=== PATIENT | male | born 1975 | race Caucasian/White ===

== ENCOUNTER 2018-01-18 14:51 | Emergency (ER) | payer MEDICAID ==
--- NOTE | 2018-01-18 15:31 | ER ---
Nurse's Notes [facility] Name: Juan Campos Age: 42 yrs Sex: Male : 1975 Arrival Date: 01/18/2018 Time: 14:54 Bed 14 Private MD: None, None Diagnosis: Unspecified hemorrhoids;Rectal pain;Anxiety disorder, unspecified Presentation: 01/18 15:05 Presenting complaint: Patient states: I was having a BM, and i think i strained to hard sg and now its sore down there. Well, when i wiped i also found blood on the tissue and in a little in the toilet. Theres a small bump that is red, i looked using a mirror, its right by the opening of my butt. Transition of care: patient was not received from another setting of care. Onset of symptoms was January 18, 2018. Risk Assessment: Do you want to hurt yourself or someone else? Patient reports no desire to harm self or others. Initial Sepsis Screen: Does the patient meet any 2 criteria? No. Patient's initial sepsis screen is negative. Does the patient have a suspected source of infection? No. Patient's initial sepsis screen is negative. Care prior to arrival: None. 15:05 Method Of Arrival: Ambulatory sg 15:05 Acuity: [place] 4 sg Triage Assessment: 15:15 General: Appears in no apparent distress. ph 16:06 General: Behavior is. ph Historical: - Allergies: 15:05 No Known Allergies; sg - Home Meds: 15:05 None [Active]; sg - PMHx: 15:05 Asthma; sg - PSHx: 15:05 Hernia repair; sg - Immunization history:: Adult Immunizations up to date. - Social history:: Smoking status: Patient/guardian denies using tobacco. - Ebola Screening: : Patient negative for fever greater than or equal to 101.5 degrees Fahrenheit, and additional compatible Ebola Virus Disease symptoms Patient denies exposure to infectious person Patient denies travel to an Ebola-affected area in the 21 days before illness onset No symptoms or risks identified at this time. Screenin:15 Abuse screen: Denies threats or abuse. Denies injuries from another. Nutritional ph screening: No deficits noted. Tuberculosis screening: No symptoms or risk factors identified. Fall Risk None identified. Assessment: 15:15 General: Appears in no apparent distress. uncomfortable, slender, Behavior is ph cooperative, anxious. Pain: Complains of pain in rectum. Neuro: Level of Consciousness is awake, alert, obeys commands, Oriented to person, place, time, situation. Cardiovascular: Capillary refill < 3 seconds in bilateral fingers Patient's skin is warm and dry. Respiratory: Airway is patent Respiratory effort is even, unlabored. GI: Reports rectal bleeding, hemorrhoids. Derm: Skin is intact, is healthy with good turgor. Vital Signs: 15:07 Pulse 83; Resp 16; Temp 98.0; Pulse Ox 100% on R/A; Pain 0/10; sg 15:07 blood pressure in progress at this time ED Course: 14:54 Patient arrived in ED. sb2 14:54 None, None is Private Physician. sb2 14:57 Cindy Portillo, RN is Primary Nurse. ph 14:59 Lis Lujan FNP-C [facility]. snw 14:59 To Wan MD is Attending Physician. snw 15:05 Arm band placed on. sg 15:07 Triage completed. sg 15:15 Patient has correct armband on for positive identification. Placed in gown. Bed in low ph position. Call light in reach. Pulse ox on. NIBP on. 15:51 No provider procedures requiring assistance completed. Patient did not have IV access ph during this emergency room visit. Administered Medications: No medications were administered Point of Care Testing: Blood Glucose: 15:12 Blood Glucose: 128 mg/dL; Ranges: Outcome: 15:30 Discharge ordered by MD. snw 15:51 Patient left the ED. ph 15:51 Discharged to home ambulatory. ph 15:51 Condition: good 15:51 Discharge instructions given to patient, Instructed on discharge instructions, follow up and referral plans. medication usage, Demonstrated understanding of instructions, follow-up care, medications, Prescriptions given X 1. Signatures: Miguel Loera RN RN Lis Lujan FNP-C FNP-Csnw Smirch, Shelby, RN RN Cindy Portillo RN RN Su Walsh sb2 Corrections: (The following items were deleted from the chart) 15:53 15:05 EKG completed in triage. Results shown to MD. ph 15:54 15:00 Abuse screen: Denies threats or abuse. Denies injuries from another. ph ph 15:54 15:00 Nutritional screening: No deficits noted. ph ph 15:54 15:00 Tuberculosis screening: No symptoms or risk factors identified. ph ph :54 15:00 Fall Risk None identified. ph ph
--- NOTE | 2018-01-18 15:31 | EDPHYS ---
Physician Documentation [facility] Name: Juan Campos Age: 42 yrs Sex: Male : 1975 Arrival Date: 01/18/2018 Time: 14:54 Bed 14 Private MD: None, None ED Physician To Wan HPI: 01/18 15:44 This 42 yrs old Male presents to ER via Ambulatory with complaints of Rectal snw Pain, Rectal Bleeding. 15:44 The patient presents to the emergency department with pain in the rectal area, that is snw mild, that is moderate. Onset: The symptoms/episode began/occurred suddenly, 1 week(s) ago, and became persistent. Context: the patient hard stool. Associate signs and symptoms: The patient has no apparent associated signs or symptoms. It is unknown whether or not the patient has had similar symptoms in the past. The patient has not recently seen a physician, the patient's primary care provider is Dr. Dr. Kendall. Historical: - Allergies: 15:05 No Known Allergies; sg - Home Meds: 15:05 None [Active]; sg - PMHx: 15:05 Asthma; sg - PSHx: 15:05 Hernia repair; sg - Immunization history:: Adult Immunizations up to date. - Social history:: Smoking status: Patient/guardian denies using tobacco. - Ebola Screening: : Patient negative for fever greater than or equal to 101.5 degrees Fahrenheit, and additional compatible Ebola Virus Disease symptoms Patient denies exposure to infectious person Patient denies travel to an Ebola-affected area in the 21 days before illness onset No symptoms or risks identified at this time. ROS: 15:42 Constitutional: Negative for fever, chills, and weight loss, Eyes: Negative for injury, snw pain, redness, and discharge, ENT: Negative for injury, pain, and discharge, Neck: Negative for injury, pain, and swelling, Cardiovascular: Negative for chest pain, palpitations, and edema, Respiratory: Negative for shortness of breath, cough, wheezing, and pleuritic chest pain, Back: Negative for injury and pain, : Negative for injury, bleeding, discharge, and swelling, MS/Extremity: Negative for injury and deformity, Skin: Negative for injury, rash, and discoloration, Neuro: Negative for headache, weakness, numbness, tingling, and seizure. 15:42 Abdomen/GI: Positive for rectal pain, s/p BM with significant need to strain. Exam: 15:40 Head/Face: Normocephalic, atraumatic. Eyes: Pupils equal round and reactive to light, snw extra-ocular motions intact. Lids and lashes normal. Conjunctiva and sclera are non-icteric and not injected. Cornea within normal limits. Periorbital areas with no swelling, redness, or edema. ENT: Nares patent. No nasal discharge, no septal abnormalities noted. Tympanic membranes are normal and external auditory canals are clear. Oropharynx with no redness, swelling, or masses, exudates, or evidence of obstruction, uvula midline. Mucous membranes moist. Neck: Trachea midline, no thyromegaly or masses palpated, and no cervical lymphadenopathy. Supple, full range of motion without nuchal rigidity, or vertebral point tenderness. No Meningismus. Chest/axilla: Normal chest wall appearance and motion. Nontender with no deformity. No lesions are appreciated. Cardiovascular: Regular rate and rhythm with a normal S1 and S2. No gallops, murmurs, or rubs. Normal PMI, no JVD. No pulse deficits. Respiratory: Lungs have equal breath sounds bilaterally, clear to auscultation and percussion. No rales, rhonchi or wheezes noted. No increased work of breathing, no retractions or nasal flaring. Abdomen/GI: Soft, non-tender, with normal bowel sounds. No distension or tympany. No guarding or rebound. No evidence of tenderness throughout. + right lateral hemorrhoid noted with mild tenderness, no bleeding 15:40 Back: No spinal tenderness. No costovertebral tenderness. Full range of motion. Skin: Warm, dry with normal turgor. Normal color with no rashes, no lesions, and no evidence of cellulitis. MS/ Extremity: Pulses equal, no cyanosis. Neurovascular intact. Full, normal range of motion. Neuro: Awake and alert, GCS 15, oriented to person, place, time, and situation. Cranial nerves II-XII grossly intact. Motor strength 5/5 in all extremities. Sensory grossly intact. Cerebellar exam normal. Normal gait. 15:40 Constitutional: The patient appears awake, anxious. 15:40 Psych: Behavior/mood is anxious, Affect is animated. Vital Signs: 15:07 Pulse 83; Resp 16; Temp 98.0; Pulse Ox 100% on R/A; Pain 0/10; sg 15:07 blood pressure in progress at this time sg MDM: 14:59 Patient medically screened. snw 15:43 Data reviewed: vital signs, nurses notes. Data interpreted: Pulse oximetry: on room air snw is 100 %. Interpretation: normal. Counseling: I had a detailed discussion with the patient and/or guardian regarding: the historical points, exam findings, and any diagnostic results supporting the discharge/admit diagnosis, the presence of at least one elevated blood pressure reading (>120/80) during this emergency department visit, the need for outpatient follow up, to return to the emergency department if symptoms worsen or persist or if there are any questions or concerns that arise at home. Special discussion: I have referred the patient to see his PCP for further evaluation of high blood pressure. Based on the history and exam findings, there is no indication for further emergent testing or inpatient evaluation. I discussed with the patient/guardian the need to see the primary care provider for further evaluation of the symptoms. I discussed with the patient/guardian the need to see the psychiatrist for further evaluation of the symptoms. Administered Medications: No medications were administered Point of Care Testing: Blood Glucose: 15:12 Blood Glucose: 128 mg/dL; ss Ranges: Critical Glucose Levels:Adult <50 mg/dl or >400 mg/dl <40 mg/dl or >180 mg/dl Disposition: 19:06 Co-signature as Attending Physician, To Wan MD I agree with the assessment and kdr plan of care. Disposition: 01/18/18 15:30 Discharged to Home. Impression: Unspecified hemorrhoids, Rectal pain, Anxiety disorder, unspecified. - Condition is Stable. - Discharge Instructions: Panic Attacks, Hemorrhoids, How to Take a Sitz Bath, Generalized Anxiety Disorder, Nonsurgical Procedures for Hemorrhoids. - Prescriptions for Proctofoam HC 1- 1 % Rectal foam - apply 1 application by TOPICAL route 3-4 times daily; 1 unit. - Medication Reconciliation Form, Thank You Letter, Antibiotic Education, Prescription Opioid Use form. - Follow up: Private Physician; When: 1 - 2 days; Reason: Recheck today's complaints, Continuance of care, Re-evaluation by your physician. Follow up: Emergency Department; When: As needed; Reason: Worsening of condition. Signatures: Miguel Loera RN RN sg To Wan MD MD [facility] Lis Lujan, [employer] MANAGER-C [employer] MANAGER-Csnw Cindy Portillo, RN RN ph Corrections: (The following items were deleted from the chart) 15:51 15:30 01/18/2018 15:30 Discharged to Home. Impression: Unspecified hemorrhoids; Rectal ph pain; Anxiety disorder, unspecified. Condition is Stable. Discharge Instructions: Hemorrhoids, How to Take a Sitz Bath, Nonsurgical Procedures for Hemorrhoids. Prescriptions for Proctofoam HC 1-1 % Rectal foam - apply 1 application by TOPICAL route 3-4 times daily; 1 unit. and Forms are Medication Reconciliation Form, Thank You Letter, Antibiotic Education, Prescription Opioid Use. Follow up: Private Physician; When: 1 - 2 days; Reason: Recheck today's complaints, Continuance of care, Re-evaluation by your physician. Follow up: Emergency Department; When: As needed; Reason: Worsening of condition. snw
== END 2018-01-18 15:51 | disposition home or self-care (01) ==
LOC: ER 14:51
DX: K64.9 Unspecified hemorrhoids (principal); F41.9 Anxiety disorder, unspecified
CPT/HCPCS: 82962; 99283

== ENCOUNTER 2018-01-20 06:34 | Emergency (ER) | payer MEDICAID ==
[2018-01-20 07:34] LABS: Absolute Lymphocytes (CBC) 3.1 K/uL (0.7-4.9); Absolute Monocytes 0.4 K/uL (0.1-1.3); Absolute Neutrophil 4.1 K/uL (1.8-8.0); Basophils % 0.3 % (0-1.3); Eosinophils % 3.1 % (0-4.4); Hematocrit 42.3 % (39.6-49.0); Lymphocytes % 39.8 % (15.3-44.8); MCH 29.7 pg (27.0-35.0); MCV 86.5 fL (80-100); MPV 9.7 fL (7.6-11.3); Monocytes % 5.1 % (3.3-12.3); RBC Red Blood Cell Count 4.89 M/uL (4.33-5.43)
[2018-01-20 07:46] LABS: Albumin 4.2 g/dL (3.4-5.0); Bilirubin Direct 0.2 mg/dL (0-0.2); Bilirubin Total 0.6 mg/dL (0.2-1.0); Potassium 3.3 mmol/L (3.5-5.1); Protein, Total 7.8 g/dL (6.4-8.2)
[2018-01-20] MEDS ORDERED: POTASSIUM CL SA 10 MEQ TAB PO ONE (08:24)
[2018-01-20] MEDS ORDERED: NA CHLORIDE 0.9% 1,000 ML ONE (08:24)
[2018-01-20] MEDS ORDERED: ONDANSETRON 4 MG/2 ML VIAL ONE (08:25)
--- NOTE | 2018-01-20 08:43 | EDPHYS ---
Physician Documentation [facility] Name: Juan Campos Age: 42 yrs Sex: Male : 1975 Arrival Date: 01/20/2018 Time: 06:37 Bed 8 Private MD: ED Physician Bhavesh Brown HPI: 01/20 07:23 This 42 yrs old Male presents to ER via Ambulatory with complaints of kb Vomiting, Weakness, SHAKING. 07:23 The patient presents to the emergency department with nausea, vomiting, abdominal pain, kb of the right lower quadrant and left lower quadrant. Onset: The symptoms/episode began/occurred 4 day(s) ago. Possible causes: sick contacts, mother has gangrene, also worried because someone that was near him last week had AIDS. . The symptoms are aggravated by nothing. The symptoms are alleviated by nothing. Associated signs and symptoms: Pertinent positives: abdominal pain, nausea, vomiting, rectal pain. Severity of symptoms: At their worst the symptoms were moderate in the emergency department the symptoms are unchanged. The patient has not experienced similar symptoms in the past. The patient has not recently seen a physician. Pt states he was visiting his mother out of state last week who has gangrene and is dying. States he went to the restroom and didn't have any toilet paper so he used a rag that was in the bathroom that was previously used by his mother. Pt is afraid he caught something from her and is infected now. States this happened 11 days ago (Tuesday, 01/10), he came home Tuesday (01/13) and his symptoms began on Tuesday (01/17). Was seen here for rectal pain after a hard stool and diagnosed with hemorrhoids. States he is still having rectal pain, hot and cold flashes, lower abd pain, nausea and vomiting. States "I have a lot going on with me. I don't know what is going on." Also concerned because he was near an aids patient so he thinks he could have caught something from him. . Historical: - Allergies: 06:58 No Known Allergies; bb - Home Meds: 06:58 None [Active]; bb - PMHx: 06:58 Bipolar disorder; anxiety; bb - PSHx: 06:58 Hernia repair; bb - Immunization history:: Adult Immunizations not up to date. - Social history:: Smoking status: Patient/guardian denies using tobacco, Patient/guardian denies using alcohol, street drugs. - Ebola Screening: : No symptoms or risks identified at this time. ROS: 07:23 ENT: Negative for injury, pain, and discharge, Neck: Negative for injury, pain, and kb swelling, Cardiovascular: Negative for chest pain, palpitations, and edema, Respiratory: Negative for shortness of breath, cough, wheezing, and pleuritic chest pain, Back: Negative for injury and pain, : Negative for injury, bleeding, discharge, and swelling, MS/Extremity: Negative for injury and deformity, Skin: Negative for injury, rash, and discoloration, Neuro: Negative for headache, weakness, numbness, tingling, and seizure. 07:23 Constitutional: Positive for body aches, chills, Negative for fatigue, fever, malaise, poor PO intake, weight loss. 07:23 Abdomen/GI: Positive for abdominal pain, nausea and vomiting, rectal pain. Exam: 07:23 Head/Face: Normocephalic, atraumatic. Chest/axilla: Normal chest wall appearance and kb motion. Nontender with no deformity. No lesions are appreciated. Cardiovascular: Regular rate and rhythm with a normal S1 and S2. No gallops, murmurs, or rubs. Normal PMI, no JVD. No pulse deficits. Respiratory: Lungs have equal breath sounds bilaterally, clear to auscultation and percussion. No rales, rhonchi or wheezes noted. No increased work of breathing, no retractions or nasal flaring. Abdomen/GI: Soft, non-tender, with normal bowel sounds. No distension or tympany. No guarding or rebound. No evidence of tenderness throughout. Back: No spinal tenderness. No costovertebral tenderness. Full range of motion. Skin: Warm, dry with normal turgor. Normal color with no rashes, no lesions, and no evidence of cellulitis. MS/ Extremity: Pulses equal, no cyanosis. Neurovascular intact. Full, normal range of motion. Neuro: Awake and alert, GCS 15, oriented to person, place, time, and situation. Cranial nerves II-XII grossly intact. Motor strength 5/5 in all extremities. Sensory grossly intact. Cerebellar exam normal. Normal gait. 07:23 Constitutional: The patient appears alert, awake, anxious. Vital Signs: 06:58 BP 127 / 97; Pulse 96; Resp 18 S; Temp 98.9(O); Pulse Ox 100% on R/A; Weight 81.65 kg bb (R); Height 6 ft. 0 in. (182.88 cm) (R); Pain 8/10; 07:32 BP 117 / 77; Pulse 77; Resp 17; Pulse Ox 97% on R/A; tw2 08:37 BP 122 / 83; Pulse 79; Resp 17; Pulse Ox 99% on R/A; tw2 09:11 BP 101 / 79; Pulse 73; Resp 17; Pulse Ox 99% on R/A; Pain 0/10; tw2 06:58 Body Mass Index 24.41 (81.65 kg, 182.88 cm) bb MDM: 06:41 Patient medically screened. kb 07:30 Data reviewed: vital signs, nurses notes. Data interpreted: Pulse oximetry: on room air kb is 100 %. Interpretation: normal. 08:41 Counseling: I had a detailed discussion with the patient and/or guardian regarding: the kb historical points, exam findings, and any diagnostic results supporting the discharge/admit diagnosis, lab results, the need for outpatient follow up, a family practitioner, to return to the emergency department if symptoms worsen or persist or if there are any questions or concerns that arise at home. ED course: Pt states he is feeling much better after treatment. . 01/20 06:50 Order name: Amylase, Serum; Complete Time: 07:54 kb 01/20 06:50 Order name: Basic Metabolic Panel; Complete Time: 07:54 kb 01/20 06:50 Order name: CBC with Diff; Complete Time: 07:41 kb 01/20 06:50 Order name: Hepatic Function; Complete Time: 07:54 kb 01/20 06:50 Order name: Lipase; Complete Time: 07:54 kb 01/20 08:49 Order name: Urine Dipstick--Ancillary (enter results) ag 01/20 06:50 Order name: IV Saline Lock; Complete Time: 06:58 kb 01/20 06:50 Order name: Labs collected and sent; Complete Time: 06:58 kb 01/20 06:50 Order name: Urine Dipstick-Ancillary (obtain specimen); Complete Time: 08:37 kb Administered Medications: 08:36 Drug: Potassium Chloride 20 mEq Route: PO; tw2 09:12 Follow up: Response: No adverse reaction tw2 08:36 Drug: NS 0.9% 1000 ml Route: IV; Rate: 1000 ml; Site: right antecubital; tw2 09:12 Follow up: Response: No adverse reaction; IV Status: Completed infusion; IV Intake: tw2 1000ml 08:36 Drug: Zofran 4 mg Route: IVP; Site: right antecubital; tw2 09:11 Follow up: Response: No adverse reaction tw2 Disposition: 14:45 Co-signature as Attending Physician, Bhavesh Brown MD I agree with the assessment and diane plan of care. Disposition: 01/20/18 08:42 Discharged to Home. Impression: Hemorrhoids and perianal venous thrombosis, Nausea and vomiting, Anxiety disorder, unspecified. - Condition is Stable. - Discharge Instructions: Nausea and Vomiting, Adult, [id number], Panic Attacks, [id number], Hemorrhoids, [id number]. - Prescriptions for Anusol- HC 2.5 % Rectal Cream - Apply to affected area 1 application by TOPICAL route every 8 hours As needed; 30 gram. Zofran 4 mg Oral Tablet - take 1 tablet by ORAL route every 6 hours As needed; 20 tablet. - Medication Reconciliation Form, Thank You Letter, Antibiotic Education, Prescription Opioid Use form. - Follow up: Emergency Department; When: As needed; Reason: Worsening of condition. Follow up: Private Physician; When: 2 - 3 days; Reason: Recheck today's complaints, Continuance of care, Re-evaluation by your physician. Signatures: Dispatcher [employer] [facility] Katherin Garcia, ROMY FAUSTIN-Bhavesh Hussein MD MD cha Ballard, Brenda, DRAKE RN Leia Brar RN RN tw2 Corrections: (The following items were deleted from the chart) 09:13 08:42 01/20/2018 08:42 Discharged to Home. Impression: Hemorrhoids and perianal venous tw2 thrombosis; Nausea and vomiting; Anxiety disorder, unspecified. Condition is Stable. Forms are Medication Reconciliation Form, Thank You Letter, Antibiotic Education, Prescription Opioid Use. Follow up: Emergency Department; When: As needed; Reason: Worsening of condition. Follow up: Private Physician; When: 2 - 3 days; Reason: Recheck today's complaints, Continuance of care, Re-evaluation by your physician. kb
--- NOTE | 2018-01-20 08:43 | ER ---
Nurse's Notes [facility] Name: Juan Campos Age: 42 yrs Sex: Male : 1975 Arrival Date: 01/20/2018 Time: 06:37 Bed 8 Private MD: Diagnosis: Hemorrhoids and perianal venous thrombosis;Nausea and vomiting;Anxiety disorder, unspecified Presentation: 01/20 06:52 Presenting complaint: Patient states: he is not feeling right was here 2 days ago and bb diagnosed with hemorrhoids but now is concerned because he was visiting his mother last week who is dying with gangrene and he is concerned he may have caught something she has, pt c/o hot and cold flashes, weakness, vomiting, rectal pain, shaking. Transition of care: patient was not received from another setting of care. Onset of symptoms was January 19, 2018. Risk Assessment: Do you want to hurt yourself or someone else? Patient reports no desire to harm self or others. Initial Sepsis Screen: Does the patient meet any 2 criteria? No. Patient's initial sepsis screen is negative. Does the patient have a suspected source of infection? No. Patient's initial sepsis screen is negative. Care prior to arrival: None. 06:52 Method Of Arrival: Ambulatory bb 06:52 Acuity: [place] 3 bb Historical: - Allergies: 06:58 No Known Allergies; bb - Home Meds: 06:58 None [Active]; bb - PMHx: 06:58 Bipolar disorder; anxiety; bb - PSHx: 06:58 Hernia repair; bb - Immunization history:: Adult Immunizations not up to date. - Social history:: Smoking status: Patient/guardian denies using tobacco, Patient/guardian denies using alcohol, street drugs. - Ebola Screening: : No symptoms or risks identified at this time. Screenin:49 Abuse screen: Denies threats or abuse. Nutritional screening: No deficits noted. tw2 Tuberculosis screening: No symptoms or risk factors identified. Fall Risk None identified. Assessment: 07:10 General: Appears in no apparent distress. Behavior is calm, appropriate for age. Pain: tw2 Denies pain. Neuro: Level of Consciousness is awake, alert, obeys commands, Oriented to person, place, time, situation. Cardiovascular: Denies chest pain, shortness of breath, Heart tones S1 S2 Patient's skin is warm and dry. Respiratory: Airway is patent Respiratory effort is even, unlabored, Respiratory pattern is regular, symmetrical, Breath sounds are clear bilaterally. GI: Abdomen is flat, non-distended, Bowel sounds present X 4 quads. Reports "maybe i am not eating enough or eating the right foods, i dont know what is wrong with me". : No signs and/or symptoms were reported regarding the genitourinary system. EENT: No signs and/or symptoms were reported regarding the EENT system. Derm: No signs and/or symptoms reported regarding the dermatologic system. Musculoskeletal: Range of motion: intact in all extremities. 07:33 Reassessment: Patient appears in no apparent distress at this time. No changes from tw2 previously documented assessment. Patient and/or family updated on plan of care and expected duration. Pain level reassessed. Patient is alert, oriented x 3, equal unlabored respirations, skin warm/dry/pink. 08:37 Reassessment: Patient appears in no apparent distress at this time. No changes from tw2 previously documented assessment. Patient and/or family updated on plan of care and expected duration. Pain level reassessed. Patient is alert, oriented x 3, equal unlabored respirations, skin warm/dry/pink. Patient states feeling better. 09:11 Reassessment: Patient appears in no apparent distress at this time. No changes from tw2 previously documented assessment. Patient and/or family updated on plan of care and expected duration. Pain level reassessed. Patient is alert, oriented x 3, equal unlabored respirations, skin warm/dry/pink. Patient states feeling better. Vital Signs: 06:58 BP 127 / 97; Pulse 96; Resp 18 S; Temp 98.9(O); Pulse Ox 100% on R/A; Weight 81.65 kg bb (R); Height 6 ft. 0 in. (182.88 cm) (R); Pain 8/10; 07:32 BP 117 / 77; Pulse 77; Resp 17; Pulse Ox 97% on R/A; tw2 08:37 BP 122 / 83; Pulse 79; Resp 17; Pulse Ox 99% on R/A; tw2 09:11 BP 101 / 79; Pulse 73; Resp 17; Pulse Ox 99% on R/A; Pain 0/10; tw2 06:58 Body Mass Index 24.41 (81.65 kg, 182.88 cm) bb ED Course: 06:37 Patient arrived in ED. al2 06:41 Katherin Garcia FNP-C is [facility]. kb 06:41 Bhavesh Brown MD is Attending Physician. kb 06:55 Triage completed. bb 06:58 Inserted saline lock: 20 gauge in right antecubital area, using aseptic technique. tl2 Blood collected. 06:58 Arm band placed on Patient placed in an exam room, on a stretcher, on pulse oximetry. bb 07:10 Bed in low position. Call light in reach. Pulse ox on. NIBP on. Warm blanket given. tw2 07:32 Leia Balderrama, RN is Primary Nurse. tw2 08:44 Awaiting: completion of IV fluids PRIOR to discharge. tw2 09:12 No provider procedures requiring assistance completed. IV discontinued, intact, tw2 bleeding controlled, No redness/swelling at site. Pressure dressing applied. Administered Medications: 08:36 Drug: Potassium Chloride 20 mEq Route: PO; tw2 09:12 Follow up: Response: No adverse reaction tw2 08:36 Drug: NS 0.9% 1000 ml Route: IV; Rate: 1000 ml; Site: right antecubital; tw2 09:12 Follow up: Response: No adverse reaction; IV Status: Completed infusion; IV Intake: tw2 1000ml 08:36 Drug: Zofran 4 mg Route: IVP; Site: right antecubital; tw2 09:11 Follow up: Response: No adverse reaction tw2 Intake: 09:12 IV: 1000ml; Total: 1000ml. tw2 Outcome: 08:42 Discharge ordered by . kb 09:12 Discharged to home ambulatory. tw2 09:12 Condition: stable 09:12 Discharge instructions given to patient, Instructed on discharge instructions, follow up and referral plans. medication usage, Demonstrated understanding of instructions, follow-up care, medications, Prescriptions given X 2. 09:13 Patient left the ED. tw2 Signatures: Katherin Garcia FNP-C FNP-Ckb Ballard, Brenda RN RN bb Leia Balderrama RN RN tw2 Myrna Hampton RN RN tl2 Peg Ocampo al2
[2018-01-20 11:40] LABS: Urine Blood NEGATIVE (NEG); Urine Glucose NEGATIVE (NEG); Urine Protein NEGATIVE (NEG); Urine Specific Gravity 1.015 (1.005-1.030)
== END 2018-01-20 09:13 | disposition home or self-care (01) ==
LOC: ER 06:34
DX: K64.5 Perianal venous thrombosis (principal); F41.9 Anxiety disorder, unspecified
CPT/HCPCS: 36415; 80048; 80076; 81003; 82150; 83690; 85025; 96361; 96374; 99284; J2405; J7030

== ENCOUNTER 2018-01-20 23:19 | Emergency (ER) | payer MEDICAID ==
--- NOTE | 2018-01-21 00:57 | ER ---
Nurse's Notes [facility] Name: Juan Campos Age: 42 yrs Sex: Male : 1975 Arrival Date: 01/20/2018 Time: 23:19 Bed 28 Private MD: Diagnosis: Contact with and (suspected) exposure to infections with a predominantly sexual mode of transmission Presentation: 01/20 23:45 Presenting complaint: Patient states: he is concerned he has an STD and he is unable to bb relax and is worried that he is sick. Transition of care: patient was not received from another setting of care. Onset of symptoms was January 21, 2018. Risk Assessment: Do you want to hurt yourself or someone else? Patient reports no desire to harm self or others. Initial Sepsis Screen: Does the patient meet any 2 criteria? No. Patient's initial sepsis screen is negative. Does the patient have a suspected source of infection? No. Patient's initial sepsis screen is negative. Care prior to arrival: None. 23:45 Method Of Arrival: Ambulatory bb 23:45 Acuity: [place] 4 bb Historical: - Allergies: 01/21 00:28 No Known Allergies; bb - Home Meds: 00:28 None [Active]; bb - PMHx: 00:28 Anxiety; Bipolar disorder; bb - PSHx: 00:28 Hernia repair; bb - Ebola Screening: : No symptoms or risks identified at this time. - Social history:: Smoking status: unknown. Screenin:42 Abuse screen: Denies threats or abuse. Denies injuries from another. Nutritional rv screening: No deficits noted. Tuberculosis screening: No symptoms or risk factors identified. Fall Risk None identified. Assessment: 00:42 General: Appears in no apparent distress. comfortable, Behavior is calm, cooperative. rv Pain: Complains of pain in abdomen. Neuro: Level of Consciousness is awake, alert, obeys commands, Oriented to person, place, time, situation. Cardiovascular: Capillary refill < 3 seconds. Respiratory: Airway is patent. GI: No signs and/or symptoms were reported involving the gastrointestinal system. : No signs and/or symptoms were reported regarding the genitourinary system. EENT: No signs and/or symptoms were reported regarding the EENT system. Derm: Skin is intact. Vital Signs: 00:28 BP 133 / 95; Pulse 84; Resp 16 S; Temp 99(O); Pulse Ox 100% on R/A; bb 00:43 BP 126 / 82; Pulse 91; Pulse Ox 100% ; rv 01:06 BP 145 / 89; rv ED Course: 01/20 23:19 Patient arrived in ED. ds1 23:53 Bhavesh Silva PA is PHCP. cp 23:53 Bhavesh Brown MD is Attending Physician. cp 01/21 00:27 Triage completed. bb 00:28 Arm band placed on Patient placed in an exam room, on a stretcher, on pulse oximetry. bb 00:43 Patient has correct armband on for positive identification. Bed in low position. Call rv light in reach. Side rails up X 1. Pulse ox on. NIBP on. 01:06 No provider procedures requiring assistance completed. Patient did not have IV access rv during this emergency room visit. Administered Medications: 01:04 Drug: Rocephin (cefTRIAXone) 250 mg Route: IM; Site: left deltoid; rv 01:05 Follow up: Response: Medication administered at discharge. rv 01:04 Drug: Zithromax 1 grams Route: PO; rv 01:05 Follow up: Response: Medication administered at discharge. rv Outcome: 00:56 Discharge ordered by . cp 01:06 Discharged to home ambulatory. rv 01:06 Condition: good 01:06 Discharge instructions given to patient, Instructed on discharge instructions, follow up and referral plans. safe sex practices. 01:07 Patient left the ED. rv Signatures: Gricel Connelly ds1 Desiree Herrera RN RN Bhavesh Gibson PA PA cp Jos éAntonio Yen RN RN rv
--- NOTE | 2018-01-21 00:57 | EDPHYS ---
Physician Documentation [facility] Name: Juan Campos Age: 42 yrs Sex: Male : 1975 Arrival Date: 01/20/2018 Time: 23:19 Bed 28 Private MD: ED Physician Bhavesh Brown HPI: 01/21 00:45 This 42 yrs old Male presents to ER via Ambulatory with complaints of Chills, cp Side Pain. 00:45 The patient presents with a possible STD exposure. Onset: The symptoms/episode cp began/occurred at an unknown time. Associated signs and symptoms: Pertinent positives: diarrhea, urinary frequency, Pertinent negatives: dysuria, fever, penile discharge. Reports he believes spouse has had extramarital affair. Historical: - Allergies: 00:28 No Known Allergies; bb - Home Meds: 00:28 None [Active]; bb - PMHx: 00:28 Anxiety; Bipolar disorder; bb - PSHx: 00:28 Hernia repair; bb - Ebola Screening: : No symptoms or risks identified at this time. - Social history:: Smoking status: unknown. ROS: 00:50 Eyes: Negative for injury, pain, redness, and discharge. cp 00:50 Constitutional: Negative for body aches, chills, fever, poor PO intake. 00:50 ENT: Negative for ear pain, sore throat, difficulty swallowing, difficulty handling secretions. 00:50 Cardiovascular: Negative for chest pain, edema, palpitations. 00:50 Respiratory: Negative for cough, shortness of breath, wheezing. 00:50 Abdomen/GI: Positive for diarrhea, Negative for abdominal pain, vomiting, constipation, black/tarry stool, rectal bleeding. 00:50 : Positive for urinary frequency, Negative for flank pain, penile discharge, testicular pain 00:50 Skin: Negative for cellulitis, rash. 00:50 All other systems are negative. Exam: 00:52 Head/Face: Normocephalic, atraumatic. cp 00:52 Constitutional: The patient appears in no acute distress, alert, awake, non-toxic, well developed, well nourished. 00:52 Eyes: Periorbital structures: appear normal, Conjunctiva: normal, no exudate, no injection, Lids and lashes: appear normal, bilaterally. 00:52 ENT: External ear(s): are unremarkable, Nose: is normal, Mouth: Lips: moist, Oral mucosa: moist, Posterior pharynx: is normal, airway is patent. 00:52 Chest/axilla: Inspection: normal. 00:52 Cardiovascular: Rate: normal. 00:52 Respiratory: the patient does not display signs of respiratory distress, Respirations: normal, no use of accessory muscles, no retractions, no splinting, no tachypnea. 00:52 Abdomen/GI: Inspection: abdomen appears normal, Palpation: abdomen is soft and non-tender, in all quadrants. 00:52 : Male external genitalia: normal, no discharge, no erythema, Sexual behavior: the patient is sexually active, and reports multiple partners. 00:52 Skin: cellulitis, is not appreciated, no rash present. Vital Signs: 00:28 BP 133 / 95; Pulse 84; Resp 16 S; Temp 99(O); Pulse Ox 100% on R/A; bb 00:43 BP 126 / 82; Pulse 91; Pulse Ox 100% ; rv 01:06 BP 145 / 89; rv MDM: 01/20 23:53 Patient medically screened. cp 01/21 00:55 Differential diagnosis: UTI, urinary retention, prostatitis, urethritis, STD. cp 00:55 Data reviewed: vital signs, nurses notes, and as a result, I will discharge patient. cp Counseling: I had a detailed discussion with the patient and/or guardian regarding: the historical points, exam findings, and any diagnostic results supporting the discharge/admit diagnosis, to return to the emergency department if symptoms worsen or persist or if there are any questions or concerns that arise at home. 01/21 00:57 Order name: GC (GONORR/CHLAMYDIA) Probe 01/21 01:01 Order name: Urine Dipstick--Ancillary (enter results) rg2 01/21 00:47 Order name: Urine Dipstick-Ancillary (obtain specimen); Complete Time: 00:53 01/21 01:01 Order name: Urine Dipstick-Ancillary EDMS Administered Medications: 01:04 Drug: Rocephin (cefTRIAXone) 250 mg Route: IM; Site: left deltoid; rv 01:05 Follow up: Response: Medication administered at discharge. rv 01:04 Drug: Zithromax 1 grams Route: PO; rv 01:05 Follow up: Response: Medication administered at discharge. rv Disposition: 01/21/18 00:56 Discharged to Home. Impression: Contact with and (suspected) exposure to infections with a predominantly sexual mode of transmission. - Condition is Stable. - Discharge Instructions: Sexually Transmitted Disease. - Medication Reconciliation Form, Thank You Letter, Antibiotic Education, Prescription Opioid Use form. - Follow up: Private Physician; When: 2 - 3 days; Reason: Recheck today's complaints. - Problem is new. - Symptoms have improved. Addendum: 01/23/2018 08:58 Co-signature as Attending Physician, Bhavesh Brown MD I agree with the assessment and c wallace plan of care. Signatures: Dispatcher [employer] EDBhavesh Miramontes MD MD cha Ballard, Brenda, RN RN bb Bhavesh Silva PA PA cp Vicente, Ronaldo, RN RN rv Corrections: (The following items were deleted from the chart) 01/21 00:49 00:47 This 42 yrs old Male presents to ER via Ambulatory with complaints of cp Chills, Side Pain. cp 01:07 00:56 01/21/2018 00:56 Discharged to Home. Impression: Contact with and (suspected) rv exposure to infections with a predominantly sexual mode of transmission. Condition is Stable. Forms are Medication Reconciliation Form, Thank You Letter, Antibiotic Education, Prescription Opioid Use. Follow up: Private Physician; When: 2 - 3 days; Reason: Recheck today's complaints. Problem is new. Symptoms have improved. cp
[2018-01-21] MEDS ORDERED: CEFTRIAXONE 250 MG/VIAL ONE (00:59)
[2018-01-21] MEDS ORDERED: AZITHROMYCIN 250 MG TAB ONE (00:59)
[2018-01-21 01:50] LABS: Urine Blood 2+ (NEG); Urine Glucose NEGATIVE (NEG); Urine Protein NEGATIVE (NEG); Urine pH 8.5 (5.0-7.0)
[2018-01-25 07:21] LABS: C.trachomatis RNA,TMA Not Detected (Not Detected)
== END 2018-01-21 01:07 | disposition home or self-care (01) ==
LOC: ER 23:19
DX: Z77.21 Contact with and (suspected) exposure to potentially hazardous body fluids (principal); Z20.2 Contact with and (suspected) exposure to infections with a predominantly sexual mode of transmission
CPT/HCPCS: 81003; 87490; 87590; 96372; 99283; J0696

== ENCOUNTER 2018-01-22 15:44 | Emergency (ER) | payer MEDICAID ==
--- NOTE | 2018-01-22 16:26 | ER ---
Nurse's Notes [facility] Name: Juan Campos Age: 42 yrs Sex: Male : 1975 Arrival Date: 01/22/2018 Time: 15:46 Bed 23 Private MD: Diagnosis: Anxiety disorder, unspecified;Hemorrhoid Presentation: 01/22 15:48 Presenting complaint: EMS states: pt reports pain from Hemoriod, seen here day before tl3 yesterday for same. Transition of care: patient was not received from another setting of care. Onset of symptoms was January 22, 2018 at 15:53. Risk Assessment: Do you want to hurt yourself or someone else? Patient reports no desire to harm self or others. Initial Sepsis Screen: Does the patient meet any 2 criteria? No. Patient's initial sepsis screen is negative. Does the patient have a suspected source of infection? No. Patient's initial sepsis screen is negative. Care prior to arrival: None. 15:48 Method Of Arrival: EMS tl3 15:48 Acuity: [place] 4 tl3 Triage Assessment: 15:54 General: Appears in no apparent distress. comfortable, slender, well groomed, well tl3 developed, well nourished, Behavior is calm, cooperative, appropriate for age. Pain: Complains of pain in rectal Pain. EENT: No signs and/or symptoms were reported regarding the EENT system. Neuro: Cardiovascular: Denies Patient's skin is warm and dry. Respiratory: Airway is patent Respiratory effort is even, unlabored, Respiratory pattern is regular, symmetrical. GI: GI: Abdomen is non-distended. : No signs and/or symptoms were reported regarding the genitourinary system. Derm: No signs and/or symptoms reported regarding the dermatologic system. Musculoskeletal: No signs and/or symptoms reported regarding the musculoskeletal system. Historical: - Allergies: 15:54 No Known Drug Allergies; tl3 - PMHx: 15:54 Anxiety; Bipolar disorder; tl3 - PSHx: 15:54 Hernia repair; tl3 - Immunization history:: Adult Immunizations up to date. - Social history:: Smoking status: unknown. - Ebola Screening: : No symptoms or risks identified at this time. Screenin:02 Abuse screen: Denies threats or abuse. Nutritional screening: No deficits noted. tl3 Tuberculosis screening: No symptoms or risk factors identified. Fall Risk None identified. Assessment: 16:02 Reassessment: No changes from previously documented assessment. Patient is alert, tl3 oriented x 3, equal unlabored respirations, skin warm/dry/pink. [place] at bedside for assessment. 16:32 Reassessment: Patient appears in no apparent distress at this time. No changes from tl3 previously documented assessment. Patient and/or family updated on plan of care and expected duration. Pain level reassessed. Patient is alert, oriented x 3, equal unlabored respirations, skin warm/dry/pink. Vital Signs: 15:54 BP 113 / 90; Pulse 82; Resp 18; Pulse Ox 100% on R/A; tl3 16:32 BP 128 / 86; Pulse 77; Resp 18; Pulse Ox 100% on R/A; tl3 ED Course: 15:46 Patient arrived in ED. iw 15:48 Israel Romero PA is PHCP. jr8 15:48 Bhavesh Brown MD is Attending Physician. jr8 15:48 Nessa Brown, DRAKE is Primary Nurse. tl3 15:53 Triage completed. tl3 15:54 Arm band placed on right wrist. tl3 16:02 Allergy band placed. Bed in low position. Pulse ox on. NIBP on. Warm blanket given. tl3 Pillow given. 16:02 No provider procedures requiring assistance completed. Patient did not have IV access tl3 during this emergency room visit. 16:25 Zbigniew Flores MD is Referral Physician. jr8 Administered Medications: No medications were administered Outcome: 16:26 Discharge ordered by . 8 16:32 Discharged to home ambulatory. tl3 16:32 Condition: good 16:32 Discharge instructions given to patient, Instructed on discharge instructions, follow up and referral plans. medication usage, Demonstrated understanding of instructions, follow-up care, medications, Prescriptions given X 1. 16:39 Patient left the ED. tl3 Signatures: Rosey Alcantara RN RN Israel Romero PA PA Nessa Kwon, DRAKE RN tl3
--- NOTE | 2018-01-22 16:26 | EDPHYS ---
Physician Documentation [facility] Name: Juan Campos Age: 42 yrs Sex: Male : 1975 Arrival Date: 01/22/2018 Time: 15:46 Bed 23 Private MD: ED Physician Bhavesh Brown HPI: 01/22 16:20 This 42 yrs old Male presents to ER via EMS with complaints of hemorrhoid jr8 pain/anxiety. 16:20 Patient stated that he has been seen here over the past few days. Stated that he has jr8 had hemorrhoid pain over the past couple of days. Has been prescribed medication to help in relief of this. Stated that he has been in contact with gangrene and other various infections and thinks he is infected. Very anxious and has not been able to sleep . Severity of symptoms: At their worst the symptoms were mild in the emergency department the symptoms are unchanged. The patient has not experienced similar symptoms in the past. The patient has been recently seen by a physician:. Historical: - Allergies: 15:54 No Known Drug Allergies; tl3 - PMHx: 15:54 Anxiety; Bipolar disorder; tl3 - PSHx: 15:54 Hernia repair; tl3 - Immunization history:: Adult Immunizations up to date. - Social history:: Smoking status: unknown. - Ebola Screening: : No symptoms or risks identified at this time. ROS: 16:20 Eyes: Negative for injury, pain, redness, and discharge, ENT: Negative for injury, jr8 pain, and discharge, Neck: Negative for injury, pain, and swelling, Cardiovascular: Negative for chest pain, palpitations, and edema, Respiratory: Negative for shortness of breath, cough, wheezing, and pleuritic chest pain, Abdomen/GI: Negative for abdominal pain, nausea, vomiting, diarrhea, and constipation. Positive for rectal pain Back: Negative for injury and pain, MS/Extremity: Negative for injury and deformity, Skin: Negative for injury, rash, and discoloration, Neuro: Negative for headache, weakness, numbness, tingling, and seizure. 16:20 Psych: Positive for anxiety, Negative for depression, drug dependence, visual jr8 hallucinations, homicidal ideation, insomnia, suicide gesture, suicidal ideation. Exam: 16:20 Eyes: Pupils equal round and reactive to light, extra-ocular motions intact. Lids and jr8 lashes normal. Conjunctiva and sclera are non-icteric and not injected. Cornea within normal limits. Periorbital areas with no swelling, redness, or edema. ENT: Nares patent. No nasal discharge, no septal abnormalities noted. Tympanic membranes are normal and external auditory canals are clear. Oropharynx with no redness, swelling, or masses, exudates, or evidence of obstruction, uvula midline. Mucous membranes moist. Neck: Trachea midline, no thyromegaly or masses palpated, and no cervical lymphadenopathy. Supple, full range of motion without nuchal rigidity, or vertebral point tenderness. No Meningismus. Cardiovascular: Regular rate and rhythm with a normal S1 and S2. No gallops, murmurs, or rubs. Normal PMI, no JVD. No pulse deficits. Respiratory: Lungs have equal breath sounds bilaterally, clear to auscultation and percussion. No rales, rhonchi or wheezes noted. No increased work of breathing, no retractions or nasal flaring. Back: No spinal tenderness. No costovertebral tenderness. Full range of motion. Skin: Warm, dry with normal turgor. Normal color with no rashes, no lesions, and no evidence of cellulitis. MS/ Extremity: Pulses equal, no cyanosis. Neurovascular intact. Full, normal range of motion. Neuro: Awake and alert, GCS 15, oriented to person, place, time, and situation. Cranial nerves II-XII grossly intact. Motor strength 5/5 in all extremities. Sensory grossly intact. Cerebellar exam normal. Normal gait. 16:20 Abdomen/GI: Inspection: abdomen appears normal, Bowel sounds: active, all quadrants, Palpation: abdomen is soft and non-tender, in all quadrants, Rectal exam: hemorrhoid(s), external, with inflammation, with pain, without bleeding, without thrombosis, Indicators: McBurney's point is not tender, Waldron's sign is negative, Rovsing's sign is negative, Liver: tenderness, is not appreciated. Vital Signs: 15:54 BP 113 / 90; Pulse 82; Resp 18; Pulse Ox 100% on R/A; tl3 16:32 BP 128 / 86; Pulse 77; Resp 18; Pulse Ox 100% on R/A; tl3 MDM: 15:[address] [facility] 16:20 Data reviewed: vital signs, nurses notes, old medical records. Data interpreted: Pulse jr8 oximetry: on room air is 100 %. Interpretation: normal. 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 ED course: Discussed with patient that he needs to follow up with GI for his hemorrhoid. That at this time it is not thrombosed. That we would help him with his anxiety. That all labs over the past few days have been without significant finding. To continue to use his hemorrhoid cream as prescribed. Patient is good with this and will follow up. Has appointment with PCP tomorrow . Administered Medications: No medications were administered Disposition: 01/23 09:19 Co-signature as Attending Physician, Bhavesh Brown MD I agree with the assessment and diane plan of care. Disposition: 01/22/18 16:26 Discharged to Home. Impression: Anxiety disorder, unspecified, Hemorrhoid . - Condition is Stable. - Discharge Instructions: Panic Attacks, Hemorrhoids. - Prescriptions for Hydroxyzine HCl 50 mg Oral Tablet - take 1 tablet by ORAL route every 8 hours As needed; 30 tablet. - Medication Reconciliation Form, Thank You Letter, Antibiotic Education, Prescription Opioid Use form. - Follow up: Zbigniew Flores MD; When: 2 - 3 days; Reason: Recheck today's complaints, Continuance of care, Re-evaluation by your physician. - Problem is new. - Symptoms have improved. Signatures: Bhavesh Brown MD MD cha Roszak, Josh, PA PA jr8 Nessa Brown, RN RN tl3 Corrections: (The following items were deleted from the chart) 01/22 16:39 16:26 01/22/2018 16:26 Discharged to Home. Impression: Anxiety disorder, unspecified; tl3 Hemorrhoid . Condition is Stable. Forms are Medication Reconciliation Form, Thank You Letter, Antibiotic Education, Prescription Opioid Use. Follow up: Zbigniew Flores; When: 2 - 3 days; Reason: Recheck today's complaints, Continuance of care, Re-evaluation by your physician. Problem is new. Symptoms have improved. jr8
== END 2018-01-22 16:39 | disposition home or self-care (01) ==
LOC: ER 15:44
DX: K64.9 Unspecified hemorrhoids (principal); F41.9 Anxiety disorder, unspecified
CPT/HCPCS: 99283

== ENCOUNTER 2018-01-24 03:39 | Emergency (ER) | payer MEDICAID ==
--- NOTE | 2018-01-24 04:18 | EDPHYS ---
Physician Documentation [facility] Name: Juan Campos Age: 42 yrs Sex: Male : 1975 Arrival Date: 01/24/2018 Time: 03:41 Bed Waiting Private MD: ED Physician Prakash Villasenor HPI: 01/24 03:56 This 42 yrs old Male presents to ER via Ambulatory with complaints of Not tw4 able to sleep. 03:56 pt states that he has insomnia that started today. pt has been to the ER recently for tw4 similar complaints. Denies other symptoms. Onset: The symptoms/episode began/occurred today. Severity of symptoms: At their worst the symptoms were moderate in the emergency department the symptoms are unchanged. The patient has not experienced similar symptoms in the past. Historical: - Allergies: 03:49 No Known Allergies; ak1 - Home Meds: 03:49 Unable to obtain [Active]; ak1 - PMHx: 03:49 Anxiety; Bipolar disorder; ak1 - PSHx: 03:49 Hernia repair; ak1 - Immunization history:: Adult Immunizations unknown. - Social history:: Smoking status: Patient/guardian denies using tobacco. - Ebola Screening: : No symptoms or risks identified at this time. ROS: 03:56 Constitutional: Negative for fever, chills, and weight loss, Cardiovascular: Negative tw4 for chest pain, palpitations, and edema, Respiratory: Negative for shortness of breath, cough, wheezing, and pleuritic chest pain, Abdomen/GI: Negative for abdominal pain, nausea, vomiting, diarrhea, and constipation, Back: Negative for injury and pain, MS/Extremity: Negative for injury and deformity, Skin: Negative for injury, rash, and discoloration. 03:56 Neuro: Positive for insomnia. Exam: 03:56 Constitutional: This is a well developed, well nourished patient who is awake, alert, tw4 and in no acute distress. Head/Face: Normocephalic, atraumatic. Chest/axilla: Normal chest wall appearance and motion. Nontender with no deformity. No lesions are appreciated. Cardiovascular: Regular rate and rhythm with a normal S1 and S2. No gallops, murmurs, or rubs. Normal PMI, no JVD. No pulse deficits. Respiratory: Lungs have equal breath sounds bilaterally, clear to auscultation and percussion. No rales, rhonchi or wheezes noted. No increased work of breathing, no retractions or nasal flaring. Abdomen/GI: Soft, non-tender, with normal bowel sounds. No distension or tympany. No guarding or rebound. No evidence of tenderness throughout. Skin: Warm, dry with normal turgor. Normal color with no rashes, no lesions, and no evidence of cellulitis. MS/ Extremity: Pulses equal, no cyanosis. Neurovascular intact. Full, normal range of motion. Neuro: Awake and alert, GCS 15, oriented to person, place, time, and situation. Cranial nerves II-XII grossly intact. Motor strength 5/5 in all extremities. Sensory grossly intact. Cerebellar exam normal. Normal gait. 03:56 Psych: Behavior/mood is anxious, Affect is flat, Oriented to person, place, time, Patient has no thoughts/intents to harm self or others. Vital Signs: 03:51 BP 125 / 97; Pulse 88; Resp 18; Temp 98.4; Pulse Ox 100% on R/A; Weight 81.65 kg (R); ak1 Height 6 ft. 0 in. (182.88 cm); Pain 06/15; 03:51 Body Mass Index 24.41 (81.65 kg, 182.88 cm) ak1 MDM: 04:02 Data reviewed: vital signs, nurses notes. Counseling: I had a detailed discussion with [facility] the patient and/or guardian regarding: the historical points, exam findings, and any diagnostic results supporting the discharge/admit diagnosis. Medical screen evaluation completed. EMTALA emergency medical condition absent. Special discussion: I discussed with the patient/guardian in detail that at this point there is no indication for admission to the hospital. It is understood, however, that if the symptoms persist or worsen the patient needs to return immediately for re-evaluation. Administered Medications: No medications were administered Disposition: 04:02 medical screening exam- nonurgent no medical emergency exists. [facility] Disposition: 01/24/18 04:17 Discharged to Home as Medical Screen. Impression: medical screening exam-emergency medical condition absent. - Condition is Stable. - Medication Reconciliation Form, Thank You Letter, Antibiotic Education, Prescription Opioid Use form. Signatures: Shireen Ahmadi RN RN aa1 Marina Sterling RN RN ak1 Prakash Villasenor MD MD tw4 Corrections: (The following items were deleted from the chart) 04:17 04:17 01/24/2018 04:17 Discharged to Home as Medical Screen. Impression: medical aa1 screening exam-emergency medical condition absent. Condition is Stable. Forms are Medication Reconciliation Form, Thank You Letter, Antibiotic Education, Prescription Opioid Use. aa1
--- NOTE | 2018-01-24 04:18 | ER ---
Nurse's Notes [facility] Name: Juan Campos Age: 42 yrs Sex: Male : 1975 Arrival Date: 01/24/2018 Time: 03:41 Bed Waiting Private MD: Diagnosis: medical screening exam-emergency medical condition absent Presentation: 01/24 03:51 Presenting complaint: Patient states: he has been to ER multiple times, and was seen by ak1 his PCP. pt stated he can not sleep. pt denies trying OTC medications. Transition of care: patient was not received from another setting of care. Onset of symptoms is unknown. Risk Assessment: Do you want to hurt yourself or someone else? Patient reports no desire to harm self or others. Initial Sepsis Screen: Does the patient meet any 2 criteria? No. Patient's initial sepsis screen is negative. Does the patient have a suspected source of infection? No. Patient's initial sepsis screen is negative. Care prior to arrival: None. 03:51 Method Of Arrival: Ambulatory ak1 03:51 Acuity: [place] 5 ak1 Triage Assessment: 03:49 General: Appears in no apparent distress. Behavior is cooperative, agitated, anxious. ak1 Pain: Denies pain. EENT: No signs and/or symptoms were reported regarding the EENT system. Neuro: Level of Consciousness is awake, alert, obeys commands, Oriented to person, place, time, situation, Color Receiver are equal bilaterally Moves all extremities. Gait is steady, Speech is normal, Facial symmetry appears normal. Cardiovascular: No deficits noted. Respiratory: No deficits noted. GI: No signs and/or symptoms were reported involving the gastrointestinal system. : No signs and/or symptoms were reported regarding the genitourinary system. Derm: No signs and/or symptoms reported regarding the dermatologic system. Musculoskeletal: No signs and/or symptoms reported regarding the musculoskeletal system. Historical: - Allergies: 03:49 No Known Allergies; ak1 - Home Meds: 03:49 Unable to obtain [Active]; ak1 - PMHx: 03:49 Anxiety; Bipolar disorder; ak1 - PSHx: 03:49 Hernia repair; ak1 - Immunization history:: Adult Immunizations unknown. - Social history:: Smoking status: Patient/guardian denies using tobacco. - Ebola Screening: : No symptoms or risks identified at this time. Screenin:53 Abuse screen: Denies threats or abuse. Denies injuries from another. Nutritional ak1 screening: No deficits noted. Tuberculosis screening: No symptoms or risk factors identified. Fall Risk None identified. Vital Signs: 03:51 BP 125 / 97; Pulse 88; Resp 18; Temp 98.4; Pulse Ox 100% on R/A; Weight 81.65 kg (R); ak1 Height 6 ft. 0 in. (182.88 cm); Pain 06/15; 03:51 Body Mass Index 24.41 (81.65 kg, 182.88 cm) ak1 ED Course: 03:41 Patient arrived in ED. es 03:51 Arm band placed on Patient placed in waiting room, Patient notified of wait time. ak1 03:52 Triage completed. ak1 04:17 Prakash Villasenor MD is Attending Physician. aa1 Administered Medications: No medications were administered Outcome: 03:59 Medical screen evaluation completed per provider. Patient declined treatment. ak1 03:59 Following a medical screening exam, the patient was provided information regarding aa1 alternative care sites and resources available per registration personnel. 04:17 Discharge ordered by . aa1 04:17 Patient left the ED. aa1 Signatures: Shireen Ahmadi, RN RN aa1 Isabella Denis Amber RN RN ak1
== END 2018-01-24 04:17 | disposition home or self-care (01) ==
LOC: ER 03:39
DX: Z13.9 Encounter for screening, unspecified (principal)
CPT/HCPCS: 99281

== ENCOUNTER 2018-01-25 08:26 | Emergency (ER) | payer MEDICAID ==
[2018-01-25 09:13] LABS: Urine Blood NEGATIVE (NEG); Urine Glucose NEGATIVE (NEG); Urine Protein NEGATIVE (NEG); Urine Specific Gravity >1.030 (1.005-1.030); Urine pH 5.5 (5.0-7.0)
[2018-01-25 09:16] LABS: Absolute Lymphocytes (CBC) 2.6 K/uL (0.7-4.9); Absolute Monocytes 0.5 K/uL (0.1-1.3); Absolute Neutrophil 4.7 K/uL (1.8-8.0); Basophils % 0.4 % (0-1.3); Eosinophils % 1.3 % (0-4.4); Hematocrit 43.4 % (39.6-49.0); Lymphocytes % 32.5 % (15.3-44.8); MCH 30.3 pg (27.0-35.0); MPV 9.5 fL (7.6-11.3); Monocytes % 6.6 % (3.3-12.3)
[2018-01-25 09:21] LABS: Urine Bacteria NONE SEEN /HPF (NONE SEEN); Urine Culture Reflex Order NOT NEEDED; Urine Mucus MOD /HPF (NONE SEEN); Urine RBC <5 /HPF (NONE SEEN)
--- NOTE | 2018-01-25 09:22 | RAD REPORT ---
EXAM DESCRIPTION: CT - Stone Protocol - 01/25/2018 9:06 am CLINICAL HISTORY: Left flank pain, dysuria COMPARISON: None. TECHNIQUE: Axial 5 mm thick images were obtained without oral or IV contrast. The [id number] span s the entirety of the system including uppermost abdomen and lung bases. All CT scans are performed using dose optimization technique as appropriate and may include automated exposure control or mA/KV adjustment according to patient size. FINDINGS: No hydronephrosis is present and no obstructing ureteral calculi. No suspicious renal mass es. Isodense masses and pyelonephritis are not excluded on a stone protocol CT scan. Urinary bladder is contracted. No bladder calculus. Prostate gland and seminal vesicles are normal range. Imaged portions of the liver, spleen and pancreas show no suspicious findings on non-contrast imaging . A 2.6 centimeter cyst is seen the lateral subcapsular right lobe. A 17 millimeter low-density area in the anterior superior spleen is probably a cyst. Long-term significance is doubtful. Gallbladder i s contracted. No gallbladder or biliary tree abnormality suspected. Stones and sludge can be occult. No significant adrenal finding. No suspicious bowel findings. No hernia, mass or bulky lymphadenopathy noted. No free air, free fluid or inflammatory stranding. No significant bony abnormality. IMPRESSION: Negative CT stone protocol study. Isodense masses and pyelonephritis are not excluded on stone protocol technique. Nonacute findings detailed in the body of the report.
[2018-01-25 09:34] LABS: Potassium 3.1 mmol/L (3.5-5.1)
--- NOTE | 2018-01-25 09:37 | ER ---
Nurse's Notes [facility] Name: Juan Campos Age: 42 yrs Sex: Male : 1975 Arrival Date: 01/25/2018 Time: 08:28 Bed 14 Private MD: Diagnosis: Dysuria;Unspecified abdominal pain Presentation: 01/25 08:40 Presenting complaint: Patient states: c/o left flank pain that started a day ago, iw intermittent sharp pain, also has burning with urination, mild chest tightness, mild difficulty breathing, appears anxious, was seen here yesterday and "they stuck something in me to check for STDs". Transition of care: patient was not received from another setting of care. Onset of symptoms was January 25, 2018. Risk Assessment: Do you want to hurt yourself or someone else? Patient reports no desire to harm self or others. Initial Sepsis Screen: Does the patient meet any 2 criteria? No. Patient's initial sepsis screen is negative. Does the patient have a suspected source of infection? No. Patient's initial sepsis screen is negative. Care prior to arrival: None. 08:40 Method Of Arrival: Wheelchair iw 08:40 Acuity: [place]ORD 3 iw Historical: - Allergies: 08:43 NKA; iw - PMHx: 08:43 Anxiety; Bipolar disorder; iw - PSHx: 08:43 Hernia repair; iw - Immunization history:: Adult Immunizations not up to date. - Social history:: Smoking status: Patient/guardian denies using tobacco. - Ebola Screening: : Patient negative for fever greater than or equal to 101.5 degrees Fahrenheit, and additional compatible Ebola Virus Disease symptoms Patient denies exposure to infectious person Patient denies travel to an Ebola-affected area in the 21 days before illness onset No symptoms or risks identified at this time. - Family history:: not pertinent. - Hospitalizations: : No recent hospitalization is reported. Screenin:08 Abuse screen: Denies threats or abuse. Nutritional screening: No deficits noted. em Tuberculosis screening: No symptoms or risk factors identified. Fall Risk None identified. Assessment: 09:00 General: Appears in no apparent distress. comfortable, Behavior is calm, cooperative, em anxious, Denies fever. Pain: Complains of pain in low back area Pain radiates to abdomen Pain currently is 9 out of 10 on a pain scale. Pain began 1 day ago. Neuro: Level of Consciousness is awake, alert, obeys commands, Oriented to person, place, time. Cardiovascular: Reports shortness of breath, Heart tones S1 S2 present Capillary refill < 3 seconds Patient's skin is warm and dry. Respiratory: Airway is patent Respiratory effort is even, unlabored, Respiratory pattern is regular, symmetrical. GI: Abdomen is flat, Bowel sounds present X 4 quads. Abd is soft and non tender X 4 quads. : Urine is clear, Reports burning with urination, since yesterday. EENT: No signs and/or symptoms were reported regarding the EENT system. Derm: Skin is intact, Skin is pink, warm \\T\\ dry. Musculoskeletal: Range of motion: intact in all extremities. 09:20 Reassessment: Patient appears in no apparent distress at this time. I agree with above iw assessment by Juvenal Luu LVN. 09:54 Reassessment: Patient appears in no apparent distress at this time. Patient and/or em family updated on plan of care and expected duration. Pain level reassessed. Patient is alert, oriented x 3, equal unlabored respirations, skin warm/dry/pink. Dr. Lund at bedside discussing POC. Vital Signs: 08:43 BP 132 / 90; Pulse 82; Resp 16; Temp 98.2; Pulse Ox 100% on R/A; Weight 81.65 kg; iw Height 6 ft. 1 in. (185.42 cm); Pain 9/10; 10:06 BP 128 / 85; Pulse 70; Resp 16; Pulse Ox 100% on R/A; em 08:43 Body Mass Index 23.75 (81.65 kg, 185.42 cm) iw ED Course: 08:28 Patient arrived in ED. rg4 08:41 Jeferson Lund MD is Attending Physician. rn 08:43 Triage completed. iw 08:43 Arm band placed on. iw 08:54 EKG done, by air conditioning technician. reviewed by Jeferson Lund MD. tc 09:03 Initial lab(s) drawn, by me, sent to lab. Inserted saline lock: 20 gauge in left dh3 antecubital area, using aseptic technique. Blood collected. 09:04 Juvenal Luu LVN is Primary Nurse. em 09:06 CT Stone Protocol In Process Unspecified. EDMS 09:06 CT completed. Patient tolerated procedure well. Patient moved to [place] via wheelchair. sj Patient moved back from [place]. 09:08 Patient has correct armband on for positive identification. Pulse ox on. NIBP on. em 09:08 No provider procedures requiring assistance completed. Urine collected: clean catch em specimen, clear. Patient maintains SpO2 saturation greater than 95% on room air. 10:05 IV discontinued, intact, bleeding controlled, No redness/swelling at site. Pressure em dressing applied. Administered Medications: No medications were administered Outcome: 09:37 Discharge ordered by . rn 10:05 Discharged to home ambulatory, with family. em 10:05 Condition: good 10:05 Discharge instructions given to patient, family, Instructed on discharge instructions, follow up and referral plans. Demonstrated understanding of instructions, follow-up care. 10:10 Patient left the ED. iw Signatures: Dispatcher [employer] Molly Gamino Edgar, TRACK FITTER TRACK FITTER em Rosey Alcantara RN RN iw Jeferson Lund MD MD rn Callis, Tiffany, envelope stamping machine operator EKG Lotus Degroot rg4 Corrine Johnson 3
--- NOTE | 2018-01-25 09:37 | EDPHYS ---
Physician Documentation [facility] Name: Juan Campos Age: 42 yrs Sex: Male : 1975 Arrival Date: 01/25/2018 Time: 08:28 Bed 14 Private MD: ED Physician Jeferson Lund HPI: 01/25 08:57 This 42 yrs old Male presents to ER via Wheelchair with complaints of flank rn pain, pain with urination. 08:57 The patient complains of pain in the low back area. The pain radiates to the abdomen. rn Onset: The symptoms/episode began/occurred 1 week(s) ago. Modifying factors: The symptoms are alleviated by nothing. the symptoms are aggravated by nothing. Severity of pain: At its worst the pain was moderate in the emergency department the pain is unchanged. The patient has not experienced similar symptoms in the past. Reports bilateral flank/lower back pain, radiates to lower abdomen, assoc with burning with urination and increased frequency, here multiple visits recently, states was ignored, feels like something is wrong and would like evaluation.. Historical: - Allergies: 08:43 NKA; iw - PMHx: 08:43 Anxiety; Bipolar disorder; iw - PSHx: 08:43 Hernia repair; iw - Immunization history:: Adult Immunizations not up to date. - Social history:: Smoking status: Patient/guardian denies using tobacco. - Ebola Screening: : Patient negative for fever greater than or equal to 101.5 degrees Fahrenheit, and additional compatible Ebola Virus Disease symptoms Patient denies exposure to infectious person Patient denies travel to an Ebola-affected area in the 21 days before illness onset No symptoms or risks identified at this time. - Family history:: not pertinent. - Hospitalizations: : No recent hospitalization is reported. ROS: 08:57 Constitutional: Negative for fever, chills, and weight loss, Eyes: Negative for injury, rn pain, redness, and discharge, Neck: Negative for injury, pain, and swelling, Cardiovascular: Negative for palpitations, and edema, Respiratory: Negative for cough, wheezing, and pleuritic chest pain, Abdomen/GI: Negative for diarrhea, and constipation, Back: Negative for pain, MS/Extremity: Negative for injury and deformity, Skin: Negative for injury, rash, and discoloration, Neuro: Negative for headache, weakness, numbness, tingling, and seizure. 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 Eyes: Pupils equal round and reactive to light, extra-ocular motions intact. Lids and lashes normal. Conjunctiva and sclera are non-icteric and not injected. Cornea within normal limits. Periorbital areas with no swelling, redness, or edema. Cardiovascular: Regular rate and rhythm with a normal S1 and S2. No gallops, murmurs, or rubs. Normal PMI, no JVD. No pulse deficits. Respiratory: Lungs have equal breath sounds bilaterally, clear to auscultation and percussion. No rales, rhonchi or wheezes noted. No increased work of breathing, no retractions or nasal flaring. Abdomen/GI: Soft, non-tender, with normal bowel sounds. No distension or tympany. No guarding or rebound. No evidence of tenderness throughout. Back: No spinal tenderness. No costovertebral tenderness. Full range of motion. MS/ Extremity: Pulses equal, no cyanosis. Neurovascular intact. Full, normal range of motion. Equal circumference. Neuro: Awake and alert, GCS 15, oriented to person, place, time, and situation. Cranial nerves II-XII grossly intact. Motor strength 5/5 in all extremities. Sensory grossly intact. Cerebellar exam normal. Normal gait. 09:21 ECG was reviewed by the Attending Physician. rn Vital Signs: 08:43 BP 132 / 90; Pulse 82; Resp 16; Temp 98.2; Pulse Ox 100% on R/A; Weight 81.65 kg; iw Height 6 ft. 1 in. (185.42 cm); Pain 9/10; 10:06 BP 128 / 85; Pulse 70; Resp 16; Pulse Ox 100% on R/A; em 08:43 Body Mass Index 23.75 (81.65 kg, 185.42 cm) iw MDM: 08:42 Patient medically screened. rn 09:36 Differential diagnosis: nephrolithiasis, UTI, diverticulitis. Data reviewed: vital rn signs, nurses notes, lab test result(s), radiologic studies, CT scan, and as a result, I will discharge patient. Counseling: I had a detailed discussion with the patient and/or guardian regarding: the historical points, exam findings, and any diagnostic results supporting the discharge/admit diagnosis, lab results, radiology results, the need for outpatient follow up, to return to the emergency department if symptoms worsen or persist or if there are any questions or concerns that arise at home. Special discussion: I discussed with the patient/guardian in detail that at this point there is no indication for admission to the hospital. It is understood, however, that if the symptoms persist or worsen the patient needs to return immediately for re-evaluation. 01/25 08:49 Order name: Basic Metabolic Panel; Complete Time: 09:36 rn 01/25 08:49 Order name: CBC with Diff; Complete Time: 09:32 rn 01/25 08:49 Order name: Urine Microscopic Only; Complete Time: :23 rn 01/25 08:49 Order name: CT Stone Protocol; Complete Time: 09:23 rn 01/25 08:49 Order name: EKG; Complete Time: 08:49 rn 01/25 08:55 Order name: Urine Dipstick--Ancillary (enter results); Complete Time: :23 bd 01/25 08:49 Order name: IV Saline Lock; Complete Time: 09:08 rn 01/25 08:49 Order name: Labs collected and sent; Complete Time: 09:08 rn 01/25 08:49 Order name: Urine Dipstick-Ancillary (obtain specimen); Complete Time: 09:08 rn 01/25 08:49 Order name: EKG - Nurse/Tech; Complete Time: 09:08 rn EC:21 Rate is 82 beats/min. Rhythm is regular. QRS [place] is Normal. FL interval is normal. QRS rn interval is normal. QT interval is normal. No Q waves. T waves are Normal. No ST changes noted. Clinical impression: Normal ECG. Interpreted by me. Administered Medications: No medications were administered Disposition: 01/25/18 09:37 Discharged to Home. Impression: Dysuria, Unspecified abdominal pain. - Condition is Stable. - Discharge Instructions: Abdominal Pain, Adult, Dysuria, Flank Pain, Adult, Pain Without a Known Cause. - Work release form, Medication Reconciliation Form, Thank You Letter, Antibiotic Education, Prescription Opioid Use form. - Follow up: Private Physician; When: As needed; Reason: Recheck today's complaints, Re-evaluation by your physician. - Problem is an ongoing problem. - Symptoms have improved. Signatures: Dispatcher [employer] Rosey Bal RN RN iw Nieto, Roman, MD MD furnace liner: (The following items were deleted from the chart) 10:10 09:37 01/25/2018 09:37 Discharged to Home. Impression: Dysuria; Unspecified abdominal iw pain. Condition is Stable. Forms are Medication Reconciliation Form, Thank You Letter, Antibiotic Education, Prescription Opioid Use. Follow up: Private Physician; When: As needed; Reason: Recheck today's complaints, Re-evaluation by your physician. Problem is an ongoing problem. Symptoms have improved. rn
--- NOTE | 2018-01-26 09:33 | EKG ---
Test Date: 2018-01-25 Test Time: 08:44:10 Cover Creaser: PRIYANKA MEASUREMENT RESULTS: Intervals: Rate: 82 WI: 136 QRSD: 104 QT: 368 QTc: 429 [place]: P: 67 WI: 136 QRS: 75 T: 62 INTERPRETIVE STATEMENTS: Normal sinus rhythm Normal ECG Compared to ECG 12/30/2014 08:22:35 No significant changes Electronically Signed On 01-26-18 09:32:28 CDT by Jim Delgadillo
== END 2018-01-25 10:10 | disposition home or self-care (01) ==
LOC: ER 08:26
DX: R10.9 Unspecified abdominal pain (principal)
CPT/HCPCS: 36415; 74176; 76377; 80048; 81003; 81015; 85025; 93005; 99285

== ENCOUNTER 2018-02-01 03:50 | Emergency (ER) | payer MEDICAID ==
--- NOTE | 2018-02-01 04:21 | ER ---
Nurse's Notes [facility] Name: Juan Campos Age: 42 yrs Sex: Male : 1975 Arrival Date: 02/01/2018 Time: 03:54 Bed 17 Private MD: Diagnosis: adverse reaction to medication Presentation: 02/01 03:57 Presenting complaint: Patient states: I took my medications and now I feel dizzy and I jb4 am having kidney pain. Transition of care: patient was not received from another setting of care. Onset of symptoms was February 01, 2018. Risk Assessment: Do you want to hurt yourself or someone else? Patient reports no desire to harm self or others. Initial Sepsis Screen: Does the patient meet any 2 criteria? No. Patient's initial sepsis screen is negative. Does the patient have a suspected source of infection? No. Patient's initial sepsis screen is negative. Care prior to arrival: None. 03:57 Method Of Arrival: EMS: [facility] 4 03:57 Acuity: [place] 4 jb4 Triage Assessment: 04:00 General: Appears in no apparent distress. uncomfortable, Behavior is calm, cooperative, jb4 appropriate for age. Pain: Complains of pain in low back area Pain does not radiate. Pain currently is 7 out of 10 on a pain scale. at worst was 7 out of 10 on a pain scale. Historical: - Allergies: 04:00 NKA; jb4 - Home Meds: 04:00 meloxicam 15 mg oral tab 1 tab once daily [Active]; levofloxacin 750 mg Oral tab 1 tab jb4 once daily [Active]; - PMHx: 04:00 Anxiety; Bipolar disorder; jb4 - PSHx: 04:00 Hernia repair; jb4 - Immunization history:: Adult Immunizations unknown. - Social history:: Smoking status: Patient/guardian denies using tobacco, never smoked. - Ebola Screening: : No symptoms or risks identified at this time. Screenin:10 Abuse screen: Denies threats or abuse. Denies injuries from another. Nutritional bp screening: No deficits noted. Tuberculosis screening: No symptoms or risk factors identified. Fall Risk None identified. Assessment: 04:09 General: Appears in no apparent distress. comfortable, Behavior is cooperative, bp appropriate for age, anxious. Pain: Complains of pain in low back area. Neuro: Level of Consciousness is awake, alert, obeys commands, Oriented to person, place, time, situation, Appropriate for age. Cardiovascular: No deficits noted. Respiratory: Airway is patent Respiratory effort is even, unlabored, Respiratory pattern is regular, symmetrical. GI: No signs and/or symptoms were reported involving the gastrointestinal system. : No signs and/or symptoms were reported regarding the genitourinary system. EENT: No deficits noted. Derm: No deficits noted. Musculoskeletal: Circulation, motion, and sensation intact. Range of motion: intact in all extremities. 04:31 Reassessment: PT D/C HOME AMBULATORY WITH FAMILY, DX WITH ADVERSE MEDICINE REACTION. bp Vital Signs: 04:00 BP 124 / 91; Pulse 77; Resp 18; Pulse Ox 100% on R/A; Pain 7/10; jb4 ED Course: 03:54 Patient arrived in ED. jb4 03:58 Triage completed. jb4 04:00 Arm band placed on left wrist. jb4 04:02 Ilan Worthington, RN is Primary Nurse. bp 04:06 Prakash Villasenor MD is Attending Physician. tw4 04:10 Patient has correct armband on for positive identification. Bed in low position. Call bp light in reach. Side rails up X2. 04:32 No provider procedures requiring assistance completed. Patient did not have IV access bp during this emergency room visit. Administered Medications: No medications were administered Outcome: 04:21 Discharge ordered by . tw4 04:32 Discharged to home ambulatory, with family. bp 04:32 Condition: stable 04:32 Discharge instructions given to patient, Instructed on discharge instructions, follow up and referral plans. medication usage, Demonstrated understanding of instructions, follow-up care, medications, Prescriptions given X 1. 04:33 Patient left the ED. bp Signatures: Alfredo Armas, RN DRAKE jb4 Ilan Worthington, RN RN Prakash Leavitt MD MD tw4
--- NOTE | 2018-02-02 04:33 | EDPHYS ---
Physician Documentation [facility] Name: Juan Campos Age: 42 yrs Sex: Male : 1975 Arrival Date: 02/01/2018 Time: 03:54 Bed 17 Private MD: ED Physician Prakash Villasenor HPI: 02/01 06:50 This 42 yrs old Male presents to ER via EMS with complaints of dizziness tw4 after taking meloxicam. 06:50 The patient presents with lightheadedness. Onset: The symptoms/episode began/occurred tw4 just prior to arrival, today. Context: occurred at home. Modifying factors: The symptoms are alleviated by nothing, the symptoms are aggravated by nothing. Associated signs and symptoms: The patient has no apparent associated signs or symptoms. Severity of symptoms: At their worst the symptoms were mild in the emergency department the symptoms have improved. Patient's baseline: Neuro: alert and fully oriented, Motor: no deficits, Ambulation: walks without assistance. The patient has not experienced similar symptoms in the past. Historical: - Allergies: 04:00 NKA; jb4 - Home Meds: 04:00 meloxicam 15 mg oral tab 1 tab once daily [Active]; levofloxacin 750 mg Oral tab 1 tab jb4 once daily [Active]; - PMHx: 04:00 Anxiety; Bipolar disorder; jb4 - PSHx: 04:00 Hernia repair; jb4 - Immunization history:: Adult Immunizations unknown. - Social history:: Smoking status: Patient/guardian denies using tobacco, never smoked. - Ebola Screening: : No symptoms or risks identified at this time. ROS: 06:50 Constitutional: Negative for fever, chills, and weight loss, Eyes: Negative for injury, tw4 pain, redness, and discharge, Cardiovascular: Negative for chest pain, palpitations, and edema, Respiratory: Negative for shortness of breath, cough, wheezing, and pleuritic chest pain, Abdomen/GI: Negative for abdominal pain, nausea, vomiting, diarrhea, and constipation, Back: Negative for injury and pain, MS/Extremity: Negative for injury and deformity. 06:50 Neuro: Positive for dizziness, Negative for altered mental status, gait disturbance, headache, hearing loss, loss of consciousness, numbness, seizure activity, tinnitus. Exam: 06:50 Constitutional: This is a well developed, well nourished patient who is awake, alert, tw4 and in no acute distress. Head/Face: Normocephalic, atraumatic. Chest/axilla: Normal chest wall appearance and motion. Nontender with no deformity. No lesions are appreciated. Cardiovascular: Regular rate and rhythm with a normal S1 and S2. No gallops, murmurs, or rubs. Normal PMI, no JVD. No pulse deficits. Respiratory: Lungs have equal breath sounds bilaterally, clear to auscultation and percussion. No rales, rhonchi or wheezes noted. No increased work of breathing, no retractions or nasal flaring. Abdomen/GI: Soft, non-tender, with normal bowel sounds. No distension or tympany. No guarding or rebound. No evidence of tenderness throughout. Back: No spinal tenderness. No costovertebral tenderness. Full range of motion. Skin: Warm, dry with normal turgor. Normal color with no rashes, no lesions, and no evidence of cellulitis. MS/ Extremity: Pulses equal, no cyanosis. Neurovascular intact. Full, normal range of motion. Neuro: Awake and alert, GCS 15, oriented to person, place, time, and situation. Cranial nerves II-XII grossly intact. Motor strength 5/5 in all extremities. Sensory grossly intact. Cerebellar exam normal. Normal gait. Vital Signs: 04:00 BP 124 / 91; Pulse 77; Resp 18; Pulse Ox 100% on R/A; Pain 7/10; jb4 MDM: 04:06 Patient medically screened. tw4 06:50 Differential diagnosis: idiopathic dizziness, vertigo. Data reviewed: vital signs, tw4 nurses notes. Counseling: I had a detailed discussion with the patient and/or guardian regarding: the historical points, exam findings, and any diagnostic results supporting the discharge/admit diagnosis. Special discussion: I discussed with the patient/guardian in detail that at this point there is no indication for admission to the hospital. It is understood, however, that if the symptoms persist or worsen the patient needs to return immediately for re-evaluation. Administered Medications: No medications were administered Disposition: 02/02 01:00 Chart complete. tw4 Disposition: 02/01/18 04:21 Discharged to Home. Impression: adverse reaction to medication. - Condition is Stable. - Discharge Instructions: Dizziness, [id number]. - Prescriptions for Tramadol 50 mg Oral Tablet - take 1 tablet by ORAL route every 8 hours as needed; 12 tablet. - Medication Reconciliation Form, Thank You Letter, Antibiotic Education, Prescription Opioid Use form. - Follow up: Private Physician; When: Upon discharge from the Emergency Department; Reason: Further diagnostic work-up, Recheck today's complaints, Continuance of care. - Problem is new. - Symptoms have improved. Signatures: Alfredo Armas RN RN jb4 Ilan Worthington RN RN bp Prakash Villasenor MD MD tw4 Corrections: (The following items were deleted from the chart) 02/01 04:33 04:21 02/01/2018 04:21 Discharged to Home. Impression: adverse reaction to medication. bp Condition is Stable. Forms are Medication Reconciliation Form, Thank You Letter, Antibiotic Education, Prescription Opioid Use. Follow up: Private Physician; When: Upon discharge from the Emergency Department; Reason: Further diagnostic work-up, Recheck today's complaints, Continuance of care. Problem is new. Symptoms have improved. tw4
== END 2018-02-01 04:33 | disposition home or self-care (01) ==
LOC: ER 03:50
DX: T39.395A Adverse effect of other nonsteroidal anti-inflammatory drugs [NSAID], initial encounter (principal); Y92.9 Unspecified place or not applicable
CPT/HCPCS: 99283

== ENCOUNTER 2018-02-16 10:24 | Emergency (ER) | payer MEDICAID ==
[2018-02-16 11:42] LABS: Absolute Lymphocytes (CBC) 2.2 K/uL (0.7-4.9); Absolute Monocytes 0.4 K/uL (0.1-1.3); Absolute Neutrophil 4.2 K/uL (1.8-8.0); Basophils % 0.3 % (0-1.3); Eosinophils % 3.4 % (0-4.4); Hematocrit 46.3 % (39.6-49.0); Lymphocytes % 31.4 % (15.3-44.8); MCH 30.7 pg (27.0-35.0); MCV 87.5 fL (80-100); MPV 9.7 fL (7.6-11.3); Monocytes % 5.7 % (3.3-12.3); RBC Red Blood Cell Count 5.29 M/uL (4.33-5.43)
[2018-02-16 12:00] LABS: Urine Blood NEGATIVE (NEG); Urine Glucose NEGATIVE (NEG); Urine Protein NEGATIVE (NEG); Urine Specific Gravity 1.015 (1.005-1.030); Urine pH 7.5 (5.0-7.0)
[2018-02-16 12:01] LABS: Albumin 4.6 g/dL (3.4-5.0); Bilirubin Direct 0.2 mg/dL (0-0.2); Bilirubin Total 0.6 mg/dL (0.2-1.0); Potassium 3.6 mmol/L (3.5-5.1); Protein, Total 8.5 g/dL (6.4-8.2)
--- NOTE | 2018-02-16 12:24 | RAD REPORT ---
EXAM DESCRIPTION: CT - Stone Protocol - 02/16/2018 12:10 pm CLINICAL HISTORY: Abdominal pain. Bilateral flank pain COMPARISON: January 2018 TECHNIQUE: Computed axial tomography of the abdomen pelvis was obtained without oral or IV contrast. Lack of IV and oral contrast limits evaluation of solid organs, bowel, and vessels. Coronal reformat malorie images were obtained and reviewed. All CT scans are performed using dose optimization technique as appropriate and may include automated exposure control or mA/KV adjustment according to patient size. FINDINGS: A renal calculus is not seen. An ureteral calculus is not noted. A bladder calculus is not present. A 22 millimeter cyst is suspected within the liver. Spleen, pancreas and adrenals appear grossly normal There is no evidence of diverticulitis. An appendicolith is present. The appendix is borderline thick ened. No stranding is seen within the adjacent fat IMPRESSION: Negative for a genitourinary calculus Appendicolith. The appendix is borderline thickened. This probably does not represent appendicitis as no stranding is seen within the adjacent fat. No fluid is visualized within the appendiceal lumen. I f the patient has clinical symptoms to suggest appendicitis then a CT scan with oral contrast in an a ttempt to opacify the appendix would be helpful.
--- NOTE | 2018-02-16 16:32 | RAD REPORT ---
EXAM DESCRIPTION: CT - Abdomen Pelvis W Contrast - 02/16/2018 4:09 pm CLINICAL HISTORY: Abdominal pain. COMPARISON: None. TECHNIQUE: Computed axial tomography of the abdomen and pelvis was obtained. 100 cc Isovue-300 is ad ministered intravenously. Oral contrast was given. All CT scans are performed using dose optimization technique as appropriate and may include automated exposure control or mA/KV adjustment according to patient size. FINDINGS: The hepatic cysts are present. A 22 millimeter splenic cyst is suspected The Pancreas, adrenals and kidneys appear unremarkable. The appendix is unchanged in appearance when compared to a CT earlier in the same day. An appendicoli th is noted. No stranding within the adjacent fat is seen. Contrast it does not enter the appendix. There is no evidence of diverticulitis IMPRESSION: Appendicolith. Borderline dilatation of the appendix. Most likely this is a normal findi ng for this patient Hepatic cysts
--- NOTE | 2018-02-16 17:07 | ER ---
Nurse's Notes [facility] Name: Juan Campos Age: 42 yrs Sex: Male : 1975 Arrival Date: 02/16/2018 Time: 10:25 Bed 25 Private MD: Diagnosis: Generalized abdominal pain Presentation: 02/16 10:48 Presenting complaint: Patient states: Marky flank pain x 2-3 days, worse today, denies ph urinary symptoms, denies N/V/D. Transition of care: patient was not received from another setting of care. Onset of symptoms was February 16, 2018. Risk Assessment: Do you want to hurt yourself or someone else? Patient reports no desire to harm self or others. Initial Sepsis Screen: Does the patient meet any 2 criteria? No. Patient's initial sepsis screen is negative. Does the patient have a suspected source of infection? No. Patient's initial sepsis screen is negative. Care prior to arrival: None. 10:48 Method Of Arrival: Ambulatory 10:48 Acuity: [place] 3 ph Historical: - Allergies: 10:49 NKA; ph - PMHx: 10:49 Anxiety; Bipolar disorder; ph - PSHx: 10:49 Hernia repair; ph - Immunization history:: Adult Immunizations unknown. - Social history:: Smoking status: Patient/guardian denies using tobacco. - Ebola Screening: : No symptoms or risks identified at this time. Screenin:24 Abuse screen: Denies threats or abuse. Denies injuries from another. Nutritional jl7 screening: No deficits noted. Tuberculosis screening: No symptoms or risk factors identified. Fall Risk IV access (20 points). Total Matson Fall Scale indicates No Risk (0-24 pts). Assessment: 11:10 General: Appears in no apparent distress. uncomfortable, Behavior is cooperative, jl7 anxious. Pain: Complains of pain in left low back and right low back Pain radiates to right lower quadrant and left lower quadrant Pain currently is 7 out of 10 on a pain scale. at worst was 8 out of 10 on a pain scale. Quality of pain is described as sharp, Pain began a month ago Is intermittent. Neuro: Level of Consciousness is awake, alert, obeys commands, Oriented to person, place, time, situation. Cardiovascular: Patient's skin is warm and dry. Respiratory: Airway is patent Respiratory effort is even, unlabored, Respiratory pattern is regular, symmetrical. GI: Abdomen is flat, non-distended, Bowel sounds present X 4 quads. : Reports urinary frequency. EENT: No signs and/or symptoms were reported regarding the EENT system. Derm: Skin is pink, warm \T\ dry. Musculoskeletal: No signs and/or symptoms reported regarding the musculoskeletal system. 13:00 Reassessment: Patient appears in no apparent distress at this time. Patient and/or kr2 family updated on plan of care and expected duration. Pain level reassessed. Patient is alert, oriented x 3, equal unlabored respirations, skin warm/dry/pink. 14:00 Reassessment: Patient appears in no apparent distress at this time. Patient and/or kr2 family updated on plan of care and expected duration. Pain level reassessed. Patient is alert, oriented x 3, equal unlabored respirations, skin warm/dry/pink. 15:00 Reassessment: Patient appears in no apparent distress at this time. Patient and/or kr2 family updated on plan of care and expected duration. Pain level reassessed. Patient is alert, oriented x 3, equal unlabored respirations, skin warm/dry/pink. Patient up to restroom. 15:51 Reassessment: Patient appears in no apparent distress at this time. Patient and/or kr2 family updated on plan of care and expected duration. Pain level reassessed. Patient is alert, oriented x 3, equal unlabored respirations, skin warm/dry/pink. 17:00 Reassessment: Patient appears in no apparent distress at this time. Patient and/or kr2 family updated on plan of care and expected duration. Pain level reassessed. Patient is alert, oriented x 3, equal unlabored respirations, skin warm/dry/pink. Patient states symptoms have improved. 17:48 Reassessment: Patient appears in no apparent distress at this time. Patient and/or kr2 family updated on plan of care and expected duration. Pain level reassessed. Patient is alert, oriented x 3, equal unlabored respirations, skin warm/dry/pink. Vital Signs: 10:49 BP 128 / 84; Pulse 77; Resp 18; Temp 97.8; Pulse Ox 100% on R/A; Weight 82.55 kg; ph Height 6 ft. 0 in. (182.88 cm); Pain 7/10; 11:24 BP 132 / 96; Pulse 70; Resp 16 S; Pulse Ox 100% on R/A; jl7 12:36 BP 118 / 86; Pulse 65; Resp 16 S; Pulse Ox 100% on R/A; jl7 13:00 BP 129 / 66 RA (auto/reg); Pulse 58; Pulse Ox 100% on R/A; jp3 14:24 BP 126 / 101 RA Supine (auto/reg); Pulse 66; Resp 19; Pulse Ox 100% on R/A; jp3 15:52 BP 124 / 82; Pulse 62; Resp 17; Pulse Ox 100% ; kr2 17:49 BP 126 / 70; Pulse 64; Resp 18; Pulse Ox 99% on R/A; kr2 10:49 Body Mass Index 24.68 (82.55 kg, 182.88 cm) ph ED Course: 10:25 Patient arrived in ED. sb2 10:49 Triage completed. ph 10:49 Arm band placed on. ph 11:08 Katherin Garcia FNP-C is PHCP. kb 11:08 Jeferson Lund MD is Attending Physician. kb 11:09 PHCP role handed off by Katherin Garcia FNP-C cp 11:09 Bhavesh Silva PA is PHCP. cp 11:12 Katherin Garcia FNP-C is PHCP. kb 11:12 Jeferson Lund MD is Attending Physician. kb 11:12 Ray Wayne, DRAKE is Primary Nurse. jl7 11:24 Patient has correct armband on for positive identification. Placed in gown. Bed in low jl7 position. Call light in reach. Side rails up X 1. Pulse ox on. NIBP on. Warm blanket given. 11:24 Initial lab(s) drawn, by ED staff, sent to lab. Inserted saline lock: 20 gauge in left jl7 antecubital area, using aseptic technique. Blood collected. 11:33 Urine collected: clean catch specimen, clear, maninder colored, Amount Voided: 100mL. jp3 11:34 Amylase, Serum Sent. jp3 11:34 Basic Metabolic Panel Sent. jp3 11:34 CBC with Diff Sent. jp3 11:34 Hepatic Function Sent. jp3 11:34 Lipase Sent. jp3 12:06 CT completed. Patient tolerated procedure well. Patient moved to CT via wheelchair. jg6 Patient moved back from CT. 12:10 CT Stone Protocol In Process Unspecified. EDMS 12:44 CT completed. Patient tolerated procedure well. Patient moved to CT via wheelchair. sj Patient moved back from CT. 12:48 CT Abd/Pelvis - W/Contrast In Process Unspecified. EDMS 13:30 Lights dimmed. Pillow given. jp3 17:50 No provider procedures requiring assistance completed. IV discontinued, intact, kr2 bleeding controlled, No redness/swelling at site. Pressure dressing applied. Administered Medications: No medications were administered Outcome: 17:07 Discharge ordered by MD. kb 17:51 Discharged to home ambulatory, with family. kr2 17:51 Condition: good 17:51 Discharge instructions given to patient, family, Instructed on discharge instructions, follow up and referral plans. Demonstrated understanding of instructions, follow-up care. 17:51 Patient left the ED. kr2 Signatures: Dispatcher [employer] EDNJ Katherin Garcia, [employer]-Molly Martinez Patricia, RN RN ph Shira, Bhavesh, PA PA Ray Call, RN RN jl7 Herminia Rivas RN RN kr2 Su Walsh2 Zak Meyer jp3 Elena De La Cruz jg6
--- NOTE | 2018-02-16 17:08 | EDPHYS ---
Physician Documentation [facility] Name: Juan Campos Age: 42 yrs Sex: Male : 1975 Arrival Date: 02/16/2018 Time: 10:25 Bed 25 Private MD: ED Physician Jeferson Lund HPI: 02/16 16:00 This 42 yrs old Male presents to ER via Ambulatory with complaints of Flank kb Pain, Nausea. 16:00 The patient complains of pain in the left flank and right flank. The pain does not kb radiate. Onset: The symptoms/episode began/occurred 1 month(s) ago, and became worse today. Modifying factors: The symptoms are alleviated by nothing. the symptoms are aggravated by palpation/percussion. Associated signs and symptoms: The patient has no apparent associated signs or symptoms. Severity of pain: At its worst the pain was moderate in the emergency department the pain is unchanged. The patient has not experienced similar symptoms in the past. The patient has been recently seen at the [facility] Emergency Department. bilateral flank pain for a month that got worse and radiates to abd today. Historical: - Allergies: 10:49 NKA; ph - PMHx: 10:49 Anxiety; Bipolar disorder; ph - PSHx: 10:49 Hernia repair; ph - Immunization history:: Adult Immunizations unknown. - Social history:: Smoking status: Patient/guardian denies using tobacco. - Ebola Screening: : No symptoms or risks identified at this time. ROS: 16:00 Constitutional: Negative for fever, chills, and weight loss, Neck: Negative for injury, kb pain, and swelling, Cardiovascular: Negative for chest pain, palpitations, and edema, Respiratory: Negative for shortness of breath, cough, wheezing, and pleuritic chest pain, : Negative for injury, bleeding, discharge, and swelling, MS/Extremity: Negative for injury and deformity, Skin: Negative for injury, rash, and discoloration, Neuro: Negative for headache, weakness, numbness, tingling, and seizure. 16:00 Abdomen/GI: Positive for abdominal pain, Negative for nausea, vomiting, and diarrhea, constipation, abdominal cramps, abdominal distension, anorexia. 16:00 Back: Positive for flank pain, bilaterally, Negative for injury or acute deformity, decreased range of motion, pain at rest, pain with movement. Exam: 16:00 Constitutional: This is a well developed, well nourished patient who is awake, alert, kb and in no acute distress. Head/Face: Normocephalic, atraumatic. Chest/axilla: Normal chest wall appearance and motion. Nontender with no deformity. No lesions are appreciated. Cardiovascular: Regular rate and rhythm with a normal S1 and S2. No gallops, murmurs, or rubs. Normal PMI, no JVD. No pulse deficits. Respiratory: Lungs have equal breath sounds bilaterally, clear to auscultation and percussion. No rales, rhonchi or wheezes noted. No increased work of breathing, no retractions or nasal flaring. Skin: Warm, dry with normal turgor. Normal color with no rashes, no lesions, and no evidence of cellulitis. MS/ Extremity: Pulses equal, no cyanosis. Neurovascular intact. Full, normal range of motion. Neuro: Awake and alert, GCS 15, oriented to person, place, time, and situation. Cranial nerves II-XII grossly intact. Motor strength 5/5 in all extremities. Sensory grossly intact. Cerebellar exam normal. Normal gait. 16:00 Abdomen/GI: Inspection: abdomen appears normal, Bowel sounds: normal, in all quadrants, Palpation: soft, in all quadrants, mild abdominal tenderness, in the right lower quadrant. 16:00 Back: CVA tenderness, that is mild, is noted bilaterally. Vital Signs: 10:49 BP 128 / 84; Pulse 77; Resp 18; Temp 97.8; Pulse Ox 100% on R/A; Weight 82.55 kg; ph Height 6 ft. 0 in. (182.88 cm); Pain 7/10; 11:24 BP 132 / 96; Pulse 70; Resp 16 S; Pulse Ox 100% on R/A; jl7 12:36 BP 118 / 86; Pulse 65; Resp 16 S; Pulse Ox 100% on R/A; jl7 13:00 BP 129 / 66 RA (auto/reg); Pulse 58; Pulse Ox 100% on R/A; jp3 14:24 BP 126 / 101 RA Supine (auto/reg); Pulse 66; Resp 19; Pulse Ox 100% on R/A; jp3 15:52 BP 124 / 82; Pulse 62; Resp 17; Pulse Ox 100% ; kr2 17:49 BP 126 / 70; Pulse 64; Resp 18; Pulse Ox 99% on R/A; kr2 10:49 Body Mass Index 24.68 (82.55 kg, 182.88 cm) ph MDM: 11:08 Patient medically screened. kb 16:01 Data reviewed: vital signs, nurses notes. Data interpreted: Pulse oximetry: on room air kb is 100 %. Interpretation: normal. 17:04 Counseling: I had a detailed discussion with the patient and/or guardian regarding: the kb historical points, exam findings, and any diagnostic results supporting the discharge/admit diagnosis, lab results, radiology results, the need for outpatient follow up, a family practitioner, to return to the emergency department if symptoms worsen or persist or if there are any questions or concerns that arise at home. ED course: Pt has had this pain for 30 days, no fever, no wbc elevation. Ct stone showed questionable appendix findings so ct abd with contrast was completed to further evaluate appendix. Findings do not show concern for acute appendicitis. Will discharge home with instructions to return for worsening symptoms, fever, or other concerns. 02/16 11:12 Order name: Amylase, Serum; Complete Time: 12:02 kb 02/16 11:12 Order name: Basic Metabolic Panel; Complete Time: 12:02 kb 02/16 11:12 Order name: CBC with Diff; Complete Time: 11:55 kb 02/16 11:12 Order name: Hepatic Function; Complete Time: 12:02 kb 02/16 11:12 Order name: Lipase; Complete Time: 12:02 kb 02/16 11:35 Order name: Urine Dipstick--Ancillary (enter results); Complete Time: 12:01 eb 02/16 11:12 Order name: IV Saline Lock; Complete Time: 11:21 kb 02/16 11:12 Order name: Labs collected and sent; Complete Time: 11:21 kb 02/16 11:12 Order name: Urine Dipstick-Ancillary (obtain specimen); Complete Time: 11:22 kb 02/16 11:57 Order name: CT Stone Protocol; Complete Time: 12:25 kb 02/16 12:28 Order name: CT Abd/Pelvis - W/Contrast; Complete Time: 16:33 kb Administered Medications: No medications were administered Disposition: 17:54 Co-signature as Attending Physician, Jeferson Lund MD. rn Disposition: 02/16/18 17:07 Discharged to Home. Impression: Generalized abdominal pain. - Condition is Stable. - Discharge Instructions: Abdominal Pain, Adult, [id number], Flank Pain, [id number]. - Medication Reconciliation Form, Thank You Letter, Antibiotic Education, Prescription Opioid Use, Family Work Release form. - Follow up: Private Physician; When: 2 - 3 days; Reason: Recheck today's complaints, Continuance of care, Re-evaluation by your physician. Follow up: Emergency Department; When: As needed; Reason: Worsening of condition. Signatures: Dispatcher [employer] EDMS Katherin Garcia, [employer]STRU[employer]UTIONS ARCHITECT-C [employer] ARCHITECT-Ckb Jeferson Lund MD MD rn Hall, Patricia, RN RN Herminia Kruse RN RN kr2 Corrections: (The following items were deleted from the chart) 17:51 17:07 02/16/2018 17:07 Discharged to Home. Impression: Generalized abdominal pain. kr2 Condition is Stable. Forms are Medication Reconciliation Form, Thank You Letter, Antibiotic Education, Prescription Opioid Use. Follow up: Private Physician; When: 2 - 3 days; Reason: Recheck today's complaints, Continuance of care, Re-evaluation by your physician. Follow up: Emergency Department; When: As needed; Reason: Worsening of condition. kb
[2018-02-16] MEDS ORDERED: LIDOCAINE 1% W/EPI 1:100,000 MDV 50 ML VIAL ONE (18:07)
== END 2018-02-16 17:51 | disposition home or self-care (01) ==
LOC: ER 10:24
DX: R10.84 Generalized abdominal pain (principal)
CPT/HCPCS: 36415; 74176; 74177; 76377; 80048; 80076; 81003; 82150; 83690; 85025; 99284; Q9967

== ENCOUNTER 2018-03-04 04:49 | Observation (INO) | payer MEDICAID ==
[2018-03-04] MEDS ORDERED: NA CHLORIDE 0.9% 1,000 ML ONE (05:24)
[2018-03-04 05:29] LABS: Absolute Lymphocytes (CBC) 2.7 K/uL (0.7-4.9); Absolute Monocytes 0.5 K/uL (0.1-1.3); Absolute Neutrophil 4.1 K/uL (1.8-8.0); Basophils % 0.6 % (0-1.3); Eosinophils % 4.9 % (0-4.4); Hematocrit 39.7 % (39.6-49.0); MCH 30.8 pg (27.0-35.0); MCV 86.9 fL (80-100); MPV 9.6 fL (7.6-11.3); Monocytes % 5.9 % (3.3-12.3); RBC Red Blood Cell Count 4.57 M/uL (4.33-5.43)
[2018-03-04] MEDS ORDERED: FENTANYL CITR 100 MCG/2 ML ONE (05:36)
[2018-03-04] MEDS ORDERED: ONDANSETRON 4 MG/2 ML VIAL ONE (05:36)
[2018-03-04] MEDS ORDERED: FAMOTIDINE 20 MG/2 ML VIAL IV ONE (05:37)
[2018-03-04 05:48] LABS: Bilirubin Direct 0.2 mg/dL (0-0.2); Bilirubin Total 0.5 mg/dL (0.2-1.0); Potassium 3.7 mmol/L (3.5-5.1); Protein, Total 7.5 g/dL (6.4-8.2)
[2018-03-04 06:01] LABS: Protime INR 1.02
[2018-03-04 06:03] LABS: Magnesium 2.1 mg/dL (1.8-2.4); NT PRO-BNP 15 pg/mL (<125); Troponin (Emerg Dept Use Only) < 0.02 ng/mL (0.0-0.045)
--- NOTE | 2018-03-04 07:55 | EDPHYS ---
Physician Documentation [facility] Name: Juan Campos Age: 42 yrs Sex: Male : 1975 Arrival Date: 03/04/2018 Time: 04:50 Bed 6 Private MD: Chasity Og ED Physician Bhavesh Brown HPI: 03/04 05:23 This 42 yrs old Male presents to ER via Ambulatory with complaints of diane Abdominal Pain. 05:23 The patient or guardian reports chest pain that is located primarily in the epigastric diane area, anterior chest wall. Onset: just prior to arrival. The patient presents with abdominal pain in the upper abdomen, in the lower abdomen. Onset: The symptoms/episode began/occurred just prior to arrival, this morning. The pain does not radiate. The symptoms do not radiate. Associated signs and symptoms: Pertinent positives:. Modifying factors: The symptoms are alleviated by nothing, the symptoms are aggravated by nothing. Historical: - Allergies: 05:01 NKA; tl2 - PMHx: 05:01 Anxiety; Bipolar disorder; tl2 - PSHx: 05:01 None; tl2 - Immunization history:: Adult Immunizations up to date. - Social history:: Smoking status: Patient/guardian denies using tobacco. - Ebola Screening: : No symptoms or risks identified at this time. - Family history:: not pertinent. ROS: 05:23 Constitutional: Negative for fever, chills, and weight loss, Eyes: Negative for injury, diane pain, redness, and discharge, ENT: Negative for injury, pain, and discharge, Neck: Negative for injury, pain, and swelling, Respiratory: Negative for shortness of breath, cough, wheezing, and pleuritic chest pain, : Negative for injury, bleeding, discharge, and swelling, MS/Extremity: Negative for injury and deformity, Skin: Negative for injury, rash, and discoloration, Neuro: Negative for headache, weakness, numbness, tingling, and seizure, Psych: Negative for depression, anxiety, suicide ideation, homicidal ideation, and hallucinations, Allergy/Immunology: Negative for hives, rash, and allergies, Endocrine: Negative for neck swelling, polydipsia, polyuria, polyphagia, and marked weight changes, Hematologic/Lymphatic: Negative for swollen nodes, abnormal bleeding, and unusual bruising. 05:23 Cardiovascular: Positive for chest pain, of the chest. 05:23 Abdomen/GI: Positive for abdominal pain, of the right upper quadrant, left upper quadrant, right lower quadrant and left lower quadrant. Exam: 05:23 Constitutional: This is a well developed, well nourished patient who is awake, alert, diane and in no acute distress. Head/Face: Normocephalic, atraumatic. Eyes: Pupils equal round and reactive to light, extra-ocular motions intact. Lids and lashes normal. Conjunctiva and sclera are non-icteric and not injected. Cornea within normal limits. Periorbital areas with no swelling, redness, or edema. ENT: Nares patent. No nasal discharge, no septal abnormalities noted. Tympanic membranes are normal and external auditory canals are clear. Oropharynx with no redness, swelling, or masses, exudates, or evidence of obstruction, uvula midline. Mucous membranes moist. Neck: Trachea midline, no thyromegaly or masses palpated, and no cervical lymphadenopathy. Supple, full range of motion without nuchal rigidity, or vertebral point tenderness. No Meningismus. Chest/axilla: Normal chest wall appearance and motion. Nontender with no deformity. No lesions are appreciated. Cardiovascular: Regular rate and rhythm with a normal S1 and S2. No gallops, murmurs, or rubs. Normal PMI, no JVD. No pulse deficits. Respiratory: Lungs have equal breath sounds bilaterally, clear to auscultation and percussion. No rales, rhonchi or wheezes noted. No increased work of breathing, no retractions or nasal flaring. Abdomen/GI: Soft, non-tender, with normal bowel sounds. No distension or tympany. No guarding or rebound. No evidence of tenderness throughout. Back: No spinal tenderness. No costovertebral tenderness. Full range of motion. Skin: Warm, dry with normal turgor. Normal color with no rashes, no lesions, and no evidence of cellulitis. MS/ Extremity: Pulses equal, no cyanosis. Neurovascular intact. Full, normal range of motion. Neuro: Awake and alert, GCS 15, oriented to person, place, time, and situation. Cranial nerves II-XII grossly intact. Motor strength 5/5 in all extremities. Sensory grossly intact. Cerebellar exam normal. Normal gait. Psych: Awake, alert, with orientation to person, place and time. Behavior, mood, and affect are within normal limits. Vital Signs: 05:01 BP 122 / 92; Pulse 64; Resp 22; Temp 98.3(O); Pulse Ox 100% on R/A; Weight 83.46 kg; tl2 Height 6 ft. 0 in. (182.88 cm); Pain 8/10; 06:00 BP 122 / 92; Pulse 68; Resp 18; Pulse Ox 100% on R/A; tl2 08:27 BP 107 / 71; Pulse 84; Resp 16; Pulse Ox 100% on R/A; la1 05:01 Body Mass Index 24.95 (83.46 kg, 182.88 cm) tl2 MDM: 04:53 Patient medically screened. [facility] 05:26 Data reviewed: vital signs, nurses notes, lab test result(s), EKG, radiologic studies, [facility] CT scan, plain films. 03/04 05:12 Order name: Basic Metabolic Panel; Complete Time: 05:56 tl2 03/04 05:12 Order name: CBC with Diff; Complete Time: 05:56 2 03/04 05:12 Order name: Creatinine for Radiology; Complete Time: 05:56 2 03/04 05:12 Order name: Hepatic Function; Complete Time: 05:56 2 03/04 05:12 Order name: Lipase; Complete Time: 05:56 2 03/04 05:23 Order name: Magnesium; Complete Time: 06:17 [facility] 03/04 05:23 Order name: NT PRO-BNP; Complete Time: 06:17 [facility] 03/04 05:23 Order name: PT-INR; Complete Time: 06:17 [facility] 03/04 05:23 Order name: Troponin (emerg Dept Use Only); Complete Time: 06:17 [facility] 03/04 05:23 Order name: D-Dimer; Complete Time: 06:17 [facility] 03/04 07:59 Order name: Basic Metabolic Panel EDMS 03/04 07:59 Order name: Basic Metabolic Panel EDMS 03/04 07:59 Order name: CBC with Automated Diff EDMS 03/04 07:59 Order name: CBC with Automated Diff EDMS 03/04 05:12 Order name: IV Saline Lock; Complete Time: 05:17 tl2 03/04 05:23 Order name: XRAY Chest (1 view); Complete Time: 08:47 [facility] 03/04 05:23 Order name: EKG; Complete Time: 05:23 [facility] 03/04 05:23 Order name: CT Abd/Pelvis - W/Contrast; Complete Time: 08:47 [facility] 03/04 07:59 Order name: NPO [facility] 03/04 07:59 Order name: Lipase [facility] 03/04 08:00 Order name: Lipase [facility] 03/04 08:00 Order name: Liver (Hepatic) Function [facility] 03/04 08:00 Order name: Liver (Hepatic) Function [facility] 03/04 08:03 Order name: Urine Dipstick--Ancillary (enter results) 03/04 08:11 Order name: Urine Dipstick-Ancillary; Complete Time: 08:47 [facility] 03/04 05:12 Order name: Labs collected and sent; Complete Time: 05:17 [facility] 03/04 05:17 Order name: Urine Dipstick-Ancillary (obtain specimen); Complete Time: 05:17 [facility] 03/04 05:23 Order name: Cardiac monitoring; Complete Time: 05:27 [facility] 03/04 05:23 Order name: EKG - Nurse/Tech; Complete Time: 05:35 [facility] 03/04 05:23 Order name: O2 Per Protocol; Complete Time: 05:27 [facility] 03/04 05:23 Order name: O2 Sat Monitoring; Complete Time: 05:27 [facility] Administered Medications: 05:21 Drug: NS 0.9% 1000 ml Route: IV; Rate: 1 bolus; Site: right antecubital; tl2 08:28 Follow up: IV Status: Completed infusion la1 05:34 Drug: Zofran 4 mg Route: IVP; Site: right antecubital; tl2 06:26 Follow up: Response: No adverse reaction tl2 05:34 Drug: fentaNYL (PF) 25 mcg Route: IVP; Site: right antecubital; tl2 06:26 Follow up: Response: No adverse reaction; Pain is unchanged, physician notified tl2 05:34 Drug: Pepcid 20 mg Route: IVP; Site: right antecubital; tl2 06:26 Follow up: Response: No adverse reaction tl2 06:55 Drug: fentaNYL (PF) 25 mcg Route: IVP; Site: right antecubital; tl2 08:28 Follow up: Response: No adverse reaction; Pain is decreased la1 Disposition: 03/04/18 07:54 Hospitalization ordered by Savage Gee for Observation. Preliminary diagnosis is Abdominal tenderness. - Bed requested for Telemetry/MedSurg (observation). - Status is Observation. la1 - Condition is Stable. - Problem is new. - Symptoms have improved. UTI on Admission? No Signatures: Dispatcher [employer] EDMS Katherin Garcia, OLIVE GRADER-C OLIVE GRADER-Ckb Claudia Bynum, RN RN Bhavesh Rashid MD MD cha Attema, Lee RN RN la1 Myrna Hampton, RN RN tl2 Madeleine Villatoro Corrections: (The following items were deleted from the chart) 08:01 07:54 Hospitalization Ordered by Savage Gee MD for Observation. Preliminary diagnosis eb is Abdominal tenderness. Bed requested for Telemetry/MedSurg (observation). Status is Observation. Condition is Stable. Problem is new. Symptoms have improved. UTI on Admission? No. diane 08:24 08:01 03/04/2018 07:54 Hospitalization Ordered by Savage Gee MD for Observation. dw Preliminary diagnosis is Abdominal tenderness. Bed requested for Telemetry/MedSurg (observation). Status is Observation. Condition is Stable. Problem is new. Symptoms have improved. UTI on Admission? No. eb 08:50 08:24 03/04/2018 07:54 Hospitalization Ordered by Savage Gee MD for Observation. la1 Preliminary diagnosis is Abdominal tenderness. Bed requested for Telemetry/MedSurg (observation). Status is Observation. Condition is Stable. Problem is new. Symptoms have improved. UTI on Admission? No. dw
--- NOTE | 2018-03-04 07:55 | ER ---
Nurse's Notes [facility] Name: Juan Campos Age: 42 yrs Sex: Male : 1975 Arrival Date: 03/04/2018 Time: 04:50 Bed 6 Private MD: Chasity Og Diagnosis: Abdominal tenderness Presentation: 03/04 05:00 Presenting complaint: Patient states: Lower abdominal pain for 12 hours, nausea, denies tl2 vomiting or diarrhea. Pt very anxious in triage. Transition of care: patient was not received from another setting of care. Onset of symptoms was March 03, 2018 at 15:00. Risk Assessment: Do you want to hurt yourself or someone else? Patient reports no desire to harm self or others. Initial Sepsis Screen: Does the patient meet any 2 criteria? No. Patient's initial sepsis screen is negative. Does the patient have a suspected source of infection? No. Patient's initial sepsis screen is negative. Care prior to arrival: None. 05:00 Method Of Arrival: Ambulatory tl2 05:00 Acuity: [place] 4 tl2 Triage Assessment: 05:01 General: Appears in no apparent distress. uncomfortable, Behavior is cooperative, tl2 anxious. Pain: Complains of pain in right lower quadrant and left lower quadrant Pain does not radiate. Pain currently is 8 out of 10 on a pain scale. Quality of pain is described as pressure. Neuro: Level of Consciousness is awake, alert, obeys commands, Oriented to person, place, time, situation. Cardiovascular: Denies chest pain. Respiratory: Airway is patent Respiratory effort is even, unlabored, Respiratory pattern is regular, symmetrical. GI: Abdomen is non-distended, Bowel sounds hyperactive in right lower quadrant and left lower quadrant Abd is soft Abdomen is tender to palpation in right lower quadrant and left lower quadrant Reports lower abdominal pain, nausea, Patient currently denies diarrhea, vomiting. : No signs and/or symptoms were reported regarding the genitourinary system. Derm: Skin is pink, warm \T\ dry. Historical: - Allergies: 05:01 NKA; tl2 - PMHx: 05:01 Anxiety; Bipolar disorder; tl2 - PSHx: 05:01 None; tl2 - Immunization history:: Adult Immunizations up to date. - Social history:: Smoking status: Patient/guardian denies using tobacco. - Ebola Screening: : No symptoms or risks identified at this time. - Family history:: not pertinent. Screenin:03 Abuse screen: Denies threats or abuse. Nutritional screening: No deficits noted. tl2 Tuberculosis screening: No symptoms or risk factors identified. Fall Risk None identified. Assessment: 05:03 General: see triage assessment. tl2 06:00 Reassessment: Patient appears in no apparent distress at this time. Patient and/or tl2 family updated on plan of care and expected duration. Pain level reassessed. Patient is alert, oriented x 3, equal unlabored respirations, skin warm/dry/pink. 06:56 Reassessment: Patient appears in no apparent distress at this time. Pt returned from tl2 CT, awaiting results. 07:51 General: Appears in no apparent distress. Behavior is calm, cooperative. Neuro: Level la1 of Consciousness is awake, alert, obeys commands, Oriented to person, place, time, situation. Cardiovascular: Capillary refill < 3 seconds Patient's skin is warm and dry. Respiratory: Airway is patent Respiratory effort is even, unlabored, Respiratory pattern is regular, symmetrical. GI: No signs and/or symptoms were reported involving the gastrointestinal system. : No signs and/or symptoms were reported regarding the genitourinary system. Vital Signs: 05:01 BP 122 / 92; Pulse 64; Resp 22; Temp 98.3(O); Pulse Ox 100% on R/A; Weight 83.46 kg; tl2 Height 6 ft. 0 in. (182.88 cm); Pain 8/10; 06:00 BP 122 / 92; Pulse 68; Resp 18; Pulse Ox 100% on R/A; tl2 08:27 BP 107 / 71; Pulse 84; Resp 16; Pulse Ox 100% on R/A; la1 05:01 Body Mass Index 24.95 (83.46 kg, 182.88 cm) tl2 ED Course: 04:50 Patient arrived in ED. ds1 04:51 Chasity Og is Private Physician. ds1 04:53 Bhavesh Brown MD is Attending Physician. [facility] 05:00 Myrna Hampton RN is Primary Nurse. tl2 05:01 Triage completed. tl2 05:01 Arm band placed on right wrist. tl2 05:03 Patient has correct armband on for positive identification. Placed in gown. Bed in low tl2 position. Call light in reach. Side rails up X 1. Adult w/ patient. 05:20 Inserted saline lock: 22 gauge in right antecubital area, using aseptic technique. tl2 Blood collected. 06:04 X-ray completed. Portable x-ray completed in exam room. Patient tolerated procedure kw well. 06:05 XRAY Chest (1 view) In Process Unspecified. EDMS 06:48 CT Abd/Pelvis - W/Contrast In Process Unspecified. EDMS 07:53 Savage Gee MD is Hospitalizing Provider. [facility] 08:27 No provider procedures requiring assistance completed. Patient admitted, IV remains in la1 place. Administered Medications: 05:21 Drug: NS 0.9% 1000 ml Route: IV; Rate: 1 bolus; Site: right antecubital; tl2 08:28 Follow up: IV Status: Completed infusion la1 05:34 Drug: Zofran 4 mg Route: IVP; Site: right antecubital; tl2 06:26 Follow up: Response: No adverse reaction tl2 05:34 Drug: fentaNYL (PF) 25 mcg Route: IVP; Site: right antecubital; tl2 06:26 Follow up: Response: No adverse reaction; Pain is unchanged, physician notified tl2 05:34 Drug: Pepcid 20 mg Route: IVP; Site: right antecubital; tl2 06:26 Follow up: Response: No adverse reaction tl2 06:55 Drug: fentaNYL (PF) 25 mcg Route: IVP; Site: right antecubital; tl2 08:28 Follow up: Response: No adverse reaction; Pain is decreased la1 Outcome: 07:54 Decision to Hospitalize by Provider. diane 08:27 Admitted to Med/surg accompanied by tech, via wheelchair, with chart. la1 08:27 Condition: stable 08:27 Instructed on the need for admit. 08:50 Patient left the ED. la1 Signatures: Dispatcher [employer] EDBhavesh Miramontes MD MD cha San[place], Gricel ds1 Lisa Bullock Lee, RN RN la1 Myrna Hampton RN RN tl2 Corrections: (The following items were deleted from the chart) 05:35 05:01 GI: Abdomen is non-distended, Reports lower abdominal pain, nausea, Patient tl2 currently denies diarrhea, vomiting, tl2
[2018-03-04] MEDS ORDERED: MORPHINE 4 MG/ML SYR IV PRN (07:58)
[2018-03-04] MEDS ORDERED: ONDANSETRON 4 MG/2 ML VIAL IV PRN (07:58)
[2018-03-04 08:11] LABS: Urine Blood NEGATIVE (NEG); Urine Glucose NEGATIVE (NEG); Urine Protein NEGATIVE (NEG); Urine Specific Gravity 1.015 (1.005-1.030); Urine pH 7.5 (5.0-7.0)
--- NOTE | 2018-03-04 08:12 | RAD REPORT ---
EXAM DESCRIPTION: CT - Abdomen Pelvis W Contrast - 03/04/2018 6:47 am CLINICAL HISTORY: Lower abdominal pain, nausea, vomiting and diarrhea A preliminary report was provided at the time of the study and reviewed prior to final report. COMPARISON: CT study February 16 TECHNIQUE: Biphasic, helical CT imaging of the abdomen and pelvis was performed following 100 ml non -ionic IV contrast. Oral contrast was given. All CT scans are performed using dose optimization technique as appropriate and may include automated exposure control or mA/KV adjustment according to patient size. FINDINGS: No suspicious findings in the lung bases. The liver, spleen, and pancreas show no suspicious findings. Gallbladder and biliary tree are also wi thout suspicious finding. Patient has is stable subcapsular right lobe liver cyst. No hydronephrosis or obstructing calculus. No perinephric stranding is seen. Diminished attenuation i n the right kidney has improved between February 16 in the current examination. There is a cyst in t he medial left kidney. In the posterior mid left kidney a 16 mm area of diminished attenuation is not ed in the posterior cortex. This is similar to slightly smaller than on the prior study. Additional a reas of diminished attenuation in the left renal parenchyma have improved. No abscess. No urinary marium dder wall thickening or mass seen. Prostate gland and seminal vesicles within normal limits. No gastric dilatation or gastric wall thickening. No small bowel abnormality. No colon dilatation or colon abnormality. Appendix size is upper normal at 8 mm. No change in diameter of the appendix since February 16. The punctate hyperdensity presumed to be appendicolith on February 16 is no longer present. This is prob ably contrast or medication within the lumen of the appendix. Air is still seen within the lumen of [facility] appendix and there is no periappendiceal stranding. No evidence for a progressive process over e. A few small mesenteric lymph nodes are present. Minimal periaortic sub centimeter lymph nodes seen . No free air, free fluid or inflammatory stranding. No hernia, mass or bulky lymphadenopathy. No adre nal abnormality. No suspicious bony findings. IMPRESSION: The appendix is upper normal in size but has not changed since February 16. No periappe ndiceal inflammatory stranding. The presumed punctate phlebolith seen February 16 is no longer prese nt and was therefore contrast or medication mimicking an appendicolith. No progressive appendix or right lower quadrant process. Acute appendicitis is not suspected. Patient does have some remnant heterogeneity of the renal parenchyma on the left. A mild or remnant p yelonephritis is not excluded. Correlation is needed with any pyelonephritis clinical or laboratory f indings.
--- NOTE | 2018-03-04 08:32 | RAD REPORT ---
EXAM DESCRIPTION: RAD - Chest Single View - 03/04/2018 6:07 am CLINICAL HISTORY: Cough, dyspnea COMPARISON: December 30 TECHNIQUE: AP portable chest image was obtained 0554 hours . FINDINGS: Lungs are clear. Heart and vasculature are normal. No measurable pleural effusion and no p neumothorax. No gross bony abnormality seen. No acute aortic findings suspected. IMPRESSION: No acute cardiopulmonary process. No suspicious interval change.
--- NOTE | 2018-03-04 09:22 | EKG ---
Test Date: 2018-03-04 Test Time: 05:39:27 Lead Software Tester: SARA MEASUREMENT RESULTS: Intervals: Rate: 68 NJ: 150 QRSD: 102 QT: 396 QTc: 421 [place]: P: 48 NJ: 150 QRS: 16 T: 37 INTERPRETIVE STATEMENTS: Normal sinus rhythm Normal ECG Compared to ECG 01/25/2018 08:44:10 No significant changes Electronically Signed On 03-04-18 09:21:55 CDT by Julio Davison
[2018-03-04] MEDS: D5 0.45 NS 1,000 ML IV SCH ×4 (11:05→22:07)
[2018-03-04] MEDS ORDERED: INFLUENZA VACCINE (for 3y+) 0.5 ML DOSE IMVAC ONE (12:00)
[2018-03-04] MEDS: CIPROFLOXACIN 400mg IV 400 MG/200 ML BAG IV SCH ×2 (13:20→21:59)
[2018-03-04] MEDS: METRONIDAZOLE 500mg IVPB 500 MG/100 ML BAG IV SCH ×2 (13:20→16:54)
--- NOTE | 2018-03-04 16:50 | HP ---
Date of Admission: 03/04/2018 Chief Complaint: Abdominal pain. History Of Present Illness: The patient is a 42-year-old gentleman, who comes in with increasing low er abdominal pain below the umbilicus on both sides for about a week, progressively getting worse. A ssociated with nausea but no vomiting. No diarrhea or constipation, no blood in his stool, no hematu shelia, but he does have mild dysuria. No sore throat, runny nose, cough, headaches, or dizziness. Raul e chills, but no fevers and no chest pain. The patient had a similar episode about 2 weeks ago. He had a workup done consisting of a CAT scan, which showed some mild dilatation of the appendix, but wi th questionable appendicolith, but no stranding and air in the appendix. He was discharged. He did well up until the last week and then the symptoms return. He had some questionable inflammation of h is kidneys on the scan that was done today. The appendix, there is no change at all. There is no ap pendicolith. There is no inflammatory stranding. There is air within the lumen. The dilatation is upper limits of normal at 8 mm. However, the inflammation seen on the kidneys has improved on the ri ght side, but still present a little bit on the left side. Review of Systems: Otherwise unremarkable. Medical History: Bipolar disorder and anxiety. Past Surgical History: Negative. Allergies: NONE. Social History: He denies smoking, drinking, or doing recreational drugs. Family History: Noncontributory. Physical Examination: Vital Signs: Stable. He is currently afebrile. General: He is awake, alert, and oriented x3. Head and Neck: Cranial nerves 2 through 12 are grossly within normal limits. No neck masses. No JV D. Throat clear. Neck supple. Chest: Clear. Heart: S1, S2. Abdomen: Soft, nondistended. Positive bowel sounds. Mild left lower quadrant, right lower quadrant , and suprapubic tenderness. No rebound, rigidity, or guarding. Extremities: Adequately perfused. Nontender. Neuro: Nonfocal. There is no CVA tenderness. Laboratory Data: UA is negative. His chemistry is within normal limits. INR is normal. Laboratory Data: His white count is normal. There is no left shift. Assessment: A 42-year-old gentleman with lower abdominal pain. Etiology unclear. Possible subclini faina pyelonephritis. Based on the symptoms and the CT findings, I doubt that the patient has acute ap pendicitis. Recommendation: We will do serial abdominal exams. We will start him on Cipro and Flagyl prophylact ically for possible early pyelonephritis. The patient clinically does not have appendicitis at this time. We will evaluate the patient, and should he localizes tenderness on the right lower quadrant o r not improve with the antibiotics, he may benefit from a diagnostic laparoscopy. Plan of care discu ssed in detail with the patient. JIMI/PATRICK Voice ID: [id number]
[2018-03-04] MEDS: ACETAMINOPHEN 500 MG TAB PO PRN (21:59)
[2018-03-04] MEDS: QUETIAPINE 25 MG TAB PO SCH (22:00)
[2018-03-05] MEDS: METRONIDAZOLE 500mg IVPB 500 MG/100 ML BAG IV SCH ×3 (00:12→17:05)
[2018-03-05 05:57] LABS: Absolute Lymphocytes (CBC) 1.9 K/uL (0.7-4.9); Absolute Monocytes 0.4 K/uL (0.1-1.3); Absolute Neutrophil 3.5 K/uL (1.8-8.0); Basophils % 0.4 % (0-1.3); Eosinophils % 6.8 % (0-4.4); Hematocrit 38.5 % (39.6-49.0); Lymphocytes % 29.7 % (15.3-44.8); MCH 31.2 pg (27.0-35.0); MCV 87.2 fL (80-100); MPV 9.8 fL (7.6-11.3); Monocytes % 7.1 % (3.3-12.3); RBC Red Blood Cell Count 4.41 M/uL (4.33-5.43)
[2018-03-05 06:09] LABS: Albumin 3.4 g/dL (3.4-5.0); Bilirubin Direct 0.2 mg/dL (0-0.2); Bilirubin Total 0.8 mg/dL (0.2-1.0); Potassium 3.8 mmol/L (3.5-5.1); Protein, Total 6.3 g/dL (6.4-8.2)
[2018-03-05] MEDS: D5 0.45 NS 1,000 ML IV SCH ×3 (08:52→21:22)
[2018-03-05] MEDS: CIPROFLOXACIN 400mg IV 400 MG/200 ML BAG IV SCH ×2 (08:53→21:21)
--- NOTE | 2018-03-05 13:18 | PN ---
Date of Progress Note: 03/05/2018 Subjective: The patient is awake, alert. States that he feels better. No nausea, vomiting, tolerat ing clear liquids. Pain is still there a little bit in the lower abdomen, nonspecific. Vital signs stable, afebrile. White count is normal. Abdominal exam reveals minimal tenderness in the lower abd omen, both sides and no rebound, rigidity, or guarding. No peritonitis. Assessment: Abdominal pain. Etiology unclear. Recommendations: This patient is improving on IV antibiotics. We will keep him 1 more day on IV ant ibiotics and started him on regular diet and if he tolerates that and no complains overnight and will send him home on oral antibiotics tomorrow. I believe that he may have some subclinical pyelonephri tis or gastroenteritis. However, since he is improving, there is no need for surgical intervention a t this time. JIMI/PATRICK Voice ID: [id number] Report ID: [id number]
[2018-03-05] MEDS: ACETAMINOPHEN 500 MG TAB PO PRN (15:03)
[2018-03-05] MEDS: QUETIAPINE 25 MG TAB PO SCH (21:21)
[2018-03-06] MEDS: METRONIDAZOLE 500mg IVPB 500 MG/100 ML BAG IV SCH ×2 (00:02→08:55)
[2018-03-06 06:21] LABS: Absolute Monocytes 0.4 K/uL (0.1-1.3)
[2018-03-06] MEDS: ACETAMINOPHEN 500 MG TAB PO PRN (06:23)
[2018-03-06 06:31] LABS: Absolute Lymphocytes (CBC) 1.5 K/uL (0.7-4.9); Absolute Neutrophil 3.3 K/uL (1.8-8.0); Basophils % 0.4 % (0-1.3); Eosinophils % 6.3 % (0-4.4); Hematocrit 39.8 % (39.6-49.0); Lymphocytes % 26.4 % (15.3-44.8); MCH 30.3 pg (27.0-35.0); MCV 88.1 fL (80-100); MPV 9.8 fL (7.6-11.3); Monocytes % 7.7 % (3.3-12.3); RBC Red Blood Cell Count 4.52 M/uL (4.33-5.43)
[2018-03-06] MEDS: D5 0.45 NS 1,000 ML IV SCH ×2 (08:55)
[2018-03-06] MEDS: CIPROFLOXACIN 400mg IV 400 MG/200 ML BAG IV SCH (08:56)
--- NOTE | 2018-03-07 04:13 | DS ---
Date of Discharge: 03/06/2018 Admitting Diagnosis: Abdominal pain, likely mild pyelonephritis. The patient was ruled out for appe ndicitis. Discharge Diagnosis: Abdominal pain, likely mild pyelonephritis. The patient was ruled out for appe ndicitis. Procedure: None. Hospital Course: The patient is a 42-year-old gentleman who presented with lower abdominal pain. Wo rkup revealed on the CAT scan possible inflammation of the left kidney. On the prior scan done a cou ple weeks ago, both kidneys were involved and that has slightly improved. His appendix was unchanged and was dilated, but there was no evidence of any inflammation around it. There was air within the lumen of the appendix. The patient was admitted. His white count was normal. He has had 2 abdomina l exams. He never had peritonitis. He had some mild tenderness in the lower abdomen, which is compl etely improved. Today, he is tolerating his diet, and he has no pain. He is afebrile. He is ambula ting. Therefore, the patient will be discharged to home. Disposition: Home. Condition: Stable. Discharge Instructions: Resume home medications and diet. Activity as tolerated. Follow up with wi s PCP. Cipro 500 mg p.o. q.12, Flagyl 500 mg p.o. q.6. JIMI/PATRICK Voice ID: [id number] Report ID: [id number]
== END 2018-03-06 17:35 | disposition home or self-care (01) ==
LOC: ER 04:49 → ERHOLD 07:56 → 2ND 08:35
PROVIDERS: ADMIT Surgery; ATTEND Surgery
DX: R10.9 Unspecified abdominal pain (principal); F31.9 Bipolar disorder, unspecified; F41.9 Anxiety disorder, unspecified; Z23 Encounter for immunization
CPT/HCPCS: 36415; 71045; 74177; 80048; 80076; 81003; 83690; 83735; 83880; 84484; 85025; 85379; 85610; 93005; 96361; 96374; 96375; 99285; G0008; G0378; J0744; J2405; J3010; J7030; Q2035; Q9967

== ENCOUNTER 2018-03-07 00:43 | Emergency (ER) | payer MEDICAID ==
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
--- NOTE | 2018-03-07 01:46 | ER ---
Nurse's Notes [facility] Name: Juan Campos Age: 42 yrs Sex: Male : 1975 Arrival Date: 03/07/2018 Time: 00:46 Bed 14 Private MD: Diagnosis: Low back pain Presentation: 03/07 00:56 Presenting complaint: Patient states: bilateral flank pain. pt was seen in ER 2 days ak1 [employer] dx kidney infection and has not gotten antibiotics filled at pharmacy. Transition of care: patient was not received from another setting of care. Onset of symptoms is unknown. Risk Assessment: Do you want to hurt yourself or someone else? Patient reports no desire to harm self or others. Initial Sepsis Screen: Does the patient meet any 2 criteria? No. Patient's initial sepsis screen is negative. Does the patient have a suspected source of infection? No. Patient's initial sepsis screen is negative. Care prior to arrival: None. 00:56 Acuity: [place] 4 ak1 00:56 Method Of Arrival: Ambulatory ak1 Triage Assessment: 00:58 General: Appears in no apparent distress. Behavior is calm, cooperative. Pain: ak1 Complains of pain in left and right flank. EENT: No signs and/or symptoms were reported regarding the EENT system. Neuro: No deficits noted. Cardiovascular: No deficits noted. Respiratory: No deficits noted. GI: No signs and/or symptoms were reported involving the gastrointestinal system. : No signs and/or symptoms were reported regarding the genitourinary system. Derm: No signs and/or symptoms reported regarding the dermatologic system. Musculoskeletal: Range of motion: intact in all extremities. Historical: - Allergies: 00:58 NKA; ak1 - Home Meds: 00:58 None [Active]; ak1 - PMHx: 00:58 Anxiety; Bipolar disorder; ak1 - PSHx: 00:58 None; ak1 - Immunization history:: Adult Immunizations unknown. - Social history:: Smoking status: Patient/guardian denies using tobacco. - Ebola Screening: : No symptoms or risks identified at this time. Screenin:59 Abuse screen: Denies threats or abuse. Denies injuries from another. Nutritional ak1 screening: No deficits noted. Tuberculosis screening: No symptoms or risk factors identified. Fall Risk None identified. Assessment: 01:15 General: Appears in no apparent distress. comfortable, Behavior is calm, cooperative, aa1 appropriate for age. Pain: Complains of pain in low back area. Neuro: Level of Consciousness is awake, alert, obeys commands, Oriented to person, place, time, situation, Moves all extremities. Full function Gait is steady. Respiratory: Airway is patent Respiratory effort is even, unlabored, Respiratory pattern is regular, symmetrical. GI: No signs and/or symptoms were reported involving the gastrointestinal system. : Denies burning with urination, inability to void, pain with urination. : Reports pain in bilateral in lower back. EENT: No signs and/or symptoms were reported regarding the EENT system. Derm: Skin is intact, is healthy with good turgor, Skin is pink, warm \T\ dry. Musculoskeletal: Circulation, motion, and sensation intact. Capillary refill < 3 seconds, Range of motion: intact in all extremities. 02:00 Reassessment: Patient appears in no apparent distress at this time. Patient and/or aa1 family updated on plan of care and expected duration. Pain level reassessed. Patient is alert, oriented x 3, equal unlabored respirations, skin warm/dry/pink. Discussed d/c \T\ f/u instructions with pt \T\ significant other; denies questions \T\ concerns at this time. Vital Signs: 00:59 BP 137 / 93; Pulse 77; Resp 18; Temp 98.0(O); Pulse Ox 100% on R/A; Weight 83.46 kg ak1 (R); Height 6 ft. 0 in. (182.88 cm); Pain 8/10; 00:59 Body Mass Index 24.95 (83.46 kg, 182.88 cm) ak1 ED Course: 00:46 Patient arrived in ED. ag3 00:57 Triage completed. ak1 00:59 Arm band placed on Patient placed in an exam room, on a stretcher, Patient notified of ak1 wait time. 01:00 Patient has correct armband on for positive identification. Bed in low position. Call ak1 light in reach. Side rails up X 1. Adult w/ patient. Pulse ox on. NIBP on. 01:03 Musa Merino NP is PHCP. pm1 01:03 Lei Nur MD is Attending Physician. pm1 02:11 [place], Shireen, RN is Primary Nurse. aa1 02:12 No provider procedures requiring assistance completed. Patient did not have IV access aa1 during this emergency room visit. Administered Medications: 02:11 Drug: Flagyl 500 mg Route: PO; aa1 02:13 Follow up: Response: Medication administered at discharge. aa1 02:11 Drug: Cipro 500 mg Route: PO; aa1 02:12 Follow up: Response: Medication administered at discharge. aa1 Outcome: 01:45 Discharge ordered by MD. pm1 02:12 Patient left the ED. aa1 02:12 Discharged to home ambulatory, with significant other. aa1 02:12 Condition: good 02:12 Discharge instructions given to patient, significant other, Instructed on discharge instructions, follow up and referral plans. Demonstrated understanding of instructions, follow-up care. Signatures: Shireen Ahmadi, RN RN aa1 Marina Sterling RN RN ak1 Musa Merino, BRICKMASON BRICKMASON pm1 Vonnie Brito ag3
[2018-03-07] MEDS ORDERED: CIPROFLOXACIN HCL 500 MG TAB ONE (02:09)
[2018-03-07] MEDS ORDERED: metroNIDAZOLE 500 MG TABLET ONE (02:09)
== END 2018-03-07 02:12 | disposition home or self-care (01) ==
LOC: ER 00:43
DX: M54.5 Low back pain (principal)
CPT/HCPCS: 99283

== ENCOUNTER 2018-03-07 08:49 | Emergency (ER) | payer MEDICAID ==
[2018-03-07 10:06] LABS: Absolute Lymphocytes (CBC) 1.6 K/uL (0.7-4.9); Absolute Monocytes 0.5 K/uL (0.1-1.3); Absolute Neutrophil 5.5 K/uL (1.8-8.0); Basophils % 0.4 % (0-1.3); Eosinophils % 2.5 % (0-4.4); Hematocrit 43.1 % (39.6-49.0); MCH 30.1 pg (27.0-35.0); MCV 87.1 fL (80-100); MPV 9.5 fL (7.6-11.3); Monocytes % 6.5 % (3.3-12.3); RBC Red Blood Cell Count 4.95 M/uL (4.33-5.43)
[2018-03-07 10:22] LABS: Albumin 4.3 g/dL (3.4-5.0); Bilirubin Direct 0.2 mg/dL (0-0.2); Bilirubin Total 0.8 mg/dL (0.2-1.0); Potassium 3.7 mmol/L (3.5-5.1)
[2018-03-07] MEDS ORDERED: FAMOTIDINE 20 MG/2 ML VIAL IV ONE (10:24)
[2018-03-07] MEDS ORDERED: ONDANSETRON 4 MG/2 ML VIAL ONE (10:24)
[2018-03-07] MEDS ORDERED: NA CHLORIDE 0.9% 1,000 ML ONE (10:24)
--- NOTE | 2018-03-07 11:29 | ER ---
Nurse's Notes [facility] Name: Juan Campos Age: 42 yrs Sex: Male : 1975 Arrival Date: 03/07/2018 Time: 08:50 Bed 25 Private MD: Diagnosis: Abdominal tenderness Presentation: 03/07 08:50 Acuity: [place] 3 ss 08:50 Presenting complaint: EMS states: Pt reports abdominal pain, nausea, and vomiting. ed1 Transition of care: patient was not received from another setting of care. Onset of symptoms was March 07, 2018. Risk Assessment: Do you want to hurt yourself or someone else? Patient reports no desire to harm self or others. Initial Sepsis Screen: Does the patient meet any 2 criteria? No. Patient's initial sepsis screen is negative. Does the patient have a suspected source of infection? No. Patient's initial sepsis screen is negative. Care prior to arrival: None. 08:50 Method Of Arrival: EMS: [facility] ed1 Historical: - Allergies: 09:55 NKA; ed1 - PMHx: 09:55 Anxiety; Bipolar disorder; ed1 - PSHx: 09:55 None; ed1 - Immunization history:: Adult Immunizations up to date. - Social history:: Smoking status: Patient/guardian denies using tobacco. - Ebola Screening: : Patient negative for fever greater than or equal to 101.5 degrees Fahrenheit, and additional compatible Ebola Virus Disease symptoms Patient denies exposure to infectious person Patient denies travel to an Ebola-affected area in the 21 days before illness onset No symptoms or risks identified at this time. - Family history:: not pertinent. Screenin:00 Abuse screen: Denies threats or abuse. Denies injuries from another. Nutritional ed1 screening: No deficits noted. Tuberculosis screening: No symptoms or risk factors identified. Fall Risk None identified. Assessment: 08:54 Reassessment: Pt ran to bathroom stating "I didn't want to diarrhea on the bed." Pt ed1 then ambulated back to room with steady gait, closed door and began screaming loudly. I entered the patients room and asked him to lie on the stretcher so I could assess him. Pt stated "It all just hurts to bad. I can't.". 09:15 General: Appears uncomfortable, Behavior is calm, cooperative. Pain: Complains of pain ed1 in suprapubic area Pain does not radiate. Pain currently is 6 out of 10 on a pain scale. Quality of pain is described as sharp, Pain began 1 day ago. Is continuous. Neuro: Level of Consciousness is awake, alert, obeys commands, Oriented to person, place, time, situation. Cardiovascular: Denies chest pain, Heart tones S1 S2 present. Respiratory: Airway is patent Respiratory effort is even, unlabored, Respiratory pattern is regular, symmetrical, Breath sounds are clear bilaterally. GI: Abdomen is non-distended, Bowel sounds present X 4 quads. Abd is soft and non tender X 4 quads. Reports diarrhea, nausea, vomiting. : Reports inability to void. EENT: No signs and/or symptoms were reported regarding the EENT system. Derm: Skin is intact, is healthy with good turgor, Skin is dry, Skin is normal, Skin temperature is warm. Musculoskeletal: Circulation, motion, and sensation intact. 09:18 General: The previous assessment is accurate, call light remains within reach. . ss 11:11 Reassessment: Patient appears in no apparent distress at this time. Patient and/or ed1 family updated on plan of care and expected duration. Pain level reassessed. Patient is alert, oriented x 3, equal unlabored respirations, skin warm/dry/pink. Patient states feeling better. Patient states symptoms have improved. Vital Signs: 08:50 BP 141 / 93; Pulse 85; Resp 20; Pulse Ox 99% on R/A; Weight 83.46 kg; Height 6 ft. 0 ss in. (182.88 cm); Pain 0/10; 09:15 BP 122 / 74; Pulse 88; Resp 20; Temp 98.2(O); Pulse Ox 100% on R/A; Pain 6/10; ed1 09:56 BP 130 / 95; Pulse 70; Resp 20; Pulse Ox 98% on R/A; Pain 6/10; ed1 11:11 BP 121 / 84; Pulse 81; Resp 18; Temp 97.8(O); Pulse Ox 98% on R/A; Pain 0/10; ed1 08:50 Body Mass Index 24.95 (83.46 kg, 182.88 cm) ED Course: 08:50 Patient arrived in ED. ss 08:50 Arm band placed on right wrist. 08:53 Ivonne Sorto LVN is Primary Nurse. ed1 08:58 Bhavesh Brown MD is Attending Physician. [facility] 09:00 Patient has correct armband on for positive identification. Placed in gown. Bed in low ed1 position. Call light in reach. Side rails up X 1. Pulse ox on. NIBP on. 09:56 Initial lab(s) drawn, by wv, sent to lab. Inserted saline lock: 20 gauge in right ed1 antecubital area, using aseptic technique. Blood collected. 10:35 Triage completed. 11:28 Benitez Herring MD is Referral Physician. [facility] 11:43 No provider procedures requiring assistance completed. IV discontinued, intact, ed1 bleeding controlled, No redness/swelling at site. Pressure dressing applied. Administered Medications: 10:35 Drug: NS 0.9% 1000 ml Route: IV; Rate: 1 bolus; Site: left antecubital; 11:33 Follow up: IV Status: Completed infusion; IV Intake: 1000ml ed1 10:35 Drug: Zofran 4 mg Route: IVP; Site: left antecubital; 11:33 Follow up: Response: No adverse reaction ed1 10:35 Drug: Pepcid 20 mg Route: IVP; Site: left antecubital; 11:33 Follow up: Response: No adverse reaction ed1 Intake: 11:33 IV: 1000ml; Total: 1000ml. ed1 Output: 09:30 Urine: 500ml (Voided); Total: 500ml. ed1 Outcome: 11:28 Discharge ordered by . [facility] 11:43 Discharged to home ambulatory. ed1 11:43 Condition: good 11:43 Discharge instructions given to patient, Instructed on discharge instructions, follow up and referral plans. medication usage, Demonstrated understanding of instructions, follow-up care, medications, Prescriptions given X 3. 11:45 Patient left the ED. ed1 Signatures: Bhavesh Brown MD MD cha Smirch, Shelby, DRAKE RN Ivonne Sorto LVN LVN ed1
--- NOTE | 2018-03-07 11:29 | EDPHYS ---
Physician Documentation [facility] Name: Juan Campos Age: 42 yrs Sex: Male : 1975 Arrival Date: 03/07/2018 Time: 08:50 Bed 25 Private MD: ED Physician Bhavesh Brown HPI: 03/07 11:26 This 42 yrs old Male presents to ER via Unassigned with complaints of diane abdominal pain, diarrhea. 11:26 The patient presents with abdominal pain. Onset: The symptoms/episode began/occurred 2 diane day(s) ago. The symptoms do not radiate. Associated signs and symptoms: Pertinent positives: diarrhea. Modifying factors: The symptoms are alleviated by nothing, the symptoms are aggravated by nothing. Severity of pain: At its worst the pain was mild moderate in the emergency department the pain is unchanged. The patient has experienced similar episodes in the past, several times. Historical: - Allergies: 09:55 NKA; ed1 - PMHx: 09:55 Anxiety; Bipolar disorder; ed1 - PSHx: 09:55 None; ed1 - Immunization history:: Adult Immunizations up to date. - Social history:: Smoking status: Patient/guardian denies using tobacco. - Ebola Screening: : Patient negative for fever greater than or equal to 101.5 degrees Fahrenheit, and additional compatible Ebola Virus Disease symptoms Patient denies exposure to infectious person Patient denies travel to an Ebola-affected area in the 21 days before illness onset No symptoms or risks identified at this time. - Family history:: not pertinent. ROS: 11:26 Constitutional: Negative for fever, chills, and weight loss, Eyes: Negative for injury, diane pain, redness, and discharge, ENT: Negative for injury, pain, and discharge, Neck: Negative for injury, pain, and swelling, Cardiovascular: Negative for chest pain, palpitations, and edema, Respiratory: Negative for shortness of breath, cough, wheezing, and pleuritic chest pain, Back: Negative for injury and pain, : Negative for injury, bleeding, discharge, and swelling, MS/Extremity: Negative for injury and deformity, Skin: Negative for injury, rash, and discoloration, Neuro: Negative for headache, weakness, numbness, tingling, and seizure, Psych: Negative for depression, anxiety, suicide ideation, homicidal ideation, and hallucinations, Allergy/Immunology: Negative for hives, rash, and allergies, Endocrine: Negative for neck swelling, polydipsia, polyuria, polyphagia, and marked weight changes, Hematologic/Lymphatic: Negative for swollen nodes, abnormal bleeding, and unusual bruising. 11:26 Abdomen/GI: Positive for abdominal pain, nausea, diarrhea, of the umbilical area, suprapubic area, right upper quadrant, left upper quadrant, right lower quadrant and left lower quadrant. Exam: 11:26 Constitutional: This is a well developed, well nourished patient who is awake, alert, diane and in no acute distress. Head/Face: Normocephalic, atraumatic. Eyes: Pupils equal round and reactive to light, extra-ocular motions intact. Lids and lashes normal. Conjunctiva and sclera are non-icteric and not injected. Cornea within normal limits. Periorbital areas with no swelling, redness, or edema. ENT: Nares patent. No nasal discharge, no septal abnormalities noted. Tympanic membranes are normal and external auditory canals are clear. Oropharynx with no redness, swelling, or masses, exudates, or evidence of obstruction, uvula midline. Mucous membranes moist. Neck: Trachea midline, no thyromegaly or masses palpated, and no cervical lymphadenopathy. Supple, full range of motion without nuchal rigidity, or vertebral point tenderness. No Meningismus. Chest/axilla: Normal chest wall appearance and motion. Nontender with no deformity. No lesions are appreciated. Cardiovascular: Regular rate and rhythm with a normal S1 and S2. No gallops, murmurs, or rubs. Normal PMI, no JVD. No pulse deficits. Respiratory: Lungs have equal breath sounds bilaterally, clear to auscultation and percussion. No rales, rhonchi or wheezes noted. No increased work of breathing, no retractions or nasal flaring. Abdomen/GI: Soft, non-tender, with normal bowel sounds. No distension or tympany. No guarding or rebound. No evidence of tenderness throughout. Back: No spinal tenderness. No costovertebral tenderness. Full range of motion. Male : Normal genitalia with no discharge or lesions. Skin: Warm, dry with normal turgor. Normal color with no rashes, no lesions, and no evidence of cellulitis. MS/ Extremity: Pulses equal, no cyanosis. Neurovascular intact. Full, normal range of motion. Neuro: Awake and alert, GCS 15, oriented to person, place, time, and situation. Cranial nerves II-XII grossly intact. Motor strength 5/5 in all extremities. Sensory grossly intact. Cerebellar exam normal. Normal gait. Psych: Awake, alert, with orientation to person, place and time. Behavior, mood, and affect are within normal limits. Vital Signs: 08:50 BP 141 / 93; Pulse 85; Resp 20; Pulse Ox 99% on R/A; Weight 83.46 kg; Height 6 ft. 0 ss in. (182.88 cm); Pain 0/10; 09:15 BP 122 / 74; Pulse 88; Resp 20; Temp 98.2(O); Pulse Ox 100% on R/A; Pain 6/10; ed1 09:56 BP 130 / 95; Pulse 70; Resp 20; Pulse Ox 98% on R/A; Pain 6/10; ed1 11:11 BP 121 / 84; Pulse 81; Resp 18; Temp 97.8(O); Pulse Ox 98% on R/A; Pain 0/10; ed1 08:50 Body Mass Index 24.95 (83.46 kg, 182.88 cm) MDM: 08:58 Patient medically screened. [facility] 03/07 08:59 Order name: Basic Metabolic Panel; Complete Time: 11:18 [facility] 03/07 08:59 Order name: CBC with Diff; Complete Time: 11:18 [facility] 03/07 08:59 Order name: Creatinine for Radiology; Complete Time: 11:18 [facility] 03/07 08:59 Order name: Hepatic Function; Complete Time: 11:18 [facility] 03/07 08:59 Order name: Lipase; Complete Time: 11:18 [facility] 03/07 08:59 Order name: IV Saline Lock; Complete Time: 09:54 [facility] 03/07 08:59 Order name: Labs collected and sent; Complete Time: 09:54 [facility] Administered Medications: 10:35 Drug: NS 0.9% 1000 ml Route: IV; Rate: 1 bolus; Site: left antecubital; ss 11:33 Follow up: IV Status: Completed infusion; IV Intake: 1000ml ed1 10:35 Drug: Zofran 4 mg Route: IVP; Site: left antecubital; ss 11:33 Follow up: Response: No adverse reaction ed1 10:35 Drug: Pepcid 20 mg Route: IVP; Site: left antecubital; ss 11:33 Follow up: Response: No adverse reaction ed1 Disposition: 03/07/18 11:28 Discharged to Home. Impression: Abdominal tenderness. - Condition is Stable. - Discharge Instructions: Abdominal Pain, Adult, Food Choices to Help Relieve Diarrhea, Adult, Diarrhea, Adult, Nausea and Vomiting, Adult, Abdominal Pain, Adult, [id number], Diarrhea, Adult, [id number]. - Prescriptions for Bentyl 20 mg Oral Tablet - take 1 tablet by ORAL route every 6 hours As needed; 20 tablet. Pepcid 20 mg Oral Tablet - take 1 tablet by ORAL route every 12 hours for 10 days; 20 tablet. Zofran 4 mg Oral Tablet - take 1 tablet by ORAL route every 12 hours As needed; 20 tablet. - Medication Reconciliation Form, Thank You Letter, Antibiotic Education, Prescription Opioid Use form. - Follow up: Emergency Department; When: 2 - 3 days; Reason: Recheck today's complaints, Continuance of care, Re-evaluation by your physician. Follow up: Benitez Herring MD; When: 2 - 3 days; Reason: Recheck today's complaints, Re-evaluation by your physician. - Problem is new. - Symptoms have improved. Signatures: Dispatcher [employer] EDMS Bhavesh Brown MD MD cha Smirch, Shelby RN RN Ivonne Bay LVN [employer] TRAINER ed1 Corrections: (The following items were deleted from the chart) 11:45 11:28 03/07/2018 11:28 Discharged to Home. Impression: Abdominal tenderness. Condition ed1 is Stable. Forms are Medication Reconciliation Form, Thank You Letter, Antibiotic Education, Prescription Opioid Use. Follow up: Emergency Department; When: 2 - 3 days; Reason: Recheck today's complaints, Continuance of care, Re-evaluation by your physician. Follow up: Benitez Herring; When: 2 - 3 days; Reason: Recheck today's complaints, Re-evaluation by your physician. Problem is new. Symptoms have improved. diane
== END 2018-03-07 11:45 | disposition home or self-care (01) ==
LOC: ER 08:49
DX: R10.819 Abdominal tenderness, unspecified site (principal); R19.7 Diarrhea, unspecified
CPT/HCPCS: 36415; 80048; 80076; 83690; 85025; 96361; 96374; 96375; 99284; J2405; J7030

== ENCOUNTER 2018-03-08 01:36 | Emergency (ER) | payer MEDICAID ==
--- NOTE | 2018-03-08 02:20 | ER ---
Nurse's Notes [facility] Name: Juan Campos Age: 42 yrs Sex: Male : 1975 Arrival Date: 03/08/2018 Time: 01:37 Bed 6 Private MD: Diagnosis: Insomnia Presentation: 03/08 01:37 Presenting complaint: EMS states: they were toned out for report of pt having pain all bb over and nausea and vomiting pt seen last night for similar symptoms currently taking Flagyl and Cipro. Transition of care: patient was not received from another setting of care. Onset of symptoms was March 08, 2018. Risk Assessment: Do you want to hurt yourself or someone else? Patient reports no desire to harm self or others. Initial Sepsis Screen: Does the patient meet any 2 criteria? No. Patient's initial sepsis screen is negative. Does the patient have a suspected source of infection? No. Patient's initial sepsis screen is negative. Care prior to arrival: None. 01:37 Method Of Arrival: EMS: [facility] 01:37 Acuity: [place] 5 bb Historical: - Allergies: 01:39 NKA; bb - Home Meds: 01:39 Flagyl Oral [Active]; Cipro Oral [Active]; bb - PMHx: 01:39 Anxiety; Bipolar disorder; bb - PSHx: 01:39 None; bb - Immunization history:: Adult Immunizations up to date. - Ebola Screening: : No symptoms or risks identified at this time. Screenin:50 Abuse screen: Denies threats or abuse. Denies injuries from another. Nutritional lp1 screening: No deficits noted. Tuberculosis screening: No symptoms or risk factors identified. Fall Risk None identified. Assessment: 01:48 General: Appears in no apparent distress. Behavior is anxious. Pain: Complains of pain lp1 in generalized Pain currently is 8 out of 10 on a pain scale. Neuro: Level of Consciousness is awake, alert, obeys commands, Oriented to person, place, time, situation. Cardiovascular: Patient's skin is warm and dry. Respiratory: Respiratory effort is even, unlabored. GI: Abdomen is non-distended, Reports nausea. : Reports currently being treated for UTI. EENT: No deficits noted. Derm: Skin is pink, warm \T\ dry. Musculoskeletal: Circulation, motion, and sensation intact. 02:44 Reassessment: Patient appears in no apparent distress at this time. Patient is alert, aa1 oriented x 3, equal unlabored respirations, skin warm/dry/pink. Discussed d/c \T\ f/u instructions with pt \T\ spouse; denies questions or concerns at this time. Vital Signs: 01:39 BP 148 / 96; Pulse 79; Resp 16 S; Temp 98.2(O); Pulse Ox 100% on R/A; Weight 83.46 kg bb (R); Height 6 ft. 0 in. (182.88 cm) (R); 02:44 BP 133 / 89; Pulse 71; Resp 16; Pulse Ox 100% on R/A; aa1 01:39 Body Mass Index 24.95 (83.46 kg, 182.88 cm) bb ED Course: 01:37 Patient arrived in ED. ds1 01:38 Triage completed. bb 01:39 Arm band placed on Patient placed in an exam room, on a stretcher, on pulse oximetry. bb 01:50 Patient has correct armband on for positive identification. lp1 01:52 Musa Merino NP is PHCP. pm1 01:52 Benitez Duarte MD is Attending Physician. pm1 02:40 Shireen Ahmadi, DRAKE is Primary Nurse. aa1 02:44 No provider procedures requiring assistance completed. Patient did not have IV access aa1 during this emergency room visit. Administered Medications: 02:35 Drug: hydrOXYzine 25 mg Route: PO; aa1 02:44 Follow up: Response: Medication administered at discharge. aa1 02:35 Drug: Zofran 4 mg Route: PO; aa1 02:42 Follow up: Response: No adverse reaction; Medication administered at discharge. aa1 Outcome: 02:19 Discharge ordered by . pm1 02:44 Discharged to home ambulatory, with significant other. aa1 02:44 Condition: good 02:44 Discharge instructions given to patient, significant other, Instructed on discharge instructions, follow up and referral plans. medication usage, Demonstrated understanding of instructions, follow-up care, medications, Prescriptions given X 1. 02:47 Patient left the ED. aa1 Signatures: Shireen Ahmadi RN RN aa1 Gricel Connelly ds1 Desiree Herrera RN RN bb Fannie Yates RN RN lp1 Musa Merino, QUANTITATIVE CONSULTANT QUANTITATIVE CONSULTANT pm1
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
[2018-03-08] MEDS ORDERED: hydrOXYzine HCl 25 MG TAB ONE (02:35)
[2018-03-08] MEDS ORDERED: ONDANSETRON 4 MG (ODT) TAB ONE (02:35)
== END 2018-03-08 02:47 | disposition home or self-care (01) ==
LOC: ER 01:36
DX: G47.00 Insomnia, unspecified (principal)
CPT/HCPCS: 99284

== ENCOUNTER 2018-07-01 04:39 | Emergency (ER) | payer MEDICAID ==
--- OUTSIDE RECORDS SUMMARY | 2018-07-01 04:41 | XMS REPORT | Continuity of Care Document ---
:1975 Author Organization Interface Problems Problem Status Onset Date Classification Date Comments Source Reported Medications Medication Details Route Status Patient Ordering Order Source Instructions Provider Date Allergies, Adverse Reactions, Alerts Substance Category Reaction Severity Reaction Status Date Comments Source type Reported Immunizations Immunization Date Given Site Status Last Updated Comments Source Results Order Results Value Reference Date Interpretation Comments Source Name Range Vital Signs Vital Sign Value Date Comments Source Encounters Location Location Encounter Encounter Reason Attending ADM DC Status Source Details Type Number For Provider Date Date Visit Outpatient [id number] [place] 03/16 [facility] [address] [place] [address] Outpatient [id number] [place] 04/[address] Procedures Procedure Code Date Perfomer Comments Source
--- OUTSIDE RECORDS SUMMARY | 2018-07-01 04:41 | XMS REPORT ---
:1975 [facility] Address [address] [place] [address] Dr. Andres[address] [place] [id number] Care Team Providers Name Role Phone Unavailable Unavailable Unavailable Problems This patient has no known problems. Allergies, Adverse Reactions, Alerts This patient has no known allergies or adverse reactions. Medications This patient has no known medications.
[2018-07-01 06:03] LABS: Absolute Lymphocytes (CBC) 2.3 K/uL (0.7-4.9); Absolute Monocytes 0.4 K/uL (0.1-1.3); Absolute Neutrophil 2.9 K/uL (1.8-8.0); Basophils % 0.7 % (0-1.3); Eosinophils % 8.5 % (0-4.4); Hematocrit 41.8 % (39.6-49.0); Lymphocytes % 37.4 % (15.3-44.8); MPV 9.2 fL (7.6-11.3); Monocytes % 7.1 % (3.3-12.3); RBC Red Blood Cell Count 4.73 M/uL (4.33-5.43)
[2018-07-01 06:16] LABS: Potassium 4.3 mmol/L (3.5-5.1); Troponin (Emerg Dept Use Only) 0.02 ng/mL (0.0-0.045)
--- NOTE | 2018-07-01 06:22 | EDPHYS ---
Physician Documentation [facility] Name: Juan Campos Age: 42 yrs Sex: Male : 1975 Arrival Date: 07/01/2018 Time: 04:40 Bed 17 Private MD: ED Physician Molina Quiros HPI: 07/01 05:39 This 42 yrs old Male presents to ER via EMS with complaints of dizzy. gs 05:39 The patient presents with lightheadedness. Onset: The symptoms/episode began/occurred gs acutely, upon waking. Context: occurred at home. Modifying factors: The symptoms are alleviated by nothing, the symptoms are aggravated by nothing. Associated signs and symptoms: Pertinent positives: diaphoresis, Pertinent negatives: chest pain. Severity of symptoms: At their worst the symptoms were moderate in the emergency department the symptoms have resolved. The patient has experienced similar episodes in the past, a few times. The patient has been recently seen by a physician: put on nystatin. Historical: - Allergies: 04:45 NKA; bb - Home Meds: 04:45 None [Active]; bb - PMHx: 04:45 Anxiety; Bipolar disorder; bb - PSHx: 04:45 Hernia repair; Vasectomy; bb - Immunization history:: Adult Immunizations up to date, Flu vaccine is not up to date. - Social history:: Smoking status: Patient/guardian denies using tobacco, Patient/guardian denies using alcohol, street drugs. - Ebola Screening: : No symptoms or risks identified at this time. ROS: 05:39 All other systems are negative. gs Exam: 05:39 Head/Face: Normocephalic, atraumatic. Eyes: Pupils equal round and reactive to light, gs extra-ocular motions intact. Lids and lashes normal. Conjunctiva and sclera are non-icteric and not injected. Cornea within normal limits. Periorbital areas with no swelling, redness, or edema. ENT: Nares patent. No nasal discharge, no septal abnormalities noted. Tympanic membranes are normal and external auditory canals are clear. Oropharynx with no redness, swelling, or masses, exudates, or evidence of obstruction, uvula midline. Mucous membranes moist. Neck: Trachea midline, no thyromegaly or masses palpated, and no cervical lymphadenopathy. Supple, full range of motion without nuchal rigidity, or vertebral point tenderness. No Meningismus. Chest/axilla: Normal chest wall appearance and motion. Nontender with no deformity. No lesions are appreciated. Cardiovascular: Regular rate and rhythm with a normal S1 and S2. No gallops, murmurs, or rubs. Normal PMI, no JVD. No pulse deficits. Respiratory: Lungs have equal breath sounds bilaterally, clear to auscultation and percussion. No rales, rhonchi or wheezes noted. No increased work of breathing, no retractions or nasal flaring. Abdomen/GI: Soft, non-tender, with normal bowel sounds. No distension or tympany. No guarding or rebound. No evidence of tenderness throughout. Back: No spinal tenderness. No costovertebral tenderness. Full range of motion. Skin: Warm, dry with normal turgor. Normal color with no rashes, no lesions, and no evidence of cellulitis. MS/ Extremity: Pulses equal, no cyanosis. Neurovascular intact. Full, normal range of motion. Neuro: Awake and alert, GCS 15, oriented to person, place, time, and situation. Cranial nerves II-XII grossly intact. Motor strength 5/5 in all extremities. Sensory grossly intact. Cerebellar exam normal. Normal gait. 05:39 Constitutional: The patient appears in no acute distress, alert, awake. 05:39 ECG was reviewed by the Attending Physician. Vital Signs: 04:45 BP 130 / 94; Pulse 88; Resp 16 S; Temp 98.1(O); Pulse Ox 100% on R/A; Weight 89.81 kg bb (R); Height 5 ft. 9 in. (175.26 cm) (R); Pain 7/10; 06:00 BP 112 / 79; Pulse 77; Resp 16; Pulse Ox 97% on R/A; jb4 04:45 Body Mass Index 29.24 (89.81 kg, 175.26 cm) bb MDM: 05:23 Patient medically screened. gs 05:39 Differential diagnosis: cardiac arrhythmia, idiopathic dizziness, near-syncope, gs medication reaction(has had before similar episode to meloxicam). Data reviewed: vital signs, nurses notes, lab test result(s), EKG. Counseling: I had a detailed discussion with the patient and/or guardian regarding: the historical points, exam findings, and any diagnostic results supporting the discharge/admit diagnosis, the presence of at least one elevated blood pressure reading (>120/80) during this emergency department visit. Special discussion: I have referred the patient to see his PCP for further evaluation of high blood pressure. 07/01 05:16 Order name: CBC with Diff; Complete Time: 06:18 07/01 05:16 Order name: Basic Metabolic Panel; Complete Time: 06:18 07/01 05:16 Order name: EKG - Nurse/Tech; Complete Time: 05:43 07/01 05:16 Order name: Troponin (emerg Dept Use Only); Complete Time: 06:18 EC:39 Rate is 71 beats/min. Rhythm is regular. NC interval is normal. QRS interval is normal. gs QT interval is normal. T waves are Normal. No ST changes noted. Clinical impression: Normal ECG. No change from previous ECG on March 04, 2018. Interpreted by me. Administered Medications: No medications were administered Disposition: 07/01/18 06:22 Discharged to Home. Impression: Dizziness and giddiness. - Condition is Stable. - Discharge Instructions: Allergies, Adult, Dizziness. - Medication Reconciliation Form, Thank You Letter, Antibiotic Education, Prescription Opioid Use form. - Follow up: Private Physician; When: 2 - 3 days; Reason: Re-evaluation by your physician. Signatures: Dispatcher [employer] EDDesiree Trotter RN RN Alfredo Barajas RN RN jb4 Molina Quiros MD MD Corrections: (The following items were deleted from the chart) 06:31 06:22 07/01/2018 06:22 Discharged to Home. Impression: Dizziness and giddiness. jb4 Condition is Stable. Forms are Medication Reconciliation Form, Thank You Letter, Antibiotic Education, Prescription Opioid Use. Follow up: Private Physician; When: 2 - 3 days; Reason: Re-evaluation by your physician. gs
--- NOTE | 2018-07-01 06:22 | ER ---
Nurse's Notes [facility] Name: Juan Campos Age: 42 yrs Sex: Male : 1975 Arrival Date: 07/01/2018 Time: 04:40 Bed 17 Private MD: Diagnosis: Dizziness and giddiness Presentation: 07/01 04:41 Presenting complaint: EMS states: they were toned out for report of pt having an bb allergic reaction to nystatin which he swallowed after gargling, pt is feeling, dizzy and intoxicated, he states he was seen earlier today and got a "scan" which showed he was constipated he is having left sided pain the same as earlier. Transition of care: patient was not received from another setting of care. Onset of symptoms was July 01, 2018. Risk Assessment: Do you want to hurt yourself or someone else? Patient reports no desire to harm self or others. Initial Sepsis Screen: Does the patient meet any 2 criteria? No. Patient's initial sepsis screen is negative. Does the patient have a suspected source of infection? No. Patient's initial sepsis screen is negative. Care prior to arrival: None. 04:41 Method Of Arrival: EMS: [facility] bb 04:41 Acuity: [place] 4 bb Historical: - Allergies: 04:45 NKA; bb - Home Meds: 04:45 None [Active]; bb - PMHx: 04:45 Anxiety; Bipolar disorder; bb - PSHx: 04:45 Hernia repair; Vasectomy; bb - Immunization history:: Adult Immunizations up to date, Flu vaccine is not up to date. - Social history:: Smoking status: Patient/guardian denies using tobacco, Patient/guardian denies using alcohol, street drugs. - Ebola Screening: : No symptoms or risks identified at this time. Screenin:40 Abuse screen: Denies threats or abuse. Nutritional screening: No deficits noted. jb4 Tuberculosis screening: No symptoms or risk factors identified. Fall Risk None identified. Assessment: 04:40 General: Appears in no apparent distress. uncomfortable, Behavior is cooperative, jb4 anxious. Pain: Complains of pain in back and abdomen Pain does not radiate. Pain currently is 7 out of 10 on a pain scale. Neuro: Level of Consciousness is awake, alert, obeys commands, Oriented to person, place, time, situation. Cardiovascular: Heart tones S1 S2 present Patient's skin is warm and dry. Respiratory: Airway is patent Respiratory effort is even, unlabored, Respiratory pattern is regular, symmetrical, Breath sounds are clear bilaterally. GI: Pt reports being seen earlier today for abdominal pain and received a diagnosis of constipation. : No signs and/or symptoms were reported regarding the genitourinary system. EENT: Throat is clear is reddened. Derm: Skin is intact, Skin is pink, warm \\T\\ dry. Musculoskeletal: Circulation, motion, and sensation intact. Range of motion: intact in all extremities. 06:00 Reassessment: Patient appears in no apparent distress at this time. Patient and/or jb4 family updated on plan of care and expected duration. Pain level reassessed. Patient is alert, oriented x 3, equal unlabored respirations, skin warm/dry/pink. Vital Signs: 04:45 BP 130 / 94; Pulse 88; Resp 16 S; Temp 98.1(O); Pulse Ox 100% on R/A; Weight 89.81 kg bb (R); Height 5 ft. 9 in. (175.26 cm) (R); Pain 7/10; 06:00 BP 112 / 79; Pulse 77; Resp 16; Pulse Ox 97% on R/A; jb4 04:45 Body Mass Index 29.24 (89.81 kg, 175.26 cm) ED Course: 04:40 Patient arrived in ED. al2 04:40 Patient has correct armband on for positive identification. Bed in low position. Call jb4 light in reach. Side rails up X 1. Pulse ox on. NIBP on. 04:44 Triage completed. bb 04:45 Arm band placed on Patient placed in an exam room, on a stretcher, on pulse oximetry. Family accompanied patient. 04:59 Alfredo Armas, DRAKE is Primary Nurse. jb4 05:13 Molina Quiros MD is Attending Physician. 05:40 No provider procedures requiring assistance completed. Initial lab(s) drawn, by tn, jb4 sent to lab. Inserted saline lock: 20 gauge in left antecubital area, using aseptic technique. Blood collected. 06:30 IV discontinued, intact, bleeding controlled. jb4 Administered Medications: No medications were administered Outcome: 06:22 Discharge ordered by . gs 06:30 Discharged to home ambulatory, with significant other. jb4 06:30 Condition: stable 06:30 Discharge instructions given to patient, significant other, Instructed on discharge instructions, follow up and referral plans. Demonstrated understanding of instructions, follow-up care. 06:31 Patient left the ED. jb4 Signatures: Desiree Herrera RN RN Alfredo Barajas RN RN jb4 Molina Quiros MD MD gs Love, Peg escudero Corrections: (The following items were deleted from the chart) 06:18 06:00 BP 99 / 61; Pulse 77bpm; Resp 16bpm; Pulse Ox 97% RA; jb4 jb4
--- NOTE | 2018-07-03 20:54 | EKG ---
Test Date: 2018-07-01 Test Time: 05:31:32 Automation Specialist: ANEL MEASUREMENT RESULTS: Intervals: Rate: 71 [place]: 148 QRSD: 96 QT: 366 QTc: 397 [place]: P: 59 WA: 148 QRS: 65 T: 50 INTERPRETIVE STATEMENTS: Normal sinus rhythm Normal ECG Compared to ECG 03/04/2018 05:39:27 No significant changes Electronically Signed On 07-03-18 20:48:36 VALET SERVICE ATTENDANT by Jim Delgadillo
== END 2018-07-01 06:31 | disposition home or self-care (01) ==
LOC: ER 04:39
DX: R42 Dizziness and giddiness (principal)
CPT/HCPCS: 36415; 80048; 84484; 85025; 93005; 99284

== ENCOUNTER 2018-07-10 05:24 | Emergency (ER) | payer MEDICAID ==
--- OUTSIDE RECORDS SUMMARY | 2018-07-10 05:27 | XMS REPORT | Continuity of Care Document ---
[...] Number For Provider Date Date Visit Outpatient [id number] [place] 03/16 [facility] [address] [place] [address] Outpatient [id number] [place] 04/[address] Procedures Procedure Code Date Perfomer Comments Source
--- OUTSIDE RECORDS SUMMARY | 2018-07-10 05:27 | XMS REPORT ---
:1975 [facility] Address [address] [place] [address] Dr. Lee [address] [place] [id number] Care Team Providers Name Role Phone Unavailable Unavailable Unavailable Problems This patient has no known problems. Allergies, Adverse Reactions, Alerts This patient has no known allergies or adverse reactions. Medications This patient has no known medications.
--- NOTE | 2018-07-10 06:05 | EDPHYS ---
Physician Documentation [facility] Name: Juan Campos Age: 42 yrs Sex: Male : 1975 Arrival Date: 07/10/2018 Time: 05:25 Bed 15 Private MD: ED Physician Molina Quiros HPI: 07/10 06:02 This 42 yrs old Male presents to ER via Ambulatory with complaints of gs Abdominal Pain, Constipation. 06:02 Onset: The symptoms/episode began/occurred 6 month(s) ago. Associated signs and gs symptoms: Pertinent negatives: fever, vomiting. Severity of pain: At its worst the pain was mild in the emergency department the pain is unchanged. The patient has experienced similar episodes in the past, chronically. went to [facility] for same on 06/30/18 then saw me the next day with no mention of same problem. has not been put on a bowel regimen.. Historical: - Allergies: 05:43 NKA; rr5 - PMHx: 05:43 Anxiety; Bipolar disorder; rr5 - PSHx: 05:43 Hernia repair; Vasectomy; rr5 - Immunization history:: Adult Immunizations up to date, Flu vaccine is not up to date. - Social history:: Smoking status: Patient/guardian denies using tobacco, Patient/guardian denies using alcohol, street drugs. - Ebola Screening: : No symptoms or risks identified at this time. ROS: 06:02 All other systems are negative. gs Exam: 06:02 Head/Face: Normocephalic, atraumatic. Eyes: Pupils equal round and reactive to light, gs extra-ocular motions intact. Lids and lashes normal. Conjunctiva and sclera are non-icteric and not injected. Cornea within normal limits. Periorbital areas with no swelling, redness, or edema. ENT: Nares patent. No nasal discharge, no septal abnormalities noted. Tympanic membranes are normal and external auditory canals are clear. Oropharynx with no redness, swelling, or masses, exudates, or evidence of obstruction, uvula midline. Mucous membranes moist. Neck: Trachea midline, no thyromegaly or masses palpated, and no cervical lymphadenopathy. Supple, full range of motion without nuchal rigidity, or vertebral point tenderness. No Meningismus. Chest/axilla: Normal chest wall appearance and motion. Nontender with no deformity. No lesions are appreciated. Cardiovascular: Regular rate and rhythm with a normal S1 and S2. No gallops, murmurs, or rubs. Normal PMI, no JVD. No pulse deficits. Respiratory: Lungs have equal breath sounds bilaterally, clear to auscultation and percussion. No rales, rhonchi or wheezes noted. No increased work of breathing, no retractions or nasal flaring. Abdomen/GI: Soft, non-tender, with normal bowel sounds. No distension or tympany. No guarding or rebound. No evidence of tenderness throughout. Back: No spinal tenderness. No costovertebral tenderness. Full range of motion. Skin: Warm, dry with normal turgor. Normal color with no rashes, no lesions, and no evidence of cellulitis. MS/ Extremity: Pulses equal, no cyanosis. Neurovascular intact. Full, normal range of motion. Neuro: Awake and alert, GCS 15, oriented to person, place, time, and situation. Cranial nerves II-XII grossly intact. Motor strength 5/5 in all extremities. Sensory grossly intact. Cerebellar exam normal. Normal gait. 06:02 Constitutional: The patient appears alert, awake. Vital Signs: 05:43 BP 118 / 93; Pulse 72; Resp 16 S; Temp 98(O); Pulse Ox 100% on R/A; Weight 86.18 kg rr5 (R); Height 5 ft. 9 in. (175.26 cm) (R); Pain 8/10; 06:15 BP 124 / 93; Pulse 71; Resp 18; Temp 98; Pulse Ox 97% on R/A; ak1 05:43 Body Mass Index 28.06 (86.18 kg, 175.26 cm) rr5 MDM: 06:00 Patient medically screened. 06:02 Differential diagnosis: non-specific abd pain, constipation. Data reviewed: vital gs signs, nurses notes. Response to treatment: There is no appreciated change of the patient's symptoms at this time, and as a result, I will discharge patient. Administered Medications: No medications were administered Disposition: 07/10/18 06:04 Discharged to Home. Impression: Constipation. - Condition is Stable. - Discharge Instructions: Constipation, Adult, [id number]. - Prescriptions for Dulcolax 10 mg Rectal Suppository - insert 1 suppository by RECTAL route every 12 hours As needed; 10 suppository. Miralax 17 gram/dose Oral - take 1 packet by ORAL route once daily dilute powder in 8 ounces of water or juice; 1 bottle. - Medication Reconciliation Form, Thank You Letter, Antibiotic Education, Prescription Opioid Use form. - Follow up: Private Physician; When: 2 - 3 days; Reason: Re-evaluation by your physician. Signatures: Marina Sterling RN RN ak1 Molina Quiros MD MD Greg Yin RN RN rr5 Corrections: (The following items were deleted from the chart) 06:17 06:04 07/10/2018 06:04 Discharged to Home. Impression: Constipation. Condition is ak1 Stable. Forms are Medication Reconciliation Form, Thank You Letter, Antibiotic Education, Prescription Opioid Use. Follow up: Private Physician; When: 2 - 3 days; Reason: Re-evaluation by your physician. gs
--- NOTE | 2018-07-10 06:05 | ER ---
Nurse's Notes [facility] Name: Juan Campos Age: 42 yrs Sex: Male : 1975 Arrival Date: 07/10/2018 Time: 05:25 Bed 15 Private MD: Diagnosis: Constipation Presentation: 07/10 05:41 Presenting complaint: Patient states: he has seen multiple doctors for his constipation rr5 but they just keep trying different things which don't work now he is having abdominal pain and nausea. Transition of care: patient was not received from another setting of care. Onset of symptoms is unknown. Risk Assessment: Do you want to hurt yourself or someone else? Patient reports no desire to harm self or others. Initial Sepsis Screen: Does the patient meet any 2 criteria? No. Patient's initial sepsis screen is negative. Does the patient have a suspected source of infection? No. Patient's initial sepsis screen is negative. Care prior to arrival: None. 05:41 Method Of Arrival: Ambulatory rr5 05:41 Acuity: [place] 3 rr5 Historical: - Allergies: 05:43 NKA; rr5 - PMHx: 05:43 Anxiety; Bipolar disorder; rr5 - PSHx: 05:43 Hernia repair; Vasectomy; rr5 - Immunization history:: Adult Immunizations up to date, Flu vaccine is not up to date. - Social history:: Smoking status: Patient/guardian denies using tobacco, Patient/guardian denies using alcohol, street drugs. - Ebola Screening: : No symptoms or risks identified at this time. Screenin:15 Abuse screen: Denies threats or abuse. Denies injuries from another. Nutritional ak1 screening: No deficits noted. Tuberculosis screening: No symptoms or risk factors identified. Fall Risk None identified. Assessment: 06:15 General: Appears in no apparent distress. Behavior is cooperative. Pain: Complains of ak1 pain in abdomen. Neuro: No deficits noted. Cardiovascular: No deficits noted. Respiratory: No deficits noted. GI: Bowel sounds present X 4 quads. Abd is non tender Reports constipation. : No signs and/or symptoms were reported regarding the genitourinary system. EENT: No signs and/or symptoms were reported regarding the EENT system. Derm: No signs and/or symptoms reported regarding the dermatologic system. Musculoskeletal: No signs and/or symptoms reported regarding the musculoskeletal system. Vital Signs: 05:43 BP 118 / 93; Pulse 72; Resp 16 S; Temp 98(O); Pulse Ox 100% on R/A; Weight 86.18 kg rr5 (R); Height 5 ft. 9 in. (175.26 cm) (R); Pain 8/10; 06:15 BP 124 / 93; Pulse 71; Resp 18; Temp 98; Pulse Ox 97% on R/A; ak1 05:43 Body Mass Index 28.06 (86.18 kg, 175.26 cm) rr5 ED Course: 05:25 Patient arrived in ED. am2 05:42 Triage completed. rr5 05:43 Arm band placed on Patient placed in an exam room, on a stretcher, on pulse oximetry. rr5 Family accompanied patient. 05:55 Molina Quiros MD is Attending Physician. 06:15 Marina Sterling RN is Primary Nurse. ak1 06:15 Patient has correct armband on for positive identification. Call light in reach. Side ak1 rails up X 1. Adult w/ patient. Pulse ox on. NIBP on. 06:15 No provider procedures requiring assistance completed. Patient did not have IV access ak1 during this emergency room visit. Administered Medications: No medications were administered Outcome: 06:04 Discharge ordered by . 06:15 Discharged to home ambulatory, with family. ak1 06:15 Condition: stable 06:15 Discharge instructions given to patient, Instructed on discharge instructions, follow up and referral plans. medication usage, Demonstrated understanding of instructions, follow-up care, medications, Prescriptions given X 2. 06:17 Patient left the ED. ak1 Signatures: Marina Sterling, RN RN ak1 Mell Williamson am2 Molina Quiros MD MD Greg Yin RN RN rr5
== END 2018-07-10 06:17 | disposition home or self-care (01) ==
LOC: ER 05:24
DX: K59.00 Constipation, unspecified (principal)
CPT/HCPCS: 99283

== ENCOUNTER 2021-02-01 13:45 | Emergency (ER) | payer OTHER ==
--- OUTSIDE RECORDS SUMMARY | 2021-02-01 13:47 | XMS REPORT | Continuity of Care Document ---
:1975 Author Organization [facility] t Address [address] [place] [address] Care Team Providers Name Role Phone Benitez Woody Attending Clinician Problems Condition Condition Condition Status Onset Resolution Last Treating Co mments Source Name Details Category Date Date Treatment Clinician Date Paresthesi Problem Active 2018-12-15 M emoria a 11:44:54 l (finding) Dorsey Paresthesi a (finding) Active Problem 12/15/2018 [facility] Stomach Problem Active 2018-12-15 Ming shelia ache 11:44:54 l (finding) Stomach Herm binu ache (finding) Active Problem 12/15/2018 [facility] Allergies, Adverse Reactions, Alerts This patient has no known allergies or adverse reactions. Social History Smoking Status Start Date Stop Date Source Social History [facility] Medications Ordered Filled Start Stop Current Ordering Indication Dosage Frequency Signature Comments Components Source Medication Medication Date Date Medication? Clinician (SIG) Name Name Metronidazo 2017-06 No 500 mg = 1 Memoria le 0-11 tab, PO, l 15:33: Q6H, 0 Dorsey 00 Refill(s) Omeprazole 2017-06 No 40 mg, PO, M emoria 0-11 Daily, 0 l 15:33: Refill(s) Dorsey 00 Dicyclomine 2017-06 No 20 mg, PO, Memoria 0-11 Q6H, 0 l 15:33: Refill(s) Dorsey 00 ondansetron 2017-06 No 4 mg = 1 Me moria 4 mg oral 0-11 tab, PO, l tablet 15:33: Q12H, 0 Dorsey 00 Refill(s) Famotidine 2017-06 No 20 mg = 1 Me moria 0-11 tab, PO, l 15:33: Q12H, 0 Dorsey 00 Refill(s) Ciprofloxac 2017-06 No 500 mg, Mem oria in 0-11 PO, Q12H, l 15:33: 0 Dorsey 00 Refill(s) hydrOXYzine 2017-06 No 25 mg, PO, Memoria hydrochlori 0-11 Q6H, 0 l de 15:33: Refill(s) Dorsey 00 Vital Signs Vital Name Observation Time Observation Value Comments Source Heart Rate 2018-03-16 15:31:00 [facility] Weight 2018-03-16 15:31:00 [facility] Height 2018-03-16 15:31:00 180.34 cm [facility] BMI Calculated 2018-03-16 15:31:00 Memori al Cal Systolic (mm Hg) 2018-03-16 15:31:00 Ming rial Dorsey Diastolic (mm Hg) 2018-03-16 15:31:00 Mem orial Dorsey Procedures This patient has no known procedures. Encounters Start End Encounter Admission Attending Care Care Encounter Source Date/Time Date/Time Type Type Clinicians Facility Department ID 2018-05-26 2018-05-28 Outside nullFlavo MNA [id number] Memoria 16:20:00 05:59:59 Medical r Neurology 02 l Records [place] 2018-05-26 2018-05-27 Outpatient MHMISCHER MHMISCHER [id number] 10:20:00 23:59:59 02 2018-04-21 2018-04-21 Ambulatory nullFlavo MNA [id number] Memoria 17:15:00 17:15:00 Pre-Reg r Neurology 01 l Payal Mccall 2018-04-21 2018-04-21 Outpatient MHIE GALO [id number] Memoria 11:15:00 11:15:00 01 miguel angel Mccall 2018-04-21 2018-04-21 Outpatient Bong MHMISCHER MHMISCHER [id number] 11:15:00 11:15:00 Bebeto Marquis 2018-03-22 2018-03-24 Outside nullFlavo MNA [id number] Memoria 22:51:00 04:59:59 Medical r Neurology 01 l Mandi Ranburnepaula Cortésann 2018-03-22 2018-03-24 Phone nullFlavo MNA [id number] Memoria 21:22:00 04:59:59 Message r Neurology 00 l Payal Mccall 2018-03-22 2018-03-23 Outpatient MHMISCHER MHMISCHER [id number] 17:51:00 23:59:59 01 2018-03-22 2018-03-23 Outpatient MHMISCHER MHMISCHER [id number] 16:22:00 23:59:59 00 2018-03-16 2018-03-17 Outpatient nullFlavo MNA [id number] Memoria 16:00:00 04:59:59 r Neurology 00 l Payal Mccall 2018-03-16 2018-03-16 Outpatient Bong, MHMISCHER MHMISCHER [id number] 11:00:00 23:59:59 Bebeto 00 Benitez 2018-03-16 2018-03-16 Outpatient MHIE MHIE [id number] Memoria 11:00:00 11:00:00 00 miguel angel Mccall Results This patient has no known results.
--- NOTE | 2021-02-01 15:03 | ER ---
Nurse's Notes [facility] Name: Juan Campos Age: 45 yrs Sex: Male : 1975 Arrival Date: 02/01/2021 Time: 13:46 Bed Waiting Private MD: Diagnosis: Other otitis externa, left ear;Otitis media, unspecified, left ear Presentation: 02/01 14:00 Chief complaint: Patient states: L ear pain x 3 days. Coronavirus screen: Client denies ss travel out of the [place] in the last 14 days. Ebola Screen: Patient denies exposure to infectious person. Patient denies travel to an Ebola-affected area in the 21 days before illness onset. Initial Sepsis Screen: Does the patient meet any 2 criteria? No. Patient's initial sepsis screen is negative. Does the patient have a suspected source of infection? No. Patient's initial sepsis screen is negative. Risk Assessment: Do you want to hurt yourself or someone else? Patient reports no desire to harm self or others. Onset of symptoms was January 29, 2021. 14:00 Method Of Arrival: Ambulatory ss 14:00 Acuity: [place] 5 ss Historical: - Allergies: 14:01 NKA; ss - PMHx: 14:01 Anxiety; Bipolar disorder; ss - Immunization history:: Client reports receiving the 2nd dose of the Covid vaccine. - Social history:: Smoking status: Patient denies any tobacco usage or history of. Screenin:00 Abuse screen: Denies threats or abuse. Denies injuries from another. Nutritional ss screening: No deficits noted. Tuberculosis screening: Never had TB. Fall Risk None identified. Assessment: 15:00 General: Appears in no apparent distress. comfortable, Behavior is calm, cooperative, ss Denies fever, feeling ill, fatigue, chills. Neuro: Level of Consciousness is awake, alert, obeys commands, Oriented to person, place, time, situation. Cardiovascular: Capillary refill < 3 seconds is brisk in bilateral fingers. Respiratory: Airway is patent Respiratory effort is even, unlabored, Respiratory pattern is regular, symmetrical, Denies cough, pain with respiration, pain with cough, pain with movement. EENT: Ear canal swelling noted. Reports pain in left ear. Derm: Skin is intact, is healthy with good turgor, Skin is pink, warm \T\ dry. normal. Vital Signs: 14:00 Weight 90.26 kg; Height 5 ft. 9 in. (175.26 cm); Pain 9/10; ss 14:01 BP 101 / 80; Pulse 95; Resp 16; Temp 98.5(TE); Pulse Ox 99% ; ss 14:00 Body Mass Index 29.39 (90.26 kg, 175.26 cm) ED Course: 13:46 Patient arrived in ED. ds1 14:01 Triage completed. ss 14:01 Arm band placed on right wrist. ss 14:22 [facility] kb 14:22 Rafael Carter MD is Attending Physician. kb 14:59 Shivani Carvalho, DRAKE is Primary Nurse. ss 15:00 Patient has correct armband on for positive identification. Bed in low position. Call ss light in reach. 15:00 No provider procedures requiring assistance completed. Patient did not have IV access ss during this emergency room visit. Administered Medications: No medications were administered Outcome: 15:02 Discharge ordered by MD. kb 15:14 Discharged to home ambulatory. ss 15:14 Condition: good 15:14 Discharge instructions given to patient, Instructed on discharge instructions, follow up and referral plans. medication usage, Demonstrated understanding of instructions, follow-up care, medications, Prescriptions given X 2. 15:14 Patient left the ED. ss Signatures: Katherin Garcia FNP-C [employer]-Bandar ConnellyGricel austin ds1 Shivani aCrvalho RN RN
--- NOTE | 2021-02-01 15:03 | EDPHYS ---
Physician Documentation [facility] Name: Juan Campos Age: 45 yrs Sex: Male : 1975 Arrival Date: 02/01/2021 Time: 13:46 Bed Waiting Private MD: ED Physician Rafael Carter HPI: 02/01 15:05 This 45 yrs old Male presents to ER via Ambulatory with complaints of Ear kb Pain. 15:05 The patient presents with pain. The complaints affect the left ear. Onset: The kb symptoms/episode began/occurred 3 day(s) ago. Modifying factors: The symptoms are alleviated by nothing, the symptoms are aggravated by nothing. Associated signs and symptoms: The patient has no apparent associated signs or symptoms. Severity of symptoms: At their worst the symptoms were moderate in the emergency department the symptoms are unchanged. The patient has not experienced similar symptoms in the past. The patient has not recently seen a physician. Historical: - Allergies: 14:01 NKA; ss - PMHx: 14:01 Anxiety; Bipolar disorder; ss - Immunization history:: Client reports receiving the 2nd dose of the Covid vaccine. - Social history:: Smoking status: Patient denies any tobacco usage or history of. ROS: 15:05 Constitutional: Negative for fever, chills, and weight loss. kb 15:05 ENT: Positive for ear pain. 15:05 All other systems are negative. Exam: 15:04 Constitutional: This is a well developed, well nourished patient who is awake, alert, kb and in no acute distress. Head/Face: Normocephalic, atraumatic. Respiratory: Respirations even and unlabored. No increased work of breathing, no retractions or nasal flaring. Skin: Warm, dry with normal turgor. Normal color. MS/ Extremity: Pulses equal, no cyanosis. Neurovascular intact. Full, normal range of motion. Neuro: Awake and alert, GCS 15, oriented to person, place, time, and situation. Moves all extremities. Normal gait. Psych: Awake, alert, with orientation to person, place and time. Behavior, mood, and affect are within normal limits. 15:04 ENT: Ear canal(s): swelling, of the left canal, TM's: erythema, that is moderate, on the left. Vital Signs: 14:00 Weight 90.26 kg; Height 5 ft. 9 in. (175.26 cm); Pain 9/10; ss 14:01 BP 101 / 80; Pulse 95; Resp 16; Temp 98.5(TE); Pulse Ox 99% ; ss 14:00 Body Mass Index 29.39 (90.26 kg, 175.26 cm) MDM: 15:02 Patient medically screened. kb 15:04 Data reviewed: vital signs, nurses notes. Data interpreted: Pulse oximetry: on room air kb is 99 %. Interpretation: normal. Counseling: I had a detailed discussion with the patient and/or guardian regarding: the historical points, exam findings, and any diagnostic results supporting the discharge/admit diagnosis, the need for outpatient follow up, a family practitioner, to return to the emergency department if symptoms worsen or persist or if there are any questions or concerns that arise at home. Administered Medications: No medications were administered Disposition Summary: 02/01/21 15:02 Discharge Ordered Location: Home kb Condition: Stable kb Diagnosis - Other otitis externa, left ear kb - Otitis media, unspecified, left ear kb Followup: kb - With: Emergency Department - When: As needed - Reason: Worsening of condition Followup: kb - With: Private Physician - When: 2 - 3 days - Reason: Recheck today's complaints, Continuance of care, Re-evaluation by your physician Discharge Instructions: - Discharge Summary Sheet kb - Otitis Externa, [id number] kb - Otitis Media, Adult, [id number] kb - Ear Drops, Adult, [id number] kb Forms: - Medication Reconciliation Form kb - Thank You Letter kb - Antibiotic Education kb - Prescription Opioid Use kb Prescriptions: - Amoxicillin 875 mg Oral Tablet - take 1 tablet by ORAL route every 12 hours for 10 days; 20 tablet; Refills: 0, kb Product Selection Permitted - Cortisporin-TC 3.3-3-10-0.5 mg/mL Otic Suspension - instill 4 drops by OTIC route every 6 hours; 1 bottle; Refills: 0, Product kb Selection Permitted Addendum: 02/03/2021 19:10 Co-signature as Attending Physician, Rafael castorena Signatures: Katherin Garcia, ROXIE-C ROXIE-Shivani Helton RN RN Daksha Mccartyd, MD ma2
[2021-02-01 15:20] VITALS: BP 101/80; TEMP 98.5; O2SAT 99
== END 2021-02-01 15:14 | disposition home or self-care (01) ==
LOC: ER 13:45
DX: H66.92 Otitis media, unspecified, left ear (principal); H60.8X2 Other otitis externa, left ear
CPT/HCPCS: 99282

== ENCOUNTER 2021-03-10 20:41 | Emergency (ER) | payer OTHER ==
[2021-03-10] MEDS ORDERED: KETOROLAC 30 MG/ML INJ ONE (22:11)
[2021-03-10] MEDS ORDERED: CYCLOBENZAPRINE 10 MG TAB ONE (22:11)
[2021-03-10] MEDS ORDERED: LIDOCAINE 4% PATCH ONE (22:11)
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
[2021-03-10 23:12] VITALS: BP 129/87; TEMP 98.3; O2SAT 100
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
== END 2021-03-10 22:55 | disposition home or self-care (01) ==
LOC: ER 20:41
DX: S63.591A Other specified sprain of right wrist, initial encounter (principal); S29.012A Strain of muscle and tendon of back wall of thorax, initial encounter; X50.9XXA Other and unspecified overexertion or strenuous movements or postures, initial encounter
CPT/HCPCS: 71046; 96372; 99283

== ENCOUNTER 2021-04-15 15:47 | Emergency (ER) | payer OTHER ==
[2021-04-15] MEDS ORDERED: ONDANSETRON 4 MG/2 ML VIAL ONE (16:53)
[2021-04-15] MEDS ORDERED: KETOROLAC 30 MG/ML INJ ONE (16:53)
[2021-04-15] MEDS ORDERED: NA CHLORIDE 0.9% 1,000 ML ONE (16:53)
[2021-04-15 17:00] LABS: Absolute Lymphocytes (CBC) 2.9 K/uL (0.7-4.9); Basophils % 0.6 % (0-1.3); Hematocrit 41.2 % (39.6-49.0); Lymphocytes % 40.5 % (15.3-44.8); MPV 8.2 fL (7.6-11.3)
[2021-04-15 17:05] LABS: Urine Blood Negative (Negative); Urine Glucose Negative (Negative); Urine Protein Negative (Negative); Urine Specific Gravity 1.025 (1.005-1.030); Urine pH 5.5 (5.0-7.0)
[2021-04-15 17:16] LABS: Albumin 3.7 g/dL (3.4-5.0); Bilirubin Direct 0.1 mg/dL (0-0.2); Bilirubin Total 0.5 mg/dL (0.2-1.0); Protein, Total 7.6 g/dL (6.4-8.2)
[2021-04-15 17:25] LABS: Urine Bacteria <20 /HPF (NONE SEEN); Urine RBC <5 /HPF (NONE SEEN)
--- NOTE | 2021-04-15 18:17 | RAD REPORT ---
EXAM DESCRIPTION: CT - Stone Protocol - 04/15/2021 6:00 pm CLINICAL HISTORY: Flank pain. FLANK PAIN COMPARISON: Abdomen Pelvis W Contrast dated 03/04/2018 TECHNIQUE: Axial images were obtained without oral or IV contrast. Lack of contrast limits solid org an and vascular assessment. The [id number] spans the entirety of the system partially obscuring uppermost abdomen and lung bases. Coronal reformatted images were obtained and reviewed. All CT scans are performed using dose optimization technique as appropriate and may include automated exposure control or mA/KV adjustment according to patient size. FINDINGS: The lower lung hood are clear. Imaged portions of the liver and spleen show no suspicious findings on non-contrast imaging.Benign li era cysts are noted. The pancreas and adrenal glands are normal. No pathologic lymphadenopathy in the abdomen or pelvis. No urinary tract stones or obstructive uropathy. No bowel obstruction, free air, free fluid or abscess. Normal appendix noted. Mild L5-S1 spondylosis. IMPRESSION: No urinary tract stones or obstructive uropathy.
--- NOTE | 2021-04-15 19:22 | ER ---
Nurse's Notes [facility] Name: Juan Campos Age: 45 yrs Sex: Male : 1975 Arrival Date: 04/15/2021 Time: 15:53 Bed 3 Private MD: Diagnosis: Abdominal pain, unspecified;Dysuria Presentation: 04/15 16:28 Chief complaint: Patient states: araceli flank pain that began 2-3 days ago, pt also states aa5 "It hurts to pee as well". Pt denies nausea/vomiting/diarrhea. 16:28 Coronavirus screen: At this time, the client does not indicate any symptoms associated aa5 with coronavirus-19. Ebola Screen: No symptoms or risks identified at this time. Initial Sepsis Screen: Does the patient meet any 2 criteria? No. Patient's initial sepsis screen is negative. Does the patient have a suspected source of infection? No. Patient's initial sepsis screen is negative. Risk Assessment: Do you want to hurt yourself or someone else? Patient reports no desire to harm self or others. Onset of symptoms was April 2021. 16:28 Acuity: [place] 3 aa5 16:28 Method Of Arrival: Ambulatory aa5 Historical: - Allergies: 16:38 NKA; aa5 - PMHx: 16:38 Anxiety; Bipolar disorder; aa5 - PSHx: 16:38 right inguinal hernia; aa5 - Immunization history:: Client reports receiving the 2nd dose of the Covid vaccine. - Social history:: Smoking status: Patient denies any tobacco usage or history of. Screenin:46 Abuse screen: Denies threats or abuse. Nutritional screening: No deficits noted. aa5 Tuberculosis screening: No symptoms or risk factors identified. Fall Risk None identified. Assessment: 16:40 General: Appears uncomfortable, Behavior is calm, cooperative. Pain: Complains of pain aa5 in araceli flank Pain currently is 8 out of 10 on a pain scale. Neuro: Level of Consciousness is awake, alert, obeys commands, Oriented to person, place, time, situation. Cardiovascular: Patient's skin is warm and dry. Respiratory: Airway is patent Respiratory effort is even, unlabored, Respiratory pattern is regular, symmetrical. GI: Abdomen is flat, non-distended, Bowel sounds present X 4 quads. Abd is soft and non tender X 4 quads. Patient currently denies diarrhea, nausea, vomiting. : Reports pain with urination. EENT: No signs and/or symptoms were reported regarding the EENT system. Derm: Skin is pink, warm \\T\\ dry. Musculoskeletal: Range of motion: intact in all extremities. 17:25 Reassessment: Pt resting in bed with eyes closed, pt appears comfortable, pt easy to aa5 arouse to verbal stimuli, pt states pain is improved. . 18:40 Reassessment: Pt resting in bed with eyes closed, respirations even and unlabored, skin aa5 is pink/warm/dry. . Vital Signs: 16:28 BP 114 / 88; Pulse 71; Resp 18 S; Temp 97.6(O); Pulse Ox 100% on R/A; Weight 83.91 kg aa5 (R); Height 6 ft. 0 in. (182.88 cm) (R); Pain 8/10; 17:28 BP 108 / 82; Pulse 74; Resp 16 S; Pulse Ox 98% on R/A; aa5 19:45 BP 144 / 99; Pulse 80; Resp 18; Temp 98.0; Pulse Ox 100% on R/A; Pain 8/10; dc2 16:28 Body Mass Index 25.09 (83.91 kg, 182.88 cm) aa5 ED Course: 15:53 Patient arrived in ED. mr 16:28 Arm band placed on Patient placed in an exam room, on a stretcher. aa5 16:28 Patient has correct armband on for positive identification. Bed in low position. Call aa5 light in reach. Side rails up X2. Pulse ox on. NIBP on. 16:30 Sue Diaz RN is Primary Nurse. aa5 16:35 Bhavesh Silva PA is PHCP. cp 16:35 Rafael Carter MD is Attending Physician. cp 16:38 Triage completed. aa5 16:45 Initial lab(s) drawn, by me, sent to lab. Inserted saline lock: 20 gauge in right aa5 antecubital area, using aseptic technique. Blood collected. 18:00 CT Stone Protocol In Process Unspecified. EDMS 19:10 Report given to DRAKE Ceron. aa5 19:53 No provider procedures requiring assistance completed. dc2 19:53 IV discontinued, intact, bleeding controlled, No redness/swelling at site. Pressure dc2 dressing applied. Administered Medications: 16:56 Drug: Zofran (Ondansetron) 4 mg Route: IVP; Site: right antecubital; aa5 17:15 Follow up: Response: No adverse reaction aa5 16:58 Drug: NS 0.9% 1000 ml Route: IV; Rate: 1 bolus; Site: right antecubital; aa5 19:00 Follow up: IV Status: Completed infusion; IV Intake: 1000ml dc2 16:58 Drug: Ketorolac 15 mg Route: IVP; Site: right antecubital; aa5 17:15 Follow up: Response: No adverse reaction aa5 19:44 Drug: Rocephin (cefTRIAXone) 250 mg Route: IM; Site: left ventrogluteal; dc2 19:53 Follow up: Response: No adverse reaction dc2 19:44 Drug: Zithromax (azithromycin) 1 grams Route: PO; dc2 19:53 Follow up: Response: No adverse reaction dc2 Intake: 19:00 IV: 1000ml; Total: 1000ml. dc2 Outcome: 19:21 Discharge ordered by . cp 19:53 Discharged to home ambulatory. dc2 19:53 Condition: stable 19:53 Discharge instructions given to patient, Instructed on discharge instructions, follow up and referral plans. Demonstrated understanding of instructions, follow-up care. 19:54 Patient left the ED. dc2 Signatures: Dispatcher [employer] DARVIN Tom Radha DiazSue RN RN aa5 Bhavesh Silva PA PA cp Charters, Denise, RN RN dc2
--- NOTE | 2021-04-15 19:22 | EDPHYS ---
Physician Documentation [facility] Name: Juan Campos Age: 45 yrs Sex: Male : 1975 Arrival Date: 04/15/2021 Time: 15:53 Bed 3 Private MD: ED Physician Rafael Carter HPI: 04/15 16:50 This 45 yrs old Male presents to ER via Ambulatory with complaints of Flank cp Pain. 16:50 The patient complains of pain in the left flank and right flank. The pain radiates to cp the abdomen. Onset: The symptoms/episode began/occurred 2 day(s) ago. Associated signs and symptoms: Pertinent positives: dysuria. 16:50 Severity of pain: in the emergency department the pain is unchanged despite home cp interventions. Historical: - Allergies: 16:38 NKA; aa5 - PMHx: 16:38 Anxiety; Bipolar disorder; aa5 - PSHx: 16:38 right inguinal hernia; aa5 - Immunization history:: Client reports receiving the 2nd dose of the Covid vaccine. - Social history:: Smoking status: Patient denies any tobacco usage or history of. ROS: 17:00 Back: Positive for flank pain, bilaterally. cp 17:00 Constitutional: Negative for body aches, chills, fever, poor PO intake. cp 17:00 : Positive for burning with urination, Negative for hematuria, difficulty urinating, penile discharge, penile pain, testicular pain 17:00 Eyes: Negative for injury, pain, redness, and discharge. cp 17:00 ENT: Negative for ear pain, sore throat, difficulty swallowing, difficulty handling secretions. 17:00 Cardiovascular: Negative for chest pain. 17:00 Respiratory: Negative for cough, shortness of breath, wheezing. 17:00 Abdomen/GI: Positive for abdominal pain, Negative for vomiting, diarrhea, constipation, anorexia. 17:00 Neuro: Negative for altered mental status, headache, weakness. 17:00 All other systems are negative. cp Exam: 17:05 Constitutional: The patient appears in no acute distress, alert, awake, non-toxic, well cp developed, well nourished. 17:05 Head/Face: Normocephalic, atraumatic. cp 17:05 Eyes: Periorbital structures: appear normal, Conjunctiva: normal, no exudate, no injection, Sclera: no appreciated abnormality, Lids and lashes: appear normal, bilaterally. 17:05 ENT: External ear(s): are unremarkable, Nose: is normal, Mouth: Lips: moist, Oral mucosa: moist, Posterior pharynx: Airway: no evidence of obstruction, patent. 17:05 Chest/axilla: Inspection: normal, Palpation: is normal, no crepitus, no tenderness. 17:05 Cardiovascular: Rate: normal, Rhythm: regular. 17:05 Respiratory: the patient does not display signs of respiratory distress, Respirations: normal, no use of accessory muscles, no retractions, labored breathing, is not present, Breath sounds: are clear throughout, no decreased breath sounds, no stridor, no wheezing. 17:05 Abdomen/GI: Inspection: abdomen appears normal, Bowel sounds: active, all quadrants, Palpation: soft, in all quadrants, mild abdominal tenderness, in the anterior aspect of left lateral abdomen and anterior aspect of right lateral abdomen, rebound tenderness, is not appreciated, involuntary guarding, is not appreciated. 17:05 Back: CVA tenderness, is absent. 17:05 Skin: cellulitis, is not appreciated, no rash present. 17:05 Neuro: Orientation: to person, place \T\ time. Mentation: is normal. Vital Signs: 16:28 BP 114 / 88; Pulse 71; Resp 18 S; Temp 97.6(O); Pulse Ox 100% on R/A; Weight 83.91 kg aa5 (R); Height 6 ft. 0 in. (182.88 cm) (R); Pain 8/10; 17:28 BP 108 / 82; Pulse 74; Resp 16 S; Pulse Ox 98% on R/A; aa5 19:45 BP 144 / 99; Pulse 80; Resp 18; Temp 98.0; Pulse Ox 100% on R/A; Pain 8/10; dc2 16:28 Body Mass Index 25.09 (83.91 kg, 182.88 cm) aa5 MDM: 16:48 Patient medically screened. cp 17:00 Differential diagnosis: nephrolithiasis, pyelonephritis, UTI, testicular torsion, cp diverticulitis, pancreatitis. 19:18 ED course: Vital signs stable. Pain improved. Discussed results of labs urine and cp radiology studies. Patient reports he has noticed some discharge from his penis, reported some dysuria initially during the interview, and does have concern for possible STDs. Patient reports he is , but we will go ahead and treat prophylactically for gonorrhea and chlamydia and discharged to home for continued monitoring. 19:20 Data reviewed: vital signs, nurses notes, lab test result(s), radiologic studies, CT cp scan. 19:20 Counseling: I had a detailed discussion with the patient and/or guardian regarding: the cp historical points, exam findings, and any diagnostic results supporting the discharge/admit diagnosis, lab results, radiology results, to return to the emergency department if symptoms worsen or persist or if there are any questions or concerns that arise at home. Special discussion: Based on the patient's Hx, exam, and Dx evaluation, there is no indication for emergent surgery or inpatient Tx. It is understood by the patient/guardian that if the Sx's persist or worsen they need to return immediately for re-evaluation. 04/15 16:44 Order name: Basic Metabolic Panel; Complete Time: 17:31 cp 04/15 18:47 Interpretation: Normal except: CL 109; GFR 80. cp 04/15 16:44 Order name: CBC with Diff; Complete Time: 17:31 cp 04/15 18:47 Interpretation: Normal except: PLT 135; EOSINOPHIL % 6.3. cp 04/15 16:44 Order name: Hepatic Function; Complete Time: 17:31 cp 04/15 16:44 Order name: Lipase; Complete Time: 17:31 cp 04/15 16:44 Order name: Urine Microscopic Only; Complete Time: 17:31 cp 04/15 16:49 Order name: CK; Complete Time: 17:31 cp 04/15 16:49 Order name: Magnesium; Complete Time: 17:31 cp 04/15 17:05 Order name: Urine Dipstick-Ancillary; Complete Time: 17:31 EDMS 04/15 17:35 Order name: CT Stone Protocol; Complete Time: 18:46 cp 04/15 16:44 Order name: IV Saline Lock; Complete Time: 16:45 cp 04/15 16:44 Order name: Labs collected and sent; Complete Time: 16:45 cp 04/15 16:44 Order name: Urine Dipstick-Ancillary (obtain specimen); Complete Time: 17:05 cp Administered Medications: 16:56 Drug: Zofran (Ondansetron) 4 mg Route: IVP; Site: right antecubital; aa5 17:15 Follow up: Response: No adverse reaction aa5 16:58 Drug: NS 0.9% 1000 ml Route: IV; Rate: 1 bolus; Site: right antecubital; aa5 19:00 Follow up: IV Status: Completed infusion; IV Intake: 1000ml dc2 16:58 Drug: Ketorolac 15 mg Route: IVP; Site: right antecubital; aa5 17:15 Follow up: Response: No adverse reaction aa5 19:44 Drug: Rocephin (cefTRIAXone) 250 mg Route: IM; Site: left ventrogluteal; dc2 19:53 Follow up: Response: No adverse reaction dc2 19:44 Drug: Zithromax (azithromycin) 1 grams Route: PO; dc2 19:53 Follow up: Response: No adverse reaction dc2 Disposition Summary: 04/15/21 19:21 Discharge Ordered Location: Home cp Problem: new cp Symptoms: have improved cp Condition: Stable cp Diagnosis - Abdominal pain, unspecified cp - Dysuria cp Followup: cp - With: Private Physician - When: 2 - 3 days - Reason: Recheck today's complaints Discharge Instructions: - Discharge Summary Sheet cp - Abdominal Pain, Adult cp - Chlamydia, Male cp - Gonorrhea cp Forms: - Medication Reconciliation Form cp - Thank You Letter cp - Antibiotic Education cp - Prescription Opioid Use cp Prescriptions: - Zofran 4 mg Oral Tablet - take 1 tablet by ORAL route every 12 hours As needed; 20 tablet; Refills: 0, cp Product Selection Permitted Addendum: 04/20/2021 06:38 Co-signature as Attending Physician, Rafael Carter MD PA/ORTHODONTIC BAND MAKER's history reviewed, m a2 patient interviewed, and examined. I agree with assessment and care plan and confirm the diagnosis (es) above. Signatures: Dispatcher [employer] EDMS Sue Diaz RN RN aa5 Bhavesh Silva PA PA cp Alzahri, Mohammad, MD MD ma2 Crescencio, DRAKE Peters RN dc2 Corrections: (The following items were deleted from the chart) 04/15 19:22 19:21 Unspecified sexually transmitted disease cp cp 04/16 15:53 04/15 16:50 Onset: The symptoms/episode began/occurred yesterday, cp cp
[2021-04-15] MEDS ORDERED: AZITHROMYCIN 250 MG TAB ONE (19:39)
[2021-04-15] MEDS ORDERED: CEFTRIAXONE 1000 MG/VIAL ONE (19:39)
[2021-04-15 20:10] VITALS: BP 144/99; TEMP 98; O2SAT 100
--- OUTSIDE RECORDS SUMMARY | 2021-04-18 19:56 | XMS REPORT | Continuity of Care Document ---
:1975 Author Organization [facility] t Address [address] [place] [address] Care Team Providers Name Role Phone Unavailable Unavailable Unavailable Problems Condition Condition Condition Status Onset Resolution Last Treating Co mments Source Name Details Category Date Date Treatment Clinician Date Paresthesi Problem Active 2018-12-15 M emoria a 11:44:54 l (finding) [place] Paresthesi a (finding) Active Problem 12/15/2018 [facility] Stomach Problem Active 2018-12-15 Ming shelia ache 11:44:54 l (finding) Stomach Herm binu ache (finding) Active Problem 12/15/2018 [facility] Allergies, Adverse Reactions, Alerts This patient has no known allergies or adverse reactions. Social History Smoking Status Start Date Stop Date Source Social History [facility] Medications Ordered Filled Start Stop Current Ordering Indication Dosage Frequency Signature Comments Components Source Medication Medication Date Date Medication? Clinician (SIG) Name Name Omeprazole 2017-06 No 40 mg, PO, M emoria 0-11 Daily, 0 l 15:33: Refill(s) [place] 00 Dicyclomine 2017-06 No 20 mg, PO, Memoria 0-11 Q6H, 0 l 15:33: Refill(s) [place] 00 ondansetron 2017-06 No 4 mg = 1 Me moria 4 mg oral 0-11 tab, PO, l tablet 15:33: Q12H, 0 [place] 00 Refill(s) Famotidine 2017-06 No 20 mg = 1 Me moria 0-11 tab, PO, l 15:33: Q12H, 0 [place] 00 Refill(s) Ciprofloxac 2017-06 No 500 mg, Mem oria in 0-11 PO, Q12H, l 15:33: 0 [place] 00 Refill(s) hydrOXYzine 2017-06 No 25 mg, PO, Memoria hydrochlori 0-11 Q6H, 0 l de 15:33: Refill(s) [place] 00 Metronidazo 2017-06 No 500 mg = 1 Memoria le 0-11 tab, PO, l 15:33: Q6H, 0 [place] 00 Refill(s) Vital Signs Vital Name Observation Time Observation Value Comments Source [facility] 2018-03-16 15:31:00 [facility] Weight 2018-03-16 15:31:00 [facility] Height 2018-03-16 15:31:00 180.34 cm [facility] BMI Calculated 2018-03-16 15:31:00 Memori al [place] Systolic (mm Hg) 2018-03-16 15:31:00 Ming rial [place] Diastolic (mm Hg) 2018-03-16 15:31:00 Mem orial Cal Procedures This patient has no known procedures. Encounters Start End Encounter Admission Attending Care Care Encounter Source Date/Time Date/Time Type Type Clinicians Facility Department ID 2018-05-26 2018-05-28 Outside nullFlavo MNA [id number] Memoria 16:20:00 05:59:59 Medical r Neurology 02 l Records Payal Mccall 2018-04-21 2018-04-21 Ambulatory nullFlavo MNA [id number] Memoria 17:15:00 17:15:00 Pre-Reg r Neurology 01 l Payal Mccall 2018-03-22 2018-03-24 Outside nullFlavo MNA [id number] Memoria 22:51:00 04:59:59 Medical r Neurology 01 l Records Payal Mccall 2018-03-22 2018-03-24 Phone nullFlavo MNA [id number] Memoria 21:22:00 04:59:59 Message r Neurology 00 l Payal Mccall 2018-03-16 2018-03-17 Outpatient nullFlavo MNA [id number] Memoria 16:00:00 04:59:59 r Neurology 00 l Payal Mccall Results This patient has no known results.
== END 2021-04-15 19:54 | disposition home or self-care (01) ==
LOC: ER 15:47
DX: R10.9 Unspecified abdominal pain (principal); R30.0 Dysuria; F41.9 Anxiety disorder, unspecified; F31.9 Bipolar disorder, unspecified
CPT/HCPCS: 96361; 85025; 80048; 36415; 83735; 82550; 80076; 83690; 76377; 74176; 96375; 96372; 96374; 99284; J7030; J2405; 81003; 81015

== ENCOUNTER 2021-04-24 23:39 | Emergency (ER) | payer OTHER ==
--- OUTSIDE RECORDS SUMMARY | 2021-04-24 23:42 | XMS REPORT | Continuity of Care Document ---
:1975 Author Organization [facility] t Address [address] [place] [address] Care Team Providers Name Role Phone Unavailable Unavailable Unavailable Problems Condition Condition Condition Status Onset Resolution Last Treating Co mments Source Name Details Category Date Date Treatment Clinician Date Paresthesi Problem Active 2018-12-15 M emoria a 11:44:54 l (finding) [place] Paresthesi a (finding) Active Problem 12/15/2018 [facility] Stomach Problem Active 2018-12-15 Ming shelia ache 11:44:54 l (finding) Stomach Herm binu ache (finding) Active Problem 12/15/2018 [facility] Allergies, Adverse Reactions, Alerts This patient has no known allergies or adverse reactions. Social History Smoking Status Start Date Stop Date Source Social History [facility] Medications Ordered Filled Start Stop Current Ordering [...] 0-11 tab, PO, l 15:33: Q12H, 0 [place] 00 Refill(s) Ciprofloxac 2017-06 No 500 mg, Mem oria in 0-11 PO, Q12H, l 15:33: 0 [place] 00 Refill(s) hydrOXYzine 2017-06 No 25 mg, PO, Memoria hydrochlori 0-11 Q6H, 0 l de 15:33: Refill(s) [place] 00 Metronidazo 2017-06 No 500 mg = 1 Memoria le 0-11 tab, PO, l 15:33: Q6H, 0 [place] 00 Refill(s) Vital Signs Vital Name Observation Time Observation Value Comments Source Heart Rate 2018-03-16 15:31:00 [facility] Weight 2018-03-16 15:31:00 [facility] Height 2018-03-16 15:31:00 180.34 cm [facility] BMI Calculated 2018-03-16 15:31:00 Memori al [place] Systolic (mm Hg) 2018-03-16 15:31:00 Ming rial [place] Diastolic (mm Hg) 2018-03-16 15:31:00 Mem orial Cal Procedures This patient has no known procedures. Encounters Start End Encounter Admission Attending Care Care Encounter Source Date/Time Date/Time Type Type Clinicians Facility Department ID 2018-05-26 2018-05-28 Outside nullFlavo MNA [id number] Memoria 16:20:00 05:59:59 Medical r Neurology 02 l Records Payal Mccall 2018-04-21 2018-04-21 Ambulatory nullFlavo MNA [id number] Memoria 17:15:00 17:15:00 Pre-Reg r Neurology 01 l Payal Mccall 2018-03-22 2018-03-24 Outside nullFlavo MNA [id number] Memoria 22:51:00 04:59:59 Medical r Neurology 01 l Records Payal Mccall 2018-03-22 2018-03-24 Phone nullFlavo MNA [id number] Memoria 21:22:00 04:59:59 Message r Neurology 00 l Payal Mccall 2018-03-16 2018-03-17 Outpatient nullFlavo MNA [id number] Memoria 16:00:00 04:59:59 r Neurology 00 l Payal Mccall Results This patient has no known results.
[2021-04-25 00:50] LABS: Urine Blood Negative (Negative); Urine Glucose Negative (Negative); Urine Protein Negative (Negative); Urine Specific Gravity 1.025 (1.005-1.030)
[2021-04-25 01:00] LABS: Absolute Lymphocytes (CBC) 3.1 K/uL (0.7-4.9); Basophils % 0.8 % (0-1.3); Hematocrit 40.9 % (39.6-49.0); Lymphocytes % 44.8 % (15.3-44.8); MPV 8.5 fL (7.6-11.3); RBC Red Blood Cell Count 4.67 M/uL (4.33-5.43)
[2021-04-25 01:16] LABS: Albumin 3.5 g/dL (3.4-5.0); Bilirubin Direct 0.1 mg/dL (0-0.2); Bilirubin Total 0.5 mg/dL (0.2-1.0); Potassium 3.8 mmol/L (3.5-5.1); Protein, Total 7.1 g/dL (6.4-8.2)
[2021-04-25] MEDS ORDERED: DICYCLOMINE HCL 10 MG CAP ONE (01:31)
[2021-04-25] MEDS ORDERED: NA CHLORIDE 0.9% 1,000 ML ONE (01:31)
[2021-04-25] MEDS ORDERED: ONDANSETRON 4 MG/2 ML VIAL ONE (01:31)
--- NOTE | 2021-04-25 02:53 | ER ---
Nurse's Notes [facility] Name: Juan Campos Age: 45 yrs Sex: Male : 1975 Arrival Date: 04/24/2021 Time: 23:44 Bed 15 Private MD: Diagnosis: Nausea with vomiting, unspecified;Diarrhea, unspecified Presentation: 04/24 23:48 Chief complaint: Patient states: I was diagnosed with chlamydia and gonorrhea last ld1 week, I was told to come back if I was not feeling right. Pt reports nausea and "just not feeling right.". Coronavirus screen: At this time, the client does not indicate any symptoms associated with coronavirus-19. Ebola Screen: No symptoms or risks identified at this time. Initial Sepsis Screen: Does the patient meet any 2 criteria? No. Patient's initial sepsis screen is negative. Does the patient have a suspected source of infection? No. Patient's initial sepsis screen is negative. Risk Assessment: Do you want to hurt yourself or someone else? Patient reports no desire to harm self or others. Onset of symptoms was April 24, 2021. 23:48 Method Of Arrival: Ambulatory ld1 23:48 Acuity: [place] 4 ld1 Triage Assessment: 23:50 General: Appears in no apparent distress. comfortable, Behavior is cooperative, ld1 anxious. Pain: Denies pain. EENT: No signs and/or symptoms were reported regarding the EENT system. Neuro: Level of Consciousness is awake, alert, obeys commands, Oriented to person, place, time, situation, Appropriate for age. Cardiovascular: Capillary refill < 3 seconds Patient's skin is warm and dry. Respiratory: Airway is patent Respiratory effort is even, unlabored, Respiratory pattern is regular, symmetrical. GI: Abdomen is flat, non-distended, Reports nausea. : No signs and/or symptoms were reported regarding the genitourinary system. Derm: No signs and/or symptoms reported regarding the dermatologic system. Musculoskeletal: No signs and/or symptoms reported regarding the musculoskeletal system. Historical: - Allergies: 23:50 NKA; ld1 - Home Meds: 23:50 None [Active]; ld1 - PMHx: 23:50 Anxiety; Bipolar disorder; ld1 - PSHx: 23:50 right inguinal hernia; ld1 - Immunization history:: Adult Immunizations up to date, Client reports receiving the 2nd dose of the Covid vaccine. - Social history:: Smoking status: Patient denies any tobacco usage or history of. Patient/guardian denies using alcohol, street drugs. Screenin/20 01:45 Abuse screen: Denies threats or abuse. Denies injuries from another. Nutritional mr2 screening: No deficits noted. Tuberculosis screening: No symptoms or risk factors identified. Fall Risk None identified. Vital Signs: 04/24 23:48 BP 132 / 91; Pulse 70; Resp 22; Temp 98.2(O); Pulse Ox 100% on R/A; Weight 86.18 kg; ld1 Height 5 ft. 9 in. (175.26 cm); Pain 0/10; 04/25 02:18 BP 122 / 86; Pulse 66; Resp 17; Temp 98.4; Pulse Ox 99% on R/A; Weight 74.84 kg; Height mr2 5 ft. 10 in. (177.80 cm); Pain 3/10; 02:18 Body Mass Index 23.67 (74.84 kg, 177.80 cm) mr2 ED Course: 04/24 23:44 Patient arrived in ED. wm 23:50 Triage completed. ld1 23:50 Arm band placed on left wrist. ld1 23:53 Bhavesh Silva PA is PHCP. cp 23:53 Arnold Monteiro MD is Attending Physician. cp 04/25 00:35 Inserted saline lock: 18 gauge in right antecubital area, using aseptic technique. ds4 Blood collected. 01:29 Ayush Joseph, DRAKE is Primary Nurse. mr2 01:33 CT Abd/Pelvis - IV Contrast Only In Process Unspecified. EDMS 01:45 Patient has correct armband on for positive identification. Bed in low position. Call mr2 light in reach. Side rails up X2. 01:45 No provider procedures requiring assistance completed. mr2 02:52 Zbigniew Flores MD is Referral Physician. cp 03:22 IV discontinued, intact, bleeding controlled. mr2 Administered Medications: 01:35 Drug: Zofran (Ondansetron) 4 mg Route: IVP; Site: right antecubital; mr2 01:35 Drug: Bentyl (dicyclomine) 20 mg Route: PO; mr2 01:36 Drug: NS 0.9% 1000 ml Route: IV; Rate: 1 bolus; Site: right antecubital; mr2 Outcome: 02:52 Discharge ordered by MD. mercer 03:10 Discharged to home ambulatory. mr2 03:10 Condition: stable 03:10 Discharge instructions given to patient. 03:23 Patient left the ED. mr2 Signatures: Dispatcher [employer] EDMS Jatinder Metz ds4 Bhavesh Silva PA PA cp Dibbern, Lauren, RN RN ld1 Daina Plascencia Mike, RN RN mr2
--- NOTE | 2021-04-25 02:53 | EDPHYS ---
Physician Documentation [facility] Name: Juan Campos Age: 45 yrs Sex: Male : 1975 Arrival Date: 04/24/2021 Time: 23:44 Bed 15 Private MD: ED Physician Arnold Monteiro HPI: 04/25 00:15 This 45 yrs old Male presents to ER via Ambulatory with complaints of cp Nausea/Vomiting/Diarrhea. 00:15 The patient presents to the emergency department with nausea, that is moderate, cp vomiting, that is intermittent, diarrhea, that is intermittent, abdominal pain, of the abdomen diffusely, described as crampy, and does not radiate. Historical: - Allergies: 04/24 23:50 NKA; ld1 - Home Meds: 23:50 None [Active]; ld1 - PMHx: 23:50 Anxiety; Bipolar disorder; ld1 - PSHx: 23:50 right inguinal hernia; ld1 - Immunization history:: Adult Immunizations up to date, Client reports receiving the 2nd dose of the Covid vaccine. - Social history:: Smoking status: Patient denies any tobacco usage or history of. Patient/guardian denies using alcohol, street drugs. ROS: 04/25 00:20 Constitutional: Negative for body aches, chills, fever, poor PO intake. cp 00:20 Eyes: Negative for injury, pain, redness, and discharge. cp 00:20 ENT: Negative for ear pain, sore throat, difficulty swallowing, difficulty handling secretions. 00:20 Cardiovascular: Negative for chest pain. 00:20 Respiratory: Negative for cough, shortness of breath, wheezing. 00:20 Abdomen/GI: Positive for abdominal pain, nausea, vomiting, and diarrhea, Negative for hematemesis, black/tarry stool, rectal bleeding. 00:20 : Negative for urinary symptoms, testicular pain 00:20 Neuro: Negative for altered mental status, headache, weakness. 00:20 All other systems are negative. Exam: 00:25 Constitutional: The patient appears in no acute distress, alert, awake, non-toxic, well cp developed, well nourished. 00:25 Head/Face: Normocephalic, atraumatic. cp 00:25 Eyes: Periorbital structures: appear normal, Conjunctiva: normal, no exudate, no injection, Sclera: no appreciated abnormality, Lids and lashes: appear normal, bilaterally. 00:25 ENT: External ear(s): are unremarkable, Nose: is normal, Mouth: Lips: moist, Oral mucosa: moist, Posterior pharynx: Airway: no evidence of obstruction, patent. 00:25 Chest/axilla: Inspection: normal, Palpation: crepitus, is not appreciated, tenderness, is not appreciated. 00:25 Cardiovascular: Rate: normal, Rhythm: regular. 00:25 Respiratory: the patient does not display signs of respiratory distress, Respirations: normal, no use of accessory muscles, no retractions, labored breathing, is not present, Breath sounds: are clear throughout, no decreased breath sounds, no stridor, no wheezing. 00:25 Abdomen/GI: Inspection: abdomen appears normal, Bowel sounds: active, all quadrants, Palpation: soft, in all quadrants, mild abdominal tenderness, in all quadrants, rebound tenderness, is not appreciated, involuntary guarding, is not appreciated. 00:25 Back: pain, is absent, ROM is normal. Vital Signs: 04/24 23:48 BP 132 / 91; Pulse 70; Resp 22; Temp 98.2(O); Pulse Ox 100% on R/A; Weight 86.18 kg; ld1 Height 5 ft. 9 in. (175.26 cm); Pain 0/10; 04/25 02:18 BP 122 / 86; Pulse 66; Resp 17; Temp 98.4; Pulse Ox 99% on R/A; Weight 74.84 kg; Height mr2 5 ft. 10 in. (177.80 cm); Pain 3/10; 02:18 Body Mass Index 23.67 (74.84 kg, 177.80 cm) mr2 MDM: 00:05 Patient medically screened. cp 01:00 Differential diagnosis: gastritis, cholecystitis, pancreatitis, appendicitis, viral cp gastroenteritis, gastroenteritis. 02:50 Data reviewed: vital signs, nurses notes, lab test result(s), radiologic studies, CT cp scan. 02:50 Counseling: I had a detailed discussion with the patient and/or guardian regarding: the cp historical points, exam findings, and any diagnostic results supporting the discharge/admit diagnosis, lab results, radiology results, to return to the emergency department if symptoms worsen or persist or if there are any questions or concerns that arise at home. Response to treatment: the patient's symptoms have markedly improved after treatment, patient is well hydrated. VSS. Pain and nausea markedly improved. Patient tolerating po fluids. Will discharge to home for continued monitoring. 04/25 00:31 Order name: Basic Metabolic Panel; Complete Time: 02:14 cp 04/25 02:14 Interpretation: Normal except: CL 109; GFR 80. cp 04/25 00:31 Order name: CBC with Diff; Complete Time: 01:08 cp 04/25 01:08 Interpretation: Normal except: PLT 133; JENNIFER% 40.2; EOSINOPHIL % 8.2; EOSA 0.6. cp 04/25 00:31 Order name: Hepatic Function; Complete Time: 02:14 cp 04/25 02:14 Interpretation: Normal except: GLOB 3.6; A/G 1.0. cp 04/25 00:31 Order name: Lipase; Complete Time: 02:14 cp 04/25 02:15 Interpretation: Reviewed. 04/25 00:50 Order name: Urine Dipstick-Ancillary; Complete Time: 01:08 EDMS 04/25 01:08 Order name: CT Abd/Pelvis - IV Contrast Only cp 04/25 00:31 Order name: IV Saline Lock; Complete Time: 01:02 04/25 00:31 Order name: Labs collected and sent; Complete Time: 01:02 04/25 02:34 Order name: PO challenge cp Administered Medications: 01:35 Drug: Zofran (Ondansetron) 4 mg Route: IVP; Site: right antecubital; mr2 01:35 Drug: Bentyl (dicyclomine) 20 mg Route: PO; mr2 01:36 Drug: NS 0.9% 1000 ml Route: IV; Rate: 1 bolus; Site: right antecubital; mr2 Disposition Summary: 04/25/21 02:52 Discharge Ordered Location: Home cp Problem: new cp Symptoms: have improved cp Condition: Stable cp Diagnosis - Nausea with vomiting, unspecified cp - Diarrhea, unspecified cp Followup: cp - With: Zbigniew Flores MD - When: 2 - 3 days - Reason: Recheck today's complaints Discharge Instructions: - Discharge Summary Sheet cp - Food Choices to Help Relieve Diarrhea, Adult cp - Diarrhea, Adult cp - Nausea and Vomiting, Adult cp Forms: - Medication Reconciliation Form cp - Thank You Letter cp - Antibiotic Education cp - Prescription Opioid Use cp Prescriptions: - promethazine 25 mg Oral Tablet - take 1 tablet by ORAL route every 6 hours As needed; 20 tablet; Refills: 0, cp Product Selection Permitted - dicyclomine 20 mg Oral Tablet - take 1 tablet by ORAL route 4 times per day; 30 tablet; Refills: 0, Product cp Selection Permitted Addendum: 04/26/2021 06:52 Co-signature as Attending Physician, Arnold Monteiro MD. m Signatures: Dispatcher [employer] EDWY Bhavesh Silva PA PA cp Holmes, Maurice, MD MD [id number] Adelaida Sanders RN RN ld1 Ayush Joseph RN RN mr2
[2021-04-25 03:32] VITALS: BP 122/86; TEMP 98.4; O2SAT 99
--- NOTE | 2021-04-26 14:27 | RAD REPORT ---
EXAM DESCRIPTION: CT Abdomen and Pelvis With Intravenous Contrast CLINICAL HISTORY: The patient is 45 years old and is Male; ABD PAIN TECHNIQUE: Axial computed tomography images of the abdomen and pelvis with intravenous contrast. S agittal and coronal reformatted images were created and reviewed. This CT exam was performed using one or more of the following dose reduction techniques: automated exposure control, adjustment of t he mA and/or kV according to patient size, and/or use of iterative reconstruction technique. COMPARISON: CT abdomen and pelvis without contrast April 15, 2021. FINDINGS: Lung bases: Unremarkable. No mass. No consolidation. ABDOMEN: Liver: Stable cysts in the right liver. Gallbladder and bile ducts: Unremarkable. No calcified stones. No ductal dilation. Pancreas: Unremarkable. No mass. No ductal dilation. Spleen: Stable cyst in the anterolateral spleen. Adrenals: Unremarkable. No mass. Kidneys and ureters: Unremarkable. No solid mass. No hydronephrosis. Stomach and bowel: Unremarkable. No obstruction. No mucosal thickening. PELVIS: Appendix: No findings to suggest acute appendicitis. Bladder: Unremarkable. No mass. Reproductive: Unremarkable as visualized. ABDOMEN and PELVIS: Intraperitoneal space: Unremarkable. No free air. No significant fluid collection. Bones/joints: No acute fracture. No dislocation. Soft tissues: Unremarkable. Vasculature: Unremarkable. No abdominal aortic aneurysm. Lymph nodes: Unremarkable. No enlarged lymph nodes. IMPRESSION: No acute findings in the abdomen or pelvis. Electronically signed by: Javi Montalvo MD 04/25/2021 2:24 AM ADDICTION PSYCHIATRIST Due to temporary technical issues with the PACS/Fluency reporting system, reports are being signed by the in house radiologists without review as a courtesy to insure prompt reporting. The interpreting radiologist is fully responsible for the content of the report.
== END 2021-04-25 03:23 | disposition home or self-care (01) ==
LOC: ER 23:39
DX: R19.7 Diarrhea, unspecified (principal)
CPT/HCPCS: 85025; 80048; 36415; 80076; 81003; 83690; 74177; 96374; 99284; Q9967; J7030; J2405

== ENCOUNTER 2021-04-29 05:47 | Emergency (ER) | payer OTHER ==
--- OUTSIDE RECORDS SUMMARY | 2021-04-29 05:51 | XMS REPORT | Continuity of Care Document ---
:1975 Author Organization [facility] t Address [address] [place] [address] Care Team Providers Name Role Phone Pcp, Does Not Have A Primary Care Physician RED Attending Clinician Unavailable Red DO Attending Clinician Payers Payer Name Policy Type Policy Number Effective Date Expiration Date [facility] [id number] 2014 MEDICAID 00:00:00 Problems Condition Condition Condition Status Onset Resolution Last Treating Co mments Source Name Details Category Date Date Treatment Clinician Date Paresthesi Problem Active 2018-12-15 M emoria a 11:44:54 l (finding) Cal Paresthesi a (finding) Active Problem 12/15/2018 [facility] Stomach Problem Active 2018-12-15 Ming shelia ache 11:44:54 l (finding) Stomach Herm binu ache (finding) Active Problem 12/15/2018 [facility] Bipolar Bipolar Disease Active Overview: Univ ers disorder disorder Formattin ity of g of this [place] note Medical might be Branch different from the original. 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 SARS-CoV-2 [place] [facility] (event) Branch Alcohol intake 2018-05-26 2018-05-26 Current University of 00:00:00 00:00:00 non-drinker of [place] [facility] alcohol Branch (finding) Sex Ass[birth year] At [birth year] Universit y of 00:00:00 00:00:00 [facility] Smoking Status Start Date Stop Date Source Never smoker [facility] Social History [facility] Medications Ordered Filled Start Stop Current Ordering Indication Dosage Frequency Signature Comments Components Source Medication Medication Date Date Medication? Clinician (SIG) Name Name iopamidol 2020-06- No [id number] 120mL 120 mL, Univers (ISOVUE 06-27 Intravenou ity o f 370-500 mL) 17:15: 16:04 s, ONCE, 1 [place] injection 00 :00 dose, On Medica l [address] [facility] 04/27/21 at 1115, Routine ondansetron 2020-06- No 4mg 4 mg, Slow Univers (ZOFRAN 06-27 IV Push, ity of (PF)) 16:45: 15:45 ONCE, 1 [place] injection 4 00 :00 dose, On Medi faina mg [facility] 04/27/21 at 1045, Routine sucralfate 2020-06 Yes [id number] 1g Take 1 U nivers 1 gram -22 tablet by ity of tablet 00:00: mouth [place] 00 before Medical meals and Branch at bedtime. dicyclomine 2020-06 Yes [id number] 10mg Take 1 Univers (BENTYL) 10 - capsule by it y of mg capsule 00:00: mouth [place] 00 every 8 Medical (eight) Branch hours as needed for Abdominal pain. ondansetron 2020-06 Yes [id number] 4mg Take 1 Univers 4 mg -22 tablet by ity of disintegrat 00:00: mouth [place] ing tablet 00 every 8 Medica l (eight) Branch hours as needed for Nausea and Vomiting (N/V). omeprazole 2020-06- Yes [id number] 20mg Take 1 Univers 20 mg 06-27- capsule by ity of capsule 00:00: 05:59 mouth [place] 00 :00 daily for Medical 30 days. Branch nystatin Yes [id number] 206086Q Take 5 mL Univers 100,000 1-25 by mouth 4 ity of unit/mL 00:00: (four) [place] suspension 00 times Medical daily. Branch ondansetron Yes [id number] 4mg Take 1 Univers 4 mg tablet 1-25 tablet by ity of 00:00: mouth 00 every 8 Medical (eight) Branch hours as needed for Nausea and Vomiting (N/V). Famotidine 2017-06 No 20 mg = 1 Me moria 0-11 tab, PO, l 15:33: Q12H, 0 Cal 00 Refill(s) Ciprofloxac 2017-06 No 500 mg, Mem oria in 0-11 PO, Q12H, l 15:33: 0 [place] 00 Refill(s) hydrOXYzine 2017-06 No 25 mg, PO, Memoria hydrochlori 0-11 Q6H, 0 l de 15:33: Refill(s) Metronidazo 2017-06 No 500 mg = 1 Memoria le 0-11 tab, PO, l 15:33: Q6H, 0 [place] 00 Refill(s) Omeprazole 2017-06 No 40 mg, PO, M emoria 0-11 Daily, 0 l 15:33: Refill(s) Dicyclomine 2017-06 No 20 mg, PO, Memoria 0-11 Q6H, 0 l 15:33: Refill(s) ondansetron 2017-06 No 4 mg = 1 Me moria 4 mg oral 0-11 tab, PO, l tablet 15:33: Q12H, 0 Refill(s) omeprazole 2017-06- No Univer s 40 mg 0-05 11-22 ity of capsule 00:00: 00:00 [place] 00 :00 Medical Branch hydrocortis Yes 25mg Insert 1 Un nelida one 8-24 Suppositor ity of (ANUSOL-HC) 00:00: y [place] 25 mg 00 rectum 2 Medical suppository (two) Branch times daily. CALCIUM Yes Take by Univer s CARBONATE 3-02 mouth. ity of (CALCIUM 14:20: [place] 500 ORAL) 36 Medical Branch Vital Signs Vital Name Observation Time Observation Value Comments Source Systolic blood 2021-04-27 17:30:43 120 mm[Hg] Univer sity of pressure [facility] Diastolic blood 2021-04-27 17:30:43 75 mm[Hg] Unive rsity of pressure [facility] Heart rate 2021-04-27 17:30:43 70 /min [facility] Body temperature 2021-04-27 17:30:43 36.78 Carol [facility] Respiratory rate 2021-04-27 17:30:43 18 /min [facility] Oxygen saturation in 2021-04-27 17:30:43 100 /min [facility] Arterial blood by [facility] Pulse oximetry Branch Heart Rate 2018-03-16 15:31:00 [facility] Weight 2018-03-16 15:31:00 [facility] Height 2018-03-16 15:31:00 180.34 cm [facility] BMI Calculated 2018-03-16 15:31:00 Quang Malagon Systolic (mm Hg) 2018-03-16 15:31:00 Ming Mccall Diastolic (mm Hg) 2018-03-16 15:31:00 Mem dequan Mccall Procedures Procedure Date / Time Performed Performing Clinician [facility] gadiel CT ABDOMEN PELVIS W 2021-04-27 16:08:21 Bran Red [facility] CONTRAST [facility] Branch LIPASE 2021-04-27 15:45:00 Singer [facility] COMP. METABOLIC PANEL 2021-04-27 15:45:00 [facility] ([id number]) [facility] CBC WITH DIFF 2021-04-27 15:45:00 Red, [place] [facility] URINALYSIS 2021-04-27 15:45:00 [place] [facility] NOTICE OF PRIVACY 2021-04-27 14:21:16 Doctor Unassigned, No [facility] Name Medical Branch CONSENT/REFUSAL FOR 2021-04-27 14:20:59 Doctor Unassigned, [facility] DIAGNOSIS AND Name Medical Branch TREATMENT Encounters Start End Encounter Admission Attending Care Care Encounter Source Date/Time Date/Time Type Type Clinicians Facility Department ID 2021-04-27 2021-04-27 Emergency X RED, [facility] ERT [id number] Univers 08:27:00 11:54:00 BRAN ayala of [facility] 2021-04-27 2021-04-27 Emergency Red, [facility] [id number] Univers 08:27:00 11:54:00 Bran CARMONA [id number] i ty [facility] [id number] [facility] [id number] [facility] 084 Branch 2018-05-26 2018-05-28 Outside nullFlavo MNA [id number] Memoria 16:20:00 05:59:59 Medical r Neurology 02 l Records Payal Mccall 2018-04-21 2018-04-21 Ambulatory nullFlavo MNA [id number] Memoria 17:15:00 17:15:00 Pre-Reg r Neurology 01 l Payal Mccall 2018-03-22 2018-03-24 Outside nullFlavo MNA [id number] Memoria 22:51:00 04:59:59 Medical r Neurology 01 l Records Payal Mccall 2018-03-22 2018-03-24 Phone nullFlavo MNA [id number] Memoria 21:22:00 04:59:59 Message r Neurology 00 l Payal Mccall 2018-03-16 2018-03-17 Outpatient nullFlavo MNA [id number] Memoria 16:00:00 04:59:59 r Neurology 00 l Payal Mccall Results Test Description Test Time Test Comments Results Result Comments Source CBC WITH DIFF 2021-04-27 16:21:34 Test Item Value Reference Range Interpretation Comme nts WBC (test code = 6690-2) See_Comment [A utomated message] The system which ge nerated this result transmit malorie reference range: 4.20 - 1 0.70 10*3/?L. The reference r elizabeth was not used to interpr et this result as normal/abnor mal. RBC (test code = 789-8) See_Comment [Au tomated message] The system which ge nerated this result transmit malorie reference range: 4.26 - 5 .52 10*6/?L. The reference r elizabeth was not used to interpr et this result as normal/abnor mal. HGB (test code = 718-7) 14.8 g/dL 12.2-16.4 HCT (test code = 4544-3) 42.9 % 38.4-49.3 MCV (test code = 787-2) 87.2 fL 81.7-95.6 MCH (test code = 785-6) 30.1 pg 26.1-32.7 MCHC (test code = 786-4) 34.5 g/dL 31.2-35.0 RDW-SD (test code = 25779-3) 39.9 fL 38.5-51.6 RDW-CV (test code = 788-0) 12.4 % 12.1-15.4 PLT (test code = 777-3) See_Comment L [Au tomated message] The system which Antidot nerated this result transmit malorie reference range: 150 - 32 8 10*3/?L. The reference range was not used to interpret th is result as normal/abnormal . MPV (test code = 56322-8) 10.6 fL 9.8-13.0 IPF % (test code = 3.9 % 1.2-10.7 Platelet count measured by [id number]) fluorescence me thod. NRBC/100 WBC (test code = See_Comment [ Automated message] The 2323675067) system which Antidot nerated this result transmit malorie reference range: 0.0 - 10 .0 /100 WBCs. The reference r elizabeth was not used to interpr et this result as normal/abnor mal. NRBC x10^3 (test code = <0.01 See_Comment [Au tomated message] The 8712598576) system which Antidot nerated this result transmit malorie reference range: 10*3/?L. The reference range was not u sed to interpret this result as normal/abnormal . GRAN MAT (NEUT) % (test code 45.9 % = 770-8) IMM GRAN % (test code = 0.20 % 4398698167) LYMPH % (test code = 736-9) 41.6 % MONO % (test code = 5905-5) 5.3 % EOS % (test code = 713-8) 6.5 % BASO % (test code = 706-2) 0.5 % GRAN MAT x10^3(ANC) (test 2.59 10*3/uL 1.99-6.95 code = 3688928711) IMM GRAN x10^3 (test code = <0.03 0.00-0.06 4818737241) LYMPH x10^3 (test code = 2.35 10*3/uL 1.09-3.23 731-0) MONO x10^3 (test code = 0.30 10*3/uL 0.36-1.02 L 742-7) EOS x10^3 (test code = 0.37 10*3/uL 0.06-0.53 711-2) BASO x10^3 (test code = 0.03 10*3/uL 0.01-0.09 704-7) Lab Interpretation (test Abnormal code = 01239-5) [facility] (43592)2021-04-27 16:20:53 Test Item Value Reference Range Interpretation Comments NA (test code = 138 mmol/L 135-145 6737436377) K (test code = 4.3 mmol/L 3.5-5.0 5659512280) CL (test code = 104 mmol/L 98-108 7680036439) CO2 TOTAL (test code 28 mmol/L 23-31 = 3341211527) AGAP (test code = 2-16 3565443608) BUN (test code = 10 mg/dL 7-23 1614796727) GLUCOSE (test code = 95 mg/dL 70-110 6541671780) CREATININE (test code 0.93 mg/dL 0.60-1.25 = 7052755985) TOTAL BILI (test code 1.1 mg/dL 0.1-1.1 = 1583200965) CALCIUM (test code = 9.2 mg/dL 8.6-10.6 2003967529) T PROTEIN (test code 7.3 g/dL 6.3-8.2 = 9810850684) ALBUMIN (test code = 4.2 g/dL 3.5-5.0 9600259359) ALK PHOS (test code = 55 U/L 34-122 1113646540) ALTv (test code = 21 U/L 5-50 1742-6) AST(SGOT) (test code 28 U/L 13-40 = 4805695201) eGFR (test code = mL/min/1.73m2 5633168689) ABA (test code = ABA) Association of Glomerular Filtration Rate (GFR) and Staging of Kidney Disease* + + +- +| GFR (mL/min/1.73 m2) ?| With Kidney Damage ?| ?Without Kidney Damage+ ------+ ----+ ------+| ?>90 ?| ?Stage one ?| ? Normal ?+ -+ + -+| ?60-89 ?| ?Stage two ?| ? Decreased GFR ? + + +- +| ?30-59 ?| ?Stage three ?| ? Stage three ? + + +- +| ?15-29 ?| ?Stage four ? | ? Stage four ?+ -+ + -+| ?<15 (or dialysis) ? ?| ?Stage five ? | ? Stage five ?+ -+ + -+ *Each stage assumes the associated GFR level has been in effect for at least three months. ?Stages 1 to 5, with or without kidney disease, indicate chronic kidney disease. Notes: Determination of stages one and two (with eGFR >59mL/min/1.73 m2) requires estimation of kidney damage for at least three months as defined by structural or functional abnormalities of the kidney, manifested by either:Pathological abnormalities or Markers of kidney damage (including abnormalities in the composition of the blood or urine or abnormalities in imaging tests). [facility] [place] [facility] 16:20:33 Test Item Value Reference Range Interpretation Comments LIPASE (test code = 2587170073) 58 U/L 0-220 Lab Interpretation (test code = Normal 88265-8) [facility] [place] [facility]"
[2021-04-29] MEDS ORDERED: NA CHLORIDE 0.9% 50 ML ONE (06:23)
[2021-04-29] MEDS ORDERED: NA CHLORIDE 0.9% 1,000 ML ONE (06:23)
[2021-04-29] MEDS ORDERED: CEFTRIAXONE 1000 MG/VIAL ONE (06:23)
[2021-04-29 06:28] LABS: Urine Blood Negative (Negative); Urine Glucose Negative (Negative); Urine Protein Negative (Negative); Urine Specific Gravity 1.025 (1.005-1.030); Urine pH 6.5 (5.0-7.0)
[2021-04-29 06:29] LABS: Absolute Lymphocytes (CBC) 2.9 K/uL (0.7-4.9); Basophils % 0.6 % (0-1.3); Lymphocytes % 46.8 % (15.3-44.8); MPV 8.3 fL (7.6-11.3); RBC Red Blood Cell Count 4.87 M/uL (4.33-5.43)
[2021-04-29 06:45] LABS: Albumin 3.7 g/dL (3.4-5.0); Bilirubin Direct 0.2 mg/dL (0-0.2); Bilirubin Total 0.8 mg/dL (0.2-1.0); Potassium 3.4 mmol/L (3.5-5.1); Protein, Total 7.6 g/dL (6.4-8.2)
--- NOTE | 2021-04-29 06:49 | ER ---
Nurse's Notes [facility] Name: Juan Campos Age: 45 yrs Sex: Male : 1975 Arrival Date: 04/29/2021 Time: 05:51 Bed 6 Private MD: Diagnosis: Dysuria;Abdominal pain, Generalized;Hypokalemia Presentation: 04/29 05:59 Chief complaint: Patient states: N/V and bilateral flank pain that began 1 month ago. ss Pt reports that he has been seen in the ER frequently for this same thing, but has not been able to fill his prescriptions. DX with gonorrhea and chlamydia recently and is unsure whether or not that has cleared up. Coronavirus screen: Client denies travel out of the [place] in the last 14 days. Ebola Screen: Patient denies exposure to infectious person. Patient denies travel to an Ebola-affected area in the 21 days before illness onset. Initial Sepsis Screen: Does the patient meet any 2 criteria? No. Patient's initial sepsis screen is negative. Does the patient have a suspected source of infection? No. Patient's initial sepsis screen is negative. Risk Assessment: Do you want to hurt yourself or someone else? Patient reports no desire to harm self or others. Onset of symptoms is unknown. 05:59 Method Of Arrival: Ambulatory 05:59 Acuity: [place] 3 ss Historical: - Allergies: 06:01 NKA; ss - PMHx: 06:01 Anxiety; Bipolar disorder; ss - PSHx: 06:01 right inguinal hernia; ss - Immunization history:: Client reports receiving the 2nd dose of the Covid vaccine. - Social history:: Smoking status: Patient denies any tobacco usage or history of. - Family history:: not pertinent. Screenin:04 Abuse screen: Denies threats or abuse. Denies injuries from another. Nutritional lp1 screening: No deficits noted. Tuberculosis screening: No symptoms or risk factors identified. Fall Risk None identified. Assessment: 06:04 General: Appears ill, Behavior is anxious. Pain: Complains of pain in right lower lp1 quadrant and left lower quadrant. Neuro: Level of Consciousness is awake, alert, obeys commands, Oriented to person, place, time, situation. Cardiovascular: Patient's skin is warm and dry. Respiratory: Respiratory effort is even, unlabored. GI: Abdomen is non-distended, Abdomen is tender to palpation in posterior aspect of left lateral abdomen and posterior aspect of right lateral abdomen. : Reports discharge, from penis that is. EENT: No signs and/or symptoms were reported regarding the EENT system. Derm: Skin is intact, Skin is diaphoretic, Skin is normal. Musculoskeletal: No deficits noted. 07:13 Reassessment: Patient appears in no apparent distress at this time. No changes from tw2 previously documented assessment. Patient and/or family updated on plan of care and expected duration. Pain level reassessed. Patient is alert, oriented x 3, equal unlabored respirations, skin warm/dry/pink. 07:44 Reassessment: Patient appears in no apparent distress at this time. No changes from tw2 previously documented assessment. Patient and/or family updated on plan of care and expected duration. Pain level reassessed. Patient is alert, oriented x 3, equal unlabored respirations, skin warm/dry/pink. Vital Signs: 05:59 Pulse 75; Resp 22; Pulse Ox 100% on R/A; Weight 81.65 kg; Pain 7/10; ss 06:04 BP 143 / 90; Pulse 77; Resp 18; Temp 99.1(O); Pulse Ox 100% on R/A; Pain 7/10; lp1 07:13 BP 119 / 86; Pulse 76; Resp 17; Pulse Ox 100% on R/A; tw2 ED Course: 05:51 Patient arrived in ED. wm 05:58 Bhavesh Brown MD is Attending Physician. diane 06:01 Triage completed. ss 06:01 Arm band placed on right wrist. ss 06:04 Fannie Yates, RN is Primary Nurse. lp1 06:04 Patient has correct armband on for positive identification. Placed in gown. Pulse ox lp1 on. NIBP on. 06:15 Inserted saline lock: 20 gauge in left antecubital area, using aseptic technique. Blood lp1 collected. 06:15 Initial lab(s) drawn, by me, sent to lab. lp1 07:37 Primary Nurse role handed off by Fannie Yates, RN tw2 07:37 Leia Balderrama RN is Primary Nurse. tw2 07:37 Awaiting: completion of IV fluids prior to discharge. tw2 07:44 No provider procedures requiring assistance completed. IV discontinued, intact, tw2 bleeding controlled, No redness/swelling at site. Pressure dressing applied. Administered Medications: 06:25 Drug: NS 0.9% 1000 ml Route: IV; Rate: 1 bolus; Site: left antecubital; lp1 07:44 Follow up: Response: No adverse reaction; IV Status: Completed infusion; IV Intake: tw2 1000ml 06:25 Drug: Rocephin (cefTRIAXone) 1 grams Route: IV; Rate: per protocol; Site: left lp1 antecubital; Intake: 07:44 IV: 1000ml; Total: 1000ml. tw2 Outcome: 06:48 Discharge ordered by . diane 07:44 Discharged to home ambulatory. tw2 07:44 Condition: stable 07:44 Discharge instructions given to patient, Instructed on discharge instructions, follow up and referral plans. medication usage, Demonstrated understanding of instructions, follow-up care, medications, Prescriptions given X 2. 07:44 Patient left the ED. tw2 Signatures: Bhavesh Brown MD MD cha Smirch, Shelby RN RN Fannie Yates RN RN 1 Leia Balderrama RN RN tw2 Daina Plascencia
--- NOTE | 2021-04-29 06:49 | EDPHYS ---
Physician Documentation [facility] Name: Jaun Campos Age: 45 yrs Sex: Male : 1975 Arrival Date: 04/29/2021 Time: 05:51 Bed 6 Private MD: ERIK Physician Bhavesh Brown HPI: 04/29 06:12 This 45 yrs old Male presents to ER via Ambulatory with complaints of Nausea, diane Flank Pain. 06:12 The patient presents to the emergency department with nausea, vomiting, abdominal pain, diane of the posterior aspect of left lateral abdomen, posterior aspect of right lateral abdomen, right lower quadrant and left lower quadrant. Onset: The symptoms/episode began/occurred 2 day(s) ago. Possible causes: unknown. The symptoms are aggravated by nothing. The symptoms are alleviated by nothing. Associated signs and symptoms: The patient has no apparent associated signs or symptoms. Severity of symptoms: At their worst the symptoms were mild in the emergency department the symptoms are unchanged. The patient has not experienced similar symptoms in the past. Historical: - Allergies: 06:01 NKA; ss - PMHx: 06:01 Anxiety; Bipolar disorder; ss - PSHx: 06:01 right inguinal hernia; ss - Immunization history:: Client reports receiving the 2nd dose of the Covid vaccine. - Social history:: Smoking status: Patient denies any tobacco usage or history of. - Family history:: not pertinent. ROS: 06:12 Constitutional: Negative for fever, chills, and weight loss, Eyes: Negative for injury, diane pain, redness, and discharge, ENT: Negative for injury, pain, and discharge, Neck: Negative for injury, pain, and swelling, Cardiovascular: Negative for chest pain, palpitations, and edema, Respiratory: Negative for shortness of breath, cough, wheezing, and pleuritic chest pain, Back: Negative for injury and pain, : Negative for injury, bleeding, discharge, and swelling, MS/Extremity: Negative for injury and deformity, Skin: Negative for injury, rash, and discoloration, Neuro: Negative for headache, weakness, numbness, tingling, and seizure, Psych: Negative for depression, anxiety, suicide ideation, homicidal ideation, and hallucinations, Allergy/Immunology: Negative for hives, rash, and allergies, Endocrine: Negative for neck swelling, polydipsia, polyuria, polyphagia, and marked weight changes, Hematologic/Lymphatic: Negative for swollen nodes, abnormal bleeding, and unusual bruising. 06:12 Abdomen/GI: Positive for abdominal pain, nausea and vomiting, of the posterior aspect of left lateral abdomen and posterior aspect of right lateral abdomen. Exam: 06:12 Constitutional: This is a well developed, well nourished patient who is awake, alert, diane and in no acute distress. Head/Face: Normocephalic, atraumatic. Eyes: Pupils equal round and reactive to light, extra-ocular motions intact. Lids and lashes normal. Conjunctiva and sclera are non-icteric and not injected. Cornea within normal limits. Periorbital areas with no swelling, redness, or edema. ENT: Nares patent. No nasal discharge, no septal abnormalities noted. Tympanic membranes are normal and external auditory canals are clear. Oropharynx with no redness, swelling, or masses, exudates, or evidence of obstruction, uvula midline. Mucous membranes moist. Neck: Trachea midline, no thyromegaly or masses palpated, and no cervical lymphadenopathy. Supple, full range of motion without nuchal rigidity, or vertebral point tenderness. No Meningismus. Chest/axilla: Normal chest wall appearance and motion. Nontender with no deformity. No lesions are appreciated. Cardiovascular: Regular rate and rhythm with a normal S1 and S2. No gallops, murmurs, or rubs. Normal PMI, no JVD. No pulse deficits. Respiratory: Lungs have equal breath sounds bilaterally, clear to auscultation and percussion. No rales, rhonchi or wheezes noted. No increased work of breathing, no retractions or nasal flaring. Abdomen/GI: Soft, non-tender, with normal bowel sounds. No distension or tympany. No guarding or rebound. No evidence of tenderness throughout. Back: No spinal tenderness. No costovertebral tenderness. Full range of motion. Male : Normal genitalia with no discharge or lesions. Skin: Warm, dry with normal turgor. Normal color with no rashes, no lesions, and no evidence of cellulitis. MS/ Extremity: Pulses equal, no cyanosis. Neurovascular intact. Full, normal range of motion. Neuro: Awake and alert, GCS 15, oriented to person, place, time, and situation. Cranial nerves II-XII grossly intact. Motor strength 5/5 in all extremities. Sensory grossly intact. Cerebellar exam normal. Normal gait. Psych: Awake, alert, with orientation to person, place and time. Behavior, mood, and affect are within normal limits. Vital Signs: 05:59 Pulse 75; Resp 22; Pulse Ox 100% on R/A; Weight 81.65 kg; Pain 7/10; ss 06:04 BP 143 / 90; Pulse 77; Resp 18; Temp 99.1(O); Pulse Ox 100% on R/A; Pain 7/10; lp1 07:13 BP 119 / 86; Pulse 76; Resp 17; Pulse Ox 100% on R/A; tw2 MDM: 05:58 Patient medically screened. [facility] 06:14 Differential diagnosis: Nonspecific abd pain, gastritis. Data reviewed: vital signs, [facility] nurses notes, lab test result(s), CBC, electrolytes, hepatic panel, urinalysis. Data interpreted: vehicle monitor technician: not applicable for this patient encounter. rate is 77 beats/min, Pulse oximetry: on room air is 100 %. Counseling: I had a detailed discussion with the patient and/or guardian regarding: the historical points, exam findings, and any diagnostic results supporting the discharge/admit diagnosis, lab results, the need for outpatient follow up, for definitive care, 04/29 06:12 Order name: Basic Metabolic Panel; Complete Time: 06:47 [facility] 04/29 06:12 Order name: CBC with Diff; Complete Time: 06:47 [facility] 04/29 06:12 Order name: Hepatic Function; Complete Time: 06:47 [facility] 04/29 06:12 Order name: Lipase; Complete Time: 06:47 [facility] 04/29 06:12 Order name: Urine Culture [facility] 04/29 06:27 Order name: Urine Dipstick-Ancillary; Complete Time: 06:47 EDAK 04/29 06:12 Order name: IV Saline Lock; Complete Time: 06:19 [facility] 04/29 06:12 Order name: Labs collected and sent; Complete Time: 06:22 [facility] 04/29 06:12 Order name: Urine Dipstick-Ancillary (obtain specimen); Complete Time: 06:28 [facility] 04/29 06:48 Order name: PO challenge: po juice; Complete Time: 07:05 [facility] Administered Medications: 06:25 Drug: NS 0.9% 1000 ml Route: IV; Rate: 1 bolus; Site: left antecubital; lp1 07:44 Follow up: Response: No adverse reaction; IV Status: Completed infusion; IV Intake: tw2 1000ml 06:25 Drug: Rocephin (cefTRIAXone) 1 grams Route: IV; Rate: per protocol; Site: left lp1 antecubital; Disposition Summary: 04/29/21 06:48 Discharge Ordered Location: Home idane Problem: new diane Symptoms: have improved diane Condition: Stable diane Diagnosis - Dysuria diane - Abdominal pain, Generalized diane - Hypokalemia diane Followup: diane - With: Private Physician - When: 2 - 3 days - Reason: Recheck today's complaints, Continuance of care, Re-evaluation by your physician Discharge Instructions: - Discharge Summary Sheet diane - Abdominal Pain, Adult diane - Dysuria diane - Flank Pain, Adult diane - Potassium Content of Foods diane - Hypokalemia diane Forms: - Medication Reconciliation Form diane - Thank You Letter diane - Antibiotic Education diane - Prescription Opioid Use diane - Work release form tw2 Prescriptions: - Pepcid 20 mg Oral Tablet - take 1 tablet by ORAL route every 12 hours for 15 days; 30 tablet; Refills: 0, diane Product Selection Permitted - Doxycycline Hyclate 100 mg Oral Tablet - take 1 tablet by ORAL route every 12 hours; 14 tablet; Refills: 0, Product [facility] Selection Permitted Signatures: Dispatcher [employer] Bhavesh Weeks MD MD cha Smirch, Shelby RN RN Fannie Yates RN RN lp1 Leia Balderrama RN tw2
[2021-04-29 07:51] VITALS: O2SAT 100
[2021-04-29 07:52] VITALS: TEMP 99.1
[2021-04-29 07:53] VITALS: BP 119/86
== END 2021-04-29 07:44 | disposition home or self-care (01) ==
LOC: ER 05:47
DX: R30.0 Dysuria (principal)
CPT/HCPCS: 96361; 87088; 85025; 87086; 80048; 36415; 80076; 81003; 83690; 96374; 99284; J7030

== ENCOUNTER 2021-04-30 10:28 | Emergency (ER) | payer OTHER ==
--- OUTSIDE RECORDS SUMMARY | 2021-04-30 10:30 | XMS REPORT | Continuity of Care Document ---
:1975 Author Organization [facility] t Address [address] [place] [address] Care Team Providers Name Role Phone Pcp, Does Not Have A Primary Care Physician RED Attending Clinician Unavailable Red DO Attending Clinician Payers Payer Name Policy Type Policy Number Effective Date Expiration Date [facility] [id number] 2014 MEDICAID 00:00:00 Problems Condition Condition Condition [...] different from the original. ICD10 Diagnosis Term Wet [employer] Utility Allergies, Adverse Reactions, Alerts Allergy Allergy [...] Quantity Comments Source Exposure to Not sure [facility] SARS-CoV-2 [place] [facility] (event) Branch Alcohol intake 2018-05-26 2018-05-26 Current University of 00:00:00 00:00:00 non-drinker of [facility] alcohol Branch (finding) Sex Assigned At [birth year] Universit y of 00:00:00 00:00:00 [facility] Smoking Status Start Date Stop Date Source Never smoker [facility] Social History [facility] Medications Ordered Filled Start Stop Current Ordering Indication Dosage Frequency Signature Comments Components Source Medication Medication Date Date Medication? Clinician (SIG) Name Name iopamidol 2020-06- No [id number] 120mL 120 mL, Univers (ISOVUE 06-27 Intravenou ity o f 370-500 mL) 17:15: 16:04 s, ONCE, 1 [place] injection 00 :00 dose, On Medica l 120 mL [facility] 04/27/21 at 1115, Routine ondansetron 2020-06- No 4mg 4 mg, Slow Univers (ZOFRAN 06-27 IV Push, ity of (PF)) 16:45: 15:45 ONCE, 1 [place] injection 4 00 :00 dose, On Medi faina mg [facility] 04/27/21 at 1045, Routine sucralfate 2020-06 Yes [id number] 1g Take 1 U nivers 1 gram -22 tablet by ity of tablet 00:00: mouth [place] 00 before Medical meals and Branch at bedtime. dicyclomine 2020-06 Yes [id number] 10mg Take 1 Univers (BENTYL) 10 - capsule by it y of mg capsule 00:00: mouth [place] 00 every 8 Medical (eight) Branch hours as needed for Abdominal pain. ondansetron 2020-06 Yes [id number] 4mg Take 1 Univers 4 mg -22 tablet by ity of disintegrat 00:00: mouth [place] ing tablet 00 every 8 Medica l (eight) Branch hours as needed for Nausea and Vomiting (N/V). omeprazole 2020-06- Yes [id number] 20mg Take 1 Univers 20 mg 06-27- capsule by ity of capsule 00:00: 05:59 mouth [place] 00 :00 daily for Medical 30 days. Branch nystatin Yes [id number] Take 5 mL Univers 100,000 1-25 by mouth 4 ity of unit/mL 00:00: (four) [place] suspension 00 times Medical daily. Branch ondansetron Yes [id number] 4mg Take 1 Univers 4 mg tablet 1-25 tablet by ity of 00:00: mouth 00 every 8 Medical (eight) Branch hours as needed for Nausea and Vomiting (N/V). Famotidine 2017-06 No 20 mg = 1 Me moria 0-11 tab, PO, l 15:33: Q12H, 0 [place] 00 Refill(s) Ciprofloxac 2017-06 No 500 mg, Mem oria in 0-11 PO, Q12H, l 15:33: 0 [place] 00 Refill(s) hydrOXYzine 2017-06 No 25 mg, PO, Memoria hydrochlori 0-11 Q6H, 0 l de 15:33: Refill(s) Metronidazo 2017-06 No 500 mg = 1 Memoria le 0-11 tab, PO, l 15:33: Q6H, 0 [place] 00 Refill(s) Omeprazole 2017-06 No 40 mg, [...] 17:30:43 120 mm[Hg] Univer sity of pressure [facility] Diastolic blood 2021-04-27 17:30:43 75 mm[Hg] Unive rsity of pressure [facility] Heart rate 2021-04-27 17:30:43 70 /min [facility] Body temperature 2021-04-27 17:30:43 36.78 Carol [facility] Respiratory rate 2021-04-27 17:30:43 18 /min [facility] Oxygen saturation in 2021-04-27 17:30:43 100 /min [facility] Arterial blood by [facility] Pulse oximetry Branch Heart Rate 2018-03-16 15:31:00 [facility] Weight 2018-03-16 15:31:00 [facility] Height 2018-03-16 15:31:00 180.34 cm [facility] BMI Calculated 2018-03-16 15:31:00 Quang Malagon Systolic (mm Hg) 2018-03-16 15:31:00 Ming Mccall Diastolic (mm Hg) 2018-03-16 15:31:00 Mem dequan Mccall Procedures Procedure Date / Time Performed Performing Clinician [facility] gadiel CT ABDOMEN PELVIS W 2021-04-27 16:08:21 Bran Red [facility] CONTRAST [facility] Branch LIPASE 2021-04-27 15:45:00 [facility] COMP. METABOLIC PANEL 2021-04-27 15:45:00 Bran Red [facility] ([id number]) [facility] CBC WITH DIFF 2021-04-27 15:45:00 Red, [facility] URINALYSIS 2021-04-27 15:45:00 [place] [facility] NOTICE OF PRIVACY 2021-04-27 14:21:16 [facility], [facility] Name [facility] Branch CONSENT/REFUSAL FOR 2021-04-27 14:20:59 [facility], [facility] AND Name Medical Branch TREATMENT Encounters Start End Encounter Admission Attending Care Care Encounter Source Date/Time Date/Time Type Type Clinicians Facility Department ID 2021-04-27 2021-04-27 Emergency X RED, [facility] ERT [id number] Univers 08:27:00 11:54:00 BRNA ayala of [facility] 2021-04-27 2021-04-27 Emergency Red, [facility] [id number] Univers 08:27:00 11:54:00 Bran CARMONA [id number] i ty [facility] [id number] [facility] [id number] [facility] 084 Branch 2018-05-26 2018-05-28 Outside nullFlavo MNA [id number] Memoria 16:20:00 05:59:59 Medical r Neurology 02 l Records Payal Mccall 2018-04-21 2018-04-21 Ambulatory nullFlavo MNA [id number] Memoria 17:15:00 17:15:00 Pre-Reg r Neurology 01 l Payal Mccall 2018-03-22 2018-03-24 Outside nullFlavo MNA [id number] Memoria 22:51:00 04:59:59 Medical r Neurology 01 l Records Payal Mccall 2018-03-22 2018-03-24 Phone nullFlavo MNA [id number] Memoria 21:22:00 04:59:59 Message r Neurology 00 l Payal Mccall 2018-03-16 2018-03-17 Outpatient nullFlavo MNA [id number] Memoria 16:00:00 04:59:59 r Neurology 00 l [...] 34.5 g/dL 31.2-35.0 RDW-SD (test code = 49273-9) 39.9 fL 38.5-51.6 RDW-CV (test code = 788-0) 12.4 % 12.1-15.4 PLT (test code = 777-3) See_Comment L [Au tomated message] The system which [facility] nerated this result transmit malorie reference range: 150 - 32 8 10*3/?L. The reference range was not used to interpret th is result as normal/abnormal . MPV (test code = 87813-0) 10.6 fL 9.8-13.0 IPF % (test code = 3.9 % 1.2-10.7 Platelet count measured by [id number]) fluorescence me thod. NRBC/100 WBC (test code = See_Comment [ Automated message] The [id number]) system which [facility] nerated this result transmit malorie reference range: 0.0 - 10 .0 /100 WBCs. The reference r elizabeth was not used to interpr et this result as normal/abnor mal. NRBC x10^3 (test code = <0.01 See_Comment [Au tomated message] The 4953461312) system which [facility] nerated this result transmit malorie reference range: 10*3/?L. The reference range was not u sed to interpret this result as normal/abnormal . GRAN MAT (NEUT) % (test code 45.9 % = 770-8) IMM GRAN % (test code = 0.20 % 6073785308) LYMPH % (test code = 736-9) 41.6 % MONO % (test code = 5905-5) 5.3 % EOS % (test code = 713-8) 6.5 % BASO % (test code = 706-2) 0.5 % GRAN MAT x10^3(ANC) (test 2.59 10*3/uL 1.99-6.95 code = 0011998176) IMM GRAN x10^3 (test code = <0.03 0.00-0.06 7936693753) LYMPH x10^3 (test code = 2.35 10*3/uL 1.09-3.23 731-0) MONO x10^3 (test code = 0.30 10*3/uL 0.36-1.02 L 742-7) EOS x10^3 (test code = 0.37 10*3/uL 0.06-0.53 711-2) BASO x10^3 (test code = 0.03 10*3/uL 0.01-0.09 704-7) Lab Interpretation (test Abnormal code = 26818-9) [facility][id number][facility]2021-04-27 16:20:53 Test Item Value Reference Range Interpretation Comments NA (test code = 138 mmol/L 135-145 3489262159) K (test code = 4.3 mmol/L 3.5-5.0 6033427394) CL (test code = 104 mmol/L 98-108 8936890283) CO2 TOTAL (test code 28 mmol/L 23-31 = 9499919004) AGAP (test code = 2-16 1960995206) BUN (test code = 10 mg/dL 7-23 6319112527) GLUCOSE (test code = 95 mg/dL 70-110 1960474725) CREATININE (test code 0.93 mg/dL 0.60-1.25 = 8915210137) TOTAL BILI (test code 1.1 mg/dL 0.1-1.1 = 8277788588) CALCIUM (test code = 9.2 mg/dL 8.6-10.6 0244651522) T PROTEIN (test code 7.3 g/dL 6.3-8.2 = 3966758041) ALBUMIN (test code = 4.2 g/dL 3.5-5.0 6690655956) ALK PHOS (test code = 55 U/L 34-122 4327616035) ALTv (test code = 21 U/L 5-50 1742-6) AST(SGOT) (test code 28 U/L 13-40 = 3482969306) eGFR (test code = mL/min/1.73m2 3503203482) ABA (test code = ABA) Association of [...] or urine or abnormalities in imaging tests). [facility] 16:20:33 Test Item Value Reference Range Interpretation Comments LIPASE (test code = 6694056552) 58 U/L 0-220 Lab Interpretation (test code = Normal 02480-1) [facility]"
[2021-04-30] MEDS ORDERED: FAMOTIDINE 20 MG/2 ML VIAL IV ONE (10:37)
[2021-04-30] MEDS ORDERED: NA CHLORIDE 0.9% 1,000 ML ONE (10:37)
[2021-04-30] MEDS ORDERED: ONDANSETRON 4 MG/2 ML VIAL ONE (10:37)
[2021-04-30 10:51] LABS: Absolute Lymphocytes (CBC) 2.6 K/uL (0.7-4.9); Basophils % 0.8 % (0-1.3); Hematocrit 41.1 % (39.6-49.0); Lymphocytes % 38.6 % (15.3-44.8); MPV 8.5 fL (7.6-11.3); RBC Red Blood Cell Count 4.76 M/uL (4.33-5.43)
[2021-04-30 10:57] LABS: Urine Blood Trace-intact (Negative); Urine Glucose Negative (Negative); Urine Protein Trace (Negative); Urine pH 8.5 (5.0-7.0)
[2021-04-30 11:06] LABS: Albumin 3.7 g/dL (3.4-5.0); Bilirubin Direct 0.1 mg/dL (0-0.2); Bilirubin Total 0.6 mg/dL (0.2-1.0); Potassium 3.9 mmol/L (3.5-5.1); Protein, Total 7.4 g/dL (6.4-8.2)
[2021-04-30 11:15] LABS: Barbiturates NEGATIVE (NEGATIVE); Benzodiazepines NEGATIVE (NEGATIVE); Cocaine NEGATIVE (NEGATIVE); METHAMPHETAM NEGATIVE (NEGATIVE); Methadone NEGATIVE (NEGATIVE); Opiates NEGATIVE (NEGATIVE); Phencyclidine NEGATIVE (NEGATIVE); THC Cannibis NEGATIVE (NEGATIVE)
--- NOTE | 2021-04-30 13:01 | ER ---
Nurse's Notes [facility] Name: Juan Campos Age: 45 yrs Sex: Male : 1975 Arrival Date: 04/30/2021 Time: 10:28 Bed 4 Private MD: Diagnosis: Nausea with vomiting, unspecified Presentation: 04/30 10:31 Chief complaint: EMS states: Toned out for N/V/D since 0900, abdominal pain x 1 week, jl7 seen here yesterday and prescribed doxycycline and pepcid. Coronavirus screen: At this time, the client does not indicate any symptoms associated with coronavirus-19. Ebola Screen: No symptoms or risks identified at this time. Initial Sepsis Screen: Does the patient meet any 2 criteria? No. Patient's initial sepsis screen is negative. Does the patient have a suspected source of infection? No. Patient's initial sepsis screen is negative. Risk Assessment: Do you want to hurt yourself or someone else? Patient reports no desire to harm self or others. Onset of symptoms was April 23, 2021. Care prior to arrival: Medication(s) given: zofran 2 mg IV initiated. 20 GA, in the left antecubital area, Glucose check: 80. 10:31 Method Of Arrival: EMS: [facility] 10:31 Acuity: [place] 3 jl7 Triage Assessment: 10:34 General: Appears in no apparent distress. uncomfortable, Behavior is cooperative, jl7 anxious. Pain: Complains of pain in abdomen Pain currently is 7 out of 10 on a pain scale. GI: Reports diarrhea, nausea, vomiting. Historical: - Allergies: 10:34 NKA; jl7 - PMHx: 10:34 Anxiety; Bipolar disorder; jl7 - PSHx: 10:34 right inguinal hernia; jl7 - Immunization history:: Client reports receiving the 2nd dose of the Covid vaccine, Moderna. - Social history:: Smoking status: Patient denies any tobacco usage or history of. Screenin:42 Abuse screen: Denies threats or abuse. Denies injuries from another. Nutritional kd3 screening: No deficits noted. Tuberculosis screening: No symptoms or risk factors identified. Fall Risk IV access (20 points). Assessment: 11:41 Reassessment: No changes from previously documented assessment. kd3 11:44 GI: Reports. kd3 13:14 Reassessment: PO CHALLENGE SUCCESSFUL. kd3 13:37 GI: Abdomen is non-distended. kd3 Vital Signs: 10:31 BP 129 / 86; Pulse 75; Resp 15; Temp 97.9; Pulse Ox 100% on R/A; Weight 81.65 kg; jl7 Height 5 ft. 9 in. (175.26 cm); Pain 7/10; 11:42 BP 122 / 88; Pulse 72; Resp 16; Pulse Ox 100% on R/A; kd3 13:16 BP 121 / 90; Pulse 82; Resp 16; Pulse Ox 100% on R/A; kd3 10:31 Body Mass Index 26.58 (81.65 kg, 175.26 cm) jl7 ED Course: 10:28 Patient arrived in ED. ds1 10:29 Bhavesh Silva PA is PHCP. cp 10:29 Rafael Carter MD is Attending Physician. cp 10:31 Ilan Worthington, DRAKE is Primary Nurse. bp 10:32 Maintain EMS IV. Dressing intact. Good blood return noted. Site clean \T\ dry. Gauge \T\ bp site: 20 GAUGE LEFT AC. 10:34 Triage completed. jl7 10:34 Arm band placed on right wrist. jl7 11:42 Patient has correct armband on for positive identification. Bed in low position. Call kd3 light in reach. Side rails up X2. 13:01 Benitez Herring MD is Referral Physician. cp 13:36 No provider procedures requiring assistance completed. IV discontinued. kd3 Administered Medications: 10:44 Drug: NS 0.9% 1000 ml Route: IV; Rate: 1 bolus; Site: left antecubital; bp 13:15 Follow up: Response: No adverse reaction kd3 13:37 Follow up: IV Status: Completed infusion; IV Intake: 500ml kd3 10:44 Drug: Zofran (Ondansetron) 4 mg Route: IVP; Site: left antecubital; bp 13:15 Follow up: Response: No adverse reaction kd3 10:44 Drug: Pepcid (famotidine) 20 mg Route: IVP; Site: left antecubital; bp 13:15 Follow up: Response: No adverse reaction kd3 Intake: 13:37 IV: 500ml; Total: 500ml. kd3 Outcome: 13:01 Discharge ordered by . cp 13:36 Discharged to home ambulatory. kd3 13:36 Condition: stable 13:36 Discharge instructions given to patient, Instructed on discharge instructions, follow up and referral plans. medication usage, Demonstrated understanding of instructions, follow-up care, medications, Prescriptions given X 1. 13:37 Patient left the ED. kd3 Signatures: Gricel Connelly ds1 Bhavesh Silva PA PA cp Leal, Jahala RN RN jl7 Ilan Worthington RN RN bp Doucette, Kyli, RN RN kd3
--- NOTE | 2021-04-30 13:01 | EDPHYS ---
Physician Documentation [facility] Name: Juan Campos Age: 45 yrs Sex: Male : 1975 Arrival Date: 04/30/2021 Time: 10:28 Bed 4 Private MD: ED Physician Rafael Carter HPI: 04/30 10:35 This 45 yrs old Male presents to ER via EMS with complaints of Nausea/Vomiting. cp 10:35 The patient presents to the emergency department with nausea, that is moderate, cp vomiting, that is intermittent, diarrhea, 2 times today. Onset: The symptoms/episode began/occurred yesterday. Possible causes: antibiotics, has been taking doxycycline that was prescribed yesterday by DR Brown. Associated signs and symptoms: Pertinent negatives: constipation, fever, GI bleeding, active vomiting. Severity of symptoms: in the emergency department the symptoms are unchanged despite home interventions. Historical: - Allergies: 10:34 NKA; jl7 - PMHx: 10:34 Anxiety; Bipolar disorder; jl7 - PSHx: 10:34 right inguinal hernia; jl7 - Immunization history:: Client reports receiving the 2nd dose of the Covid vaccine, Moderna. - Social history:: Smoking status: Patient denies any tobacco usage or history of. ROS: 10:40 Constitutional: Negative for body aches, chills, fever. cp 10:40 Abdomen/GI: Positive for abdominal pain, nausea, vomiting, and diarrhea, Negative for cp hematemesis, black/tarry stool, rectal bleeding. 10:40 Eyes: Negative for injury, pain, redness, and discharge. cp 10:40 Cardiovascular: Negative for chest pain, palpitations. cp 10:40 Respiratory: Negative for cough, shortness of breath, wheezing. 10:40 : Negative for urinary symptoms, flank pain, testicular pain 10:40 Neuro: Negative for altered mental status, headache, weakness. 10:40 All other systems are negative. Exam: 10:45 Constitutional: The patient appears in no acute distress, alert, awake, comfortable, cp non-toxic, well developed, well nourished. 10:45 Head/Face: Normocephalic, atraumatic. cp 10:45 Eyes: Periorbital structures: appear normal, Conjunctiva: normal, no exudate, no injection, Sclera: no appreciated abnormality, Lids and lashes: appear normal, bilaterally. 10:45 Chest/axilla: Inspection: normal, Palpation: is normal, no crepitus, no tenderness. 10:45 Cardiovascular: Rate: normal, Rhythm: regular. 10:45 Respiratory: the patient does not display signs of respiratory distress, Respirations: normal, no use of accessory muscles, no retractions, labored breathing, is not present, Breath sounds: are clear throughout, no decreased breath sounds, no stridor, no wheezing. 10:45 Abdomen/GI: Inspection: abdomen appears normal, Bowel sounds: active, all quadrants, Palpation: soft, in all quadrants, mild abdominal tenderness, in the right upper quadrant and left lower quadrant, rebound tenderness, is not appreciated, voluntary guarding, is not appreciated, involuntary guarding, is not appreciated. 10:45 Back: pain, is absent, ROM is normal. 10:45 Neuro: Orientation: to person, place \T\ time. Mentation: is normal, Motor: moves all fours, strength is normal, Sensation: is normal. Vital Signs: 10:31 BP 129 / 86; Pulse 75; Resp 15; Temp 97.9; Pulse Ox 100% on R/A; Weight 81.65 kg; jl7 Height 5 ft. 9 in. (175.26 cm); Pain 7/10; 11:42 BP 122 / 88; Pulse 72; Resp 16; Pulse Ox 100% on R/A; kd3 13:16 BP 121 / 90; Pulse 82; Resp 16; Pulse Ox 100% on R/A; kd3 10:31 Body Mass Index 26.58 (81.65 kg, 175.26 cm) jl7 MDM: 10:31 Patient medically screened. cp 11:00 Differential diagnosis: gastritis, cholecystitis, pancreatitis, appendicitis, viral cp gastroenteritis, gastroenteritis. 13:00 Data reviewed: vital signs, nurses notes, lab test result(s), and as a result, I will cp discharge patient. 13:00 Special discussion: Based on the patient's Hx, exam, and Dx evaluation, there is no cp indication for emergent surgery or inpatient Tx. It is understood by the patient/guardian that if the Sx's persist or worsen they need to return immediately for re-evaluation. 13:00 Counseling: I had a detailed discussion with the patient and/or guardian regarding: the cp historical points, exam findings, and any diagnostic results supporting the discharge/admit diagnosis, lab results, to return to the emergency department if symptoms worsen or persist or if there are any questions or concerns that arise at home. 13:00 Response to treatment: the patient's symptoms have markedly improved after treatment, cp VSS. Nausea markedly improved and vomiting resolved. Patient seen in this ED multiple times recently with similar complaints. CT abdomen performed recently that was negative for significant findings. Will discharge to home for continued monitoring. 04/30 10:29 Order name: Basic Metabolic Panel; Complete Time: 11:19 cp 04/30 11:19 Interpretation: Normal except: CL 111; GLUC 113; GFR 75. cp 04/30 10:29 Order name: CBC with Diff; Complete Time: 11:19 cp 04/30 11:19 Interpretation: Normal except: EOSINOPHIL % 5.9. cp 04/30 10:29 Order name: Hepatic Function; Complete Time: 11:19 cp 04/30 11:20 Interpretation: Normal except: GLOB 3.7; A/G 1.0. cp 04/30 10:29 Order name: Lipase; Complete Time: 11:19 cp 04/30 10:29 Order name: UDS; Complete Time: 11:19 cp 04/30 10:57 Order name: Urine Dipstick-Ancillary; Complete Time: 11:19 EDMS 04/30 10:29 Order name: IV Saline Lock; Complete Time: 10:35 cp 04/30 10:29 Order name: Labs collected and sent; Complete Time: 10:44 cp 04/30 10:29 Order name: Urine Dipstick-Ancillary (obtain specimen); Complete Time: 11:47 cp 04/30 10:57 Order name: Urine Dipstick-Ancillary; Complete Time: 11:19 EDMS 04/30 11:19 Interpretation: Normal except: UBLD Trace-intact; UPH 8.5; UPROT Trace. cp 04/30 12:22 Order name: PO challenge; Complete Time: 13:14 cp Administered Medications: 10:44 Drug: NS 0.9% 1000 ml Route: IV; Rate: 1 bolus; Site: left antecubital; bp 13:15 Follow up: Response: No adverse reaction kd3 13:37 Follow up: IV Status: Completed infusion; IV Intake: 500ml kd3 10:44 Drug: Zofran (Ondansetron) 4 mg Route: IVP; Site: left antecubital; bp 13:15 Follow up: Response: No adverse reaction kd3 10:44 Drug: Pepcid (famotidine) 20 mg Route: IVP; Site: left antecubital; bp 13:15 Follow up: Response: No adverse reaction kd3 Disposition Summary: 04/30/21 13:01 Discharge Ordered Location: Home cp Problem: an ongoing problem cp Symptoms: have improved cp Condition: Stable cp Diagnosis - Nausea with vomiting, unspecified cp Followup: cp - With: Benitez Herring MD - When: 2 - 3 days - Reason: Recheck today's complaints Discharge Instructions: - Discharge Summary Sheet cp - Nausea and Vomiting, Adult cp Forms: - Medication Reconciliation Form cp - Thank You Letter cp - Antibiotic Education cp - Prescription Opioid Use cp Prescriptions: - promethazine 25 mg Oral Tablet - take 1 tablet by ORAL route every 6 hours As needed; 20 tablet; Refills: 0, cp Product Selection Permitted Signatures: Dispatcher [employer] EDMS Bhavesh Silva PA PA cp Leal, Jahala RN RN jl7 Ilan Worthington RN RN Emely Yuen RN kd3 Corrections: (The following items were deleted from the chart) 11:19 11:19 Normal except. cp cp
[2021-04-30 13:42] VITALS: TEMP 97.9; O2SAT 100
[2021-04-30 13:45] VITALS: BP 121/90
== END 2021-04-30 13:37 | disposition home or self-care (01) ==
LOC: ER 10:28
DX: R11.2 Nausea with vomiting, unspecified (principal)
CPT/HCPCS: 96361; 85025; 80048; 36415; 80076; 81003; 83690; 80307; 96375; 96374; 99283; J7030; J2405

== ENCOUNTER 2021-05-08 22:05 | Emergency (ER) | payer OTHER, SELFPAY ==
--- OUTSIDE RECORDS SUMMARY | 2021-05-08 22:09 | XMS REPORT | Continuity of Care Document ---
:1975 Author Organization [facility] t Address [address] [place] [address] Care Team Providers Name Role Phone PCP, DOES NOT HAVE A Primary Care Physician Unavailable RED Attending Clinician Unavailable Red DO Attending Clinician RED Admitting Clinician Unavailable Payers Payer Name Policy Type Policy Number Effective Date Expiration Date [facility] [id number] 2014 MEDICAID 00:00:00 Problems Condition Condition Condition [...] different from the original. ICD10 Diagnosis Term [employer] Utility Allergies, Adverse Reactions, Alerts Allergy Allergy [...] Quantity Comments Source Exposure to Not sure [facility] SARS-CoV-2 [place] [facility] (event) Branch Alcohol intake 2018-05-26 2018-05-26 Current University of 00:00:00 00:00:00 non-drinker of [facility] alcohol Branch (finding) Sex Assigned At [birth year] Universit y of 00:00:00 00:00:00 [facility] Smoking Status Start Date Stop Date Source Never smoker [facility] Social History [facility] Medications Ordered Filled Start Stop Current Ordering Indication Dosage Frequency Signature Comments Components Source Medication Medication Date Date Medication? Clinician (SIG) Name Name iopamidol 2020-06- No [id number] 120mL 120 mL, Univers (ISOVUE 06-27 Intravenou ity o f 370-500 mL) 17:15: 16:04 s, ONCE, 1 [place] injection 00 :00 dose, On Medica l 120 mL [facility] 04/27/21 at 1115, Routine ondansetron 2020-06- No 4mg 4 mg, Slow Univers (ZOFRAN 06-27 IV Push, ity of (PF)) 16:45: 15:45 ONCE, 1 [place] injection 4 00 :00 dose, On Medi faina mg [facility] 04/27/21 at 1045, Routine sucralfate 2020-06 Yes [id number] 1g Take 1 U nivers 1 gram -22 tablet by ity of tablet 00:00: mouth [place] 00 before Medical meals and Branch at bedtime. dicyclomine 2020-06 Yes [id number] 10mg Take 1 Univers (BENTYL) 10 - capsule by it y of mg capsule 00:00: mouth [place] 00 every 8 Medical (eight) Branch hours as needed for Abdominal pain. ondansetron 2020-06 Yes [id number] 4mg Take 1 Univers 4 mg -22 tablet by ity of disintegrat 00:00: mouth [place] ing tablet 00 every 8 Medica l (eight) Branch hours as needed for Nausea and Vomiting (N/V). omeprazole 2020-06- Yes [id number] 20mg Take 1 Univers 20 mg 06-27- capsule by ity of capsule 00:00: 05:59 mouth [place] 00 :00 daily for Medical 30 days. Branch nystatin Yes [id number] 130585O Take 5 mL Univers 100,000 1-25 by mouth 4 ity of unit/mL 00:00: (four) [place] suspension 00 times Medical daily. Branch ondansetron Yes [id number] 4mg Take 1 Univers 4 mg tablet 1-25 tablet by ity of 00:00: mouth 00 every 8 Medical (eight) Branch hours as needed for Nausea and Vomiting (N/V). Famotidine 2017-06 No 20 mg = 1 Me moria 0-11 tab, PO, l 15:33: Q12H, 0 [place] 00 Refill(s) Ciprofloxac 2017-06 No 500 mg, Mem oria in 0-11 PO, Q12H, l 15:33: 0 [place] 00 Refill(s) hydrOXYzine 2017-06 No 25 mg, PO, Memoria hydrochlori 0-11 Q6H, 0 l de 15:33: Refill(s) Metronidazo 2017-06 No 500 mg = 1 Memoria le 0-11 tab, PO, l 15:33: Q6H, 0 [place] 00 Refill(s) Omeprazole 2017-06 No 40 mg, [...] 17:30:43 120 mm[Hg] Univer sity of pressure [facility] Diastolic blood 2021-04-27 17:30:43 75 mm[Hg] Unive rsity of pressure [facility] Heart rate 2021-04-27 17:30:43 70 /min [facility] Body temperature 2021-04-27 17:30:43 36.78 [facility] 2021-04-27 17:30:43 18 /min [facility] Oxygen saturation in 2021-04-27 17:30:43 100 /min [facility] Arterial blood by [facility] Pulse oximetry Branch Heart Rate 2018-03-16 15:31:00 [facility] Cal Weight 2018-03-16 15:31:00 [facility] Height 2018-03-16 15:31:00 180.34 cm [facility] BMI Calculated 2018-03-16 15:31:00 Quang Malagon Systolic (mm Hg) 2018-03-16 15:31:00 Ming Mccall Diastolic (mm Hg) 2018-03-16 15:31:00 Mem dequan Mccall Procedures Procedure Date / Time Performed Performing Clinician [facility] gadiel CT ABDOMEN PELVIS W 2021-04-27 16:08:21 Bran [facility] CONTRAST [facility] Branch LIPASE 2021-04-27 15:45:00 [facility] COMP. METABOLIC PANEL 2021-04-27 15:45:00 [facility] ([id number]) [facility] CBC WITH DIFF 2021-04-27 15:45:00 [facility] URINALYSIS 2021-04-27 15:45:00 [facility] NOTICE OF PRIVACY 2021-04-27 14:21:16 Doctor Unassigned, No [facility] Name Medical Branch CONSENT/REFUSAL FOR 2021-04-27 14:20:59 Doctor Unassigned, [facility] AND Name Medical Branch TREATMENT Encounters Start End Encounter Admission Attending Care Care Encounter Source Date/Time Date/Time Type Type Clinicians Facility Department ID 2021-04-272021-04-27 Emergency X RED, [facility] ERT [id number] Univers 08:27:00 11:54:00 BRAN ayala of [facility] 2021-04-27 2021-04-27 Emergency Red, [facility] [id number] Univers 08:27:00 11:54:00 Bran CARMONA [id number] i ty [facility] [id number] [facility] [id number] [place] [id number] Branch 2018-05-26 2018-05-28 Outside nullFlavo MNA [id number] Memoria 16:20:00 05:59:59 Medical r Neurology 02 l Records Payal Mccall 2018-04-21 2018-04-21 Ambulatory nullFlavo MNA [id number] Memoria 17:15:00 17:15:00 Pre-Reg r Neurology 01 l Payal Mccall 2018-03-22 2018-03-24 Outside nullFlavo MNA [id number] Memoria 22:51:00 04:59:59 Medical r Neurology 01 l Records Payal Mccall 2018-03-22 2018-03-24 Phone nullFlavo MNA [id number] Memoria 21:22:00 04:59:59 Message r Neurology 00 l Payal Mccall 2018-03-16 2018-03-17 Outpatient nullFlavo MNA [id number] Memoria 16:00:00 04:59:59 r Neurology 00 l [...] 34.5 g/dL 31.2-35.0 RDW-SD (test code = 64461-8) 39.9 fL 38.5-51.6 RDW-CV (test code = 788-0) 12.4 % 12.1-15.4 PLT (test code = 777-3) See_Comment L [Au tomated message] The system which [employer] nerated this result transmit malorie reference range: 150 - 32 8 10*3/?L. The reference range was not used to interpret th is result as normal/abnormal . MPV (test code = 59690-0) 10.6 fL 9.8-13.0 IPF % (test code = 3.9 % 1.2-10.7 Platelet count measured by 1515172379) fluorescence me thod. NRBC/100 WBC (test code = See_Comment [ Automated message] The [id number]) system which [employer] nerated this result transmit malorie reference range: 0.0 - 10 .0 /100 WBCs. The reference r elizabeth was not used to interpr et this result as normal/abnor mal. NRBC x10^3 (test code = <0.01 See_Comment [Au tomated message] The [id number]) system which [employer] nerated this result transmit malorie reference range: 10*3/?L. The reference range was not u sed to interpret this result as normal/abnormal . GRAN MAT (NEUT) % (test code 45.9 % = 770-8) IMM GRAN % (test code = 0.20 % 4227036338) LYMPH % (test code = 736-9) 41.6 % MONO % (test code = 5905-5) 5.3 % EOS % (test code = 713-8) 6.5 % BASO % (test code = 706-2) 0.5 % GRAN MAT x10^3(ANC) (test 2.59 10*3/uL 1.99-6.95 code = 2061058829) IMM GRAN x10^3 (test code = <0.03 0.00-0.06 3221338656) LYMPH x10^3 (test code = 2.35 10*3/uL 1.09-3.23 731-0) MONO x10^3 (test code = 0.30 10*3/uL 0.36-1.02 L 742-7) EOS x10^3 (test code = 0.37 10*3/uL 0.06-0.53 711-2) BASO x10^3 (test code = 0.03 10*3/uL 0.01-0.09 704-7) Lab Interpretation (test Abnormal code = 29989-6) [facility] (38256)2021-04-27 16:20:53 Test Item Value Reference Range Interpretation Comments NA (test code = 138 mmol/L 135-145 1833130289) K (test code = 4.3 mmol/L 3.5-5.0 7169019583) CL (test code = 104 mmol/L 98-108 7852715306) CO2 TOTAL (test code 28 mmol/L 23-31 = 0497681409) AGAP (test code = 2-16 8677262572) BUN (test code = 10 mg/dL 7-23 5108015941) GLUCOSE (test code = 95 mg/dL 70-110 9382106558) CREATININE (test code 0.93 mg/dL 0.60-1.25 = 0825243976) TOTAL BILI (test code 1.1 mg/dL 0.1-1.1 = 1515326525) CALCIUM (test code = 9.2 mg/dL 8.6-10.6 6439846140) T PROTEIN (test code 7.3 g/dL 6.3-8.2 = 9613129252) ALBUMIN (test code = 4.2 g/dL 3.5-5.0 2356096326) ALK PHOS (test code = 55 U/L 34-122 2170898784) ALTv (test code = 21 U/L 5-50 1742-6) AST(SGOT) (test code 28 U/L 13-40 = 2500194876) eGFR (test code = mL/min/1.73m2 3357202878) ABA (test code = ABA) Association of [...] or urine or abnormalities in imaging tests). [facility]2021-[facility] 16:20:33 Test Item Value Reference Range Interpretation Comments LIPASE (test code = 3217883123) 58 U/L 0-220 Lab Interpretation (test code = Normal 92647-2) [facility]"
--- NOTE | 2021-05-08 22:58 | ER ---
Nurse's Notes [facility] Name: Juan Campos Age: 45 yrs Sex: Male : 1975 Arrival Date: 05/08/2021 Time: 22:07 Bed 9 Private MD: Diagnosis: Adjustment disorder with anxiety;Bipolar disorder, current episode manic without psychotic features, moderate Presentation: 05/08 22:47 Chief complaint: Patient states: he is still feeling numb all over which seems to be bb worsening since last visit. Coronavirus screen: At this time, the client does not indicate any symptoms associated with coronavirus-19. Ebola Screen: No symptoms or risks identified at this time. Initial Sepsis Screen: Does the patient meet any 2 criteria? No. Patient's initial sepsis screen is negative. Does the patient have a suspected source of infection? No. Patient's initial sepsis screen is negative. Risk Assessment: Do you want to hurt yourself or someone else? Patient reports no desire to harm self or others. Onset of symptoms was May 08, 2021. 22:47 Method Of Arrival: Ambulatory bb 22:47 Acuity: [place] 5 bb Triage Assessment: 23:09 General: Appears in no apparent distress. Behavior is cooperative, anxious. ld1 Historical: - Allergies: 22:49 NKA; bb - PMHx: 22:49 Anxiety; Bipolar disorder; bb - PSHx: 22:49 right inguinal hernia; bb - Immunization history:: Adult Immunizations up to date, Client reports receiving the 2nd dose of the Covid vaccine, Moderna. - Social history:: Smoking status: Patient denies any tobacco usage or history of. - Family history:: not pertinent. Screenin:01 Abuse screen: Denies threats or abuse. Denies injuries from another. Nutritional ld1 screening: No deficits noted. Tuberculosis screening: No symptoms or risk factors identified. Fall Risk None identified. Assessment: 23:01 Reassessment: See triage assessment. Pain: Complains of pain in all over body Pain does ld1 not radiate. Pain currently is 6 out of 10 on a pain scale. Quality of pain is described as tingling, Pain began gradually, Is continuous. Neuro:. Vital Signs: 22:47 BP 124 / 87; Pulse 71; Resp 16 S; Temp 98(O); Pulse Ox 100% on R/A; Weight 86.18 kg bb (R); Height 6 ft. 0 in. (182.88 cm) (R); Pain 0/10; 22:47 Body Mass Index 25.77 (86.18 kg, 182.88 cm) ED Course: 22:07 Patient arrived in ED. es 22:44 Bhavesh Brown MD is Attending Physician. [facility] 22:48 Triage completed. bb 22:49 Arm band placed on Patient placed in an exam room, on a stretcher, on pulse oximetry. bb Family accompanied patient. 22:56 Adelaida Sanders, RN is Primary Nurse. ld1 22:56 Noah Rossi MD is Referral Physician. [facility] 23:01 Patient has correct armband on for positive identification. Placed in gown. Bed in low ld1 position. Call light in reach. Side rails up X2. Pulse ox on. NIBP on. Door closed. Noise minimized. 23:01 No provider procedures requiring assistance completed. Patient did not have IV access ld1 during this emergency room visit. Administered Medications: 23:08 Drug: Ativan (LORazepam) 2 mg Route: PO; ld1 23:09 Follow up: Response: No adverse reaction ld1 Outcome: 22:57 Discharge ordered by . [facility] 23:10 Discharged to home ambulatory. ld1 23:10 Condition: stable 23:10 Discharge instructions given to patient, family, Instructed on discharge instructions, follow up and referral plans. medication usage, Demonstrated understanding of instructions, follow-up care, medications, Prescriptions given X 1. 23:10 Patient left the ED. ld1 Signatures: Bhavesh Brown MD MD cha Salyer, Edna es Ballard, Brenda RN RN Adelaida Sanders, DRAKE RN ld1
--- NOTE | 2021-05-08 22:59 | EDPHYS ---
Physician Documentation [facility] Name: Juan Campos Age: 45 yrs Sex: Male : 1975 Arrival Date: 05/08/2021 Time: 22:07 Bed 9 Private MD: ERIK Physician Bhavesh Brown HPI: 05/08 22:49 This 45 yrs old Male presents to ER via Ambulatory with complaints of diane Numbness. 22:49 The patient's problem is reported as weakness, that is generalized. Onset: The diane symptoms/episode began/occurred this morning, today. Duration: The episode is continuous. Context: the episode(s) was witnessed, by family, . The symptoms are alleviated by rest, The symptoms are aggravated by nothing. Associated signs and symptoms: Pertinent positives: anxiety. Severity of symptoms: At their worst the symptoms were mild in the emergency department the symptoms are unchanged. Patient's baseline: Neuro: alert and fully oriented. The patient has not experienced similar symptoms in the past. Historical: - Allergies: 22:49 NKA; bb - PMHx: 22:49 Anxiety; Bipolar disorder; bb - PSHx: 22:49 right inguinal hernia; bb - Immunization history:: Adult Immunizations up to date, Client reports receiving the 2nd dose of the Covid vaccine, Moderna. - Social history:: Smoking status: Patient denies any tobacco usage or history of. - Family history:: not pertinent. ROS: 22:49 Constitutional: Negative for fever, chills, and weight loss, Eyes: Negative for injury, diane pain, redness, and discharge, ENT: Negative for injury, pain, and discharge, Neck: Negative for injury, pain, and swelling, Cardiovascular: Negative for chest pain, palpitations, and edema, Respiratory: Negative for shortness of breath, cough, wheezing, and pleuritic chest pain, Abdomen/GI: Negative for abdominal pain, nausea, vomiting, diarrhea, and constipation, Back: Negative for injury and pain, : Negative for injury, bleeding, discharge, and swelling, MS/Extremity: Negative for injury and deformity, Skin: Negative for injury, rash, and discoloration, Neuro: Negative for headache, weakness, numbness, tingling, and seizure, Psych: Negative for depression, anxiety, suicide ideation, homicidal ideation, and hallucinations, Allergy/Immunology: Negative for hives, rash, and allergies, Endocrine: Negative for neck swelling, polydipsia, polyuria, polyphagia, and marked weight changes, Hematologic/Lymphatic: Negative for swollen nodes, abnormal bleeding, and unusual bruising. Exam: 22:49 Constitutional: This is a well developed, well nourished patient who is awake, alert, diane and in no acute distress. Head/Face: Normocephalic, atraumatic. Eyes: Pupils equal round and reactive to light, extra-ocular motions intact. Lids and lashes normal. Conjunctiva and sclera are non-icteric and not injected. Cornea within normal limits. Periorbital areas with no swelling, redness, or edema. ENT: Nares patent. No nasal discharge, no septal abnormalities noted. Tympanic membranes are normal and external auditory canals are clear. Oropharynx with no redness, swelling, or masses, exudates, or evidence of obstruction, uvula midline. Mucous membranes moist. Neck: Trachea midline, no thyromegaly or masses palpated, and no cervical lymphadenopathy. Supple, full range of motion without nuchal rigidity, or vertebral point tenderness. No Meningismus. Chest/axilla: Normal chest wall appearance and motion. Nontender with no deformity. No lesions are appreciated. Cardiovascular: Regular rate and rhythm with a normal S1 and S2. No gallops, murmurs, or rubs. Normal PMI, no JVD. No pulse deficits. Respiratory: Lungs have equal breath sounds bilaterally, clear to auscultation and percussion. No rales, rhonchi or wheezes noted. No increased work of breathing, no retractions or nasal flaring. Abdomen/GI: Soft, non-tender, with normal bowel sounds. No distension or tympany. No guarding or rebound. No evidence of tenderness throughout. Back: No spinal tenderness. No costovertebral tenderness. Full range of motion. Male : Normal genitalia with no discharge or lesions. Skin: Warm, dry with normal turgor. Normal color with no rashes, no lesions, and no evidence of cellulitis. MS/ Extremity: Pulses equal, no cyanosis. Neurovascular intact. Full, normal range of motion. Neuro: Awake and alert, GCS 15, oriented to person, place, time, and situation. Cranial nerves II-XII grossly intact. Motor strength 5/5 in all extremities. Sensory grossly intact. Cerebellar exam normal. Normal gait. Psych: Awake, alert, with orientation to person, place and time. Behavior, mood, and affect are within normal limits. Vital Signs: 22:47 BP 124 / 87; Pulse 71; Resp 16 S; Temp 98(O); Pulse Ox 100% on R/A; Weight 86.18 kg bb (R); Height 6 ft. 0 in. (182.88 cm) (R); Pain 0/10; 22:47 Body Mass Index 25.77 (86.18 kg, 182.88 cm) bb MDM: 22:44 Patient medically screened. diane 22:54 Differential diagnosis: metabolic disorder. Data reviewed: vital signs, nurses notes. 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 Counseling: I had a detailed discussion with the patient and/or guardian regarding: the historical points, exam findings, and any diagnostic results supporting the discharge/admit diagnosis, the need for outpatient follow up, for definitive care, Administered Medications: 23:08 Drug: Ativan (LORazepam) 2 mg Route: PO; ld1 23:09 Follow up: Response: No adverse reaction ld1 Disposition Summary: 05/08/21 22:57 Discharge Ordered Location: Home diane Problem: new diane Symptoms: have improved diane Condition: Stable diane Diagnosis - Adjustment disorder with anxiety diane - Bipolar disorder, current episode manic without psychotic features, moderate diane Followup: diane - With: Private Physician - When: 2 - 3 days - Reason: Recheck today's complaints, Continuance of care, Re-evaluation by your physician Followup: diane - With: Noah Rossi MD - When: 2 - 3 days - Reason: Recheck today's complaints, Continuance of care, Re-evaluation by your physician Discharge Instructions: - Discharge Summary Sheet diane - Adjustment Disorder, Adult diane - Panic Attack diane - Libra diane Forms: - Medication Reconciliation Form diane - Thank You Letter diane - Antibiotic Education diane - Prescription Opioid Use diane Prescriptions: - Benadryl 25 mg Oral Capsule - take 1 capsule by ORAL route every 6 hours As needed; 30 tablet; Refills: 0, diane Product Selection Permitted Signatures: Bhavesh Brown MD MD cha Ballard, Brenda, RN RN Eyad Emersonen, RN RN ld1
[2021-05-08] MEDS ORDERED: LORAZEPAM 1 MG TABLET ONE (23:05)
[2021-05-08 23:15] VITALS: BP 124/87; TEMP 98; O2SAT 100
== END 2021-05-08 23:10 | disposition home or self-care (01) ==
LOC: ER 22:05
DX: F43.22 Adjustment disorder with anxiety (principal); F31.9 Bipolar disorder, unspecified
CPT/HCPCS: 99283

== ENCOUNTER 2021-05-12 02:49 | Emergency (ER) | payer SELFPAY ==
--- OUTSIDE RECORDS SUMMARY | 2021-05-12 02:53 | XMS REPORT | Continuity of Care Document ---
:1975 Author Organization [facility] t Address [address] [place] [address] Care Team Providers Name Role Phone PCP, DOES NOT HAVE A Primary Care Physician Unavailable RED Attending Clinician Unavailable Red DO Attending Clinician RED Admitting Clinician Unavailable Payers Payer Name Policy Type Policy Number Effective Date Expiration Date [facility] [id number] 2014 MEDICAID 00:00:00 Problems Condition Condition Condition [...] different from the original. 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 Allergies, Adverse Reactions, Alerts Allergy Allergy [...] Quantity Comments Source Exposure to Not sure [facility] SARS-CoV-2 [place] [facility] (event) Branch Alcohol intake 2018-05-26 2018-05-26 Current University of 00:00:00 00:00:00 non-drinker of [facility] alcohol Branch (finding) Sex Assigned At [birth year] Universit y of 00:00:00 00:00:00 [facility] Smoking Status Start Date Stop Date Source Never smoker [facility] Social History [facility] Medications Ordered Filled Start Stop Current Ordering Indication Dosage Frequency Signature Comments Components Source Medication Medication Date Date Medication? Clinician (SIG) Name Name iopamidol 2020-06- No [id number] 120mL 120 mL, Univers (ISOVUE 06-27 Intravenou ity o f 370-500 mL) 17:15: 16:04 s, ONCE, 1 [place] injection 00 :00 dose, On Medica l 120 mL [facility] 04/27/21 at 1115, Routine ondansetron 2020-06- No 4mg 4 mg, Slow Univers (ZOFRAN 06-27 IV Push, ity of (PF)) 16:45: 15:45 ONCE, 1 [place] injection 4 00 :00 dose, On Medi faina mg [facility] 04/27/21 at 1045, Routine sucralfate 2020-06 Yes [id number] 1g Take 1 U nivers 1 gram -22 tablet by ity of tablet 00:00: mouth [place] 00 before Medical meals and Branch at bedtime. dicyclomine 2020-06 Yes [id number] 10mg Take 1 Univers (BENTYL) 10 - capsule by it y of mg capsule 00:00: mouth [place] 00 every 8 Medical (eight) Branch hours as needed for Abdominal pain. ondansetron 2020-06 Yes [id number] 4mg Take 1 Univers 4 mg -22 tablet by ity of disintegrat 00:00: mouth [place] ing tablet 00 every 8 Medica l (eight) Branch hours as needed for Nausea and Vomiting (N/V). omeprazole 2020-06- Yes [id number] 20mg Take 1 Univers 20 mg 06-27- capsule by ity of capsule 00:00: 05:59 mouth [place] 00 :00 daily for Medical 30 days. Branch nystatin Yes [id number] Take 5 mL Univers 100,000 1-25 by mouth 4 ity of unit/mL 00:00: (four) [place] suspension 00 times Medical daily. Branch ondansetron Yes [id number] 4mg Take 1 Univers 4 mg tablet 1-25 tablet by ity of 00:00: mouth 00 every 8 Medical (eight) Branch hours as needed for Nausea and Vomiting (N/V). Famotidine 2017-06 No 20 mg = 1 Me moria 0-11 tab, PO, l 15:33: Q12H, 0 Cal 00 Refill(s) Ciprofloxac 2017-06 No 500 mg, Mem oria in 0-11 PO, Q12H, l 15:33: 0 [place] 00 Refill(s) hydrOXYzine 2017-06 No 25 mg, [...] 17:30:43 120 mm[Hg] Univer sity of pressure [facility] Diastolic blood 2021-04-27 17:30:43 75 mm[Hg] Unive rsity of pressure [facility] Heart rate 2021-04-27 17:30:43 70 /min [facility] Body temperature 2021-04-27 17:30:43 36.78 [facility] Respiratory rate 2021-04-27 17:30:43 18 /min [facility] Oxygen saturation in 2021-04-27 17:30:43 100 /min [facility] Arterial blood by [facility] Pulse oximetry Branch Heart Rate 2018-03-16 15:31:00 [facility] Weight 2018-03-16 15:31:00 [facility] Height 2018-03-16 15:31:00 180.34 cm [facility] BMI Calculated 2018-03-16 15:31:00 Quang Malagon Systolic (mm Hg) 2018-03-16 15:31:00 Ming Mccall Diastolic (mm Hg) 2018-03-16 15:31:00 Mem dequan Mccall Procedures Procedure Date / Time Performed Performing Clinician [facility] gadiel CT ABDOMEN PELVIS W 2021-04-27 16:08:21 Bran Red [facility] CONTRAST [facility] Branch LIPASE 2021-04-27 15:45:00 Singer [facility] COMP. METABOLIC PANEL 2021-04-27 15:45:00 [facility] ([id number]) [facility] CBC WITH DIFF 2021-04-27 15:45:00 Holcomb [facility] URINALYSIS 2021-04-27 15:45:00 Holcomb [facility] NOTICE OF PRIVACY 2021-04-27 14:21:16 Doctor Unassigned, No [facility] [place] [place] [facility] Name Medical Branch CONSENT/REFUSAL FOR 2021-04-27 14:20:59 Doctor Unassigned, [facility] [place] [place] DI[facility]NOSIS AND Name Medical Branch TREATMENT Encounters Start End Encounter Admission Attending Care Care Encounter Source Date/Time Date/Time Type Type Clinicians Facility Department ID 2021-04-272021-04-27 Emergency X RED, [facility] ERT [id number] Univers 08:27:00 11:54:00 BRAN ayala of [facility] 2021-04-27 2021-04-27 Emergency Red, [facility] [id number] Univers 08:27:00 11:54:00 Bran CARMONA [id number] i ty [facility] [id number] [facility] [id number] [place] [id number] Branch 2018-05-26 2018-05-28 Outside nullFlavo MNA [id number] Memoria 16:20:00 05:59:59 Medical r Neurology 02 l Records Payal Mccall 2018-04-21 2018-04-21 Ambulatory nullFlavo MNA [id number] Memoria 17:15:00 17:15:00 Pre-Reg r Neurology 01 l Payal Mccall 2018-03-22 2018-03-24 Outside nullFlavo MNA [id number] Memoria 22:51:00 04:59:59 Medical r Neurology 01 l Records Payal Mccall 2018-03-22 2018-03-24 Phone nullFlavo MNA [id number] Memoria 21:22:00 04:59:59 Message r Neurology 00 l Payal Mccall 2018-03-16 2018-03-17 Outpatient nullFlavo MNA [id number] Memoria 16:00:00 04:59:59 r Neurology 00 l [...] 34.5 g/dL 31.2-35.0 RDW-SD (test code = 32373-6) 39.9 fL 38.5-51.6 RDW-CV (test code = 788-0) 12.4 % 12.1-15.4 PLT (test code = 777-3) See_Comment L [Au tomated message] The system which [employer] nerated this result transmit malorie reference range: 150 - 32 8 10*3/?L. The reference range was not used to interpret th is result as normal/abnormal . MPV (test code = 74373-7) 10.6 fL 9.8-13.0 IPF % (test code = 3.9 % 1.2-10.7 Platelet count measured by [id number]) fluorescence me thod. NRBC/100 WBC (test code = See_Comment [ Automated message] The [id number]) system which [employer] nerated this result transmit malorie reference range: 0.0 - 10 .0 /100 WBCs. The reference r elizabeth was not used to interpr et this result as normal/abnor mal. NRBC x10^3 (test code = <0.01 See_Comment [Au tomated message] The 4826237323) system which [employer] nerated this result transmit malorie reference range: 10*3/?L. The reference range was not u sed to interpret this result as normal/abnormal . GRAN MAT (NEUT) % (test code 45.9 % = 770-8) IMM GRAN % (test code = 0.20 % 9729146185) LYMPH % (test code = 736-9) 41.6 % MONO % (test code = 5905-5) 5.3 % EOS % (test code = 713-8) 6.5 % BASO % (test code = 706-2) 0.5 % GRAN MAT x10^3(ANC) (test 2.59 10*3/uL 1.99-6.95 code = 8043471631) IMM GRAN x10^3 (test code = <0.03 0.00-0.06 0491257079) LYMPH x10^3 (test code = 2.35 10*3/uL 1.09-3.23 731-0) MONO x10^3 (test code = 0.30 10*3/uL 0.36-1.02 L 742-7) EOS x10^3 (test code = 0.37 10*3/uL 0.06-0.53 711-2) BASO x10^3 (test code = 0.03 10*3/uL 0.01-0.09 704-7) Lab Interpretation (test Abnormal code = 07089-1) [facility] ([id number])2021-04-27 16:20:53 Test Item Value Reference Range Interpretation Comments NA (test code = 138 mmol/L 135-145 0163564434) K (test code = 4.3 mmol/L 3.5-5.0 7999721574) CL (test code = 104 mmol/L 98-108 3035897881) CO2 TOTAL (test code 28 mmol/L 23-31 = 3269070649) AGAP (test code = 2-16 6082152527) BUN (test code = 10 mg/dL 7-23 3244205172) GLUCOSE (test code = 95 mg/dL 70-110 1983939100) CREATININE (test code 0.93 mg/dL 0.60-1.25 = 9227848204) TOTAL BILI (test code 1.1 mg/dL 0.1-1.1 = 5644803518) CALCIUM (test code = 9.2 mg/dL 8.6-10.6 9207843274) T PROTEIN (test code 7.3 g/dL 6.3-8.2 = 7363315603) ALBUMIN (test code = 4.2 g/dL 3.5-5.0 2041337102) ALK PHOS (test code = 55 U/L 34-122 7318750882) ALTv (test code = 21 U/L 5-50 1742-6) AST(SGOT) (test code 28 U/L 13-40 = 0815329765) eGFR (test code = mL/min/1.73m2 7665571011) ABA (test code = ABA) Association of [...] in imaging tests). [facility]21[facility] 16:20:33 Test Item Value Reference Range Interpretation Comments LIPASE (test code = 4350496407) 58 U/L 0-220 Lab Interpretation (test code = Normal 19024-2) [facility]"
[2021-05-12 05:52] LABS: Absolute Lymphocytes (CBC) 2.5 K/uL (0.7-4.9); Basophils % 0.7 % (0-1.3); Hematocrit 38.4 % (39.6-49.0); Lymphocytes % 41.9 % (15.3-44.8); MPV 9.1 fL (7.6-11.3); RBC Red Blood Cell Count 4.43 M/uL (4.33-5.43)
[2021-05-12 05:59] LABS: ALT/SGPT 24 U/L (12-78); Albumin 3.4 g/dL (3.4-5.0); Alkaline Phosphatase 59 U/L (45-117); BUN Blood Urea Nitrogen 15 mg/dL (7-18); Bicarbonate 27 mmol/L (21-32); Bilirubin Direct < 0.1 mg/dL (0-0.2); Bilirubin Total 0.4 mg/dL (0.2-1.0); Glucose Level 104 mg/dL (74-106); Lipase 78 U/L (73-393); Protein, Total 6.9 g/dL (6.4-8.2); Sodium Level 143 mmol/L (136-145)
[2021-05-12 06:01] LABS: AST/SGOT 28 U/L (15-37); Potassium 3.9 mmol/L (3.5-5.1)
--- NOTE | 2021-05-12 06:07 | ER ---
Nurse's Notes [facility] Name: Juan Campos Age: 45 yrs Sex: Male : 1975 Arrival Date: 05/12/2021 Time: 02:52 Bed 20 Private MD: Diagnosis: Abdominal pain Presentation: 05/12 02:59 Chief complaint: Patient states: Nerve pain through out body and abd Pain. Coronavirus da3 screen: Vaccine status: Patient reports receiving the 2nd dose of the covid vaccine. Ebola Screen: No symptoms or risks identified at this time. Risk Assessment: Do you want to hurt yourself or someone else? Patient reports no desire to harm self or others. 02:59 Method Of Arrival: Ambulatory da3 02:59 Acuity: [place] 3 da3 03:08 Initial Sepsis Screen: Does the patient have a suspected source of infection? No. da3 Patient's initial sepsis screen is negative. 03:17 Onset of symptoms is unknown. bb Triage Assessment: 03:04 General: Appears in no apparent distress. Behavior is anxious. da3 03:09 General: Appears slender, well groomed. da3 Historical: - PMHx: 03:08 Sexually transmitted infectious disease; da3 - Immunization history:: Client reports receiving the 2nd dose of the Covid vaccine, Moderna. Screenin:16 Abuse screen: Denies threats or abuse. Nutritional screening: No deficits noted. bb Tuberculosis screening: No symptoms or risk factors identified. Fall Risk None identified. Assessment: 03:16 General: Appears in no apparent distress. slender, Behavior is calm, cooperative. Pain: bb Complains of pain in abdomen Quality of pain is described as burning. Neuro: Level of Consciousness is awake, alert, obeys commands, Oriented to person, place, time, situation. Cardiovascular: Capillary refill < 3 seconds Patient's skin is warm and dry. Respiratory: Respiratory effort is even, unlabored, Respiratory pattern is symmetrical. GI: Abdomen is non-distended. Derm: Skin is pink, warm \T\ dry. Musculoskeletal: Circulation, motion, and sensation intact. 03:55 General: Behavior is anxious. as6 06:14 Reassessment: Patient is alert, oriented x 3, equal unlabored respirations, skin bb warm/dry/pink. at bedside with Dr Nur for discussion of findings and recommendations pt to be discharged and follow-up with [facility] today. Pt verbalized understanding of and agrees to plan of care discharge instructions given pt ambulated with steady gait to exit. Vital Signs: 02:59 BP 131 / 98; Pulse 78; Resp 18; Temp 98.7; Pulse Ox 100% on R/A; Weight 86.18 kg; da3 Height 6 ft. 0 in. (182.88 cm); 03:55 BP 120 / 83; Pulse 87; Resp 20 S; Pulse Ox 100% on R/A; as6 05:00 BP 117 / 79; Pulse 73; Resp 18 S; Pulse Ox 97% on R/A; as6 05:50 BP 121 / 84; Pulse 71; Resp 20 S; Pulse Ox 100% on R/A; as6 06:15 BP 114 / 82; Pulse 85; Resp 16 S; Pulse Ox 99% on R/A; bb 02:59 Body Mass Index 25.77 (86.18 kg, 182.88 cm) da3 ED Course: 02:52 Patient arrived in ED. bp1 03:04 Triage completed. da3 03:09 Jim Mata, RN is Primary Nurse. as6 03:13 Arm band placed on. as6 03:14 Lei Nur MD is Attending Physician. pkl 03:16 Patient has correct armband on for positive identification. Placed in gown. Bed in low bb position. Call light in reach. 03:55 Inserted saline lock: 20 gauge in right antecubital area, using aseptic technique. as6 Blood collected. 06:16 No provider procedures requiring assistance completed. IV discontinued, intact, bb bleeding controlled, No redness/swelling at site. Pressure dressing applied. Administered Medications: No medications were administered Outcome: 06:07 Discharge ordered by . pkmiguel angel 06:16 Discharged to home ambulatory. bb 06:16 Condition: stable 06:16 Instructed on discharge instructions, follow up and referral plans. Demonstrated bb understanding of instructions, follow-up care. 06:16 Patient left the ED. bb Signatures: Lei Nur MD MD pkl Ballard, Brenda, RN RN bb Adrienne Manuel bp1 Isidoro Ibarra RN RN da3 Jim Mata, DRAKE RN as6 Corrections: (The following items were deleted from the chart) 03:04 03:04 PMHx: Bipolar disorder; da3 da3 03:04 03:04 PMHx: Anxiety; da3 da3 03:04 03:04 PSHx: right inguinal hernia; da3 da3
--- NOTE | 2021-05-12 06:07 | EDPHYS ---
Physician Documentation [facility] Name: Juan Campos Age: 45 yrs Sex: Male : 1975 Arrival Date: 05/12/2021 Time: 02:52 Bed 20 Private MD: ED Physician Lei Nur HPI: 05/12 03:32 This 45 yrs old Male presents to ER via Ambulatory with complaints of Nerve Pain, pkl Numbness. 03:32 The patient presents with abdominal pain that is diffuse. Onset: The symptoms/episode pkl began/occurred 3 month(s) ago. Associated signs and symptoms: Pertinent positives: tingling sensations all over body. The patient has experienced similar episodes in the past, several times. Patient said he was diagnose with chlamydia few weeks ago and think chlamydia is causing all his problem. Historical: - PMHx: 03:08 Sexually transmitted infectious disease; da3 - Immunization history:: Client reports receiving the 2nd dose of the Covid vaccine, Moderna. ROS: 03:32 Eyes: Negative for injury, pain, redness, and discharge, ENT: Negative for injury, pkl pain, and discharge, Neck: Negative for injury, pain, and swelling, Cardiovascular: Negative for chest pain, palpitations, and edema, Respiratory: Negative for shortness of breath, cough, wheezing, and pleuritic chest pain. 03:32 Abdomen/GI: Positive for abdominal pain, of the right upper quadrant, left upper quadrant, right lower quadrant and left lower quadrant. 03:32 Back: Negative for acute changes. 03:32 : Negative for urinary symptoms. 03:32 MS/extremity: Negative for acute changes. 03:32 Skin: Negative for rash. 03:32 Neuro: Positive for tingling sensation all over body.. Exam: 03:32 Head/Face: Normocephalic, atraumatic. Eyes: Pupils equal round and reactive to light, pkl extra-ocular motions intact. Lids and lashes normal. Conjunctiva and sclera are non-icteric and not injected. Cornea within normal limits. Periorbital areas with no swelling, redness, or edema. ENT: Nares patent. No nasal discharge, no septal abnormalities noted. Tympanic membranes are normal and external auditory canals are clear. Oropharynx with no redness, swelling, or masses, exudates, or evidence of obstruction, uvula midline. Mucous membranes moist. Neck: Trachea midline, no thyromegaly or masses palpated, and no cervical lymphadenopathy. Supple, full range of motion without nuchal rigidity, or vertebral point tenderness. No Meningismus. Chest/axilla: Normal chest wall appearance and motion. Nontender with no deformity. No lesions are appreciated. Cardiovascular: Regular rate and rhythm with a normal S1 and S2. No gallops, murmurs, or rubs. Normal PMI, no JVD. No pulse deficits. Respiratory: Lungs have equal breath sounds bilaterally, clear to auscultation and percussion. No rales, rhonchi or wheezes noted. No increased work of breathing, no retractions or nasal flaring. 03:32 Abdomen/GI: Bowel sounds: normal, Palpation: soft, mild abdominal tenderness, in all quadrants. 03:32 Back: Exam negative for acute changes. 03:32 : Exam negative for acute changes. 03:32 Musculoskeletal/extremity: Exam is negative for acute changes. 03:32 Skin: Exam negative for rash. 03:32 Neuro: Exam negative for acute changes, Mentation: is normal, Cranial nerves: grossly normal, Motor: is normal. Vital Signs: 02:59 BP 131 / 98; Pulse 78; Resp 18; Temp 98.7; Pulse Ox 100% on R/A; Weight 86.18 kg; da3 Height 6 ft. 0 in. (182.88 cm); 03:55 BP 120 / 83; Pulse 87; Resp 20 S; Pulse Ox 100% on R/A; as6 05:00 BP 117 / 79; Pulse 73; Resp 18 S; Pulse Ox 97% on R/A; as6 05:50 BP 121 / 84; Pulse 71; Resp 20 S; Pulse Ox 100% on R/A; as6 06:15 BP 114 / 82; Pulse 85; Resp 16 S; Pulse Ox 99% on R/A; bb 02:59 Body Mass Index 25.77 (86.18 kg, 182.88 cm) da3 MDM: 03:15 Patient medically screened. pkl 06:03 Data reviewed: vital signs, nurses notes, lab test result(s). ED course: Discussed lab pkl results with patient. Urine Chlamydia pending. Advised to follow up with [facility] in 2 to 3 days. Patient understood instructions. 05/12 03:31 Order name: Basic Metabolic Panel pkl 05/12 03:31 Order name: CBC with Diff; Complete Time: 05:58 pkl 05/12 03:31 Order name: Hepatic Function; Complete Time: 06:03 pkl 05/12 03:31 Order name: Lipase; Complete Time: 06:03 pkl 05/12 03:31 Order name: Basic Metabolic Panel; Complete Time: 06:03 EDMS 05/12 03:36 Order name: GC (Raymundo/Chl) Probe URINE EDMS 05/12 03:31 Order name: IV Saline Lock; Complete Time: 03:43 pkl 05/12 03:31 Order name: Labs collected and sent; Complete Time: 03:43 pkl Administered Medications: No medications were administered Disposition Summary: 05/12/21 06:07 Discharge Ordered Location: Home pkl Problem: new pkl Symptoms: have improved pkl Condition: Stable pkl Diagnosis - Abdominal pain pkl Followup: pkl - With: Private Physician - When: 2 - 3 days - Reason: Re-evaluation by your physician Forms: - Medication Reconciliation Form pkl - Thank You Letter pkl - Antibiotic Education pkl - Prescription Opioid Use pkl Signatures: Dispatcher [employer] EDLei Lyons MD MD pkl Desiree Herrera, RN RN Isidoro Truong RN RN da3 Corrections: (The following items were deleted from the chart) 03:04 03:04 PMHx: Bipolar disorder; da3 da3 03:04 03:04 PMHx: Anxiety; da3 da3 03:04 03:04 PSHx: right inguinal hernia; da3 da3
[2021-05-12 06:23] VITALS: TEMP 98.7
[2021-05-12 06:29] VITALS: BP 114/82; O2SAT 99
[2021-05-15 04:14] LABS: C.trachomatis RNA,TMA Not Detected (Not Detected)
== END 2021-05-12 06:16 | disposition home or self-care (01) ==
LOC: ER 02:49
DX: R10.10 Upper abdominal pain, unspecified (principal)
CPT/HCPCS: 36415; 80048; 80076; 83690; 85025; 87490; 87590; 99283

== ENCOUNTER 2022-01-14 11:47 | Emergency (ER) | payer SELFPAY ==
--- OUTSIDE RECORDS SUMMARY | 2022-01-14 11:49 | XMS REPORT | Continuity of Care Document ---
:1975 Author Organization [facility] t Address [address] [place] [address] Care Team Providers Name Role Phone PCP, PATIENT DOES NOT HAVE A Primary Care Physician Unavaila BRAN Cartagena Attending Clinician Unavailable Bran Red DO Attending Clinician BRAN RED Admitting Clinician Unavailable Payers Payer Name Policy Type Policy Number Effective Date Expiration Date [facility] [id number] 2014 MEDICAID 00:00:00 Problems Condition Condition Condition Status Onset Resolution Last Treating Co mments Source Name Details Category Date Date Treatment Clinician Date Paresthesi Paresthes Problem Active 2018-12-15 Memoria a ia 11:44:54 l (finding) (finding) Herm binu Active Problem 12/15/2018 [facility] Stomach Stomach Problem Active 2018-12-15 Me moria ache ache 11:44:54 l (finding) (finding) Herm binu Active Problem 12/15/2018 [facility] Bipolar Bipolar Disease Active Overview: Univ ers disorder disorder Formattin ity of g of this [place] note Medical might be Branch different from the original. 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 Allergies, Adverse Reactions, Alerts Allergy Allergy [...] Quantity Comments Source Exposure to Not sure [facility] SARS-CoV-2 [place] [facility] (event) Branch Alcohol intake 2018-05-26 2018-05-26 Current [facility] 00:00:00 00:00:00 non-drinker of [facility] alcohol [place] (finding) Sex Assigned At [birth year] [facility] 00:00:00 00:00:00 [facility] Smoking Status Start Date Stop Date Source Never smoker [facility] Social History [facility] Medications Ordered Filled Start Stop Current Ordering Indication Dosage Frequency Signature Comments Components Source Medication Medication Date Date Medication? Clinician (SIG) Name Name iopamidol 2020-06- No [id number] 120mL 120 mL, Univers (ISOVUE 06-27 Intravenou ity o f 370-500 mL) 17:15: 16:04 s, ONCE, 1 [place] injection 00 :00 dose, On Medica l 120 mL [facility] 04/27/21 at 1115, Routine ondansetron 2020-06- No 4mg 4 mg, Slow Univers (ZOFRAN 06-27 IV Push, ity of (PF)) 16:45: 15:45 ONCE, 1 [place] injection 4 00 :00 dose, On Medi faina mg [facility] 04/27/21 at 1045, Routine sucralfate 2020-06 Yes [id number] 1g Take 1 U nivers 1 gram -22 tablet by ity of tablet 00:00: mouth [place] 00 before Medical meals and Branch at bedtime. dicyclomine 2020-06 Yes [id number] 10mg Take 1 Univers (BENTYL) 10 - capsule by it y of mg capsule 00:00: mouth [place] 00 every 8 Medical (eight) Branch hours as needed for Abdominal pain. ondansetron 2020-06 Yes [id number] 4mg Take 1 Univers 4 mg -22 tablet by ity of disintegrat 00:00: mouth [place] ing tablet 00 every 8 Medica l (eight) Branch hours as needed for Nausea and Vomiting (N/V). omeprazole 2020-06- No [id number] 20mg Take 1 Univers 20 mg 06-27 capsule by ity of capsule 00:00: 05:59 mouth [place] 00 :00 daily for Medical 30 days. Branch nystatin Yes [id number] 926848O Take 5 mL Univers 100,000 1-25 by mouth 4 ity of unit/mL 00:00: (four) [place] suspension 00 times Medical daily. Branch ondansetron Yes [id number] 4mg Take 1 Univers 4 mg tablet 1-25 tablet by ity of 00:00: mouth [place] 00 every 8 Medical (eight) Branch hours as needed for Nausea and Vomiting (N/V). Famotidine 2017-06 No 20 mg = 1 Me moria 0-11 tab, PO, l 15:33: Q12H, 0 Refill(s) Ciprofloxac 2017-06 No 500 mg, Mem oria in 0-11 PO, Q12H, l 15:33: 0 [place] 00 Refill(s) hydrOXYzine 2017-06 No 25 mg, [...] Branch times daily. CALCIUM Yes Take by Univers CARBONATE 3-02 mouth. ity of (CALCIUM 14:20: [place] 500 ORAL) Medical [place] Vital Signs Vital Name Observation Time Observation Value Comments Source Systolic blood 2021-04-27 17:30:43 120 mm[Hg] Univer sity of pressure [facility] Diastolic blood 2021-04-27 17:30:43 75 mm[Hg] Unive rsity of pressure [facility] Heart rate 2021-04-27 17:30:43 70 /min [facility] Body temperature 2021-04-27 17:30:43 36.78 Carol [facility] Respiratory rate 2021-04-27 17:30:43 18 /min [facility] Oxygen saturation in 2021-04-27 17:30:43 100 /min [facility] Arterial blood by [facility] Pulse oximetry Branch Heart Rate 2018-03-16 15:31:00 [facility] Cal Weight 2018-03-16 15:31:00 [facility] Height 2018-03-16 15:31:00 180.34 cm [facility] BMI Calculated 2018-03-16 15:31:00 Quang Malagon Systolic (mm Hg) 2018-03-16 15:31:00 Ming Mccall Diastolic (mm Hg) 2018-03-16 15:31:00 Mem dequan Mccall Procedures Procedure Date / Time Performed Performing Clinician Danyell gadiel CT ABDOMEN PELVIS W 2021-04-27 16:08:21 Bran Red [facility] CONTRAST [facility] LIPASE 2021-04-27 15:45:00 Singer [facility] COMP. METABOLIC PANEL 2021-04-27 15:45:00 Bran Red [facility] ([id number]) [facility] CBC WITH DIFF 2021-04-27 15:45:00 Singer [facility] URINALYSIS 2021-04-27 15:45:00 Singer [facility] NOTICE OF PRIVACY 2021-04-27 14:21:16 Doctor Unassigned, No Univ [facility] PRACTICES Name Medical Branch CONSENT/REFUSAL FOR 2021-04-27 14:20:59 Doctor [facility]assigned, No [facility] AND Name Medical Branch TREATMENT Encounters Start End Encounter Admission Attending Care Care Encounter Source Date/Time Date/Time Type Type Clinicians Facility Department ID 2021-04-27 2021-04-27 Emergency X , [facility] ERT [id number] Univers 08:27:00 11:54:00 BRAN ayala [facility] 2021-04-27 2021-04-27 Emergency , [facility] [id number] Univers 08:27:00 11:54:00 Bran CARMONA [id number] i ty [facility] [id number] [facility] [id number] [place] [address] Branch 2018-05-26 2018-05-28 Outside nullFlavo MNA [id number] Memoria 16:20:00 05:59:59 Medical r Neurology 02 l Records Payal Mccall 2018-04-21 2018-04-21 Ambulatory nullFlavo MNA [id number] Memoria 17:15:00 17:15:00 Pre-Reg r Neurology 01 l Payal Mccall 2018-03-22 2018-03-24 Outside nullFlavo MNA [id number] Memoria 22:51:00 04:59:59 Medical r Neurology 01 l Records Payal Mccall 2018-03-22 2018-03-24 Phone nullFlavo MNA [id number] Memoria 21:22:00 04:59:59 Message r Neurology 00 l Payal Mccall 2018-03-16 2018-03-17 Outpatient nullFlavo MNA [id number] Memoria 16:00:00 04:59:59 r Neurology 00 l [...] 34.5 g/dL 31.2-35.0 RDW-SD (test code = 50633-0) 39.9 fL 38.5-51.6 RDW-CV (test code = 788-0) 12.4 % 12.1-15.4 PLT (test code = 777-3) See_Comment L [Au tomated message] The system which Clinicient nerated this result transmit malorie reference range: 150 - 32 8 10*3/?L. The reference range was not used to interpret th is result as normal/abnormal . MPV (test code = 00154-4) 10.6 fL 9.8-13.0 IPF % (test code = 3.9 % 1.2-10.7 Platelet count measured by [id number]) fluorescence me thod. NRBC/100 WBC (test code = See_Comment [ Automated message] The [id number]) system which Clinicient nerated this result transmit malorie reference range: 0.0 - 10 .0 /100 WBCs. The reference r elizabeth was not used to interpr et this result as normal/abnor mal. NRBC x10^3 (test code = <0.01 See_Comment [Au tomated message] The 3109212543) system which Clinicient nerated this result transmit malorie reference range: 10*3/?L. The reference range was not u sed to interpret this result as normal/abnormal . GRAN MAT (NEUT) % (test code 45.9 % = 770-8) IMM GRAN % (test code = 0.20 % 5810255402) LYMPH % (test code = 736-9) 41.6 % MONO % (test code = 5905-5) 5.3 % EOS % (test code = 713-8) 6.5 % BASO % (test code = 706-2) 0.5 % GRAN MAT x10^3(ANC) (test 2.59 10*3/uL 1.99-6.95 code = 2127633560) IMM GRAN x10^3 (test code = <0.03 0.00-0.06 6713119280) LYMPH x10^3 (test code = 2.35 10*3/uL 1.09-3.23 731-0) MONO x10^3 (test code = 0.30 10*3/uL 0.36-1.02 L 742-7) EOS x10^3 (test code = 0.37 10*3/uL 0.06-0.53 711-2) BASO x10^3 (test code = 0.03 10*3/uL 0.01-0.09 704-7) Lab Interpretation (test Abnormal code = 75338-3) [facility]. METABOLIC PANEL (02357)2021-04-27 16:20:53 Test Item Value Reference Range Interpretation Comments NA (test code = 138 mmol/L 135-145 4309642315) K (test code = 4.3 mmol/L 3.5-5.0 3976282922) CL (test code = 104 mmol/L 98-108 1699662392) CO2 TOTAL (test code 28 mmol/L 23-31 = 2590087345) AGAP (test code = 2-16 1445010475) BUN (test code = 10 mg/dL 7-23 1015673735) GLUCOSE (test code = 95 mg/dL 70-110 5835650085) CREATININE (test code 0.93 mg/dL 0.60-1.25 = 7887210165) TOTAL BILI (test code 1.1 mg/dL 0.1-1.1 = 7522523453) CALCIUM (test code = 9.2 mg/dL 8.6-10.6 0745903091) T PROTEIN (test code 7.3 g/dL 6.3-8.2 = 9386309665) ALBUMIN (test code = 4.2 g/dL 3.5-5.0 2460319634) ALK PHOS (test code = 55 U/L 34-122 7250640164) ALTv (test code = 21 U/L 5-50 1742-6) AST(SGOT) (test code 28 U/L 13-40 = 9266975530) eGFR (test code = mL/min/1.73m2 5215311132) ABA (test code = ABA) Association of [...] or urine or abnormalities in imaging tests). [facility] Test Item Value Reference Range Interpretation Comments LIPASE (test code = 0825456950) 58 U/L 0-220 Lab Interpretation (test code = Normal 45999-2) [facility]"
[2022-01-14] MEDS ORDERED: ONDANSETRON 4 MG/2 ML VIAL ONE (12:39)
[2022-01-14] MEDS ORDERED: NA CHLORIDE 0.9% 1,000 ML ONE (12:39)
[2022-01-14 12:56] LABS: Absolute Lymphocytes (CBC) 2.2 K/uL (0.7-4.9); Hematocrit 41.3 % (39.6-49.0); Lymphocytes % 26.7 % (15.3-44.8); MCV 84.6 fL (80-100); MPV 8.6 fL (7.6-11.3); RBC Red Blood Cell Count 4.88 M/uL (4.33-5.43)
[2022-01-14 13:10] LABS: Albumin 3.6 g/dL (3.4-5.0); Bilirubin Total 0.7 mg/dL (0.2-1.0); Potassium 3.8 mmol/L (3.5-5.1); Protein, Total 7.2 g/dL (6.4-8.2); Troponin High Sensitivity 8.5 pg/mL (<58.9)
--- NOTE | 2022-01-14 13:32 | RAD REPORT ---
EXAM DESCRIPTION: RAD - Chest Pa And Lat (2 Views) - 01/14/2022 12:49 pm CLINICAL HISTORY: COUGH Chest pain. COMPARISON: Chest Pa And Lat (2 Views) dated 03/10/2021; Chest Single View dated 03/04/2018; CHEST SIN GLE VIEW dated 12/30/2014; ABDOMEN 1 VIEW KUB dated 01/02/2008 FINDINGS: The lungs are clear. The heart is normal in size. No displaced fractures. IMPRESSION: No acute or concerning finding suspected.
--- NOTE | 2022-01-14 13:59 | RAD REPORT ---
EXAM DESCRIPTION: CTAbdomen Pelvis W Contrast - 01/14/2022 1:48 pm CLINICAL HISTORY: Abdominal pain. Right sided abdominal pain COMPARISON: Abdomen Pelvis W Contrast dated 04/25/2021; Abdomen Pelvis W Contrast dated 8; Abdomen Pelvis W Contrast dated 02/16/2018 TECHNIQUE: Biphasic CT imaging of the abdomen and pelvis was performed with 100 ml non-ionic IV cont rast. All CT scans are performed using dose optimization technique as appropriate and may include automated exposure control or mA/KV adjustment according to patient size. FINDINGS: The lung bases are clear. The liver contains several benign cysts. The spleen, pancreas, adrenal glands and kidneys are within normal limits. No bowel obstruction, free air, free fluid or abscess. Moderate stool is present throughout the colon . The appendix is normal. No evidence of significant lymphadenopathy. No suspicious bony findings. IMPRESSION: No acute intra-abdominal or pelvic finding.
--- NOTE | 2022-01-14 14:40 | EDPHYS ---
Physician Documentation [facility] Name: Juan Campos Age: 46 yrs Sex: Male : 1975 Arrival Date: 01/14/2022 Time: 11:48 Bed 24 Private MD: ED Physician Caden Alcala HPI: 01/14 12:24 This 46 yrs old Male presents to ER via Ambulatory with complaints of Abdominal Pain, pm1 Dizziness. 12:24 The patient presents with abdominal pain that is diffuse. Onset: The symptoms/episode pm1 began/occurred yesterday. The symptoms do not radiate. Associated signs and symptoms: Pertinent positives: chest pain, shortness of breath, Pertinent negatives: nausea, vomiting, and diarrhea. The symptoms are described as achy. Modifying factors: The symptoms are alleviated by nothing, the symptoms are aggravated by Exposure to family member with similar symptoms. Daughter diagnosed with COVID recently. Severity of pain: in the emergency department the pain is actually worse. The patient has not experienced similar symptoms in the past. The patient has not recently seen a physician. Patient presenting to ER with complaints of abdominal pain, dizziness, chest pain, shortness of breath. Patient with productive cough. Patient feels that he has COVID. 12:24 Additionally patient concerned that he may have possible STD. Last time he was pm1 diagnosed here in the ER his was not treated and he is reporting dribbling of urine. Historical: - Allergies: 11:55 No Known Allergies; bm7 - Home Meds: 11:55 None [Active]; bm7 - PMHx: 11:55 Sexually transmitted infectious disease; bm7 - PSHx: 11:55 Vasectomy; bm7 - Immunization history:: Adult Immunizations up to date. - Social history:: Smoking status: Patient/guardian denies using tobacco products. ROS: 12:24 Constitutional: Negative for fever, chills, and weight loss. pm1 12:24 Back: Negative for injury and pain, MS/Extremity: Negative for injury and deformity, Skin: Negative for injury, rash, and discoloration, Neuro: Negative for headache, weakness, numbness, tingling, and seizure. 12:24 Cardiovascular: Positive for chest pain, Negative for edema, palpitations. 12:24 Respiratory: Positive for cough, "sounds productive", shortness of breath. 12:24 Abdomen/GI: Positive for abdominal pain, of the abdomen diffusely, Negative for nausea, vomiting, and diarrhea. 12:24 All other systems are negative. Exam: 12:24 Constitutional: This is a well developed, well nourished patient who is awake, alert, pm1 and in no acute distress. Head/Face: Normocephalic, atraumatic. 12:24 Back: No spinal tenderness. No costovertebral tenderness. Full range of motion. Skin: Warm, dry with normal turgor. Normal color with no rashes, no lesions, and no evidence of cellulitis. MS/ Extremity: Pulses equal, no cyanosis. Neurovascular intact. Full, normal range of motion. 12:24 Cardiovascular: Exam negative for acute changes, Rate: normal, Rhythm: regular, Pulses: no pulse deficits are appreciated, Heart sounds: normal, normal S1and S2, Edema: is not appreciated. 12:24 Respiratory: Exam negative for acute changes, respiratory distress, shortness of breath, Breath sounds: are clear throughout. 12:24 Abdomen/GI: Exam negative for acute changes, Inspection: abdomen appears normal, Palpation: soft, in all quadrants, mild abdominal tenderness, in the abdomen diffusely. 12:24 Neuro: Exam negative for acute changes, Orientation: is normal, Mentation: is normal, Motor: is normal, moves all fours. Vital Signs: 11:54 BP 117 / 71; Pulse 83; Resp 16; Temp 97.5(TE); Pulse Ox 100% on R/A; Weight 81.65 kg bm7 (M); Height 5 ft. 9 in. (175.26 cm); Pain 0/10; 12:00 BP 111 / 79; Pulse 78; Resp 16; Pulse Ox 100% on R/A; tp1 13:00 BP 136 / 75; Pulse 76; Resp 16; Pulse Ox 100% on R/A; tp1 14:00 BP 115 / 79; Pulse 79; Resp 16; Pulse Ox 100% on R/A; tp1 14:50 BP 123 / 87; Pulse 79; Resp 16; Pulse Ox 100% on R/A; tp1 11:54 Body Mass Index 26.58 (81.65 kg, 175.26 cm) bm7 MDM: 11:52 Patient medically screened. pm1 14:38 Data reviewed: vital signs. Data interpreted: Pulse oximetry: on room air is 100 %. pm1 Interpretation: normal. 14:38 Counseling: I had a detailed discussion with the patient and/or guardian regarding: the pm1 historical points, exam findings, and any diagnostic results supporting the discharge/admit diagnosis, lab results, radiology results, the need for outpatient follow up, a family practitioner, to return to the emergency department if symptoms worsen or persist or if there are any questions or concerns that arise at home. 01/14 12:24 Order name: COVID-19 SARS RT PCR (Document "Date of Onset" if Symptomatic); Complete pm1 Time: 14:40 01/14 12:24 Order name: Flu; Complete Time: 13:45 pm1 01/14 12:24 Order name: CBC with Diff; Complete Time: 13:06 pm1 01/14 12:24 Order name: CMP; Complete Time: 13:12 pm1 01/14 12:24 Order name: Lipase; Complete Time: 13:12 pm1 01/14 12:24 Order name: Troponin High Sensitivity; Complete Time: 13:12 pm1 01/14 12:24 Order name: Chest Pa And Lat (2 Views) XRAY; Complete Time: 13:33 pm1 01/14 12:39 Order name: Urine Microscopic Only; Complete Time: 14:49 pm1 01/14 13:19 Order name: GC (Raymundo/Chl) Probe URINE EDMS 01/14 13:25 Order name: CT Abd/Pelvis - IV Contrast Only; Complete Time: 14:01 pm1 01/14 12:24 Order name: IV Saline Lock; Complete Time: 12:27 pm1 01/14 12:24 Order name: Labs collected and sent; Complete Time: 12:27 pm1 01/14 12:24 Order name: EKG; Complete Time: 12:26 pm1 01/14 12:24 Order name: EKG - Nurse/Tech; Complete Time: 12:50 pm1 EC:13 Rate is 76 beats/min. Rhythm is regular, Normal Sinus Rhythm with No ectopy. QRS [place] pm1 is Normal. [place] interval is normal. QRS interval is normal. QT interval is normal. No Q waves. T waves are Normal. No ST changes noted. Clinical impression: Normal ECG. Administered Medications: 12:34 Drug: NS 0.9% 1000 ml Route: IV; Rate: 1 bolus; Site: left antecubital; tp1 15:01 Follow up: IV Status: Completed infusion; IV Intake: 1000ml tp1 12:37 Drug: Zofran (Ondansetron) 4 mg Route: IVP; Site: left antecubital; tp1 12:50 Follow up: Response: Nausea is decreased tp1 14:55 Drug: Zithromax (azithromycin) 1 grams Route: PO; tp1 15:03 Follow up: Response: Medication administered at discharge. tp1 14:58 Drug: Rocephin (cefTRIAXone) 1 grams Route: IM; Site: right ventrogluteal; tp1 15:03 Follow up: Response: Medication administered at discharge. tp1 Disposition: 21:03 Co-signature as Attending Physician, Caden Alcala DO I was immediately available on-site ms3 in the Emergency Department for consultation in the care of the patient. . Disposition Summary: 01/14/22 14:39 Discharge Ordered Location: Home pm1 Problem: new pm1 Symptoms: have improved pm1 Condition: Stable pm1 Diagnosis - Coronavirus infection, unspecified pm1 - Abdominal pain, unspecified pm1 Followup: pm1 - With: Emergency Department - When: As needed - Reason: Worsening of condition Followup: pm1 - With: Private Physician - When: 2 - 3 days - Reason: Recheck today's complaints, Continuance of care, Re-evaluation by your physician Discharge Instructions: - Discharge Summary Sheet pm1 - Abdominal Pain, Adult pm1 - COVID-19 pm1 - COVID-19 Frequently Asked Questions pm1 - 10 Things You Can Do to Manage Your COVID-19 Symptoms at Home - [facility] pm1 - COVID-19: Quarantine vs. Isolation - [facility] pm1 Forms: - Medication Reconciliation Form pm1 - Thank You Letter pm1 - Antibiotic Education pm1 - Prescription Opioid Use pm1 Signatures: Dispatcher [employer] EDMusa Hendrickson, [employer] pm1 Caden Alcala DO DO ms3 Adrienne Holguin, RN RN bm7 Joya Perdomo RN RN tp1
--- NOTE | 2022-01-14 14:40 | ER ---
Nurse's Notes [facility] [place] Name: Juan Campos Age: 46 yrs Sex: Male : 1975 Arrival Date: 01/14/2022 Time: 11:48 Bed 24 Private MD: Diagnosis: Coronavirus infection, unspecified;Abdominal pain, unspecified Presentation: 01/14 11:54 Chief complaint: Patient states: A few days ago I started having body chills, sweats, bm7 headaches, nausea, and vomiting and I think I might have COVID. Coronavirus screen: At this time, the client does not indicate any symptoms associated with coronavirus-19. Ebola Screen: No symptoms or risks identified at this time. Initial Sepsis Screen: Does the patient meet any 2 criteria? No. Patient's initial sepsis screen is negative. Does the patient have a suspected source of infection? No. Patient's initial sepsis screen is negative. Risk Assessment: Do you want to hurt yourself or someone else? Patient reports no desire to harm self or others. Onset of symptoms was January 14, 2022. 11:54 Method Of Arrival: Ambulatory [facility] 11:54 Acuity: [place] 4 bm7 Triage Assessment: 11:55 General: Appears in no apparent distress. comfortable. General: Appears Behavior is bm7 calm, cooperative, appropriate for age. Pain: Denies pain. Pain: Complains of pain in forehead Pain does not radiate. EENT: No deficits noted. No signs and/or symptoms were reported regarding the EENT system. Neuro: No deficits noted. Cardiovascular: No deficits noted. Respiratory: No deficits noted. GI: Reports gaseousness, nausea, vomiting. : No deficits noted. No signs and/or symptoms were reported regarding the genitourinary system. Derm: No deficits noted. No signs and/or symptoms reported regarding the dermatologic system. Musculoskeletal: No deficits noted. No signs and/or symptoms reported regarding the musculoskeletal system. Historical: - Allergies: : No Known Allergies; bm7 - Home Meds: : None [Active]; bm7 - PMHx: 11:55 Sexually transmitted infectious disease; bm7 - PSHx: 11:55 Vasectomy; bm7 - Immunization history:: Adult Immunizations up to date. - Social history:: Smoking status: Patient/guardian denies using tobacco products. Screenin:53 Abuse screen: Denies threats or abuse. Nutritional screening: No deficits noted. tp1 Tuberculosis screening: No symptoms or risk factors identified. Fall Risk No fall in past 12 months (0 pts). IV access (20 points). Ambulatory Aid- None/Bed Rest/Nurse Assist (0 pts). Gait- Normal/Bed Rest/Wheelchair (0 pts) Mental Status- Oriented to own ability (0 pts). Total Matson Fall Scale indicates No Risk (0-24 pts). Assessment: 12:00 General: Appears in no apparent distress. comfortable, Behavior is cooperative, tp1 anxious. Pain: Complains of pain in chest and abdomen and forehead and groin Pain does not radiate. Pain currently is 8 out of 10 on a pain scale. Quality of pain is described as aching, Pain began 2-3 days ago. Is continuous. Neuro: Level of Consciousness is awake, alert, obeys commands, Oriented to person, place, time, situation. Neuro: Reports dizziness, headache numbness in hand and bilateral arms. Cardiovascular: Reports chest pain, Patient's skin is warm and dry. nail beds appear blue bilaterally. Respiratory: Reports shortness of breath cough that is productive, pain with cough Airway is patent Respiratory effort is even, unlabored. GI: Abdomen is round distended. GI: Bowel sounds present X 4 quads. Abd is soft Abd is non tender in left lower quadrant Reports constipation, diarrhea, nausea, vomiting. : Reports urinary frequency. EENT: No signs and/or symptoms were reported regarding the EENT system. Derm: Skin is pink, warm \\T\\ dry. Musculoskeletal: Circulation, motion, and sensation intact. 13:03 Reassessment: Patient appears in no apparent distress at this time. No changes from tp1 previously documented assessment. Patient and/or family updated on plan of care and expected duration. Pain level reassessed. Patient is alert, oriented x 3, equal unlabored respirations, skin warm/dry/pink. states nausea is unchanged. 14:03 Reassessment: Patient appears in no apparent distress at this time. No changes from tp1 previously documented assessment. Patient and/or family updated on plan of care and expected duration. Pain level reassessed. Patient is alert, oriented x 3, equal unlabored respirations, skin warm/dry/pink. Continues to CO 7/10 pain. resting in bed on phone. Vital Signs: 11:54 BP 117 / 71; Pulse 83; Resp 16; Temp 97.5(TE); Pulse Ox 100% on R/A; Weight 81.65 kg bm7 (M); Height 5 ft. 9 in. (175.26 cm); Pain 0/10; 12:00 BP 111 / 79; Pulse 78; Resp 16; Pulse Ox 100% on R/A; tp1 13:00 BP 136 / 75; Pulse 76; Resp 16; Pulse Ox 100% on R/A; tp1 14:00 BP 115 / 79; Pulse 79; Resp 16; Pulse Ox 100% on R/A; tp1 14:50 BP 123 / 87; Pulse 79; Resp 16; Pulse Ox 100% on R/A; tp1 11:54 Body Mass Index 26.58 (81.65 kg, 175.26 cm) bm7 ED Course: 11:48 Patient arrived in ED. mr 11:51 Musa Merino NP is PHCP. pm1 11:51 Caden Alcala DO is Attending Physician. pm1 11:55 Triage completed. bm7 11:55 Arm band placed on right wrist. bm7 11:57 Joya Perdomo, DRAKE is Primary Nurse. tp1 12:00 Bed in low position. Call light in reach. Adult w/ patient. tp1 12:00 Door closed. Noise minimized. tp1 12:13 Inserted saline lock: 20 gauge in left antecubital area, using aseptic technique. Blood tp1 collected. 12:13 EKG done, by ED staff. tp1 12:50 Flu Sent. tp1 12:50 COVID-19 SARS RT PCR (Document "Date of Onset" if Symptomatic) Sent. tp1 12:51 Chest Pa And Lat (2 Views) XRAY In Process Unspecified. EDMS 12:51 Patient moved back from CT. tp1 12:51 Missed attempt(s): 20 gauge in right antecubital area. Bleeding controlled, band aid tp1 applied, catheter tip intact. 12:52 Pulse ox on. NIBP on. tp1 13:50 CT Abd/Pelvis - IV Contrast Only In Process Unspecified. EDMS 15:00 IV discontinued, intact, bleeding controlled, No redness/swelling at site. Pressure tp1 dressing applied. 15:02 No provider procedures requiring assistance completed. tp1 Administered Medications: 12:34 Drug: NS 0.9% 1000 ml Route: IV; Rate: 1 bolus; Site: left antecubital; tp1 15:01 Follow up: IV Status: Completed infusion; IV Intake: 1000ml tp1 12:37 Drug: Zofran (Ondansetron) 4 mg Route: IVP; Site: left antecubital; tp1 12:50 Follow up: Response: Nausea is decreased tp1 14:55 Drug: Zithromax (azithromycin) 1 grams Route: PO; tp1 15:03 Follow up: Response: Medication administered at discharge. tp1 14:58 Drug: Rocephin (cefTRIAXone) 1 grams Route: IM; Site: right ventrogluteal; tp1 15:03 Follow up: Response: Medication administered at discharge. tp1 Medication: 12:00 VIS not applicable for this client. tp1 Intake: 15:01 IV: 1000ml; Total: 1000ml. tp1 Outcome: 14:39 Discharge ordered by MD. pm1 15:03 Discharged to home ambulatory. tp1 15:03 Condition: good 15:03 Discharge instructions given to patient, Instructed on discharge instructions, follow up and referral plans. Demonstrated understanding of instructions, follow-up care. 15:03 Patient left the ED. tp1 Signatures: Dispatcher [employer] ERIKMS Santos Radha MerinoMusa, BOBBIN PRESSER BOBBIN PRESSER pm1 Adrienne Holguin, DRAKE RN bm7 Joya Perdomo RN RN tp1 Corrections: (The following items were deleted from the chart) 12:51 12:50 Inserted saline lock: 20 gauge in left antecubital area, using aseptic technique. tp1 Blood collected. tp1 13:03 12:00 GI: Abd is soft Abd is non tender in left lower quadrant Reports constipation, tp1 diarrhea, nausea, vomiting, tp1 13:20 12:00 BP 111 / 79; Pulse 78bpm; Pulse Ox 100% RA; tp1 tp1 14:38 14:03 Reassessment: Patient appears in no apparent distress at this time. No changes tp1 from previously documented assessment. Patient and/or family updated on plan of care and expected duration. Pain level reassessed. Patient is alert, oriented x 3, equal unlabored respirations, skin warm/dry/pink. Continues to CO 7/10 pain tp1
[2022-01-14 14:42] LABS: Urine RBC <5 /HPF (None Seen)
[2022-01-14 14:43] LABS: Urine Bacteria <20 /HPF (<20)
[2022-01-14] MEDS ORDERED: AZITHROMYCIN 250 MG TAB ONE (14:58)
[2022-01-14] MEDS ORDERED: LIDOCAINE 1% MPF 2 ML AMPULE ONE (14:59)
[2022-01-14] MEDS ORDERED: CEFTRIAXONE 1000 MG/VIAL ONE (14:59)
[2022-01-14 16:35] VITALS: TEMP 97.5; O2SAT 100
[2022-01-14 16:58] VITALS: BP 123/87
--- NOTE | 2022-01-15 13:33 | EKG ---
Test Date: 2022-01-14 Test Time: 12:44:36 Cook Morning: TP MEASUREMENT RESULTS: Intervals: Rate: 76 MS: 140 QRSD: 96 QT: 364 QTc: 409 [place]: P: 61 MS: 140 QRS: 58 T: 56 INTERPRETIVE STATEMENTS: Normal sinus rhythm Normal ECG Compared to ECG 07/01/2018 05:31:32 No significant changes Electronically Signed On 01-15-22 13:32:28 CDT by Mickey Doan
== END 2022-01-14 15:03 | disposition home or self-care (01) ==
LOC: ER 11:47
DX: U07.1 COVID-19 (principal); R10.9 Unspecified abdominal pain
CPT/HCPCS: 36415; 71046; 74177; 80053; 81015; 83690; 84484; 85025; 87490; 87590; 87804; 93005; 96361; 96372; 96374; 99284; J2405; J7030; Q9967; U0003

== ENCOUNTER 2022-04-26 10:47 | Emergency (ER) | payer OTHER ==
--- OUTSIDE RECORDS SUMMARY | 2022-04-26 12:01 | XMS REPORT | Continuity of Care Document ---
:1975 Author Organization [facility] t Address [address] [place] [address] Care Team Providers Name Role Phone PCP, PATIENT DOES NOT HAVE A Primary Care Physician Unavaila BRAN Cartagena Attending Clinician Unavailable Bran Red DO Attending Clinician Bebeto Woody Attending Clinician BRAN RED Admitting Clinician Unavailable Payers Payer Name Policy Type Policy Number Effective Date Expiration Date [facility] [id number] 2014 MEDICAID 00:00:00 Problems Condition Condition Condition Status Onset Resolution Last Treating Co mments Source Name Details Category Date Date Treatment Clinician Date Paresthesi Paresthes Problem Active 2018-12-15 Memoria a ia 11:44:54 l (finding) (finding) Milana binu Active Problem 12/15/2018 [facility] Stomach Stomach Problem Active 2018-12-15 Me moria ache ache 11:44:54 l (finding) (finding) Herm binu Active Problem 12/15/2018 [facility] Bipolar Bipolar Disease Active Overview: Univ ers disorder disorder Formattin ity of g of this [place] note Medical might be Branch different from the original. 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 Social History [facility] Medications Ordered Filled Start Stop Current Ordering Indication Dosage Frequency Signature Comments Components Source Medication Medication Date Date Medication? Clinician (SIG) Name Name iopamidol 2020-06- No [id number] 120mL 120 mL, Univers (ISOVUE 06-27 Intravenou ity o f 370-500 mL) 17:15: 16:04 s, ONCE, 1 [place] injection 00 :00 dose, On Medica l 120 mL [facility] Branch 04/27/21 at 1115, Routine ondansetron 2020-06- No 4mg 4 mg, Slow Univers (ZOFRAN 06-27 IV Push, ity of (PF)) 16:45: 15:45 ONCE, 1 [place] injection 4 00 :00 dose, On Medi faina mg [facility] 04/27/21 at 1045, Routine sucralfate 2020-06 Yes [id number] 1g Take 1 U nivers 1 gram -22 tablet by ity of tablet 00:00: mouth [place] 00 before Medical meals and Branch at bedtime. dicyclomine 2020-06 Yes [id number] 10mg Take 1 Univers (BENTYL) 10 -22 capsule by it y of mg capsule 00:00: mouth [place] 00 every 8 Medical (eight) Branch hours as needed for Abdominal pain. ondansetron 2020-06 Yes [id number] 4mg Take 1 Univers 4 mg -22 tablet by ity of disintegrat 00:00: mouth [place] ing tablet 00 every 8 Medica l (eight) Branch hours as needed for Nausea and Vomiting (N/V). omeprazole 2020-06- No [id number] 20mg Take 1 Univers 20 mg 06-27-23 capsule by ity of capsule 00:00: 05:59 mouth [place] 00 :00 daily for Medical 30 days. Branch nystatin Yes [id number] Take 5 mL Univers 100,000 1-25 by mouth 4 ity of unit/mL 00:00: (four) [place] suspension 00 times Medical daily. Branch ondansetron Yes [id number] 4mg Take 1 Univers 4 mg tablet 1-25 tablet by ity of 00:00: mouth [place] 00 every 8 Medical (eight) Branch hours as needed for Nausea and Vomiting (N/V). Omeprazole 2017-06 No 40 mg, PO, M emoria 0-11 Daily, 0 l 15:33: Refill(s) Metronidazo 2017-06 No 500 mg [...] 0-11 tab, PO, l 15:33: Q12H, 0 [facility] 00 Refill(s) Ciprofloxac 2017-06 No 500 mg, Mem oria in 0-11 PO, Q12H, l 15:33: 0 Cal 00 Refill(s) hydrOXYzine 2017-06 No 25 mg, PO, Memoria hydrochlori 0-11 Q6H, 0 l de 15:33: Refill(s) Dicyclomine 2017-06 No 20 mg, PO, Memoria 0-11 Q6H, 0 l 15:33: Refill(s) ondansetron 2017-06 No 4 mg = 1 Me moria 4 mg oral 0-11 tab, PO, l tablet 15:33: Q12H, 0 Cal 00 Refill(s) Famotidine 2017-06 No 20 mg = 1 Me moria 0-11 tab, PO, l 15:33: Q12H, 0 [facility] 00 Refill(s) Ciprofloxac 2017-06 No 500 mg, Mem oria in 0-11 PO, Q12H, l 15:33: 0 [facility] 00 Refill(s) hydrOXYzine 2017-06 No 25 mg, PO, Memoria hydrochlori 0-11 Q6H, 0 l de 15:33: Refill(s) [facility] 00 Metronidazo 2017-06 No 500 mg = 1 Memoria le 0-11 tab, PO, l 15:33: Q6H, 0 Cal 00 Refill(s) omeprazole 2017-06 Univer s 40 mg 005 04-27 ity of capsule 00:00: 00:00 [place] 00 :00 [facility] hydrocortis Yes 25mg Insert 1 Un nelida one 8-24 Suppositor ity of (ANUSOL-HC) 00:00: y into [place] 25 mg 00 rectum 2 Medical suppository (two) Branch times daily. CALCIUM Yes Take by [facility] CARBONATE 02 mouth. ity of (CALCIUM 14:20: [place] 500 ORAL) [address] [place] [address] Vital Signs Vital Name Observation Time Observation Value Comments Source Systolic blood 2021-04-27 17:30:43 120 mm[Hg] [facility] Diastolic blood 2021-04-27 17:30:43 75 mm[Hg] [facility] Heart rate 2021-04-27 17:30:43 70 /min [facility] Body temperature 2021-04-27 17:30:43 36.78 Carol [facility] Respiratory rate 2021-04-27 17:30:43 18 /min [facility] Oxygen saturation in 2021-04-27 17:30:43 100 /min [facility] Arterial blood by [place] [facility] Pulse oximetry Branch Heart Rate 2018-03-16 15:31:00 [facility] Weight 2018-03-16 15:31:00 [facility] Height 2018-03-16 15:31:00 180.34 cm [facility] Cal BMI Calculated 2018-03-16 15:31:00 Quang stevens Cal Systolic (mm Hg) 2018-03-16 15:31:00 Ming mancia Cal Diastolic (mm Hg) 2018-03-16 15:31:00 Mem dequan Mccall Procedures Procedure Date / Time Performed Performing Clinician Zulema e CT ABDOMEN PELVIS W 2021-04-27 16:08:21 Bran Redi ty of [place] CONTRAST [facility] LIPASE 2021-04-27 15:45:00 [facility] COMP. METABOLIC PANEL 2021-04-27 15:45:00 Singer [facility] ([id number]) [facility] CBC WITH DIFF 2021-04-27 15:45:00 Red, [facility] URINALYSIS 2021-04-27 15:45:00 [facility] NOTICE OF PRIVACY 2021-04-27 14:21:16 Doctor Unassigned, No [facility] PRACTICES Name [facility] CONSENT/REFUSAL FOR 2021-04-27 14:20:59 Doctor Unassigned, No [facility] DIAGNOSIS AND [facility] TREATMENT Encounters Start End Encounter Admission Attending Care Care Encounter Source Date/Time Date/Time Type Type Clinicians Facility Department ID 2021-04-27 2021-04-27 Emergency X [facility] ERT [id number] Univers 08:27:00 11:54:00 BRAN ayala [facility] 2021-04-27 2021-04-27 Emergency [facility] [id number] Univers 08:27:00 11:54:00 Bran CARMONA [id number] i ty [facility] [id number] [facility] [id number] [facility] 084 Branch 2018-05-26 2018-05-28 Outside nullFlavo MNA [id number] Memoria 16:20:00 05:59:59 Medical r Neurology 02 l Records Payal Mccall 2018-05-26 2018-05-28 Outside nullFlavo MNA [id number] Memoria 16:20:00 05:59:59 Medical r Neurology 02 l Records Payal Mccall 2018-05-26 2018-05-27 Outpatient MHMISCHER MISCHER [id number] 10:20:00 23:59:59 02 2018-04-21 2018-04-21 Ambulatory nullFlavo MNA [id number] Memoria 17:15:00 17:15:00 Pre-Reg r Neurology 01 l Payal Mccall 2018-04-21 2018-04-21 Ambulatory nullFlavo MNA [id number] Memoria 17:15:00 17:15:00 Pre-Reg r Neurology 01 l Payal Mccall 2018-04-21 2018-04-21 Outpatient MHIE MHIE [id number] Memoria 11:15:00 11:15:00 01 miguel angel Mccall 2018-04-21 2018-04-21 Outpatient Bong [facility] [id number] 11:15:00 11:15:00 Bebeto Maury Marquis 2018-03-22 2018-03-24 Outside nullFlavo MNA [id number] Memoria 22:51:00 04:59:59 Medical r Neurology 01 l Records Payal Mccall 2018-03-22 2018-03-24 Outside nullFlavo MNA [id number] Memoria 22:51:00 04:59:59 Medical r Neurology 01 l Records Payal Mccall 2018-03-22 2018-03-24 Phone nullFlavo MNA [id number] Memoria 21:22:00 04:59:59 Message r Neurology 00 l Payal Mccall 2018-03-22 2018-03-24 Phone nullFlavo MNA [id number] Memoria 21:22:00 04:59:59 Message r Neurology 00 l Payal Mccall 2018-03-22 2018-03-23 Outpatient MHMISCHER MHMISCHER [id number] 17:51:00 23:59:59 2018-03-22 2018-03-23 Outpatient MHMISCHER MHMISCHER [id number] 16:22:00 23:59:59 00 2018-03-16 2018-03-17 Outpatient nullFlavo MNA [id number] Memoria 16:00:00 04:59:59 r Neurology 00 l Payal Mccall 2018-03-16 2018-03-17 Outpatient nullFlavo MNA [id number] Memoria 16:00:00 04:59:59 r Neurology 00 l Payal Mccall 2018-03-16 2018-03-16 Outpatient CHRISTINE oWody [facility] [id number] 11:00:00 23:59:59 Bebeto Venu Marquis 2018-03-16 2018-03-16 Outpatient GALO ROSENTHAL [id number] [facility] 11:00:00 11:00:00 00 l Cal Results Test Description Test Time Test Comments [...] 34.5 g/dL 31.2-35.0 RDW-SD (test code = 07934-7) 39.9 fL 38.5-51.6 RDW-CV (test code = 788-0) 12.4 % 12.1-15.4 PLT (test code = 777-3) See_Comment L [Au tomated message] The system which ge nerated this result transmit malorie reference range: 150 - 32 8 10*3/?L. The reference range was not used to interpret th is result as normal/abnormal . MPV (test code = 18395-7) 10.6 fL 9.8-13.0 IPF % (test code = 3.9 % 1.2-10.7 Platelet count measured by [id number]) fluorescence me thod. NRBC/100 WBC (test code = See_Comment [ Automated message] The [id number]) system which Liebo nerated this result transmit malorie reference range: 0.0 - 10 .0 /100 WBCs. The reference r elizabeth was not used to interpr et this result as normal/abnor mal. NRBC x10^3 (test code = <0.01 See_Comment [Au tomated message] The 1011784269) system which Liebo nerated this result transmit malorie reference range: 10*3/?L. The reference range was not u sed to interpret this result as normal/abnormal . GRAN MAT (NEUT) % (test code 45.9 % = 770-8) IMM GRAN % (test code = 0.20 % 6453517140) LYMPH % (test code = 736-9) 41.6 % MONO % (test code = 5905-5) 5.3 % EOS % (test code = 713-8) 6.5 % BASO % (test code = 706-2) 0.5 % GRAN MAT x10^3(ANC) (test 2.59 10*3/uL 1.99-6.95 code = 3587315850) IMM GRAN x10^3 (test code = <0.03 0.00-0.06 4349212951) LYMPH x10^3 (test code = 2.35 10*3/uL 1.09-3.23 731-0) MONO x10^3 (test code = 0.30 10*3/uL 0.36-1.02 L 742-7) EOS x10^3 (test code = 0.37 10*3/uL 0.06-0.53 711-2) BASO x10^3 (test code = 0.03 10*3/uL 0.01-0.09 704-7) Lab Interpretation (test Abnormal code = 24646-9) [facility][id number][facility]2021-[facility]-27 16:20:53 Test Item Value Reference Range Interpretation Comments NA (test code = 138 mmol/L 135-145 0480456331) K (test code = 4.3 mmol/L 3.5-5.0 5633304717) CL (test code = 104 mmol/L 98-108 6371126387) CO2 TOTAL (test code 28 mmol/L 23-31 = 6606632930) AGAP (test code = 2-16 4046586356) BUN (test code = 10 mg/dL 7-23 6894918142) GLUCOSE (test code = 95 mg/dL 70-110 4844101319) CREATININE (test code 0.93 mg/dL 0.60-1.25 = 3362737194) TOTAL BILI (test code 1.1 mg/dL 0.1-1.1 = 2759442579) CALCIUM (test code = 9.2 mg/dL 8.6-10.6 5982795093) T PROTEIN (test code 7.3 g/dL 6.3-8.2 = 0658380676) ALBUMIN (test code = 4.2 g/dL 3.5-5.0 2052066266) ALK PHOS (test code = 55 U/L 34-122 9492552767) ALTv (test code = 21 U/L 5-50 1742-6) AST(SGOT) (test code 28 U/L 13-40 = 9606427110) eGFR (test code = mL/min/1.73m2 2907452331) ABA (test code = ABA) Association of [...] urine or abnormalities in imaging tests). [facility] Test Item Value Reference Range Interpretation Comments LIPASE (test code = 8123761430) 58 U/L 0-220 Lab Interpretation (test code = Normal 24537-2) [facility]"
[2022-04-26] MEDS ORDERED: ONDANSETRON 4 MG/2 ML VIAL ONE (12:58)
[2022-04-26] MEDS ORDERED: NA CHLORIDE 0.9% 1,000 ML ONE (12:58)
[2022-04-26 13:22] LABS: Urine Blood Negative (Negative); Urine Glucose Negative (Negative); Urine Protein Negative (Negative)
[2022-04-26 13:24] LABS: Absolute Lymphocytes (CBC) 2.2 K/uL (0.7-4.9); Hematocrit 44.9 % (39.6-49.0); Lymphocytes % 37.3 % (15.3-44.8); MCV 85.7 fL (80-100); MPV 8.5 fL (7.6-11.3); RBC Red Blood Cell Count 5.24 M/uL (4.33-5.43)
[2022-04-26 13:41] LABS: Albumin 4.2 g/dL (3.4-5.0); Bilirubin Total 0.7 mg/dL (0.2-1.0); Potassium 3.8 mmol/L (3.5-5.1); Protein, Total 7.8 g/dL (6.4-8.2)
--- NOTE | 2022-04-26 14:21 | RAD REPORT ---
EXAM DESCRIPTION: CTAbdomen Pelvis W Contrast - 04/26/2022 2:07 pm CLINICAL HISTORY: Abdominal pain. lower abdominal pain, diarrhea COMPARISON: Abdomen Pelvis W Contrast dated 01/14/2022; Abdomen Pelvis W Contrast dated 1; Abdomen Pelvis W Contrast dated 03/04/2018; Abdomen Pelvis W Contrast dated 02/16/2018 TECHNIQUE: Biphasic CT imaging of the abdomen and pelvis was performed with 100 ml non-ionic IV cont rast. All CT scans are performed using dose optimization technique as appropriate and may include automated exposure control or mA/KV adjustment according to patient size. FINDINGS: The lung bases are clear. The liver contains several benign cysts. Spleen, pancreas, adrenal glands and kidneys are within norm al limits. Small benign left renal cyst. No bowel obstruction, free air, free fluid or abscess. Moderate stool is present throughout the colon . The appendix is normal. No evidence of significant lymphadenopathy. No suspicious bony findings. IMPRESSION: No acute intra-abdominal or pelvic finding.
--- NOTE | 2022-04-26 14:37 | ER ---
Nurse's Notes [facility] Name: Juan Campos Age: 46 yrs Sex: Male : 1975 Arrival Date: 04/26/2022 Time: 10:50 Bed 20 Private MD: Diagnosis: Abdominal pain, unspecified;Dysuria Presentation: 04/26 11:34 Chief complaint: Patient states: since yesterday I have dark tarry stool that's jh5 diarrhea on and off, no bright blood and real bad lower belly pains that feels like burning. and I have this bad nausea where i want to throw up but I haven't. No appetite. This happens after I have anal sex, I am bi and my doesn't know. Coronavirus screen: Vaccine status: Patient reports receiving the 2nd dose of the covid vaccine. Client denies travel out of the [place] in the last 14 days. Ebola Screen: Patient negative for fever greater than or equal to 101.5 degrees Fahrenheit, and additional compatible Ebola Virus Disease symptoms Patient denies exposure to infectious person. Patient denies travel to an Ebola-affected area in the 21 days before illness onset. Initial Sepsis Screen: Does the patient meet any 2 criteria? No. Patient's initial sepsis screen is negative. Does the patient have a suspected source of infection? No. Patient's initial sepsis screen is negative. Risk Assessment: Do you want to hurt yourself or someone else? Patient reports no desire to harm self or others. 11:34 Method Of Arrival: Ambulatory [facility] 11:34 Acuity: [place] 3 jh5 Triage Assessment: 11:38 General: Appears in no apparent distress. uncomfortable, well groomed, well developed, jh5 well nourished, Behavior is calm, cooperative, appropriate for age, anxious. Pain: Complains of pain in abdomen. GI: Reports lower abdominal pain, cramping, diarrhea. Historical: - PMHx: 11:38 Sexually transmitted infectious disease; jh5 - PSHx: 11:38 Vasectomy; 5 - Immunization history:: Adult Immunizations up to date. - Social history:: Smoking status: Patient denies any tobacco usage or history of. Screenin:55 Abuse screen: Denies threats or abuse. Nutritional screening: No deficits noted. vg1 Tuberculosis screening: No symptoms or risk factors identified. Fall Risk No fall in past 12 months (0 pts). No secondary diagnosis (0 pts). IV access (20 points). Ambulatory Aid- None/Bed Rest/Nurse Assist (0 pts). Gait- Normal/Bed Rest/Wheelchair (0 pts) Mental Status- Oriented to own ability (0 pts). Total Matson Fall Scale indicates No Risk (0-24 pts). Assessment: 12:55 General: Appears in no apparent distress. comfortable, Behavior is calm, cooperative. vg1 Pain: Complains of pain in right lower quadrant and left lower quadrant Pain currently is 8 out of 10 on a pain scale. Pain began 2-3 days ago. Neuro: Level of Consciousness is awake, alert, obeys commands, Oriented to person, place, time, situation. Cardiovascular: Patient's skin is warm and dry. Respiratory: Airway is patent Respiratory effort is even, unlabored. GI: Abdomen is flat, non-distended, Abdomen is tender to palpation in umbilical area, right lower quadrant and left lower quadrant Reports bloody stool, nausea. : No signs and/or symptoms were reported regarding the genitourinary system. EENT: No signs and/or symptoms were reported regarding the EENT system. Derm: Skin is pink, warm \T\ dry. Musculoskeletal: Circulation, motion, and sensation intact. 14:30 Reassessment: Patient appears in no apparent distress at this time. No changes from vg1 previously documented assessment. Patient and/or family updated on plan of care and expected duration. Pain level reassessed. Patient is alert, oriented x 3, equal unlabored respirations, skin warm/dry/pink. Vital Signs: 11:34 BP 139 / 98; Pulse 71; Resp 18; Temp 98.6; Pulse Ox 100% ; Weight 81.65 kg; Height 5 [facility] ft. 9 in. (175.26 cm); Pain 8/10; 13:00 BP 135 / 94; Pulse 90; Resp 17; Pulse Ox 100% on R/A; vg1 14:45 BP 125 / 90; Pulse 65; Resp 15; Pulse Ox 100% on R/A; vg1 11:34 Body Mass Index 26.58 (81.65 kg, 175.26 cm) [facility] ED Course: 10:50 Patient arrived in ED. rg4 11:38 Triage completed. 5 11:38 Arm band placed on right wrist. jh5 11:45 Jamaal Lawson PA is PHCP. tyesha 11:45 Caleb Shay MD is Attending Physician. [facility] 12:53 Augusta De La Cruz, RN is Primary Nurse. vg1 12:55 Patient has correct armband on for positive identification. Bed in low position. Call vg1 light in reach. Side rails up X 1. 13:05 Inserted saline lock: 20 gauge in left antecubital area, using aseptic technique. Blood vg1 collected. 14:09 CT Abd/Pelvis - IV Contrast Only In Process Unspecified. EDMS 15:04 No provider procedures requiring assistance completed. IV discontinued, intact, vg1 bleeding controlled, No redness/swelling at site. Pressure dressing applied. Administered Medications: 13:08 Drug: NS 0.9% 1000 ml Route: IV; Rate: 1 bolus; Site: left antecubital; vg1 14:36 Follow up: IV Status: Completed infusion; IV Intake: 1000ml vg1 13:09 Drug: Zofran (Ondansetron) 4 mg Route: IVP; Site: left antecubital; vg1 14:36 Follow up: Response: No adverse reaction; Marked relief of symptoms vg1 14:50 Drug: AZITHromycin 1 grams Route: PO; vg1 15:07 Follow up: Response: No adverse reaction vg1 14:53 Drug: Rocephin (cefTRIAXone) 1 grams Route: IV; Rate: calculated rate; Site: left vg1 antecubital; 15:07 Follow up: IV Status: Completed infusion; IV Intake: 50ml vg1 Medication: 13:00 VIS not applicable for this client. vg1 Intake: 14:36 IV: 1000ml; Total: 1000ml. vg1 15:07 IV: 50ml; Total: 1050ml. vg1 Outcome: 14:37 Discharge ordered by . [facility] 15:03 Discharged to home ambulatory. vg1 15:03 Condition: good 15:03 Discharge instructions given to patient, Instructed on discharge instructions, follow up and referral plans. Demonstrated understanding of instructions, follow-up care. 15:06 Patient left the ED. vg1 Signatures: Dispatcher [employer] EDIL Jamaal Lawson PA PA jmm Garcia, Rubi rg4 Augusta De La Cruz, RN RN vg1 Elena Oconnor RN RN jh5 Corrections: (The following items were deleted from the chart) 11:54 11:34 Chief complaint: Patient states: since yesterday I have dark tarry stool that's jh5 diarrhea on and off, no bright blood and real bad lower belly pains that feels like burning. and I have this bad nausea where i want to throw up but I haven't. No appetite jh5
--- NOTE | 2022-04-26 14:38 | EDPHYS ---
Physician Documentation [facility] Name: Juan Campos Age: 46 yrs Sex: Male : 1975 Arrival Date: 04/26/2022 Time: 10:50 Bed 20 Private MD: ED Physician Caleb Shay HPI: 04/26 12:19 This 46 yrs old Male presents to ER via Ambulatory with complaints of Black/Tarry jmm Stools, Nausea. 12:19 The patient presents with abdominal pain. Onset: The symptoms/episode began/occurred jmm gradually, 2 day(s) ago. The symptoms do not radiate. Associated signs and symptoms: Pertinent positives: diarrhea, dysuria. The symptoms are described as achy. This is a 46 year old male that presents to the ED with complaints of lower abdominal pain, nausea. Denies vomiting. Patient does have concerns he may have an STI with complaints of dysuria and recent unprotected intercourse. . Historical: - PMHx: 11:38 Sexually transmitted infectious disease; jh5 - PSHx: 11:38 Vasectomy; [facility] - Immunization history:: Adult Immunizations up to date. - Social history:: Smoking status: Patient denies any tobacco usage or history of. ROS: 12:19 Constitutional: Negative for fever, chills, and weight loss, Cardiovascular: Negative jmm for chest pain, palpitations, and edema, Respiratory: Negative for shortness of breath, cough, wheezing, and pleuritic chest pain. 12:19 Abdomen/GI: Positive for abdominal pain. 12:19 : Positive for urinary symptoms. 12:19 All other systems are negative. Exam: 12:19 Constitutional: This is a well developed, well nourished patient who is awake, alert, jmm and in no acute distress. Head/Face: atraumatic. Eyes: EOMI, no conjunctival erythema appreciated ENT: Moist Mucus Membranes Neck: Trachea midline, Supple Chest/axilla: Normal chest wall appearance and motion. Cardiovascular: Regular rate and rhythm. No edema appreciated Respiratory: Normal respirations, no respiratory distress appreciated 12:19 Skin: General appearance color normal MS/ Extremity: Moves all extremities, no obvious deformities appreciated, no edema noted to the lower extremities Neuro: Awake and alert Psych: Behavior is normal, Mood is normal, Patient is cooperative and pleasant 12:19 Abdomen/GI: Inspection: abdomen appears normal, Bowel sounds: normal, Palpation: soft, mild abdominal tenderness, in the right lower quadrant and left lower quadrant. Vital Signs: 11:34 BP 139 / 98; Pulse 71; Resp 18; Temp 98.6; Pulse Ox 100% ; Weight 81.65 kg; Height 5 [facility] ft. 9 in. (175.26 cm); Pain 8/10; 13:00 BP 135 / 94; Pulse 90; Resp 17; Pulse Ox 100% on R/A; vg1 14:45 BP 125 / 90; Pulse 65; Resp 15; Pulse Ox 100% on R/A; vg1 11:34 Body Mass Index 26.58 (81.65 kg, 175.26 cm) [facility] MDM: 12:19 Patient medically screened. [facility] 14:35 Data reviewed: vital signs, nurses notes. Counseling: I had a detailed discussion with francisco the patient and/or guardian regarding: the historical points, exam findings, and any diagnostic results supporting the discharge/admit diagnosis, lab results, radiology results, the need for outpatient follow up, to return to the emergency department if symptoms worsen or persist or if there are any questions or concerns that arise at home. ED course: Ct negative Patient given abx due to concerns for sti. Advised to follow up with pcp and otherwise given strict return precautions. patient understood and agrees with the plan of care. . 04/26 12:20 Order name: CBC with Diff; Complete Time: 13:32 [facility] 04/26 12:20 Order name: CMP; Complete Time: 13:47 [facility] 04/26 12:20 Order name: Lipase; Complete Time: 13:47 [facility] 04/26 12:20 Order name: CT Abd/Pelvis - IV Contrast Only; Complete Time: 14:22 [facility] 04/26 13:22 Order name: Urine Dipstick-Ancillary; Complete Time: 13:25 [facility] 04/26 12:20 Order name: IV Saline Lock; Complete Time: 13:13 [facility] 04/26 12:20 Order name: Labs collected and sent; Complete Time: 13:13 [facility] 04/26 12:20 Order name: Urine Dipstick-Ancillary (obtain specimen); Complete Time: 13:22 [facility] Administered Medications: 13:08 Drug: NS 0.9% 1000 ml Route: IV; Rate: 1 bolus; Site: left antecubital; vg1 14:36 Follow up: IV Status: Completed infusion; IV Intake: 1000ml vg1 13:09 Drug: Zofran (Ondansetron) 4 mg Route: IVP; Site: left antecubital; vg1 14:36 Follow up: Response: No adverse reaction; Marked relief of symptoms vg1 14:50 Drug: AZITHromycin 1 grams Route: PO; vg1 15:07 Follow up: Response: No adverse reaction vg1 14:53 Drug: Rocephin (cefTRIAXone) 1 grams Route: IV; Rate: calculated rate; Site: left vg1 antecubital; 15:07 Follow up: IV Status: Completed infusion; IV Intake: 50ml vg1 Disposition: 04/27 07:28 Co-signature as Attending Physician, Caleb Shay MD I agree with the assessment and rt plan of care. Disposition Summary: 04/26/22 14:37 Discharge Ordered Location: Home jmm Condition: Stable jmm Diagnosis - Abdominal pain, unspecified jmm - Dysuria jmm Followup: jmm - With: Private Physician - When: 2 - 3 days - Reason: Recheck today's complaints, Continuance of care, Re-evaluation by your physician Discharge Instructions: - Discharge Summary Sheet jmm - Abdominal Pain, Adult jmm - Dysuria jmm Forms: - Medication Reconciliation Form jmm - Thank You Letter jmm - Antibiotic Education jmm - Prescription Opioid Use jmm Signatures: Dispatcher [employer] EDJamaal Washington PA PA jmm Garcia, Victoria RN RN vg1 Elena Oconnor, RN RN jh5 Caleb Shay MD MD rt
[2022-04-26] MEDS ORDERED: CEFTRIAXONE 1000 MG/VIAL ONE (14:45)
[2022-04-26] MEDS ORDERED: AZITHROMYCIN 250 MG TAB ONE (14:46)
[2022-04-26] MEDS ORDERED: NA CHLORIDE 0.9% 50 ML IV ONE (14:46)
[2022-04-26 15:30] VITALS: TEMP 98.6; O2SAT 100
[2022-04-26 15:32] VITALS: BP 125/90
== END 2022-04-26 15:06 | disposition home or self-care (01) ==
LOC: ER 10:47
DX: R10.30 Lower abdominal pain, unspecified (principal); R30.0 Dysuria
CPT/HCPCS: 85025; 36415; 81003; 83690; 80053; 74177; Q9967; J7030; J2405; 96361; 96374; 96375; 99284; Q0144

== ENCOUNTER 2022-04-28 02:57 | Emergency (ER) | payer OTHER ==
--- OUTSIDE RECORDS SUMMARY | 2022-04-28 03:00 | XMS REPORT | Continuity of Care Document ---
:1975 Author Organization [facility] t Address [address] [place] [address] Care Team Providers Name Role Phone PCP, PATIENT DOES NOT HAVE A Primary Care Physician Unavaila BRAN Cartagena Attending Clinician Unavailable Bran Red DO Attending Clinician Bebeto Woody Attending Clinician BRAN RED Admitting Clinician Unavailable Payers Payer Name Policy Type Policy Number Effective Date Expiration Date [facility] [id number] 2014 MEDICAID 00:00:00 Problems Condition Condition Condition [...] different from the original. 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 Allergies, Adverse Reactions, Alerts Allergy Allergy Status Severity Reaction(s) Onset Inactive Treating Comm ents Source Name Type Date Date Clinician Cat Hair Propensi Active Itching Unive rs Std ty to 6-16 ity of Allergen adverse 00:00: [place] ic Ext reaction 00 Medical s Branch CAT HAIR DRUG Active ITCHING 2010-0 Univers STD 6-16 ity of ALLERGEN 00:00: [place] IC EXT 00 Medical Branch Social History Social Habit Start Date Stop Date Quantity Comments Source Exposure to Not sure [facility]-CoV-2 [facility] (event) Branch Alcohol intake 2018-05-26 2018-05-26 Current University 00:00:00 00:00:00 non-drinker of [facility] alcohol [place] (finding) Sex Assigned At [birth year] Universit y of 00:00:00 00:00:00 [facility] Smoking Status Start Date Stop Date Source Never smoker [facility] Social History [facility] Medications Ordered Filled Start Stop Current Ordering Indication Dosage Frequency Signature Comments Components Source Medication Medication Date Date Medication? Clinician (SIG) Name Name iopamidol 2020-06- No [id number] 120mL 120 mL, Univers (ISOVUE 06-27 Intravenou ity o f 370-500 mL) 17:15: 16:04 s, ONCE, 1 [place] injection 00 :00 dose, On Medica l 120 mL [facility] 04/27/21 at 1115, Routine ondansetron 2020-06- No 4mg 4 mg, Slow Univers (ZOFRAN 06-27 IV Push, ity of (PF)) 16:45: 15:45 ONCE, 1 [place] injection 4 00 :00 dose, On Medi faina mg [facility] 04/27/21 at 1045, Routine sucralfate 2020-06 Yes [id number] 1g Take 1 U nivers 1 gram -22 tablet by ity of tablet 00:00: mouth [place] 00 before Medical meals and Branch at bedtime. dicyclomine 2020-06 Yes [id number] 10mg Take 1 Univers (BENTYL) 10 -22 capsule by it y of mg capsule 00:00: mouth [place] 00 every 8 Medical (eight) Branch hours as needed for Abdominal pain. ondansetron 2020-06 Yes [id number] 4mg Take 1 Univers 4 mg -22 tablet by ity of disintegrat 00:00: mouth [place] ing tablet 00 every 8 Medica l (eight) Branch hours as needed for Nausea and Vomiting (N/V). omeprazole 2020-06- No [id number] 20mg Take 1 Univers 20 mg 1-22 12-23 capsule by ity of capsule 00:00: 05:59 mouth [place] 00 :00 daily for Medical 30 days. Branch nystatin Yes [id number] Take 5 mL Univers 100,000 1-25 by mouth 4 ity of unit/mL 00:00: (four) [place] suspension 00 times Medical daily. Branch ondansetron Yes [id number] 4mg Take 1 Univers 4 mg tablet [...] Q12H, l 15:33: 0 [place] 00 Refill(s) Metronidazo 2017-06 No 500 mg = 1 Memoria le 0-11 tab, PO, l 15:33: Q6H, 0 [place] 00 Refill(s) Omeprazole 2017-06 No 40 mg, [...] 0-11 Q6H, 0 l de 15:33: Refill(s) Cal hydrOXYzine 2017-06 No 25 mg, PO, Memoria hydrochlori 0-11 Q6H, 0 l de 15:33: Refill(s) Metronidazo 2017-06 No 500 mg = 1 Memoria le 0-11 tab, PO, l 15:33: Q6H, 0 Refill(s) Omeprazole 2017-06 No 40 mg, PO, M emoria 0-11 Daily, 0 l 15:33: Refill(s) Dicyclomine 2017-06 No 20 mg, PO, Memoria 0-11 Q6H, 0 l 15:33: Refill(s) ondansetron 2017-06 No 4 mg = 1 Me moria 4 mg oral 0-11 tab, PO, l tablet 15:33: Q12H, 0 Refill(s) Famotidine 2017-06 No 20 mg = 1 Me moria 0-11 tab, PO, l 15:33: Q12H, 0 Refill(s) Ciprofloxac 2017-06 No 500 mg, Mem oria in 0-11 PO, Q12H, l 15:33: 0 Refill(s) hydrOXYzine 2017-06 No 25 mg, PO, Memoria hydrochlori 0-11 Q6H, 0 l de 15:33: Refill(s) Metronidazo 2017-06 No 500 mg = 1 Memoria le 0-11 tab, PO, l 15:33: Q6H, 0 Refill(s) Omeprazole 2017-06 No 40 mg, PO, M emoria 0-11 Daily, 0 l 15:33: Refill(s) Dicyclomine 2017-06 No 20 mg, PO, Memoria 0-11 Q6H, 0 l 15:33: Refill(s) ondansetron 2017-06 No 4 mg = 1 Me moria 4 mg oral 0-11 tab, PO, l tablet 15:33: Q12H, 0 Refill(s) omeprazole 2017-06 No Univer s 40 mg 0-05 -22 ity of capsule 00:00: 00:00 [place] 00 :00 Medical Branch hydrocortis Yes 25mg Insert 1 Un nelida one 8-24 Suppositor ity of (ANUSOL-HC) 00:00: y into [place] 25 mg 00 rectum 2 Medical suppository (two) Branch times daily. CALCIUM 2015-0 Yes Take by [facility] CARBONATE 08-05 mouth. ity of (CALCIUM 14:20: [place] 500 ORAL) 36 Medical [place] Vital Signs Vital Name Observation Time Observation Value Comments Source Systolic blood 2021-04-27 17:30:43 120 [facility]Hg[facility] Diastolic blood 2021-04-27 17:30:43 75 mm[Hg] [facility] Heart rate 2021-04-27 17:30:43 70 /min [facility] Body temperature 2021-04-27 17:30:43 36.78 [facility] Respiratory rate 2021-04-27 17:30:43 18 /min [facility] Oxygen saturation in 2021-04-27 17:30:43 100 /min [facility] Arterial blood by [facility] Pulse oximetry Branch Heart Rate 2018-03-16 15:31:00 [facility] Weight 2018-03-16 15:31:00 [facility] Height 2018-03-16 15:31:00 180.34 cm [facility] BMI Calculated 2018-03-16 15:31:00 Quang Irelandann Systolic (mm Hg) 2018-03-16 15:31:00 Ming mancia Cal Diastolic (mm Hg) 2018-03-16 15:31:00 Zeeshan Mccall Procedures Procedure Date / Time Performed Performing Clinician [facility] e CT ABDOMEN PELVIS W 2021-04-27 16:08:21 Bran Red [facility] CONTRAST [facility] Branch LIPASE 2021-04-27 15:45:00 Singer [facility] COMP. METABOLIC PANEL 2021-04-27 15:45:00 [facility] ([id number]) [facility] CBC WITH DIFF 2021-04-27 15:45:00 Red, [facility] URINALYSIS 2021-04-27 15:45:00 Red [facility] NOTICE OF PRIVACY 2021-04-27 14:21:16 Doctor Unassigned, No [facility] PRACTICES Name Medical Branch CONSENT/REFUSAL FOR 2021-04-27 14:20:59 Doctor Unassigned, No [facility] AND Name Medical Branch TREATMENT Encounters Start End Encounter Admission Attending Care Care Encounter Source Date/Time Date/Time Type Type Clinicians Facility Department ID 2021-04-27 2021-04-27 Emergency X SINGER [facility] ERT [id number] Univers 08:27:00 11:54:00 BRAN ayala [facility] 2021-04-27 2021-04-27 Emergency [facility] [id number] Univers 08:27:00 11:54:00 Bran CARMONA [id number] i [facility] [id number] [facility] [id number] [place] [id number] Branch 2018-05-26 2018-05-28 Outside nullFlavo MNA [id number] Memoria 16:20:00 05:59:59 Medical r Neurology 02 l Records [place] 2018-05-26 2018-05-28 Outside nullFlavo MNA [id number] Memoria 16:20:00 05:59:59 Medical r Neurology 02 l Records [place] 2018-05-26 2018-05-27 Outpatient MHMISCHER MHMISCHER [id number] 10:20:00 23:59:59 02 2018-04-21 2018-04-21 Ambulatory nullFlavo MNA [id number] Memoria 17:15:00 17:15:00 Pre-Reg r Neurology 01 l [place] 2018-04-21 2018-04-21 Ambulatory nullFlavo MNA [id number] Memoria 17:15:00 17:15:00 Pre-Reg r Neurology 01 l Payal Mccall 2018-04-21 2018-04-21 Outpatient MHIE MHIE [id number] Memoria 11:15:00 11:15:00 01 miguel angel Mccall 2018-04-21 2018-04-21 Outpatient MAGDALENA WoodySCHSHANICE MHMISCHER [id number] 11:15:00 11:15:00 Bebeto Marquis 2018-03-22 2018-03-24 Outside nullFlavo MNA [id number] Memoria 22:51:00 04:59:59 Medical r Neurology 01 l Records Payal Mccall 2018-03-22 2018-03-24 Outside nullFlavo MNA [id number] Memoria 22:51:00 04:59:59 Medical r Neurology 01 l Records Payal Mccall 2018-03-22 2018-03-24 Phone nullFlavo MNA [id number] Memoria 21:22:00 04:59:59 Message r Neurology 00 l Payal Mccall 2018-03-22 2018-03-24 Phone nullFlavo MNA [id number] Memoria 21:22:00 04:59:59 Message r Neurology 00 l Payal Mccall 2018-03-22 2018-03-23 Outpatient MHMISCHER MHMISCHER [id number] 17:51:00 23:59:59 01 2018-03-22 2018-03-23 Outpatient MHMISCHER MHMISCHER [id number] 16:22:00 23:59:59 00 2018-03-16 2018-03-17 Outpatient nullFlavo MNA [id number] Memoria 16:00:00 04:59:59 r Neurology 00 l Payal Mccall 2018-03-16 2018-03-17 Outpatient nullFlavo MNA [id number] Memoria 16:00:00 04:59:59 r Neurology 00 l Payal Mccall 2018-03-16 2018-03-16 Outpatient Bong MHMISCHER MHMISCHER [id number] 11:00:00 23:59:59 Bebeto 00 Benitez 2018-03-16 2018-03-16 Outpatient MHIE MHIE [id number] Memoria 11:00:00 11:00:00 00 miguel angel Mccall Results Test Description Test Time Test [...] 34.5 g/dL 31.2-35.0 RDW-SD (test code = 33042-7) 39.9 fL 38.5-51.6 RDW-CV (test code = 788-0) 12.4 % 12.1-15.4 PLT (test code = 777-3) See_Comment L [Au tomated message] The system which Adility nerated this result transmit malorie reference range: 150 - 32 8 10*3/?L. The reference range was not used to interpret th is result as normal/abnormal . MPV (test code = 68493-0) 10.6 fL 9.8-13.0 IPF % (test code = 3.9 % 1.2-10.7 Platelet count measured by [id number]) fluorescence me thod. NRBC/100 WBC (test code = See_Comment [ Automated message] The [id number]) system which Adility nerated this result transmit malorie reference range: 0.0 - 10 .0 /100 WBCs. The reference r elizabeth was not used to interpr et this result as normal/abnor mal. NRBC x10^3 (test code = <0.01 See_Comment [Au tomated message] The 8378174622) system which Adility nerated this result transmit malorie reference range: 10*3/?L. The reference range was not u sed to interpret this result as normal/abnormal . GRAN MAT (NEUT) % (test code 45.9 % = 770-8) IMM GRAN % (test code = 0.20 % [id number]) LYMPH % (test code = 736-9) 41.6 % MONO % (test code = 5905-5) 5.3 % EOS % (test code = 713-8) 6.5 % BASO % (test code = 706-2) 0.5 % GRAN MAT x10^3(ANC) (test 2.59 10*3/uL 1.99-6.95 code = 0606668074) IMM GRAN x10^3 (test code = <0.03 0.00-0.06 3160987936) LYMPH x10^3 (test code = 2.35 10*3/uL 1.09-3.23 731-0) MONO x10^3 (test code = 0.30 10*3/uL 0.36-1.02 L 742-7) EOS x10^3 (test code = 0.37 10*3/uL 0.06-0.53 711-2) BASO x10^3 (test code = 0.03 10*3/uL 0.01-0.09 704-7) Lab Interpretation (test Abnormal code = 76466-9) [facility]. METABOLIC PANEL ([id number])2021-04-27 16:20:53 Test Item Value Reference Range Interpretation Comments NA (test code = 138 mmol/L 135-145 2399262646) K (test code = 4.3 mmol/L 3.5-5.0 4899469431) CL (test code = 104 mmol/L 98-108 6021164492) CO2 TOTAL (test code 28 mmol/L 23-31 = 4108688163) AGAP (test code = 2-16 7276102246) BUN (test code = 10 mg/dL 7-23 4648938036) GLUCOSE (test code = 95 mg/dL 70-110 6399013722) CREATININE (test code 0.93 mg/dL 0.60-1.25 = 3187498452) TOTAL BILI (test code 1.1 mg/dL 0.1-1.1 = 3655604503) CALCIUM (test code = 9.2 mg/dL 8.6-10.6 8114053520) T PROTEIN (test code 7.3 g/dL 6.3-8.2 = 2818635479) ALBUMIN (test code = 4.2 g/dL 3.5-5.0 7122786411) ALK PHOS (test code = 55 U/L 34-122 2697997496) ALTv (test code = 21 U/L 50 1742-6) AST(SGOT) (test code 28 U/L 13-40 = 4704667595) eGFR (test code = mL/min/1.73m2 6317083053) ABA (test code = ABA) Association of [...] or urine or abnormalities in imaging tests). [facility] Test Item Value Reference Range Interpretation Comments LIPASE (test code = 4423865270) 58 U/L 0-220 Lab Interpretation (test code = Normal 24166-0) [facility]"
[2022-04-28] MEDS ORDERED: IBUPROFEN 400 MG TAB ONE (03:58)
[2022-04-28] MEDS ORDERED: LIDOCAINE VISCOUS 2% SOLN 15 ML UDC ONE (04:12)
[2022-04-28] MEDS ORDERED: MAGNES/ALUMIN/SIMET 30ML UCUP ONE (04:12)
[2022-04-28] MEDS ORDERED: NA CHLORIDE 0.9% 1,000 ML ONE (04:12)
[2022-04-28] MEDS ORDERED: FAMOTIDINE 20 MG/2 ML VIAL IV ONE (04:12)
[2022-04-28 04:50] LABS: Absolute Lymphocytes (CBC) 2.4 K/uL (0.7-4.9); Hematocrit 39.3 % (39.6-49.0); Lymphocytes % 40.4 % (15.3-44.8); MCV 86.6 fL (80-100); MPV 8.6 fL (7.6-11.3); RBC Red Blood Cell Count 4.54 M/uL (4.33-5.43)
[2022-04-28 04:55] LABS: SARS-COV-2 RT PCR NEGATIVE (NEGATIVE)
[2022-04-28 05:43] LABS: Albumin 3.6 g/dL (3.4-5.0); Bilirubin Total 0.6 mg/dL (0.2-1.0); Potassium 3.8 mmol/L (3.5-5.1); Protein, Total 6.9 g/dL (6.4-8.2); Troponin High Sensitivity 10.8 pg/mL (<58.9)
--- NOTE | 2022-04-28 06:01 | ER ---
Nurse's Notes [facility] Name: Juan Campos Age: 46 yrs Sex: Male : 1975 Arrival Date: 04/28/2022 Time: 02:58 Bed 15 Private MD: Diagnosis: Acute upper respiratory infection, unspecified;Functional dyspepsia Presentation: 04/28 04:30 Chief complaint: Patient states: My upper ABD feels like its burning, I have a sore aa9 throat and it hurts to pee, I have to pee very frequently. Ebola Screen: No symptoms or risks identified at this time. Initial Sepsis Screen: Does the patient meet any 2 criteria? No. Patient's initial sepsis screen is negative. Does the patient have a suspected source of infection? No. Patient's initial sepsis screen is negative. Risk Assessment: Do you want to hurt yourself or someone else? Patient reports no desire to harm self or others. Onset of symptoms was April 28, 2022. 04:30 Method Of Arrival: Ambulatory aa9 04:30 Acuity: [place] 3 aa9 04:49 Coronavirus screen: Vaccine status: Patient reports receiving the 2nd dose of the covid aa9 vaccine. moderna. Historical: - Allergies: 04:48 No Known Allergies; aa9 - Home Meds: 04:48 None [Active]; aa9 - PMHx: 04:48 Sexually transmitted infectious disease; aa9 - PSHx: 04:48 Vasectomy; hernia; aa9 - Immunization history:: Client reports receiving the 2nd dose of the Covid vaccine, moderna. - Social history:: Smoking status: Patient denies any tobacco usage or history of. Screenin:32 Abuse screen: Denies threats or abuse. Denies injuries from another. Nutritional aa9 screening: No deficits noted. Tuberculosis screening: No symptoms or risk factors identified. Fall Risk None identified. Assessment: 04:32 General: Appears uncomfortable, Behavior is calm, cooperative, appropriate for age. aa9 Pain: Complains of pain in right upper quadrant and left upper quadrant Quality of pain is described as burning, Also complains of. Neuro: Level of Consciousness is awake, alert, obeys commands, Oriented to person, place, time, situation. Cardiovascular: Patient's skin is warm and dry. Respiratory: Airway is patent Respiratory effort is even, unlabored, Respiratory pattern is regular, GI: Reports lower abdominal pain. : Reports burning with urination, urinary frequency. EENT: Throat is reddened. Derm: Skin is intact, is healthy with good turgor. Musculoskeletal: No signs and/or symptoms reported regarding the musculoskeletal system. 05:12 Reassessment: Patient appears in no apparent distress at this time. Patient is alert, aa9 oriented x 3, equal unlabored respirations, skin warm/dry/pink. 06:17 Reassessment: Patient appears in no apparent distress at this time. Patient is alert, aa9 oriented x 3, equal unlabored respirations, skin warm/dry/pink. pt understands discharge instructions. Vital Signs: 04:30 BP 130 / 98; Pulse 57; Resp 20 S; Temp 97.9(O); Pulse Ox 99% on R/A; Weight 81.65 kg aa9 (R); Height 5 ft. 6 in. (167.64 cm) (R); 04:49 BP 126 / 84; Pulse 60; Resp 20 S; Pulse Ox 100% on R/A; aa9 05:11 BP 111 / 74; Pulse 59; Resp 19 S; Pulse Ox 99% on R/A; aa9 05:58 BP 112 / 74; Pulse 58; Resp 19 S; Pulse Ox 97% on R/A; aa9 06:17 BP 107 / 76; Pulse 62; Resp 17 S; Pulse Ox 99% on R/A; aa9 04:30 Body Mass Index 29.05 (81.65 kg, 167.64 cm) aa9 ED Course: 02:58 Patient arrived in ED. ja2 03:04 Bhavesh Brown MD is Attending Physician. diane 03:50 Chest Pa And Lat (2 Views) XRAY In Process Unspecified. EDMS 03:52 Sarah Juarez, DRAKE is Primary Nurse. aa9 04:10 Strep Sent. aa9 04:10 COVID-19/FLU A+B Sent. aa9 04:26 Inserted saline lock: 20 gauge in left antecubital area, using aseptic technique. Blood aa9 collected. 04:28 Lipase Sent. aa9 04:28 CBC with Diff Sent. aa9 04:28 Comprehensive Metabolic Panel Sent. aa9 04:28 Troponin High Sensitivity Sent. aa9 04:28 Strep Sent. aa9 04:29 COVID-19/FLU A+B Sent. aa9 04:32 Triage completed. aa9 04:33 Patient has correct armband on for positive identification. Bed in low position. Call aa9 light in reach. Door closed. Lights dimmed. Warm blanket given. 04:49 No provider procedures requiring assistance completed. aa9 04:49 Arm band placed on. aa9 06:17 IV discontinued, intact, bleeding controlled, No redness/swelling at site. Pressure aa9 dressing applied. Administered Medications: 04:10 Drug: Motrin (ibuprofen) 800 mg Route: PO; aa9 04:47 Follow up: Response: No adverse reaction aa9 04:28 Drug: GI Cocktail without - (Maalox Suspension 30 ml, Lidocaine Liquid 2 % 15 aa9 ml) Route: PO; 04:47 Follow up: Response: No adverse reaction aa9 04:28 Drug: NS 0.9% 1000 ml Route: IV; Rate: 1 bolus; Site: left antecubital; aa9 04:28 Drug: Pepcid (famotidine) 20 mg Route: IVP; Site: left antecubital; aa9 04:48 Follow up: Response: No adverse reaction aa9 Medication: 04:33 VIS not applicable for this client. aa9 Outcome: 06:01 Discharge ordered by . diane 06:16 Discharged to home ambulatory. aa9 06:16 Condition: stable 06:16 Discharge instructions given to patient, Instructed on discharge instructions, follow up and referral plans. medication usage, Demonstrated understanding of instructions, follow-up care, medications, Prescriptions given X 2. 06:17 Patient left the ED. aa9 Signatures: Dispatcher [employer] EDBhavesh Miramontes MD MD cha Alexander, Jessica ja2 Avalos, Aylin, RN RN aa9
--- NOTE | 2022-04-28 06:02 | EDPHYS ---
Physician Documentation [facility] Name: Juan Campos Age: 46 yrs Sex: Male : 1975 Arrival Date: 04/28/2022 Time: 02:58 Bed 15 Private MD: ED Physician Bhavesh Brown HPI: 04/28 05:17 This 46 yrs old Male presents to ER via Ambulatory with complaints of Fever, diane Sore Throat, Breathing Difficulty. 05:17 The patient reports fever, that was measured at 99 degrees Fahrenheit. Onset: The diane symptoms/episode began/occurred 2 day(s) ago. Modifying factors: there are no obvious modifying factors. 05:18 The patient presents with sore throat. The patient describes throat pain as burning. diane Severity of symptoms: At their worst the symptoms were mild, in the emergency department the symptoms are unchanged. The patient or guardian reports cough, that is intermittent. Modifying factors: The symptoms are alleviated by nothing, the symptoms are aggravated by nothing. Associated signs and symptoms: Pertinent positives: cough, nausea. Historical: - Allergies: 04:48 No Known Allergies; aa9 - Home Meds: 04:48 None [Active]; aa9 - PMHx: 04:48 Sexually transmitted infectious disease; aa9 - PSHx: 04:48 Vasectomy; hernia; aa9 - Immunization history:: Client reports receiving the 2nd dose of the Covid vaccine, moderna. - Social history:: Smoking status: Patient denies any tobacco usage or history of. ROS: 05:19 Constitutional: Negative for fever, chills, and weight loss, Eyes: Negative for injury, diane pain, redness, and discharge, Neck: Negative for injury, pain, and swelling, Cardiovascular: Negative for chest pain, palpitations, and edema, Abdomen/GI: Negative for abdominal pain, nausea, vomiting, diarrhea, and constipation, Back: Negative for injury and pain, : Negative for injury, bleeding, discharge, and swelling, MS/Extremity: Negative for injury and deformity, Skin: Negative for injury, rash, and discoloration, Neuro: Negative for headache, weakness, numbness, tingling, and seizure, Psych: Negative for depression, anxiety, suicide ideation, homicidal ideation, and hallucinations, Allergy/Immunology: Negative for hives, rash, and allergies, Endocrine: Negative for neck swelling, polydipsia, polyuria, polyphagia, and marked weight changes, Hematologic/Lymphatic: Negative for swollen nodes, abnormal bleeding, and unusual bruising. 05:19 ENT: Positive for rhinorrhea, sore throat. Exam: 05:19 Constitutional: This is a well developed, well nourished patient who is awake, alert, diane and in no acute distress. Head/Face: Normocephalic, atraumatic. Eyes: Pupils equal round and reactive to light, extra-ocular motions intact. Lids and lashes normal. Conjunctiva and sclera are non-icteric and not injected. Cornea within normal limits. Periorbital areas with no swelling, redness, or edema. Neck: Trachea midline, no thyromegaly or masses palpated, and no cervical lymphadenopathy. Supple, full range of motion without nuchal rigidity, or vertebral point tenderness. No Meningismus. Chest/axilla: Normal chest wall appearance and motion. Nontender with no deformity. No lesions are appreciated. Cardiovascular: Regular rate and rhythm with a normal S1 and S2. No gallops, murmurs, or rubs. Normal PMI, no JVD. No pulse deficits. Abdomen/GI: Soft, non-tender, with normal bowel sounds. No distension or tympany. No guarding or rebound. No evidence of tenderness throughout. Back: No spinal tenderness. No costovertebral tenderness. Full range of motion. Male : Normal genitalia with no discharge or lesions. Skin: Warm, dry with normal turgor. Normal color with no rashes, no lesions, and no evidence of cellulitis. MS/ Extremity: Pulses equal, no cyanosis. Neurovascular intact. Full, normal range of motion. Neuro: Awake and alert, GCS 15, oriented to person, place, time, and situation. Cranial nerves II-XII grossly intact. Motor strength 5/5 in all extremities. Sensory grossly intact. Cerebellar exam normal. Normal gait. Psych: Awake, alert, with orientation to person, place and time. Behavior, mood, and affect are within normal limits. 05:19 ENT: Posterior pharynx: Tonsils: bilaterally enlarged, with erythema, Uvula: normal, midline, non-edematous, no erythema, swelling, is not appreciated, erythema, is not appreciated, exudate, is not appreciated. 05:19 ECG was reviewed by the Attending Physician. 05:22 Respiratory: the patient does not display signs of respiratory distress, Respirations: diane normal, Breath sounds: rhonchi, that are mild, are scattered, Respiratory rate: 19 05:22 Musculoskeletal/extremity: DVT Exam: No signs of deep vein thrombosis. no pain, no swelling, no tenderness, negative Homans' sign noted on exam, no appreciated bluish discoloration, no erythema, no increased warmth. Vital Signs: 04:30 BP 130 / 98; Pulse 57; Resp 20 S; Temp 97.9(O); Pulse Ox 99% on R/A; Weight 81.65 kg aa9 (R); Height 5 ft. 6 in. (167.64 cm) (R); 04:49 BP 126 / 84; Pulse 60; Resp 20 S; Pulse Ox 100% on R/A; aa9 05:11 BP 111 / 74; Pulse 59; Resp 19 S; Pulse Ox 99% on R/A; aa9 05:58 BP 112 / 74; Pulse 58; Resp 19 S; Pulse Ox 97% on R/A; aa9 06:17 BP 107 / 76; Pulse 62; Resp 17 S; Pulse Ox 99% on R/A; aa9 04:30 Body Mass Index 29.05 (81.65 kg, 167.64 cm) aa9 MDM: 03:06 Patient medically screened. [facility] 05:22 Differential diagnosis: bronchitis, viral Infection, bacterial infection, URI, diane bronchitis, pneumonia UTI, gastroenteritis. Differential Diagnosis: Bronchitis Influenza Upper Respiratory Infection Sinusitis Otitis Media Allergic Rhinitis Viral Syndrome Pneumonia. Data reviewed: vital signs, nurses notes, lab test result(s), EKG, radiologic studies. 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 Test interpretation: by ED physician or midlevel provider: ECG, plain radiologic studies. Counseling: I had a detailed discussion with the patient and/or guardian regarding: the historical points, exam findings, and any diagnostic results supporting the discharge/admit diagnosis, lab results, radiology results, the need for outpatient follow up, for definitive care, a family practitioner. 04/28 03:05 Order name: COVID-19/FLU A+B; Complete Time: 05:17 [facility] 04/28 04:02 Order name: Troponin High Sensitivity; Complete Time: 06:01 [facility] 04/28 04:02 Order name: CBC with Diff; Complete Time: 05:17 [facility] 04/28 04:02 Order name: Comprehensive Metabolic Panel; Complete Time: 06:01 [facility] 04/28 04:02 Order name: Lipase; Complete Time: 06:01 [facility] 04/28 04:02 Order name: Strep [facility] 04/28 03:05 Order name: Chest Pa And Lat (2 Views) XRAY [facility] 04/28 04:02 Order name: EKG; Complete Time: 04:02 [facility] 04/28 04:02 Order name: EKG - Nurse/Tech; Complete Time: 04:48 [facility] 04/28 06:08 Order name: Throat Culture EDMS EC:19 Rate is 64 beats/min. Rhythm is regular. QRS [place] is Normal. MO interval is normal. QRS diane interval is normal. QT interval is normal. No Q waves. T waves are Normal. No ST changes noted. Clinical impression: Normal ECG and No evidence of ischemia. Interpreted by me. Reviewed by me. Administered Medications: 04:10 Drug: Motrin (ibuprofen) 800 mg Route: PO; aa9 04:47 Follow up: Response: No adverse reaction aa9 04:28 Drug: GI Cocktail without - (Maalox Suspension 30 ml, Lidocaine Liquid 2 % 15 aa9 ml) Route: PO; 04:47 Follow up: Response: No adverse reaction aa9 04:28 Drug: NS 0.9% 1000 ml Route: IV; Rate: 1 bolus; Site: left antecubital; aa9 04:28 Drug: Pepcid (famotidine) 20 mg Route: IVP; Site: left antecubital; aa9 04:48 Follow up: Response: No adverse reaction aa9 Disposition Summary: 04/28/22 06:01 Discharge Ordered Location: Home diane Problem: new diane Symptoms: have improved diane Condition: Stable diane Diagnosis - Acute upper respiratory infection, unspecified diane - Functional dyspepsia diane Followup: idane - With: Private Physician - When: 2 - 3 days - Reason: Recheck today's complaints, Continuance of care, Re-evaluation by your physician Discharge Instructions: - Discharge Summary Sheet diane - Upper Respiratory Infection, Adult diane - Cool Mist Vaporizer diane - Upper Respiratory Infection, Adult, [id number] diane - Cough, Adult, [id number] diane - Cough, Adult diane Forms: - Medication Reconciliation Form diane - Thank You Letter diane - Antibiotic Education idane - Prescription Opioid Use [facility] Prescriptions: - Pepcid 20 mg Oral Tablet - take 1 tablet by ORAL route every 12 hours for 21 days; 42 tablet; Refills: 0, diane Product Selection Permitted - Zithromax Z-Eusebio 250 mg Oral Tablet - take 1 tablet by ORAL route as directed for 5 days Day 1 - take two (2) tablets [facility] one time. Day 2, 3, 4 , 5 take one (1) tablet once daily.; 6 tablet; Refills: 0, Product Selection Permitted Signatures: Dispatcher [employer] Bhavesh Weeks MD MD cha Avalos, Aylin, RN RN aa9
[2022-04-28 06:21] VITALS: TEMP 97.9
[2022-04-28 06:26] VITALS: BP 107/76; O2SAT 99
--- NOTE | 2022-04-28 14:23 | RAD REPORT ---
EXAM DESCRIPTION: Chest Pa And Lat (2 Views) 04/28/2022 4:00 AM [facility] CLINICAL HISTORY: 46 years, Male, Cough COMPARISON: None. FINDINGS: 2 x-ray views of the chest (PA and lateral) were obtained, no prior films are available th is time for comparison. The cardiomediastinal silhouette demonstrate to be within normal limits. Th e heart is not enlarged. The thoracic aorta is mildly tortuous. The pulmonary vascular structures nor mal distribution. Costophrenic angles are sharp. No areas of consolidations or masses are identifie d. The rest of the soft tissue and bony structures are unremarkable. IMPRESSION: No acute cardiopulmonary disease. Electronically signed by: Kelvin Shrestha MD 04/28/2022 4:01 AM [facility] Due to temporary technical issues with the PACS/Fluency reporting system, reports are being signed by the in house radiologists without review as a courtesy to insure prompt reporting. The interpreting radiologist is fully responsible for the content of the report.
--- NOTE | 2022-04-30 16:36 | EKG ---
Test Date: 2022-04-28 Test Time: 04:41:15 Computer Science Intern: SARA MEASUREMENT RESULTS: Intervals: Rate: 64 UT: 146 QRSD: 102 QT: 400 QTc: 412 [place]: P: 41 UT: 146 QRS: 37 T: 24 INTERPRETIVE STATEMENTS: Normal sinus rhythm Normal ECG Compared to ECG 01/14/2022 12:44:36 No significant changes Electronically Signed On 04-30-22 16:34:20 AUTOMOTIVE PARTS COUNTER ASSOCIATE by Mickey Doan
== END 2022-04-28 06:17 | disposition home or self-care (01) ==
LOC: ER 02:57
DX: J06.9 Acute upper respiratory infection, unspecified (principal); K30 Functional dyspepsia; Z20.822 Contact with and (suspected) exposure to COVID-19
CPT/HCPCS: 93005; 87070; 85025; 36415; 87081; 84484; 83690; 80053; 0240U; 71046; 96374; 99284; J7030

== ENCOUNTER 2022-05-01 16:50 | Emergency (ER) | payer OTHER ==
--- OUTSIDE RECORDS SUMMARY | 2022-05-01 16:58 | XMS REPORT | Continuity of Care Document ---
:1975 Author Organization [facility] t Address [address] [place] [address] Care Team Providers Name Role Phone PCP, PATIENT DOES NOT HAVE A Primary Care Physician Unavaila BRAN Cartagena Attending Clinician Unavailable Bran Red DO Attending Clinician Bebeto Woody Attending Clinician BRAN RED Admitting Clinician Unavailable Payers Payer Name Policy Type Policy Number Effective Date Expiration Date [facility] [id number] 2014 MEDICAID 00:00:00 Problems Condition Condition Condition [...] from the original. 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 Allergies, Adverse Reactions, Alerts Allergy Allergy [...] Quantity Comments Source Exposure to Not sure [facility]-CoV-2 [facility] (event) Branch Alcohol intake 2018-05-26 2018-05-26 Current University 00:00:00 00:00:00 non-drinker of [facility] alcohol Craig (finding) Sex Assigned At [birth year] Universit y of 00:00:00 00:00:00 [facility] Smoking Status Start Date Stop Date Source Never smoker [facility] Social History [facility] Medications Ordered Filled Start Stop Current Ordering Indication Dosage Frequency Signature Comments Components Source Medication Medication Date Date Medication? Clinician (SIG) Name Name iopamidol 2020-06- No [id number] 120mL 120 mL, Univers (ISOVUE 06-27 Intravenou ity o f 370-500 mL) 17:15: 16:04 s, ONCE, 1 [place] injection 00 :00 dose, On Medica l 120 mL [facility] 04/27/21 at 1115, Routine ondansetron 2020-06- No 4mg 4 mg, Slow Univers (ZOFRAN 06-27 IV Push, ity of (PF)) 16:45: 15:45 ONCE, 1 [place] injection 4 00 :00 dose, On Medi faina mg [facility] 04/27/21 at 1045, Routine sucralfate 2020-06 Yes [id number] 1g Take 1 U nivers 1 gram -22 tablet by ity of tablet 00:00: mouth [place] 00 before Medical meals and Branch at bedtime. dicyclomine 2020-06 Yes [id number] 10mg Take 1 Univers (BENTYL) 10 -22 capsule by it y of mg capsule 00:00: mouth [place] 00 every 8 Medical (eight) Branch hours as needed for Abdominal pain. ondansetron 2020-06 Yes [id number] 4mg Take 1 Univers 4 mg -22 tablet by ity of disintegrat 00:00: mouth [place] ing tablet 00 every 8 Medica l (eight) Branch hours as needed for Nausea and Vomiting (N/V). omeprazole 2020-06- No [id number] 20mg Take 1 Univers 20 mg 1-22 12-23 capsule by ity of capsule 00:00: 05:59 mouth [place] 00 :00 daily for Medical 30 days. Branch nystatin Yes [id number] 357912S Take 5 mL Univers 100,000 1-25 by mouth 4 ity of unit/mL 00:00: (four) [place] suspension 00 times Medical daily. Branch ondansetron Yes [id number] 4mg Take 1 Univers 4 mg tablet [...] 0-11 tab, PO, l 15:33: Q6H, 0 [place] 00 Refill(s) Omeprazole 2017-06 No 40 mg, [...] in 0-11 PO, Q12H, l 15:33: 0 [place] 00 Refill(s) hydrOXYzine 2017-06 No 25 mg, [...] tab, PO, l tablet 15:33: Q12H, 0 [place] 00 Refill(s) Famotidine 2017-06 No 20 mg = 1 Me moria 0-11 tab, PO, l 15:33: Q12H, 0 [place] 00 Refill(s) Ciprofloxac 2017-06 No 500 mg, Mem oria in 0-11 PO, Q12H, l 15:33: 0 [place] 00 Refill(s) hydrOXYzine 2017-06 No 25 mg, PO, Memoria hydrochlori 0-11 Q6H, 0 l de 15:33: Refill(s) Metronidazo 2017-06 No 500 mg = 1 Memoria le 0-11 tab, PO, l 15:33: Q6H, 0 [place] 00 Refill(s) Omeprazole 2017-06 No 40 mg, [...] 0-11 tab, PO, l 15:33: Q12H, 0 [place] 00 Refill(s) Ciprofloxac 2017-06 No 500 mg, [...] omeprazole 2017-06- No Univer s 40 mg 004-27 ity of capsule 00:00: 00:00 [place] 00 :00 [facility] hydrocortis Yes 25mg Insert 1 Un nelida one 8-24 Suppositor ity of (ANUSOL-HC) 00:00: y into [place] 25 mg 00 rectum 2 Medical suppository (two) Branch times daily. CALCIUM Yes Take by Univers CARBONATE 02 mouth. ity of (CALCIUM 14:20: [place] 500 ORAL) 36 [facility] Vital Signs Vital Name Observation Time Observation Value Comments Source Systolic blood 2021-04-27 17:30:43 120 mm[Hg] Univer sity of pressure [facility] Diastolic blood 2021-04-27 17:30:43 75 mm[Hg] Unive rsity of [facility] Heart rate 2021-04-27 17:30:43 70 /min [facility] Body temperature 2021-04-27 17:30:43 36.78 [facility] Respiratory rate 2021-04-27 17:30:43 18 /min [facility] Oxygen saturation in 2021-04-27 17:30:43 100 /min [facility] Arterial blood by [facility] Pulse oximetry Branch Heart Rate 2018-03-16 15:31:00 Jefferson [facility] Weight 2018-03-16 15:31:00 [facility] M[facility]all Height 2018-03-16 15:31:00 180.34 cm Jefferson Mccall BMI Calculated 2018-03-16 15:31:00 Quang stevens Cal Systolic (mm Hg) 2018-03-16 15:31:00 Ming mancia Cal Diastolic (mm Hg) 2018-03-16 15:31:00 Mem dequan Mccall Procedures Procedure Date / Time Performed Performing Clinician [facility] e CT ABDOMEN PELVIS W 2021-04-27 16:08:21 [facility] Branch LIPASE 2021-04-27 15:45:00 Singer [facility] COMP. METABOLIC PANEL 2021-04-27 15:45:00 Bran Red [facility] ([id number]) [facility] CBC WITH DIFF 2021-04-27 15:45:00 [facility] URINALYSIS 2021-04-27 15:45:00 [facility] NOTICE OF PRIVACY 2021-04-27 14:21:16 Doctor Unassigned, No Univ [facility] PRACTICES Name [facility] CONSENT/REFUSAL FOR 2021-04-27 14:20:59 Doctor Unassigned, No [facility] AND Name [facility] TREATMENT Encounters Start End Encounter Admission Attending Care Care Encounter Source Date/Time Date/Time Type Type Clinicians Facility Department ID 2021-04-27 2021-04-27 Emergency X SINGER NYANDREA ERT [id number] Univers 08:27:00 11:54:00 BRAN ayala [facility] 2021-04-27 2021-04-27 Emergency Singer [email or web address] [id number] Univers 08:27:00 11:54:00 Bran CARMONA [id number] i ty [facility] [id number] [facility] [id number] [facility] faina 084 Branch 2018-05-26 2018-05-28 Outside nullFlavo MNA [id number] Memoria 16:20:00 05:59:59 Medical r Neurology 02 l Records Payal Mccall 2018-05-26 2018-05-28 Outside nullFlavo MNA [id number] Memoria 16:20:00 05:59:59 Medical r Neurology 02 l Records Payal Mccall 2018-05-26 2018-05-27 Outpatient MHMISCHER MHMISCHER [id number] 10:20:00 23:59:59 02 2018-04-21 2018-04-21 Ambulatory nullFlavo MNA [id number] Memoria 17:15:00 17:15:00 Pre-Reg r Neurology 01 l Payal Mccall 2018-04-21 2018-04-21 Ambulatory nullFlavo MNA [id number] Memoria 17:15:00 17:15:00 Pre-Reg r Neurology 01 l Pyaal Mccall 2018-04-21 2018-04-21 Outpatient MHIE MHIE [id number] Memoria 11:15:00 11:15:00 01 miguel angel Mccall 2018-04-21 2018-04-21 [id number] 11:15:00 11:15:00 Bebeto Maury Marquis 2018-03-22 2018-03-24 Outside nullFlavo MNA [id number] Memoria 22:51:00 04:59:59 Medical r Neurology 01 l Records Payal Mccall 2018-03-22 2018-03-24 Outside nullFlavo MNA [id number] Memoria 22:51:00 04:59:59 Medical r Neurology 01 l Mandi Mccall 2018-03-22 2018-03-24 Phone nullFlavo MNA [id number] Memoria 21:22:00 04:59:59 Message r Neurology 00 l Payal Mccall 2018-03-22 2018-03-24 Phone nullFlavo MNA [id number] Memoria 21:22:00 04:59:59 Message r Neurology 00 l Payal Mccall 2018-03-22 2018-03-23 Outpatient MHMISCHER MHMISCHER [id number] 17:51:00 23:59:59 01 2018-03-22 2018-03-23 Outpatient MHMISCHER MHMISCHER [id number] 16:22:00 23:59:59 00 2018-03-16 2018-03-17 Outpatient nullFlavo MNA [id number] Memoria 16:00:00 04:59:59 r Neurology 00 l Payal Mccall 2018-03-16 2018-03-17 Outpatient nullFlavo MNA [id number] Memoria 16:00:00 04:59:59 r Neurology 00 l Payal Mccall 2018-03-16 2018-03-16 Outpatient CHRISTINE Woody [id number] 11:00:00 23:59:59 Bebeto Venu Marquis 2018-03-16 2018-03-16 Outpatient GALO BLUE [id number] Memoria 11:00:00 11:00:00 00 miguel angel [...] 34.5 g/dL 31.2-35.0 RDW-SD (test code = 92966-6) 39.9 fL 38.5-51.6 RDW-CV (test code = 788-0) 12.4 % 12.1-15.4 PLT (test code = 777-3) See_Comment L [Au tomated message] The system which ge nerated this result transmit malorie reference range: 150 - 32 8 10*3/?L. The reference range was not used to interpret th is result as normal/abnormal . MPV (test code = 02800-6) 10.6 fL 9.8-13.0 IPF % (test code = 3.9 % 1.2-10.7 Platelet count measured by [id number]) fluorescence me thod. NRBC/100 WBC (test code = See_Comment [ Automated message] The [id number]) system which [employer] nerated this result transmit malorie reference range: 0.0 - 10 .0 /100 WBCs. The reference r elizabeth was not used to interpr et this result as normal/abnor mal. NRBC x10^3 (test code = <0.01 See_Comment [Au tomated message] The [id number]) system which [employer] nerated this result transmit malorie reference range: 10*3/?L. The reference range was not u sed to interpret this result as normal/abnormal . GRAN MAT (NEUT) % (test code 45.9 % = 770-8) IMM GRAN % (test code = 0.20 % 4405998787) LYMPH % (test code = 736-9) 41.6 % MONO % (test code = 5905-5) 5.3 % EOS % (test code = 713-8) 6.5 % BASO % (test code = 706-2) 0.5 % GRAN MAT x10^3(ANC) (test 2.59 10*3/uL 1.99-6.95 code = 9027640310) IMM GRAN x10^3 (test code = <0.03 0.00-0.06 3144394321) LYMPH x10^3 (test code = 2.35 10*3/uL 1.09-3.23 731-0) MONO x10^3 (test code = 0.30 10*3/uL 0.36-1.02 L 742-7) EOS x10^3 (test code = 0.37 10*3/uL 0.06-0.53 711-2) BASO x10^3 (test code = 0.03 10*3/uL 0.01-0.09 704-7) Lab Interpretation (test Abnormal code = 59440-3) [facility] [place] [facility] ([id number])2021-04-27 16:20:53 Test Item Value Reference Range Interpretation Comments NA (test code = 138 mmol/L 135-145 1571919698) K (test code = 4.3 mmol/L 3.5-5.0 6297602911) CL (test code = 104 mmol/L 98-108 2531565589) CO2 TOTAL (test code 28 mmol/L 23-31 = 4072312468) AGAP (test code = 2-16 4408200118) BUN (test code = 10 mg/dL 7-23 4795365293) GLUCOSE (test code = 95 mg/dL 70-110 0932833489) CREATININE (test code 0.93 mg/dL 0.60-1.25 = 0252656546) TOTAL BILI (test code 1.1 mg/dL 0.1-1.1 = 4891717210) CALCIUM (test code = 9.2 mg/dL 8.6-10.6 3500280042) T PROTEIN (test code 7.3 g/dL 6.3-8.2 = 3787717640) ALBUMIN (test code = 4.2 g/dL 3.5-5.0 2055740626) ALK PHOS (test code = 55 U/L 34-122 0291910343) ALTv (test code = 21 U/L 5-50 1742-6) AST(SGOT) (test code 28 U/L 13-40 = 7688414501) eGFR (test code = mL/min/1.73m2 9248885469) ABA (test code = ABA) Association of [...] or urine or abnormalities in imaging tests). [facility] [place] [facility] 16:20:33 Test Item Value Reference Range Interpretation Comments LIPASE (test code = 6427664660) 58 U/L 0-220 Lab Interpretation (test code = Normal 18887-6) [facility]"
[2022-05-01] MEDS ORDERED: ONDANSETRON 4 MG/2 ML VIAL ONE (18:02)
[2022-05-01] MEDS ORDERED: NA CHLORIDE 0.9% 1,000 ML ONE (18:02)
[2022-05-01 18:16] LABS: Urine Blood Negative (Negative); Urine Glucose Negative (Negative); Urine Protein Negative (Negative); Urine pH 7.5 (5.0-7.0)
[2022-05-01 18:26] LABS: Absolute Lymphocytes (CBC) 2.1 K/uL (0.7-4.9); Hematocrit 42.3 % (39.6-49.0); Lymphocytes % 33.7 % (15.3-44.8); MCV 86.4 fL (80-100); MPV 8.6 fL (7.6-11.3); RBC Red Blood Cell Count 4.89 M/uL (4.33-5.43)
[2022-05-01 18:43] LABS: Bilirubin Total 0.7 mg/dL (0.2-1.0); Potassium 3.9 mmol/L (3.5-5.1); Protein, Total 7.4 g/dL (6.4-8.2)
--- NOTE | 2022-05-01 19:02 | ER ---
Nurse's Notes [facility] Name: Juan Campos Age: 46 yrs Sex: Male : 1975 Arrival Date: 05/01/2022 Time: 17:05 Bed 14 Private MD: Diagnosis: Nausea with vomiting, unspecified;Diarrhea, unspecified Presentation: 05/01 17:10 Chief complaint: Patient states: Pt with multiple complaints. Reports nausea, diarrhea, kb3 and abdominal pain x1 day that he believes to be related to an STI exposure 1 month ago for which he was treated in this ED. Also reports cough, congestion, and dizziness for an unknown amount of time. Coronavirus screen: Vaccine status: Patient reports receiving the 2nd dose of the covid vaccine. Client denies travel out of the [place] in the last 14 days. Ebola Screen: Patient negative for fever greater than or equal to 101.5 degrees Fahrenheit, and additional compatible Ebola Virus Disease symptoms Patient denies exposure to infectious person. Patient denies travel to an Ebola-affected area in the 21 days before illness onset. Initial Sepsis Screen: Does the patient meet any 2 criteria? No. Patient's initial sepsis screen is negative. Does the patient have a suspected source of infection? No. Patient's initial sepsis screen is negative. Risk Assessment: Do you want to hurt yourself or someone else? Patient reports no desire to harm self or others. Onset of symptoms was April 29, 2022. 17:10 Method Of Arrival: Ambulatory kb3 17:10 Acuity: [place] 3 kb3 Triage Assessment: 17:13 General: Appears in no apparent distress. Behavior is calm, cooperative, anxious. Pain: kb3 Complains of pain in abdomen Pain does not radiate. Pain currently is 7 out of 10 on a pain scale. Quality of pain is described as aching, pressure. Historical: - Allergies: 17:13 No Known Allergies; kb3 - Home Meds: 17:13 None [Active]; kb3 - PMHx: 17:13 Sexually transmitted infectious disease; kb3 - PSHx: 17:13 hernia; Vasectomy; kb3 - Immunization history:: Adult Immunizations up to date, Client reports receiving the 2nd dose of the Covid vaccine, Last tetanus immunization: up to date. - Social history:: Smoking status: Patient denies any tobacco usage or history of. Screenin:00 Abuse screen: Denies threats or abuse. Denies injuries from another. Nutritional bp screening: No deficits noted. Tuberculosis screening: No symptoms or risk factors identified. Fall Risk None identified. Assessment: 17:30 General: SEE TRIAGE NOTE. bp 18:30 Reassessment: No changes from previously documented assessment. Patient and/or family bp updated on plan of care and expected duration. Pain level reassessed. 19:17 Reassessment: Patient appears in no apparent distress at this time. Patient and/or jb4 family updated on plan of care and expected duration. Pain level reassessed. Patient is alert, oriented x 3, equal unlabored respirations, skin warm/dry/pink. Patient states feeling better. Vital Signs: 17:10 BP 144 / 96; Pulse 84; Resp 20; Temp 99.1; Pulse Ox 100% ; Weight 81.65 kg; Height 5 kb3 ft. 9 in. (175.26 cm); Pain 7/10; 17:10 Body Mass Index 26.58 (81.65 kg, 175.26 cm) kb3 ED Course: 17:05 Patient arrived in ED. jj6 17:07 Katherin Garcia FNP-C is [facility]. kb 17:07 Caden Alcala DO is Attending Physician. kb 17:13 Triage completed. kb3 17:13 Arm band placed on right wrist. kb3 17:45 Inserted saline lock: 20 gauge in left antecubital area, using aseptic technique. Blood bp collected. 17:55 Ilan Worthington, RN is Primary Nurse. bp 18:00 Patient has correct armband on for positive identification. Bed in low position. Call bp light in reach. Side rails up X2. 18:59 Urine Dipstick-Ancillary Sent. bp 19:17 No provider procedures requiring assistance completed. IV discontinued, intact, jb4 bleeding controlled, No redness/swelling at site. Pressure dressing applied. Administered Medications: 17:45 Drug: NS 0.9% 1000 ml Route: IV; Rate: 1 bolus; Site: left antecubital; bp 19:18 Follow up: Response: No adverse reaction; IV Status: Completed infusion; IV Intake: jb4 1000ml 17:45 Drug: Zofran (Ondansetron) 4 mg Route: IVP; Site: left antecubital; bp 18:59 Follow up: Response: No adverse reaction bp Medication: 19:17 VIS not applicable for this client. jb4 Intake: 19:18 IV: 1000ml; Total: 1000ml. jb4 Outcome: 19:02 Discharge ordered by . martinez 19:17 Discharged to home ambulatory. jb4 19:17 Condition: stable 19:17 Discharge instructions given to patient, Instructed on discharge instructions, follow up and referral plans. Demonstrated understanding of instructions, follow-up care. 19:18 Patient left the ED. jb4 Signatures: Katherin Garcia, ENGLISH PROFESSOR-C ENGLISH PROFESSOR-Ckb Alfredo Armas, RN RN jb4 Ilan Worthington, RN RN bp Angelica Singhj6 Mine Wallace, RN RN kb3 Corrections: (The following items were deleted from the chart) 17:56 17:10 Chief complaint: Patient states: Nausea, diarrhea, and abdominal pain x1 day. Pt kb3 has been seen in this ED twice recently for multiple complaints kb3
--- NOTE | 2022-05-01 19:02 | EDPHYS ---
Physician Documentation [facility] Name: Juan Campos Age: 46 yrs Sex: Male : 1975 Arrival Date: 05/01/2022 Time: 17:05 Bed 14 Private MD: ED Physician Caden Alcala HPI: 05/01 18:38 This 46 yrs old Male presents to ER via Ambulatory with complaints of STD Exposure. kb 18:38 The patient presents to the emergency department with nausea, vomiting. Onset: The kb symptoms/episode began/occurred last week. Possible causes: unknown. The symptoms are aggravated by nothing. The symptoms are alleviated by nothing. Associated signs and symptoms: Pertinent positives: abdominal pain, diarrhea, nausea, vomiting. Severity of symptoms: At their worst the symptoms were moderate in the emergency department the symptoms are unchanged. The patient has not experienced similar symptoms in the past. The patient has been recently seen at the [facility] Emergency Department. Pt reports n/v/d for a week. Has been seen here twice for this. CT, labs, CXR all wnl on previous 2 visits. . Historical: - Allergies: 17:13 No Known Allergies; kb3 - Home Meds: 17:13 None [Active]; kb3 - PMHx: 17:13 Sexually transmitted infectious disease; kb3 - PSHx: 17:13 hernia; Vasectomy; kb3 - Immunization history:: Adult Immunizations up to date, Client reports receiving the 2nd dose of the Covid vaccine, Last tetanus immunization: up to date. - Social history:: Smoking status: Patient denies any tobacco usage or history of. ROS: 18:37 Constitutional: Negative for fever, chills, and weight loss. kb 18:37 Abdomen/GI: Positive for nausea, vomiting, and diarrhea, Negative for abdominal pain. 18:37 All other systems are negative. Exam: 18:37 Constitutional: This is a well developed, well nourished patient who is awake, alert, kb and in no acute distress. Head/Face: Normocephalic, atraumatic. ENT: Moist Mucous membranes Cardiovascular: Regular rate and rhythm with a normal S1 and S2. No gallops, murmurs, or rubs. No pulse deficits. Respiratory: Respirations even and unlabored. No increased work of breathing. Talking in full sentences Abdomen/GI: Soft, non-tender. No distention Skin: Warm, dry with normal turgor. Normal color. MS/ Extremity: Pulses equal, no cyanosis. Neurovascular intact. Full, normal range of motion. Neuro: Awake and alert, GCS 15, oriented to person, place, time, and situation. Moves all extremities. Normal gait. Vital Signs: 17:10 BP 144 / 96; Pulse 84; Resp 20; Temp 99.1; Pulse Ox 100% ; Weight 81.65 kg; Height 5 kb3 ft. 9 in. (175.26 cm); Pain 7/10; 17:10 Body Mass Index 26.58 (81.65 kg, 175.26 cm) kb3 MDM: 17:15 Patient medically screened. kb 18:36 Data reviewed: vital signs, nurses notes. Data interpreted: Pulse oximetry: on room air kb is 100 %. Interpretation: normal. 18:52 Counseling: I had a detailed discussion with the patient and/or guardian regarding: the kb historical points, exam findings, and any diagnostic results supporting the discharge/admit diagnosis, lab results, the need for outpatient follow up, a family practitioner, to return to the emergency department if symptoms worsen or persist or if there are any questions or concerns that arise at home. 05/01 18:17 Order name: Urine Dipstick-Ancillary; Complete Time: 18:19 EDMS 05/01 18:18 Order name: Comprehensive Metabolic Panel; Complete Time: 18:51 EDMS 05/01 18:18 Order name: Lipase; Complete Time: 18:51 EDMS 05/01 17:28 Order name: IV Saline Lock; Complete Time: 18:46 kb 05/01 17:28 Order name: Labs collected and sent; Complete Time: 18:46 kb 05/01 17:28 Order name: Urine Dipstick-Ancillary (obtain specimen); Complete Time: 18:46 kb 05/01 18:18 Order name: CBC with Automated Diff; Complete Time: 18:31 EDMS 05/01 18:18 Order name: Urine Dipstick-Ancillary EDMS Administered Medications: 17:45 Drug: NS 0.9% 1000 ml Route: IV; Rate: 1 bolus; Site: left antecubital; bp 19:18 Follow up: Response: No adverse reaction; IV Status: Completed infusion; IV Intake: jb4 1000ml 17:45 Drug: Zofran (Ondansetron) 4 mg Route: IVP; Site: left antecubital; bp 18:59 Follow up: Response: No adverse reaction bp Disposition: 18:50 Co-signature as Attending Physician, Caden Alcala DO I was immediately available on-site ms3 in the Emergency Department for consultation in the care of the patient. Disposition Summary: 05/01/22 19:02 Discharge Ordered Location: Home kb Condition: Stable kb Diagnosis - Nausea with vomiting, unspecified kb - Diarrhea, unspecified kb Followup: kb - With: Emergency Department - When: As needed - Reason: Worsening of condition Followup: kb - With: Private Physician - When: 2 - 3 days - Reason: Recheck today's complaints, Continuance of care, Re-evaluation by your physician Discharge Instructions: - Discharge Summary Sheet kb - Food Choices to Help Relieve Diarrhea, Adult kb - Viral Gastroenteritis, Adult, [id number] kb Forms: - Medication Reconciliation Form kb - Thank You Letter kb - Antibiotic Education kb - Prescription Opioid Use kb Signatures: Dispatcher [employer] EDMS Katherin Garcia, SUPERINTENDENT CAR CONSTRUCTION-C SUPERINTENDENT CAR CONSTRUCTION-Ckb Ilan Worthington, RN RN Caden Davis DO DO ms3 Mine Wallace, RN RN kb3 Alfredo Armas RN jb4 Corrections: (The following items were deleted from the chart) 18:36 18:27 COMPREHENSIVE METABOLIC PANEL+C.LAB.BRZ ordered. EDMS EDMS 18:36 18:27 LIPASE+C.LAB.BRZ ordered. EDMS EDMS 18:37 18:27 CBC+H.LAB.BRZ ordered. EDMS EDMS
[2022-05-01 19:23] VITALS: BP 144/96; TEMP 99.1; O2SAT 100
== END 2022-05-01 19:18 | disposition home or self-care (01) ==
LOC: ER 16:50
DX: R11.2 Nausea with vomiting, unspecified (principal); R19.7 Diarrhea, unspecified
CPT/HCPCS: 96361; 85025; 36415; 81003; 83690; 80053; 96374; 99283; J7030; J2405

== ENCOUNTER 2022-10-01 03:58 | Emergency (ER) | payer OTHER ==
--- OUTSIDE RECORDS SUMMARY | 2022-10-01 04:08 | XMS REPORT | Continuity of Care Document ---
:1975 Author Organization [facility] t Address [address] [facility] [address] [place] [address] Care Team Providers Name Role Phone Jluis Ferrell Primary Care Physician PIOTR CHANG Attending Clinician Unavailable Piotr Chang MD Attending Clinician Gabrielle Forman RN Attending Clinician Unavailable Doctor Unassigned, Bessie Attending Clinician Unavailable Jluis Ferrell Attending Clinician JLUIS WHELAN Attending Clinician Unavailable Lab, Ang - Db Attending Clinician Unavailable BRAN RED Attending Clinician Unavailable Bran Red DO Attending Clinician Bebeto Woody Attending Clinician PIOTR CHANG Admitting Clinician Unavailable BRAN RED Admitting Clinician Unavailable Payers Payer Name Policy Type Policy Number Effective Date Expiration Date S lawrence PHCS GENERIC [id number] 00:00:00 [place]ICAID OF [place] [id number] 2021 00:00:00 [facility] [id number] 2014 MEDICAID 00:00:00 Problems Condition Condition Condition Status Onset Resolution Last Treating Co mments Source Name Details Category Date Date Treatment Clinician Date Esophageal Esophageal Disease Active Overview : Univers dysphagia dysphagia 3-08 Formattin i ty of 00:00: g of this [place] 00 note Medical might be Branch different from the original. Added automatic ally from request for surgery [id number] Abdominal Abdominal Disease Active Overview: Univers pain, pain, 3-08 Formattin ity of unspecifie unspecifie 00:00: g of this [place] d d 00 note Medical abdominal abdominal might be Br anch location location different from the original. Added automatic ally from request for surgery [id number] Wellness Wellness Disease Active Unive rs examinatio examinatio 2-13 it y of n n 00:00: [place] 00 Medical Branch Need for Need for Disease Active Unive rs hepatitis hepatitis 2-13 ity of C C 00:00: [place] screening screening 00 Medi faina test test Branch Need for Need for Disease Active Unive rs vaccinatio vaccinatio 2-13 it y of n n 00:00: [place] 00 Medical Branch Bipolar Bipolar Disease Active Overview: Univ ers disorder disorder Formattin ity of g of this [place] note Medical might be Branch different from the original. 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 Paresthesi Paresthes Problem Active 2018-12-15 Memoria a ia 11:44:54 l (finding) (finding) Herm binu Active Problem 12/15/2018 [facility] Stomach Stomach Problem Active 2018-12-15 Me moria ache ache 11:44:54 l (finding) (finding) Herm binu Active Problem 12/15/2018 [facility] Allergies, Adverse Reactions, Alerts Allergy Allergy Status Severity Reaction(s) Onset Inactive Treating Comm ents Source Name Type Date Date Clinician Cat Hair Propensi Active Itching Unive rs Std ty to 6-16 ity of Allergen adverse 00:00: [place] ic Ext reaction 00 Medical s Branch CAT HAIR DRUG Active ITCHING Univers STD 6-16 ity of ALLERGEN 00:00: [place] IC EXT 00 Medical Branch No Known No Known Active Memori a Medicati Medicati l on on Cal Guzmán s s Social History Social Habit Start Date Stop Date Quantity Comments Source Exposure to 2022-09-05 2022-09-15 Not sure University SARS-CoV-2 00:00:00 11:05:00 [place] Medical (event) Branch Alcohol intake 2022-08-09 2022-08-09 Current University of 00:00:00 00:00:00 non-drinker of [place] Medi faina alcohol (finding) Branch Tobacco use and 2022-07-19 2022-07-19 Smokeless tobacco Un iversity of exposure 00:00:00 00:00:00 non-user [facility] Tobacco Comment 2022-07-19 2022-07-19 Second hand smoke Un iversity of 00:00:00 00:00:00 [facility] Sex Ass[birth year] At [birth year] Universit y of 00:00:00 00:00:00 [facility] Smoking Status Start Date Stop Date Source Never smoked tobacco [facility] Social History [facility] Medications Ordered Filled Start Stop Current Ordering Indication Dosage Frequency Signature Comments Components Source Medication Medication Date Date Medication? Clinician (SIG) Name Name CALCIUM Yes Take by Univers CARBONATE 4-12 mouth. ity of (CALCIUM 11:03: [place] 500 ORAL) 23 [facility] CALCIUM Yes Take by Univers CARBONATE 4-12 mouth. ity of (CALCIUM 11:03: [place] 500 ORAL) 23 [facility] CALCIUM Yes Take by Univers CARBONATE 4-12 mouth. ity of (CALCIUM 11:03: [place] 500 ORAL) 23 [facility] CALCIUM Yes Take by Univers CARBONATE 4-12 mouth. ity of (CALCIUM 11:03: [place] 500 ORAL) 23 [facility] CALCIUM Yes Take by Univers CARBONATE 4-12 mouth. ity of (CALCIUM 11:03: [place] 500 ORAL) 23 [facility] CALCIUM Yes Take by Univers CARBONATE 4-12 mouth. ity of (CALCIUM 11:03: [place] 500 ORAL) 23 [facility] CALCIUM Yes Take by Univers CARBONATE 4-12 mouth. ity of (CALCIUM 11:03: [place] 500 ORAL) 23 [facility] sodium,pota 2022- Yes 117mL Take 117 Univers ssium,mag 3-07 03-08 mL by ity of sulfates 00:00: 05:59 [place] 17.5-3.13-1 00 :00 now for 1 Med ical .6 gram dose. Branch CALCIUM Yes Take by Univers CARBONATE 2-13 mouth. ity of (CALCIUM 14:04: [place] 500 ORAL) 49 [facility] CALCIUM Yes Take by Univers CARBONATE 2-13 mouth. ity of (CALCIUM 14:04: [place] 500 ORAL) 49 [facility] CALCIUM Yes Take by Univers CARBONATE 2-13 mouth. ity of (CALCIUM 14:04: [place] 500 ORAL) 49 Medical Branch CALCIUM Yes Take by Univers CARBONATE 2-13 mouth. ity of (CALCIUM 14:04: [place] 500 ORAL) 49 [facility] Branch CALCIUM Yes Take by Univers CARBONATE 2-13 mouth. ity of (CALCIUM 14:04: [place] 500 ORAL) 49 Medical Branch CALCIUM Yes Take by Univers CARBONATE 2-13 mouth. ity of (CALCIUM 14:04: [place] 500 ORAL) 49 [facility] Branch CALCIUM Yes Take by Univers CARBONATE 2-13 mouth. ity of (CALCIUM 14:04: [place] 500 ORAL) 49 [facility] Branch CALCIUM Yes Take by Univers CARBONATE 2-13 mouth. ity of (CALCIUM 14:04: [place] 500 ORAL) 49 [facility] Branch CALCIUM Yes Take by Univers CARBONATE 2-13 mouth. ity of (CALCIUM 14:04: [place] 500 ORAL) 49 [facility] Branch CALCIUM Yes Take by Univers CARBONATE 2-13 mouth. ity of (CALCIUM 14:04: [place] 500 ORAL) 49 [facility] Branch iopamidol 2020-06- No [id number] 120mL 120 mL, Univers (ISOVUE 06-27 Intravenou ity o f 370-500 mL) 17:15: 16:04 s, ONCE, 1 [place] injection 00 :00 dose, On Medica l 120 mL [facility] 04/27/21 at 1115, Routine ondansetron 2020-06- No 4mg 4 mg, Slow Univers (ZOFRAN 06-27 IV Push, ity of (PF)) 16:45: 15:45 ONCE, 1 [place] injection 4 00 :00 dose, On Medi faina mg [facility] 04/27/21 at 1045, Routine sucralfate 2020-06 Yes [id number] 1g Take 1 U nivers 1 gram - tablet by ity of tablet 00:00: mouth [place] 00 before Medical meals and Branch at bedtime. dicyclomine 2020-06 Yes [id number] 10mg Take 1 Univers (BENTYL) 10 - capsule by it y of mg capsule 00:00: mouth [place] 00 every 8 Medical (eight) Branch hours as needed for Abdominal pain. ondansetron 2020-06 Yes [id number] 4mg Take 1 Univers 4 mg 1-22 tablet by ity of disintegrat 00:00: mouth [place] ing tablet 00 every 8 Medica l (eight) Branch hours as needed for Nausea and Vomiting (N/V). sucralfate 2020-06 Yes [id number] 1g Take 1 U nivers 1 gram 1-22 tablet by ity of tablet 00:00: mouth [place] 00 before Medical meals and Branch at bedtime. dicyclomine 2020-06 Yes [id number] 10mg Take 1 Univers (BENTYL) 10 1-22 capsule by it y of mg capsule 00:00: mouth [place] 00 every 8 Medical (eight) Branch hours as needed for Abdominal pain. ondansetron 2020-06 Yes [id number] 4mg Take 1 Univers 4 mg 1-22 tablet by ity of disintegrat 00:00: mouth [place] ing tablet 00 every 8 Medica l (eight) Branch hours as needed for Nausea and Vomiting (N/V). sucralfate 2020-06 Yes [id number] 1g Take 1 U nivers 1 gram 1-22 tablet by ity of tablet 00:00: mouth [place] 00 before Medical meals and Branch at bedtime. dicyclomine 2020-06 Yes [id number] 10mg Take 1 Univers (BENTYL) 10 1-22 capsule by it y of mg capsule 00:00: mouth [place] 00 every 8 Medical (eight) Branch hours as needed for Abdominal pain. ondansetron 2020-06 Yes [id number] 4mg Take 1 Univers 4 mg 1-22 tablet by ity of disintegrat 00:00: mouth [place] ing tablet 00 every 8 Medica l (eight) Branch hours as needed for Nausea and Vomiting (N/V). sucralfate 2020-06 Yes [id number] 1g Take 1 U nivers 1 gram 1-22 tablet by ity of tablet 00:00: mouth [place] 00 before Medical meals and Branch at bedtime. dicyclomine 2020-06 Yes [id number] 10mg Take 1 Univers (BENTYL) 10 1-22 capsule by it y of mg capsule 00:00: mouth [place] 00 every 8 Medical (eight) Branch hours as needed for Abdominal pain. ondansetron 2020-06 Yes [id number] 4mg Take 1 Univers 4 mg 1-22 tablet by ity of disintegrat 00:00: mouth [place] ing tablet 00 every 8 Medica l (eight) Branch hours as needed for Nausea and Vomiting (N/V). sucralfate 2020-06 Yes [id number] 1g Take 1 U nivers 1 gram 1-22 tablet by ity of tablet 00:00: mouth [place] 00 before Medical meals and Branch at bedtime. dicyclomine 2020-06 Yes [id number] 10mg Take 1 Univers (BENTYL) 10 1-22 capsule by it y of mg capsule 00:00: mouth [place] 00 every 8 Medical (eight) Branch hours as needed for Abdominal pain. ondansetron 2020-06 Yes [id number] 4mg Take 1 Univers 4 mg 1-22 tablet by ity of disintegrat 00:00: mouth [place] ing tablet 00 every 8 Medica l (eight) Branch hours as needed for Nausea and Vomiting (N/V). sucralfate 2020-06 Yes [id number] 1g Take 1 U nivers 1 gram 1-22 tablet by ity of tablet 00:00: mouth [place] 00 before Medical meals and Branch at bedtime. dicyclomine 2020-06 Yes [id number] 10mg Take 1 Univers (BENTYL) 10 1-22 capsule by it y of mg capsule 00:00: mouth [place] 00 every 8 Medical (eight) Branch hours as needed for Abdominal pain. ondansetron 2020-06 Yes [id number] 4mg Take 1 Univers 4 mg 1-22 tablet by ity of disintegrat 00:00: mouth [place] ing tablet 00 every 8 Medica l (eight) Branch hours as needed for Nausea and Vomiting (N/V). sucralfate 2020-06 Yes [id number] 1g Take 1 U nivers 1 gram 1-22 tablet by ity of tablet 00:00: mouth [place] 00 before Medical meals and Branch at bedtime. dicyclomine 2020-06 Yes [id number] 10mg Take 1 Univers (BENTYL) 10 1-22 capsule by it y of mg capsule 00:00: mouth [place] 00 every 8 Medical (eight) Branch hours as needed for Abdominal pain. ondansetron 2020-06 Yes [id number] 4mg Take 1 Univers 4 mg 1-22 tablet by ity of disintegrat 00:00: mouth [place] ing tablet 00 every 8 Medica l (eight) Branch hours as needed for Nausea and Vomiting (N/V). sucralfate 2020-06 Yes [id number] 1g Take 1 U nivers 1 gram 1-22 tablet by ity of tablet 00:00: mouth [place] 00 before Medical meals and Branch at bedtime. dicyclomine 2020-06 Yes [id number] 10mg Take 1 Univers (BENTYL) 10 1-22 capsule by it y of mg capsule 00:00: mouth [place] 00 every 8 Medical (eight) Branch hours as needed for Abdominal pain. ondansetron 2020-06 Yes [id number] 4mg Take 1 Univers 4 mg 1-22 tablet by ity of disintegrat 00:00: mouth [place] ing tablet 00 every 8 Medica l (eight) Branch hours as needed for Nausea and Vomiting (N/V). sucralfate 2020-06 Yes [id number] 1g Take 1 U nivers 1 gram 1-22 tablet by ity of tablet 00:00: mouth [place] 00 before Medical meals and Branch at bedtime. dicyclomine 2020-06 Yes [id number] 10mg Take 1 Univers (BENTYL) 10 1-22 capsule by it y of mg capsule 00:00: mouth [place] 00 every 8 Medical (eight) Branch hours as needed for Abdominal pain. ondansetron 2020-06 Yes [id number] 4mg Take 1 Univers 4 mg 1-22 tablet by ity of disintegrat 00:00: mouth [place] ing tablet 00 every 8 Medica l (eight) Branch hours as needed for Nausea and Vomiting (N/V). sucralfate 2020-06 Yes [id number] 1g Take 1 U nivers 1 gram 1-22 tablet by ity of tablet 00:00: mouth [place] 00 before Medical meals and Branch at bedtime. sucralfate 2020-06 Yes [id number] 1g Take 1 U nivers 1 gram 1-22 tablet by ity of tablet 00:00: mouth [place] 00 before Medical meals and Branch at bedtime. dicyclomine 2020-06 Yes [id number] 10mg Take 1 Univers (BENTYL) 10 1-22 capsule by it y of mg capsule 00:00: mouth [place] 00 every 8 Medical (eight) Branch hours as needed for Abdominal pain. ondansetron 2020-06 Yes [id number] 4mg Take 1 Univers 4 mg 1-22 tablet by ity of disintegrat 00:00: mouth [place] ing tablet 00 every 8 Medica l (eight) Branch hours as needed for Nausea and Vomiting (N/V). dicyclomine 2020-06 Yes [id number] 10mg Take 1 Univers (BENTYL) 10 1-22 capsule by it y of mg capsule 00:00: mouth [place] 00 every 8 Medical (eight) Branch hours as needed for Abdominal pain. sucralfate 2020-06 Yes [id number] 1g Take 1 U nivers 1 gram 1-22 tablet by ity of tablet 00:00: mouth [place] 00 before Medical meals and Branch at bedtime. dicyclomine 2020-06 Yes [id number] 10mg Take 1 Univers (BENTYL) 10 1-22 capsule by it y of mg capsule 00:00: mouth [place] 00 every 8 Medical (eight) Branch hours as needed for Abdominal pain. ondansetron 2020-06 Yes [id number] 4mg Take 1 Univers 4 mg 1-22 tablet by ity of disintegrat 00:00: mouth [place] ing tablet 00 every 8 Medica l (eight) Branch hours as needed for Nausea and Vomiting (N/V). ondansetron 2020-06 Yes [id number] 4mg Take 1 Univers 4 mg 1-22 tablet by ity of disintegrat 00:00: mouth [place] ing tablet 00 every 8 Medica l (eight) Branch hours as needed for Nausea and Vomiting (N/V). sucralfate 2020-06 Yes [id number] 1g Take 1 U nivers 1 gram 1-22 tablet by ity of tablet 00:00: mouth [place] 00 before Medical meals and Branch at bedtime. dicyclomine 2020-06 Yes [id number] 10mg Take 1 Univers (BENTYL) 10 1-22 capsule by it y of mg capsule 00:00: mouth [place] 00 every 8 Medical (eight) Branch hours as needed for Abdominal pain. ondansetron 2020-06 Yes [id number] 4mg Take 1 Univers 4 mg 1-22 tablet by ity of disintegrat 00:00: mouth [place] ing tablet 00 every 8 Medica l (eight) Branch hours as needed for Nausea and Vomiting (N/V). sucralfate 2020-06 Yes [id number] 1g Take 1 U nivers 1 gram 1-22 tablet by ity of tablet 00:00: mouth [place] 00 before Medical meals and Branch at bedtime. dicyclomine 2020-06 Yes [id number] 10mg Take 1 Univers (BENTYL) 10 1-22 capsule by it y of mg capsule 00:00: mouth [place] 00 every 8 Medical (eight) Branch hours as needed for Abdominal pain. ondansetron 2020-06 Yes [id number] 4mg Take 1 Univers 4 mg 1-22 tablet by ity of disintegrat 00:00: mouth [place] ing tablet 00 every 8 Medica l (eight) Branch hours as needed for Nausea and Vomiting (N/V). sucralfate 2020-06 Yes [id number] 1g Take 1 U nivers 1 gram 1-22 tablet by ity of tablet 00:00: mouth [place] 00 before Medical meals and Branch at bedtime. dicyclomine 2020-06 Yes [id number] 10mg Take 1 Univers (BENTYL) 10 1-22 capsule by it y of mg capsule 00:00: mouth [place] 00 every 8 Medical (eight) Branch hours as needed for Abdominal pain. ondansetron 2020-06 Yes [id number] 4mg Take 1 Univers 4 mg 1-22 tablet by ity of disintegrat 00:00: mouth [place] ing tablet 00 every 8 Medica l (eight) Branch hours as needed for Nausea and Vomiting (N/V). sucralfate 2020-06 Yes [id number] 1g Take 1 U nivers 1 gram 1-22 tablet by ity of tablet 00:00: mouth [place] 00 before Medical meals and Branch at bedtime. dicyclomine 2020-06 Yes [id number] 10mg Take 1 Univers (BENTYL) 10 1-22 capsule by it y of mg capsule 00:00: mouth [place] 00 every 8 Medical (eight) Branch hours as needed for Abdominal pain. ondansetron 2020-06 Yes [id number] 4mg Take 1 Univers 4 mg 1-22 tablet by ity of disintegrat 00:00: mouth [place] ing tablet 00 every 8 Medica l (eight) Branch hours as needed for Nausea and Vomiting (N/V). sucralfate 2020-06 Yes [id number] 1g Take 1 U nivers 1 gram 1-22 tablet by ity of tablet 00:00: mouth [place] 00 before Medical meals and Branch at bedtime. dicyclomine 2020-06 Yes [id number] 10mg Take 1 Univers (BENTYL) 10 1-22 capsule by it y of mg capsule 00:00: mouth [place] 00 every 8 Medical (eight) Branch hours as needed for Abdominal pain. ondansetron 2020-06 Yes [id number] 4mg Take 1 Univers 4 mg 1-22 tablet by ity of disintegrat 00:00: mouth [place] ing tablet 00 every 8 Medica l (eight) Branch hours as needed for Nausea and Vomiting (N/V). sucralfate 2020-06 Yes [id number] 1g Take 1 U nivers 1 gram 1-22 tablet by ity of tablet 00:00: mouth [place] 00 before Medical meals and Branch at bedtime. dicyclomine 2020-06 Yes [id number] 10mg Take 1 Univers (BENTYL) 10 1-22 capsule by it y of mg capsule 00:00: mouth [place] 00 every 8 Medical (eight) Branch hours as needed for Abdominal pain. ondansetron 2020-06 Yes [id number] 4mg Take 1 Univers 4 mg 1-22 tablet by ity of disintegrat 00:00: mouth [place] ing tablet 00 every 8 Medica l (eight) Branch hours as needed for Nausea and Vomiting (N/V). sucralfate 2020-06 Yes [id number] 1g Take 1 U nivers 1 gram 1-22 tablet by ity of tablet 00:00: mouth [place] 00 before Medical meals and Branch at bedtime. dicyclomine 2020-06 Yes [id number] 10mg Take 1 Univers (BENTYL) 10 1-22 capsule by it y of mg capsule 00:00: mouth [place] 00 every 8 Medical (eight) Branch hours as needed for Abdominal pain. ondansetron 2020-06 Yes [id number] 4mg Take 1 Univers 4 mg 1-22 tablet by ity of disintegrat 00:00: mouth [place] ing tablet 00 every 8 Medica l (eight) Branch hours as needed for Nausea and Vomiting (N/V). omeprazole 2020-06 No [id number] 20mg Take 1 Univers 20 mg 1-22 12-23 capsule by ity of capsule 00:00: 05:59 mouth [place] 00 :00 daily for Medical 30 days. Branch nystatin 2019-0 Yes [id number] Take 5 mL Univers 100,000 1-25 by mouth 4 ity of unit/mL 00:00: (four) [place] suspension 00 times Medical daily. Branch ondansetron 2019-0 Yes [id number] 4mg Take 1 Univers 4 mg tablet 1-25 tablet by ity of 00:00: mouth [place] 00 every 8 Medical (eight) Branch hours as needed for Nausea and Vomiting (N/V). nystatin 2019-0 Yes [id number] Take 5 mL Univers 100,000 1-25 by mouth 4 ity of unit/mL 00:00: (four) [place] suspension 00 times Medical daily. Branch ondansetron 2019-0 Yes [id number] 4mg Take 1 Univers 4 mg tablet 1-25 tablet by ity of 00:00: mouth [place] 00 every 8 Medical (eight) Branch hours as needed for Nausea and Vomiting (N/V). nystatin 2019-0 Yes [id number] Take 5 mL Univers 100,000 1-25 by mouth 4 ity of unit/mL 00:00: (four) [place] suspension 00 times Medical daily. Branch ondansetron 2019-0 Yes [id number] 4mg Take 1 Univers 4 mg tablet 1-25 tablet by ity of 00:00: mouth [place] 00 every 8 Medical (eight) Branch hours as needed for Nausea and Vomiting (N/V). nystatin 2019-0 Yes [id number] Take 5 mL Univers 100,000 1-25 by mouth 4 ity of unit/mL 00:00: (four) [place] suspension 00 times Medical daily. Branch ondansetron 2019-0 Yes [id number] 4mg Take 1 Univers 4 mg tablet 1-25 tablet by ity of 00:00: mouth [place] 00 every 8 Medical (eight) Branch hours as needed for Nausea and Vomiting (N/V). nystatin 2019-0 Yes [id number] Take 5 mL Univers 100,000 1-25 by mouth 4 ity of unit/mL 00:00: (four) [place] suspension 00 times Medical daily. Branch ondansetron 2019-0 Yes [id number] 4mg Take 1 Univers 4 mg tablet 1-25 tablet by ity of 00:00: mouth [place] 00 every 8 Medical (eight) Branch hours as needed for Nausea and Vomiting (N/V). nystatin 2019-0 Yes [id number] Take 5 mL Univers 100,000 1-25 by mouth 4 ity of unit/mL 00:00: (four) [place] suspension 00 times Medical daily. Branch ondansetron 2019-0 Yes [id number] 4mg Take 1 Univers 4 mg tablet 1-25 tablet by ity of 00:00: mouth [place] 00 every 8 Medical (eight) Branch hours as needed for Nausea and Vomiting (N/V). nystatin 2019-0 Yes [id number] Take 5 mL Univers 100,000 1-25 by mouth 4 ity of unit/mL 00:00: (four) [place] suspension 00 times Medical daily. Branch ondansetron 2019-0 Yes [id number] 4mg Take 1 Univers 4 mg tablet 1-25 tablet by ity of 00:00: mouth [place] 00 every 8 Medical (eight) Branch hours as needed for Nausea and Vomiting (N/V). nystatin 2019-0 Yes [id number] Take 5 mL Univers 100,000 1-25 by mouth 4 ity of unit/mL 00:00: (four) [place] suspension 00 times Medical daily. Branch ondansetron 2019-0 Yes [id number] 4mg Take 1 Univers 4 mg tablet 1-25 tablet by ity of 00:00: mouth [place] 00 every 8 Medical (eight) Branch hours as needed for Nausea and Vomiting (N/V). nystatin 2019-0 Yes [id number] Take 5 mL Univers 100,000 1-25 by mouth 4 ity of unit/mL 00:00: (four) [place] suspension 00 times Medical daily. Branch nystatin 2019-0 Yes [id number] Take 5 mL Univers 100,000 1-25 by mouth 4 ity of unit/mL 00:00: (four) [place] suspension 00 times Medical daily. Branch ondansetron 2019-0 Yes [id number] 4mg Take 1 Univers 4 mg tablet 1-25 tablet by ity of 00:00: mouth [place] 00 every 8 Medical (eight) Branch hours as needed for Nausea and Vomiting (N/V). ondansetron 2019-0 Yes [id number] 4mg Take 1 Univers 4 mg tablet 1-25 tablet by ity of 00:00: mouth [place] 00 every 8 Medical (eight) Branch hours as needed for Nausea and Vomiting (N/V). nystatin 2019-0 Yes [id number] Take 5 mL Univers 100,000 1-25 by mouth 4 ity of unit/mL 00:00: (four) [place] suspension 00 times Medical daily. Branch ondansetron 2019-0 Yes [id number] 4mg Take 1 Univers 4 mg tablet 1-25 tablet by ity of 00:00: mouth [place] 00 every 8 Medical (eight) Branch hours as needed for Nausea and Vomiting (N/V). nystatin 2019-0 Yes [id number] Take 5 mL Univers 100,000 1-25 by mouth 4 ity of unit/mL 00:00: (four) [place] suspension 00 times Medical daily. Branch ondansetron 2019-0 Yes [id number] 4mg Take 1 Univers 4 mg tablet 1-25 tablet by ity of 00:00: mouth [place] 00 every 8 Medical (eight) Branch hours as needed for Nausea and Vomiting (N/V). nystatin 2019-0 Yes [id number] Take 5 mL Univers 100,000 1-25 by mouth 4 ity of unit/mL 00:00: (four) [place] suspension 00 times Medical daily. Branch ondansetron 2019-0 Yes [id number] 4mg Take 1 Univers 4 mg tablet 1-25 tablet by ity of 00:00: mouth [place] 00 every 8 Medical (eight) Branch hours as needed for Nausea and Vomiting (N/V). nystatin 2019-0 Yes [id number] Take 5 mL Univers 100,000 1-25 by mouth 4 ity of unit/mL 00:00: (four) [place] suspension 00 times Medical daily. Branch ondansetron 2019-0 Yes [id number] 4mg Take 1 Univers 4 mg tablet 1-25 tablet by ity of 00:00: mouth [place] 00 every 8 Medical (eight) Branch hours as needed for Nausea and Vomiting (N/V). nystatin 2019-0 Yes [id number] Take 5 mL Univers 100,000 1-25 by mouth 4 ity of unit/mL 00:00: (four) [place] suspension 00 times Medical daily. Branch ondansetron 2019-0 Yes [id number] 4mg Take 1 Univers 4 mg tablet 1-25 tablet by ity of 00:00: mouth [place] 00 every 8 Medical (eight) Branch hours as needed for Nausea and Vomiting (N/V). nystatin 2019-0 Yes [id number] Take 5 mL [facility] 100,000 1-25 by mouth 4 ity of unit/mL 00:00: (four) [place] suspension 00 times Medical daily. Branch ondansetron 2019-0 Yes [id number] 4mg Take 1 Univers 4 mg tablet 1-25 tablet by ity of 00:00: mouth [place] 00 every 8 Medical (eight) Branch hours as needed for Nausea and Vomiting (N/V). nystatin 2019-0 Yes [id number] Take 5 mL [facility] 100,000 1-25 by mouth 4 ity of unit/mL 00:00: (four) [place] suspension 00 times Medical daily. Branch ondansetron 2019-0 Yes [id number] 4mg Take 1 Univers 4 mg tablet 1-25 tablet by ity of 00:00: mouth [place] 00 every 8 Medical (eight) Branch hours as needed for Nausea and Vomiting (N/V). nystatin 2019-0 Yes [id number] Take 5 mL [facility] 100,000 1-25 by mouth 4 ity of unit/mL 00:00: (four) [place] suspension 00 times Medical daily. Branch ondansetron 2019-0 Yes [id number] 4mg Take 1 [facility] 4 mg tablet 1-25 tablet by ity of 00:00: mouth [place] 00 every 8 Medical (eight) Branch hours as needed for Nausea and Vomiting (N/V). nystatin 2019-0 Yes [id number] Take 5 mL [facility] 100,000 1-25 by mouth 4 ity of unit/mL 00:00: (four) [place] suspension 00 times Medical daily. Branch ondansetron 2018-0 Yes [id number] 4mg Take 1 [facility] 4 mg tablet 1-25 tablet by ity of 00:00: mouth [place] 00 every 8 Medical (eight) Branch hours as needed for Nausea and Vomiting (N/V). Omeprazole 2017-06 No 40 mg, PO, M emoria 0-11 Daily, 0 l 15:33: Refill(s) Dicyclomine 2017-06 No 20 mg, PO, Memoria 0-11 Q6H, 0 l 15:33: Refill(s) [place] 00 ondansetron 2017-06 No 4 mg = 1 Me moria 4 mg oral 0-11 tab, PO, l tablet 15:33: Q12H, 0 Cal 00 Refill(s) Famotidine 2017-06 No 20 mg = 1 Me moria 0-11 tab, PO, l 15:33: Q12H, 0 [place] 00 Refill(s) Ciprofloxac 2017-06 No 500 mg, Mem oria in 0-11 PO, Q12H, l 15:33: 0 [place] 00 Refill(s) hydrOXYzine 2017-06 No 25 mg, [...] 0-11 tab, PO, l 15:33: Q12H, 0 [place] 00 Refill(s) Ciprofloxac 2017-06 No 500 mg, Mem oria in 0-11 PO, Q12H, l 15:33: 0 Cal 00 Refill(s) hydrOXYzine 2017-06 No 25 mg, PO, Memoria hydrochlori 0-11 Q6H, 0 l de 15:33: Refill(s) Metronidazo 2017-06 No 500 mg = 1 Memoria le 0-11 tab, PO, l 15:33: Q6H, 0 [place] 00 Refill(s) Omeprazole 2017-06 No 40 mg, PO, M emoria 0-11 Daily, 0 l 15:33: Refill(s) Dicyclomine 2017-06 No 20 mg, PO, Memoria 0-11 Q6H, 0 l 15:33: Refill(s) ondansetron 2017-06 No 4 mg = 1 Me moria 4 mg oral 0-11 tab, PO, l tablet 15:33: Q12H, 0 Cal Refill(s) Famotidine 2017-06 No 20 mg = [...] 0-11 tab, PO, l 15:33: Q6H, 0 [place] 00 Refill(s) Omeprazole 2017-06 No 40 mg, PO, M emoria 0-11 Daily, 0 l 15:33: Refill(s) Dicyclomine 2017-06 No 20 mg, PO, Memoria 0-11 Q6H, 0 l 15:33: Refill(s) ondansetron 2017-06 No 4 mg = 1 Me moria 4 mg oral 0-11 tab, PO, l tablet 15:33: Q12H, 0 [place] 00 Refill(s) Famotidine 2017-06 No 20 mg = 1 Me moria 0-11 tab, PO, l 15:33: Q12H, 0 [place] 00 Refill(s) Ciprofloxac 2017-06 No 500 mg, Mem oria in 0-11 PO, Q12H, l 15:33: 0 [place] 00 Refill(s) Metronidazo 2017-06 No 500 mg = 1 Memoria le 0-11 tab, PO, l 15:33: Q6H, 0 [place] 00 Refill(s) Omeprazole 2017-06 No 40 mg, PO, M emoria 0-11 Daily, 0 l 15:33: Refill(s) Dicyclomine 2017-06 No 20 mg, PO, Memoria 0-11 Q6H, 0 l 15:33: Refill(s) ondansetron 2017-06 No 4 mg = 1 Me moria 4 mg oral 0-11 tab, PO, l tablet 15:33: Q12H, 0 [place] Refill(s) Famotidine 2017-06 No 20 mg = 1 Me moria 0-11 tab, PO, l 15:33: Q12H, 0 [place] 00 Refill(s) Ciprofloxac 2017-06 No 500 mg, Mem oria in 0-11 PO, Q12H, l 15:33: 0 [place] 00 Refill(s) hydrOXYzine 2017-06 No 25 mg, PO, Memoria hydrochlori 0-11 Q6H, 0 l de 15:33: Refill(s) hydrOXYzine 2017-06 No 25 mg, PO, [...] tab, PO, l tablet 15:33: Q12H, 0 [place] 00 Refill(s) Famotidine 2017-06 No 20 mg [...] 0-11 tab, PO, l 15:33: Q6H, 0 [place] 00 Refill(s) Omeprazole 2017-06 No 40 mg, [...] 0-11 tab, PO, l 15:33: Q12H, 0 [place] 00 Refill(s) Ciprofloxac 2017-06 No 500 mg, [...] tab, PO, l tablet 15:33: Q12H, 0 [place] 00 Refill(s) Famotidine 2017-06 No 20 mg = 1 Me moria 0-11 tab, PO, l 15:33: Q12H, 0 [place] 00 Refill(s) Ciprofloxac 2017-06 No 500 mg, Mem oria in 0-11 PO, Q12H, l 15:33: 0 [place] 00 Refill(s) hydrOXYzine 2018-1 No 25 mg, PO, Memoria hydrochlori 0-11 Q6H, 0 l de 15:33: Refill(s) [place] 00 Metronidazo 2017-06 No 500 mg = 1 Memoria le 0-11 tab, PO, l 15:33: Q6H, 0 [place] 00 Refill(s) omeprazole 2017-06- No Univer s 40 mg 0-05 11-22 ity of capsule 00:00: 00:00 [place] 00 :00 Medical Branch hydrocortis 2018-0 Yes 25mg Insert 1 Un nelida one 8-24 Suppositor ity of (ANUSOL-HC) 00:[place] 25 mg 00 rectum 2 Medical suppository (two) Branch times daily. hydrocortis 2018-0 Yes 25mg Insert 1 Un [place] one 8-24 Suppositor ity of (ANUSOL-HC) 00:[place] 25 mg 00 rectum 2 Medical suppository (two) Branch times daily. hydrocortis 2018-0 Yes 25mg Insert 1 Un [place] one 8-24 Suppositor ity of (ANUSOL-HC) 00:[place] 25 mg 00 rectum 2 Medical suppository (two) Branch times daily. hydrocortis 2018-0 Yes 25mg Insert 1 Un [place] one 8-24 Suppositor ity of (ANUSOL-HC) 00:[place] 25 mg 00 rectum 2 Medical suppository (two) Branch times daily. hydrocortis 2018-0 Yes 25mg Insert 1 Un [place] one 8-24 Suppositor ity of (ANUSOL-HC) 00:[place] 25 mg 00 rectum 2 Medical suppository (two) Branch times daily. hydrocortis 2018-0 Yes 25mg Insert 1 Un [place] one 8-24 Suppositor ity of (ANUSOL-HC) 00:00[place] 25 mg 00 rectum 2 Medical suppository (two) Branch times daily. hydrocortis 2018-0 Yes 25mg Insert 1 Un [place] one 8-24 Suppositor ity of (ANUSOL-HC) 00:00: [place] 25 mg 00 rectum 2 Medical suppository (two) Branch times daily. hydrocortis 2018-0 Yes 25mg Insert 1 Un [place] one 8-24 Suppositor ity of (ANUSOL-HC) 00:00: [place] 25 mg 00 rectum 2 Medical suppository (two) Branch times daily. hydrocortis 2018-0 Yes 25mg Insert 1 Un [place] one 8-24 Suppositor ity of (ANUSOL-HC) 00:00: [place] 25 mg 00 rectum 2 Medical suppository (two) Branch times daily. hydrocortis 2018-0 Yes 25mg Insert 1 Un [place] one 8-24 Suppositor ity of (ANUSOL-HC) 00:00: [place] 25 mg 00 rectum 2 Medical suppository (two) Branch times daily. hydrocortis 2018-0 Yes 25mg Insert 1 Un [place] one 8-24 Suppositor ity of (ANUSOL-HC) 00:00: [place] 25 mg 00 rectum 2 Medical suppository (two) Branch times daily. hydrocortis 2018-0 Yes 25mg Insert 1 Un [place] one 8-24 Suppositor ity of (ANUSOL-HC) 00:00: [place] 25 mg 00 rectum 2 Medical suppository (two) Branch times daily. hydrocortis 2018-0 Yes 25mg Insert 1 Un [place] one 8-24 Suppositor ity of (ANUSOL-HC) 00:00: [place] 25 mg 00 rectum 2 Medical suppository (two) Branch times daily. hydrocortis 2018-0 Yes 25mg Insert 1 Un [place] one 8-24 Suppositor ity of (ANUSOL-HC) 00:00: y [place] 25 mg 00 rectum 2 Medical suppository (two) Branch times daily. hydrocortis 2018-0 Yes 25mg Insert 1 Un [place] one 8-24 Suppositor ity of (ANUSOL-HC) 00:00: y [place] 25 mg 00 rectum 2 Medical suppository (two) Branch times daily. hydrocortis 2018-0 Yes 25mg Insert 1 Un [place] one 8-24 Suppositor ity of (ANUSOL-HC) 00:00: [place] 25 mg 00 rectum 2 Medical suppository (two) Branch times daily. hydrocortis 2018-0 Yes 25mg Insert 1 Un [place] one 8-24 Suppositor ity of (ANUSOL-HC) 00:00: y [place] 25 mg 00 rectum 2 Medical suppository (two) Branch times daily. hydrocortis Yes 25mg Insert 1 Un [place] one 8-24 Suppositor ity of (ANUSOL-HC) 00:00: y [place] 25 mg 00 rectum 2 Medical suppository (two) Branch times daily. hydrocortis Yes 25mg Insert 1 Un [place] one 8-24 Suppositor ity of (ANUSOL-HC) 00:00: [place] 25 mg 00 rectum 2 Medical suppository (two) Branch times daily. CALCIUM Yes Take by Univers CARBONATE 3-02 mouth. ity of (CALCIUM 14:20: [place] 500 ORAL) 36 [facility] Branch CALCIUM Yes Take by Univers CARBONATE 3-02 mouth. ity of (CALCIUM 14:20: [place] 500 ORAL) 36 [facility] Immunizations Ordered Filled Immunization Date Status Comments [facility] e Immunization Name Name TD 2022-07-19 Completed University of 00:00:00 [facility] Influenza Virus 2022-07-19 Completed Universit y of Vaccine Quad IM, 00:00:00 [facility] dical Preserv and ABX Branch Free 6 MO-64 YRS TDAP 2022-07-19 Completed University of 00:00:00 [facility] Influenza Virus 2022-07-19 Completed Universit y of Vaccine Quad IM, 00:00:00 [facility] dical Preserv and ABX Branch Free 6 MO-64 YRS TDAP 2022-07-19 Completed University of 00:00:00 [facility] Influenza Virus 2022-07-19 Completed Universit y of Vaccine Quad IM, 00:00:00 [facility] dical Preserv and ABX Branch Free 6 MO-64 YRS TDAP 2022-07-19 Completed University of 00:00:00 [facility] Influenza Virus 2022-07-19 Completed Universit y of Vaccine Quad IM, 00:00:00 [facility] dical Preserv and ABX Branch Free 6 MO-64 YRS TDAP 2022-07-19 Completed University of 00:00:00 [facility] Influenza Virus 2022-07-19 Completed Universit y of Vaccine Quad IM, 00:00:00 [place] Me dical Preserv and ABX Branch Free 6 MO-64 YRS TDAP 2022-07-19 Completed University of 00:00:00 [facility] Influenza Virus 2022-07-19 Completed Universit y of Vaccine Quad IM, 00:00:00 [place] Me dical Preserv and ABX Branch Free 6 MO-64 YRS TDAP 2022-07-19 Completed University of 00:00:00 [facility] Influenza Virus 2022-07-19 Completed Universit y of Vaccine Quad IM, 00:00:00 [place] Me dical Preserv and ABX Branch Free 6 MO-64 YRS TDAP 2022-07-19 Completed University of 00:00:00 [facility] Influenza Virus 2022-07-19 Completed Universit y of Vaccine Quad IM, 00:00:00 [facility] dical Preserv and ABX Branch Free 6 MO-64 YRS TDAP 2022-07-19 Completed University of 00:00:00 [facility] Influenza Virus 2022-07-19 Completed Universit y of Vaccine Quad IM, 00:00:00 [place] Me dical Preserv and ABX Branch Free 6 MO-64 YRS TDAP 2022-07-19 Completed University of 00:00:00 [facility] Influenza Virus 2022-07-19 Completed Universit y of Vaccine Quad IM, 00:00:00 [facility] dical Preserv and ABX Branch Free 6 MO-64 YRS TDAP 2022-07-19 Completed University of 00:00:00 [facility] Influenza Virus 2022-07-19 Completed Universit y of Vaccine Quad IM, 00:00:00 [place] Me dical Preserv and ABX Branch Free 6 MO-64 YRS TDAP 2022-07-19 Completed University of 00:00:00 [facility] Influenza Virus 2022-07-19 Completed Universit y of Vaccine Quad IM, 00:00:00 [place] Me dical Preserv and ABX Branch Free 6 MO-64 YRS TDAP 2022-07-19 Completed University of 00:00:00 [facility] Influenza Virus 2022-07-19 Completed Universit y of Vaccine Quad IM, 00:00:00 [place] Me dical Preserv and ABX Branch Free 6 MO-64 YRS TDAP 2022-07-19 Completed University of 00:00:00 [facility] Influenza Virus 2022-07-19 Completed Universit y of Vaccine Quad IM, 00:00:00 [place] Me dical Preserv and ABX Branch Free 6 MO-64 YRS TDAP 2022-07-19 Completed University of 00:00:00 [facility] Influenza Virus 2022-07-19 Completed Universit y of Vaccine Quad IM, 00:00:00 [place] Me dical Preserv and ABX Branch Free 6 MO-64 YRS TDAP 2022-07-19 Completed University of 00:00:00 [facility] Influenza Virus 2022-07-19 Completed Universit y of Vaccine Quad IM, 00:00:00 [place] Me dical Preserv and ABX Branch Free 6 MO-64 YRS Vital Signs Vital Name Observation Time Observation Value Comments Source Systolic blood 2022-08-09 13:52:00 116 mm[Hg] Univer sity of [facility] Diastolic blood 2022-08-09 13:52:00 76 mm[Hg] Unive rsity of [facility] Heart rate 2022-08-09 13:52:00 62 /min Universi ty [facility] Body temperature 2022-08-09 13:52:00 36.44 [facility] Body height 2022-08-09 13:52:00 180.3 cm [facility] Body weight 2022-08-09 13:52:00 89.812 kg [facility] BMI 2022-08-09 13:52:00 27.62 kg/m2 [facility] Oxygen saturation in 2022-08-09 13:52:00 98 /min [facility] Arterial blood by [facility] Pulse oximetry Branch Systolic blood 2022-07-19 20:02:00 107 mm[Hg] Univer sity of pressure [facility] Diastolic blood 2022-07-19 20:02:00 67 mm[Hg] Unive rsity of pressure [facility] Heart rate 2022-07-19 20:02:00 75 /min Universi ty [facility] Body temperature 2022-07-19 20:02:00 36.89 Carol [facility] Body height 2022-07-19 20:02:00 180.3 cm [facility] Body weight 2022-07-19 20:02:00 90.81 kg [facility] BMI 2022-07-19 20:02:00 27.92 kg/m2 [facility] Oxygen saturation in 2022-07-19 20:02:00 100 /min University of Arterial blood by [facility] Pulse oximetry Branch Systolic blood 2021-04-27 17:30:43 120 mm[Hg] Univer sity of pressure [facility] Diastolic blood 2021-04-27 17:30:43 75 mm[Hg] Unive rsity of pressure [facility] Heart rate 2021-04-27 17:30:43 70 /min [facility] Body temperature 2021-04-27 17:30:43 36.78 [facility] Respiratory rate 2021-04-27 17:30:43 18 /min [facility] Oxygen saturation in 2021-04-27 17:30:43 100 /min [place] of Arterial blood by [facility] Pulse oximetry Branch Heart Rate 2018-03-16 15:31:00 [facility] Weight 2018-03-16 15:31:00 [facility] Height 2018-03-16 15:31:00 180.34 cm [facility] BMI Calculated 2018-03-16 15:31:00 Quang stevens Cal Systolic (mm Hg) 2018-03-16 15:31:00 Ming mancia [place] Diastolic (mm Hg) 2018-03-16 15:31:00 [facility] orial [place] Procedures Procedure Date / Time Performed Performing Clinician [facility] e DISCLOSURE AND 2022-08-10 06:01:00 Doctor Unassigned, No [facility] CONSENT, MEDICAL AND Name Medical [facility] SURGICAL PROCEDURES TDAP VACCINE, >11 YRS, 2022-07-19 20:16:53 Jluis Whelan [facility] Medical Branch FLU VACC ([phone]), 2022-07-19 20:16:53 Jluis Whelan [facility] 6 MO-64 YRS, .5ML, IM, Medical [place] QUAD (FLUCELVAX) ASSIGNMENT OF BENEFITS 2022-07-19 19:23:15 Doctor Unassigned, No [facility] Name Medical Branch CT ABDOMEN PELVIS W 2021-04-27 16:08:21 Bran Redi ty of [place] CONTRAST [facility] Branch LIPASE 2021-04-27 15:45:[address] [facility] COMP. METABOLIC PANEL 2021-04-27 15:45:00 [facility] ([id number]) [facility] CBC WITH DIFF 2021-04-27 15:45:[address], [facility] URINALYSIS 2021-04-27 15:45:[address] Red, [facility] NOTICE OF PRIVACY 2021-04-27 14:21:16 Doctor Unassigned, No Univ [facility] PRACTICES Name Medical Branch CONSENT/REFUSAL FOR 2021-04-27 14:20:59 [facility] AND Name [facility] TREATMENT Encounters Start End Encounter Admission Attending Care Care Encounter Source Date/Time Date/Time Type Type Clinicians Facility Department ID 2022-09-13 Outpatient R [facility] [id number] Univers 15:45:30 PIOTR ayala [facility] 2022-09-28 2022-09-28 Outpatient SFA SFA [id number] Andrew 13:29:12 13:29:12 0425 F [place] 2022-09-27 2022-09-27 Telephone [facility] [id number] Univers 00:00:00 00:00:00 Piotr CARMONA [id number] i ty of [facility] [place] [id number] [address] 2022-09-17 2022-09-17 Telephone [facility] [id number] Univers 00:00:00 00:00:00 Piotr CARMONA [id number] i ty of [place] [id number] [address] 2022-09-15 2022-09-15 Telephone Gabrielle Forman [facility] [id number] Univers 00:00:00 00:00:00 Miguel Angel CARMONA [id number] i ty of [place].2.[place].2.[place] SURGICAL [id number] [facility] [address] [place] 2022-09-13 2022-09-13 Telephone [facility] [id number] Univers 00:00:00 00:00:00 Piotr KRISTINE 350.1.13.10 i ty of [place] [id number] La dichilda NAL 188 [facility] 2022-08-10 2022-08-10 Orders Doctor PIERRE [id number] Univers 00:00:00 00:00:00 Only Unassigned, PADMINI 350.1.13.10 ity of Bessie [facility] 4.2.7.2.686 Edwar as [id number] [address] 2022-08-09 2022-08-09 Outpatient R BERNARDO [facility] [id number] Univers 08:00:00 10:23:38 PIOTR ayala [facility] 2022-08-09 2022-08-09 [facility] [id number] Univers 08:00:00 10:23:38 Visit Piotr CARMONA 350.1.13.10 i ty of [place]2.[place].2.[place] [id number] [address] 2022-07-20 2022-07-20 Telephone Tip [facility] [id number] Univers 00:00:00 00:00:00 [facility] 350.1.13.10 it y of [place] 4.2.7.2.686 Edwar as KELIN?BLEA [id number] La tej YESENIA [address] [place] MEDICAL OFFICE [facility] 2022-07-19 2022-07-19 Outpatient R TIP [facility] [id number] Univers 14:00:00 17:27:03 JLUIS ayala [facility] 2022-07-19 2022-07-19 Professional Nursing Tutor Lab, Horacio - Marc [facility] [id number] Univers 15:00:00 15:15:00 Visit Jluis Whelan 350.1.13.10 ity of [place] 4.2.7.2.686 Edwar as KELIN?BLEA [id number] La tej PATTERSON [address] [place] MEDICAL OFFICE BUILDING 2022-07-19 2022-07-19 Office Tip [facility] [id number] Univers 14:00:00 14:30:00 Visit Jluis MULLEN 350.1.13.10 it y of [place] 4.2.7.2.686 Edwar as KELIN?BLEA [id number] La tej [facility] [address] [place] MEDICAL OFFICE BUILDING 2022-07-19 2022-07-19 Orders Doctor PIERRE 1.2.840.114 [id number] Univers 00:00:00 00:00:00 Only Unassigned, PADMINI 350.1.13.10 ity of Bessie [facility] 4.2.7.2.686 Edwar as [id number] [facility] [address] [place] 2022-07-12 2022-07-12 Out[facility] [id number] Univers 13:00:00 13:00:00 JLUIS ayala [facility] 2021-04-27 2021-04-27 Emergency [facility] [id number] Univers 08:27:00 11:54:00 BRAN ayala [facility] 2021-04-27 2021-04-27 Emergency [facility] [id number] Univers 08:27:00 11:54:00 Bran CAMRONA 350.1.13.10 i ty of [place].2.7.2.[place] [id number] [facility] [address] [place] 2018-05-26 2018-05-28 Outside nullFlavo MNA [id number] Memoria 16:20:00 05:59:59 Medical r Neurology 02 l Records Charlotte [place] 2018-05-26 2018-05-28 Outside nullFlavo MNA [id number] Memoria 16:20:00 05:59:59 Medical r Neurology 02 l Records Payal Cortésann 2018-05-26 2018-05-27 Outpatient MHMISCHER MISCHER [id number] 10:20:00 23:59:59 02 2018-04-21 2018-04-21 Ambulatory nullFlavo MNA [id number] Memoria 17:15:00 17:15:00 Pre-Reg r Neurology 01 l Payal Mccall 2018-04-21 2018-04-21 Ambulatory nullFlavo MNA [id number] Memoria 17:15:00 17:15:00 Pre-Reg r Neurology 01 l Payal Mccall 2018-04-21 2018-04-21 Outpatient BAUDILIO GALO [id number] Memoria 11:15:00 11:15:00 01 miguel angel Mccall 2018-04-21 2018-04-21 [id number] 11:15:00 11:15:00 Bebeto Maury Marquis 2018-03-22 2018-03-24 Outside nullFlavo MNA [id number] Memoria 22:51:00 04:59:59 Medical r Neurology 01 l Records Payal Mccall 2018-03-22 2018-03-24 Outside nullFlavo MNA [id number] Memoria 22:51:00 04:59:59 Medical r Neurology 01 l Records Payal Mccall 2018-03-22 2018-03-24 Phone nullFlavo MNA [id number] Memoria 21:22:00 04:59:59 Message r Neurology 00 l Payal Mccall 2018-03-22 2018-03-24 Phone nullFlavo MNA [id number] Memoria 21:22:00 04:59:59 Message r Neurology 00 l Payal Mccall 2018-03-22 2018-03-23 Outpatient MHMISCHER MHMISCHER [id number] 17:51:00 23:59:59 2018-03-22 2018-03-23 Outpatient MHMISCHER MHMISCHER [id number] 16:22:00 23:59:59 00 2018-03-16 2018-03-17 Outpatient nullFlavo MNA [id number] Memoria 16:00:00 04:59:59 r Neurology 00 l Payal Mccall 2018-03-16 2018-03-17 Outpatient nullFlavo MNA [id number] Memoria 16:00:00 04:59:59 r Neurology 00 l Payal Mccall 2018-03-16 2018-03-16 Outpatient Krell, [facility] [id number] 11:00:00 23:59:59 Bebeto Marquis 2018-03-16 2018-03-16 Outpatient [facility] [id number] [facility] 11:00:00 11:00:00 00 miguel angel [place] Results Test Description Test Time Test Comments Results Result Comments Source CHLAMYDIA, NAAT, URINE 2022-09-24 18:32:30 Test Item Value Reference Range Interpretation Comme nts CHLAMYDIA, NAAT, URINE (test NEGATIVE NEGATIVE Testing is performed with Serge code = 17657) VALERIO 6800/880 0 systems usingreal-time polymerase chain reaction (PCR) method. A negative result does not exclude low level infection, spec imensampling error, or collection e rror. GONORRHEA, NAAT, [id number] 18:32:30 Test Item Value Reference Range Interpretation Comments GONORRHEA, NAAT, NEGATIVE NEGATIVE Testing is performed with URINE (test code Serge VALERIO 6800/8800 = 31295) systems usingre al-time polymerase koko n reaction (PCR) method. A negative result does not exclude low level infection , specimensamplin g error, or collection erro r. HERPES SIMPLEX AB, [id number] 13:53:23 Test Item Value Reference Range Interpretation Comments HERPES SIMPLEX AB, 0.54 INDEX SEE BELOW INTERPRE TATION UNITS IgM (test code = RANGE ----- --------- 39572) ----- ----- NEG ATIVE INDEX <=0.89 EQ UIVOCAL INDEX 0.90-1.09 POSITIVE INDEX >=1.10 HERPES SIMPLEX 1/2 AB, IgG [id number] 07:01:13 Test Item Value Reference Range Interpretation Comments HERPES SIMPLEX 1 7.520 INDEX SEE BELOW H INTERPRETA TION UNITS AB, IgG (test code RANGE --- = 28707) ----- ----- NON -REACTIVE INDEX <1.000 RE ACTIVE INDEX >=1.00 0 HERPES SIMPLEX 2 0.076 INDEX SEE BELOW INTERPRETA TION UNITS AB, IgG (test code RANGE --- = 31764) ----- ----- NON -REACTIVE INDEX <1.000 RE ACTIVE INDEX >=1.000 [facility] has important p athology staff changes e ffective 08/04/2022. New pathology staff will provide uninter rupted, excellent patie nt care and clinical consultation. S ee URL: [email or web address] UNLESS OTHERWISE INDICATED, ALL [facility] [employer], [facility]. [address] [place] [address] 4 LABORATORY DIRE CTOR: SHIELA RICE M.D. [place] NUMBER [id number] [place] [id number] HIV 1/2 4TH GEN, RFLX [id number] 07:01:13 Test Item Value Reference Range Interpretation Comments HIV 1/2 4TH GEN, RFLX CONF (test NON-REACTIVE NON-REACTIVE code = 3514) HEPATITIS PANEL, [id number] 07:01:13 Test Item Value Reference Range Interpretation Comments HEPATITIS A IgM (test NON-REACTIVE NON-REACTIVE code = 87996) HEPATITIS B CORE IgM NON-REACTIVE NON-REACTIVE (test code = 4644) HEPATITIS B SURF AG NON-REACTIVE NON-REACTIVE (test code = 2739) HEPATITIS C ANTIBODY NON-REACTIVE NON-REACTIVE (test code = 4675) INTERPRETATION (NOTE) Hepatitis A HEPATITIS A: (test code sero logy shows no = 2552) evidence of acu te hepatitis A. INTERPRETATION (NOTE) Hepatitis B HEPATITIS B: (test code sero logy shows no = 80986) evidence of acu te hepatitis B and no indication of exposure to hepatitis B vir us in the previous alex eight months. INTERPRETATION (NOTE) Hepatitis C HEPATITIS C: (test code sero logy shows no = 46838) evidence of exposure to hepatitisC viru s at this time. I t can take up to 12 months after exposure tothe hepatitis C vir us for antibodies to become detectab le in the blood in certain patient s. RPR REFLEX TO T. PALLIDUM - [id number] 04:35:14 Test Item Value Reference Range Interpretation Comments RPR (test code = 72717) NON-REACTIVE NON-REACTIVE RPR TITER (test code = 3500) NOT INDIC. TITER NOT INDIC. CBC WITH [id number] 16:21:34 Test Item Value Reference Range Interpretation Comments WBC (test code = See_Comment [Automated 6690-2) message] The sy stem which generated this result transmitted reference range : 4.20 - 10.70 10*3/?L. The reference range was not used to interpret this result as normal/abnormal . RBC (test code = See_Comment [Automated 789-8) message] The sy stem which generated this result transmitted reference range : 4.26 - 5.52 10*6/?L. The reference range was not used to interpret this result as normal/abnormal . HGB (test code = 14.8 g/dL 12.2-16.4 718-7) HCT (test code = 42.9 % 38.4-49.3 4544-3) MCV (test code = 87.2 fL 81.7-95.6 787-2) MCH (test code = 30.1 pg 26.1-32.7 785-6) MCHC (test code = 34.5 g/dL 31.2-35.0 786-4) RDW-SD (test code = 39.9 fL 38.5-51.6 78965-6) RDW-CV (test code = 12.4 % 12.1-15.4 788-0) PLT (test code = See_Comment L [Automated 777-3) message] The sy stem which generated this result transmitted reference range : 150 - 328 10*3/ ?L. The reference r elizabeth was not used to interpret this result as normal/abnormal . MPV (test code = 10.6 fL 9.8-13.0 35422-7) IPF % (test code = 3.9 % 1.2-10.7 Platelet count 0151417809) measured by fluorescence method. NRBC/100 WBC (test See_Comment [Automat ed code = 2090369176) message] The system which generated this result transmitted reference range : 0.0 - 10.0 /100 WBCs. The refer ence range was not u sed to interpret th is result as normal/abnormal . NRBC x10^3 (test code <0.01 See_Comment [Auto mated = 9022978089) message] The s ystem which generated this result transmitted reference range : 10*3/?L. The reference range was not used to interpret this result as normal/abnormal . GRAN MAT (NEUT) % 45.9 % (test code = 770-8) IMM GRAN % (test code 0.20 % = 3895165368) LYMPH % (test code = 41.6 % 736-9) MONO % (test code = 5.3 % 5905-5) EOS % (test code = 6.5 % 713-8) BASO % (test code = 0.5 % 706-2) GRAN MAT x10^3(ANC) 2.59 10*3/uL 1.99-6.95 (test code = 6802664242) IMM GRAN x10^3 (test <0.03 0.00-0.06 code = 8383315377) LYMPH x10^3 (test code 2.35 10*3/uL 1.09-3.23 = 731-0) MONO x10^3 (test code 0.30 10*3/uL 0.36-1.02 L = 742-7) EOS x10^3 (test code = 0.37 10*3/uL 0.06-0.53 711-2) BASO x10^3 (test code 0.03 10*3/uL 0.01-0.09 = 704-7) Lab Interpretation Abnormal (test code = 98418-5) [facility]. METABOLIC PANEL (58059)2021-04-27 16:20:53 Test Item Value Reference Range Interpretation Comments NA (test code = 138 mmol/L 135-145 8677511147) K (test code = 4.3 mmol/L 3.5-5.0 0192974204) CL (test code = 104 mmol/L 98-108 3326550464) CO2 TOTAL (test code 28 mmol/L 23-31 = 3117621222) AGAP (test code = 2-16 5860239971) BUN (test code = 10 mg/dL 7-23 9464317884) GLUCOSE (test code = 95 mg/dL 70-110 5913594685) CREATININE (test code 0.93 mg/dL 0.60-1.25 = 2178804510) TOTAL BILI (test code 1.1 mg/dL 0.1-1.1 = 7607699629) CALCIUM (test code = 9.2 mg/dL 8.6-10.6 3364335734) T PROTEIN (test code 7.3 g/dL 6.3-8.2 = 0853840548) ALBUMIN (test code = 4.2 g/dL 3.5-5.0 7064164760) ALK PHOS (test code = 55 U/L 34-122 6181805411) ALTv (test code = 21 U/L 5-50 1742-6) AST(SGOT) (test code 28 U/L 13-40 = 4069072340) eGFR (test code = mL/min/1.73m2 9298034274) ABA (test code = ABA) Association of [...] or urine or abnormalities in imaging tests). [facility] Test Item Value Reference Range Interpretation Comments LIPASE (test code = 2380922389) 58 U/L 0-220 Lab Interpretation (test code = Normal 04601-2) [facility]"
[2022-10-01] MEDS ORDERED: ONDANSETRON 4 MG/2 ML VIAL ONE (04:26)
[2022-10-01] MEDS ORDERED: NA CHLORIDE 0.9% 1,000 ML ONE (04:26)
[2022-10-01] MEDS ORDERED: NA CHLORIDE 0.9% 50 ML ONE (04:26)
[2022-10-01] MEDS ORDERED: HALOPERIDOL LACT 5 MG/ML INJ ONE (04:26)
[2022-10-01] MEDS ORDERED: LORazepam 2 MG/ML VIAL ONE (04:26)
[2022-10-01 04:50] LABS: Hematocrit 44.2 % (39.6-49.0); Lymphocytes % 41.1 % (15.3-44.8); MCV 86.2 fL (80-100); MPV 8.7 fL (7.6-11.3); RBC Red Blood Cell Count 5.13 M/uL (4.33-5.43)
[2022-10-01 04:53] LABS: Protime INR 0.96
[2022-10-01 05:17] LABS: ALT/SGPT 21 U/L (16-61); AST/SGOT 13 U/L (15-37); Albumin 4.2 g/dL (3.4-5.0); Alkaline Phosphatase 75 U/L (45-117); BUN Blood Urea Nitrogen 18 mg/dL (7-18); Bicarbonate 31 mEq/L (21-32); Bilirubin Direct 0.1 mg/dL (0-0.2); Bilirubin Total 0.5 mg/dL (0.2-1.0); Glomerular Filtration Rate 88 ml/min (=/>90); Glucose Level 100 mg/dL (74-106); Potassium 3.6 mEq/L (3.5-5.1); Sodium Level 137 mEq/L (136-145)
--- NOTE | 2022-10-01 05:23 | EDPHYS ---
Physician Documentation [facility] Name: Juan Campos Age: 46 yrs Sex: Male : 1975 Arrival Date: 10/01/2022 Time: 03:58 Bed 16 Private MD: ED Physician Bhavesh Brown HPI: 10/01 04:09 This 46 yrs old Male presents to ER via Unassigned with complaints of Psych diane Problem, Vomiting. 04:09 The patient presents to the emergency department with anxiety, over unknown diane circumstances. Onset: The symptoms/episode began/occurred just prior to arrival, this morning. Past psychiatric history: Prior diagnosis: bipolar disorder, Psychiatric medications include: none. Associated signs and symptoms: Pertinent positives; anxiety. Severity of symptoms: At their worst the symptoms were moderate in the emergency department the symptoms are unchanged. The patient has not experienced similar symptoms in the past. Historical: - Allergies: 04:14 No Known Allergies; kl - PMHx: 04:13 Bipolar disorder; ADHD; Anxiety; kl - PSHx: 04:14 hernia; Vasectomy; kl - Immunization history:: Adult Immunizations unknown, . - Family history:: not pertinent. - Social history:: Smoking status: unknown. ROS: 04:10 Constitutional: Negative for fever, chills, and weight loss, Eyes: Negative for injury, diane pain, redness, and discharge, ENT: Negative for injury, pain, and discharge, Neck: Negative for injury, pain, and swelling, Cardiovascular: Negative for chest pain, palpitations, and edema, Respiratory: Negative for shortness of breath, cough, wheezing, and pleuritic chest pain, Abdomen/GI: Negative for abdominal pain, nausea, vomiting, diarrhea, and constipation, Back: Negative for injury and pain, : Negative for injury, bleeding, discharge, and swelling, MS/Extremity: Negative for injury and deformity, Skin: Negative for injury, rash, and discoloration, Psych: Negative for depression, anxiety, suicide ideation, homicidal ideation, and hallucinations, Allergy/Immunology: Negative for hives, rash, and allergies, Endocrine: Negative for neck swelling, polydipsia, polyuria, polyphagia, and marked weight changes, Hematologic/Lymphatic: Negative for swollen nodes, abnormal bleeding, and unusual bruising. 04:10 Neuro: Positive for weakness. Exam: 04:10 Constitutional: This is a well developed, well nourished patient who is awake, alert, diane and in no acute distress. Head/Face: Normocephalic, atraumatic. Eyes: Pupils equal round and reactive to light, extra-ocular motions intact. Lids and lashes normal. Conjunctiva and sclera are non-icteric and not injected. Cornea within normal limits. Periorbital areas with no swelling, redness, or edema. ENT: Nares patent. No nasal discharge, no septal abnormalities noted. Tympanic membranes are normal and external auditory canals are clear. Oropharynx with no redness, swelling, or masses, exudates, or evidence of obstruction, uvula midline. Mucous membranes moist. Neck: Trachea midline, no thyromegaly or masses palpated, and no cervical lymphadenopathy. Supple, full range of motion without nuchal rigidity, or vertebral point tenderness. No Meningismus. Chest/axilla: Normal chest wall appearance and motion. Nontender with no deformity. No lesions are appreciated. Cardiovascular: Regular rate and rhythm with a normal S1 and S2. No gallops, murmurs, or rubs. Normal PMI, no JVD. No pulse deficits. Respiratory: Lungs have equal breath sounds bilaterally, clear to auscultation and percussion. No rales, rhonchi or wheezes noted. No increased work of breathing, no retractions or nasal flaring. Abdomen/GI: Soft, non-tender, with normal bowel sounds. No distension or tympany. No guarding or rebound. No evidence of tenderness throughout. Back: No spinal tenderness. No costovertebral tenderness. Full range of motion. Male : Normal genitalia with no discharge or lesions. Skin: Warm, dry with normal turgor. Normal color with no rashes, no lesions, and no evidence of cellulitis. MS/ Extremity: Pulses equal, no cyanosis. Neurovascular intact. Full, normal range of motion. Neuro: Awake and alert, GCS 15, oriented to person, place, time, and situation. Cranial nerves II-XII grossly intact. Motor strength 5/5 in all extremities. Sensory grossly intact. Cerebellar exam normal. Normal gait. Psych: Awake, alert, with orientation to person, place and time. Behavior, mood, and affect are within normal limits. 04:10 Neck: ROM/movement: is normal, no acute changes, Meningeal signs: are not present, Kernig's sign is negative, Brudzinski's sign is negative. 05:22 ECG was reviewed by the Attending Physician. [facility] Vital Signs: 04:09 BP 138 / 96; Pulse 74; Resp 18; Temp 98.8; Pulse Ox 100% on R/A; kl 04:42 BP 131 / 90; Pulse 67; Resp 17; Pulse Ox 96% on R/A; aa9 05:06 BP 123 / 80; Pulse 63; Resp 15; Pulse Ox 97% on R/A; aa9 05:35 BP 130 / 85; Pulse 98; Resp 17 S; Temp 98.6(O); Pulse Ox 99% ; aa9 MDM: 04:06 Patient medically screened. [facility] 04:11 Differential diagnosis: drug withdrawal. acute psychotic break, depression, psychosis diane secondary to non-compliance. Data reviewed: vital signs, nurses notes, lab test result(s), EKG, radiologic studies, plain films. Consideration of Admission/Observation Escalation of care including admission/observation considered. I considered the following discharge prescriptions or medication management in the emergency department Medications were administered in the Emergency Department. See MAR. Test considered but Not performed: Ultrasound . MRI: no mri brain. Care significantly affected by the following chronic conditions: bipolar. 10/01 04:08 Order name: Acetaminophen; Complete Time: 05:22 10/01 04:08 Order name: Basic Metabolic Panel; Complete Time: 05:22 10/01 04:08 Order name: CBC with Diff; Complete Time: 05:22 10/01 04:08 Order name: ETOH Level; Complete Time: 05:22 10/01 04:08 Order name: Hepatic Function; Complete Time: 05:22 10/01 04:08 Order name: PT-INR; Complete Time: 05:22 10/01 04:08 Order name: Ptt, Activated; Complete Time: 05:22 10/01 04:08 Order name: Salicylate; Complete Time: 05:22 [facility] 10/01 04:08 Order name: CT Head Brain wo Cont 10/01 04:08 Order name: EKG; Complete Time: 04:08 10/01 04:08 Order name: EKG - Nurse/Tech; Complete Time: 05:06 [facility] 10/01 04:08 Order name: IV Saline Lock; Complete Time: 04:26 [facility] 10/01 04:08 Order name: Labs collected and sent; Complete Time: : [facility] 10/01 04:08 Order name: Suicide Screening ([place]); Complete Time: : [facility] EC:22 Rate is 68 beats/min. Rhythm is regular. QRS [place] is Normal. AL interval is normal. QRS diane interval is normal. QT interval is normal. No Q waves. T waves are Normal. No ST changes noted. Clinical impression: NSR w/ Non-specific ST/T Changes and No evidence of ischemia. Interpreted by me. Reviewed by me. Administered Medications: 04:35 Drug: Ativan IVP 1 mg Route: IVP; Site: left antecubital; aa9 05:09 Follow up: Response: No adverse reaction; RASS: Drowsy (-1) aa9 04:41 Drug: Ondansetron IVP 4 mg Route: IVP; Site: left antecubital; aa9 05:09 Follow up: Response: No adverse reaction aa9 04:42 Drug: NS 0.9% IV 1000 ml Route: IV; Rate: 1 bolus; Site: left antecubital; aa9 05:43 Follow up: Response: No adverse reaction; IV Status: Completed infusion; IV Intake: aa9 1000ml 04:42 Drug: Haloperidol IVP 2.5 mg/50 mL 2.5 mg Route: IVP; Site: left antecubital; aa9 05:09 Follow up: Response: No adverse reaction aa9 Disposition Summary: 10/01/22 05:23 Discharge Ordered Location: Home diane Problem: new diane Symptoms: have improved diane Condition: Stable diane Diagnosis - Anxiety disorder, unspecified diane - Bipolar disorder, unspecified diane Followup: diane - With: Private Physician - When: 2 - 3 days - Reason: Recheck today's complaints, Continuance of care, Re-evaluation by your physician Followup: diane - With: - When: 2 - 3 days - Reason: Recheck today's complaints, Re-evaluation by your physician Discharge Instructions: - Discharge Summary Sheet diane - Generalized Anxiety Disorder, Adult diane - Managing Bipolar Disorder diane - Mixed Bipolar Disorder diane - Managing Anxiety, Adult diane Forms: - Medication Reconciliation Form diane - Thank You Letter diane - Antibiotic Education diane - Prescription Opioid Use diane Prescriptions: - Hydroxyzine HCl 25 mg Oral Tablet - take 1 tablet by ORAL route every 6 hours As needed; 30 tablet; Refills: 0, diane Product Selection Permitted Signatures: Dispatcher [employer] Valery Rebolledo RN RN kl Anderson, Corey, MD MD cha Avalos, Aylin, RN RN aa9 Corrections: (The following items were deleted from the chart) 04:14 04:14 PMHx: Sexually transmitted infectious disease; noreen sorto
--- NOTE | 2022-10-01 05:23 | ER ---
Nurse's Notes [facility] Name: Juan Campos Age: 46 yrs Sex: Male : 1975 Arrival Date: 10/01/2022 Time: 03:58 Bed 16 Private MD: Diagnosis: Anxiety disorder, unspecified;Bipolar disorder, unspecified Presentation: 10/01 04:09 Chief complaint: Patient states: woke up and became panicked and anxious denies kl headache or thoughts of harm. Coronavirus screen: Vaccine status: Patient reports receiving the 2nd dose of the covid vaccine. Ebola Screen: Patient negative for fever greater than or equal to 101.5 degrees Fahrenheit, and additional compatible Ebola Virus Disease symptoms. Initial Sepsis Screen: Does the patient meet any 2 criteria? No. Patient's initial sepsis screen is negative. Does the patient have a suspected source of infection? No. Patient's initial sepsis screen is negative. Risk Assessment: Do you want to hurt yourself or someone else? Patient reports no desire to harm self or others. Onset of symptoms was October 01, 2022 at 04:10. 04:09 Method Of Arrival: Ambulatory kl 04:09 Acuity: [place] 3 kl Triage Assessment: 04:10 General: Appears distressed, well groomed, well developed, Behavior is anxious, crying. kl Pain: Denies pain. Historical: - Allergies: 04:14 No Known Allergies; kl - PMHx: 04:13 Bipolar disorder; ADHD; Anxiety; kl - PSHx: 04:14 hernia; Vasectomy; kl - Immunization history:: Adult Immunizations unknown, . - Family history:: not pertinent. - Social history:: Smoking status: unknown. Screenin:41 [facility] ED Fall Risk Assessment (Adult) History of falling in the last 3 months, aa9 including since admission No falls in past 3 months (0 pts) Confusion or Disorientation No (0 pts) Intoxicated or Sedated No (0 pts) Impaired Gait No (0 pts) Mobility Assist Device Used No (0 pt) Altered Elimination No (0 pt) Score/Fall Risk Level 0 - 2 = Low Risk Oriented to surroundings, Maintained a safe environment. Abuse screen: Denies threats or abuse. Denies injuries from another. Nutritional screening: No deficits noted. Nutritional screening: No deficits noted. Tuberculosis screening: No symptoms or risk factors identified. Assessment: 04:32 Reassessment: Patient appears in no apparent distress at this time. pt denies thoughts aa9 of self harm or harming others. pt states,"I just feel like something is wrong. like everywhere." Patient denies pain at this time. Psych: 04:31 [place] Suicide Severity Screening: In the past month, have you wished you were aa9 or wished you could go to sleep and not wake up? Patient responds "No." "In the past month, have you actually had any thoughts of killing yourself?" Patient responds "no." "In your lifetime, have you ever done anything, started to do anything, or prepared to do anything to end your life?" Patient responds "no.". Subjective: Patient's mood is sad, Delusions are denied, Hallucinations are denied Having thoughts of paranoia. Objective: Patient is cooperative, using poor eye contact, Speech is normal, Affect is flat. Interventions: Patient reassessed during use of restraints. Patient is physically safe. 05:42 Pt denies substance abuse. aa9 05:42 Safety Checks: aa9 Vital Signs: 04:09 BP 138 / 96; Pulse 74; Resp 18; Temp 98.8; Pulse Ox 100% on R/A; kl 04:42 BP 131 / 90; Pulse 67; Resp 17; Pulse Ox 96% on R/A; aa9 05:06 BP 123 / 80; Pulse 63; Resp 15; Pulse Ox 97% on R/A; aa9 05:35 BP 130 / 85; Pulse 98; Resp 17 S; Temp 98.6(O); Pulse Ox 99% ; aa9 ED Course: 03:59 Patient arrived in ED. ja2 04:05 Bhavesh Brown MD is Attending Physician. diane 04:09 Sarah Juarez, DRAKE is Primary Nurse. aa9 04:10 Triage completed. kl 04:26 Acetaminophen Sent. ah1 04:26 Basic Metabolic Panel Sent. ah1 04:26 CBC with Diff Sent. ah1 04:26 ETOH Level Sent. ah1 04:26 Hepatic Function Sent. ah1 04:26 PT-INR Sent. ah1 04:26 Ptt, Activated Sent. ah1 04:26 Salicylate Sent. ah1 04:26 Inserted saline lock: 20 gauge in left antecubital area, using aseptic technique. Blood ah1 collected. 04:34 Patient has correct armband on for positive identification. Bed in low position. Side aa9 rails up X2. Client placed on continuous cardiac and pulse oximetry monitoring. NIBP monitoring applied. 04:41 CT Head Brain wo Cont In Process Unspecified. EDMS 05:23 Noah Rossi MD is Referral Physician. [facility] 05:41 No provider procedures requiring assistance completed. IV discontinued, intact, aa9 bleeding controlled, No redness/swelling at site. Pressure dressing applied. 05:42 Arm band placed on. aa9 Administered Medications: 04:35 Drug: Ativan IVP 1 mg Route: IVP; Site: left antecubital; aa9 05:09 Follow up: Response: No adverse reaction; RASS: Drowsy (-1) aa9 04:41 Drug: Ondansetron IVP 4 mg Route: IVP; Site: left antecubital; aa9 05:09 Follow up: Response: No adverse reaction aa9 04:42 Drug: NS 0.9% IV 1000 ml Route: IV; Rate: 1 bolus; Site: left antecubital; aa9 05:43 Follow up: Response: No adverse reaction; IV Status: Completed infusion; IV Intake: aa9 1000ml 04:42 Drug: Haloperidol IVP 2.5 mg/50 mL 2.5 mg Route: IVP; Site: left antecubital; aa9 05:09 Follow up: Response: No adverse reaction aa9 Medication: 05:41 VIS not applicable for this client. aa9 Intake: 05:43 IV: 1000ml; Total: 1000ml. aa9 Outcome: 05:23 Dis[address] ordered by . [facility] 05:42 Discharged to home ambulatory. aa9 05:42 Condition: stable 05:42 Discharge instructions given to patient, Instructed on discharge instructions, follow up and referral plans. Demonstrated understanding of instructions, follow-up care. 05:42 Prescriptions given X 1. aa9 05:42 Patient left the ED. aa9 Signatures: Dispatcher [employer] EDValery Da Silva, Bhavesh Sanchez RN, MD MD cha Alexander, Jessica ja2 Avalos, Aylin, RN RN aa9 Mira Garcia 1 Corrections: (The following items were deleted from the chart) 04:14 04:14 PMHx: Sexually transmitted infectious disease; kl kl
[2022-10-01 05:52] VITALS: BP 130/85; TEMP 98.6; O2SAT 99
--- NOTE | 2022-10-02 15:21 | EKG ---
Test Date: 2022-10-01 Test Time: 04:40:12 [employer] Water: JOHN MEASUREMENT RESULTS: Intervals: Rate: 68 [place]: 152 QRSD: 106 QT: 390 QTc: 414 [place]: P: 60 [place]: 152 QRS: 58 T: 45 INTERPRETIVE STATEMENTS: Normal sinus rhythm Normal ECG Compared to ECG 04/28/2022 04:41:15 No significant changes Electronically Signed On 10-02-22 15:21:15 CDT by Mickey Doan
--- NOTE | 2022-10-02 15:45 | RAD REPORT ---
EXAM DESCRIPTION: CT - Head Brain Wo Cont - 10/01/2022 6:32 am CLINICAL HISTORY: Male, 46 years old, HEADACHE COMPARISON: None. TECHNIQUE: CT acquisition of the head without contrast. Coronal and sagittal reformatted images prov ided. This exam was performed according to departmental dose-optimization program which includes auto mated exposure control, adjustment of the mA and/or kV according to patient size, and/or use of itera tive reconstruction technique. FINDINGS: No intracranial hemorrhage or extraaxial fluid collection. No mass effect or midline shift. Ventricles, cisterns, and sulci are normal in size and configuration. Brain parenchymal attenuation and nava-white matter differentiation are within normal limits. The calvarium and imaged facial bones are intact. Overlying soft tissues are normal. Nonobstructive mucosal thickening of the maxillary sinuses. Orbits are unremarkable. IMPRESSION: No acute intracranial findings. Electronically signed by: Miguel Cook MD 10/01/2022 4:51 AM CDT Due to temporary technical issues with the PACS/Fluency reporting system, reports are being signed by the in house radiologists without review as a courtesy to insure prompt reporting. The interpreting radiologist is fully responsible for the content of the report.
== END 2022-10-01 05:42 | disposition home or self-care (01) ==
LOC: ER 03:58
DX: F31.9 Bipolar disorder, unspecified (principal)
CPT/HCPCS: 93005; 85025; 80048; 36415; 85610; 80076; 85730; 70450; J1630; J2405; J7030; G0480 ×3

== ENCOUNTER 2022-10-04 00:18 | Emergency (ER) | payer OTHER ==
--- OUTSIDE RECORDS SUMMARY | 2022-10-04 00:24 | XMS REPORT | Continuity of Care Document ---
:1975 Author Organization [facility] t [address] [place] [address] Care Team Providers Name Role Phone Jluis Ferrell Primary Care Physician PIOTR CHANG Attending Clinician Unavailable Piotr Chang MD Attending Clinician aGbrielle Forman RN Attending Clinician Unavailable Doctor Unassigned, [place] Attending Clinician Unavailable Jluis Ferrell Attending Clinician JLUIS WHELAN Attending Clinician Unavailable Lab, Ang - Db Attending Clinician Unavailable BRNA RED Attending Clinician Unavailable Bran Red DO Attending Clinician Bebeto Woody Attending Clinician PIOTR CHANG Admitting Clinician Unavailable BRAN RED Admitting Clinician Unavailable Payers Payer Name Policy Type Policy Number Effective Date Expiration Date S lawrence PHCS GENERIC [id number] 00:00:00 [place]ICAID OF [place] [id number] 2021 00:00:00 [facility] [id number] 2014 MEDICAID 00:00:00 Problems Condition Condition Condition Status Onset Resolution Last Treating Co mments Source Name Details Category Date Date Treatment Clinician Date Esophageal Esophageal Disease Active Overview : Univers dysphagia dysphagia 3-08 Formattin i ty of 00:00: g of this [place] 00 note Medical might be Branch different from the original. Added automatic ally from request for surgery [id number] Abdominal Abdominal Disease Active Overview: Univers pain, pain, 3-08 Formattin ity of unspecifie unspecifie 00:00: g of this [place] d d 00 note Medical abdominal abdominal might be Br anch location location different from the original. Added automatic ally from request for surgery [id number] Wellness Wellness Disease Active Unive rs examinatio examinatio 2-13 it y of n n 00:00: [place] 00 Medical Branch Need for Need for Disease Active Unive rs hepatitis hepatitis 2-13 ity of C C 00:00: [place] screening screening 00 Medi faina test test Branch Need for Need for Disease Active Unive rs vaccinatio vaccinatio 2-13 it y of n n 00:00: [place] 00 Medical Branch Bipolar Bipolar Disease Active Overview: Univ ers disorder disorder Formattin ity of g of this [place] note Medical might be Branch different from the original. ICD10 Diagnosis Term Psychiatry Physician Utility Paresthesi Paresthes Problem Active 2018-12-15 Memoria [...] 2022-09-15 Not sure University SARS-CoV-2 00:00:00 11:05:00 [place] Medical (event) Branch Alcohol intake 2022-08-09 2022-08-09 Current University of 00:00:00 00:00:00 non-drinker of [place] Medi faina alcohol (finding) Branch Tobacco use and 2022-07-19 2022-07-19 Smokeless tobacco Un iversity of exposure 00:00:00 00:00:00 non-user [facility] Tobacco Comment 2022-07-19 2022-07-19 Second hand smoke Un iversity of 00:00:00 00:00:00 [facility] Sex [birth year] Universit y of 00:00:00 00:00:00 [facility] Smoking Status Start Date Stop Date Source Never smoked tobacco [facility] Social History [facility] Medications Ordered Filled Start Stop Current Ordering Indication Dosage Frequency Signature Comments Components Source Medication Medication Date Date Medication? Clinician (SIG) Name Name CALCIUM Yes Take by Univers CARBONATE 4-12 mouth. ity of (CALCIUM 11:03: [place] 500 ORAL) 23 [facility] CALCIUM Yes Take by Univers CARBONATE 4-12 mouth. ity of (CALCIUM 11:03: [place] 500 ORAL) 23 [facility] CALCIUM Yes Take by Univers CARBONATE 4-12 mouth. ity of (CALCIUM 11:03: [place] 500 ORAL) 23 [facility] CALCIUM Yes Take by Univers CARBONATE 4-12 mouth. ity of (CALCIUM 11:03: [place] 500 ORAL) 23 [facility] CALCIUM Yes Take by Univers CARBONATE 4-12 mouth. ity of (CALCIUM 11:03: [place] 500 ORAL) 23 [facility] CALCIUM Yes Take by Univers CARBONATE 4-12 mouth. ity of (CALCIUM 11:03: [place] 500 ORAL) 23 [facility] CALCIUM Yes Take by Univers CARBONATE 4-12 mouth. ity of (CALCIUM 11:03: [place] 500 ORAL) 23 [facility] sodium,pota 2022- Yes 117mL Take 117 Univers ssium,mag 3-07 03-08 mL by ity of sulfates 00:00: 05:59 mouth [place] 17.5-3.13-1 00 :00 now for 1 Med ical .6 gram dose. Branch CALCIUM Yes Take by Univers CARBONATE 2-13 mouth. ity of (CALCIUM 14:04: [place] 500 ORAL) 49 [facility] CALCIUM Yes Take by Univers CARBONATE 2-13 mouth. ity of (CALCIUM 14:04: [place] 500 ORAL) 49 [facility] CALCIUM Yes Take by Univers CARBONATE 2-13 mouth. ity of (CALCIUM 14:04: [place] 500 ORAL) 49 Medical Branch CALCIUM Yes Take by Univers CARBONATE 2-13 mouth. ity of (CALCIUM 14:04: [place] 500 ORAL) 49 [facility] Branch CALCIUM Yes Take by Univers CARBONATE 2-13 mouth. ity of (CALCIUM 14:04: [place] 500 ORAL) 49 Medical Branch CALCIUM Yes Take by Univers CARBONATE 2-13 mouth. ity of (CALCIUM 14:04: [place] 500 ORAL) 49 [facility] Branch CALCIUM Yes Take by Univers CARBONATE 2-13 mouth. ity of (CALCIUM 14:04: [place] 500 ORAL) 49 [facility] Branch CALCIUM Yes Take by Univers CARBONATE 2-13 mouth. ity of (CALCIUM 14:04: [place] 500 ORAL) 49 [facility] Branch CALCIUM Yes Take by Univers CARBONATE 2-13 mouth. ity of (CALCIUM 14:04: [place] 500 ORAL) 49 [facility] Branch CALCIUM Yes Take by Univers CARBONATE 2-13 mouth. ity of (CALCIUM 14:04: [place] 500 ORAL) 49 [facility] Branch iopamidol 2020-06- No [id number] 120mL 120 mL, Univers (ISOVUE 06-27 Intravenou ity o f 370-500 mL) 17:15: 16:04 s, ONCE, 1 [place] injection 00 :00 dose, On Medica l 120 mL [facility] 04/27/21 at 1115, Routine ondansetron 2020-06- No 4mg 4 mg, Slow Univers (ZOFRAN 06-27 IV Push, ity of (PF)) 16:45: 15:45 ONCE, 1 [place] injection 4 00 :00 dose, On Medi faina mg [facility] 04/27/21 at 1045, Routine sucralfate 2020-06 Yes [id number] 1g Take 1 U nivers 1 gram - tablet by ity of tablet 00:00: mouth [place] 00 before Medical meals and Branch at bedtime. dicyclomine 2020-06 Yes [id number] 10mg Take 1 Univers (BENTYL) 10 - capsule by it y of mg capsule 00:00: mouth [place] 00 every 8 Medical (eight) Branch hours as needed for Abdominal pain. ondansetron 2020-06 Yes [id number] 4mg Take 1 Univers 4 mg 1-22 tablet by ity of disintegrat 00:00: mouth [place] ing tablet 00 every 8 Medica l (eight) Branch hours as needed for Nausea and Vomiting (N/V). sucralfate 2020-06 Yes [id number] 1g Take 1 U nivers 1 gram 1-22 tablet by ity of tablet 00:00: mouth [place] 00 before Medical meals and Branch at bedtime. dicyclomine 2020-06 Yes [id number] 10mg Take 1 Univers (BENTYL) 10 1-22 capsule by it y of mg capsule 00:00: mouth [place] 00 every 8 Medical (eight) Branch hours as needed for Abdominal pain. ondansetron 2020-06 Yes [id number] 4mg Take 1 Univers 4 mg 1-22 tablet by ity of disintegrat 00:00: mouth [place] ing tablet 00 every 8 Medica l (eight) Branch hours as needed for Nausea and Vomiting (N/V). sucralfate 2020-06 Yes [id number] 1g Take 1 U nivers 1 gram 1-22 tablet by ity of tablet 00:00: mouth [place] 00 before Medical meals and Branch at bedtime. dicyclomine 2020-06 Yes [id number] 10mg Take 1 Univers (BENTYL) 10 1-22 capsule by it y of mg capsule 00:00: mouth [place] 00 every 8 Medical (eight) Branch hours as needed for Abdominal pain. ondansetron 2020-06 Yes [id number] 4mg Take 1 Univers 4 mg 1-22 tablet by ity of disintegrat 00:00: mouth [place] ing tablet 00 every 8 Medica l (eight) Branch hours as needed for Nausea and Vomiting (N/V). sucralfate 2020-06 Yes [id number] 1g Take 1 U nivers 1 gram 1-22 tablet by ity of tablet 00:00: mouth [place] 00 before Medical meals and Branch at bedtime. dicyclomine 2020-06 Yes [id number] 10mg Take 1 Univers (BENTYL) 10 1-22 capsule by it y of mg capsule 00:00: mouth [place] 00 every 8 Medical (eight) Branch hours as needed for Abdominal pain. ondansetron 2020-06 Yes [id number] 4mg Take 1 Univers 4 mg 1-22 tablet by ity of disintegrat 00:00: mouth [place] ing tablet 00 every 8 Medica l (eight) Branch hours as needed for Nausea and Vomiting (N/V). sucralfate 2020-06 Yes [id number] 1g Take 1 U nivers 1 gram 1-22 tablet by ity of tablet 00:00: mouth [place] 00 before Medical meals and Branch at bedtime. dicyclomine 2020-06 Yes [id number] 10mg Take 1 Univers (BENTYL) 10 1-22 capsule by it y of mg capsule 00:00: mouth [place] 00 every 8 Medical (eight) Branch hours as needed for Abdominal pain. ondansetron 2020-06 Yes [id number] 4mg Take 1 Univers 4 mg 1-22 tablet by ity of disintegrat 00:00: mouth [place] ing tablet 00 every 8 Medica l (eight) Branch hours as needed for Nausea and Vomiting (N/V). sucralfate 2020-06 Yes [id number] 1g Take 1 U nivers 1 gram 1-22 tablet by ity of tablet 00:00: mouth [place] 00 before Medical meals and Branch at bedtime. dicyclomine 2020-06 Yes [id number] 10mg Take 1 Univers (BENTYL) 10 1-22 capsule by it y of mg capsule 00:00: mouth [place] 00 every 8 Medical (eight) Branch hours as needed for Abdominal pain. ondansetron 2020-06 Yes [id number] 4mg Take 1 Univers 4 mg 1-22 tablet by ity of disintegrat 00:00: mouth [place] ing tablet 00 every 8 Medica l (eight) Branch hours as needed for Nausea and Vomiting (N/V). sucralfate 2020-06 Yes [id number] 1g Take 1 U nivers 1 gram 1-22 tablet by ity of tablet 00:00: mouth [place] 00 before Medical meals and Branch at bedtime. dicyclomine 2020-06 Yes [id number] 10mg Take 1 Univers (BENTYL) 10 1-22 capsule by it y of mg capsule 00:00: mouth [place] 00 every 8 Medical (eight) Branch hours as needed for Abdominal pain. ondansetron 2020-06 Yes [id number] 4mg Take 1 Univers 4 mg 1-22 tablet by ity of disintegrat 00:00: mouth [place] ing tablet 00 every 8 Medica l (eight) Branch hours as needed for Nausea and Vomiting (N/V). sucralfate 2020-06 Yes [id number] 1g Take 1 U nivers 1 gram 1-22 tablet by ity of tablet 00:00: mouth [place] 00 before Medical meals and Branch at bedtime. dicyclomine 2020-06 Yes [id number] 10mg Take 1 Univers (BENTYL) 10 1-22 capsule by it y of mg capsule 00:00: mouth [place] 00 every 8 Medical (eight) Branch hours as needed for Abdominal pain. ondansetron 2020-06 Yes [id number] 4mg Take 1 Univers 4 mg 1-22 tablet by ity of disintegrat 00:00: mouth [place] ing tablet 00 every 8 Medica l (eight) Branch hours as needed for Nausea and Vomiting (N/V). sucralfate 2020-06 Yes [id number] 1g Take 1 U nivers 1 gram 1-22 tablet by ity of tablet 00:00: mouth [place] 00 before Medical meals and Branch at bedtime. dicyclomine 2020-06 Yes [id number] 10mg Take 1 Univers (BENTYL) 10 1-22 capsule by it y of mg capsule 00:00: mouth [place] 00 every 8 Medical (eight) Branch hours as needed for Abdominal pain. ondansetron 2020-06 Yes [id number] 4mg Take 1 Univers 4 mg 1-22 tablet by ity of disintegrat 00:00: mouth [place] ing tablet 00 every 8 Medica l (eight) Branch hours as needed for Nausea and Vomiting (N/V). sucralfate 2020-06 Yes [id number] 1g Take 1 U nivers 1 gram 1-22 tablet by ity of tablet 00:00: mouth [place] 00 before Medical meals and Branch at bedtime. sucralfate 2020-06 Yes [id number] 1g Take 1 U nivers 1 gram 1-22 tablet by ity of tablet 00:00: mouth [place] 00 before Medical meals and Branch at bedtime. dicyclomine 2020-06 Yes [id number] 10mg Take 1 Univers (BENTYL) 10 1-22 capsule by it y of mg capsule 00:00: mouth [place] 00 every 8 Medical (eight) Branch hours as needed for Abdominal pain. ondansetron 2020-06 Yes [id number] 4mg Take 1 Univers 4 mg 1-22 tablet by ity of disintegrat 00:00: mouth [place] ing tablet 00 every 8 Medica l (eight) Branch hours as needed for Nausea and Vomiting (N/V). dicyclomine 2020-06 Yes [id number] 10mg Take 1 Univers (BENTYL) 10 1-22 capsule by it y of mg capsule 00:00: mouth [place] 00 every 8 Medical (eight) Branch hours as needed for Abdominal pain. sucralfate 2020-06 Yes [id number] 1g Take 1 U nivers 1 gram 1-22 tablet by ity of tablet 00:00: mouth [place] 00 before Medical meals and Branch at bedtime. dicyclomine 2020-06 Yes [id number] 10mg Take 1 Univers (BENTYL) 10 1-22 capsule by it y of mg capsule 00:00: mouth [place] 00 every 8 Medical (eight) Branch hours as needed for Abdominal pain. ondansetron 2020-06 Yes [id number] 4mg Take 1 Univers 4 mg 1-22 tablet by ity of disintegrat 00:00: mouth [place] ing tablet 00 every 8 Medica l (eight) Branch hours as needed for Nausea and Vomiting (N/V). ondansetron 2020-06 Yes [id number] 4mg Take 1 Univers 4 mg 1-22 tablet by ity of disintegrat 00:00: mouth [place] ing tablet 00 every 8 Medica l (eight) Branch hours as needed for Nausea and Vomiting (N/V). sucralfate 2020-06 Yes [id number] 1g Take 1 U nivers 1 gram 1-22 tablet by ity of tablet 00:00: mouth [place] 00 before Medical meals and Branch at bedtime. dicyclomine 2020-06 Yes [id number] 10mg Take 1 Univers (BENTYL) 10 1-22 capsule by it y of mg capsule 00:00: mouth [place] 00 every 8 Medical (eight) Branch hours as needed for Abdominal pain. ondansetron 2020-06 Yes [id number] 4mg Take 1 Univers 4 mg 1-22 tablet by ity of disintegrat 00:00: mouth [place] ing tablet 00 every 8 Medica l (eight) Branch hours as needed for Nausea and Vomiting (N/V). sucralfate 2020-06 Yes [id number] 1g Take 1 U nivers 1 gram 1-22 tablet by ity of tablet 00:00: mouth [place] 00 before Medical meals and Branch at bedtime. dicyclomine 2020-06 Yes [id number] 10mg Take 1 Univers (BENTYL) 10 1-22 capsule by it y of mg capsule 00:00: mouth [place] 00 every 8 Medical (eight) Branch hours as needed for Abdominal pain. ondansetron 2020-06 Yes [id number] 4mg Take 1 Univers 4 mg 1-22 tablet by ity of disintegrat 00:00: mouth [place] ing tablet 00 every 8 Medica l (eight) Branch hours as needed for Nausea and Vomiting (N/V). sucralfate 2020-06 Yes [id number] 1g Take 1 U nivers 1 gram 1-22 tablet by ity of tablet 00:00: mouth [place] 00 before Medical meals and Branch at bedtime. dicyclomine 2020-06 Yes [id number] 10mg Take 1 Univers (BENTYL) 10 1-22 capsule by it y of mg capsule 00:00: mouth [place] 00 every 8 Medical (eight) Branch hours as needed for Abdominal pain. ondansetron 2020-06 Yes [id number] 4mg Take 1 Univers 4 mg 1-22 tablet by ity of disintegrat 00:00: mouth [place] ing tablet 00 every 8 Medica l (eight) Branch hours as needed for Nausea and Vomiting (N/V). sucralfate 2020-06 Yes [id number] 1g Take 1 U nivers 1 gram 1-22 tablet by ity of tablet 00:00: mouth [place] 00 before Medical meals and Branch at bedtime. dicyclomine 2020-06 Yes [id number] 10mg Take 1 Univers (BENTYL) 10 1-22 capsule by it y of mg capsule 00:00: mouth [place] 00 every 8 Medical (eight) Branch hours as needed for Abdominal pain. ondansetron 2020-06 Yes [id number] 4mg Take 1 Univers 4 mg 1-22 tablet by ity of disintegrat 00:00: mouth [place] ing tablet 00 every 8 Medica l (eight) Branch hours as needed for Nausea and Vomiting (N/V). sucralfate 2020-06 Yes [id number] 1g Take 1 U nivers 1 gram 1-22 tablet by ity of tablet 00:00: mouth [place] 00 before Medical meals and Branch at bedtime. dicyclomine 2020-06 Yes [id number] 10mg Take 1 Univers (BENTYL) 10 1-22 capsule by it y of mg capsule 00:00: mouth [place] 00 every 8 Medical (eight) Branch hours as needed for Abdominal pain. ondansetron 2020-06 Yes [id number] 4mg Take 1 Univers 4 mg 1-22 tablet by ity of disintegrat 00:00: mouth [place] ing tablet 00 every 8 Medica l (eight) Branch hours as needed for Nausea and Vomiting (N/V). sucralfate 2020-06 Yes [id number] 1g Take 1 U nivers 1 gram 1-22 tablet by ity of tablet 00:00: mouth [place] 00 before Medical meals and Branch at bedtime. dicyclomine 2020-06 Yes [id number] 10mg Take 1 Univers (BENTYL) 10 1-22 capsule by it y of mg capsule 00:00: mouth [place] 00 every 8 Medical (eight) Branch hours as needed for Abdominal pain. ondansetron 2020-06 Yes [id number] 4mg Take 1 Univers 4 mg 1-22 tablet by ity of disintegrat 00:00: mouth [place] ing tablet 00 every 8 Medica l (eight) Branch hours as needed for Nausea and Vomiting (N/V). sucralfate 2020-06 Yes [id number] 1g Take 1 U nivers 1 gram 1-22 tablet by ity of tablet 00:00: mouth [place] 00 before Medical meals and Branch at bedtime. dicyclomine 2020-06 Yes [id number] 10mg Take 1 Univers (BENTYL) 10 1-22 capsule by it y of mg capsule 00:00: mouth [place] 00 every 8 Medical (eight) Branch hours as needed for Abdominal pain. ondansetron 2020-06 Yes [id number] 4mg Take 1 Univers 4 mg 1-22 tablet by ity of disintegrat 00:00: mouth [place] ing tablet 00 every 8 Medica l (eight) Branch hours as needed for Nausea and Vomiting (N/V). omeprazole 2020-06 No [id number] 20mg Take 1 Univers 20 mg 1-22 12-23 capsule by ity of capsule 00:00: 05:59 mouth [place] 00 :00 daily for Medical 30 days. Branch nystatin 2019-0 Yes [id number] Take 5 mL Univers 100,000 1-25 by mouth 4 ity of unit/mL 00:00: (four) [place] suspension 00 times Medical daily. Branch ondansetron 2019-0 Yes [id number] 4mg Take 1 Univers 4 mg tablet 1-25 tablet by ity of 00:00: mouth [place] 00 every 8 Medical (eight) Branch hours as needed for Nausea and Vomiting (N/V). nystatin 2019-0 Yes [id number] Take 5 mL Univers 100,000 1-25 by mouth 4 ity of unit/mL 00:00: (four) [place] suspension 00 times Medical daily. Branch ondansetron 2019-0 Yes [id number] 4mg Take 1 Univers 4 mg tablet 1-25 tablet by ity of 00:00: mouth [place] 00 every 8 Medical (eight) Branch hours as needed for Nausea and Vomiting (N/V). nystatin 2019-0 Yes [id number] Take 5 mL Univers 100,000 1-25 by mouth 4 ity of unit/mL 00:00: (four) [place] suspension 00 times Medical daily. Branch ondansetron 2019-0 Yes [id number] 4mg Take 1 Univers 4 mg tablet 1-25 tablet by ity of 00:00: mouth [place] 00 every 8 Medical (eight) Branch hours as needed for Nausea and Vomiting (N/V). nystatin 2019-0 Yes [id number] Take 5 mL Univers 100,000 1-25 by mouth 4 ity of unit/mL 00:00: (four) [place] suspension 00 times Medical daily. Branch ondansetron 2019-0 Yes [id number] 4mg Take 1 Univers 4 mg tablet 1-25 tablet by ity of 00:00: mouth [place] 00 every 8 Medical (eight) Branch hours as needed for Nausea and Vomiting (N/V). nystatin 2019-0 Yes [id number] Take 5 mL Univers 100,000 1-25 by mouth 4 ity of unit/mL 00:00: (four) [place] suspension 00 times Medical daily. Branch ondansetron 2019-0 Yes [id number] 4mg Take 1 Univers 4 mg tablet 1-25 tablet by ity of 00:00: mouth [place] 00 every 8 Medical (eight) Branch hours as needed for Nausea and Vomiting (N/V). nystatin 2019-0 Yes [id number] Take 5 mL Univers 100,000 1-25 by mouth 4 ity of unit/mL 00:00: (four) [place] suspension 00 times Medical daily. Branch ondansetron 2019-0 Yes [id number] 4mg Take 1 Univers 4 mg tablet 1-25 tablet by ity of 00:00: mouth [place] 00 every 8 Medical (eight) Branch hours as needed for Nausea and Vomiting (N/V). nystatin 2019-0 Yes [id number] Take 5 mL Univers 100,000 1-25 by mouth 4 ity of unit/mL 00:00: (four) [place] suspension 00 times Medical daily. Branch ondansetron 2019-0 Yes [id number] 4mg Take 1 Univers 4 mg tablet 1-25 tablet by ity of 00:00: mouth [place] 00 every 8 Medical (eight) Branch hours as needed for Nausea and Vomiting (N/V). nystatin 2019-0 Yes [id number] Take 5 mL Univers 100,000 1-25 by mouth 4 ity of unit/mL 00:00: (four) [place] suspension 00 times Medical daily. Branch ondansetron 2019-0 Yes [id number] 4mg Take 1 Univers 4 mg tablet 1-25 tablet by ity of 00:00: mouth [place] 00 every 8 Medical (eight) Branch hours as needed for Nausea and Vomiting (N/V). nystatin 2019-0 Yes [id number] Take 5 mL Univers 100,000 1-25 by mouth 4 ity of unit/mL 00:00: (four) [place] suspension 00 times Medical daily. Branch nystatin 2019-0 Yes [id number] Take 5 mL Univers 100,000 1-25 by mouth 4 ity of unit/mL 00:00: (four) [place] suspension 00 times Medical daily. Branch ondansetron 2019-0 Yes [id number] 4mg Take 1 Univers 4 mg tablet 1-25 tablet by ity of 00:00: mouth [place] 00 every 8 Medical (eight) Branch hours as needed for Nausea and Vomiting (N/V). ondansetron 2019-0 Yes [id number] 4mg Take 1 Univers 4 mg tablet 1-25 tablet by ity of 00:00: mouth [place] 00 every 8 Medical (eight) Branch hours as needed for Nausea and Vomiting (N/V). nystatin 2019-0 Yes [id number] Take 5 mL Univers 100,000 1-25 by mouth 4 ity of unit/mL 00:00: (four) [place] suspension 00 times Medical daily. Branch ondansetron 2019-0 Yes [id number] 4mg Take 1 Univers 4 mg tablet 1-25 tablet by ity of 00:00: mouth [place] 00 every 8 Medical (eight) Branch hours as needed for Nausea and Vomiting (N/V). nystatin 2019-0 Yes [id number] Take 5 mL Univers 100,000 1-25 by mouth 4 ity of unit/mL 00:00: (four) [place] suspension 00 times Medical daily. Branch ondansetron 2019-0 Yes [id number] 4mg Take 1 Univers 4 mg tablet 1-25 tablet by ity of 00:00: mouth [place] 00 every 8 Medical (eight) Branch hours as needed for Nausea and Vomiting (N/V). nystatin 2019-0 Yes [id number] Take 5 mL Univers 100,000 1-25 by mouth 4 ity of unit/mL 00:00: (four) [place] suspension 00 times Medical daily. Branch ondansetron 2019-0 Yes [id number] 4mg Take 1 Univers 4 mg tablet 1-25 tablet by ity of 00:00: mouth [place] 00 every 8 Medical (eight) Branch hours as needed for Nausea and Vomiting (N/V). nystatin 2019-0 Yes [id number] Take 5 mL Univers 100,000 1-25 by mouth 4 ity of unit/mL 00:00: (four) [place] suspension 00 times Medical daily. Branch ondansetron 2019-0 Yes [id number] 4mg Take 1 Univers 4 mg tablet 1-25 tablet by ity of 00:00: mouth [place] 00 every 8 Medical (eight) Branch hours as needed for Nausea and Vomiting (N/V). nystatin 2019-0 Yes [id number] Take 5 mL Univers 100,000 1-25 by mouth 4 ity of unit/mL 00:00: (four) [place] suspension 00 times Medical daily. Branch ondansetron 2019-0 Yes [id number] 4mg Take 1 Univers 4 mg tablet 1-25 tablet by ity of 00:00: mouth [place] 00 every 8 Medical (eight) Branch hours as needed for Nausea and Vomiting (N/V). nystatin 2019-0 Yes [id number] Take 5 mL Univers 100,000 1-25 by mouth 4 ity of unit/mL 00:00: (four) [place] suspension 00 times Medical daily. Branch ondansetron 2019-0 Yes [id number] 4mg Take 1 Univers 4 mg tablet 1-25 tablet by ity of 00:00: mouth [place] 00 every 8 Medical (eight) Branch hours as needed for Nausea and Vomiting (N/V). nystatin 2019-0 Yes [id number] Take 5 mL Univers 100,000 1-25 by mouth 4 ity of unit/mL 00:00: (four) [place] suspension 00 times Medical daily. Branch ondansetron 2019-0 Yes [id number] 4mg Take 1 Univers 4 mg tablet 1-25 tablet by ity of 00:00: mouth [place] 00 every 8 Medical (eight) Branch hours as needed for Nausea and Vomiting (N/V). nystatin 2019-0 Yes [id number] Take 5 mL [facility] 100,000 1-25 by mouth 4 ity of unit/mL 00:00: (four) [place] suspension 00 times Medical daily. Branch ondansetron 2019-0 Yes [id number] 4mg Take 1 Univers 4 mg tablet 1-25 tablet by ity of 00:00: mouth [place] 00 every 8 Medical (eight) Branch hours as needed for Nausea and Vomiting (N/V). nystatin 2019-0 Yes [id number] Take 5 mL [facility] 100,000 1-25 by mouth 4 ity of unit/mL 00:00: (four) [place] suspension 00 times Medical daily. Branch ondansetron 2018-0 Yes [id number] 4mg Take 1 Univers 4 mg tablet [...] tab, PO, l tablet 15:33: Q12H, 0 [place] 00 Refill(s) Famotidine 2017-06 No 20 mg = 1 [place] 0-11 tab, PO, l 15:33: Q12H, 0 [place] 00 Refill(s) Ciprofloxac 2017-06 No 500 mg, Mem oria in 0-11 PO, Q12H, l 15:33: 0 [place] 00 Refill(s) hydrOXYzine 2017-06 No 25 mg, [...] 0-11 tab, PO, l 15:33: Q12H, 0 [place] 00 Refill(s) Ciprofloxac 2017-06 No 500 mg, Mem oria in 0-11 PO, Q12H, l 15:33: 0 [place] 00 Refill(s) hydrOXYzine 2017-06 No 25 mg, PO, Memoria hydrochlori 0-11 Q6H, 0 l de 15:33: Refill(s) Metronidazo 2017-06 No 500 mg = 1 Memoria le 0-11 tab, PO, l 15:33: Q6H, 0 [place] 00 Refill(s) Omeprazole 2017-06 No 40 mg, [...] 0-11 tab, PO, l 15:33: Q12H, 0 [place] Refill(s) Ciprofloxac 2017-06 No 500 mg, Mem oria in 0-11 PO, Q12H, l 15:33: 0 [place] 00 Refill(s) hydrOXYzine 2017-06 No 25 mg, [...] tab, PO, l tablet 15:33: Q12H, 0 [place] 00 Refill(s) Famotidine 2017-06 No 20 mg = 1 Me moria 0-11 tab, PO, l 15:33: Q12H, 0 Cal 00 Refill(s) Metronidazo 2017-06 No 500 mg = 1 Memoria le 0-11 tab, PO, l 15:33: Q6H, 0 Cal 00 Refill(s) Omeprazole 2017-06 No 40 mg, PO, M emoria 0-11 Daily, 0 l 15:33: Refill(s) Ciprofloxac 2017-06 No 500 mg, Mem oria in 0-11 PO, Q12H, l 15:33: 0 Cal Refill(s) Dicyclomine 2017-06 No 20 mg, PO, Memoria 0-11 Q6H, 0 l 15:33: Refill(s) ondansetron 2017-06 No 4 mg = 1 Me moria 4 mg oral 0-11 tab, PO, l tablet 15:33: Q12H, 0 Cal Refill(s) Famotidine 2017-06 No 20 mg = 1 Me moria 0-11 tab, PO, l 15:33: Q12H, 0 [place] 00 Refill(s) Ciprofloxac 2017-06 No 500 mg, Mem oria in 0-11 PO, Q12H, l 15:33: 0 [place] 00 Refill(s) hydrOXYzine 2017-06 No 25 mg, [...] tab, PO, l tablet 15:33: Q12H, 0 [place] 00 Refill(s) Famotidine 2017-06 No 20 mg = 1 Me moria 0-11 tab, PO, l 15:33: Q12H, 0 [place] 00 Refill(s) Ciprofloxac 2017-06 No 500 mg, Mem oria in 0-11 PO, Q12H, l 15:33: 0 [place] 00 Refill(s) hydrOXYzine 2017-06 No 25 mg, PO, Memoria hydrochlori 0-11 Q6H, 0 l de 15:33: Refill(s) Metronidazo 2017-06 No 500 mg = 1 Memoria le 0-11 tab, PO, l 15:33: Q6H, 0 [place] 00 Refill(s) Omeprazole 2017-06 No 40 mg, PO, M emoria 0-11 Daily, 0 l 15:33: Refill(s) Dicyclomine 2017-06 No 20 mg, PO, Memoria 0-11 Q6H, 0 l 15:33: Refill(s) ondansetron 2017-06 No 4 mg = 1 Me moria 4 mg oral 0-11 tab, PO, l tablet 15:33: Q12H, 0 [place] 00 Refill(s) Famotidine 2017-06 No 20 mg = 1 Me moria 0-11 tab, PO, l 15:33: Q12H, 0 [place] 00 Refill(s) Ciprofloxac 2017-06 No 500 mg, Mem oria in 0-11 PO, Q12H, l 15:33: 0 [place] 00 Refill(s) hydrOXYzine 2017-06 No 25 mg, [...] tab, PO, l tablet 15:33: Q12H, 0 [place] 00 Refill(s) Famotidine 2017-06 No 20 mg = 1 Me moria 0-11 tab, PO, l 15:33: Q12H, 0 [place] 00 Refill(s) Ciprofloxac 2017-06 No 500 mg, Mem oria in 0-11 PO, Q12H, l 15:33: 0 [place] 00 Refill(s) hydrOXYzine 2017-06 No 25 mg, PO, Memoria hydrochlori 0-11 Q6H, 0 l de 15:33: Refill(s) Metronidazo 2017-06 No 500 mg = 1 Memoria le 0-11 tab, PO, l 15:33: Q6H, 0 [place] 00 Refill(s) Omeprazole 2017-06 No 40 mg, [...] 0-11 tab, PO, l 15:33: Q12H, 0 [place] 00 Refill(s) Ciprofloxac 2017-06 No 500 mg, Mem oria in 0-11 PO, Q12H, l 15:33: 0 [place] 00 Refill(s) hydrOXYzine 2017-06 No 25 mg, PO, Memoria hydrochlori 0-11 Q6H, 0 l de 15:33: Refill(s) Metronidazo 2017-06 No 500 mg = 1 Memoria le 0-11 tab, PO, l 15:33: Q6H, 0 Refill(s) omeprazole 2017-06- No Univer s 40 mg 005 04-27 ity of capsule 00:00: 00:00 [place] 00 :00 Medical Branch hydrocortis Yes 25mg [...] Medical suppository (two) Branch times daily. hydrocortis 2017-0 Yes 25mg Insert 1 Un nelida one 8-24 Suppositor ity of (ANUSOL-HC) [place] 25 [place] 00 rectum 2 Medical suppository (two) Branch times daily. CALCIUM 2015-0 Yes Take by Univers CARBONATE 3-02 mouth. ity of (CALCIUM 14:20: [place] 500 ORAL) 36 Medical Branch CALCIUM 2016-0 Yes Take by Univers CARBONATE 3-02 mouth. ity of (CALCIUM 14:20: [place] 500 ORAL) 36 Medical Branch Immunizations Ordered Filled Immunization Date Status Comments [facility] e Immunization Name Name TDAP 2022-07-19 Completed University of 00:00:00 [facility] Influenza Virus 2022-07-19 Completed Universit y of Vaccine Quad IM, 00:00:00 [facility] dical Preserv and ABX Branch Free 6 MO-64 YRS TDAP 2022-07-19 Completed University of 00:00:00 [facility] Influenza Virus 2022-07-19 Completed Universit y of Vaccine Quad IM, 00:00:00 [facility] dical Preserv and ABX Branch Free 6 MO-64 YRS TDAP 2022-07-19 Completed University of 00:00:00 [facility] Influenza Virus 2022-07-19 Completed Universit y of Vaccine Quad IM, 00:00:00 [facility] dical Preserv and ABX Branch Free 6 MO-64 YRS TDAP 2022-07-19 Completed University of 00:00:00 [facility] Influenza Virus 2022-07-19 Completed Universit y of Vaccine Quad IM, 00:00:00 [place] Me dical Preserv and ABX Branch Free 6 MO-64 YRS TDAP 2022-07-19 Completed University of 00:00:00 [facility] Influenza Virus 2022-07-19 Completed Universit y of Vaccine Quad IM, 00:00:00 [facility] dical Preserv and ABX Branch Free 6 MO-64 YRS TDAP 2022-07-19 Completed University of 00:00:00 [facility] Influenza Virus 2022-07-19 Completed Universit y of Vaccine Quad IM, 00:00:00 [facility] dical Preserv and ABX Branch Free 6 MO-64 YRS TDAP 2022-07-19 Completed University of 00:00:00 [facility] Influenza Virus 2022-07-19 Completed Universit y of Vaccine Quad IM, 00:00:00 [facility] dical Preserv and ABX Branch Free 6 MO-64 YRS TDAP 2022-07-19 Completed University of 00:00:00 [facility] Influenza Virus 2022-07-19 Completed Universit y of Vaccine Quad IM, 00:00:00 [facility] dical Preserv and ABX Branch Free 6 MO-64 YRS TDAP 2022-07-19 Completed University of 00:00:00 [facility] Influenza Virus 2022-07-19 Completed Universit y of Vaccine Quad IM, 00:00:00 [place] Me dical Preserv and ABX Branch Free 6 MO-64 YRS TDAP 2022-07-19 Completed University of 00:00:00 [facility] Influenza Virus 2022-07-19 Completed Universit y of Vaccine Quad IM, 00:00:00 [place] Me dical Preserv and ABX Branch Free 6 MO-64 YRS TDAP 2022-07-19 Completed University of 00:00:00 [facility] Influenza Virus 2022-07-19 Completed Universit y of Vaccine Quad IM, 00:00:00 [place] Me dical Preserv and ABX Branch Free 6 MO-64 YRS TDAP 2022-07-19 Completed University of 00:00:00 [facility] Influenza Virus 2022-07-19 Completed Universit y of Vaccine Quad IM, 00:00:00 [facility] dical Preserv and ABX Branch Free 6 MO-64 YRS TDAP 2022-07-19 Completed University of 00:00:00 [facility] Influenza Virus 2022-07-19 Completed Universit y of Vaccine Quad IM, 00:00:00 [place] Me dical Preserv and ABX Branch Free 6 MO-64 YRS TDAP 2022-07-19 Completed University of 00:00:00 [facility] Influenza Virus 2022-07-19 Completed Universit y of Vaccine Quad IM, 00:00:00 [facility] dical Preserv and ABX Branch Free 6 MO-64 YRS TDAP 2022-07-19 Completed University of 00:00:00 [facility] Influenza Virus 2022-07-19 Completed Universit y of Vaccine Quad IM, 00:00:00 [facility] dical Preserv and ABX Branch Free 6 MO-64 YRS TDAP 2022-07-19 Completed University of 00:00:00 [facility] Influenza Virus 2022-07-19 Completed Universit y of Vaccine Quad IM, 00:00:00 [place] Me dical Preserv and ABX Branch Free 6 MO-64 YRS Vital Signs Vital Name Observation Time Observation Value Comments Source Systolic blood 2022-08-09 13:52:00 116 mm[Hg] Univer sity of pressure [facility] Diastolic blood 2022-08-09 13:52:00 76 mm[Hg] Unive rsity of pressure [facility] Heart rate 2022-08-09 13:52:00 62 /min [facility] [place] [facility] Body temperature 2022-08-09 13:52:00 36.44 Carol Univ ersity [facility] [place] [facility] Body height 2022-08-09 13:52:00 180.3 cm [facility] [place] [facility] Body weight 2022-08-09 13:52:00 89.812 kg [facility] [place] [facility] BMI 2022-08-09 13:52:00 27.62 kg/m2 [facility] [place] [facility] Oxygen saturation in 2022-08-09 13:52:00 98 /min University of Arterial blood by [facility] faina Pulse oximetry Branch Systolic blood 2022-07-19 20:02:00 107 mm[Hg] Univer sity of pressure [place] [facility] Diastolic blood 2022-07-19 20:02:00 67 mm[Hg] Unive rsity of pressure [place] [facility] Heart rate 2022-07-19 20:02:00 75 /min [facility] [place] [facility] Body temperature 2022-07-19 20:02:00 36.89 Carol Univ [facility] [place] [facility] Body height 2022-07-19 20:02:00 180.3 cm [facility] [place] [facility] Body weight 2022-07-19 20:02:00 90.81 kg [facility] [place] [facility] BMI 2022-07-19 20:02:00 27.92 kg/m2 [facility] [place] [facility] Oxygen saturation in 2022-07-19 20:02:00 100 /min University of Arterial blood by [facility] faina Pulse oximetry Branch Systolic blood 2021-04-27 17:30:43 120 mm[Hg] Univer sity of pressure [place] [facility] Diastolic blood 2021-04-27 17:30:43 75 mm[Hg] Unive rsity of pressure [place] [facility] Heart rate 2021-04-27 17:30:43 70 /min [facility] [place] [facility] Body temperature 2021-04-27 17:30:43 36.78 Carol Univ [facility] [place] [facility] Respiratory rate 2021-04-27 17:30:43 18 /min Univ [facility] [place] [facility] Oxygen saturation in 2021-04-27 17:30:43 100 /min University of Arterial blood by [facility] faina Pulse oximetry Branch Heart Rate 2018-03-16 15:31:00 Jefferson Mccall Weight 2018-03-16 15:31:00 Jefferson Mccall Height 2018-03-16 15:31:00 180.34 cm Jefferson Mccall BMI Calculated 2018-03-16 15:31:00 Quang stevens Cal Systolic (mm Hg) 2018-03-16 15:31:00 Ming Cortésann Diastolic (mm Hg) 2018-03-16 15:31:00 Zeeshan orial Cal Procedures Procedure Date / Time Performed Performing Clinician [facility] e DISCLOSURE AND 2022-08-10 06:01:00 Doctor Unassigned, No [facility] CONSENT, MEDICAL AND Name Medical [facility] SURGICAL PROCEDURES TDAP VACCINE, >11 YRS, 2022-07-19 20:16:53 Jluis Whelan [facility] Medical Branch FLU VACC (), 2022-07-19 20:16:53 Jluis Whelan [facility] 6 MO-64 YRS, .5ML, IM, Medical [place] QUAD (FLUCELVAX) ASSIGNMENT OF BENEFITS 2022-07-19 19:23:15 Doctor Unassigned, No [facility] Name Medical Branch CT ABDOMEN PELVIS W 2021-04-27 16:08:21 Bran [facility] CONTRAST Medical Branch LIPASE 2021-04-27 15:45:00 [facility] COMP. METABOLIC PANEL 2021-04-27 15:45:00 [facility] ([id number]) [facility] CBC WITH DIFF 2021-04-27 15:45:00 [facility] URINALYSIS 2021-04-27 15:45:00 [facility] NOTICE OF PRIVACY 2021-04-27 14:21:16 Doctor Unassigned, No [facility] Name Medical Branch CONSENT/REFUSAL FOR 2021-04-27 14:20:59 Doctor Unassigned, No [facility] DIAGNOSIS AND Name Medical [place] TREATMENT Encounters Start End Encounter Admission Attending Care Care Encounter Source Date/Time Date/Time Type Type Clinicians Facility Department ID 2022-09-13 Outpatient KATHE OSULLIVAN [id number] Univers 15:45:30 PIOTR ayala [facility] [place] [facility] 2022-09-28 2022-09-28 Outpatient [facility] [id number] Andrew 13:29:12 13:29:12 0425 [place] 2022-09-27 2022-09-27 Telephone [facility] [id number] Univers 00:00:00 00:00:00 Piotr CARMONA [id number] i ty [place] [id number] Ca dical [address] 2022-09-17 2022-09-17 Telephone [facility] [id number] Univers 00:00:00 00:00:00 Piotr CARMONA [id number] i ty [place] [id number] Ca dical NAL [address] [place] [address] 2022-09-15 2022-09-15 Telephone Gabrielle Forman [facility] [id number] Univers 00:00:00 00:00:00 Miguel Angel CARMONA [id number] i ty [place] SURGICAL [id number] [facility] [address] [place] [address] 2022-09-13 2022-09-13 Telephone [facility] [id number] Univers 00:00:00 00:00:00 Piotr CARMONA 350.1.13.10 i ty [place] [id number] Ca dical NAL [address] [place] [address] 2022-08-10 2022-08-10 Orders Doctor PIERRE [id number] Univers 00:00:00 00:00:00 Only Unassigned, PADMINI 350.1.13.10 ity of [facility] 4.2.7.2.686 Edwar as [id number] [address] 2022-08-09 2022-08-09 [facility] [id number] Univers 08:00:00 10:23:38 PIOTR ayala [facility] [place] [facility] 2022-08-09 2022-08-[address] [facility] [id number] Univers 08:00:00 10:23:38 Visit Piotr RENAEJERMAINE 350.1.13.10 i ty [place] [id number] Ca dical ELLEN [address] [facility] 2022-07-20 2022-07-[address] [facility] [id number] Univers 00:00:00 00:00:00 Jluis [facility] 350.1.13.10 it y of [place] 4.2.7.2.686 Edwar as KELIN?BLEA [id number] Ca dichilda PRINCEEY [address] [facility] [address] [facility] 2022-07-19 2022-07-19 Outpatient R TIP [facility] [id number] Univers 14:00:00 17:27:03 JLUIS ayala [facility] [place] [facility] 2022-07-19 2022-07-19 [facility], Ang - Db [facility] 1.2.840.1 [id number] Univers 15:00:00 15:15:00 Visit Tip Jluis MULLEN 350.1.13.10 ity of [place] 4.2.7.2.686 Edwar as KELIN?BLEA [id number] Ca dichilda PRINCEEY [address] [facility] [address] [facility] 2022-07-19 2022-07-[address] [facility] 1.2.840.114 [id number] Univers 14:00:00 14:30:00 Visit Jluis MULLEN 350.1.13.10 it y of [place] 4.2.7.2.686 Edwar as KELIN?BLEA [id number] Ca dical YESENIA [address] [place] [facility] [address] [facility] 2022-07-19 2022-07-19 Orders Doctor JAY 1.2.840.114 [id number] Univers 00:00:00 00:00:00 Only Unassigned, PADMINI 350.1.13.10 ity of [facility] 4.2.7.2.686 Edwar as [phone] [address] 2022-07-12 2022-07-12 Outpatient R TIP, [facility] [id number] Univers 13:00:00 13:00:00 JLUIS ayala [facility] [place] [facility] 2021-04-27 2021-04-27 Emergency X [facility] ERT [id number] Univers 08:27:00 11:54:00 BRAN ayala [facility] [place] [facility] 2021-04-27 2021-04-27 Emergency [facility] [id number] Univers 08:27:00 11:54:00 Bran CARMONA 350.1.13.10 i [facility] 4.2.7.2.686 [facility] [id number] [place] [address] Branch 2018-05-26 2018-05-28 Outside nullFlavo MNA [id number] Memoria 16:20:00 05:59:59 Medical r Neurology 02 l Records [place] 2018-05-26 2018-05-28 Outside nullFlavo MNA [id number] Memoria 16:20:00 05:59:59 Medical r Neurology 02 l Records [place] 2018-05-26 2018-05-27 Outpatient MHMISCHER MHMISCHER [id number] 10:20:00 23:59:59 02 2018-04-21 2018-04-21 Ambulatory nullFlavo MNA [id number] Memoria 17:15:00 17:15:00 Pre-Reg r Neurology 01 l [place] 2018-04-21 2018-04-21 Ambulatory nullFlavo MNA [id number] Memoria 17:15:00 17:15:00 Pre-Reg r Neurology 01 l Payal Mccall 2018-04-21 2018-04-21 Outpatient GALO ROSENTHAL [id number] Memoria 11:15:00 11:15:00 01 miguel angel Mccall 2018-04-21 2018-04-21 Outpatient MAGDALENA WoodySCHSHANICE MHMISCHER [id number] 11:15:00 11:15:00 Bebeto aMrquis 2018-03-22 2018-03-24 Outside nullFlavo MNA [id number] Memoria 22:51:00 04:59:59 Medical r Neurology 01 l Records [place] 2018-03-22 2018-03-24 Outside nullFlavo MNA [id number] Memoria 22:51:00 04:59:59 Medical r Neurology 01 l Records Payal Mccall 2018-03-22 2018-03-24 Phone nullFlavo MNA [id number] Memoria 21:22:00 04:59:59 Message r Neurology 00 l Payal Mccall 2018-03-22 2018-03-24 Phone nullFlavo MNA [id number] Memoria 21:22:00 04:59:59 Message r Neurology 00 l Payal Mccall 2018-03-22 2018-03-23 Outpatient MHMISCHER MHMISCHER [id number] 17:51:00 23:59:59 01 2018-03-22 2018-03-23 Outpatient MHMISCHER MHMISCHER [id number] 16:22:00 23:59:59 00 2018-03-16 2018-03-17 Outpatient nullFlavo MNA [id number] Memoria 16:00:00 04:59:59 r Neurology 00 l Payal Mccall 2018-03-16 2018-03-17 Outpatient nullFlavo MNA [id number] Memoria 16:00:00 04:59:59 r Neurology 00 l Payal Mccall 2018-03-16 2018-03-16 Outpatient Bong MISCHER MHMISCHER [id number] 11:00:00 23:59:59 Bebeto 00 Benitez 2018-03-16 2018-03-16 Outpatient MHIE MHIE [id number] Memoria 11:00:00 11:00:00 00 miguel angel Mccall Results Test Description Test Time Test Comments Results Result Comments Source CHLAMYDIA, NAAT, URINE 2022-09-24 18:32:30 Test Item Value Reference Range Interpretation Comme nts CHLAMYDIA, NAAT, URINE (test NEGATIVE NEGATIVE Testing is performed with Serge code = 44150) VALERIO 6800/880 0 systems usingreal-time polymerase chain reaction (PCR) method. A negative result does not exclude low level infection, spec imensampling error, or collection e rror. GONORRHEA, NAAT, [id number] 18:32:30 Test Item Value Reference Range Interpretation Comments GONORRHEA, NAAT, NEGATIVE NEGATIVE Testing is performed with URINE (test code Serge VALERIO 6800/8800 = 99172) systems usingre al-time polymerase koko n reaction (PCR) method. A negative result does not exclude low level infection , specimensamplin g error, or collection erro r. HERPES SIMPLEX AB, [id number] 13:53:23 Test Item Value Reference Range Interpretation Comments HERPES SIMPLEX AB, 0.54 INDEX SEE BELOW INTERPRE TATION UNITS IgM (test code = RANGE ----- --------- 32970) ----- ----- NEG ATIVE INDEX <=0.89 EQ UIVOCAL INDEX 0.90-1.09 POSITIVE INDEX >=1.10 HIV 1/2 4TH GEN, RFLX [id number] 07:01:13 Test Item Value Reference Range Interpretation Comments HIV 1/2 4TH GEN, RFLX CONF (test NON-REACTIVE NON-REACTIVE code = 3514) HEPATITIS PANEL, [id number] 07:01:13 Test Item Value Reference Range Interpretation Comments HEPATITIS A IgM (test NON-REACTIVE NON-REACTIVE code = 23488) HEPATITIS B CORE IgM NON-REACTIVE NON-REACTIVE (test code = 4644) HEPATITIS B SURF AG NON-REACTIVE NON-REACTIVE (test code = 2739) HEPATITIS C ANTIBODY NON-REACTIVE NON-REACTIVE (test code = 4675) INTERPRETATION (NOTE) Hepatitis A HEPATITIS A: (test code sero logy shows no = 2552) evidence of acu te hepatitis A. INTERPRETATION (NOTE) Hepatitis B HEPATITIS B: (test code sero logy shows no = 19834) evidence of acu te hepatitis B and no indication of exposure to hepatitis B vir us in the previous alex eight months. INTERPRETATION (NOTE) Hepatitis C HEPATITIS C: (test code sero logy shows no = 93763) evidence of exposure to hepatitisC viru s at this time. I t can take up to 12 months after exposure tothe hepatitis C vir us for antibodies to become detectab le in the blood in certain patient s. HERPES SIMPLEX 1/2 AB, IgG [id number] 07:01:13 Test Item Value Reference Range Interpretation Comments HERPES SIMPLEX 1 7.520 INDEX SEE BELOW H INTERPRETA TION UNITS AB, IgG (test code RANGE --- = 11554) ----- ----- NON -REACTIVE INDEX <1.000 RE ACTIVE INDEX >=1.00 0 HERPES SIMPLEX 2 0.076 INDEX SEE BELOW INTERPRETA TION UNITS AB, IgG (test code RANGE --- = 11366) ----- ----- NON -REACTIVE INDEX <1.000 RE ACTIVE INDEX >=1.00 0 [facility] has importa nt pathology staff changes effective 08/04. New patholo gy staff will provide uninterrupted, excellent patient care an d clinical consul tation. See URL: [email or web address]. UNLESS OTHERWISE INDICATED, ALL [facility] [employer] [address] [facility] [place], [place] [address] 4 LABORATORY DIRE CTOR: SHIELA RICE M.D. [place] NUMBER [id number] [facility] [place] [id number] RPR REFLEX TO T. PALLIDUM - [id number] 04:35:14 Test Item Value Reference Range Interpretation Comments RPR (test code = 58437) NON-REACTIVE NON-REACTIVE RPR TITER (test code = 3500) NOT INDIC. TITER NOT INDIC. CBC WITH [id number] 16:21:34 Test Item Value Reference Range Interpretation Comments WBC (test code = See_Comment [Automated 2983-2) message] The sy stem which generated this result transmitted reference range : 4.20 - 10.70 10*3/?L. The reference range was not used to interpret this result as normal/abnormal . RBC (test code = See_Comment [Automated 312-8) message] The sy stem which generated this [...] RDW-SD (test code = 39.9 fL 38.5-51.6 95394-6) RDW-CV (test code = 12.4 % 12.1-15.4 788-0) PLT (test code = See_Comment L [Automated 777-3) message] The sy stem which generated this result transmitted reference range : 150 - 328 10*3/ ?L. The reference r elizabeth was not used to interpret this result as normal/abnormal . MPV (test code = 10.6 fL 9.8-13.0 06170-8) IPF % (test code = 3.9 % 1.2-10.7 Platelet count 7972274261) measured by fluorescence method. NRBC/100 WBC (test See_Comment [Automat ed code = 4358387110) message] The system which generated this result transmitted reference range : 0.0 - 10.0 /100 WBCs. The refer ence range was not u sed to interpret th is result as normal/abnormal . NRBC x10^3 (test code <0.01 See_Comment [Auto mated = 0864877572) message] The s ystem which generated this result transmitted reference range : 10*3/?L. The reference range was not used to interpret this result as normal/abnormal . GRAN MAT (NEUT) % 45.9 % (test code = 770-8) IMM GRAN % (test code 0.20 % = 3815450493) LYMPH % (test code = 41.6 % 736-9) MONO % (test code = 5.3 % 5905-5) EOS % (test code = 6.5 % 713-8) BASO % (test code = 0.5 % 706-2) GRAN MAT x10^3(ANC) 2.59 10*3/uL 1.99-6.95 (test code = 0563934934) IMM GRAN x10^3 (test <0.03 0.00-0.06 code = 9747037547) LYMPH x10^3 (test code 2.35 10*3/uL 1.09-3.23 = 731-0) MONO x10^3 (test code 0.30 10*3/uL 0.36-1.02 L = 742-7) EOS x10^3 (test code = 0.37 10*3/uL 0.06-0.53 711-2) BASO x10^3 (test code 0.03 10*3/uL 0.01-0.09 = 704-7) Lab Interpretation Abnormal (test code = 28007-2) [facility]. METABOLIC PANEL ([id number])2021-04-27 16:20:53 Test Item Value Reference Range Interpretation Comments NA (test code = 138 mmol/L 135-145 5903118504) K (test code = 4.3 mmol/L 3.5-5.0 8850218654) CL (test code = 104 mmol/L 98-108 0548839493) CO2 TOTAL (test code 28 mmol/L 23-31 = 5387307014) AGAP (test code = 2-16 2969081033) BUN (test code = 10 mg/dL 7-23 6850664039) GLUCOSE (test code = 95 mg/dL 70-110 4277831222) CREATININE (test code 0.93 mg/dL 0.60-1.25 = 4812025198) TOTAL BILI (test code 1.1 mg/dL 0.1-1.1 = 7483886850) CALCIUM (test code = 9.2 mg/dL 8.6-10.6 6554147286) T PROTEIN (test code 7.3 g/dL 6.3-8.2 = 8589765458) ALBUMIN (test code = 4.2 g/dL 3.5-5.0 6803631739) ALK PHOS (test code = 55 U/L 34-122 1992450131) ALTv (test code = 21 U/L 5-50 1742-6) AST(SGOT) (test code 28 U/L 13-40 = 9270028792) eGFR (test code = mL/min/1.73m2 7531747808) ABA (test code = ABA) Association of [...] or urine or abnormalities in imaging tests). [facility] 16:[facility]33 Test Item Value Reference Range Interpretation Comments LIPASE (test code = 2463916022) 58 U/L 0-220 Lab Interpretation (test code = Normal 76311-9) [facility]"
[2022-10-04] MEDS ORDERED: MORPHINE 4 MG/ML SYR ONE (01:09)
[2022-10-04] MEDS ORDERED: ONDANSETRON 4 MG/2 ML VIAL ONE (01:10)
[2022-10-04] MEDS ORDERED: KETOROLAC 30 MG/ML INJ ONE (01:10)
[2022-10-04] MEDS ORDERED: NA CHLORIDE 0.9% 1,000 ML ONE (01:10)
[2022-10-04] MEDS ORDERED: LORazepam 2 MG/ML VIAL ONE (01:11)
[2022-10-04 01:31] LABS: Albumin 3.5 g/dL (3.4-5.0); Bilirubin Total 0.3 mg/dL (0.2-1.0); Protein, Total 6.9 g/dL (6.4-8.2)
[2022-10-04 01:32] LABS: Absolute Lymphocytes (CBC) 2.7 K/uL (0.7-4.9); Hematocrit 41.2 % (39.6-49.0); Lymphocytes % 36.1 % (15.3-44.8); MCV 86.2 fL (80-100); RBC Red Blood Cell Count 4.78 M/uL (4.33-5.43)
[2022-10-04 02:34] LABS: Specific Gravity 1.011 (1.005-1.030); Urine Bilirubin NEGATIVE (Negative); Urine Blood Negative (Negative); Urine Clarity Clear (Clear); Urine Color Light-Yellow (Yellow); Urine Glucose NEGATIVE (Negative); Urine Protein NEGATIVE (Negative); Urine Urobilinogen 1+ (Normal); Urine pH 6.5 (5.0-7.0)
--- NOTE | 2022-10-04 03:05 | EDPHYS ---
Physician Documentation [facility] Name: Juan Campos Age: 46 yrs Sex: Male : 1975 Arrival Date: 10/04/2022 Time: 00:18 Bed 5 Private MD: ED Physician Zac Galvan HPI: 10/04 00:31 This 46 yrs old Male presents to ER via Unassigned with complaints of Chest sp4 Pain, Abdominal Pain. 00:31 46-year-old male presents complaint of chest pain and abdominal PAIN . sp4 02:54 46-year-old male presents with acute onset of what is reported as abdominal pain sp4 diffusely and some complaint of a chest pain. Patient was here on 10/01/2022 for symptoms of anxiety. . 02:57 Patient discussed severe diffuse and is crying on exam. . sp4 Historical: - Allergies: 00:31 No Known Allergies; kl - PMHx: 00:31 adhd; Anxiety; Bipolar disorder; kl - PSHx: 00:31 hernia; Vasectomy; kl - Immunization history:: Adult Immunizations not up to date. - Social history:: Smoking status: Patient denies any tobacco usage or history of. - Family history:: not pertinent. ROS: 02:57 Constitutional: Negative for fever, chills, and weight loss, Eyes: Negative for injury, sp4 pain, redness, and discharge, ENT: Negative for injury, pain, and discharge, Neck: Negative for injury, pain, and swelling, Cardiovascular: Negative for palpitations, and edema, positive for discomfort Respiratory: Negative for shortness of breath, cough, wheezing, and pleuritic chest pain, Abdomen/GI: Negative for vomiting, diarrhea, and constipation, positive for abdominal pain and nausea Back: Negative for injury and pain, : Negative for injury, bleeding, discharge, and swelling, MS/Extremity: Negative for injury and deformity, Skin: Negative for injury, rash, and discoloration, Neuro: Negative for headache, weakness, numbness, tingling, and seizure, Psych: Negative for depression, positive for anxiety and emotional upset Allergy/Immunology: Negative for hives, rash, and allergies Endocrine: Negative for neck swelling, polydipsia, polyuria, polyphagia, and weight changes Hematologic/Lymphatic: Negative for swollen nodes, abnormal bleeding, and unusual bruising Exam: 02:57 Constitutional: This is a well developed, well nourished patient who is awake, alert, sp4 emotional upset on exam, crying on exam, anxious on exam. Head/Face: Normocephalic, atraumatic. Eyes: Pupils equal round and reactive to light, extra-ocular motions intact. Lids and lashes normal. Conjunctiva and sclera are not injected. Cornea within normal limits. Periorbital areas with no swelling, redness, or edema. ENT: Nares patent. No nasal discharge, no septal abnormalities noted. Tympanic membranes are normal and external auditory canals are clear. Oropharynx with no redness, swelling, or masses, exudates, or evidence of obstruction, uvula midline. Mucous membranes moist. Neck: Trachea midline, no thyromegaly or masses palpated, and no cervical lymphadenopathy. Supple, full range of motion without nuchal rigidity, or vertebral point tenderness. No Meningismus. Chest/axilla: Normal chest wall appearance and motion. Nontender with no deformity. No lesions are appreciated. Cardiovascular: Regular rate and rhythm with a normal S1 and S2. No gallops, murmurs, or rubs. Normal PMI, no JVD. No pulse deficits. Respiratory: Lungs have equal breath sounds bilaterally, clear to auscultation and percussion. No rales, rhonchi or wheezes noted. No increased work of breathing, no retractions or nasal flaring. Abdomen/GI: Soft, diffuse abdominal tenderness on exam, no guarding, no rigidity, no rebound, no peritoneal signs, normoactive bowel sounds Back: No spinal tenderness. No costovertebral tenderness. Skin: Warm, dry with normal turgor. Normal color with no rashes, no lesions, and no evidence of cellulitis. MS/ Extremity: Pulses equal, no cyanosis. Neurovascular intact. Full, normal range of motion. Neuro: Awake and alert, GCS 15, oriented to person, place, time, and situation. Cranial nerves II-XII grossly intact. Motor strength 5/5 in all extremities. Sensory grossly intact. Psych: Awake, alert, with orientation to person, place and time. Positive acute anxiety, irritable, crying on exam Vital Signs: 00:29 BP 140 / 90; Pulse 71; Resp 18; Temp 98.2(O); Pulse Ox 98% on R/A; Weight 89.5 kg (M); kl Height 5 ft. 9 in. ; Pain 8/10; 02:20 BP 132 / 92; Pulse 66; Resp 16; Pulse Ox 97% on R/A; jb4 03:11 BP 130 / 100; Pulse 62; Resp 18 S; Pulse Ox 100% on R/A; as6 00:29 Body Mass Index 29.14 (89.50 kg, 175.26 cm) kl 00:29 Pain Scale: Adult kl MDM: 00:38 Patient medically screened. sp4 02:57 Differential diagnosis: anxiety, cholecystitis, esophagitis, gastritis, pancreatitis. sp4 Data reviewed: vital signs, nurses notes, old medical records, lab test result(s), radiologic studies, CT scan. ED course: On presentation patient mostly complains of abdominal diffuse pain, visibly anxious on exam, lab work today is unremarkable, with no significant derangements, urinalysis unremarkable, abdominal CT with IV contrast reveals no acute abdominal findings, questionable mild distal esophageal wall thickening can be seen with esophagitis. Patient will be prescribed p.o. pantoprazole and discharged home, will advise management of anxiety with psychiatry. 10/04 00:38 Order name: CBC with Diff; Complete Time: 02:53 sp4 10/04 00:38 Order name: CMP; Complete Time: 02:53 sp4 10/04 00:38 Order name: Lipase; Complete Time: 02:53 sp4 10/04 00:38 Order name: Urinalysis w/ reflexes; Complete Time: 02:53 sp4 10/04 00:38 Order name: CT Abd/Pelvis - IV Contrast Only sp4 10/04 00:38 Order name: IV Saline Lock; Complete Time: 01:05 sp4 10/04 00:38 Order name: Labs collected and sent; Complete Time: 01:05 sp4 Administered Medications: 01:20 Drug: Ativan IVP 1 mg Route: IVP; Site: right antecubital; jb4 03:14 Follow up: Response: No adverse reaction as6 01:20 Drug: Ketorolac IVP 30 mg Route: IVP; Site: right antecubital; jb4 03:14 Follow up: Response: No adverse reaction as6 01:20 Drug: Ondansetron IVP 4 mg Route: IVP; Site: right antecubital; jb4 03:14 Follow up: Response: No adverse reaction as6 01:21 Drug: NS 0.9% IV 1000 ml Route: IV; Rate: 1 bolus; Site: right antecubital; jb4 03:15 Follow up: Response: No adverse reaction; IV Status: Completed infusion; IV Intake: as6 1000ml 01:21 Drug: morphine IVP or IV 4 mg Route: IVP; Infused Over: 4 mins; Site: right antecubital;jb4 03:15 Follow up: Response: No adverse reaction as6 Disposition Summary: 10/04/22 03:04 Discharge Ordered Location: Home sp4 Problem: new sp4 Symptoms: have improved sp4 Condition: Stable sp4 Diagnosis - Generalized anxiety disorder sp4 - Abdominal pain, Generalized sp4 - acid reflux, acute anxiety attack sp4 Followup: sp4 - With: Anthony Villanueva MD - When: 7 - 10 days - Reason: Recheck today's complaints Discharge Instructions: - Discharge Summary Sheet sp4 - Managing Anxiety, Adult sp4 Forms: - Thank You Letter sp4 Prescriptions: - Protonix 40 mg Oral Tablet - take 1 tablet by ORAL route once daily; 30 tablet; Refills: 0, Product sp4 Selection Permitted Signatures: Dispatcher [employer] Valery Rebolledo RN RN kl Bryson, James, RN RN jb4 Zac Galvan MD MD sp4 Jim Mata RN as6
--- NOTE | 2022-10-04 03:05 | ER ---
Nurse's Notes [facility] Name: Juan Campos Age: 46 yrs Sex: Male : 1975 Arrival Date: 10/04/2022 Time: 00:18 Bed 5 Private MD: Diagnosis: Generalized anxiety disorder;Abdominal pain, Generalized;acid reflux, acute anxiety attack Presentation: 10/04 00:29 Chief complaint: Patient states: chest pain abdominal pain off and on for a while pt kl seen here recently for anxiety and chest pain. Coronavirus screen: Vaccine status: Patient reports receiving the 2nd dose of the covid vaccine. Ebola Screen: Patient negative for fever greater than or equal to 101.5 degrees Fahrenheit, and additional compatible Ebola Virus Disease symptoms. Initial Sepsis Screen: Does the patient meet any 2 criteria? No. Patient's initial sepsis screen is negative. Does the patient have a suspected source of infection? No. Patient's initial sepsis screen is negative. Risk Assessment: Do you want to hurt yourself or someone else? Patient reports no desire to harm self or others. 00:29 Method Of Arrival: Ambulatory 00:29 Acuity: [place] 3 kl 03:15 Onset of symptoms is unknown. as6 Triage Assessment: 00:32 General: Appears distressed, uncomfortable, Behavior is anxious. Pain: Complains of kl pain in chest and abdomen. Cardiovascular: Reports chest pain. Historical: - Allergies: 00:31 No Known Allergies; kl - PMHx: 00:31 adhd; Anxiety; Bipolar disorder; kl - PSHx: 00:31 hernia; Vasectomy; kl - Immunization history:: Adult Immunizations not up to date. - Social history:: Smoking status: Patient denies any tobacco usage or history of. - Family history:: not pertinent. Screenin:12 [facility] ED Fall Risk Assessment (Adult) Score/Fall Risk Level 0 - 2 = Low Risk. Abuse as6 screen: Denies threats or abuse. Denies injuries from another. Nutritional screening: No deficits noted. Tuberculosis screening: No symptoms or risk factors identified. Assessment: 01:30 Reassessment: Patient appears in no apparent distress at this time. Patient and/or jb4 family updated on plan of care and expected duration. Pain level reassessed. Patient is alert, oriented x 3, equal unlabored respirations, skin warm/dry/pink. 02:20 Reassessment: Patient appears in no apparent distress at this time. Patient and/or jb4 family updated on plan of care and expected duration. Pain level reassessed. Patient is alert, oriented x 3, equal unlabored respirations, skin warm/dry/pink. 03:15 Pain: as6 Vital Signs: 00:29 BP 140 / 90; Pulse 71; Resp 18; Temp 98.2(O); Pulse Ox 98% on R/A; Weight 89.5 kg (M); kl Height 5 ft. 9 in. ; Pain 8/10; 02:20 BP 132 / 92; Pulse 66; Resp 16; Pulse Ox 97% on R/A; jb4 03:11 BP 130 / 100; Pulse 62; Resp 18 S; Pulse Ox 100% on R/A; as6 00:29 Body Mass Index 29.14 (89.50 kg, 175.26 cm) kl 00:29 Pain Scale: Adult ED Course: 00:21 Patient arrived in ED. mr 00:31 Zac Galvan MD is Attending Physician. sp4 00:31 Triage completed. kl 01:00 Inserted saline lock: 20 gauge in right antecubital area, using aseptic technique. as6 Blood collected. 01:05 CBC with Diff Sent. as6 01:05 CMP Sent. as6 01:05 Lipase Sent. as6 01:05 Urinalysis w/ reflexes Sent. as6 01:05 Arm band placed on. as6 02:07 CT Abd/Pelvis - IV Contrast Only In Process Unspecified. EDMS 03:03 Anthony Villanueva MD is Referral Physician. sp4 03:15 No provider procedures requiring assistance completed. IV discontinued, intact, as6 bleeding controlled, No redness/swelling at site. Pressure dressing applied. 03:15 Bed in low position. Call light in reach. Side rails up X 1. as6 Administered Medications: 01:20 Drug: Ativan IVP 1 mg Route: IVP; Site: right antecubital; jb4 03:14 Follow up: Response: No adverse reaction as6 01:20 Drug: Ketorolac IVP 30 mg Route: IVP; Site: right antecubital; jb4 03:14 Follow up: Response: No adverse reaction as6 01:20 Drug: Ondansetron IVP 4 mg Route: IVP; Site: right antecubital; jb4 03:14 Follow up: Response: No adverse reaction as6 01:21 Drug: NS 0.9% IV 1000 ml Route: IV; Rate: 1 bolus; Site: right antecubital; jb4 03:15 Follow up: Response: No adverse reaction; IV Status: Completed infusion; IV Intake: as6 1000ml 01:21 Drug: morphine IVP or IV 4 mg Route: IVP; Infused Over: 4 mins; Site: right antecubital;jb4 03:15 Follow up: Response: No adverse reaction as6 Medication: 03:15 VIS not applicable for this client. as6 Intake: 03:15 IV: 1000ml; Total: 1000ml. as6 Outcome: 03:04 Discharge ordered by . sp4 03:15 Discharged to home ambulatory. as6 03:15 Condition: stable 03:15 Discharge instructions given to patient, Instructed on discharge instructions, follow up and referral plans. medication usage, Demonstrated understanding of instructions, follow-up care, medications, Prescriptions given X 1. 03:16 Patient left the ED. as6 Signatures: Dispatcher [employer] EDMS Valery Lozano RN RN kl Rivera, Mary mr Bryson, James, RN RN jb4 Slawson, Ashby, RN RN as6 Zac aGlvan MD MD sp4
[2022-10-04 03:38] VITALS: TEMP 98.2
[2022-10-04 03:45] VITALS: BP 130/100; O2SAT 100
--- NOTE | 2022-10-04 13:49 | RAD REPORT ---
EXAM DESCRIPTION: CT - Abdomen Pelvis W Contrast - 10/04/2022 6:37 am CLINICAL HISTORY: 46 years Male ABD PAIN COMPARISON: CT abdomen pelvis 04/26/2022 TECHNIQUE: CT of the abdomen and pelvis with intravenous contrast. All CT scans at this facility use dose modulation, iterative reconstruction, and/or weight based dosi ng when appropriate to reduce radiation dose to as low as reasonably achievable. FINDINGS: Lower thorax: Mild bibasilar atelectasis. Questionable mild distal esophageal wall thickening. Abdomen: Stomach: Within normal limits Liver: Right hepatic lobe hypodensity measuring up to 2.5 cm, likely cyst. Additional multiple scatte red subcentimeter hypodensities, too small to characterize. No intrahepatic ductal distention. Gallbladder: Nondistended Pancreas: Within normal limits Spleen: Ovoid hypodensity measuring 1.7 cm, likely cyst. Right kidney: No hydronephrosis. No focal lesion. Left kidney: No hydronephrosis. Multiple hypodensities, largest measuring up to 1.3 cm, likely cysts. Adrenal glands: Within normal limits Vascular structures: Within normal limits Nodes: No lymphadenopathy by size criteria Pelvis: Small bowel: No significant distention. Appendix: Within normal limits Colon: No distention or acute pericolonic edema. Peritoneum: No free intraperitoneal fluid or air. Bones: No acute bone findings. Bladder: Unremarkable. Reproductive organs: No acute findings. IMPRESSION: 1. No acute abdominopelvic findings. 2. Questionable mild distal esophageal wall thickening, can be seen in setting of esophagitis. Plea se correlate with clinical presentation. Electronically signed by: Suni Castro MD 10/04/2022 2:18 AM CDT Due to temporary technical issues with the PACS/Fluency reporting system, reports are being signed by the in house radiologist without review as a courtesy to ensure prompt reporting. The interpreting r adiologist is fully responsible for the content of the report.
== END 2022-10-04 03:16 | disposition home or self-care (01) ==
LOC: ER 00:18
DX: F41.1 Generalized anxiety disorder (principal); R10.84 Generalized abdominal pain; K21.9 Gastro-esophageal reflux disease without esophagitis
CPT/HCPCS: 96361; 85025; 36415; 81003; 83690; 80053; 74177; 96375; 96374; 99284; Q9967; J2405; J7030

== ENCOUNTER 2022-10-08 04:23 | Emergency (ER) | payer OTHER ==
--- OUTSIDE RECORDS SUMMARY | 2022-10-08 04:29 | XMS REPORT | Continuity of Care Document ---
:1975 Author Organization [facility] t Address [address] [place] [address] Care Team Providers Name Role Phone Jluis Ferrell Primary Care Physician PIOTR CHANG Attending Clinician Unavailable Piotr Chang MD Attending Clinician Gabrielle Forman RN Attending Clinician Unavailable Doctor Unassigned, [place] Attending Clinician Unavailable Jluis Ferrell Attending Clinician JLUIS WHELAN Attending Clinician Unavailable Lab, Ang - Db Attending Clinician Unavailable BRAN RED Attending Clinician Unavailable Bran Red DO Attending Clinician Bebeto Woody Attending Clinician PIOTR CHANG Admitting Clinician Unavailable BRAN RED Admitting Clinician Unavailable Payers Payer Name Policy Type Policy Number Effective Date Expiration Date S lawrence PHCS GENERIC [id number] 2022 00:00:00 [place]ICAID OF [place] [id number] 2021 00:00:00 [facility] [id number] 2014 MEDICAID 00:00:00 Problems Condition Condition Condition Status Onset Resolution Last Treating Co mments Source Name Details Category Date Date Treatment Clinician Date Esophageal Esophageal Disease Active Overview : Univers dysphagia dysphagia 3-08 Formattin i ty of 00:00: g of this [place] 00 note Medical might be Branch different from the original. Added automatic ally from request for surgery [id number] Abdominal Abdominal Disease Active Overview: Univers pain, pain, 3-08 Formattin ity of unspecifie unspecifie 00:00: g of this [place] d d 00 note Medical abdominal abdominal might be Br anch location location different from the original. Added automatic ally from request for surgery [id number] Wellness Wellness Disease Active Unive rs examinatio examinatio 2-13 it y of n n 00:00: [place] 00 Medical Branch Need for Need for Disease Active Unive rs hepatitis hepatitis 2-13 ity of C C 00:00: [place] screening screening 00 Medi faina test test Branch Need for Need for Disease Active Unive rs vaccinatio vaccinatio 2-13 it y of n n 00:00: [place] 00 Medical Branch Bipolar Bipolar Disease Active Overview: Univ ers disorder disorder Formattin ity of g of this [place] note Medical might be Branch different from the original. 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 Paresthesi Paresthes Problem Active 2018-12-15 Memoria [...] 2022-09-15 Not sure University SARS-CoV-2 00:00:00 11:05:00 [place] Medical (event) Branch Alcohol intake 2022-08-09 2022-08-09 Current University of 00:00:00 00:00:00 non-drinker of [place] Medi faina alcohol (finding) Branch Tobacco use and 2022-07-19 2022-07-19 Smokeless tobacco Un iversity of exposure 00:00:00 00:00:00 non-user [facility] Tobacco Comment 2022-07-19 2022-07-19 Second hand smoke Un iversity of 00:00:00 00:00:00 [facility] Sex [birth year] At [birth year] Universit y of 00:00:00 00:00:00 [facility] Smoking Status Start Date Stop Date Source Never smoked tobacco [facility] Social History [facility] [place] [facility] Medications Ordered Filled Start Stop Current Ordering Indication Dosage Frequency Signature Comments Components Source Medication Medication Date Date Medication? Clinician (SIG) Name Name CALCIUM Yes Take by Univers CARBONATE 4-12 mouth. ity of (CALCIUM 11:03: [place] 500 ORAL) 23 [facility] CALCIUM Yes Take by Univers CARBONATE 4-12 mouth. ity of (CALCIUM 11:03: [place] 500 ORAL) 23 [facility] CALCIUM Yes Take by Univers CARBONATE 4-12 mouth. ity of (CALCIUM 11:03: [place] 500 ORAL) 23 [facility] CALCIUM Yes Take by Univers CARBONATE 4-12 mouth. ity of (CALCIUM 11:03: [place] 500 ORAL) 23 [facility] CALCIUM Yes Take by Univers CARBONATE 4-12 mouth. ity of (CALCIUM 11:03: [place] 500 ORAL) 23 [facility] CALCIUM Yes Take by Univers CARBONATE 4-12 mouth. ity of (CALCIUM 11:03: [place] 500 ORAL) 23 [facility] CALCIUM Yes Take by Univers CARBONATE 4-12 mouth. ity of (CALCIUM 11:03: [place] 500 ORAL) 23 [facility] sodium,pota 2022- Yes 117mL Take 117 Univers ssium,mag 3-07 03-08 mL by ity of sulfates 00:00: 05:59 [place] 17.5-3.13-1 00 :00 now for 1 Med ical .6 gram dose. Branch CALCIUM Yes Take by Univers CARBONATE 2-13 mouth. ity of (CALCIUM 14:04: [place] 500 ORAL) 49 [facility] CALCIUM Yes Take by Univers CARBONATE 2-13 mouth. ity of (CALCIUM 14:04: [place] 500 ORAL) 49 [facility] CALCIUM Yes Take by Univers CARBONATE 2-13 mouth. ity of (CALCIUM 14:04: [place] 500 ORAL) 49 Medical Branch CALCIUM Yes Take by Univers CARBONATE 2-13 mouth. ity of (CALCIUM 14:04: [place] 500 ORAL) 49 [facility] Branch CALCIUM Yes Take by Univers CARBONATE 2-13 mouth. ity of (CALCIUM 14:04: [place] 500 ORAL) 49 Medical Branch CALCIUM Yes Take by Univers CARBONATE 2-13 mouth. ity of (CALCIUM 14:04: [place] 500 ORAL) 49 [facility] Branch CALCIUM Yes Take by Univers CARBONATE 2-13 mouth. ity of (CALCIUM 14:04: [place] 500 ORAL) 49 [facility] Branch CALCIUM Yes Take by Univers CARBONATE 2-13 mouth. ity of (CALCIUM 14:04: [place] 500 ORAL) 49 [facility] Branch CALCIUM Yes Take by Univers CARBONATE 2-13 mouth. ity of (CALCIUM 14:04: [place] 500 ORAL) 49 [facility] Branch CALCIUM Yes Take by Univers CARBONATE 2-13 mouth. ity of (CALCIUM 14:04: [place] 500 ORAL) 49 [facility] Branch iopamidol 2020-06- No [id number] 120mL 120 mL, Univers (ISOVUE 06-27 Intravenou ity o f 370-500 mL) 17:15: 16:04 s, ONCE, 1 [place] injection 00 :00 dose, On Medica l 120 mL [facility] 04/27/21 at 1115, Routine ondansetron 2020-06- No 4mg 4 mg, Slow Univers (ZOFRAN 06-27 IV Push, ity of (PF)) 16:45: 15:45 ONCE, 1 [place] injection 4 00 :00 dose, On Medi faina mg [facility] 04/27/21 at 1045, Routine sucralfate 2020-06 Yes [id number] 1g Take 1 U nivers 1 gram - tablet by ity of tablet 00:00: mouth [place] 00 before Medical meals and Branch at bedtime. dicyclomine 2020-06 Yes [id number] 10mg Take 1 Univers (BENTYL) 10 - capsule by it y of mg capsule 00:00: mouth [place] 00 every 8 Medical (eight) Branch hours as needed for Abdominal pain. ondansetron 2020-06 Yes [id number] 4mg Take 1 Univers 4 mg 1-22 tablet by ity of disintegrat 00:00: mouth [place] ing tablet 00 every 8 Medica l (eight) Branch hours as needed for Nausea and Vomiting (N/V). sucralfate 2020-06 Yes [id number] 1g Take 1 U nivers 1 gram 1-22 tablet by ity of tablet 00:00: mouth [place] 00 before Medical meals and Branch at bedtime. dicyclomine 2020-06 Yes [id number] 10mg Take 1 Univers (BENTYL) 10 1-22 capsule by it y of mg capsule 00:00: mouth [place] 00 every 8 Medical (eight) Branch hours as needed for Abdominal pain. ondansetron 2020-06 Yes [id number] 4mg Take 1 Univers 4 mg 1-22 tablet by ity of disintegrat 00:00: mouth [place] ing tablet 00 every 8 Medica l (eight) Branch hours as needed for Nausea and Vomiting (N/V). sucralfate 2020-06 Yes [id number] 1g Take 1 U nivers 1 gram 1-22 tablet by ity of tablet 00:00: mouth [place] 00 before Medical meals and Branch at bedtime. dicyclomine 2020-06 Yes [id number] 10mg Take 1 Univers (BENTYL) 10 1-22 capsule by it y of mg capsule 00:00: mouth [place] 00 every 8 Medical (eight) Branch hours as needed for Abdominal pain. ondansetron 2020-06 Yes [id number] 4mg Take 1 Univers 4 mg 1-22 tablet by ity of disintegrat 00:00: mouth [place] ing tablet 00 every 8 Medica l (eight) Branch hours as needed for Nausea and Vomiting (N/V). sucralfate 2020-06 Yes [id number] 1g Take 1 U nivers 1 gram 1-22 tablet by ity of tablet 00:00: mouth [place] 00 before Medical meals and Branch at bedtime. dicyclomine 2020-06 Yes [id number] 10mg Take 1 Univers (BENTYL) 10 1-22 capsule by it y of mg capsule 00:00: mouth [place] 00 every 8 Medical (eight) Branch hours as needed for Abdominal pain. ondansetron 2020-06 Yes [id number] 4mg Take 1 Univers 4 mg 1-22 tablet by ity of disintegrat 00:00: mouth [place] ing tablet 00 every 8 Medica l (eight) Branch hours as needed for Nausea and Vomiting (N/V). sucralfate 2020-06 Yes [id number] 1g Take 1 U nivers 1 gram 1-22 tablet by ity of tablet 00:00: mouth [place] 00 before Medical meals and Branch at bedtime. dicyclomine 2020-06 Yes [id number] 10mg Take 1 Univers (BENTYL) 10 1-22 capsule by it y of mg capsule 00:00: mouth [place] 00 every 8 Medical (eight) Branch hours as needed for Abdominal pain. ondansetron 2020-06 Yes [id number] 4mg Take 1 Univers 4 mg 1-22 tablet by ity of disintegrat 00:00: mouth [place] ing tablet 00 every 8 Medica l (eight) Branch hours as needed for Nausea and Vomiting (N/V). sucralfate 2020-06 Yes [id number] 1g Take 1 U nivers 1 gram 1-22 tablet by ity of tablet 00:00: mouth [place] 00 before Medical meals and Branch at bedtime. dicyclomine 2020-06 Yes [id number] 10mg Take 1 Univers (BENTYL) 10 1-22 capsule by it y of mg capsule 00:00: mouth [place] 00 every 8 Medical (eight) Branch hours as needed for Abdominal pain. ondansetron 2020-06 Yes [id number] 4mg Take 1 Univers 4 mg 1-22 tablet by ity of disintegrat 00:00: mouth [place] ing tablet 00 every 8 Medica l (eight) Branch hours as needed for Nausea and Vomiting (N/V). sucralfate 2020-06 Yes [id number] 1g Take 1 U nivers 1 gram 1-22 tablet by ity of tablet 00:00: mouth [place] 00 before Medical meals and Branch at bedtime. dicyclomine 2020-06 Yes [id number] 10mg Take 1 Univers (BENTYL) 10 1-22 capsule by it y of mg capsule 00:00: mouth [place] 00 every 8 Medical (eight) Branch hours as needed for Abdominal pain. ondansetron 2020-06 Yes [id number] 4mg Take 1 Univers 4 mg 1-22 tablet by ity of disintegrat 00:00: mouth [place] ing tablet 00 every 8 Medica l (eight) Branch hours as needed for Nausea and Vomiting (N/V). sucralfate 2020-06 Yes [id number] 1g Take 1 U nivers 1 gram 1-22 tablet by ity of tablet 00:00: mouth [place] 00 before Medical meals and Branch at bedtime. dicyclomine 2020-06 Yes [id number] 10mg Take 1 Univers (BENTYL) 10 1-22 capsule by it y of mg capsule 00:00: mouth [place] 00 every 8 Medical (eight) Branch hours as needed for Abdominal pain. ondansetron 2020-06 Yes [id number] 4mg Take 1 Univers 4 mg 1-22 tablet by ity of disintegrat 00:00: mouth [place] ing tablet 00 every 8 Medica l (eight) Branch hours as needed for Nausea and Vomiting (N/V). sucralfate 2020-06 Yes [id number] 1g Take 1 U nivers 1 gram 1-22 tablet by ity of tablet 00:00: mouth [place] 00 before Medical meals and Branch at bedtime. dicyclomine 2020-06 Yes [id number] 10mg Take 1 Univers (BENTYL) 10 1-22 capsule by it y of mg capsule 00:00: mouth [place] 00 every 8 Medical (eight) Branch hours as needed for Abdominal pain. ondansetron 2020-06 Yes [id number] 4mg Take 1 Univers 4 mg 1-22 tablet by ity of disintegrat 00:00: mouth [place] ing tablet 00 every 8 Medica l (eight) Branch hours as needed for Nausea and Vomiting (N/V). sucralfate 2020-06 Yes [id number] 1g Take 1 U nivers 1 gram 1-22 tablet by ity of tablet 00:00: mouth [place] 00 before Medical meals and Branch at bedtime. sucralfate 2020-06 Yes [id number] 1g Take 1 U nivers 1 gram 1-22 tablet by ity of tablet 00:00: mouth [place] 00 before Medical meals and Branch at bedtime. dicyclomine 2020-06 Yes [id number] 10mg Take 1 Univers (BENTYL) 10 1-22 capsule by it y of mg capsule 00:00: mouth [place] 00 every 8 Medical (eight) Branch hours as needed for Abdominal pain. ondansetron 2020-06 Yes [id number] 4mg Take 1 Univers 4 mg 1-22 tablet by ity of disintegrat 00:00: mouth [place] ing tablet 00 every 8 Medica l (eight) Branch hours as needed for Nausea and Vomiting (N/V). dicyclomine 2020-06 Yes [id number] 10mg Take 1 Univers (BENTYL) 10 1-22 capsule by it y of mg capsule 00:00: mouth [place] 00 every 8 Medical (eight) Branch hours as needed for Abdominal pain. sucralfate 2020-06 Yes [id number] 1g Take 1 U nivers 1 gram 1-22 tablet by ity of tablet 00:00: mouth [place] 00 before Medical meals and Branch at bedtime. dicyclomine 2020-06 Yes [id number] 10mg Take 1 Univers (BENTYL) 10 1-22 capsule by it y of mg capsule 00:00: mouth [place] 00 every 8 Medical (eight) Branch hours as needed for Abdominal pain. ondansetron 2020-06 Yes [id number] 4mg Take 1 Univers 4 mg 1-22 tablet by ity of disintegrat 00:00: mouth [place] ing tablet 00 every 8 Medica l (eight) Branch hours as needed for Nausea and Vomiting (N/V). ondansetron 2020-06 Yes [id number] 4mg Take 1 Univers 4 mg 1-22 tablet by ity of disintegrat 00:00: mouth [place] ing tablet 00 every 8 Medica l (eight) Branch hours as needed for Nausea and Vomiting (N/V). sucralfate 2020-06 Yes [id number] 1g Take 1 U nivers 1 gram 1-22 tablet by ity of tablet 00:00: mouth [place] 00 before Medical meals and Branch at bedtime. dicyclomine 2020-06 Yes [id number] 10mg Take 1 Univers (BENTYL) 10 1-22 capsule by it y of mg capsule 00:00: mouth [place] 00 every 8 Medical (eight) Branch hours as needed for Abdominal pain. ondansetron 2020-06 Yes [id number] 4mg Take 1 Univers 4 mg 1-22 tablet by ity of disintegrat 00:00: mouth [place] ing tablet 00 every 8 Medica l (eight) Branch hours as needed for Nausea and Vomiting (N/V). sucralfate 2020-06 Yes [id number] 1g Take 1 U nivers 1 gram 1-22 tablet by ity of tablet 00:00: mouth [place] 00 before Medical meals and Branch at bedtime. dicyclomine 2020-06 Yes [id number] 10mg Take 1 Univers (BENTYL) 10 1-22 capsule by it y of mg capsule 00:00: mouth [place] 00 every 8 Medical (eight) Branch hours as needed for Abdominal pain. ondansetron 2020-06 Yes [id number] 4mg Take 1 Univers 4 mg 1-22 tablet by ity of disintegrat 00:00: mouth [place] ing tablet 00 every 8 Medica l (eight) Branch hours as needed for Nausea and Vomiting (N/V). sucralfate 2020-06 Yes [id number] 1g Take 1 U nivers 1 gram 1-22 tablet by ity of tablet 00:00: mouth [place] 00 before Medical meals and Branch at bedtime. dicyclomine 2020-06 Yes [id number] 10mg Take 1 Univers (BENTYL) 10 1-22 capsule by it y of mg capsule 00:00: mouth [place] 00 every 8 Medical (eight) Branch hours as needed for Abdominal pain. ondansetron 2020-06 Yes [id number] 4mg Take 1 Univers 4 mg 1-22 tablet by ity of disintegrat 00:00: mouth [place] ing tablet 00 every 8 Medica l (eight) Branch hours as needed for Nausea and Vomiting (N/V). sucralfate 2020-06 Yes [id number] 1g Take 1 U nivers 1 gram 1-22 tablet by ity of tablet 00:00: mouth [place] 00 before Medical meals and Branch at bedtime. dicyclomine 2020-06 Yes [id number] 10mg Take 1 Univers (BENTYL) 10 1-22 capsule by it y of mg capsule 00:00: mouth [place] 00 every 8 Medical (eight) Branch hours as needed for Abdominal pain. ondansetron 2020-06 Yes [id number] 4mg Take 1 Univers 4 mg 1-22 tablet by ity of disintegrat 00:00: mouth [place] ing tablet 00 every 8 Medica l (eight) Branch hours as needed for Nausea and Vomiting (N/V). sucralfate 2020-06 Yes [id number] 1g Take 1 U nivers 1 gram 1-22 tablet by ity of tablet 00:00: mouth [place] 00 before Medical meals and Branch at bedtime. dicyclomine 2020-06 Yes [id number] 10mg Take 1 Univers (BENTYL) 10 1-22 capsule by it y of mg capsule 00:00: mouth [place] 00 every 8 Medical (eight) Branch hours as needed for Abdominal pain. ondansetron 2020-06 Yes [id number] 4mg Take 1 Univers 4 mg 1-22 tablet by ity of disintegrat 00:00: mouth [place] ing tablet 00 every 8 Medica l (eight) Branch hours as needed for Nausea and Vomiting (N/V). sucralfate 2020-06 Yes [id number] 1g Take 1 U nivers 1 gram 1-22 tablet by ity of tablet 00:00: mouth [place] 00 before Medical meals and Branch at bedtime. dicyclomine 2020-06 Yes [id number] 10mg Take 1 Univers (BENTYL) 10 1-22 capsule by it y of mg capsule 00:00: mouth [place] 00 every 8 Medical (eight) Branch hours as needed for Abdominal pain. ondansetron 2020-06 Yes [id number] 4mg Take 1 Univers 4 mg 1-22 tablet by ity of disintegrat 00:00: mouth [place] ing tablet 00 every 8 Medica l (eight) Branch hours as needed for Nausea and Vomiting (N/V). sucralfate 2020-06 Yes [id number] 1g Take 1 U nivers 1 gram 1-22 tablet by ity of tablet 00:00: mouth [place] 00 before Medical meals and Branch at bedtime. dicyclomine 2020-06 Yes [id number] 10mg Take 1 Univers (BENTYL) 10 1-22 capsule by it y of mg capsule 00:00: mouth [place] 00 every 8 Medical (eight) Branch hours as needed for Abdominal pain. ondansetron 2020-06 Yes [id number] 4mg Take 1 Univers 4 mg 1-22 tablet by ity of disintegrat 00:00: mouth [place] ing tablet 00 every 8 Medica l (eight) Branch hours as needed for Nausea and Vomiting (N/V). omeprazole 2020-06 No [id number] 20mg Take 1 Univers 20 mg 1-22 12-23 capsule by ity of capsule 00:00: 05:59 mouth [place] 00 :00 daily for Medical 30 days. Branch nystatin 2019-0 Yes [id number] Take 5 mL Univers 100,000 1-25 by mouth 4 ity of unit/mL 00:00: (four) [place] suspension 00 times Medical daily. Branch ondansetron 2019-0 Yes [id number] 4mg Take 1 Univers 4 mg tablet 1-25 tablet by ity of 00:00: mouth [place] 00 every 8 Medical (eight) Branch hours as needed for Nausea and Vomiting (N/V). nystatin 2019-0 Yes [id number] Take 5 mL Univers 100,000 1-25 by mouth 4 ity of unit/mL 00:00: (four) [place] suspension 00 times Medical daily. Branch ondansetron 2019-0 Yes [id number] 4mg Take 1 Univers 4 mg tablet 1-25 tablet by ity of 00:00: mouth [place] 00 every 8 Medical (eight) Branch hours as needed for Nausea and Vomiting (N/V). nystatin 2019-0 Yes [id number] Take 5 mL Univers 100,000 1-25 by mouth 4 ity of unit/mL 00:00: (four) [place] suspension 00 times Medical daily. Branch ondansetron 2019-0 Yes [id number] 4mg Take 1 Univers 4 mg tablet 1-25 tablet by ity of 00:00: mouth [place] 00 every 8 Medical (eight) Branch hours as needed for Nausea and Vomiting (N/V). nystatin 2019-0 Yes [id number] Take 5 mL Univers 100,000 1-25 by mouth 4 ity of unit/mL 00:00: (four) [place] suspension 00 times Medical daily. Branch ondansetron 2019-0 Yes [id number] 4mg Take 1 Univers 4 mg tablet 1-25 tablet by ity of 00:00: mouth [place] 00 every 8 Medical (eight) Branch hours as needed for Nausea and Vomiting (N/V). nystatin 2019-0 Yes [id number] Take 5 mL Univers 100,000 1-25 by mouth 4 ity of unit/mL 00:00: (four) [place] suspension 00 times Medical daily. Branch ondansetron 2019-0 Yes [id number] 4mg Take 1 Univers 4 mg tablet 1-25 tablet by ity of 00:00: mouth [place] 00 every 8 Medical (eight) Branch hours as needed for Nausea and Vomiting (N/V). nystatin 2019-0 Yes [id number] Take 5 mL Univers 100,000 1-25 by mouth 4 ity of unit/mL 00:00: (four) [place] suspension 00 times Medical daily. Branch ondansetron 2019-0 Yes [id number] 4mg Take 1 Univers 4 mg tablet 1-25 tablet by ity of 00:00: mouth [place] 00 every 8 Medical (eight) Branch hours as needed for Nausea and Vomiting (N/V). nystatin 2019-0 Yes [id number] Take 5 mL Univers 100,000 1-25 by mouth 4 ity of unit/mL 00:00: (four) [place] suspension 00 times Medical daily. Branch ondansetron 2019-0 Yes [id number] 4mg Take 1 Univers 4 mg tablet 1-25 tablet by ity of 00:00: mouth [place] 00 every 8 Medical (eight) Branch hours as needed for Nausea and Vomiting (N/V). nystatin 2019-0 Yes [id number] Take 5 mL Univers 100,000 1-25 by mouth 4 ity of unit/mL 00:00: (four) [place] suspension 00 times Medical daily. Branch ondansetron 2019-0 Yes [id number] 4mg Take 1 Univers 4 mg tablet 1-25 tablet by ity of 00:00: mouth [place] 00 every 8 Medical (eight) Branch hours as needed for Nausea and Vomiting (N/V). nystatin 2019-0 Yes [id number] Take 5 mL Univers 100,000 1-25 by mouth 4 ity of unit/mL 00:00: (four) [place] suspension 00 times Medical daily. Branch nystatin 2019-0 Yes [id number] Take 5 mL Univers 100,000 1-25 by mouth 4 ity of unit/mL 00:00: (four) [place] suspension 00 times Medical daily. Branch ondansetron 2019-0 Yes [id number] 4mg Take 1 Univers 4 mg tablet 1-25 tablet by ity of 00:00: mouth [place] 00 every 8 Medical (eight) Branch hours as needed for Nausea and Vomiting (N/V). ondansetron 2019-0 Yes [id number] 4mg Take 1 Univers 4 mg tablet 1-25 tablet by ity of 00:00: mouth [place] 00 every 8 Medical (eight) Branch hours as needed for Nausea and Vomiting (N/V). nystatin 2019-0 Yes [id number] Take 5 mL Univers 100,000 1-25 by mouth 4 ity of unit/mL 00:00: (four) [place] suspension 00 times Medical daily. Branch ondansetron 2019-0 Yes [id number] 4mg Take 1 Univers 4 mg tablet 1-25 tablet by ity of 00:00: mouth [place] 00 every 8 Medical (eight) Branch hours as needed for Nausea and Vomiting (N/V). nystatin 2019-0 Yes [id number] Take 5 mL Univers 100,000 1-25 by mouth 4 ity of unit/mL 00:00: (four) [place] suspension 00 times Medical daily. Branch ondansetron 2019-0 Yes [id number] 4mg Take 1 Univers 4 mg tablet 1-25 tablet by ity of 00:00: mouth [place] 00 every 8 Medical (eight) Branch hours as needed for Nausea and Vomiting (N/V). nystatin 2019-0 Yes [id number] Take 5 mL Univers 100,000 1-25 by mouth 4 ity of unit/mL 00:00: (four) [place] suspension 00 times Medical daily. Branch ondansetron 2019-0 Yes [id number] 4mg Take 1 Univers 4 mg tablet 1-25 tablet by ity of 00:00: mouth [place] 00 every 8 Medical (eight) Branch hours as needed for Nausea and Vomiting (N/V). nystatin 2019-0 Yes [id number] Take 5 mL Univers 100,000 1-25 by mouth 4 ity of unit/mL 00:00: (four) [place] suspension 00 times Medical daily. Branch ondansetron 2019-0 Yes [id number] 4mg Take 1 Univers 4 mg tablet 1-25 tablet by ity of 00:00: mouth [place] 00 every 8 Medical (eight) Branch hours as needed for Nausea and Vomiting (N/V). nystatin 2019-0 Yes [id number] Take 5 mL Univers 100,000 1-25 by mouth 4 ity of unit/mL 00:00: (four) [place] suspension 00 times Medical daily. Branch ondansetron 2019-0 Yes [id number] 4mg Take 1 Univers 4 mg tablet 1-25 tablet by ity of 00:00: mouth [place] 00 every 8 Medical (eight) Branch hours as needed for Nausea and Vomiting (N/V). nystatin 2019-0 Yes [id number] Take 5 mL Univers 100,000 1-25 by mouth 4 ity of unit/mL 00:00: (four) [place] suspension 00 times Medical daily. Branch ondansetron 2019-0 Yes [id number] 4mg Take 1 Univers 4 mg tablet 1-25 tablet by ity of 00:00: mouth [place] 00 every 8 Medical (eight) Branch hours as needed for Nausea and Vomiting (N/V). nystatin 2019-0 Yes [id number] Take 5 mL [facility] 100,000 1-25 by mouth 4 ity of unit/mL 00:00: (four) [place] suspension 00 times Medical daily. Branch ondansetron 2019-0 Yes [id number] 4mg Take 1 Univers 4 mg tablet 1-25 tablet by ity of 00:00: mouth [place] 00 every 8 Medical (eight) Branch hours as needed for Nausea and Vomiting (N/V). nystatin 2019-0 Yes [id number] Take 5 mL [facility] 100,000 1-25 by mouth 4 ity of unit/mL 00:00: (four) [place] suspension 00 times Medical daily. Branch ondansetron 2019-0 Yes [id number] 4mg Take 1 [facility] 4 mg tablet 1-25 tablet by ity of 00:00: mouth [place] 00 every 8 Medical (eight) Branch hours as needed for Nausea and Vomiting (N/V). nystatin 2019-0 Yes [id number] Take 5 mL [facility] 100,000 1-25 by mouth 4 ity of unit/mL 00:00: (four) [place] suspension 00 times Medical daily. Branch ondansetron 2018-0 Yes [id number] 4mg Take 1 Univers 4 mg tablet [...] tab, PO, l tablet 15:33: Q12H, 0 [place] 00 Refill(s) Famotidine 2017-06 No 20 mg = 1 Me moria 0-11 tab, PO, l 15:33: Q12H, 0 [place] 00 Refill(s) Ciprofloxac 2017-06 No 500 mg, Mem oria in 0-11 PO, Q12H, l 15:33: 0 [place] 00 Refill(s) hydrOXYzine 2017-06 No 25 mg, [...] 0-11 tab, PO, l 15:33: Q12H, 0 [place] 00 Refill(s) Ciprofloxac 2017-06 No 500 mg, Mem oria in 0-11 PO, Q12H, l 15:33: 0 [place] 00 Refill(s) hydrOXYzine 2017-06 No 25 mg, PO, Memoria hydrochlori 0-11 Q6H, 0 l de 15:33: Refill(s) Metronidazo 2017-06 No 500 mg = 1 Memoria le 0-11 tab, PO, l 15:33: Q6H, 0 [place] 00 Refill(s) Omeprazole 2017-06 No 40 mg, [...] 0-11 tab, PO, l 15:33: Q12H, 0 [place] 00 Refill(s) Ciprofloxac 2017-06 No 500 mg, Mem oria in 0-11 PO, Q12H, l 15:33: 0 [place] 00 Refill(s) hydrOXYzine 2017-06 No 25 mg, [...] tab, PO, l tablet 15:33: Q12H, 0 [place] 00 Refill(s) Famotidine 2017-06 No 20 mg = 1 Me moria 0-11 tab, PO, l 15:33: Q12H, 0 [place] 00 Refill(s) Ciprofloxac 2017-06 No 500 mg, Mem oria in 0-11 PO, Q12H, l 15:33: 0 [place] 00 Refill(s) hydrOXYzine 2017-06 No 25 mg, [...] tab, PO, l tablet 15:33: Q12H, 0 [place] 00 Refill(s) Famotidine 2017-06 No 20 mg [...] tab, PO, l tablet 15:33: Q12H, 0 Morgan 00 Refill(s) Famotidine 2017-06 No 20 mg = 1 Me moria 0-11 tab, PO, l 15:33: Q12H, 0 Morgan 00 Refill(s) Ciprofloxac 2017-06 No 500 mg, Mem oria in 0-11 PO, Q12H, l 15:33: 0 Morgan 00 Refill(s) Metronidazo 2017-06 No 500 mg = 1 Memoria le 0-11 tab, PO, l 15:33: Q6H, 0 Morgan 00 Refill(s) hydrOXYzine 2017-06 No 25 mg, PO, Memoria hydrochlori 0-11 Q6H, 0 l de 15:33: Refill(s) Omeprazole 2017-06 No 40 mg, PO, M emoria 0-11 Daily, 0 l 15:33: Refill(s) Dicyclomine 2017-06 No 20 mg, PO, Memoria 0-11 Q6H, 0 l 15:33: Refill(s) ondansetron 2017-06 No 4 mg = 1 Me moria 4 mg oral 0-11 tab, PO, l tablet 15:33: Q12H, 0 Morgan Refill(s) Famotidine 2017-06 No 20 mg = 1 Me moria 0-11 tab, PO, l 15:33: Q12H, 0 Morgan Refill(s) Ciprofloxac 2017-06 No 500 mg, Mem oria in 0-11 PO, Q12H, l 15:33: 0 Morgan 00 Refill(s) hydrOXYzine 2017-06 No 25 mg, [...] tab, PO, l tablet 15:33: Q12H, 0 Morgan Refill(s) Famotidine 2017-06 No 20 mg = 1 Me moria 0-11 tab, PO, l 15:33: Q12H, 0 Morgan Refill(s) Ciprofloxac 2017-06 No 500 mg, Mem oria in 0-11 PO, Q12H, l 15:33: 0 Morgan 00 Refill(s) hydrOXYzine 2017-06 No 25 mg, PO, Memoria hydrochlori 0-11 Q6H, 0 l de 15:33: Refill(s) Metronidazo 2017-06 No 500 mg = 1 Memoria le 0-11 tab, PO, l 15:33: Q6H, 0 Morgan Refill(s) Omeprazole 2017-06 No 40 mg, PO, [...] 0-11 tab, PO, l 15:33: Q12H, 0 Morgan 00 Refill(s) Ciprofloxac 2017-06 No 500 mg, [...] tab, PO, l tablet 15:33: Q12H, 0 Morgan 00 Refill(s) Famotidine 2017-06 No 20 mg [...] 0-11 tab, PO, l 15:33: Q6H, 0 Morgan 00 Refill(s) Omeprazole 2017-06 No 40 mg, PO, M emoria 0-11 Daily, 0 l 15:33: Refill(s) Dicyclomine 2017-06 No 20 mg, PO, Memoria 0-11 Q6H, 0 l 15:33: Refill(s) ondansetron 2017-06 No 4 mg = 1 Me moria 4 mg oral 0-11 tab, PO, l tablet 15:33: Q12H, 0 Morgan 00 Refill(s) Famotidine 2017-06 No 20 mg = 1 Me moria 0-11 tab, PO, l 15:33: Q12H, 0 Morgan 00 Refill(s) Ciprofloxac 2017-06 No 500 mg, Mem oria in 0-11 PO, Q12H, l 15:33: 0 Cal 00 Refill(s) hydrOXYzine 2017-06 No 25 mg, PO, Memoria hydrochlori 0-11 Q6H, 0 l de 15:33: Refill(s) Metronidazo 2017-06 No 500 mg = 1 Memoria le 0-11 tab, PO, l 15:33: Q6H, 0 Cal 00 Refill(s) omeprazole 2017-06- No Univer s 40 mg 0-05 -22 [...] Medical suppository (two) Branch times daily. CALCIUM 2015- Yes Take by Univers CARBONATE 3-02 mouth. ity of (CALCIUM 14:20: [place] 500 ORAL) 36 Medical Branch CALCIUM 2016-0 Yes Take by Univers CARBONATE 3-02 mouth. ity of (CALCIUM 14:20: [place] 500 ORAL) 36 [facility] Immunizations Ordered Filled Immunization Date Status Comments [facility] e Immunization Name Name TDBRITTNEY 2022-07-19 Completed University of 00:00:00 [facility] Influenza Virus 2022-07-19 Completed Universit y of Vaccine Quad IM, 00:00:00 [place] Me dical Preserv and ABX Branch Free 6 MO-64 YRS TDAP 2022-07-19 Completed University of 00:00:00 [facility] Influenza Virus 2022-07-19 Completed Universit y of Vaccine Quad IM, 00:00:00 [place] Me dical Preserv and ABX Branch Free 6 MO-64 YRS TDAP 2022-07-19 Completed University of 00:00:00 [facility] Influenza Virus 2022-07-19 Completed Universit y of Vaccine Quad IM, 00:00:00 [facility] dical Preserv and ABX Branch Free 6 MO-64 YRS TDAP 2022-07-19 Completed University of 00:00:00 [facility] Influenza Virus 2022-07-19 Completed Universit y of Vaccine Quad IM, 00:00:00 [place] Me dical Preserv and ABX Branch Free 6 MO-64 YRS TDAP 2022-07-19 Completed University of 00:00:00 [facility] Influenza Virus 2022-07-19 Completed Universit y of Vaccine Quad IM, 00:00:00 [facility] dical Preserv and ABX Branch Free 6 MO-64 YRS TDAP 2022-07-19 Completed University of 00:00:00 [facility] Influenza Virus 2022-07-19 Completed Universit y of Vaccine Quad IM, 00:00:00 [place] Me dical Preserv and ABX Branch Free 6 MO-64 YRS TDAP 2022-07-19 Completed University of 00:00:00 [facility] Influenza Virus 2022-07-19 Completed Universit y of Vaccine Quad IM, 00:00:00 [place] Me dical Preserv and ABX Branch Free 6 MO-64 YRS TDAP 2022-07-19 Completed University of 00:00:00 [facility] Influenza Virus 2022-07-19 Completed Universit y of Vaccine Quad IM, 00:00:00 [place] Me dical Preserv and ABX Branch Free 6 MO-64 YRS TDAP 2022-07-19 Completed University of 00:00:00 [facility] Influenza Virus 2022-07-19 Completed Universit y of Vaccine Quad IM, 00:00:00 [place] Me dical Preserv and ABX Branch Free 6 MO-64 YRS TDAP 2022-07-19 Completed University of 00:00:00 [facility] Influenza Virus 2022-07-19 Completed Universit y of Vaccine Quad IM, 00:00:00 [place] Me dical Preserv and ABX Branch Free 6 MO-64 YRS TDAP 2022-07-19 Completed University of 00:00:00 [facility] Influenza Virus 2022-07-19 Completed Universit y of Vaccine Quad IM, 00:00:00 [place] Me dical Preserv and ABX Branch Free 6 MO-64 YRS TDAP 2022-07-19 Completed University of 00:00:00 [facility] Influenza Virus 2022-07-19 Completed Universit y of Vaccine Quad IM, 00:00:00 [place] Me dical Preserv and ABX Branch Free 6 MO-64 YRS TDAP 2022-07-19 Completed University of 00:00:00 [facility] Influenza Virus 2022-07-19 Completed Universit y of Vaccine Quad IM, 00:00:00 [place] Me dical Preserv and ABX Branch Free 6 MO-64 YRS TDAP 2022-07-19 Completed University of 00:00:00 [facility] Influenza Virus 2022-07-19 Completed Universit y of Vaccine Quad IM, 00:00:00 [place] Me dical Preserv and ABX Branch Free 6 MO-64 YRS TDAP 2022-07-19 Completed University of 00:00:00 [facility] Influenza Virus 2022-07-19 Completed Universit y of Vaccine Quad IM, 00:00:00 [facility] dical Preserv and ABX Branch Free 6 MO-64 YRS TDAP 2022-07-19 Completed University of 00:00:00 [facility] Influenza Virus 2022-07-19 Completed Universit y of Vaccine Quad IM, 00:00:00 [place] Me dical Preserv and ABX Branch Free 6 MO-64 YRS Vital Signs Vital Name Observation Time Observation Value Comments Source Systolic blood 2022-08-09 13:52:00 116 mm[Hg] [facility] [place] [facility] Diastolic blood 2022-08-09 13:52:00 76 mm[Hg] Unive rsity of pressure [place] [facility] Heart rate 2022-08-09 13:52:00 62 /min Universi ty of [place] [facility] Body temperature 2022-08-09 13:52:00 36.44 Carol Univ ersity of [place] [facility] Body height 2022-08-09 13:52:00 180.3 cm Universi ty of [place] [facility] Body weight 2022-08-09 13:52:00 89.812 kg Universi ty of [place] [facility] BMI 2022-08-09 13:52:00 27.62 kg/m2 Universi ty of [place] [facility] Oxygen saturation in 2022-08-09 13:52:00 98 /min University of Arterial blood by [facility] Pulse oximetry Branch Systolic blood 2022-07-19 20:02:00 107 mm[Hg] Univer sity of pressure [place] [facility] Diastolic blood 2022-07-19 20:02:00 67 mm[Hg] Unive rsity of pressure [place] [facility] Heart rate 2022-07-19 20:02:00 75 /min Universi ty of [place] [facility] Body temperature 2022-07-19 20:02:00 36.89 Carol Univ ersity of [place] [facility] Body height 2022-07-19 20:02:00 180.3 cm Universi ty of [place] [facility] Body weight 2022-07-19 20:02:00 90.81 kg Universi ty of [place] [facility] BMI 2022-07-19 20:02:00 27.92 kg/m2 Universi ty of [place] [facility] Oxygen saturation in 2022-07-19 20:02:00 100 /min University of Arterial blood by [facility] faina Pulse oximetry Branch Systolic blood 2021-04-27 17:30:43 120 mm[Hg] Univer sity of pressure [place] [facility] Diastolic blood 2021-04-27 17:30:43 75 mm[Hg] Unive rsity of pressure [place] [facility] Heart rate 2021-04-27 17:30:43 70 /min Universi ty [facility] [place] [facility] Body temperature 2021-04-27 17:30:43 36.78 Carol Univ ersity of [place] [facility] Respiratory rate 2021-04-27 17:30:43 18 /min [facility] Oxygen saturation in 2021-04-27 17:30:43 100 /min [facility] blood by [facility] Pulse oximetry Branch Heart Rate 2018-03-16 15:31:00 Jefferson Mccall Weight 2018-03-16 15:31:00 Jefferson Mccall Height 2018-03-16 15:31:00 180.34 cm Jefferson Mccall BMI Calculated 2018-03-16 15:31:00 Quang stevens Cal Systolic (mm Hg) 2018-03-16 15:31:00 Ming mancia Cal Diastolic (mm Hg) 2018-03-16 15:31:00 Mem orial Cal Procedures Procedure Date / Time Performed Performing Clinician Sour e DISCLOSURE AND 2022-08-10 06:01:00 Doctor Unassigned, No [facility] CONSENT, MEDICAL AND Name Medical [facility] SURGICAL PROCEDURES TDAP VACCINE, >11 YRS, 2022-07-19 20:16:53 Jluis Whelan [facility] Medical Branch FLU VACC (), 2022-07-19 20:16:53 Jluis Whelan [facility] 6 MO-64 YRS, .5ML, IM, Medical B ranch QUAD (FLUCELVAX) ASSIGNMENT OF BENEFITS 2022-07-19 19:23:15 Doctor Unassigned, No [facility] CT ABDOMEN PELVIS W 2021-04-27 16:08:21 Bran Red [facility] CONTRAST Medical Branch LIPASE 2021-04-27 15:45:00 Red, [facility] COMP. METABOLIC PANEL 2021-04-27 15:45:00 Bran Red [facility] ([id number]) Medical [place] CBC WITH DIFF 2021-04-27 15:45:00 Scalf [facility] URINALYSIS 2021-04-27 15:45:00 Scalf [facility] NOTICE OF PRIVACY 2021-04-27 14:21:16 Doctor Unassigned, No [facility] Name Medical Branch CONSENT/REFUSAL FOR 2021-04-27 14:20:59 Doctor Unassigned, No [facility] DIAGNOSIS AND [facility] [place] Medical Branch TREATMENT Encounters Start End Encounter Admission Attending Care Care Encounter Source Date/Time Date/Time Type Type Clinicians Facility Department ID 2022-09-13 Outpatient [facility] [id number] Univers 15:45:30 PIOTR rohitwilli [facility] [place] [facility] 2022-10-06 2022-10-06 Outpatient [facility] [id number] Andrew 15:19:09 15:19:09 0503 F Miles 2022-09-28 2022-09-28 Outpatient [facility] [id number] Andrew 13:29:12 13:29:12 0425 F Miles 2022-09-27 2022-09-27 Telephone [facility] [id number] Univers 00:00:00 00:00:00 Piotr KRISTINE [id number] i ty [place] [id number] [address] 2022-09-17 2022-09-17 Telephone [facility] [id number] Univers 00:00:00 00:00:00 Piotr KRISTINE [id number] i ty [facility] [id number] [id number] Ne dic[address] 2022-09-15 2022-09-15 Telephone Gabrielle Forman RUST [id number] Univers 00:00:00 00:00:00 Miguel Angel CARMONA [id number] i ty [facility] [id number] SURGICAL [id number] [address] 2022-09-13 2022-09-13 Telephone [facility] [id number] Univers 00:00:00 00:00:00 Piotr KRISTINE [id number] i [place] [id number] Ne dic[address] 2022-08-10 2022-08-10 Orders Doctor JAY [id number] Univers 00:00:00 00:00:00 Only Unassigned, PADMINI [id number] [place] [facility] 4.2.7.2.686 Edwar as [id number] [address] 2022-08-09 2022-08-09 Outpatient R BERNARDO [facility] [id number] Univers 08:00:00 10:23:38 PIOTR ayala [facility] [place] [facility] 2022-08-09 2022-08-09 [facility] [id number] Univers 08:00:00 10:23:38 Visit Piotr KRISTINE [id number] i ty of [place]2.[place] [id number] Ne dical NAL 188 [facility] 2022-07-20 2022-07-20 [facility]phone [facility] [id number] Univers 00:00:00 00:00:00 [facility] [id number] it y of [place] 4.2.7.2.686 Edwar as KELIN?BLEA [phone] Ne dical NIKIEY 044 [facility] OFFICE [facility] 2022-07-19 2022-07-19 Outpatient R TIP [facility] [id number] Univers 14:00:00 17:27:03 JLUIS ayala [facility] [place] [facility] 2022-07-19 2022-07-19 [facility], Ang - Db RUST 1.2.840.1 [id number] Univers 15:00:00 15:15:00 Visit Jluis Whelan [facility] 350.1.13.10 ity of [place] 4.2.7.2.686 Edwar as KELIN?BLEA [id number] Ne dical KNEY 353 [facility] OFFICE [facility] 2022-07-19 2022-07-19 Office [facility] [id number] Univers 14:00:00 14:30:00 Visit Jluis [facility] 350.1.13.10 it y of [place] 4.2.7.2.686 Edwar as KELIN?BLEA [id number] Ne dical KNEY 044 [facility] OFFICE [facility] 2022-07-19 2022-07-19 Orders Doctor PIERRE 1.2.840.114 [id number] Univers 00:00:00 00:00:00 Only Unassigned, PADMINI 350.1.13.10 ity of [facility] 4.2.7.2.686 [facility] [place] [facility] [id number] [facility] 009 Branch 2022-07-12 2022-07-12 Outpatient R TIP, [facility] [id number] Univers 13:00:00 13:00:00 JLUIS ayala [facility] [place] [facility] 2021-04-27 2021-04-27 Emergency X RED, [place] ERT [id number] Univers 08:27:00 11:54:00 BRAN ayala [facility] [place] [facility] 2021-04-27 2021-04-27 [facility] [id number] Univers 08:27:00 11:54:00 Bran CARMONA 350.1.13.10 i ty [facility] 4.2.7.2.686 [facility] [id number] [place] [id number] [place] 2018-05-26 2018-05-28 Outside nullFlavo MNA [id number] Memoria 16:20:00 05:59:59 Medical r Neurology 02 l Records [facility] 2018-05-26 2018-05-28 Outside nullFlavo MNA [id number] Memoria 16:20:00 05:59:59 Medical r Neurology 02 l Records [facility] 2018-05-26 2018-05-27 Outpatient MHMISCHER MHMISCHER [id number] 10:20:00 23:59:59 02 2018-04-21 2018-04-21 Ambulatory nullFlavo MNA [id number] Memoria 17:15:00 17:15:00 [facility] 01 [facility] 2018-04-21 2018-04-21 Ambulatory nullFlavo MNA [id number] Memoria 17:15:00 17:15:00 Pre-Reg r Neurology 01 l Payal Morgan 2018-04-21 2018-04-21 Outpatient BAUDILIOIE GALO [id number] Memoria 11:15:00 11:15:00 01 l [place] 2018-04-21 2018-04-21 Outpatient MAGDALENA WoodySCHER MHMISCHER [id number] 11:15:00 11:15:00 Bebeto 01 Benitez 2018-03-22 2018-03-24 Outside nullFlavo MNA [id number] Memoria 22:51:00 04:59:59 Medical r Neurology 01 l Records Payal Mccall 2018-03-22 2018-03-24 Outside nullFlavo MNA [id number] Memoria 22:51:00 04:59:59 Medical r Neurology 01 l Records Payal Mccall 2018-03-22 2018-03-24 Phone nullFlavo MNA [id number] Memoria 21:22:00 04:59:59 Message r Neurology 00 l Payal Mccall 2018-03-22 2018-03-24 Phone nullFlavo MNA [id number] Memoria 21:22:00 04:59:59 Message r Neurology 00 l Payal Mccall 2018-03-22 2018-03-23 Outpatient MHMISCHER MHMISCHER [id number] 17:51:00 23:59:59 2018-03-22 2018-03-23 Outpatient MHMISCHER MHMISCHER [id number] 16:22:00 23:59:59 2018-03-16 2018-03-17 Outpatient nullFlavo MNA [id number] Memoria 16:00:00 04:59:59 r Neurology 00 l Payal Mccall 2018-03-16 2018-03-17 Outpatient nullFlavo MNA [id number] Memoria 16:00:00 04:59:59 r Neurology 00 l Payal Mccall 2018-03-16 2018-03-16 Outpatient BAUDILIO WoodyWYSCHSHANICE MISCHER [id number] 11:00:00 23:59:59 Bebeto 00 Benitez 2018-03-16 2018-03-16 Outpatient MHIE MHIE [id number] Memoria 11:00:00 11:00:00 00 miguel angel Mccall Results Test Description Test Time Test Comments Results Result Comments Source CHLAMYDIA, NAAT, URINE 2022-09-24 18:32:30 Test Item Value Reference Range Interpretation Comme nts CHLAMYDIA, NAAT, URINE (test NEGATIVE NEGATIVE Testing is performed with Serge code = 74446) VALERIO 6800/880 0 systems usingreal-time polymerase chain reaction (PCR) method. A negative result does not exclude low level infection, spec imensampling error, or collection e rror. GONORRHEA, NAAT, [id number] 18:32:30 Test Item Value Reference Range Interpretation Comments GONORRHEA, NAAT, NEGATIVE NEGATIVE Testing is performed with URINE (test code Serge VALERIO 6800/8800 = 02026) systems usingre al-time polymerase koko n reaction (PCR) method. A negative result does not exclude low level infection , specimensamplin g error, or collection erro r. HERPES SIMPLEX AB, [id number] 13:53:23 Test Item Value Reference Range Interpretation Comments HERPES SIMPLEX AB, 0.54 INDEX SEE BELOW INTERPRE TATION UNITS IgM (test code = RANGE ----- --------- 19024) ----- ----- NEG ATIVE INDEX <=0.89 EQ UIVOCAL INDEX 0.90-1.09 POSITIVE INDEX >=1.10 HIV 1/2 4TH GEN, RFLX [id number] 07:01:13 Test Item Value Reference Range Interpretation Comments HIV 1/2 4TH GEN, RFLX CONF (test NON-REACTIVE NON-REACTIVE code = 3514) HEPATITIS PANEL, [id number] 07:01:13 Test Item Value Reference Range Interpretation Comments HEPATITIS A IgM (test NON-REACTIVE NON-REACTIVE code = 65501) HEPATITIS B CORE IgM NON-REACTIVE NON-REACTIVE (test code = 4644) HEPATITIS B SURF AG NON-REACTIVE NON-REACTIVE (test code = 2739) HEPATITIS C ANTIBODY NON-REACTIVE NON-REACTIVE (test code = 4675) INTERPRETATION (NOTE) Hepatitis A HEPATITIS A: (test code sero logy shows no = 2552) evidence of acu te hepatitis A. INTERPRETATION (NOTE) Hepatitis B HEPATITIS B: (test code sero logy shows no = 59739) evidence of acu te hepatitis B and no indication of exposure to hepatitis B vir us in the previous alex eight months. INTERPRETATION (NOTE) Hepatitis C HEPATITIS C: (test code sero logy shows no = 27754) evidence of exposure to hepatitisC viru s at this time. I t can take up to 12 months after exposure tothe hepatitis C vir us for antibodies to become detectab le in the blood in certain patient s. HERPES SIMPLEX 1/2 AB, IgG [id number] 07:01:13 Test Item Value Reference Range Interpretation Comments HERPES SIMPLEX 1 7.520 INDEX SEE BELOW H INTERPRETA TION UNITS AB, IgG (test code RANGE --- = 03970) ----- ----- NON -REACTIVE INDEX <1.000 RE ACTIVE INDEX >=1.00 0 HERPES SIMPLEX 2 0.076 INDEX SEE BELOW INTERPRETA TION UNITS AB, IgG (test code RANGE --- = 75924) ----- ----- NON -REACTIVE INDEX <1.000 RE ACTIVE INDEX >=1.00 0 [facility] has important p athology staff changes e ffective 08/04/2022. New pathology staff will provide uninter rupted, excellent patie nt care and clinical consultation. S ee URL: [email or web address]. UNLESS OTHERWISE INDICATED, ALL TESTING PERFORMED AT [facility] PATH[facility] ATORPrepared Response, INC[employer] [address] [place] [address] 4 LABORATORY DIRE CTOR: SHIELA RICE M.D. [place] NUMBER [id number] [facility] [place]. [id number] RPR REFLEX TO T. PALLIDUM - [id number] 04:35:14 Test Item Value Reference Range Interpretation Comments RPR (test code = 52440) NON-REACTIVE NON-REACTIVE RPR TITER (test code = 3500) NOT INDIC. TITER NOT INDIC. CBC WITH [id number] 16:21:34 Test Item Value Reference Range Interpretation Comments WBC (test code = See_Comment [Automated 3059-2) message] The sy stem which generated this result transmitted reference range : 4.20 - 10.70 10*3/?L. The reference range was not used to interpret this result as normal/abnormal . RBC (test code = See_Comment [Automated 730-1) message] The sy stem which generated this [...] RDW-SD (test code = 39.9 fL 38.5-51.6 62123-7) RDW-CV (test code = 12.4 % 12.1-15.4 788-0) PLT (test code = See_Comment L [Automated 777-3) message] The sy stem which generated this result transmitted reference range : 150 - 328 10*3/ ?L. The reference r elizabeth was not used to interpret this result as normal/abnormal . MPV (test code = 10.6 fL 9.8-13.0 31645-7) IPF % (test code = 3.9 % 1.2-10.7 Platelet count 9688799014) measured by fluorescence method. NRBC/100 WBC (test See_Comment [Automat ed code = 6764622313) message] The system which generated this result transmitted reference range : 0.0 - 10.0 /100 WBCs. The refer ence range was not u sed to interpret th is result as normal/abnormal . NRBC x10^3 (test code <0.01 See_Comment [Auto mated = 7321927194) message] The s ystem which generated this result transmitted reference range : 10*3/?L. The reference range was not used to interpret this result as normal/abnormal . GRAN MAT (NEUT) % 45.9 % (test code = 770-8) IMM GRAN % (test code 0.20 % = 2303760391) LYMPH % (test code = 41.6 % 736-9) MONO % (test code = 5.3 % 5905-5) EOS % (test code = 6.5 % 713-8) BASO % (test code = 0.5 % 706-2) GRAN MAT x10^3(ANC) 2.59 10*3/uL 1.99-6.95 (test code = 6664506787) IMM GRAN x10^3 (test <0.03 0.00-0.06 code = 9707036439) LYMPH x10^3 (test code 2.35 10*3/uL 1.09-3.23 = 731-0) MONO x10^3 (test code 0.30 10*3/uL 0.36-1.02 L = 742-7) EOS x10^3 (test code = 0.37 10*3/uL 0.06-0.53 711-2) BASO x10^3 (test code 0.03 10*3/uL 0.01-0.09 = 704-7) Lab Interpretation Abnormal (test code = 51647-7) [facility] (86100)2021-04-27 16:20:53 Test Item Value Reference Range Interpretation Comments NA (test code = 138 mmol/L 135-145 1940240489) K (test code = 4.3 mmol/L 3.5-5.0 2013626477) CL (test code = 104 mmol/L 98-108 4768950551) CO2 TOTAL (test code 28 mmol/L 23-31 = 0693300005) AGAP (test code = 2-16 6670474302) BUN (test code = 10 mg/dL 7-23 2339048702) GLUCOSE (test code = 95 mg/dL 70-110 9342376981) CREATININE (test code 0.93 mg/dL 0.60-1.25 = 1242394172) TOTAL BILI (test code 1.1 mg/dL 0.1-1.1 = 6488300712) CALCIUM (test code = 9.2 mg/dL 8.6-10.6 6254396209) T PROTEIN (test code 7.3 g/dL 6.3-8.2 = 2597829572) ALBUMIN (test code = 4.2 g/dL 3.5-5.0 5200429773) ALK PHOS (test code = 55 U/L 34-122 3237161072) ALTv (test code = 21 U/L 5-50 1742-6) AST(SGOT) (test code 28 U/L 13-40 = 2798962805) eGFR (test code = mL/min/1.73m2 4317031247) ABA (test code = ABA) Association of [...] urine or abnormalities in imaging tests). [facility] 16:20:33 Test Item Value Reference Range Interpretation Comments LIPASE (test code = 2265720280) 58 U/L 0-220 Lab Interpretation (test code = Normal 98158-5) [facility]"
[2022-10-08] MEDS ORDERED: NA CHLORIDE 0.9% 0 ML ONE (04:44)
[2022-10-08] MEDS ORDERED: ONDANSETRON 4 MG/2 ML VIAL ONE ×2 (04:44→04:46)
[2022-10-08] MEDS ORDERED: NA CHLORIDE 0.9% 1,000 ML ONE (04:46)
[2022-10-08 05:33] LABS: Specific Gravity 1.006 (1.005-1.030); Urine Bilirubin NEGATIVE (Negative); Urine Blood Negative (Negative); Urine Clarity Clear (Clear); Urine Color Colorless (Yellow); Urine Glucose NEGATIVE (Negative); Urine Protein NEGATIVE (Negative); Urine Urobilinogen Normal (Normal)
[2022-10-08 05:46] LABS: Absolute Lymphocytes (CBC) 1.7 K/uL (0.7-4.9); Hematocrit 41.8 % (39.6-49.0); Lymphocytes % 23.8 % (15.3-44.8); MCV 85.9 fL (80-100); MPV 9.2 fL (7.6-11.3); RBC Red Blood Cell Count 4.86 M/uL (4.33-5.43)
[2022-10-08 06:05] LABS: Albumin 3.6 g/dL (3.4-5.0); Bilirubin Total 0.3 mg/dL (0.2-1.0); Protein, Total 7.1 g/dL (6.4-8.2)
--- NOTE | 2022-10-08 07:24 | ER ---
Nurse's Notes [facility] Name: Juan Campos Age: 46 yrs Sex: Male : 1975 Arrival Date: 10/08/2022 Time: 04:23 Bed 15 Private MD: Diagnosis: Vomiting, unspecified;Nausea with vomiting, unspecified;Diarrhea, unspecified Presentation: 10/08 04:30 Chief complaint: EMS states: Toned out for N/V/D and abdominal pain 910, upon arrival ll3 c/o numbness to both feet. Coronavirus screen: Vaccine status: Patient reports receiving the 2nd dose of the covid vaccine. diarrhea, nausea, vomiting. Ebola Screen: No symptoms or risks identified at this time. Initial Sepsis Screen: Does the patient meet any 2 criteria? No. Patient's initial sepsis screen is negative. Does the patient have a suspected source of infection? No. Patient's initial sepsis screen is negative. Risk Assessment: Do you want to hurt yourself or someone else? Patient reports no desire to harm self or others. Onset of symptoms was October 08, 2022. 04:30 Method Of Arrival: EMS: [facility] ll3 04:30 Acuity: [place] 3 ll3 04:30 Care prior to arrival: IV initiated. 20 GA, in the left antecubital area. ll3 Triage Assessment: 04:34 General: Appears uncomfortable, Behavior is calm, cooperative. Pain: Complains of pain ll3 in suprapubic area Pain does not radiate. Pain currently is 9 out of 10 on a pain scale. Quality of pain is described as burning, Pain began 4 hours ago. Is continuous. Neuro: Level of Consciousness is awake, alert, obeys commands, Oriented to person, place, time, situation, Reports C/o numbness to both feet. GI: Abdomen is round non-distended, Reports lower abdominal pain, diarrhea, nausea, vomiting. Derm: Skin is pink, warm \T\ dry. Historical: - Allergies: 04:34 No Known Allergies; ll3 - Home Meds: 04:34 valacyclovir 1 gram Oral tablet daily [Active]; ll3 - PMHx: 04:34 Bipolar disorder; Anxiety; adhd; Herpes simplex; ll3 - PSHx: 04:34 hernia; Vasectomy; ll3 - Immunization history:: Client reports receiving the 2nd dose of the Covid vaccine. - Social history:: Smoking status: Patient denies any tobacco usage or history of. Screenin:37 [facility] ED Fall Risk Assessment (Adult) History of falling in the last 3 months, ll3 including since admission No falls in past 3 months (0 pts) Confusion or Disorientation No (0 pts) Intoxicated or Sedated No (0 pts) Impaired Gait No (0 pts) Mobility Assist Device Used No (0 pt) Altered Elimination No (0 pt) Score/Fall Risk Level 0 - 2 = Low Risk Oriented to surroundings, Maintained a safe environment, Educated pt \T\ family on fall prevention, incl call for assistance when getting out of bed. Abuse screen: Denies threats or abuse. Denies injuries from another. Nutritional screening: No deficits noted. Tuberculosis screening: No symptoms or risk factors identified. Assessment: 04:30 General: Appears uncomfortable, Behavior is cooperative. Pain: Complains of pain in ha1 abdomen Pain does not radiate. Pain currently is 7 out of 10 on a pain scale. Quality of pain is described as burning. Neuro: Level of Consciousness is awake, alert, obeys commands, Oriented to person, place, time, situation. Cardiovascular: Capillary refill < 3 seconds Patient's skin is warm and dry. Respiratory: Airway is patent Respiratory effort is even, unlabored, Respiratory pattern is regular, symmetrical. GI: Abdomen is flat, non-distended, Bowel sounds present X 4 quads. Reports upper abdominal pain, nausea, vomiting. : No signs and/or symptoms were reported regarding the genitourinary system. Derm: Skin is healthy with good turgor, Skin is dry, Skin is normal. Musculoskeletal: Circulation, motion, and sensation intact. Range of motion: intact in all extremities. 05:30 Reassessment: Patient and/or family updated on plan of care and expected duration. Pain ha1 level reassessed. Patient is alert, oriented x 3, equal unlabored respirations, skin warm/dry/pink. 06:12 Reassessment: Patient and/or family updated on plan of care and expected duration. Pain ha1 level reassessed. Patient is alert, oriented x 3, equal unlabored respirations, skin warm/dry/pink. pain 6/10. reports improvements on nausea. 07:18 Reassessment: Patient and/or family updated on plan of care and expected duration. Pain ap3 level reassessed. Patient is alert, oriented x 3, equal unlabored respirations, skin warm/dry/pink. nurse rounded with ER dr. Vital Signs: 04:30 BP 136 / 90; Pulse 75; Resp 16; Temp 98.2(O); Pulse Ox 100% on R/A; Weight 90.26 kg ll3 (R); Height 6 ft. 1 in. (R); Pain 9/10; 04:30 BP 134 / 89; Pulse 73; Resp 16 S; Pulse Ox 100% on R/A; ha1 05:30 BP 138 / 82; Pulse 77; Resp 16 S; Pulse Ox 100% on R/A; ha1 06:13 BP 121 / 82; Pulse 72; Resp 16 S; Pulse Ox 99% on R/A; ha1 07:19 BP 120 / 79; Pulse 64; Pulse Ox 96% ; ap3 04:30 Body Mass Index 26.25 (90.26 kg, 185.42 cm) ll3 04:30 Pain Scale: Adult ll3 ED Course: 04:30 Patient arrived in ED. ll3 04:30 Maintain EMS IV. Dressing intact. Site clean \T\ dry. Gauge \T\ site: 20 garland left AC. wallace 1 04:33 Triage completed. ll3 04:34 Arm band placed on Patient placed in an exam room, on a stretcher, on pulse oximetry. ll3 04:35 Sara Flores, RN is Primary Nurse. ha1 04:37 Patient has correct armband on for positive identification. Bed in low position. Call ll3 light in reach. Side rails up X 1. 04:38 To Wan MD is Attending Physician. kdr 05:44 CBC with Diff Sent. ha1 05:44 CMP Sent. ha1 05:44 Lipase Sent. ha1 07:06 Attending Physician role handed off by To Wan MD bs3 07:06 Kimani Ward MD is Attending Physician. bs3 07:30 No provider procedures requiring assistance completed. IV discontinued, intact, ap3 bleeding controlled, No redness/swelling at site. Pressure dressing applied. Administered Medications: 04:44 Drug: Ondansetron IVP 4 mg Route: IVP; Site: left antecubital; ha1 04:44 Drug: NS 0.9% IV 1000 ml Route: IV; Rate: 1 bolus; Site: left antecubital; ha1 Medication: 07:31 VIS not applicable for this client. ap3 Outcome: 07:23 Discharge ordered by . bs3 07:30 Discharged to home ambulatory. ap3 07:30 Condition: good 07:30 Discharge instructions given to patient, Instructed on discharge instructions, follow up and referral plans. medication usage, Demonstrated understanding of instructions, follow-up care, medications, Prescriptions given X 1. 07:31 Patient left the ED. ap3 Signatures: To Wan MD MD kdr Mell Huber RN RN ap3 Lorri Franco RN RN 3 Sara Flores RN RN ha1 Kimani Ward MD MD bs3
--- NOTE | 2022-10-08 07:24 | EDPHYS ---
Physician Documentation [facility] Name: Juan Campos Age: 46 yrs Sex: Male : 1975 Arrival Date: 10/08/2022 Time: 04:23 Bed 15 Private MD: ED Physician Kimani Ward HPI: 10/08 07:19 This 46 yrs old Male presents to ER via EMS with complaints of abd pain, bs3 nausea and vomiting. 07:19 no sick contacts, or recent travel or antibiotic use, endorses 2 days of nausea, bs3 vomiting and nb diarrhea, he notes crampy pain occasionally with diarrhea, otherwise no pain. No cp, sob or anything else bothering him, pain is periumbilical. Historical: - Allergies: 04:34 No Known Allergies; ll3 - Home Meds: 04:34 valacyclovir 1 gram Oral tablet daily [Active]; ll3 - PMHx: 04:34 Bipolar disorder; Anxiety; adhd; Herpes simplex; ll3 - PSHx: 04:34 hernia; Vasectomy; ll3 - Immunization history:: Client reports receiving the 2nd dose of the Covid vaccine. - Social history:: Smoking status: Patient denies any tobacco usage or history of. ROS: 07:19 Constitutional: Negative for fever, chills bs3 07:19 All other systems are negative. Exam: 07:19 Constitutional: This is a well developed, well nourished patient who is awake, alert, bs3 and in no acute distress. Head/Face: Normocephalic, atraumatic. Eyes: Pupils equal round and reactive to light, extra-ocular motions intact. Lids and lashes normal. ENT: mmm, no posterior phyarngeal erythema Neck: Trachea midline, no thyromegaly, no neck stiffness Chest/axilla: Normal chest wall appearance and motion. Nontender with no deformity. No lesions are appreciated. Cardiovascular: Regular rate and rhythm with a normal S1 and S2. symmetric pulses in upper extremities Respiratory: Lungs have equal breath sounds bilaterally, clear to auscultation, no respiratory distress Abdomen/GI: Soft, non-tender, no rebound or guarding Skin: Warm, dry with normal turgor. Normal color with no rashes, no lesions, and no evidence of cellulitis. MS/ Extremity: Pulses equal, no cyanosis. Neurovascular intact. Full, normal range of motion. Neuro: Awake and alert, GCS 15, oriented to person, place, time, and situation. Cranial nerves II-XII grossly intact. Motor strength 5/5 in all extremities. Sensory grossly intact. Psych: Awake, alert, with orientation to person, place and time. Behavior, mood, and affect are within normal limits. Vital Signs: 04:30 BP 136 / 90; Pulse 75; Resp 16; Temp 98.2(O); Pulse Ox 100% on R/A; Weight 90.26 kg ll3 (R); Height 6 ft. 1 in. (R); Pain 9/10; 04:30 BP 134 / 89; Pulse 73; Resp 16 S; Pulse Ox 100% on R/A; ha1 05:30 BP 138 / 82; Pulse 77; Resp 16 S; Pulse Ox 100% on R/A; ha1 06:13 BP 121 / 82; Pulse 72; Resp 16 S; Pulse Ox 99% on R/A; ha1 07:19 BP 120 / 79; Pulse 64; Pulse Ox 96% ; ap3 04:30 Body Mass Index 26.25 (90.26 kg, 185.42 cm) ll3 04:30 Pain Scale: Adult ll3 MDM: 07:19 Data reviewed: vital signs, nurses notes. ED course: signed out pending reassessment bs3 and serial exams, pt feeling better, will dc home, advised return prec. 07:19 Differential Diagnosis possible viral illness, gastroenteritis, colitis, appendicitis, bs3 vamshi. ED course: pt seen before my assessment, and plan was for reevaluation and conisderation of ct, I assessed the patient and he endorsed feeling better, his abd was soft, nt, nd, pt denied pain, will dc home, return prec given. . 07:23 Patient medically screened. bs3 10/08 04:47 Order name: CBC with Diff; Complete Time: 07:07 ll3 10/08 04:47 Order name: CMP; Complete Time: 07:07 ll3 10/08 04:47 Order name: Lipase; Complete Time: 07:07 ll3 10/08 04:47 Order name: Urinalysis w/ reflexes; Complete Time: 07:07 ll3 10/08 04:47 Order name: IV Saline Lock; Complete Time: 05:06 ll3 10/08 04:47 Order name: Labs collected and sent; Complete Time: 05:44 ll3 Administered Medications: 04:44 Drug: Ondansetron IVP 4 mg Route: IVP; Site: left antecubital; 1 04:44 Drug: NS 0.9% IV 1000 ml Route: IV; Rate: 1 bolus; Site: left antecubital; ha1 Disposition Summary: 10/08/22 07:23 Discharge Ordered Location: Home bs3 Problem: new bs3 Symptoms: have improved bs3 Condition: Stable bs3 Diagnosis - Vomiting, unspecified bs3 - Nausea with vomiting, unspecified bs3 - Diarrhea, unspecified bs3 Followup: bs3 - With: Private Physician - When: 2 - 3 days - Reason: Re-evaluation by your physician Discharge Instructions: - Discharge Summary Sheet bs3 - Nausea and Vomiting, Adult bs3 Forms: - Medication Reconciliation Form bs3 - Thank You Letter bs3 - Antibiotic Education bs3 - Prescription Opioid Use bs3 Prescriptions: - ondansetron 8 mg Oral tablet,disintegrating - take 1 tablet by ORAL route every 8 hours; 10 tablet; Refills: 0, Product bs3 Selection Permitted Signatures: Dispatcher [employer] To Espinal MD MD [facility] Lorri Franco RN RN 3 Sara Flores RN RN [facility] Kimani Ward MD MD 3
[2022-10-08 07:36] VITALS: TEMP 98.2
[2022-10-08 07:40] VITALS: BP 120/79; O2SAT 96
== END 2022-10-08 07:31 | disposition home or self-care (01) ==
LOC: ER 04:23
DX: R11.2 Nausea with vomiting, unspecified (principal); R19.7 Diarrhea, unspecified
CPT/HCPCS: 85025; 36415; 81003; 83690; 80053; 96374; 99284; J2405; J7030

== ENCOUNTER 2023-02-06 21:24 | Emergency (ER) | payer OTHER ==
--- OUTSIDE RECORDS SUMMARY | 2023-02-06 21:31 | XMS REPORT | Continuity of Care Document ---
:1975 Author Organization [facility] t Address [address] [place] [address] Care Team Providers Name Role Phone JLUIS WHELAN Primary Care Physician Unavailable PIOTR CHANG Attending Clinician Unavailable ASHLEY GAYLE Attending Clinician Unavailable Ashley Gayle MD Attending Clinician Piotr Chang MD Attending Clinician Gabrielle Forman RN Attending Clinician Unavailable Doctor Unassigned, [place] Attending Clinician Unavailable Jluis Ferrell Attending Clinician JLUIS WHELAN Attending Clinician Unavailable Lab, Ang - Db Attending Clinician Unavailable BRAN RED Attending Clinician Unavailable Bran Red DO Attending Clinician Bebeto Woody Attending Clinician PIOTR CHANG Admitting Clinician Unavailable ASHLEY GAYLE Admitting Clinician Unavailable BRAN RED Admitting Clinician Unavailable Payers Payer Name Policy Type Policy Number Effective Date Expiration Date S lawrence PHCS GENERIC [id number] 2022 00:00:00 MEDICAID [facility] [id number] 2021 00:00:[address] [facility] [id number] 2022 PLUS 00:00:00 [facility] [id number] 2014 MEDICAID 00:00:00 Problems Condition Condition Condition Status Onset Resolution Last Treating Co mments Source Name Details Category Date Date Treatment Clinician Date Esophageal Esophageal Disease Active Overview : Univers dysphagia dysphagia 3-08 Formattin i ty of 00:00: g of this [place] 00 note Medical might be Branch different from the original. Added automatic ally from request for surgery [id number] Abdominal Abdominal Disease Active Overview: Univers pain, pain, 3-08 Formattin ity of unspecifie unspecifie 00:00: g of this [place] d d 00 note Medical abdominal abdominal might be Br anch location location different from the original. Added automatic ally from request for surgery [id number] Wellness Wellness Disease Active Unive rs examinatio examinatio 2-13 it y of n n 00:00: Medical Branch Need for Need for Disease Active Unive rs hepatitis hepatitis 2-13 ity of C C 00:00: [place] screening screening Medi faina test test Branch Need for Need for Disease Active Unive rs vaccinatio vaccinatio 2-13 it y of n n 00:00: Medical Branch Paresthesi Paresthes Problem Active 2018-12-15 Memoria a ia 11:44:54 l (finding) (finding) Herm binu Active Problem 12/15/2018 [facility] Stomach Stomach Problem Active 2018-12-15 Me moria ache ache 11:44:54 l (finding) (finding) Herm binu Active Problem 12/15/2018 [facility] Bipolar Bipolar Disease Active Overview: Univ ers disorder disorder Formattin ity of g of this [place] note Medical might be Branch different from the original. 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 Allergies, Adverse Reactions, Alerts Allergy Allergy [...] a Medicati Medicati l on on [place] mcdonald s Social History Social Habit Start Date Stop Date Quantity Comments Source Exposure to 2022-09-05 2022-09-15 Not sure University of SARS-CoV-2 00:00:00 11:05:00 [facility] (event) [place] Alcohol intake 2022-08-09 2022-08-09 Current University of 00:00:00 00:00:00 non-drinker of [facility] alcohol (finding) [place] Tobacco use and 2022-07-19 2022-07-19 Smokeless tobacco Un iversity of exposure 00:00:00 00:00:00 non-user [facility] Tobacco Comment 2022-07-19 2022-07-19 Second hand smoke Un iversity of 00:00:00 00:00:00 [facility] Sex Ass[birth year] Universit y of 00:00:00 00:00:00 [facility] Smoking Status Start Date Stop Date Source Never smoked tobacco [facility] Social History [facility] Medications Ordered Filled Start Stop Current Ordering Indication Dosage Frequency Signature Comments Components Source Medication Medication Date Date Medication? Clinician (SIG) Name Name ketorolac No 30mg 30 mg, Unive rs (TORADOL) 11-15 Slow IV ity of injection 11:00: 09:55 Push, [place] 30 mg 00 :00 ONCE, 1 Medical dose, On Branch 11/15/22 at 0600, Routine maalox:diph No 15mL 15 mL, Uni vers enhydrAMINE 11-15 Oral, ity of :lidocaine 10:00: 09:55 ONCE, 1 [place] as 2 % viscous 00 :00 dose, On [facility] 1:1:1 Tue Branch ([facility]OUT 11/15/[address] [facility]) 0500, oral Routine suspension 15 mL dicyclomine Yes [id number] 20mg Take 1 Univers 20 mg 6-12 tablet by ity of tablet 00:00: mouth 00 every 6 Medical (six) Branch hours as needed for Abdominal pain. ondansetron Yes [id number] 4mg Take 1 Univers (ZOFRAN) 4 6-12 tablet by ity of mg tablet 00:00: mouth 00 every 8 Medical (eight) Branch hours as needed for Nausea and Vomiting (N/V). diphenoxyla Yes [id number] 1{tbl} Take 1 Univers te-atropine 6-12 tablet by ity of 2.5-0.025 00:00: mouth [place] mg tablet 00 every 6 Medical (six) Branch hours as needed (Diarrhea) . sodium,pota 2022- No 117mL Take 117 Univers ssium,mag 5-24 05-25 mL by ity of sulfates 00:00: 04:59 mouth [place] 17.5-3.13-1 00 :00 now for 1 Med ical .6 gram dose. Branch CALCIUM 0 Yes Take by Univers CARBONATE 4-12 mouth. ity of (CALCIUM 11:03: [place] 500 ORAL) 23 Medical Branch CALCIUM 0 Yes Take by Univers CARBONATE 4-12 mouth. ity of (CALCIUM 11:03: [place] 500 ORAL) 23 Medical Branch CALCIUM 0 Yes Take by Univers CARBONATE 4-12 mouth. ity of (CALCIUM 11:03: [place] 500 ORAL) 23 Medical Branch CALCIUM 0 Yes Take by Univers CARBONATE 4-12 mouth. ity of (CALCIUM 11:03: [place] 500 ORAL) 23 Medical Branch CALCIUM 0 Yes Take by Univers CARBONATE 4-12 mouth. ity of (CALCIUM 11:03: [place] 500 ORAL) 23 Medical Branch CALCIUM 0 Yes Take by Univers CARBONATE 4-12 mouth. ity of (CALCIUM 11:03: [place] 500 ORAL) 23 Medical Branch CALCIUM 0 Yes Take by Univers CARBONATE 4-12 mouth. ity of (CALCIUM 11:03: [place] 500 ORAL) 23 Medical Branch CALCIUM 0 Yes Take by Univers CARBONATE 4-12 mouth. ity of (CALCIUM 11:03: [place] 500 ORAL) 23 Medical Branch CALCIUM 0 Yes Take by Univers CARBONATE 4-12 mouth. ity of (CALCIUM 11:03: [place] 500 ORAL) 23 Medical Branch sodium,pota 0 2022- No 117mL Take 117 Univers ssium,mag 3-07 03-08 mL by ity of sulfates 00:00: 05:59 mouth [place] 17.5-3.13-1 00 :00 now for 1 Med ical .6 gram dose. Branch CALCIUM 0 Yes Take by Univers CARBONATE 2-13 mouth. ity of (CALCIUM 14:04: [place] 500 ORAL) 49 Medical Branch CALCIUM 0 Yes Take by Univers CARBONATE 2-13 mouth. [...] of (CALCIUM 14:04: [place] 500 ORAL) 49 [facility] Branch CALCIUM Yes Take by Univers CARBONATE 2-13 mouth. ity of (CALCIUM 14:04: [place] 500 ORAL) 49 [facility] Branch CALCIUM Yes Take by Univers CARBONATE 2-13 mouth. ity of (CALCIUM 14:04: [place] 500 ORAL) 49 [facility] CALCIUM Yes Take by Univers CARBONATE 2-13 mouth. ity of (CALCIUM 14:04: [place] 500 ORAL) 49 [facility] iopamidol 2020-06- No [id number] 120mL 120 mL, Univers (ISOVUE 06-27 Intravenou ity o f 370-500 mL) 17:15: 16:04 s, ONCE, 1 [place] injection 00 :00 dose, On Medica l 120 mL [facility] 04/27/21 at 1115, Routine ondansetron 2020-06- No 4mg 4 mg, Slow Univers (ZOFRAN 06-27 IV Push, ity of (PF)) 16:45: 15:45 ONCE, 1 [place] injection 4 00 :00 dose, On Medi faina mg [facility] 04/27/21 at 1045, Routine sucralfate 2020-06 Yes [id number] 1g Take 1 U nivers 1 gram 06-27 tablet by ity of tablet 00:00: mouth [place] 00 before Medical meals and Branch at bedtime. dicyclomine 2020-06 Yes [id number] 10mg Take 1 Univers (BENTYL) 10 06-27 capsule by it y of mg capsule 00:00: mouth [place] 00 every 8 Medical (eight) Branch hours as needed for Abdominal pain. ondansetron 2020-06 Yes [id number] 4mg Take 1 Univers 4 mg 1-22 tablet by ity of disintegrat 00:00: mouth [place] ing tablet 00 every 8 Medica l (eight) Branch hours as needed for Nausea and Vomiting (N/V). sucralfate 2020-06 Yes [id number] 1g Take 1 U nivers 1 gram 1-22 tablet by ity of tablet 00:00: mouth [place] 00 before Medical meals and Branch at bedtime. dicyclomine 2020-06 Yes [id number] 10mg Take 1 Univers (BENTYL) 10 1-22 capsule by it y of mg capsule 00:00: mouth [place] 00 every 8 Medical (eight) Branch hours as needed for Abdominal pain. ondansetron 2020-06 Yes [id number] 4mg Take 1 Univers 4 mg 1-22 tablet by ity of disintegrat 00:00: mouth [place] ing tablet 00 every 8 Medica l (eight) Branch hours as needed for Nausea and Vomiting (N/V). sucralfate 2020-06 Yes [id number] 1g Take 1 U nivers 1 gram 1-22 tablet by ity of tablet 00:00: mouth [place] 00 before Medical meals and Branch at bedtime. dicyclomine 2020-06 Yes [id number] 10mg Take 1 Univers (BENTYL) 10 1-22 capsule by it y of mg capsule 00:00: mouth [place] 00 every 8 Medical (eight) Branch hours as needed for Abdominal pain. ondansetron 2020-06 Yes [id number] 4mg Take 1 Univers 4 mg 1-22 tablet by ity of disintegrat 00:00: mouth [place] ing tablet 00 every 8 Medica l (eight) Branch hours as needed for Nausea and Vomiting (N/V). sucralfate 2020-06 Yes [id number] 1g Take 1 U nivers 1 gram 1-22 tablet by ity of tablet 00:00: mouth [place] 00 before Medical meals and Branch at bedtime. dicyclomine 2020-06 Yes [id number] 10mg Take 1 Univers (BENTYL) 10 1-22 capsule by it y of mg capsule 00:00: mouth [place] 00 every 8 Medical (eight) Branch hours as needed for Abdominal pain. ondansetron 2020-06 Yes [id number] 4mg Take 1 Univers 4 mg 1-22 tablet by ity of disintegrat 00:00: mouth [place] ing tablet 00 every 8 Medica l (eight) Branch hours as needed for Nausea and Vomiting (N/V). sucralfate 2020-06 Yes [id number] 1g Take 1 U nivers 1 gram 1-22 tablet by ity of tablet 00:00: mouth [place] 00 before Medical meals and Branch at bedtime. dicyclomine 2020-06 Yes [id number] 10mg Take 1 Univers (BENTYL) 10 1-22 capsule by it y of mg capsule 00:00: mouth [place] 00 every 8 Medical (eight) Branch hours as needed for Abdominal pain. ondansetron 2020-06 Yes [id number] 4mg Take 1 Univers 4 mg 1-22 tablet by ity of disintegrat 00:00: mouth [place] ing tablet 00 every 8 Medica l (eight) Branch hours as needed for Nausea and Vomiting (N/V). sucralfate 2020-06 Yes [id number] 1g Take 1 U nivers 1 gram 1-22 tablet by ity of tablet 00:00: mouth [place] 00 before Medical meals and Branch at bedtime. dicyclomine 2020-06 Yes [id number] 10mg Take 1 Univers (BENTYL) 10 1-22 capsule by it y of mg capsule 00:00: mouth [place] 00 every 8 Medical (eight) Branch hours as needed for Abdominal pain. ondansetron 2020-06 Yes [id number] 4mg Take 1 Univers 4 mg 1-22 tablet by ity of disintegrat 00:00: mouth [place] ing tablet 00 every 8 Medica l (eight) Branch hours as needed for Nausea and Vomiting (N/V). sucralfate 2020-06 Yes [id number] 1g Take 1 U nivers 1 gram 1-22 tablet by ity of tablet 00:00: mouth [place] 00 before Medical meals and Branch at bedtime. dicyclomine 2020-06 Yes [id number] 10mg Take 1 Univers (BENTYL) 10 1-22 capsule by it y of mg capsule 00:00: mouth [place] 00 every 8 Medical (eight) Branch hours as needed for Abdominal pain. ondansetron 2020-06 Yes [id number] 4mg Take 1 Univers 4 mg 1-22 tablet by ity of disintegrat 00:00: mouth [place] ing tablet 00 every 8 Medica l (eight) Branch hours as needed for Nausea and Vomiting (N/V). sucralfate 2020-06 Yes [id number] 1g Take 1 U nivers 1 gram 1-22 tablet by ity of tablet 00:00: mouth [place] 00 before Medical meals and Branch at bedtime. dicyclomine 2020-06 Yes [id number] 10mg Take 1 Univers (BENTYL) 10 1-22 capsule by it y of mg capsule 00:00: mouth [place] 00 every 8 Medical (eight) Branch hours as needed for Abdominal pain. ondansetron 2020-06 Yes [id number] 4mg Take 1 Univers 4 mg 1-22 tablet by ity of disintegrat 00:00: mouth [place] ing tablet 00 every 8 Medica l (eight) Branch hours as needed for Nausea and Vomiting (N/V). sucralfate 2020-06 Yes [id number] 1g Take 1 U nivers 1 gram 1-22 tablet by ity of tablet 00:00: mouth [place] 00 before Medical meals and Branch at bedtime. dicyclomine 2020-06 Yes [id number] 10mg Take 1 Univers (BENTYL) 10 1-22 capsule by it y of mg capsule 00:00: mouth [place] 00 every 8 Medical (eight) Branch hours as needed for Abdominal pain. ondansetron 2020-06 Yes [id number] 4mg Take 1 Univers 4 mg 1-22 tablet by ity of disintegrat 00:00: mouth [place] ing tablet 00 every 8 Medica l (eight) Branch hours as needed for Nausea and Vomiting (N/V). sucralfate 2020-06 Yes [id number] 1g Take 1 U nivers 1 gram 1-22 tablet by ity of tablet 00:00: mouth [place] 00 before Medical meals and Branch at bedtime. sucralfate 2020-06 Yes [id number] 1g Take 1 U nivers 1 gram 1-22 tablet by ity of tablet 00:00: mouth [place] 00 before Medical meals and Branch at bedtime. dicyclomine 2020-06 Yes [id number] 10mg Take 1 Univers (BENTYL) 10 1-22 capsule by it y of mg capsule 00:00: mouth [place] 00 every 8 Medical (eight) Branch hours as needed for Abdominal pain. ondansetron 2020-06 Yes [id number] 4mg Take 1 Univers 4 mg 1-22 tablet by ity of disintegrat 00:00: mouth [place] ing tablet 00 every 8 Medica l (eight) Branch hours as needed for Nausea and Vomiting (N/V). dicyclomine 2020-06 Yes [id number] 10mg Take 1 Univers (BENTYL) 10 1-22 capsule by it y of mg capsule 00:00: mouth [place] 00 every 8 Medical (eight) Branch hours as needed for Abdominal pain. sucralfate 2020-06 Yes [id number] 1g Take 1 U nivers 1 gram 1-22 tablet by ity of tablet 00:00: mouth [place] 00 before Medical meals and Branch at bedtime. dicyclomine 2020-06 Yes [id number] 10mg Take 1 Univers (BENTYL) 10 1-22 capsule by it y of mg capsule 00:00: mouth [place] 00 every 8 Medical (eight) Branch hours as needed for Abdominal pain. ondansetron 2020-06 Yes [id number] 4mg Take 1 Univers 4 mg 1-22 tablet by ity of disintegrat 00:00: mouth [place] ing tablet 00 every 8 Medica l (eight) Branch hours as needed for Nausea and Vomiting (N/V). ondansetron 2020-06 Yes [id number] 4mg Take 1 Univers 4 mg 1-22 tablet by ity of disintegrat 00:00: mouth [place] ing tablet 00 every 8 Medica l (eight) Branch hours as needed for Nausea and Vomiting (N/V). sucralfate 2020-06 Yes [id number] 1g Take 1 U nivers 1 gram 1-22 tablet by ity of tablet 00:00: mouth [place] 00 before Medical meals and Branch at bedtime. dicyclomine 2020-06 Yes [id number] 10mg Take 1 Univers (BENTYL) 10 1-22 capsule by it y of mg capsule 00:00: mouth [place] 00 every 8 Medical (eight) Branch hours as needed for Abdominal pain. ondansetron 2020-06 Yes [id number] 4mg Take 1 Univers 4 mg 1-22 tablet by ity of disintegrat 00:00: mouth [place] ing tablet 00 every 8 Medica l (eight) Branch hours as needed for Nausea and Vomiting (N/V). sucralfate 2020-06 Yes [id number] 1g Take 1 U nivers 1 gram 1-22 tablet by ity of tablet 00:00: mouth [place] 00 before Medical meals and Branch at bedtime. dicyclomine 2020-06 Yes [id number] 10mg Take 1 Univers (BENTYL) 10 1-22 capsule by it y of mg capsule 00:00: mouth [place] 00 every 8 Medical (eight) Branch hours as needed for Abdominal pain. ondansetron 2020-06 Yes [id number] 4mg Take 1 Univers 4 mg 1-22 tablet by ity of disintegrat 00:00: mouth [place] ing tablet 00 every 8 Medica l (eight) Branch hours as needed for Nausea and Vomiting (N/V). sucralfate 2020-06 Yes [id number] 1g Take 1 U nivers 1 gram 1-22 tablet by ity of tablet 00:00: mouth [place] 00 before Medical meals and Branch at bedtime. dicyclomine 2020-06 Yes [id number] 10mg Take 1 Univers (BENTYL) 10 1-22 capsule by it y of mg capsule 00:00: mouth [place] 00 every 8 Medical (eight) Branch hours as needed for Abdominal pain. ondansetron 2020-06 Yes [id number] 4mg Take 1 Univers 4 mg 1-22 tablet by ity of disintegrat 00:00: mouth [place] ing tablet 00 every 8 Medica l (eight) Branch hours as needed for Nausea and Vomiting (N/V). sucralfate 2020-06 Yes [id number] 1g Take 1 U nivers 1 gram 1-22 tablet by ity of tablet 00:00: mouth [place] 00 before Medical meals and Branch at bedtime. dicyclomine 2020-06 Yes [id number] 10mg Take 1 Univers (BENTYL) 10 1-22 capsule by it y of mg capsule 00:00: mouth [place] 00 every 8 Medical (eight) Branch hours as needed for Abdominal pain. ondansetron 2020-06 Yes [id number] 4mg Take 1 Univers 4 mg 1-22 tablet by ity of disintegrat 00:00: mouth [place] ing tablet 00 every 8 Medica l (eight) Branch hours as needed for Nausea and Vomiting (N/V). sucralfate 2020-06 Yes [id number] 1g Take 1 U nivers 1 gram 1-22 tablet by ity of tablet 00:00: mouth [place] 00 before Medical meals and Branch at bedtime. dicyclomine 2020-06 Yes [id number] 10mg Take 1 Univers (BENTYL) 10 1-22 capsule by it y of mg capsule 00:00: mouth [place] 00 every 8 Medical (eight) Branch hours as needed for Abdominal pain. ondansetron 2020-06 Yes [id number] 4mg Take 1 Univers 4 mg 1-22 tablet by ity of disintegrat 00:00: mouth [place] ing tablet 00 every 8 Medica l (eight) Branch hours as needed for Nausea and Vomiting (N/V). sucralfate 2020-06 Yes [id number] 1g Take 1 U nivers 1 gram 1-22 tablet by ity of tablet 00:00: mouth [place] 00 before Medical meals and Branch at bedtime. dicyclomine 2020-06 Yes [id number] 10mg Take 1 Univers (BENTYL) 10 1-22 capsule by it y of mg capsule 00:00: mouth [place] 00 every 8 Medical (eight) Branch hours as needed for Abdominal pain. ondansetron 2020-06 Yes [id number] 4mg Take 1 Univers 4 mg 1-22 tablet by ity of disintegrat 00:00: mouth [place] ing tablet 00 every 8 Medica l (eight) Branch hours as needed for Nausea and Vomiting (N/V). sucralfate 2020-06 Yes [id number] 1g Take 1 U nivers 1 gram 1-22 tablet by ity of tablet 00:00: mouth [place] 00 before Medical meals and Branch at bedtime. dicyclomine 2020-06 Yes [id number] 10mg Take 1 Univers (BENTYL) 10 1-22 capsule by it y of mg capsule 00:00: mouth [place] 00 every 8 Medical (eight) Branch hours as needed for Abdominal pain. ondansetron 2020-06 Yes [id number] 4mg Take 1 Univers 4 mg 1-22 tablet by ity of disintegrat 00:00: mouth [place] ing tablet 00 every 8 Medica l (eight) Branch hours as needed for Nausea and Vomiting (N/V). sucralfate 2020-06 Yes [id number] 1g Take 1 U nivers 1 gram 1-22 tablet by ity of tablet 00:00: mouth [place] 00 before Medical meals and Branch at bedtime. dicyclomine 2020-06 Yes [id number] 10mg Take 1 Univers (BENTYL) 10 1-22 capsule by it y of mg capsule 00:00: mouth [place] 00 every 8 Medical (eight) Branch hours as needed for Abdominal pain. ondansetron 2020-06 Yes [id number] 4mg Take 1 Univers 4 mg 1-22 tablet by ity of disintegrat 00:00: mouth [place] ing tablet 00 every 8 Medica l (eight) Branch hours as needed for Nausea and Vomiting (N/V). sucralfate 2020-06 Yes [id number] 1g Take 1 U nivers 1 gram 1-22 tablet by ity of tablet 00:00: mouth [place] 00 before Medical meals and Branch at bedtime. dicyclomine 2020-06 Yes [id number] 10mg Take 1 Univers (BENTYL) 10 1-22 capsule by it y of mg capsule 00:00: mouth [place] 00 every 8 Medical (eight) Branch hours as needed for Abdominal pain. ondansetron 2020-06 Yes [id number] 4mg Take 1 Univers 4 mg 1-22 tablet by ity of disintegrat 00:00: mouth [place] ing tablet 00 every 8 Medica l (eight) Branch hours as needed for Nausea and Vomiting (N/V). omeprazole 2020-06 No [id number] 20mg Take 1 Univers 20 mg 1-22 12-23 capsule by ity of capsule 00:00: 05:59 mouth [place] 00 :00 daily for Medical 30 days. Branch nystatin Yes [id number] Take 5 mL Univers 100,000 1-25 by mouth 4 ity of unit/mL 00:00: (four) [place] suspension 00 times Medical daily. Branch ondansetron Yes [id number] 4mg Take 1 Univers 4 mg tablet 1-25 tablet by ity of 00:00: mouth [place] 00 every 8 Medical (eight) Branch hours as needed for Nausea and Vomiting (N/V). nystatin Yes [id number] Take 5 mL Univers 100,000 1-25 by mouth 4 ity of unit/mL 00:00: (four) [place] suspension 00 times Medical daily. Branch ondansetron 2019-0 Yes [id number] 4mg Take 1 Univers 4 mg tablet 1-25 tablet by ity of 00:00: mouth [place] 00 every 8 Medical (eight) Branch hours as needed for Nausea and Vomiting (N/V). nystatin 2019-0 Yes [id number] Take 5 mL Univers 100,000 1-25 by mouth 4 ity of unit/mL 00:00: (four) [place] suspension 00 times Medical daily. Branch ondansetron 2019-0 Yes [id number] 4mg Take 1 Univers 4 mg tablet 1-25 tablet by ity of 00:00: mouth [place] 00 every 8 Medical (eight) Branch hours as needed for Nausea and Vomiting (N/V). nystatin 2019-0 Yes [id number] Take 5 mL Univers 100,000 1-25 by mouth 4 ity of unit/mL 00:00: (four) [place] suspension 00 times Medical daily. Branch ondansetron 2019-0 Yes [id number] 4mg Take 1 Univers 4 mg tablet 1-25 tablet by ity of 00:00: mouth [place] 00 every 8 Medical (eight) Branch hours as needed for Nausea and Vomiting (N/V). nystatin 2019-0 Yes [id number] Take 5 mL Univers 100,000 1-25 by mouth 4 ity of unit/mL 00:00: (four) [place] suspension 00 times Medical daily. Branch ondansetron 2019-0 Yes [id number] 4mg Take 1 Univers 4 mg tablet 1-25 tablet by ity of 00:00: mouth [place] 00 every 8 Medical (eight) Branch hours as needed for Nausea and Vomiting (N/V). nystatin 2019-0 Yes [id number] Take 5 mL Univers 100,000 1-25 by mouth 4 ity of unit/mL 00:00: (four) [place] suspension 00 times Medical daily. Branch ondansetron 2019-0 Yes [id number] 4mg Take 1 Univers 4 mg tablet 1-25 tablet by ity of 00:00: mouth [place] 00 every 8 Medical (eight) Branch hours as needed for Nausea and Vomiting (N/V). nystatin 2019-0 Yes [id number] Take 5 mL Univers 100,000 1-25 by mouth 4 ity of unit/mL 00:00: (four) [place] suspension 00 times Medical daily. Branch ondansetron 2019-0 Yes [id number] 4mg Take 1 Univers 4 mg tablet 1-25 tablet by ity of 00:00: mouth [place] 00 every 8 Medical (eight) Branch hours as needed for Nausea and Vomiting (N/V). nystatin 2019-0 Yes [id number] Take 5 mL Univers 100,000 1-25 by mouth 4 ity of unit/mL 00:00: (four) [place] suspension 00 times Medical daily. Branch ondansetron 2019-0 Yes [id number] 4mg Take 1 Univers 4 mg tablet 1-25 tablet by ity of 00:00: mouth [place] 00 every 8 Medical (eight) Branch hours as needed for Nausea and Vomiting (N/V). nystatin 2019-0 Yes [id number] Take 5 mL Univers 100,000 1-25 by mouth 4 ity of unit/mL 00:00: (four) [place] suspension 00 times Medical daily. Branch nystatin 2019-0 Yes [id number] Take 5 mL Univers 100,000 1-25 by mouth 4 ity of unit/mL 00:00: (four) [place] suspension 00 times Medical daily. Branch ondansetron 2019-0 Yes [id number] 4mg Take 1 Univers 4 mg tablet 1-25 tablet by ity of 00:00: mouth [place] 00 every 8 Medical (eight) Branch hours as needed for Nausea and Vomiting (N/V). ondansetron 2019-0 Yes [id number] 4mg Take 1 Univers 4 mg tablet 1-25 tablet by ity of 00:00: mouth [place] 00 every 8 Medical (eight) Branch hours as needed for Nausea and Vomiting (N/V). nystatin 2019-0 Yes [id number] Take 5 mL Univers 100,000 1-25 by mouth 4 ity of unit/mL 00:00: (four) [place] suspension 00 times Medical daily. Branch ondansetron 2019-0 Yes [id number] 4mg Take 1 Univers 4 mg tablet 1-25 tablet by ity of 00:00: mouth [place] 00 every 8 Medical (eight) Branch hours as needed for Nausea and Vomiting (N/V). nystatin 2019-0 Yes [id number] Take 5 mL Univers 100,000 1-25 by mouth 4 ity of unit/mL 00:00: (four) [place] suspension 00 times Medical daily. Branch ondansetron 2019-0 Yes [id number] 4mg Take 1 Univers 4 mg tablet 1-25 tablet by ity of 00:00: mouth [place] 00 every 8 Medical (eight) Branch hours as needed for Nausea and Vomiting (N/V). nystatin 2019-0 Yes [id number] Take 5 mL Univers 100,000 1-25 by mouth 4 ity of unit/mL 00:00: (four) [place] suspension 00 times Medical daily. Branch ondansetron 2019-0 Yes [id number] 4mg Take 1 Univers 4 mg tablet 1-25 tablet by ity of 00:00: mouth [place] 00 every 8 Medical (eight) Branch hours as needed for Nausea and Vomiting (N/V). nystatin 2019-0 Yes [id number] Take 5 mL [facility] 100,000 1-25 by mouth 4 ity of unit/mL 00:00: (four) [place] suspension 00 times Medical daily. Branch ondansetron 2019-0 Yes [id number] 4mg Take 1 Univers 4 mg tablet 1-25 tablet by ity of 00:00: mouth [place] 00 every 8 Medical (eight) Branch hours as needed for Nausea and Vomiting (N/V). nystatin 2019-0 Yes [id number] Take 5 mL [facility] 100,000 1-25 by mouth 4 ity of unit/mL 00:00: (four) [place] suspension 00 times Medical daily. Branch ondansetron 2019-0 Yes [id number] 4mg Take 1 Univers 4 mg tablet 1-25 tablet by ity of 00:00: mouth [place] 00 every 8 Medical (eight) Branch hours as needed for Nausea and Vomiting (N/V). nystatin 2019-0 Yes [id number] Take 5 mL Univers 100,000 1-25 by mouth 4 ity of unit/mL 00:00: (four) [place] suspension 00 times Medical daily. Branch ondansetron 2019-0 Yes [id number] 4mg Take 1 Univers 4 mg tablet 1-25 tablet by ity of 00:00: mouth [place] 00 every 8 Medical (eight) Branch hours as needed for Nausea and Vomiting (N/V). nystatin 2019-0 Yes [id number] Take 5 mL Univers 100,000 1-25 by mouth 4 ity of unit/mL 00:00: (four) [place] suspension 00 times Medical daily. Branch ondansetron 2019-0 Yes [id number] 4mg Take 1 Univers 4 mg tablet 1-25 tablet by ity of 00:00: mouth [place] 00 every 8 Medical (eight) Branch hours as needed for Nausea and Vomiting (N/V). nystatin 2019-0 Yes [id number] Take 5 mL Univers 100,000 1-25 by mouth 4 ity of unit/mL 00:00: (four) [place] suspension 00 times Medical daily. Branch ondansetron 2019-0 Yes [id number] 4mg Take 1 Univers 4 mg tablet 1-25 tablet by ity of 00:00: mouth [place] 00 every 8 Medical (eight) Branch hours as needed for Nausea and Vomiting (N/V). nystatin 2019-0 Yes [id number] Take 5 mL Univers 100,000 1-25 by mouth 4 ity of unit/mL 00:00: (four) [place] suspension 00 times Medical daily. Branch ondansetron 2019-0 Yes [id number] 4mg Take 1 Univers 4 mg tablet 1-25 tablet by ity of 00:00: mouth [place] 00 every 8 Medical (eight) Branch hours as needed for Nausea and Vomiting (N/V). nystatin 2019-0 Yes [id number] Take 5 mL Univers 100,000 1-25 by mouth 4 ity of unit/mL 00:00: (four) [place] suspension 00 times Medical daily. Branch ondansetron 2019-0 Yes [id number] 4mg Take 1 Univers 4 mg tablet 1-25 tablet by ity of 00:00: mouth [place] 00 every 8 Medical (eight) Branch hours as needed for Nausea and Vomiting (N/V). nystatin 2019-0 Yes [id number] Take 5 mL Univers 100,000 1-25 by mouth 4 ity of unit/mL 00:00: (four) [place] suspension 00 times Medical daily. Branch ondansetron 2019-0 Yes [id number] 4mg Take 1 Univers 4 mg tablet 1-25 tablet by ity of 00:00: mouth [place] 00 every 8 Medical (eight) Branch hours as needed for Nausea and Vomiting (N/V). hydrOXYzine 2017-06 No 25 mg, PO, Memoria hydrochlori 0-11 Q6H, 0 l de 15:33: Refill(s) [place] Metronidazo 2017-06 No 500 mg = 1 Memoria le 0-11 tab, PO, l 15:33: Q6H, 0 [place] Refill(s) Omeprazole 2017-06 No 40 mg, PO, [...] in 0-11 PO, Q12H, l 15:33: 0 [place] 00 Refill(s) hydrOXYzine 2017-06 No 25 mg, PO, Memoria hydrochlori 0-11 Q6H, 0 l de 15:33: Refill(s) Metronidazo 2017-06 No 500 mg = 1 Memoria le 0-11 tab, PO, l 15:33: Q6H, 0 [place] 00 Refill(s) Omeprazole 2017-06 No 40 mg, PO, M emoria 0-11 Daily, 0 l 15:33: Refill(s) Dicyclomine 2017-06 No 20 mg, PO, Memoria 0-11 Q6H, 0 l 15:33: Refill(s) ondansetron 2017-06 No 4 mg = 1 Me moria 4 mg oral 0-11 tab, PO, l tablet 15:33: Q12H, 0 [place] 00 Refill(s) Famotidine 2017-06 No 20 mg = 1 Me moria 0-11 tab, PO, l 15:33: Q12H, 0 [place] 00 Refill(s) Ciprofloxac 2017-06 No 500 mg, Mem oria in 0-11 PO, Q12H, l 15:33: 0 [place] 00 Refill(s) hydrOXYzine 2017-06 No 25 mg, PO, Memoria hydrochlori 0-11 Q6H, 0 l de 15:33: Refill(s) Metronidazo 2017-06 No 500 mg = 1 Memoria le 0-11 tab, PO, l 15:33: Q6H, 0 [place] Refill(s) Omeprazole 2017-06 No 40 mg, PO, [...] 0-11 tab, PO, l 15:33: Q12H, 0 [place] 00 Refill(s) Ciprofloxac 2017-06 No 500 mg, Mem oria in 0-11 PO, Q12H, l 15:33: 0 [place] 00 Refill(s) hydrOXYzine 2017-06 No 25 mg, PO, Memoria hydrochlori 0-11 Q6H, 0 l de 15:33: Refill(s) Metronidazo 2017-06 No 500 mg = 1 Memoria le 0-11 tab, PO, l 15:33: Q6H, 0 [place] 00 Refill(s) Omeprazole 2017-06 No 40 mg, PO, M emoria 0-11 Daily, 0 l 15:33: Refill(s) Dicyclomine 2017-06 No 20 mg, PO, Memoria 0-11 Q6H, 0 l 15:33: Refill(s) ondansetron 2017-06 No 4 mg = 1 Me moria 4 mg oral 0-11 tab, PO, l tablet 15:33: Q12H, 0 [place] 00 Refill(s) Famotidine 2017-06 No 20 mg = 1 Me moria 0-11 tab, PO, l 15:33: Q12H, 0 [place] Refill(s) Ciprofloxac 2017-06 No 500 mg, Mem oria in 0-11 PO, Q12H, l 15:33: 0 [place] Refill(s) hydrOXYzine 2017-06 No 25 mg, PO, Memoria hydrochlori 0-11 Q6H, 0 l de 15:33: Refill(s) [place] 00 Metronidazo 2017-06 No 500 mg = 1 Memoria le 0-11 tab, PO, l 15:33: Q6H, 0 [place] Refill(s) Omeprazole 2017-06 No 40 mg, PO, [...] tab, PO, l tablet 15:33: Q12H, 0 [place] 00 Refill(s) Famotidine 2017-06 No 20 mg [...] in 0-11 PO, Q12H, l 15:33: 0 [place] 00 Refill(s) hydrOXYzine 2017-06 No 25 mg, PO, Memoria hydrochlori 0-11 Q6H, 0 l de 15:33: Refill(s) [place] 00 Metronidazo 2017-06 No 500 mg = 1 Memoria le 0-11 tab, PO, l 15:33: Q6H, 0 [place] 00 Refill(s) Omeprazole 2017-06 No 40 mg, PO, M emoria 0-11 Daily, 0 l 15:33: Refill(s) Dicyclomine 2017-06 No 20 mg, PO, Memoria 0-11 Q6H, 0 l 15:33: Refill(s) ondansetron 2017-06 No 4 mg = 1 Me moria 4 mg oral 0-11 tab, PO, l tablet 15:33: Q12H, 0 [place] 00 Refill(s) Metronidazo 2017-06 No 500 mg = 1 Memoria le 0-11 tab, PO, l 15:33: Q6H, 0 [place] 00 Refill(s) Famotidine 2017-06 No 20 mg = 1 Me moria 0-11 tab, PO, l 15:33: Q12H, 0 [place] 00 Refill(s) Ciprofloxac 2017-06 No 500 mg, Mem oria in 0-11 PO, Q12H, l 15:33: 0 [place] 00 Refill(s) hydrOXYzine 2017-06 No 25 mg, PO, Memoria hydrochlori 0-11 Q6H, 0 l de 15:33: Refill(s) Metronidazo 2017-06 No 500 mg = 1 Memoria le 0-11 tab, PO, l 15:33: Q6H, 0 [place] 00 Refill(s) Omeprazole 2017-06 No 40 mg, [...] in 0-11 PO, Q12H, l 15:33: 0 [place] 00 Refill(s) hydrOXYzine 2017-06 No 25 mg, PO, Memoria hydrochlori 0-11 Q6H, 0 l de 15:33: Refill(s) Metronidazo 2017-06 No 500 mg = 1 Memoria le 0-11 tab, PO, l 15:33: Q6H, 0 [place] 00 Refill(s) Omeprazole 2017-06 No 40 mg, PO, M emoria 0-11 Daily, 0 l 15:33: Refill(s) Dicyclomine 2017-06 No 20 mg, PO, Memoria 0-11 Q6H, 0 l 15:33: Refill(s) Dicyclomine 2017-06 No 20 mg, PO, Memoria 0-11 Q6H, 0 l 15:33: Refill(s) ondansetron 2017-06 No 4 mg = 1 Me moria 4 mg oral 0-11 tab, PO, l tablet 15:33: Q12H, 0 [place] 00 Refill(s) Famotidine 2017-06 No 20 mg = 1 Me moria 0-11 tab, PO, l 15:33: Q12H, 0 [place] 00 Refill(s) Ciprofloxac 2017-06 No 500 mg, Mem oria in 0-11 PO, Q12H, l 15:33: 0 [place] 00 Refill(s) hydrOXYzine 2017-06 No 25 mg, PO, Memoria hydrochlori 0-11 Q6H, 0 l de 15:33: Refill(s) Metronidazo 2017-06 No 500 mg = 1 Memoria le 0-11 tab, PO, l 15:33: Q6H, 0 [place] 00 Refill(s) Omeprazole 2017-06 No 40 mg, PO, M emoria 0-11 Daily, 0 l 15:33: Refill(s) Dicyclomine 2017-06 No 20 mg, PO, Memoria 0-11 Q6H, 0 l 15:33: Refill(s) ondansetron 2017-06 No 4 mg = 1 Me moria 4 mg oral 0-11 tab, PO, l tablet 15:33: Q12H, 0 [place] 00 Refill(s) Famotidine 2017-06 No 20 mg = 1 Me moria 0-11 tab, PO, l 15:33: Q12H, 0 [place] 00 Refill(s) Ciprofloxac 2017-06 No 500 mg, Mem oria in 0-11 PO, Q12H, l 15:33: 0 [place] 00 Refill(s) ondansetron 2017-06 No 4 mg = 1 Me moria 4 mg oral 0-11 tab, PO, l tablet 15:33: Q12H, 0 [place] 00 Refill(s) hydrOXYzine 2017-06 No 25 mg, PO, Memoria hydrochlori 0-11 Q6H, 0 l de 15:33: Refill(s) Metronidazo 2017-06 No 500 mg = 1 Memoria le 0-11 tab, PO, l 15:33: Q6H, 0 [place] 00 Refill(s) Omeprazole 2017-06 No 40 mg, PO, M emoria 0-11 Daily, 0 l 15:33: Refill(s) Metronidazo 2017-06 No 500 mg = 1 Memoria le 0-11 tab, PO, l 15:33: Q6H, 0 [place] 00 Refill(s) Omeprazole 2017-06 No 40 mg, PO, M emoria 0-11 Daily, 0 l 15:33: Refill(s) Dicyclomine 2017-06 No 20 mg, PO, Memoria 0-11 Q6H, 0 l 15:33: Refill(s) Dicyclomine 2017-06 No 20 mg, PO, Memoria 0-11 Q6H, 0 l 15:33: Refill(s) ondansetron 2017-06 No 4 mg = 1 Me moria 4 mg oral 0-11 tab, PO, l tablet 15:33: Q12H, 0 [place] Refill(s) Famotidine 2017-06 No 20 mg = 1 Me moria 0-11 tab, PO, l 15:33: Q12H, 0 [place] 00 Refill(s) Ciprofloxac 2017-06 No 500 mg, Mem oria in 0-11 PO, Q12H, l 15:33: 0 [place] 00 Refill(s) hydrOXYzine 2017-06 No 25 mg, PO, Memoria hydrochlori 0-11 Q6H, 0 l de 15:33: Refill(s) ondansetron 2017-06 No 4 mg = 1 Me moria 4 mg oral 0-11 tab, PO, l tablet 15:33: Q12H, 0 [place] 00 Refill(s) Famotidine 2017-06 No 20 mg = 1 Me moria 0-11 tab, PO, l 15:33: Q12H, 0 [place] 00 Refill(s) Ciprofloxac 2017-06 No 500 mg, Mem oria in 0-11 PO, Q12H, l 15:33: 0 [place] 00 Refill(s) hydrOXYzine 2017-06 No 25 mg, PO, Memoria hydrochlori 0-11 Q6H, 0 l de 15:33: Refill(s) Metronidazo 2017-06 No 500 mg = 1 Memoria le 0-11 tab, PO, l 15:33: Q6H, 0 [place] 00 Refill(s) Omeprazole 2017-06 No 40 mg, PO, M emoria 0-11 Daily, 0 l 15:33: Refill(s) Famotidine 2017-06 No 20 mg = 1 Me moria 0-11 tab, PO, l 15:33: Q12H, 0 [place] 00 Refill(s) Dicyclomine 2017-06 No 20 mg, PO, Memoria 0-11 Q6H, 0 l 15:33: Refill(s) ondansetron 2017-06 No 4 mg = 1 Me moria 4 mg oral 0-11 tab, PO, l tablet 15:33: Q12H, 0 [place] 00 Refill(s) Famotidine 2017-06 No 20 mg = 1 Me moria 0-11 tab, PO, l 15:33: Q12H, 0 [place] 00 Refill(s) Ciprofloxac 2017-06 No 500 mg, Mem oria in 0-11 PO, Q12H, l 15:33: 0 [place] 00 Refill(s) hydrOXYzine 2017-06 No 25 mg, [...] tab, PO, l tablet 15:33: Q12H, 0 [place] 00 Refill(s) Famotidine 2017-06 No 20 mg = 1 Me moria 0-11 tab, PO, l 15:33: Q12H, 0 [place] 00 Refill(s) Ciprofloxac 2017-06 No 500 mg, Mem oria in 0-11 PO, Q12H, l 15:33: 0 [place] 00 Refill(s) Ciprofloxac 2017-06 No 500 mg, Mem oria in 0-11 PO, Q12H, l 15:33: 0 [place] 00 Refill(s) hydrOXYzine 2017-06 No 25 mg, PO, Memoria hydrochlori 0-11 Q6H, 0 l de 15:33: Refill(s) Metronidazo 2017-06 No 500 mg = 1 Memoria le 0-11 tab, PO, l 15:33: Q6H, 0 [place] 00 Refill(s) Omeprazole 2017-06 No 40 mg, PO, M emoria 0-11 Daily, 0 l 15:33: Refill(s) Dicyclomine 2017-06 No 20 mg, PO, Memoria 0-11 Q6H, 0 l 15:33: Refill(s) ondansetron 2017-06 No 4 mg = 1 Me moria 4 mg oral 0-11 tab, PO, l tablet 15:33: Q12H, 0 [place] 00 Refill(s) Famotidine 2017-06 No 20 mg = 1 Me moria 0-11 tab, PO, l 15:33: Q12H, 0 [place] 00 Refill(s) Ciprofloxac 2017-06 No 500 mg, Mem oria in 0-11 PO, Q12H, l 15:33: 0 [place] 00 Refill(s) hydrOXYzine 2017-06 No 25 mg, [...] tab, PO, l tablet 15:33: Q12H, 0 [place] 00 Refill(s) Famotidine 2017-06 No 20 mg = 1 Me moria 0-11 tab, PO, l 15:33: Q12H, 0 [place] 00 Refill(s) Ciprofloxac 2017-06 No 500 mg, [...] 0-11 tab, PO, l 15:33: Q12H, 0 [place] 00 Refill(s) Ciprofloxac 2017-06 No 500 mg, Mem oria in 0-11 PO, Q12H, l 15:33: 0 [place] 00 Refill(s) omeprazole 2017-06- No Univer s [...] of (CALCIUM 14:20: [place] 500 ORAL) 36 [facility] CALCIUM 2016-0 Yes Take by Univers CARBONATE 3-02 mouth. ity of (CALCIUM 14:20: [place] 500 ORAL) 36 [facility] Immunizations Ordered Filled Immunization Date Status Comments [facility] e Immunization Name Name TD 2022-07-19 Completed University of 00:00:00 [facility] Influenza Virus 2022-07-19 Completed Universit y of Vaccine Quad IM, 00:00:00 [facility] dical Preserv and ABX Branch Free 6 MO-64 YRS TDAP 2022-07-19 Completed University of 00:00:00 [facility] Influenza Virus 2022-07-19 Completed Universit y of Vaccine Quad IM, 00:00:00 [facility] dical Preserv and ABX Branch Free 6 MO-64 YRS TDAP 2022-07-19 Completed University of 00:00:00 [facility] Influenza Virus 2022-07-19 Completed Universit y of Vaccine Quad IM, 00:00:00 [facility] dical Preserv and ABX Branch Free 6 MO-64 YRS TDAP 2022-07-19 Completed University of 00:00:00 [facility] Influenza Virus 2022-07-19 Completed Universit y of Vaccine Quad IM, 00:00:00 [facility] dical Preserv and ABX Branch Free 6 MO-64 YRS TDAP 2022-07-19 Completed University of 00:00:00 [facility] Influenza Virus 2022-07-19 Completed Universit y of Vaccine Quad IM, 00:00:00 [facility] dical Preserv and ABX Branch Free 6 MO-64 YRS TDAP 2022-07-19 Completed University of 00:00:00 [facility] Influenza Virus 2022-07-19 Completed Universit y of Vaccine Quad IM, 00:00:00 [facility] dical Preserv and ABX Branch Free 6 MO-64 YRS TDAP 2022-07-19 Completed University of 00:00:00 [facility] Influenza Virus 2022-07-19 Completed Universit y of Vaccine Quad IM, 00:00:00 [place] [facility]ical Preserv and ABX Branch Free 6 MO-64 YRS TDAP 2022-07-19 Completed University of 00:00:00 [facility] Influenza Virus 2022-07-19 Completed Universit y of Vaccine Quad IM, 00:00:00 [place] [facility] dical Preserv and ABX Branch Free 6 MO-64 YRS TDAP 2022-07-19 Completed University of 00:00:00 [facility] Influenza Virus 2022-07-19 Completed Universit y of Vaccine Quad IM, 00:00:00 [place] [facility] dical Preserv and ABX Branch Free 6 MO-64 YRS TDAP 2022-07-19 Completed University of 00:00:00 [facility] Influenza Virus 2022-07-19 Completed Universit y of Vaccine Quad IM, 00:00:00 [facility] dical Preserv and ABX Branch Free 6 MO-64 YRS TDAP 2022-07-19 Completed University of 00:00:00 [facility] Influenza Virus 2022-07-19 Completed Universit y of Vaccine Quad IM, 00:00:00 [facility] dical Preserv and ABX Branch Free 6 MO-64 YRS TDAP 2022-07-19 Completed University of 00:00:00 [facility] Influenza Virus 2022-07-19 Completed Universit y of Vaccine Quad IM, 00:00:00 [place] [facility] dical Preserv and ABX Branch Free 6 MO-64 YRS TDAP 2022-07-19 Completed University of 00:00:00 [facility] Influenza Virus 2022-07-19 Completed Universit y of Vaccine Quad IM, 00:00:00 [facility] dical Preserv and ABX Branch Free 6 MO-64 YRS TDAP 2022-07-19 Completed University of 00:00:00 [facility] Influenza Virus 2022-07-19 Completed Universit y of Vaccine Quad IM, 00:00:00 [facility] dical Preserv and ABX Branch Free 6 MO-64 YRS TDAP 2022-07-19 Completed University of 00:00:00 [facility] Influenza Virus 2022-07-19 Completed Universit y of Vaccine Quad IM, 00:00:00 [place] [facility] dical Preserv and ABX Branch Free 6 MO-64 YRS TDAP 2022-07-19 Completed University of 00:00:00 [facility] Influenza Virus 2022-07-19 Completed Universit y of Vaccine Quad IM, 00:00:00 [place] [facility] dical Preserv and ABX Branch Free 6 MO-64 YRS TDAP 2022-07-19 Completed University of 00:00:00 [facility] Influenza Virus 2022-07-19 Completed Universit y of Vaccine Quad IM, 00:00:00 [facility] dical Preserv and ABX Branch Free 6 MO-64 YRS TDAP 2022-07-19 Completed University 00:00:00 [facility] Influenza Virus 2022-07-19 Completed Universit y of Vaccine Quad IM, 00:00:00 [place] [facility] dical Preserv and ABX Branch Free 6 MO-64 YRS Vital Signs Vital Name Observation Time Observation Value Comments Source Systolic blood 2022-11-15 11:00:00 128 mm[Hg] Univer sity of pressure [facility] Diastolic blood 2022-11-15 11:00:00 85 mm[Hg] Unive rsity of [facility] Heart rate 2022-11-15 11:00:00 72 /min [facility] [place] [facility] Respiratory rate 2022-11-15 11:00:00 17 /min [facility] Oxygen saturation in 2022-11-15 11:00:00 96 /min [facility] Arterial blood by [facility] Pulse oximetry [place] Body temperature 2022-11-15 09:37:[address] [facility] Body height 2022-11-15 09:37:00 177.8 cm [facility] Body weight 2022-11-15 09:37:00 86.183 kg [facility] [place] [facility] BMI 2022-11-15 09:37:00 27.26 kg/m2 [facility] Systolic blood 2022-08-09 13:52:00 116 mm[Hg] Univer sity of pressure [facility] Diastolic blood 2022-08-09 13:52:00 76 mm[Hg] Unive rsity of pressure [facility] Heart rate 2022-08-09 13:52:00 62 /min [facility] [place] [facility] ty [facility] Body temperature 2022-08-09 13:52:00 36.44 Carol [facility] Body height 2022-08-09 13:52:00 180.3 cm [facility] [place] [facility] Body weight 2022-08-09 13:52:00 89.812 kg [facility] [place] [facility] BMI 2022-08-09 13:52:00 27.62 kg/m2 [facility] [place] [facility] Oxygen saturation in 2022-08-09 13:52:00 98 /min University of Arterial blood by [facility] faina Pulse oximetry Branch Systolic blood 2022-07-19 20:02:00 107 mm[Hg] Univer sity of pressure [place] [facility] Diastolic blood 2022-07-19 20:02:00 67 mm[Hg] Unive rsity of pressure [place] [facility] Heart rate 2022-07-19 20:02:00 75 /min [facility] [place] [facility] Body temperature 2022-07-19 20:02:00 36.89 Carol Univ ersity [facility] [place] [facility] Body height 2022-07-19 20:02:00 180.3 cm [facility] [place] [facility] Body weight 2022-07-19 20:02:00 90.81 kg [facility] [place] [facility] BMI 2022-07-19 20:02:00 27.92 kg/m2 [facility] [place] [facility] Oxygen saturation in 2022-07-19 20:02:00 100 /min University of Arterial blood by [facility] Pulse oximetry Branch Systolic blood 2021-04-27 17:30:43 120 mm[Hg] Univer sity of pressure [place] [facility] Diastolic blood 2021-04-27 17:30:43 75 mm[Hg] Unive rsity of pressure [place] [facility] Heart rate 2021-04-27 17:30:43 70 /min [facility] [place] [facility] Body temperature 2021-04-27 17:30:43 36.78 Carol Univ ersity [facility] [place] [facility] Respiratory rate 2021-04-27 17:30:43 18 /min Univ ersity [facility] [place] [facility] Oxygen saturation in 2021-04-27 17:30:43 100 /min University of Arterial blood by [facility] Pulse oximetry Branch Heart Rate 2018-03-16 15:31:00 Jefferson Mccall Weight 2018-03-16 15:31:00 [facility] Cal Height 2018-03-16 15:31:00 180.34 cm [facility] BMI Calculated 2018-03-16 15:31:00 Quang Malagon Systolic (mm Hg) 2018-03-16 15:31:00 Ming Mccall Diastolic (mm Hg) 2018-03-16 15:31:00 Zeeshan Mccall Procedures Procedure Date / Time Performed Performing Clinician Sour e EKG-12 LEAD 2022-11-15 11:49:31 Ashley Gayle [facility] XR CHEST 1 VW 2022-11-15 10:25:00 Ashley Gayle [facility] AC ABG + LACTIC ACID 2022-11-15 10:08:00 Ashley Gayle [facility] LIPASE 2022-11-15 09:53:00 Ashley Gayle [facility] TROPONIN I 2022-11-15 09:53:00 Ashley Gayle [facility] COMP. METABOLIC PANEL 2022-11-15 09:53:00 Ashley Gayle [facility] ([id number]) [facility] CBC WITH DIFF 2022-11-15 09:53:00 Ashley Gayle [facility] N-TERMINAL PRO-BNP 2022-11-15 09:53:00 Ashley Gayle [facility] NOTICE OF PRIVACY 2022-11-15 09:35:30 Doctor Unassigned, No [facility] CONSENT/REFUSAL FOR 2022-11-15 09:31:42 Doctor Unassigned, No [facility] DIAGNOSIS AND [facility] TREATMENT DISCLOSURE AND 2022-08-10 06:01:00 Doctor Unassigned, No [facility] CONSENT, MEDICAL AND [facility] Medical [facility] SURGICAL PROCEDURES TDAP VACCINE, >11 YRS, 2022-07-19 20:16:53 Jluis Whelan [facility] FLU VACC ([id number]), 2022-07-19 20:16:53 Jluis Whelan [facility] 6 MO-64 YRS, .5ML, IM, Medical [place] QUAD (FLUCELVAX) ASSIGNMENT OF BENEFITS 2022-07-19 19:23:15 Doctor Unassigned, No [facility] [place] [facility] CT ABDOMEN PELVIS W 2021-04-27 16:08:21 Bran Red [facility] CONTRAST [facility] LIPASE 2021-04-27 15:45:00 Red, [facility] COMP. METABOLIC PANEL 2021-04-27 15:45:00 Bran Red [facility] ([id number]) Medical [place] CBC WITH DIFF 2021-04-27 15:45:00 Red, [facility] URINALYSIS 2021-04-27 15:45:00 Red, [facility] NOTICE OF PRIVACY 2021-04-27 14:21:16 Doctor Unassigned, No [facility] Name [facility] CONSENT/REFUSAL FOR 2021-04-27 14:20:59 Doctor Unassigned, No [facility] DIAGNOSIS AND [facility] TREATMENT Encounters Start End Encounter Admission Attending Care Care Encounter Source Date/Time Date/Time Type Type Clinicians Facility Department ID 2022-11-12 Outpatient [facility] [id number] Univers 10:45:07 PIOTR [facility] 2022-09-13 Outpatient Mar[facility] [id number] Univers 15:45:30 PIOTR [facility] 2022-11-23 2022-11-23 Outpatient [facility] [id number] Andrew 17:12:36 17:12:36 0620 [facility] 2022-11-17 2022-11-17 Outpatient [facility] [id number] Andrew 10:53:37 10:53:37 0614 [facility] 2022-11-15 2022-11-15 Emergency X [facility] ERT [id number] Univers 04:39:00 06:47:00 ASHLEY ayala [facility] 2022-11-15 2022-11-15 Emergency [facility] [id number] Univers 04:39:00 06:47:00 [id number] [id number] [facility] [id number] [place] [id number] Branch 2022-10-27 2022-10-27 Telephone [facility] [id number] Univers 00:00:00 00:00:00 Piotr KRISTINE [id number] i ty [id number] [id number] Va dical [address] 2022-10-25 2022-10-25 Outpatient [facility] [id number] Andrew 13:09:06 13:09:06 0522 [facility] 2022-10-12 2022-10-12 Outpatient [facility] [id number] Andrew 13:56:07 13:56:07 0509 [facility] 2022-10-06 2022-10-06 Outpatient [facility] [id number] Andrew 15:19:09 15:19:09 0503 [facility] 2022-09-28 2022-09-28 Outpatient [facility] [id number] Andrew 13:29:12 13:29:12 0425 [facility] 2022-09-27 2022-09-27 Telephone [facility] [id number] Univers 00:00:00 00:00:00 Piotr KRISTINE [id number] i ty [facility] [id number] [id number] [place] dic[address] 2022-09-17 2022-09-17 Telephone [facility] [id number] Univers 00:00:00 00:00:00 Piotr KRISTINE [id number] i [id number] [id number] [place]ical N[place] [address] [place] [address] 2022-09-15 2022-09-15 Telephone Gabrielle Forman [facility] [id number] Univers 00:00:00 00:00:00 Miguel Angel CARMONA [id number] i [id number] [id number] [address] 2022-09-13 2022-09-13 Telephone [facility] [id number] Univers 00:00:00 00:00:00 Piotr CARMONA [id number] i ty [facility] [id number] [id number] [facility] [address] [facility] 2022-08-10 2022-08-10 Orders Doctor PIERRE [id number] Univers 00:00:00 00:00:00 Only Unassigned, PADMINI 350.1.13.10 ity of [place] [facility] 4.2.7.2.686 Ed[place] as [id number] [address] 2022-08-09 2022-08-09 Outpatient R BERNARDO [facility] [id number] Univers 08:00:00 10:23:38 PIOTR rohitwilli [facility] 2022-08-09 2022-08-09 [facility] [id number] Univers 08:00:00 10:23:38 Visit Piotr CARMONA 350.1.13.10 i ty of [place]2.7.2.[place] [phone] [address] 2022-07-20 2022-07-20 Telephone Tip [facility] [id number] Univers 00:00:00 00:00:00 Jluis [facility] 350.1.13.10 it y of [place] 4.2.7.2.686 Edwar as KELIN?BLEA [phone] [facility] 044 [facility] OFFICE [facility] 2022-07-19 2022-07-19 Outpatient R TIP [facility] [id number] Univers 14:00:00 17:27:03 JLUIS itwilli [facility] 2022-07-19 2022-07-19 Ged Instructor Lab, Horacio - Marc [facility] [id number] Univers 15:00:00 15:15:00 Visit Jluis Whelan 350.1.13.10 ity of [place] 4.2.7.2.686 Edwar as KLEIN?BLEA [phone] [facility] [address] [facility] OFFICE [facility] 2022-07-19 2022-07-19 [facility] [id number] Univers 14:00:00 14:30:00 Visit Jluis MULLEN 350.1.13.10 it y of [place] 4.2.7.2.686 Edwar as KELIN?BLEA [phone] Me dical KNEY [address] [facility] OFFICE [facility] 2022-07-19 2022-07-19 Orders Doctor PIERRE [id number] Univers 00:00:00 00:00:00 Only Unassigned, PADMINI 350.1.13.10 ity of [place] [facility] 4.2.7.2.686 Edwar as [phone] [facility] [address] [place] 2022-07-12 2022-07-12 Outpatient R TIP [facility] [id number] Univers 13:00:00 13:00:00 JLUIS ayala [facility] 2021-04-27 2021-04-27 Emergency X [facility] ERT [id number] Univers 08:27:00 11:54:00 BRAN ayala [facility] 2021-04-27 2021-04-27 Emergency [facility] [id number] Univers 08:27:00 11:54:00 Bran CARMONA 350.1.13.10 i ty [facility] 4[place] [phone] [facility] [address] [place] 2018-05-26 2018-05-28 Outside nullFlavo MNA [id number] Memoria 16:20:00 05:59:59 Medical r Neurology 02 l Records Payal [place] 2018-05-26 2018-05-28 Outside nullFlavo MNA [id number] Memoria 16:20:00 05:59:59 Medical r Neurology 02 l Records Payal Cortésann 2018-05-26 2018-05-27 Outpatient MHMISCHER MHMISCHER [id number] 10:20:00 23:59:59 02 2018-04-21 2018-04-21 Ambulatory nullFlavo MNA [id number] Memoria 17:15:00 17:15:00 Pre-Reg r Neurology 01 l Payal Mccall 2018-04-21 2018-04-21 Ambulatory nullFlavo MNA [id number] Memoria 17:15:00 17:15:00 Pre-Reg r Neurology 01 l Payal Mccall 2018-04-21 2018-04-21 Outpatient MHIE BAUDILIOIE [id number] Memoria 11:15:00 11:15:00 01 miguel angel Mccall 2018-04-21 2018-04-21 Outpatient BAUDILIO WoodyNJSCHER MHMISCHER [id number] 11:15:00 11:15:00 Bebeto 01 Benitez 2018-03-22 2018-03-24 Outside nullFlavo MNA [id number] Memoria 22:51:00 04:59:59 Medical r Neurology 01 l Records Payal Mccall 2018-03-22 2018-03-24 Outside nullFlavo MNA [id number] Memoria 22:51:00 04:59:59 Medical r Neurology 01 l Records Payal Mccall 2018-03-22 2018-03-24 Phone nullFlavo MNA [id number] Memoria 21:22:00 04:59:59 Message r Neurology 00 l Payal Mccall 2018-03-22 2018-03-24 Phone nullFlavo MNA [id number] Memoria 21:22:00 04:59:59 Message r Neurology 00 l Payal Mccall 2018-03-22 2018-03-23 Outpatient MHMISCHER MHMISCHER [id number] 17:51:00 23:59:59 01 2018-03-22 2018-03-23 Outpatient MHMISCHER MHMISCHER [id number] 16:22:00 23:59:59 00 2018-03-16 2018-03-17 Outpatient nullFlavo MNA [id number] Memoria 16:00:00 04:59:59 r Neurology 00 l Payal Mccall 2018-03-16 2018-03-17 Outpatient nullFlavo MNA [id number] Memoria 16:00:00 04:59:59 r Neurology 00 l Payal Cortésann 2018-03-16 2018-03-16 Outpatient BAUDILIO WoodyNJSCHER MHMISCHER [id number] 11:00:00 23:59:59 Bebeto 00 [place] 2018-03-16 2018-03-16 Outpatient MHIE BAUDILIOIE [id number] Memoria 11:00:00 11:00:00 00 l Cal Results Test Description Test Time Test Comments Results Result Comments Source CULTURE, URINE 2022-11-20 SPECIMEN NUMBER: 17:10:00 [id number] CULTURE, URINE SPECIMEN NUMBER: [id number] SPECIMEN COMMENT: URINE SOURCE: URINE REPORT STATUS: FINAL ISOLATE NUMBER 1: ORGANISM: 11/19/2022 10-50,000 CFU/ML ENTEROCOCCUS SPECIES (GROUP D) IDENTIFICATION: 11/20/2022 ENTEROCOCCUS SPECIES (GROUP D) ENTEROCOCCUS SP. AMPI CILLIN SENSITIVE <=2CIPROFLOXACIN SENSITIVE <=1LEVOFLOXACIN SENSITIVE 1NITROFURANTOIN SENSITIVE <=32TETRACYCLINE RESISTANT >8VANCOMYCIN SENSITIVE 2 NOTE: NUMBERS DISPLAYED REPRESENT MINIMUM INHIBITORY CONCENTRATION (GONZALES) WHICH IS EXPRESSED IN MCG/ML. CT/NG, NAAT, URINE 2022-11-18 20:49:48 Test Item Value Reference Range Interpretation Comme nts CHLAMYDIA, NAAT, URINE (test NEGATIVE NEGATIVE Testing is performed with Serge code = 33861) JHONY 6800/880 0 systems usingreal-time polymerase chain reaction (PCR) method. A negative result does not exclude low level infection, spec imensampling error, or collection e rror. GONORRHEA, NAAT, URINE (test NEGATIVE NEGATIVE Testing is performed with Serge code = 70104) JHONY 6800/880 0 systems usingreal-time polymerase chain reaction (PCR) method. A negative result does not exclude low level infection, spec imensampling error, or collection e rror. TRICHOMONAS, NAAT, MALE UR/[id number] 19:00:11 Test Item Value Reference Range Interpretation Comments TRICHOMONAS, NAAT NEGATIVE NEGATIVE The perfo rmance of this (test code = assay [place] [address]) specifically ap proved bythe FDA for the Heraclio he jhony PCR media swab juan ection device from mal eurethral sources. The pe rformance characteristics for these deviceshave bee n validated by [facility] [place] CPL isauthorized un tatiana the Clinical [facility] [employer] nd[employer] (CLIA) a s qualified to perform high complexity testing. Testin g is performed with the cVidyaas 6800/8800 systems usingreal-time Polymerase Chain Reaction (PCR) method The performance of this assay has not b een specifically ap proved bythe FDA for the Heraclio he jhony PCR media swab juan ection device from mal eurethral sources. The pe rformance characteristics for these deviceshave bee n validated by [facility] [place]. CPL isauthorized un tat[place] the [facility] (CLIA) a s qualified to perform high complexity testing. Testin g is performed with the Serge Jhony 6800/8800 systems usingreal-time Polymerase Chain Reaction (PCR) method A negative resu lt does not exclude low lev el infection, spec imensampling error, or colle ction error. SOURCE (test code urine = 19607) HERPES SIMPLEX AB, [id number] 13:59:27 Test Item Value Reference Range Interpretation Comments HERPES SIMPLEX AB, 0.58 INDEX SEE BELOW INTERPRE TATION UNITS IgM (test code = RANGE ----- --------- 71493) ----- ----- NEG ATIVE INDEX <=0.89 EQ UIVOCAL INDEX 0.90-1.09 POSITIVE INDEX >=1.10 HERPES SIMPLEX 1/2 AB, IgG [id number] 05:12:09 Test Item Value Reference Range Interpretation Comments HERPES SIMPLEX 1 6.510 INDEX SEE BELOW H INTERPRETA TION UNITS AB, IgG (test code RANGE --- = 56037) ----- ----- NON -REACTIVE INDEX <1.000 RE ACTIVE INDEX >=1.00 0 HERPES SIMPLEX 2 0.076 INDEX SEE BELOW INTERPRETA TION UNITS AB, IgG (test code RANGE --- = 98627) ----- ----- NON -REACTIVE INDEX <1.000 RE ACTIVE INDEX >=1.00 0 HIV 1/2 4TH GEN, RFLX [id number] 05:12:09 Test Item Value Reference Range Interpretation Comments HIV 1/2 4TH GEN, RFLX CONF (test NON-REACTIVE NON-REACTIVE code = 3514) HEPATITIS PANEL, [id number] 05:12:09 Test Item Value Reference Range Interpretation Comments HEPATITIS A IgM (test NON-REACTIVE NON-REACTIVE code = 11101) HEPATITIS B CORE IgM NON-REACTIVE NON-REACTIVE (test code = 4644) HEPATITIS B SURF AG NON-REACTIVE NON-REACTIVE (test code = 2739) HEPATITIS C ANTIBODY NON-REACTIVE NON-REACTIVE (test code = 4675) INTERPRETATION (NOTE) Hepatitis A HEPATITIS A: (test code sero logy shows no = 2552) evidence of acu te hepatitis A. INTERPRETATION (NOTE) Hepatitis B HEPATITIS B: (test code sero logy shows no = 69246) evidence of acu te hepatitis B and no indication of exposure to hepatitis B vir us in the previous alex eight months. INTERPRETATION (NOTE) Hepatitis C HEPATITIS C: (test code sero logy shows no = 47424) evidence of exposure to hepatitisC viru s at this time. I t can take up to 12 months after exposure tothe hepatitis C vir us for antibodies to become detectab le in the blood in certain patient s. [id number] 03:47:09 Test Item Value Reference Range Interpretation Comments RPR RESULT (test NON-REACTIVE NON-REACTIVE code = 3501) RPR TITER (test NOT INDIC. NOT INDIC. UNLESS OTHE RWISE code = 3500) TITER INDICATED, ALL TESTING PERFORMED AT [facility]. [address] [place] [address] 4 LABORATORY DIRE CTOR: SHIELA RICE M.D. CLIA NUMBER [id number] [place] [id number] OCCULT BLD,FECAL,IMMUNOASSAY [id number] 10:54:19 Test Item Value Reference Range Interpretation Comments OCCULT BLD, FECAL NEGATIVE NEGATIVE UNLESS OT HERWISE (test code = 24580) INDICATE D, ALL TESTING PERFORMED AT [facility] [address] [place] [id number] [place] [address] DIRECTOR: MICHAEL LANDERS M.D. C MAURIZIO NUMBER [id number] [place] O. [id number] 03:27:48 Test Item Value Reference Range Interpretation Comments LIPASE (test code = 2058) 26 U/L 13-60 [id number] 03:27:48 Test Item Value Reference Range Interpretation Comments AMYLASE (test code = 35 U/L 28-100 UNLESS OTHERWISE 2205) INDICATED, ALL TESTING PERFORMED AT [facility] [address] [place] [address] MARYANN SONIA DIRECTOR: Pia DIEGO MAURIZIO NUMBER [id number] [place]EDIT[place] N O. [id number] CHLAMYDIA, NAAT, [id number] 18:32:30 Test Item Value Reference Range Interpretation Comments CHLAMYDIA, NAAT, NEGATIVE NEGATIVE Testing is performed with URINE (test code Serge JHONY 6800/8800 = 35118) systems usingre al-time polymerase koko n reaction (PCR) method. A negative result does not exclude low level infection , specimensamplin g error, or collection erro r. GONORRHEA, NAAT, [id number] 18:32:30 Test Item Value Reference Range Interpretation Comments GONORRHEA, NAAT, NEGATIVE NEGATIVE Testing is performed with URINE (test code Serge JHONY 6800/8800 = 57607) systems usingre al-time polymerase koko n reaction (PCR) method. A negative result does not exclude low level infection , specimensamplin g error, or collection erro r. HERPES SIMPLEX AB, [id number] 13:53:23 Test Item Value Reference Range Interpretation Comments HERPES SIMPLEX AB, 0.54 INDEX SEE BELOW INTERPRE TATION UNITS IgM (test code = RANGE ----- --------- 26126) ----- ----- NEG ATIVE INDEX <=0.89 EQ UIVOCAL INDEX 0.90-1.09 POSITIVE INDEX >=1.10 HIV 1/2 4TH GEN, RFLX [id number] 07:01:13 Test Item Value Reference Range Interpretation Comments HIV 1/2 4TH GEN, RFLX CONF (test NON-REACTIVE NON-REACTIVE code = 3514) HEPATITIS PANEL, [id number] 07:01:13 Test Item Value Reference Range Interpretation Comments HEPATITIS A IgM (test NON-REACTIVE NON-REACTIVE code = 20266) HEPATITIS B CORE IgM NON-REACTIVE NON-REACTIVE (test code = 4644) HEPATITIS B SURF AG NON-REACTIVE NON-REACTIVE (test code = 2739) HEPATITIS C ANTIBODY NON-REACTIVE NON-REACTIVE (test code = 4675) INTERPRETATION (NOTE) Hepatitis A HEPATITIS A: (test code sero logy shows no = 2552) evidence of acu te hepatitis A. INTERPRETATION (NOTE) Hepatitis B HEPATITIS B: (test code sero logy shows no = 10565) evidence of acu te hepatitis B and no indication of exposure to hepatitis B vir us in the previous alex eight months. INTERPRETATION (NOTE) Hepatitis C HEPATITIS C: (test code sero logy shows no = 97676) evidence of exposure to hepatitisC viru s at this time. I t can take up to 12 months after exposure tothe hepatitis C vir us for antibodies to become detectab le in the blood in certain patient s. HERPES SIMPLEX 1/2 AB, IgG [id number] 07:01:13 Test Item Value Reference Range Interpretation Comments HERPES SIMPLEX 1 7.520 INDEX SEE BELOW H INTERPRETA TION UNITS AB, IgG (test code RANGE --- = 76491) ----- ----- NON -REACTIVE INDEX <1.000 RE ACTIVE INDEX >=1.00 0 HERPES SIMPLEX 2 0.076 INDEX SEE BELOW INTERPRETA TION UNITS AB, IgG (test code RANGE --- = 43113) ----- ----- NON -REACTIVE INDEX <1.000 RE ACTIVE INDEX >=1.000 [facility] has important p athology staff changes e ffective 08/04/2022. New pathology staff will provide uninter rupted, excellent patie nt care and clinical consultation. S ee URL: [email or web address]. UNLESS OTHERWISE INDICATED, [facility] [address] [place] [address] 4 LABORATORY DIRE CTOR: SHIELA RICE M.D. [place] NUMBER [id number] [place] [id number] RPR REFLEX TO T. PALLIDUM - [id number] 04:35:14 Test Item Value Reference Range Interpretation Comments RPR (test code = 52793) NON-REACTIVE NON-REACTIVE RPR TITER (test code = 3500) NOT INDIC. TITER NOT INDIC. CBC WITH [id number] 16:21:34 Test Item Value Reference Range Interpretation [...] RDW-SD (test code = 39.9 fL 38.5-51.6 13141-3) RDW-CV (test code = 12.4 % 12.1-15.4 788-0) PLT (test code = See_Comment L [Automated 777-3) message] The sy stem which generated this result transmitted reference range : 150 - 328 10*3/ ?L. The reference r elizabeth was not used to interpret this result as normal/abnormal . MPV (test code = 10.6 fL 9.8-13.0 92988-9) IPF % (test code = 3.9 % 1.2-10.7 Platelet count 1315181474) measured by fluorescence method. NRBC/100 WBC (test See_Comment [Automat ed code = 4920160147) message] The system which generated this result transmitted reference range : 0.0 - 10.0 /100 WBCs. The refer ence range was not u sed to interpret th is result as normal/abnormal . NRBC x10^3 (test code <0.01 See_Comment [Auto mated = 4696764438) message] The s ystem which generated this result transmitted reference range : 10*3/?L. The reference range was not used to interpret this result as normal/abnormal . GRAN MAT (NEUT) % 45.9 % (test code = 770-8) IMM GRAN % (test code 0.20 % = 9161598310) LYMPH % (test code = 41.6 % 736-9) MONO % (test code = 5.3 % 5905-5) EOS % (test code = 6.5 % 713-8) BASO % (test code = 0.5 % 706-2) GRAN MAT x10^3(ANC) 2.59 10*3/uL 1.99-6.95 (test code = 6128518084) IMM GRAN x10^3 (test <0.03 0.00-0.06 code = 4277504763) LYMPH x10^3 (test code 2.35 10*3/uL 1.09-3.23 = 731-0) MONO x10^3 (test code 0.30 10*3/uL 0.36-1.02 L = 742-7) EOS x10^3 (test code = 0.37 10*3/uL 0.06-0.53 711-2) BASO x10^3 (test code 0.03 10*3/uL 0.01-0.09 = 704-7) Lab Interpretation Abnormal (test code = 55971-2) [facility]. METABOLIC PANEL (28535)2021-04-27 16:20:53 Test Item Value Reference Range Interpretation Comments NA (test code = 138 mmol/L 135-145 4244810675) K (test code = 4.3 mmol/L 3.5-5.0 7917767678) CL (test code = 104 mmol/L 98-108 8042152487) CO2 TOTAL (test code 28 mmol/L 23-31 = 0779404647) AGAP (test code = 2-16 3083709085) BUN (test code = 10 mg/dL 7-23 2836919438) GLUCOSE (test code = 95 mg/dL 70-110 4753441796) CREATININE (test code 0.93 mg/dL 0.60-1.25 = 8289462919) TOTAL BILI (test code 1.1 mg/dL 0.1-1.1 = 6766561735) CALCIUM (test code = 9.2 mg/dL 8.6-10.6 4714211907) T PROTEIN (test code 7.3 g/dL 6.3-8.2 = 6024632397) ALBUMIN (test code = 4.2 g/dL 3.5-5.0 3380295528) ALK PHOS (test code = 55 U/L 34-122 4665883488) ALTv (test code = 21 U/L 5-50 1742-6) AST(SGOT) (test code 28 U/L 13-40 = 4953189503) eGFR (test code = mL/min/1.73m2 5088750390) ABA (test code = ABA) Association of [...] or urine or abnormalities in imaging tests). [facility] 16:20[facility]33 Test Item Value Reference Range Interpretation Comments LIPASE (test code = 4685463156) 58 U/L 0-220 Lab Interpretation (test code = Normal 79247-4) [facility]"
[2023-02-06] MEDS ORDERED: NA CHLORIDE 0.9% 1,000 ML ONE (22:28)
[2023-02-06 22:49] LABS: Absolute Lymphocytes (CBC) 1.7 K/uL (0.7-4.9); Hematocrit 44.5 % (39.6-49.0); MCV 88.3 fL (80-100); Platelets 143 thou/uL (152-406); RBC Red Blood Cell Count 5.04 M/uL (4.33-5.43)
[2023-02-06 22:53] LABS: Protime INR 1.08
[2023-02-06 23:17] LABS: ALT/SGPT 22 U/L (16-61); AST/SGOT 17 U/L (15-37); Alkaline Phosphatase 67 U/L (45-117); BUN Blood Urea Nitrogen 16 mg/dL (7-18); Bicarbonate 28 mEq/L (21-32); Bilirubin Direct 0.1 mg/dL (0-0.2); Bilirubin Indirect, Calculated 0.5 mg/dL (0.2-0.8); Bilirubin Total 0.6 mg/dL (0.2-1.0); Glomerular Filtration Rate 70 ml/min (=/>90); Glucose Level 78 mg/dL (74-106); Protein, Total 7.7 g/dL (6.4-8.2); Sodium Level 140 mEq/L (136-145)
[2023-02-06 23:24] LABS: Specific Gravity 1.024 (1.005-1.030); Urine Bacteria None Seen /HPF (<20); Urine Bilirubin NEGATIVE (Negative); Urine Blood Negative (Negative); Urine Clarity Clear (Clear); Urine Color Light-Yellow (Yellow); Urine Glucose NEGATIVE (Negative); Urine Mucus 1+ /HPF (None Seen); Urine Protein 1+ (Negative); Urine RBC <5 /HPF (None Seen); Urine Urobilinogen Normal (Normal); Urine pH 5.5 (5.0-7.0)
[2023-02-06 23:31] LABS: Barbiturates NEGATIVE (NEGATIVE); Benzodiazepines NEGATIVE (NEGATIVE); Cocaine NEGATIVE (NEGATIVE); METHAMPHETAM NEGATIVE (NEGATIVE); Methadone NEGATIVE (NEGATIVE); Opiates NEGATIVE (NEGATIVE); Phencyclidine NEGATIVE (NEGATIVE); THC Cannibis NEGATIVE (NEGATIVE)
--- NOTE | 2023-02-07 00:44 | EDPHYS ---
Physician Documentation [facility] Name: Juan Campos Age: 47 yrs Sex: Male : 1975 Arrival Date: 02/06/2023 Time: 21:24 Bed 13 Private MD: ERIK Physician Bhavesh Brown HPI: 02/07 00:39 This 47 yrs old Male presents to ER via Ambulatory with complaints of suicide diane thoughts, resolved. 00:39 The patient presents to the emergency department with suicide ideation, but the patient diane has no formulated plan. Onset: The symptoms/episode began/occurred just prior to arrival. Past psychiatric history: Prior diagnosis: depression. Associated signs and symptoms: The patient has no apparent associated signs or symptoms. Severity of symptoms: At their worst the symptoms were mild moderate in the emergency department the symptoms have improved markedly. The patient has experienced similar episodes in the past, a few times. Historical: - Allergies: 02/06 21:53 No Known Allergies; kl - PMHx: 22:57 None; eb1 - PSHx: 22:58 hernia repair; eb1 - Immunization history:: Adult Immunizations up to date. - Social history:: Smoking status: Patient denies any tobacco usage or history of. ROS: 02/07 00:40 Constitutional: Negative for fever, chills, and weight loss, Eyes: Negative for injury, diane pain, redness, and discharge, ENT: Negative for injury, pain, and discharge, Neck: Negative for injury, pain, and swelling, Cardiovascular: Negative for chest pain, palpitations, and edema, Respiratory: Negative for shortness of breath, cough, wheezing, and pleuritic chest pain, Abdomen/GI: Negative for abdominal pain, nausea, vomiting, diarrhea, and constipation, Back: Negative for injury and pain, : Negative for injury, bleeding, discharge, and swelling, MS/Extremity: Negative for injury and deformity, Skin: Negative for injury, rash, and discoloration, Neuro: Negative for headache, weakness, numbness, tingling, and seizure, Allergy/Immunology: Negative for hives, rash, and allergies, Endocrine: Negative for neck swelling, polydipsia, polyuria, polyphagia, and marked weight changes, Hematologic/Lymphatic: Negative for swollen nodes, abnormal bleeding, and unusual bruising. Psych: Positive for anxiety, depression, suicidal ideation. Exam: 00:40 Constitutional: This is a well developed, well nourished patient who is awake, alert, diane and in no acute distress. Head/Face: Normocephalic, atraumatic. Eyes: Pupils equal round and reactive to light, extra-ocular motions intact. Lids and lashes normal. Conjunctiva and sclera are non-icteric and not injected. Cornea within normal limits. Periorbital areas with no swelling, redness, or edema. ENT: Nares patent. No nasal discharge, no septal abnormalities noted. Tympanic membranes are normal and external auditory canals are clear. Oropharynx with no redness, swelling, or masses, exudates, or evidence of obstruction, uvula midline. Mucous membranes moist. Neck: Trachea midline, no thyromegaly or masses palpated, and no cervical lymphadenopathy. Supple, full range of motion without nuchal rigidity, or vertebral point tenderness. No Meningismus. Chest/axilla: Normal chest wall appearance and motion. Nontender with no deformity. No lesions are appreciated. Cardiovascular: Regular rate and rhythm with a normal S1 and S2. No gallops, murmurs, or rubs. Normal PMI, no JVD. No pulse deficits. Respiratory: Lungs have equal breath sounds bilaterally, clear to auscultation and percussion. No rales, rhonchi or wheezes noted. No increased work of breathing, no retractions or nasal flaring. Abdomen/GI: Soft, non-tender, with normal bowel sounds. No distension or tympany. No guarding or rebound. No evidence of tenderness throughout. Back: No spinal tenderness. No costovertebral tenderness. Full range of motion. Skin: Warm, dry with normal turgor. Normal color with no rashes, no lesions, and no evidence of cellulitis. MS/ Extremity: Pulses equal, no cyanosis. Neurovascular intact. Full, normal range of motion. Neuro: Awake and alert, GCS 15, oriented to person, place, time, and situation. Cranial nerves II-XII grossly intact. Motor strength 5/5 in all extremities. Sensory grossly intact. Cerebellar exam normal. Normal gait. Psych: Awake, alert, with orientation to person, place and time. Behavior, mood, and affect are within normal limits. 00:40 Psych: Exam negative for acute changes, hallucinations, delusions, inappropriate behavior, psychosis, paranoia, Behavior/mood is pleasant, cooperative, Affect is calm, Oriented to person, place, time, Patient has no thoughts/intents to harm self or others. Judgement / Insight is normal. Delusions/hallucinations are not present. 00:44 ECG was reviewed by the Attending Physician. [facility] Vital Signs: 02/06 21:47 BP 120 / 81; Pulse 87; Resp 20; Temp 98.2; Pulse Ox 99% ; Weight 86.18 kg; Height 6 ft. kl 1 in. ; Pain 0/10; 22:52 BP 122 / 67; Pulse 88; Resp 20; Temp 98.1; Pulse Ox 98% ; Pain 0/10; eb1 21:47 Body Mass Index 25.07 (86.18 kg, 185.42 cm) kl 21:47 Pain Scale: Adult kl 22:52 Pain Scale: Adult eb1 MDM: 21:38 Patient medically screened. [facility] 02/07 00:41 Differential diagnosis: drug withdrawal. acute psychotic break, depression, psychosis diane secondary to non-compliance. Data reviewed: vital signs, nurses notes, lab test result(s), EKG. Consideration of Admission/Observation Escalation of care including admission/observation considered. I considered the following discharge prescriptions or medication management in the emergency department Medications were administered in the Emergency Department. See MAR. Test considered but Not performed: X-ray: no cxr. Care significantly affected by the following chronic conditions: anxiety, depression. Counseling: I had a detailed discussion with the patient and/or guardian regarding the historical points, exam findings, and any diagnostic results supporting the discharge/admit diagnosis, lab results, radiology results, the need for outpatient follow up, for definitive care, a family practitioner, a psychiatrist. 02/06 21:40 Order name: Acetaminophen; Complete Time: 00:37 [facility] 02/06 21:40 Order name: Basic Metabolic Panel; Complete Time: 00:37 [facility] 02/06 21:40 Order name: CBC with Diff; Complete Time: 00:37 [facility] 02/06 21:40 Order name: ETOH Level; Complete Time: 00:37 [facility] 02/06 21:40 Order name: Hepatic Function; Complete Time: 00:37 [facility] 02/06 21:40 Order name: PT-INR; Complete Time: 00:37 [facility] 02/06 21:40 Order name: Ptt, Activated; Complete Time: 00:37 [facility] 02/06 21:40 Order name: Salicylate; Complete Time: 00:37 [facility] 02/06 21:40 Order name: Urinalysis w/ reflexes; Complete Time: 00:37 [facility] 02/06 21:40 Order name: Urine Drug Screen; Complete Time: 00:37 [facility] 02/06 21:40 Order name: EKG; Complete Time: 21:40 [facility] 02/06 21:40 Order name: EKG - Nurse/Tech; Complete Time: 22:32 [facility] 02/06 21:40 Order name: IV Saline Lock; Complete Time: 22:32 [facility] 02/06 21:40 Order name: Labs collected and sent; Complete Time: 22:32 [facility] 02/06 21:40 Order name: Suicide Screening ([place]); Complete Time: :23 [facility] EC:44 Rate is 73 beats/min. Rhythm is regular. QRS Steele is Normal. NC interval is normal. QRS diane interval is normal. QT interval is normal. No Q waves. T waves are Normal. No ST changes noted. Clinical impression: Normal ECG and No evidence of ischemia. Interpreted by me. Reviewed by me. Administered Medications: 02/06 22:43 Drug: NS 0.9% IV 1000 ml Route: IV; Rate: 1 bolus; Site: left antecubital; eb1 Disposition Summary: 02/07/23 00:44 Discharge Ordered Location: Home diane Problem: new diane Symptoms: have improved diane Condition: Stable diane Diagnosis - Adjustment disorder with mixed disturbance of emotions and conduct diane - Elevated white blood cell count, unspecified diane Followup: diane - With: Private Physician - When: 2 - 3 days - Reason: Recheck today's complaints, Continuance of care, Re-evaluation by your physician Followup: diane - With: Noah Rossi MD - When: 2 - 3 days - Reason: Recheck today's complaints, Continuance of care, Re-evaluation by your physician Discharge Instructions: - Discharge Summary Sheet diane - Adjustment Disorder, Adult diane - Leukocytosis diane - Managing Depression, Adult diane Forms: - Medication Reconciliation Form diane - Thank You Letter diane - Antibiotic Education diane - Prescription Opioid Use diane - Patient Portal Instructions diane - Leadership Thank You Letter diane Signatures: Dispatcher [employer] Valery Rebolledo RN RN kl Anderson, Corey, MD MD cha Basinger, Emily, RN RN eb1 Corrections: (The following items were deleted from the chart) 21:52 PMHx: Bipolar disorder; kl kl 21:52 PMHx: adhd; kl kl 21:52 PMHx: Anxiety; kl kl 21:52 PMHx: Herpes simplex; kl kl 21:52 PSHx: Vasectomy; kl kl 21:52 PSHx: hernia; kl kl
--- NOTE | 2023-02-07 00:44 | ER ---
Nurse's Notes [facility] Name: Juan Campos Age: 47 yrs Sex: Male : 1975 Arrival Date: 02/06/2023 Time: 21:24 Bed 13 Private MD: Diagnosis: Adjustment disorder with mixed disturbance of emotions and conduct;Elevated white blood cell count, unspecified Presentation: 02/06 21:47 Chief complaint: Patient states: Patient states " I got into an argument with my son noreen and I said I wanted to hurt myself. I was stupid and do not want to harm myself. I have a daughter I have to live for..". Coronavirus screen: Vaccine status: Patient reports receiving the 2nd dose of the covid vaccine. Client denies travel out of the [place] in the last 14 days. Ebola Screen: Patient negative for fever greater than or equal to 101.5 degrees Fahrenheit, and additional compatible Ebola Virus Disease symptoms. Initial Sepsis Screen: Does the patient meet any 2 criteria? No. Patient's initial sepsis screen is negative. Risk Assessment: Do you want to hurt yourself or someone else? Patient reports no desire to harm self or others. Onset of symptoms was February 06, 2023. 21:47 Method Of Arrival: Ambulatory 21:47 Acuity: [place] 3 kl 22:55 Initial Sepsis Screen: Does the patient have a suspected source of infection? No. eb1 Patient's initial sepsis screen is negative. Triage Assessment: 21:53 General: Appears comfortable, well developed, Behavior is calm, cooperative. Pain: Denies pain. Historical: - Allergies: 21:53 No Known Allergies; kl - PMHx: 22:57 None; eb1 - PSHx: 22:58 hernia repair; eb1 - Immunization history:: Adult Immunizations up to date. - Social history:: Smoking status: Patient denies any tobacco usage or history of. Screenin:53 Abuse screen: Denies threats or abuse. Denies injuries from another. Nutritional eb1 screening: No deficits noted. Tuberculosis screening: No symptoms or risk factors identified. 22:54 [facility] ED Fall Risk Assessment (Adult) Score/Fall Risk Level 0 - 2 = Low Risk eb1 Oriented to surroundings, Maintained a safe environment, Educated pt \\T\\ family on fall prevention, incl call for assistance when getting out of bed, Assessed \\T\\ reinforced patient's understanding of fall precautions, Hourly rounding (assess needs \\T\\ fall precautionary measures) done. Assessment: 22:52 General: Appears in no apparent distress. comfortable, well groomed, well nourished, eb1 Behavior is calm, cooperative, appropriate for age. Pain: Denies pain. Neuro: No deficits noted. Cardiovascular: Reports None. Respiratory: No deficits noted. GI: No deficits noted. No signs and/or symptoms were reported involving the gastrointestinal system. : No deficits noted. No signs and/or symptoms were reported regarding the genitourinary system. EENT: No deficits noted. No signs and/or symptoms were reported regarding the EENT system. Derm: No deficits noted. No signs and/or symptoms reported regarding the dermatologic system. Musculoskeletal: No deficits noted. No signs and/or symptoms reported regarding the musculoskeletal system. 23:48 Reassessment: Patient appears in no apparent distress at this time. No changes from eb1 previously documented assessment. Patient denies pain at this time. Patient states feeling better. 02/07 00:30 Reassessment: Patient appears in no apparent distress at this time. No changes from eb1 previously documented assessment. Patient denies pain at this time. Patient states feeling better. Vital Signs: 02/06 21:47 BP 120 / 81; Pulse 87; Resp 20; Temp 98.2; Pulse Ox 99% ; Weight 86.18 kg; Height 6 ft. kl 1 in. ; Pain 0/10; 22:52 BP 122 / 67; Pulse 88; Resp 20; Temp 98.1; Pulse Ox 98% ; Pain 0/10; eb1 21:47 Body Mass Index 25.07 (86.18 kg, 185.42 cm) kl 21:47 Pain Scale: Adult kl 22:52 Pain Scale: Adult eb1 ED Course: 21:38 Patient arrived in ED. kl 21:38 Bhavesh Brown MD is Attending Physician. [facility] 21:52 Triage completed. kl 22:00 Safety Checks: Personal items have been removed. The door is open or patient has been eb1 placed in a hallway bed/chair. There are no family/friend visitors at this time Sitter present at this time. 22:15 No apparent distress. Awaiting ED provider evaluation. Safety Checks: Personal items eb1 have been removed. The door is open or patient has been placed in a hallway bed/chair. There are no family/friend visitors at this time Sitter present at this time. 22:30 No apparent distress. Safety Checks: Personal items have been removed. The door is open eb1 or patient has been placed in a hallway bed/chair. There are no family/friend visitors at this time Sitter present at this time. 22:33 Inserted saline lock: 20 gauge in left antecubital area, using aseptic technique. Blood sm8 collected. 22:33 Missed attempt(s): 20 gauge in right forearm. Bleeding controlled, band aid applied, sm8 catheter tip intact. 22:33 EKG done, by ED staff. sm8 22:45 No apparent distress. Safety Checks: Personal items have been removed. The door is open eb1 or patient has been placed in a hallway bed/chair. There are no family/friend visitors at this time Sitter present at this time. 22:51 Urine Drug Screen Sent. eb1 22:51 Urinalysis w/ reflexes Sent. eb1 22:53 Arm band placed on right wrist. eb1 22:54 Patient has correct armband on for positive identification. Placed in gown. Bed in low eb1 position. Side rails up X2. 22:55 Provided Education on: suicide screening and need for 1:1 sitter. Patient verbalizes eb1 understanding. 23:00 No apparent distress. Safety Checks: Personal items have been removed. The door is open eb1 or patient has been placed in a hallway bed/chair. There are no family/friend visitors at this time Sitter present at this time. 23:15 No apparent distress. Safety Checks: Personal items have been removed. The door is open eb1 or patient has been placed in a hallway bed/chair. There are no family/friend visitors at this time Sitter present at this time. 23:23 Urinalysis w/ reflexes Sent. eb1 23:23 Urine Drug Screen Sent. eb1 23:30 No apparent distress. Safety Checks: Personal items have been removed. The door is open eb1 or patient has been placed in a hallway bed/chair. There are no family/friend visitors at this time Sitter present at this time. 02/07 00:32 No provider procedures requiring assistance completed. IV discontinued, intact, eb1 bleeding controlled, No redness/swelling at site. Pressure dressing applied. 00:43 Noah Rossi MD is Referral Physician. diane Administered Medications: 02/06 22:43 Drug: NS 0.9% IV 1000 ml Route: IV; Rate: 1 bolus; Site: left antecubital; eb1 Medication: 22:54 VIS not applicable for this client. eb1 Outcome: 02/07 00:32 Condition: good eb1 Discharge instructions given to patient, Demonstrated understanding of instructions. 00:44 Discharge ordered by . diane 01:17 Patient left the ED. kl Signatures: Valery Lozano RN RN kl Anderson, Corey, MD MD cha Basinger, Emily, RN RN [facility] Amy Cabrera 8 Corrections: (The following items were deleted from the chart) 02/06 21:53 21:52 PMHx: Bipolar disorder; kl kl 21:53 21:52 PMHx: adhd; kl kl 21:53 21:52 PMHx: Anxiety; kl kl 21:53 21:52 PMHx: Herpes simplex; kl kl 21:53 21:52 PSHx: Vasectomy; kl kl 21:53 21:52 PSHx: hernia; kl kl
[2023-02-07 02:17] VITALS: BP 122/67; TEMP 98.1; O2SAT 98
--- NOTE | 2023-02-08 16:50 | EKG ---
Test Date: 2023-02-06 Test Time: 22:14:31 Technical Mgr: KARLY MEASUREMENT RESULTS: Intervals: Rate: 73 WV: 132 QRSD: 98 QT: 364 QTc: 401 [place]: P: 64 WV: 132 QRS: 64 T: 67 INTERPRETIVE STATEMENTS: Normal sinus rhythm Normal ECG Compared to ECG 10/01/2022 04:40:12 No significant changes Electronically Signed On 02-08-23 16:45:09 CDT by Mickey Doan
== END 2023-02-07 01:17 | disposition home or self-care (01) ==
LOC: ER 21:24
DX: F43.25 Adjustment disorder with mixed disturbance of emotions and conduct (principal); D72.829 Elevated white blood cell count, unspecified
CPT/HCPCS: 93005; 85025; 81001; 80048; 36415; 85610; 80076; 85730; 80307; 99284; 80143; 80179; 82077; J7030

== ENCOUNTER 2023-05-02 05:44 | Emergency (ER) | payer OTHER ==
--- OUTSIDE RECORDS SUMMARY | 2023-05-02 05:50 | XMS REPORT | Continuity of Care Document ---
:1975 Author Organization [facility] t Address [address] [place] [address] Care Team Providers Name Role Phone Jluis Ferrell Primary Care Physician PIOTR CHANG Attending Clinician Unavailable ASHLEY GAYLE Attending Clinician Unavailable Ashley Gayle MD Attending Clinician Piotr Chang MD Attending Clinician Gabrielle Forman RN Attending Clinician Unavailable Doctor Unassigned, [place] Attending Clinician Unavailable Jluis Ferrell Attending Clinician JLUIS WHELAN Attending Clinician Unavailable Lab, Ang - Db Attending Clinician Unavailable BRAN RED Attending Clinician Unavailable Bran Red DO Attending Clinician Bebeto Woody Attending Clinician PIOTR CHANG Admitting Clinician Unavailable ASHLEY GAYLE Admitting Clinician Unavailable BRAN RED Admitting Clinician Unavailable Payers Payer Name Policy Type Policy Number Effective Date Expiration Date S lawrence [facility] [id number] 2022 00:00:00 [place] [id number] 2021 00:00:00 [facility] [id number] 2022 PLUS 00:00:00 [facility] [id number] 2014 MEDICAID 00:00:00 Problems Condition Condition Condition Status Onset Resolution Last Treating Co mments Source Name Details Category Date Date Treatment Clinician Date Esophageal Esophageal Disease Active Overview : [facility] dysphagia dysphagia 3-08 Formattin i ty of 00:00: g of this [place] 00 note Medical might be Branch different from the original. Added automatic ally from request for surgery [id number] Abdominal Abdominal Disease Active Overview: [facility] pain, pain, 3-08 Formattin ity of unspecifie unspecifie 00:00: g of this [place] d d 00 note Medical abdominal abdominal might be Br anch location location different from the original. Added automatic ally from request for surgery [id number] Wellness Wellness Disease Active Unive rs examinatio examinatio 2-13 it y of n n 00:00: Medical Branch Need for Need for Disease Active Unive rs hepatitis hepatitis 2-13 ity of C C 00:00: [place] screening screening 00 Medi faina test test Branch Need for Need for Disease Active Unive rs vaccinatio vaccinatio 2-13 it y of n n 00:00: Medical Branch Bipolar Bipolar Disease Active Overview: Univ ers disorder disorder Formattin ity of g of this [place] note Medical might be Branch different from the original. 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 Paresthesi Paresthes Problem Active 2018-12-15 Memoria [...] Allergen adverse 00:00: [place] ic Ext reaction Medical s Branch CAT HAIR DRUG Active ITCHING Univers STD 6-16 ity of ALLERGEN 00:00: [place] IC EXT 00 Medical Branch No Known No Known Active Memori a Medicati Medicati l on on [place] s s Social History Social Habit Start Date Stop Date Quantity Comments Source Sexual orientation [facility] [place] [facility] Exposure to 2022-09-05 2022-09-15 Not sure [facility] SARS-CoV-2 (event) 00:00:00 11:05:00 [facility] Alcohol intake 2022-08-09 2022-08-09 Current University 00:00:00 00:00:00 non-drinker of [facility] alcohol Branch (finding) History of Social 2022-07-19 2022-07-19 Univers ity of function 00:00:00 00:00:00 [facility] Tobacco use and 2022-07-19 2022-07-19 Smokeless Universit y of exposure 00:00:00 00:00:00 tobacco non-user [facility] Tobacco Comment 2022-07-19 2022-07-19 Second hand Universi ty of 00:00:00 00:00:00 smoke [facility] Sex Ass[birth year] Universit y of 00:00:00 00:00:00 [facility] Smoking Status Start Date Stop Date Source Never smoked tobacco [facility] Social History [facility] Medications Ordered Filled Start [...] 2 % viscous 00 :00 dose, On [facility] 1:1:1 Mon Branch ([facility] 11/15/22 at [facility]) 0500, oral Routine suspension 15 mL dicyclomine Yes [id number] 20mg Take 1 Univers 20 mg 6-12 tablet by ity of tablet 00:00: mouth [place] 00 every 6 Medical (six) Branch hours as needed for Abdominal pain. ondansetron Yes [id number] 4mg Take 1 Univers (ZOFRAN) 4 6-12 tablet by ity of mg tablet 00:00: mouth [place] 00 every 8 Medical (eight) Branch hours as needed for Nausea and Vomiting (N/V). diphenoxyla Yes [id number] 1{tbl} Take 1 Univers te-atropine 6-12 tablet [...] Branch CALCIUM Yes Take by Univers CARBONATE 4-12 mouth. ity of (CALCIUM 11:03: [place] 500 ORAL) 23 Medical Branch CALCIUM 0 Yes Take by Univers CARBONATE 4-12 mouth. ity of (CALCIUM 11:03: [place] 500 ORAL) 23 Medical Branch CALCIUM Yes Take by Univers CARBONATE 4-12 [...] 14:04: [place] 500 ORAL) 49 Medical Branch iopamidol 2020-06- No [id number] 120mL 120 mL, Univers (ISOVUE 06-27 Intravenou ity o f 370-500 mL) 17:15: 16:04 s, ONCE, 1 [place] injection 00 :00 dose, On Medica l 120 mL [facility] 04/27/21 at 1115, Routine ondansetron 2020-06- No 4mg 4 mg, Slow Univers (ZOFRAN 06-27 IV Push, ity of (PF)) 16:45: 15:45 ONCE, 1 [place] injection 4 00 :00 dose, On Medi faina mg [facility] 04/27/21 at 1045, Routine sucralfate 2020-06 Yes [id number] 1g Take 1 U nivers 1 gram 1-22 tablet by ity of tablet 00:00: mouth [place] 00 before Medical meals and Branch at bedtime. dicyclomine 2020-06 Yes [id number] 10mg Take 1 Univers (BENTYL) 10 1-22 capsule by it y of mg capsule 00:00: mouth [place] 00 every 8 Medical (eight) Branch hours as needed for Abdominal pain. ondansetron 2020-06 Yes [id number] 4mg Take 1 Univers 4 mg 1-22 tablet by ity of disintegrat 00:00: mouth [place] ing tablet 00 every 8 Medica l (eight) Branch hours as needed for Nausea and Vomiting (N/V). sucralfate 2020-06 Yes [id number] 1g Take 1 U nivers 1 gram 1-22 tablet by ity of tablet 00:00: mouth [place] 00 before Medical meals and Branch at bedtime. dicyclomine 2020-06 Yes [id number] 10mg Take 1 Univers (BENTYL) 10 1-22 capsule by it y of mg capsule 00:00: mouth [place] 00 every 8 Medical (eight) Branch hours as needed for Abdominal pain. ondansetron 2020-06 Yes [id number] 4mg Take 1 Univers 4 mg 1-22 tablet by ity of disintegrat 00:00: mouth [place] ing tablet 00 every 8 Medica l (eight) Branch hours as needed for Nausea and Vomiting (N/V). sucralfate 2020-06 Yes [id number] 1g Take 1 U nivers 1 gram 1-22 tablet by ity of tablet 00:00: mouth [place] 00 before Medical meals and Branch at bedtime. dicyclomine 2020-06 Yes [id number] 10mg Take 1 Univers (BENTYL) 10 1-22 capsule by it y of mg capsule 00:00: mouth [place] 00 every 8 Medical (eight) Branch hours as needed for Abdominal pain. ondansetron 2020-06 Yes [id number] 4mg Take 1 Univers 4 mg 1-22 tablet by ity of disintegrat 00:00: mouth [place] ing tablet 00 every 8 Medica l (eight) Branch hours as needed for Nausea and Vomiting (N/V). sucralfate 2020-06 Yes [id number] 1g Take 1 U nivers 1 gram 1-22 tablet by ity of tablet 00:00: mouth [place] 00 before Medical meals and Branch at bedtime. dicyclomine 2020-06 Yes [id number] 10mg Take 1 Univers (BENTYL) 10 1-22 capsule by it y of mg capsule 00:00: mouth [place] 00 every 8 Medical (eight) Branch hours as needed for Abdominal pain. ondansetron 2020-06 Yes [id number] 4mg Take 1 Univers 4 mg 1-22 tablet by ity of disintegrat 00:00: mouth [place] ing tablet 00 every 8 Medica l (eight) Branch hours as needed for Nausea and Vomiting (N/V). sucralfate 2020-06 Yes [id number] 1g Take 1 U nivers 1 gram 1-22 tablet by ity of tablet 00:00: mouth [place] 00 before Medical meals and Branch at bedtime. dicyclomine 2020-06 Yes [id number] 10mg Take 1 Univers (BENTYL) 10 1-22 capsule by it y of mg capsule 00:00: mouth [place] 00 every 8 Medical (eight) Branch hours as needed for Abdominal pain. ondansetron 2020-06 Yes [id number] 4mg Take 1 Univers 4 mg 1-22 tablet by ity of disintegrat 00:00: mouth [place] ing tablet 00 every 8 Medica l (eight) Branch hours as needed for Nausea and Vomiting (N/V). sucralfate 2020-06 Yes [id number] 1g Take 1 U nivers 1 gram 1-22 tablet by ity of tablet 00:00: mouth [place] 00 before Medical meals and Branch at bedtime. dicyclomine 2020-06 Yes [id number] 10mg Take 1 Univers (BENTYL) 10 1-22 capsule by it y of mg capsule 00:00: mouth [place] 00 every 8 Medical (eight) Branch hours as needed for Abdominal pain. ondansetron 2020-06 Yes [id number] 4mg Take 1 Univers 4 mg 1-22 tablet by ity of disintegrat 00:00: mouth [place] ing tablet 00 every 8 Medica l (eight) Branch hours as needed for Nausea and Vomiting (N/V). sucralfate 2020-06 Yes [id number] 1g Take 1 U nivers 1 gram 1-22 tablet by ity of tablet 00:00: mouth [place] 00 before Medical meals and Branch at bedtime. dicyclomine 2020-06 Yes [id number] 10mg Take 1 Univers (BENTYL) 10 1-22 capsule by it y of mg capsule 00:00: mouth [place] 00 every 8 Medical (eight) Branch hours as needed for Abdominal pain. ondansetron 2020-06 Yes [id number] 4mg Take 1 Univers 4 mg 1-22 tablet by ity of disintegrat 00:00: mouth [place] ing tablet 00 every 8 Medica l (eight) Branch hours as needed for Nausea and Vomiting (N/V). sucralfate 2020-06 Yes [id number] 1g Take 1 U nivers 1 gram 1-22 tablet by ity of tablet 00:00: mouth [place] 00 before Medical meals and Branch at bedtime. dicyclomine 2020-06 Yes [id number] 10mg Take 1 Univers (BENTYL) 10 1-22 capsule by it y of mg capsule 00:00: mouth [place] 00 every 8 Medical (eight) Branch hours as needed for Abdominal pain. ondansetron 2020-06 Yes [id number] 4mg Take 1 Univers 4 mg 1-22 tablet by ity of disintegrat 00:00: mouth [place] ing tablet 00 every 8 Medica l (eight) Branch hours as needed for Nausea and Vomiting (N/V). sucralfate 2020-06 Yes [id number] 1g Take 1 U nivers 1 gram 1-22 tablet by ity of tablet 00:00: mouth [place] 00 before Medical meals and Branch at bedtime. dicyclomine 2020-06 Yes [id number] 10mg Take 1 Univers (BENTYL) 10 1-22 capsule by it y of mg capsule 00:00: mouth [place] 00 every 8 Medical (eight) Branch hours as needed for Abdominal pain. ondansetron 2020-06 Yes [id number] 4mg Take 1 Univers 4 mg 1-22 tablet by ity of disintegrat 00:00: mouth [place] ing tablet 00 every 8 Medica l (eight) Branch hours as needed for Nausea and Vomiting (N/V). sucralfate 2020-06 Yes [id number] 1g Take 1 U nivers 1 gram 1-22 tablet by ity of tablet 00:00: mouth [place] 00 before Medical meals and Branch at bedtime. sucralfate 2020-06 Yes [id number] 1g Take 1 U nivers 1 gram 1-22 tablet by ity of tablet 00:00: mouth [place] 00 before Medical meals and Branch at bedtime. dicyclomine 2020-06 Yes [id number] 10mg Take 1 Univers (BENTYL) 10 1-22 capsule by it y of mg capsule 00:00: mouth [place] 00 every 8 Medical (eight) Branch hours as needed for Abdominal pain. ondansetron 2020-06 Yes [id number] 4mg Take 1 Univers 4 mg 1-22 tablet by ity of disintegrat 00:00: mouth [place] ing tablet 00 every 8 Medica l (eight) Branch hours as needed for Nausea and Vomiting (N/V). dicyclomine 2020-06 Yes [id number] 10mg Take 1 Univers (BENTYL) 10 1-22 capsule by it y of mg capsule 00:00: mouth [place] 00 every 8 Medical (eight) Branch hours as needed for Abdominal pain. sucralfate 2020-06 Yes [id number] 1g Take 1 U nivers 1 gram 1-22 tablet by ity of tablet 00:00: mouth [place] 00 before Medical meals and Branch at bedtime. dicyclomine 2020-06 Yes [id number] 10mg Take 1 Univers (BENTYL) 10 1-22 capsule by it y of mg capsule 00:00: mouth [place] 00 every 8 Medical (eight) Branch hours as needed for Abdominal pain. ondansetron 2020-06 Yes [id number] 4mg Take 1 Univers 4 mg 1-22 tablet by ity of disintegrat 00:00: mouth [place] ing tablet 00 every 8 Medica l (eight) Branch hours as needed for Nausea and Vomiting (N/V). ondansetron 2020-06 Yes [id number] 4mg Take 1 Univers 4 mg 1-22 tablet by ity of disintegrat 00:00: mouth [place] ing tablet 00 every 8 Medica l (eight) Branch hours as needed for Nausea and Vomiting (N/V). sucralfate 2020-06 Yes [id number] 1g Take 1 U nivers 1 gram 1-22 tablet by ity of tablet 00:00: mouth [place] 00 before Medical meals and Branch at bedtime. dicyclomine 2020-06 Yes [id number] 10mg Take 1 Univers (BENTYL) 10 1-22 capsule by it y of mg capsule 00:00: mouth [place] 00 every 8 Medical (eight) Branch hours as needed for Abdominal pain. ondansetron 2020-06 Yes [id number] 4mg Take 1 Univers 4 mg 1-22 tablet by ity of disintegrat 00:00: mouth [place] ing tablet 00 every 8 Medica l (eight) Branch hours as needed for Nausea and Vomiting (N/V). sucralfate 2020-06 Yes [id number] 1g Take 1 U nivers 1 gram 1-22 tablet by ity of tablet 00:00: mouth [place] 00 before Medical meals and Branch at bedtime. dicyclomine 2020-06 Yes [id number] 10mg Take 1 Univers (BENTYL) 10 1-22 capsule by it y of mg capsule 00:00: mouth [place] 00 every 8 Medical (eight) Branch hours as needed for Abdominal pain. ondansetron 2020-06 Yes [id number] 4mg Take 1 Univers 4 mg 1-22 tablet by ity of disintegrat 00:00: mouth [place] ing tablet 00 every 8 Medica l (eight) Branch hours as needed for Nausea and Vomiting (N/V). sucralfate 2020-06 Yes [id number] 1g Take 1 U nivers 1 gram 1-22 tablet by ity of tablet 00:00: mouth [place] 00 before Medical meals and Branch at bedtime. dicyclomine 2020-06 Yes [id number] 10mg Take 1 Univers (BENTYL) 10 1-22 capsule by it y of mg capsule 00:00: mouth [place] 00 every 8 Medical (eight) Branch hours as needed for Abdominal pain. ondansetron 2020-06 Yes [id number] 4mg Take 1 Univers 4 mg 1-22 tablet by ity of disintegrat 00:00: mouth [place] ing tablet 00 every 8 Medica l (eight) Branch hours as needed for Nausea and Vomiting (N/V). sucralfate 2020-06 Yes [id number] 1g Take 1 U nivers 1 gram 1-22 tablet by ity of tablet 00:00: mouth [place] 00 before Medical meals and Branch at bedtime. dicyclomine 2020-06 Yes [id number] 10mg Take 1 Univers (BENTYL) 10 1-22 capsule by it y of mg capsule 00:00: mouth [place] 00 every 8 Medical (eight) Branch hours as needed for Abdominal pain. ondansetron 2020-06 Yes [id number] 4mg Take 1 Univers 4 mg 1-22 tablet by ity of disintegrat 00:00: mouth [place] ing tablet 00 every 8 Medica l (eight) Branch hours as needed for Nausea and Vomiting (N/V). sucralfate 2020-06 Yes [id number] 1g Take 1 U nivers 1 gram 1-22 tablet by ity of tablet 00:00: mouth [place] 00 before Medical meals and Branch at bedtime. dicyclomine 2020-06 Yes [id number] 10mg Take 1 Univers (BENTYL) 10 1-22 capsule by it y of mg capsule 00:00: mouth [place] 00 every 8 Medical (eight) Branch hours as needed for Abdominal pain. ondansetron 2020-06 Yes [id number] 4mg Take 1 Univers 4 mg 1-22 tablet by ity of disintegrat 00:00: mouth [place] ing tablet 00 every 8 Medica l (eight) Branch hours as needed for Nausea and Vomiting (N/V). sucralfate 2020-06 Yes [id number] 1g Take 1 U nivers 1 gram 1-22 tablet by ity of tablet 00:00: mouth [place] 00 before Medical meals and Branch at bedtime. dicyclomine 2020-06 Yes [id number] 10mg Take 1 Univers (BENTYL) 10 1-22 capsule by it y of mg capsule 00:00: mouth [place] 00 every 8 Medical (eight) Branch hours as needed for Abdominal pain. ondansetron 2020-06 Yes [id number] 4mg Take 1 Univers 4 mg 1-22 tablet by ity of disintegrat 00:00: mouth [place] ing tablet 00 every 8 Medica l (eight) Branch hours as needed for Nausea and Vomiting (N/V). sucralfate 2020-06 Yes [id number] 1g Take 1 U nivers 1 gram 1-22 tablet by ity of tablet 00:00: mouth [place] 00 before Medical meals and Branch at bedtime. dicyclomine 2020-06 Yes [id number] 10mg Take 1 Univers (BENTYL) 10 1-22 capsule by it y of mg capsule 00:00: mouth [place] 00 every 8 Medical (eight) Branch hours as needed for Abdominal pain. ondansetron 2020-06 Yes [id number] 4mg Take 1 Univers 4 mg 1-22 tablet by ity of disintegrat 00:00: mouth [place] ing tablet 00 every 8 Medica l (eight) Branch hours as needed for Nausea and Vomiting (N/V). sucralfate 2020-06 Yes [id number] 1g Take 1 U nivers 1 gram 1-22 tablet by ity of tablet 00:00: mouth [place] 00 before Medical meals and Branch at bedtime. dicyclomine 2020-06 Yes [id number] 10mg Take 1 Univers (BENTYL) 10 1-22 capsule by it y of mg capsule 00:00: mouth [place] 00 every 8 Medical (eight) Branch hours as needed for Abdominal pain. ondansetron 2020-06 Yes [id number] 4mg Take 1 Univers 4 mg 1-22 tablet by ity of disintegrat 00:00: mouth [place] ing tablet 00 every 8 Medica l (eight) Branch hours as needed for Nausea and Vomiting (N/V). sucralfate 2020-06 Yes [id number] 1g Take 1 U nivers 1 gram 1-22 tablet by ity of tablet 00:00: mouth [place] 00 before Medical meals and Branch at bedtime. dicyclomine 2020-06 Yes [id number] 10mg Take 1 Univers (BENTYL) 10 1-22 capsule by it y of mg capsule 00:00: mouth [place] 00 every 8 Medical (eight) Branch hours as needed for Abdominal pain. ondansetron 2020-06 Yes [id number] 4mg Take 1 Univers 4 mg 1-22 tablet by ity of disintegrat 00:00: mouth [place] ing tablet 00 every 8 Medica l (eight) Branch hours as needed for Nausea and Vomiting (N/V). sucralfate 2020-06 Yes [id number] 1g Take 1 U nivers 1 gram 1-22 tablet by ity of tablet 00:00: mouth [place] 00 before Medical meals and Branch at bedtime. dicyclomine 2020-06 Yes [id number] 10mg Take 1 Univers (BENTYL) 10 1-22 capsule by it y of mg capsule 00:00: mouth [place] 00 every 8 Medical (eight) Branch hours as needed for Abdominal pain. ondansetron 2020-06 Yes [id number] 4mg Take 1 Univers 4 mg 1-22 tablet by ity of disintegrat 00:00: mouth [place] ing tablet 00 every 8 Medica l (eight) Branch hours as needed for Nausea and Vomiting (N/V). omeprazole 2020-06- No [id number] 20mg Take 1 Univers 20 mg 1-22 12-23 capsule by ity of capsule 00:00: 05:59 mouth [place] 00 :00 daily for Medical 30 days. Branch nystatin 2019-0 Yes [id number] Take 5 mL Univers 100,000 1-25 by mouth 4 ity of unit/mL 00:00: (four) [place] suspension 00 times Medical daily. Branch ondansetron 2018-0 Yes [id number] 4mg Take 1 Univers 4 mg tablet 1-25 tablet by ity of 00:00: mouth [place] 00 every 8 Medical (eight) Branch hours as needed for Nausea and Vomiting (N/V). nystatin 2018-0 Yes [id number] Take 5 mL Univers 100,000 1-25 by mouth 4 ity of unit/mL 00:00: (four) [place] suspension 00 times Medical daily. Branch ondansetron 2018-0 Yes [id number] 4mg Take 1 Univers 4 mg tablet 1-25 tablet by ity of 00:00: mouth [place] 00 every 8 Medical (eight) Branch hours as needed for Nausea and Vomiting (N/V). nystatin 2019-0 Yes [id number] Take 5 mL Univers 100,000 1-25 by mouth 4 ity of unit/mL 00:00: (four) [place] suspension 00 times Medical daily. Branch ondansetron 2018-0 Yes [id number] 4mg Take 1 Univers 4 mg tablet 1-25 tablet by ity of 00:00: mouth [place] 00 every 8 Medical (eight) Branch hours as needed for Nausea and Vomiting (N/V). nystatin 2019-0 Yes [id number] Take 5 mL Univers 100,000 1-25 by mouth 4 ity of unit/mL 00:00: (four) [place] suspension 00 times Medical daily. Branch ondansetron 2019-0 Yes [id number] 4mg Take 1 Univers 4 mg tablet 1-25 tablet by ity of 00:00: mouth [place] 00 every 8 Medical (eight) Branch hours as needed for Nausea and Vomiting (N/V). nystatin 2019-0 Yes [id number] Take 5 mL Univers 100,000 1-25 by mouth 4 ity of unit/mL 00:00: (four) [place] suspension 00 times Medical daily. Branch ondansetron 2019-0 Yes [id number] 4mg Take 1 Univers 4 mg tablet 1-25 tablet by ity of 00:00: mouth [place] 00 every 8 Medical (eight) Branch hours as needed for Nausea and Vomiting (N/V). nystatin 2019-0 Yes [id number] Take 5 mL Univers 100,000 1-25 by mouth 4 ity of unit/mL 00:00: (four) [place] suspension 00 times Medical daily. Branch ondansetron 2019-0 Yes [id number] 4mg Take 1 Univers 4 mg tablet 1-25 tablet by ity of 00:00: mouth [place] 00 every 8 Medical (eight) Branch hours as needed for Nausea and Vomiting (N/V). nystatin 2019-0 Yes [id number] Take 5 mL [facility] 100,000 1-25 by mouth 4 ity of unit/mL 00:00: (four) [place] suspension 00 times Medical daily. Branch ondansetron 2019-0 Yes [id number] 4mg Take 1 Univers 4 mg tablet 1-25 tablet by ity of 00:00: mouth [place] 00 every 8 Medical (eight) Branch hours as needed for Nausea and Vomiting (N/V). nystatin 2019-0 Yes [id number] Take 5 mL [facility] 100,000 1-25 by mouth 4 ity of unit/mL 00:00: (four) [place] suspension 00 times Medical daily. Branch ondansetron 2019-0 Yes [id number] 4mg Take 1 Univers 4 mg tablet 1-25 tablet by ity of 00:00: mouth [place] 00 every 8 Medical (eight) Branch hours as needed for Nausea and Vomiting (N/V). nystatin 2019-0 Yes [id number] Take 5 mL Univers 100,000 1-25 by mouth 4 ity of unit/mL 00:00: (four) [place] suspension 00 times Medical daily. Branch nystatin 2019-0 Yes [id number] Take 5 mL Univers 100,000 1-25 by mouth 4 ity of unit/mL 00:00: (four) [place] suspension 00 times Medical daily. Branch ondansetron 2019-0 Yes [id number] 4mg Take 1 Univers 4 mg tablet 1-25 tablet by ity of 00:00: mouth [place] 00 every 8 Medical (eight) Branch hours as needed for Nausea and Vomiting (N/V). ondansetron 2019-0 Yes [id number] 4mg Take 1 Univers 4 mg tablet 1-25 tablet by ity of 00:00: mouth [place] 00 every 8 Medical (eight) Branch hours as needed for Nausea and Vomiting (N/V). nystatin 2019-0 Yes [id number] Take 5 mL [facility] 100,000 1-25 by mouth 4 ity of unit/mL 00:00: (four) [place] suspension 00 times Medical daily. Branch ondansetron 2019-0 Yes [id number] 4mg Take 1 Univers 4 mg tablet 1-25 tablet by ity of 00:00: mouth [place] 00 every 8 Medical (eight) Branch hours as needed for Nausea and Vomiting (N/V). nystatin 2019-0 Yes [id number] Take 5 mL [facility] 100,000 1-25 by mouth 4 ity of unit/mL 00:00: (four) [place] suspension 00 times Medical daily. Branch ondansetron 2019-0 Yes [id number] 4mg Take 1 Univers 4 mg tablet 1-25 tablet by ity of 00:00: mouth [place] 00 every 8 Medical (eight) Branch hours as needed for Nausea and Vomiting (N/V). nystatin 2019-0 Yes [id number] Take 5 mL [facility] 100,000 1-25 by mouth 4 ity of unit/mL 00:00: (four) [place] suspension 00 times Medical daily. Branch ondansetron 2019-0 Yes [id number] 4mg Take 1 Univers 4 mg tablet 1-25 tablet by ity of 00:00: mouth [place] 00 every 8 Medical (eight) Branch hours as needed for Nausea and Vomiting (N/V). nystatin 2019-0 Yes [id number] Take 5 mL [facility] 100,000 1-25 by mouth 4 ity of unit/mL 00:00: (four) [place] suspension 00 times Medical daily. Branch ondansetron 2019-0 Yes [id number] 4mg Take 1 Univers 4 mg tablet 1-25 tablet by ity of 00:00: mouth [place] 00 every 8 Medical (eight) Branch hours as needed for Nausea and Vomiting (N/V). nystatin 2019-0 Yes [id number] Take 5 mL [facility] 100,000 1-25 by mouth 4 ity of unit/mL 00:00: (four) [place] suspension 00 times Medical daily. Branch ondansetron 2019-0 Yes [id number] 4mg Take 1 Univers 4 mg tablet 1-25 tablet by ity of 00:00: mouth [place] 00 every 8 Medical (eight) Branch hours as needed for Nausea and Vomiting (N/V). nystatin 2019-0 Yes [id number] Take 5 mL [facility] 100,000 1-25 by mouth 4 ity of unit/mL 00:00: (four) [place] suspension 00 times Medical daily. Branch ondansetron 2019-0 Yes [id number] 4mg Take 1 Univers 4 mg tablet 1-25 tablet by ity of 00:00: mouth [place] 00 every 8 Medical (eight) Branch hours as needed for Nausea and Vomiting (N/V). nystatin 2019-0 Yes [id number] Take 5 mL [facility] 100,000 1-25 by mouth 4 ity of unit/mL 00:00: (four) [place] suspension 00 times Medical daily. Branch ondansetron 2019-0 Yes [id number] 4mg Take 1 [facility] 4 mg tablet 1-25 tablet by ity of 00:00: mouth [place] 00 every 8 Medical (eight) Branch hours as needed for Nausea and Vomiting (N/V). nystatin 2019-0 Yes [id number] Take 5 mL [facility] 100,000 1-25 by mouth 4 ity of unit/mL 00:00: (four) [place] suspension 00 times Medical daily. Branch ondansetron 2019-0 Yes [id number] 4mg Take 1 [facility] 4 mg tablet 1-25 tablet by ity of 00:00: mouth [place] 00 every 8 Medical (eight) Branch hours as needed for Nausea and Vomiting (N/V). nystatin 2019-0 Yes [id number] Take 5 mL [facility] 100,000 1-25 by mouth 4 ity of unit/mL 00:00: (four) [place] suspension 00 times Medical daily. Branch ondansetron 2019-0 Yes [id number] 4mg Take 1 [facility] 4 mg tablet 1-25 tablet by ity of 00:00: mouth [place] 00 every 8 Medical (eight) Branch hours as needed for Nausea and Vomiting (N/V). nystatin 2019-0 Yes [id number] Take 5 mL [facility] 100,000 1-25 by mouth 4 ity of unit/mL 00:00: (four) [place] suspension 00 times Medical daily. Branch ondansetron 2018-0 Yes [id number] 4mg Take 1 Univers 4 mg tablet 1-25 tablet by ity of 00:00: mouth [place] 00 every 8 Medical (eight) Branch hours as needed for Nausea and Vomiting (N/V). nystatin 2018-0 Yes [id number] Take 5 mL Univers 100,000 1-25 by mouth 4 ity of unit/mL 00:00: (four) [place] suspension 00 times Medical daily. Branch ondansetron 2018- Yes [id number] 4mg Take 1 Univers 4 mg tablet 1-25 tablet by ity of 00:00: mouth [place] 00 every 8 Medical (eight) Branch hours as needed for Nausea and Vomiting (N/V). nystatin 2018-0 Yes [id number] Take 5 mL Univers 100,000 1-25 by mouth 4 ity of unit/mL 00:00: (four) [place] suspension 00 times Medical daily. Branch ondansetron Yes [id number] 4mg Take 1 Univers 4 mg tablet [...] in 0-11 PO, Q12H, l 15:33: 0 [place] 00 Refill(s) hydrOXYzine 2017-06 No 25 mg, [...] 0-11 tab, PO, l 15:33: Q12H, 0 [place] 00 Refill(s) Ciprofloxac 2017-06 No 500 mg, Mem oria in 0-11 PO, Q12H, l 15:33: 0 [place] 00 Refill(s) ondansetron 2017-06 No 4 mg = 1 Me moria 4 mg oral 0-11 tab, PO, l tablet 15:33: Q12H, 0 [place] 00 Refill(s) hydrOXYzine 2017-06 No 25 mg, [...] 0-11 tab, PO, l 15:33: Q12H, 0 [place] 00 Refill(s) Ciprofloxac 2017-06 No 500 mg, Mem oria in 0-11 PO, Q12H, l 15:33: 0 [place] 00 Refill(s) hydrOXYzine 2017-06 No 25 mg, PO, Memoria hydrochlori 0-11 Q6H, 0 l de 15:33: Refill(s) Metronidazo 2017-06 No 500 mg = 1 Memoria le 0-11 tab, PO, l 15:33: Q6H, 0 [place] 00 Refill(s) Omeprazole 2017-06 No 40 mg, PO, M emoria 0-11 Daily, 0 l 15:33: Refill(s) Famotidine 2017-06 No 20 mg = 1 Me moria 0-11 tab, PO, l 15:33: Q12H, 0 [place] 00 Refill(s) Dicyclomine 2017-06 No 20 mg, PO, Memoria 0-11 Q6H, 0 l 15:33: Refill(s) [place] 00 ondansetron 2017-06 No 4 mg = 1 Me moria 4 mg oral 0-11 tab, PO, l tablet 15:33: Q12H, 0 [place] 00 Refill(s) Famotidine 2017-06 No 20 mg = 1 Me moria 0-11 tab, PO, l 15:33: Q12H, 0 [place] 00 Refill(s) Ciprofloxac 2017-06 No 500 mg, [...] tab, PO, l tablet 15:33: Q12H, 0 [place] 00 Refill(s) Famotidine 2017-06 No 20 mg = 1 Me moria 0-11 tab, PO, l 15:33: Q12H, 0 [place] 00 Refill(s) Ciprofloxac 2017-06 No 500 mg, Mem oria in 0-11 PO, Q12H, l 15:33: 0 [place] 00 Refill(s) Ciprofloxac 2017-06 No 500 mg, Mem oria in 0-11 PO, Q12H, l 15:33: 0 [place] 00 Refill(s) hydrOXYzine 2017-06 No 25 mg, PO, Memoria hydrochlori 0-11 Q6H, 0 l de 15:33: Refill(s) Metronidazo 2017-06 No 500 mg = 1 Memoria le 0-11 tab, PO, l 15:33: Q6H, 0 [place] 00 Refill(s) Omeprazole 2017-06 No 40 mg, PO, M emoria 0-11 Daily, 0 l 15:33: Refill(s) Dicyclomine 2017-06 No 20 mg, PO, Memoria 0-11 Q6H, 0 l 15:33: Refill(s) ondansetron 2017-06 No 4 mg = 1 Me moria 4 mg oral 0-11 tab, PO, l tablet 15:33: Q12H, 0 [place] 00 Refill(s) Famotidine 2017-06 No 20 mg = 1 Me moria 0-11 tab, PO, l 15:33: Q12H, 0 [place] 00 Refill(s) Ciprofloxac 2017-06 No 500 mg, Mem oria in 0-11 PO, Q12H, l 15:33: 0 [place] 00 Refill(s) hydrOXYzine 2017-06 No 25 mg, PO, Memoria hydrochlori 0-11 Q6H, 0 l de 15:33: Refill(s) [place] 00 Metronidazo 2017-06 No 500 mg = 1 Memoria le 0-11 tab, PO, l 15:33: Q6H, 0 [place] 00 Refill(s) hydrOXYzine 2017-06 No 25 mg, [...] in 0-11 PO, Q12H, l 15:33: 0 [place] 00 Refill(s) hydrOXYzine 2017-06 No 25 mg, [...] tab, PO, l tablet 15:33: Q12H, 0 [place] 00 Refill(s) Famotidine 2017-06 No 20 mg = 1 Me moria 0-11 tab, PO, l 15:33: Q12H, 0 [place] Refill(s) Ciprofloxac 2017-06 No 500 mg, Mem [...] 0-11 tab, PO, l 15:33: Q6H, 0 [place] 00 Refill(s) Omeprazole 2017-06 No 40 mg, PO, M emoria 0-11 Daily, 0 l 15:33: Refill(s) Dicyclomine 2017-06 No 20 mg, PO, Memoria 0-11 Q6H, 0 l 15:33: Refill(s) ondansetron 2017-06 No 4 mg = 1 Me moria 4 mg oral 0-11 tab, PO, l tablet 15:33: Q12H, 0 [place] 00 Refill(s) Famotidine 2017-06 No 20 mg = 1 Me moria 0-11 tab, PO, l 15:33: Q12H, 0 [place] 00 Refill(s) Ciprofloxac 2017-06 No 500 mg, Mem oria in 0-11 PO, Q12H, l 15:33: 0 Cal Refill(s) hydrOXYzine 2017-06 No 25 mg, PO, [...] in 0-11 PO, Q12H, l 15:33: 0 [place] 00 Refill(s) hydrOXYzine 2017-06 No 25 mg, PO, Memoria hydrochlori 0-11 Q6H, 0 l de 15:33: Refill(s) Metronidazo 2017-06 No 500 mg = 1 Memoria le 0-11 tab, PO, l 15:33: Q6H, 0 [place] 00 Refill(s) Omeprazole 2017-06 No 40 mg, [...] in 0-11 PO, Q12H, l 15:33: 0 [place] 00 Refill(s) hydrOXYzine 2017-06 No 25 mg, [...] tab, PO, l tablet 15:33: Q12H, 0 [place] 00 Refill(s) Famotidine 2017-06 No 20 mg = 1 Me moria 0-11 tab, PO, l 15:33: Q12H, 0 [place] 00 Refill(s) Ciprofloxac 2017-06 No 500 mg, Mem oria in 0-11 PO, Q12H, l 15:33: 0 [place] 00 Refill(s) hydrOXYzine 2017-06 No 25 mg, PO, Memoria hydrochlori 0-11 Q6H, 0 l de 15:33: Refill(s) Metronidazo 2017-06 No 500 mg = 1 Memoria le 0-11 tab, PO, l 15:33: Q6H, 0 [place] Refill(s) Omeprazole 2017-06 No 40 mg, PO, [...] 0-11 tab, PO, l 15:33: Q6H, 0 [place] 00 Refill(s) Omeprazole 2017-06 No 40 mg, [...] in 0-11 PO, Q12H, l 15:33: 0 [place] 00 Refill(s) hydrOXYzine 2017-06 No 25 mg, PO, Memoria hydrochlori 0-11 Q6H, 0 l de 15:33: Refill(s) Metronidazo 2017-06 No 500 mg = 1 Memoria le 0-11 tab, PO, l 15:33: Q6H, 0 [place] 00 Refill(s) Omeprazole 2017-06 No 40 mg, PO, M emoria 0-11 Daily, 0 l 15:33: Refill(s) Dicyclomine 2017-06 No 20 mg, PO, Memoria 0-11 Q6H, 0 l 15:33: Refill(s) ondansetron 2017-06 No 4 mg = 1 Me moria 4 mg oral 0-11 tab, PO, l tablet 15:33: Q12H, 0 [place] 00 Refill(s) Famotidine 2017-06 No 20 mg = 1 Me moria 0-11 tab, PO, l 15:33: Q12H, 0 [place] 00 Refill(s) Ciprofloxac 2017-06 No 500 mg, Mem oria in 0-11 PO, Q12H, l 15:33: 0 [place] 00 Refill(s) hydrOXYzine 2017-06 No 25 mg, PO, Memoria hydrochlori 0-11 Q6H, 0 l de 15:33: Refill(s) [place] 00 Metronidazo 2017-06 No 500 mg = 1 Memoria le 0-11 tab, PO, l 15:33: Q6H, 0 [place] 00 Refill(s) Omeprazole 2017-06 No 40 mg, PO, M emoria 0-11 Daily, 0 l 15:33: Refill(s) Dicyclomine 2017-06 No 20 mg, PO, Memoria 0-11 Q6H, 0 l 15:33: Refill(s) ondansetron 2017-06 No 4 mg = 1 Me moria 4 mg oral 0-11 tab, PO, l tablet 15:33: Q12H, 0 [place] 00 Refill(s) Metronidazo 2017-06 No 500 mg = 1 Memoria le 0-11 tab, PO, l 15:33: Q6H, 0 [place] 00 Refill(s) Famotidine 2017-06 No 20 mg = 1 Me moria 0-11 tab, PO, l 15:33: Q12H, 0 [place] 00 Refill(s) Ciprofloxac 2017-06 No 500 mg, Mem oria in 0-11 PO, Q12H, l 15:33: 0 [place] 00 Refill(s) hydrOXYzine 2017-06 No 25 mg, [...] tab, PO, l tablet 15:33: Q12H, 0 [place] 00 Refill(s) Famotidine 2017-06 No 20 mg = 1 Me moria 0-11 tab, PO, l 15:33: Q12H, 0 [place] 00 Refill(s) Ciprofloxac 2017-06 No 500 mg, Mem oria in 0-11 PO, Q12H, l 15:33: 0 [place] 00 Refill(s) hydrOXYzine 2017-06 No 25 mg, PO, Memoria hydrochlori 0-11 Q6H, 0 l de 15:33: Refill(s) Metronidazo 2017-06 No 500 mg = 1 Memoria le 0-11 tab, PO, l 15:33: Q6H, 0 [place] 00 Refill(s) Omeprazole 2017-06 No 40 mg, PO, M emoria 0-11 Daily, 0 l 15:33: Refill(s) Dicyclomine 2017-06 No 20 mg, PO, Memoria 0-11 Q6H, 0 l 15:33: Refill(s) ondansetron 2017-06 No 4 mg = 1 Me moria 4 mg oral 0-11 tab, PO, l tablet 15:33: Q12H, 0 [place] 00 Refill(s) Famotidine 2017-06 No 20 mg = 1 Me moria 0-11 tab, PO, l 15:33: Q12H, 0 [place] 00 Refill(s) Ciprofloxac 2017-06 No 500 mg, Mem oria in 0-11 PO, Q12H, l 15:33: 0 [place] 00 Refill(s) hydrOXYzine 2017-06 No 25 mg, PO, Memoria hydrochlori 0-11 Q6H, 0 l de 15:33: Refill(s) omeprazole 2017-06- No Univer s 40 [...] hydrocortis 2018-0 Yes 25mg Insert 1 Un neliad one 8-24 Suppositor ity of (ANUSOL-HC) 00:00: [...] Medical suppository (two) Branch times daily. hydrocortis 0 Yes 25mg Insert 1 Un nelida one 8-24 Suppositor ity of (ANUSOL-HC) [place] 25 mg 00 rectum 2 Medical suppository (two) Branch times daily. hydrocortis 0 Yes 25mg Insert 1 Un nelida one [...] of (CALCIUM 14:20: [place] 500 ORAL) 36 [facility] Branch CALCIUM 2016-0 Yes Take by Univers CARBONATE 3-02 mouth. ity of (CALCIUM 14:20: [place] 500 ORAL) 36 [facility] Immunizations Ordered Filled Date Status Comments Source Immunization Name Immunization Name [facility] 2022-07-19 Completed University 00:00:00 [facility] Influenza Virus 2022-07-19 Completed Universit y of Vaccine Quad IM, 00:00:00 [facility] dical Preserv and ABX Branch Free 6 MO-64 YRS TDAP 2022-07-19 Completed University of 00:00:00 [facility] Influenza Virus 2022-07-19 Completed Universit y of Vaccine Quad IM, 00:00:00 [facility] dical Preserv and ABX Branch Free 6 MO-64 YRS TDAP 2022-07-19 Completed University of 00:00:00 [facility] Influenza Virus 2022-07-19 Completed Universit y of Vaccine Quad IM, 00:00:00 [facility] dical Preserv and ABX Branch Free 6 MO-64 YRS TDAP 2022-07-19 Completed University of 00:00:00 [facility] Influenza Virus 2022-07-19 Completed Universit y of Vaccine Quad IM, 00:00:00 [place] Me dical Preserv and ABX Branch Free 6 MO-64 YRS TDAP 2022-07-19 Completed University of 00:00:00 [facility] Influenza Virus 2022-07-19 Completed Universit y of Vaccine Quad IM, 00:00:00 [place] Me dical Preserv and ABX Branch Free 6 MO-64 YRS TDAP 2022-07-19 Completed University of 00:00:00 [facility] Influenza Virus 2022-07-19 Completed Universit y of Vaccine Quad IM, 00:00:00 [place] Me dical Preserv and ABX Branch Free 6 MO-64 YRS TDAP 2022-07-19 Completed University of 00:00:00 [facility] Influenza Virus 2022-07-19 Completed Universit y of Vaccine Quad IM, 00:00:00 [place] Me dical Preserv and ABX Branch Free 6 MO-64 YRS TDAP 2022-07-19 Completed University of 00:00:00 [facility] Influenza Virus 2022-07-19 Completed Universit y of Vaccine Quad IM, 00:00:00 [place] Me dical Preserv and ABX Branch Free 6 MO-64 YRS TDAP 2022-07-19 Completed University of 00:00:00 [facility] Influenza Virus 2022-07-19 Completed Universit y of Vaccine Quad IM, 00:00:00 [place] Me dical Preserv and ABX Branch Free 6 MO-64 YRS TDAP 2022-07-19 Completed University of 00:00:00 [facility] Influenza Virus 2022-07-19 Completed Universit y of Vaccine Quad IM, 00:00:00 [place] Me dical Preserv and ABX Branch Free 6 MO-64 YRS TDAP 2022-07-19 Completed University of 00:00:00 [facility] Influenza Virus 2022-07-19 Completed Universit y of Vaccine Quad IM, 00:00:00 [place] Me dical Preserv and ABX Branch Free 6 MO-64 YRS TDAP 2022-07-19 Completed University of 00:00:00 [facility] Influenza Virus 2022-07-19 Completed Universit y of Vaccine Quad IM, 00:00:00 [place] Me dical Preserv and ABX Branch Free 6 MO-64 YRS TDAP 2022-07-19 Completed University of 00:00:00 [facility] Influenza Virus 2022-07-19 Completed Universit y of Vaccine Quad IM, 00:00:00 [facility] dical Preserv and ABX Branch Free 6 MO-64 YRS TDAP 2022-07-19 Completed University of 00:00:00 [facility] Influenza Virus 2022-07-19 Completed Universit y of Vaccine Quad IM, 00:00:00 [facility] dical Preserv and ABX Branch Free 6 MO-64 YRS TDAP 2022-07-19 Completed University of 00:00:00 [facility] Influenza Virus 2022-07-19 Completed Universit y of Vaccine Quad IM, 00:00:00 [facility] dical Preserv and ABX Branch Free 6 MO-64 YRS TDAP 2022-07-19 Completed University of 00:00:00 [facility] Influenza Virus 2022-07-19 Completed Universit y of Vaccine Quad IM, 00:00:00 [facility] dical Preserv and ABX Branch Free 6 MO-64 YRS TDAP 2022-07-19 Completed University of 00:00:00 [facility] Influenza Virus 2022-07-19 Completed Universit y of Vaccine Quad IM, 00:00:00 [facility] dical Preserv and ABX Branch Free 6 MO-64 YRS TDAP 2022-07-19 Completed University of 00:00:00 [facility] Influenza Virus 2022-07-19 Completed Universit y of Vaccine Quad IM, 00:00:00 [facility] dical Preserv and ABX Branch Free 6 MO-64 YRS TDAP Unknown Completed University [facility] Influenza Virus Unknown Completed Universit y of Vaccine Quad IM, [facility] dical Preserv and ABX Branch Free 6 MO-64 YRS (FLUCELVAX) Vital Signs Vital Name Observation Time Observation Value Comments Source Systolic blood 2022-11-15 11:00:00 128 mm[Hg] Univer sity of pressure [facility] Diastolic blood 2022-11-15 11:00:00 85 mm[Hg] Unive rsity of pressure [facility] Heart rate 2022-11-15 11:00:00 72 /min Universi ty of [facility] Respiratory rate 2022-11-15 11:00:00 17 /min Univ ersity of [place] [facility] Oxygen saturation in 2022-11-15 11:00:00 96 /min University of Arterial blood by [facility] Pulse oximetry Branch Body temperature 2022-11-15 09:37:00 36.89 Carol Univ ersity of [place] [facility] Body height 2022-11-15 09:37:00 177.8 cm Universi ty of [place] [facility] Body weight 2022-11-15 09:37:00 86.183 kg Universi ty of [place] [facility] BMI 2022-11-15 09:37:00 27.26 kg/m2 Universi ty of [place] [facility] Systolic blood 2022-08-09 13:52:00 116 mm[Hg] Univer sity of pressure [place] [facility] Diastolic blood 2022-08-09 13:52:00 76 mm[Hg] Unive rsity of pressure [place] [facility] Heart rate 2022-08-09 13:52:00 62 /min Universi ty of [place] [facility] Body temperature 2022-08-09 13:52:00 36.44 Carol Univ ersity of [place] [facility] Body height 2022-08-09 13:52:00 180.3 cm Universi ty of [place] [facility] Body weight 2022-08-09 13:52:00 89.812 kg Universi ty of [place] [facility] BMI 2022-08-09 13:52:00 27.62 kg/m2 Universi ty of [place] [facility] Oxygen saturation in 2022-08-09 13:52:00 98 /min University of Arterial blood by [facility] Pulse oximetry Branch Systolic blood 2022-07-19 20:02:00 107 mm[Hg] Univer sity of pressure [place] [facility] Diastolic blood 2022-07-19 20:02:00 67 mm[Hg] Unive rsity of pressure [place] [facility] Heart rate 2022-07-19 20:02:00 75 /min Universi ty of [place] [facility] Body temperature 2022-07-19 20:02:00 36.89 Carol Univ ersity of [place] [facility] Body height 2022-07-19 20:02:00 180.3 cm [facility]i ty [facility] [place] [facility] Body weight 2022-07-19 20:02:00 90.81 kg [facility]i ty [facility] [place] [facility] BMI 2022-07-19 20:02:00 27.92 kg/m2 [facility] Oxygen saturation in 2022-07-19 20:02:00 100 /min University of Arterial blood by [facility] Pulse oximetry Branch Systolic blood 2021-04-27 17:30:43 120 mm[Hg] Univer sity of pressure [facility] Diastolic blood 2021-04-27 17:30:43 75 mm[Hg] Unive rsity of pressure [facility] Heart rate 2021-04-27 17:30:43 70 /min [facility] Body temperature 2021-04-27 17:30:43 36.78 Carol [facility] Res[facility] rate 2021-04-27 17:30:43 18 /min [facility] O[facility] saturation in 2021-04-27 17:30:43 100 /min [facility] Arterial blood by [facility] Pulse oximetry Branch Heart Rate 2018-03-16 15:31:00 [facility] Weight 2018-03-16 15:31:00 [facility] Height 2018-03-16 15:31:00 180.34 cm [facility] BMI Calculated 2018-03-16 15:31:00 Quang Malagon Systolic (mm Hg) 2018-03-16 15:31:00 Ming Mccall Diastolic (mm Hg) 2018-03-16 15:31:00 Mem orial Cal Procedures Procedure Date / Time Performed Performing Clinician Sour e EKG-12 LEAD 2022-11-15 11:49:31 Ashley Gayle [facility] XR CHEST 1 VW 2022-11-15 10:25:00 Ashley Gayle [facility] AC ABG + LACTIC ACID 2022-11-15 10:08:00 [facility] 2022-11-15 09:53:00 Ashley Gayle [facility] TROPONIN I 2022-11-15 09:53:00 Ashley Gayle [facility] COMP. METABOLIC PANEL 2022-11-15 09:53:00 Ashley Gayle [facility] ([id number]) [facility] CBC WITH DIFF 2022-11-15 09:53:00 Ashley Gayle [facility] N-TERMINAL PRO-BNP 2022-11-15 09:53:00 Ashley Gayle [facility] NOTICE OF PRIVACY 2022-11-15 09:35:30 Doctor Unassigned, No [facility] Medical Branch CONSENT/REFUSAL FOR 2022-11-15 09:31:42 Doctor Unassigned, [facility] Name Medical Branch TREATMENT DISCLOSURE AND 2022-08-10 06:01:00 Doctor Unassigned, No [facility] CONSENT, MEDICAL AND Name Medical Bra [facility] SURGICAL PROCEDURES TDAP VACCINE, >11 YRS, 2022-07-19 20:16:53 Jluis Whelan [facility] Medical Branch FLU VACC (), 2022-07-19 20:16:53 Jluis Whelan [facility] 6 MO-64 YRS, .5ML, IM, Medical B ranch QUAD (FLUCELVAX) ASSIGNMENT OF BENEFITS 2022-07-19 19:23:15 Doctor Unassigned, No [facility] Medical [place] ABDOMEN PELVIS W 2021-04-27 16:08:21 Red, [facility] CONTRAST Medical Branch LIPASE 2021-04-27 15:45:00 [facility] COMP. METABOLIC PANEL 2021-04-27 15:45:00 [facility] ([id number]) Medical [place] CBC WITH DIFF 2021-04-27 15:45:00 [facility] URINALYSIS 2021-04-27 15:45:00 [facility] NOTICE OF PRIVACY 2021-04-27 14:21:16 Doctor Unassigned, No [facility] Medical Branch CONSENT/REFUSAL FOR 2021-04-27 14:20:59 Doctor Unassigned, No [facility] AND [facility] Medical Branch TREATMENT Encounters Start End Encounter Admission Attending Care Care Encounter Source Date/Time Date/Time Type Type Clinicians Facility Department ID 2022-11-12 Outpatient Marcia CHANG CTANDREA GERMAN [id number] Univers 10:45:07 PIOTR ity [facility] 2022-09-13 Outpatient R [facility] [id number] Univers 15:45:30 PIOTR ayala [facility] 2023-04-19 2023-04-19 Outpatient SFA SFA [id number] Andrew 15:44:09 15:44:09 1114 F [place] 2022-11-23 2022-11-23 Outpatient SFA SFA [id number] Andrew 17:12:36 17:12:36 0620 F [place] 2022-11-17 2022-11-17 Outpatient SFA SFA [id number] Andrew 10:53:37 10:53:37 0614 [facility] 2022-11-15 2022-11-15 Emergency X [facility] ERT [id number] Univers 04:39:00 06:47:00 SARAHHUGO luyc [facility] 2022-11-15 2022-11-15 Emergency [facility] [id number] Univers 04:39:00 06:47:00 Ashley CARMONA [id number] ity [facility] [id number] [place] [id number] [address] 2022-10-27 2022-10-27 Telephone [facility] [id number] Univers 00:00:00 00:00:00 Piotr CARMONA [id number] i ty [facility] [id number] [facility] [place] [facility] [id number] Ut dical [address] 2022-10-25 2022-10-25 Outpatient SFA SFA [id number] Adnrew 13:09:06 13:09:06 521 [facility] 2022-10-12 2022-10-12 Outpatient SFA SFA [id number] Andrew 13:56:07 13:56:07 0509 [facility] 2022-10-06 2022-10-06 Outpatient SFA SFA [id number] Andrew 15:19:09 15:19:09 050 [facility] 2022-09-28 2022-09-28 Outpatient SFA SFA [id number] Andrew 13:29:12 13:29:12 0425 F [place] 2022-09-27 2022-09-27 Telephone [facility] [id number] Univers 00:00:00 00:00:00 Piotr KRISTINE [id number] i ty [facility] [id number] [place] [id number] Ut dical NAL [address] [place] [address] 2022-09-17 2022-09-17 Telephone [facility] [id number] Univers 00:00:00 00:00:00 Piotr CARMONA [id number] i ty [facility] [id number] [id number] Ut dical NAL [address] [place] [address] 2022-09-15 2022-09-15 Telephone Gabrielle Forman [facility] [id number] Univers 00:00:00 00:00:00 Miguel Angel CARMONA [id number] i ty [facility] [id number] [id number] [facility] [address] [place] [address] 2022-09-13 2022-09-13 Telephone [facility] [id number] Univers 00:00:00 00:00:00 Piotr KRISTINE [id number] i ty [facility] [id number] [id number] Ut dical NAL [address] [place] [address] 2022-08-13 2022-08-13 Patient Doctor PIERRE [id number] Univers 00:00:00 00:00:00 Secure Msg Unassigned, PADMINI [id number] ity of [facility] [id number] Edwar as [id number] [facility] 019 [place] 2022-08-10 2022-08-10 Orders Doctor PIERRE [id number] Univers 00:00:00 00:00:00 Only Unassigned, PADMINI [id number] ity of [facility] [id number] Edwar as [id number] [address] 2022-08-09 2022-08-09 Outpatient R BERNARDO [facility] [id number] Univers 08:00:00 10:23:38 PIOTR ayala [facility] 2022-08-09 2022-08-09 Office [facility] [id number] Univers 08:00:00 10:23:38 Visit Piotrbrian CARMONA [id number] i ty [facility] [id number] [id number] Ut dical NAL 188 [facility] 2022-07-20 2022-07-20 [facility]phone [facility] [id number] Univers 00:00:00 00:00:00 Jluis [employer] [id number] it y of [place] [id number] Edwar as KELIN?BLEA [id number] Ut dical NIKIEY 044 [facility] OFFICE [facility] 2022-07-19 2022-07-19 Outpatient R TIP [facility] [id number] Univers 14:00:00 17:27:03 JLUIS ayala [facility] 2022-07-19 2022-07-19 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, [facility] [id number] Univers 15:00:00 15:15:00 Visit Jluis Whelan [facility] [id number] ity of [place] [id number] Edwar as KELIN?BLEA [id number] Ut dical KNEY 353 [facility] OFFICE [facility] 2022-07-19 2022-07-19 Office [facility] [id number] Univers 14:00:00 14:30:00 Visit Jluis [facility] [id number] it y [facility] [id number] Edwar as KELIN?BLEA [id number] Ut dical KNEY 044 [facility] OFFICE [facility] 2022-07-19 2022-07-19 Orders Doctor JAY [id number] Univers 00:00:00 00:00:00 Only Unassigned, PADMINI [id number] ity of [facility] 4.2.7.2.686 [facility] [id number] [facility] 009 Branch 2022-07-12 2022-07-12 Outpatient R TIP, [facility] [id number] Univers 13:00:00 13:00:00 JLUIS ayala [facility] 2021-04-27 2021-04-27 Emergency X RED, [facility] ERT [id number] Univers 08:27:00 11:54:00 BRAN ayala [facility] 2021-04-27 2021-04-27 [facility] [id number] Univers 08:27:00 11:54:00 Bran CARMONA [id number] i ty [facility] [id number] [facility] [id number] [facility] [address] 2018-05-26 2018-05-28 Outside nullFlavo MNA [id number] Memoria 16:20:00 05:59:59 Medical r Neurology 02 l Records [place] 2018-05-26 2018-05-28 Outside nullFlavo MNA [id number] Memoria 16:20:00 05:59:59 Medical r Neurology 02 l Records [facility] 2018-05-26 2018-05-27 Outpatient MHMISCHER MHMISCHER [id number] 10:20:00 23:59:59 02 2018-04-21 2018-04-21 Ambulatory nullFlavo MNA [id number] Memoria 17:15:00 17:15:00 Pre-Reg r Neurology 01 l [facility] 2018-04-21 2018-04-21 Ambulatory nullFlavo MNA [id number] Memoria 17:15:00 17:15:00 Pre-Reg r Neurology 01 l Payal Mccall 2018-04-21 2018-04-21 Outpatient GALO ROSENTHAL [id number] Memoria 11:15:00 11:15:00 Maury Mccall 2018-04-21 2018-04-21 Outpatient MAGDALENA WoodySCHER MHMISCHER [id number] 11:15:00 11:15:00 Bebeto Marquis 2018-03-22 2018-03-24 Outside nullFlavo MNA [id number] Memoria 22:51:00 04:59:59 Medical r Neurology 01 l Records Payal Mccall 2018-03-22 2018-03-24 Outside nullFlavo MNA [id number] Memoria 22:51:00 04:59:59 Medical r Neurology 01 l Records Payal Mccall 2018-03-22 2018-03-24 Phone nullFlavo MNA [id number] Memoria 21:22:00 04:59:59 Message r Neurology 00 l Payal Mccall 2018-03-22 2018-03-24 Phone nullFlavo MNA [id number] Memoria 21:22:00 04:59:59 Message r Neurology 00 l Payal Mccall 2018-03-22 2018-03-23 Outpatient MHMISCHER MHMISCHER [id number] 17:51:00 23:59:59 01 2018-03-22 2018-03-23 Outpatient MHMISCHER MHMISCHER [id number] 16:22:00 23:59:59 00 2018-03-16 2018-03-17 Outpatient nullFlavo MNA [id number] Memoria 16:00:00 04:59:59 r Neurology 00 l Payal Mccall 2018-03-16 2018-03-17 Outpatient nullFlavo MNA [id number] Memoria 16:00:00 04:59:59 r Neurology 00 l Payal Mccall 2018-03-16 2018-03-16 Outpatient Bong MHMISCHER MHMISCHER [id number] 11:00:00 23:59:59 Bebeto Venu Benitez 2018-03-16 2018-03-16 Outpatient [facility] [id number] Memoria 11:00:00 11:00:00 00 miguel angel Mccall Results Test Description Test Time Test Comments Results Result Comments Source CULTURE, URINE 2022-11-20 SPECIMEN NUMBER: 17:10:00 [id number] CULTURE, URINE SPECIMEN NUMBER: [id number] SPECIMEN COMMENT: URINE SOURCE: URINE REPORT STATUS: [...] Testing is performed with Serge code = 44218) JHONY 6800/880 0 systems usingreal-time polymerase chain reaction (PCR) method. A negative result does not exclude low level infection, spec imensampling error, or collection e rror. GONORRHEA, NAAT, URINE (test NEGATIVE NEGATIVE Testing is performed with Serge code = 89853) JHONY 6800/880 0 systems usingreal-time polymerase chain reaction (PCR) method. A negative result does not exclude low level infection, spec imensampling error, or collection e rror. TRICHOMONAS, NAAT, MALE [id number] 19:00:11 Test Item Value Reference Range Interpretation Comments TRICHOMONAS, NAAT NEGATIVE NEGATIVE The perfo rmance of this (test code = assay [place] b [place] [address]) specifically ap proved bythe FDA for the [employer] jhony PCR media swab juan ection device from [facility] [employer] sources. The pe rformance characteristics for these deviceshave bee n validated by [facility] [place]. CPL isauthorized un tatiana the Clinical [facility] Improvement [facility] ndments (CLIA) a s qualified to perform high complexity testing. Testin g is performed with the Serge Jhony 6800/8800 systems usingreal-time Polymerase Chain Reaction (PCR) method The performance of this assay has not b een specifically ap proved bythe FDA for the Heraclio he jhony PCR media swab juan ection device from [facility] [employer] sources. The pe rformance characteristics for these deviceshave bee n validated by [facility] [place]. CPL isauthorized un tatiana the Clinical Labora t[facility] ndments (CLIA) a s qualified to perform high complexity testing. Testin g is performed with the Serge Jhony 6800/8800 systems usingreal-time Polymerase Chain Reaction (PCR) method A negative resu lt does not exclude low lev el infection, spec imensampling error, or colle ction error. SOURCE (test code urine = 25891) HERPES SIMPLEX AB, [id number] 13:59:27 Test Item Value Reference Range Interpretation Comments HERPES SIMPLEX AB, 0.58 INDEX SEE BELOW INTERPRE TATION UNITS IgM (test code = RANGE ----- --------- 00709) ----- ----- NEG ATIVE INDEX <=0.89 EQ UIVOCAL INDEX 0.90-1.09 POSITIVE INDEX >=1.10 HERPES SIMPLEX 1/2 AB, IgG [id number] 05:12:09 Test Item Value Reference Range Interpretation Comments HERPES SIMPLEX 1 6.510 INDEX SEE BELOW H INTERPRETA TION UNITS AB, IgG (test code RANGE --- = 48472) ----- ----- NON -REACTIVE INDEX <1.000 RE ACTIVE INDEX >=1.00 0 HERPES SIMPLEX 2 0.076 INDEX SEE BELOW INTERPRETA TION UNITS AB, IgG (test code RANGE --- = 85968) ----- ----- NON -REACTIVE INDEX <1.000 R EACTIVE INDEX >=1.00 0 HIV 1/2 4TH GEN, RFLX [id number] 05:12:09 Test Item Value Reference Range Interpretation Comments HIV 1/2 4TH GEN, RFLX CONF (test NON-REACTIVE NON-REACTIVE code = 3514) HEPATITIS PANEL, [id number] 05:12:09 Test Item Value Reference Range Interpretation Comments HEPATITIS A IgM (test NON-REACTIVE NON-REACTIVE code = 29368) HEPATITIS B CORE IgM NON-REACTIVE NON-REACTIVE (test code = 4644) HEPATITIS B SURF AG NON-REACTIVE NON-REACTIVE (test code = 2739) HEPATITIS C ANTIBODY NON-REACTIVE NON-REACTIVE (test code = 4675) INTERPRETATION (NOTE) Hepatitis A HEPATITIS A: (test code sero logy shows no = 5312) evidence of acu te hepatitis A. INTERPRETATION (NOTE) Hepatitis B HEPATITIS B: (test code sero logy shows no = 82072) evidence of acu te hepatitis B and no indication of exposure to hepatitis B vir us in the previous alex eight months. INTERPRETATION (NOTE) Hepatitis C HEPATITIS C: (test code sero logy shows no = 67022) evidence of exposure to hepatitisC viru s at this time. I t can take up to 12 months after exposure tothe hepatitis C vir us for antibodies to become detectab le in the blood in certain patient s. [id number] 03:47:09 Test Item Value Reference Range Interpretation Comments RPR RESULT (test NON-REACTIVE NON-REACTIVE code = 3501) RPR TITER (test NOT INDIC. NOT INDIC. UNLESS OTHE RWISE code = 3500) TITER INDICATED, [facility] [address] [place], [place] [id number] 4 LABORATORY DIRE CTOR: SHIELA RICE M.D. CLIA NUMBER [id number] [place] [id number] OCCULT BLD,FECAL,IMMUNOASSAY [id number] 10:54:19 Test Item Value Reference Range Interpretation Comments OCCULT BLD, FECAL NEGATIVE NEGATIVE UNLESS OT HERWISE (test code = 52506) INDICATE D, ALL TESTING PERFORMED AT [facility] [employer]. [address] [place] [address] DIRECTOR: Pia DIEGO MAURIZIO NUMBER [id number] CAP ACCREDITATION N O. [id number] 03:27:48 Test Item Value Reference Range Interpretation Comments LIPASE (test code = 2058) 26 U/L 13-60 [id number] 03:27:48 Test Item Value Reference Range Interpretation Comments AMYLASE (test code = 35 U/L 28-100 UNLESS OTHERWISE 2205) INDICATED, ALL [facility]ING [facility]FOR[facility] [address] [place] [id number] [place], [place] [address] DIRECTOR: Pia DIEGO MAURIZIO NUMBER [id number] CAP ACCREDITATION N O. [id number] CHLAMYDIA, NAAT, [id number] 18:32:30 Test Item Value Reference Range Interpretation Comments CHLAMYDIA, NAAT, NEGATIVE NEGATIVE Testing is performed with URINE (test code Serge JHONY 6800/8800 = 61717) systems usingre al-time polymerase koko n reaction (PCR) method. A negative result does not exclude low level infection , specimensamplin g error, or collection erro r. GONORRHEA, NAAT, [id number] 18:32:30 Test Item Value Reference Range Interpretation Comments GONORRHEA, NAAT, NEGATIVE NEGATIVE Testing is performed with URINE (test code Serge JHONY 6800/8800 = 28218) systems usingre al-time polymerase koko n reaction (PCR) method. A negative result does not exclude low level infection , specimensamplin g error, or collection erro r. HERPES SIMPLEX AB, [id number] 13:53:23 Test Item Value Reference Range Interpretation Comments HERPES SIMPLEX AB, 0.54 INDEX SEE BELOW INTERPRE TATION UNITS IgM (test code = RANGE ----- --------- 71399) ----- ----- NEG ATIVE INDEX <=0.89 EQ UIVOCAL INDEX 0.90-1.09 POSITIVE INDEX >=1.10 HIV 1/2 4TH GEN, RFLX [id number] 07:01:13 Test Item Value Reference Range Interpretation Comments HIV 1/2 4TH GEN, RFLX CONF (test NON-REACTIVE NON-REACTIVE code = 3514) HEPATITIS PANEL, [id number] 07:01:13 Test Item Value Reference Range Interpretation Comments HEPATITIS A IgM (test NON-REACTIVE NON-REACTIVE code = 92025) HEPATITIS B CORE IgM NON-REACTIVE NON-REACTIVE (test code = 4644) HEPATITIS B SURF AG NON-REACTIVE NON-REACTIVE (test code = 2739) HEPATITIS C ANTIBODY NON-REACTIVE NON-REACTIVE (test code = 4675) INTERPRETATION (NOTE) Hepatitis A HEPATITIS A: (test code sero logy shows no = 2552) evidence of acu te hepatitis A. INTERPRETATION (NOTE) Hepatitis B HEPATITIS B: (test code sero logy shows no = 04711) evidence of acu te hepatitis B and no indication of exposure to hepatitis B vir us in the previous alex eight months. INTERPRETATION (NOTE) Hepatitis C HEPATITIS C: (test code sero logy shows no = 48082) evidence of exposure to hepatitisC viru s at this time. I t can take up to 12 months after exposure tothe hepatitis C vir us for antibodies to become detectab le in the blood in certain patient s. HERPES SIMPLEX 1/2 AB, IgG [id number] 07:01:13 Test Item Value Reference Range Interpretation Comments HERPES SIMPLEX 1 7.520 INDEX SEE BELOW H INTERPRETA TION UNITS AB, IgG (test code RANGE --- = 14502) ----- ----- NON -REACTIVE INDEX <1.000 R EACTIVE INDEX >=1.00 0 HERPES SIMPLEX 2 0.076 INDEX SEE BELOW INTERPRETA TION UNITS AB, IgG (test code RANGE --- = 24831) ----- ----- NON -REACTIVE INDEX <1.000 R EACTIVE INDEX >=1.00 0 [facility] has important p athology staff changes e ffective 08/04/2022. New pathology staff will provide uninter rupted, excellent patie nt care and clinical consultation. S ee URL: [email or web address]. UNLESS OTHERWISE INDICATED, ALL TESTING PERFORMED AT [facility] [address] [place] [address] 4 LABORATORY DIRE CTOR: SHIELA RICE M.D. [place] NUMBER [id number] [place] [id number] RPR REFLEX TO T. PALLIDUM - [id number] 04:35:14 Test Item Value Reference Range Interpretation Comments RPR (test code = 24694) NON-REACTIVE NON-REACTIVE RPR TITER (test code = 3500) NOT INDIC. TITER NOT INDIC. CBC WITH [id number] 16:21:34 Test Item Value Reference Range Interpretation Comments WBC (test code = See_Comment [Automated 7108-2) message] The sy stem which generated this result transmitted reference range : 4.20 - 10.70 10*3/?L. The reference range was not used to interpret this result as normal/abnormal . RBC (test code = See_Comment [Automated 524-5) message] The sy stem which generated this [...] RDW-SD (test code = 39.9 fL 38.5-51.6 57082-7) RDW-CV (test code = 12.4 % 12.1-15.4 788-0) PLT (test code = See_Comment L [Automated 777-3) message] The sy stem which generated this result transmitted reference range : 150 - 328 10*3/ ?L. The reference r elizabeth was not used to interpret this result as normal/abnormal . MPV (test code = 10.6 fL 9.8-13.0 34669-1) IPF % (test code = 3.9 % 1.2-10.7 Platelet count 2519131165) measured by fluorescence method. NRBC/100 WBC (test See_Comment [Automat ed code = 0664096184) message] The system which generated this result transmitted reference range : 0.0 - 10.0 /100 WBCs. The refer ence range was not u sed to interpret th is result as normal/abnormal . NRBC x10^3 (test code <0.01 See_Comment [Auto mated = 0482585454) message] The s ystem which generated this result transmitted reference range : 10*3/?L. The reference range was not used to interpret this result as normal/abnormal . GRAN MAT (NEUT) % 45.9 % (test code = 770-8) IMM GRAN % (test code 0.20 % = 0192459584) LYMPH % (test code = 41.6 % 736-9) MONO % (test code = 5.3 % 5905-5) EOS % (test code = 6.5 % 713-8) BASO % (test code = 0.5 % 706-2) GRAN MAT x10^3(ANC) 2.59 10*3/uL 1.99-6.95 (test code = 4338052549) IMM GRAN x10^3 (test <0.03 0.00-0.06 code = 4250912895) LYMPH x10^3 (test code 2.35 10*3/uL 1.09-3.23 = 731-0) MONO x10^3 (test code 0.30 10*3/uL 0.36-1.02 L = 742-7) EOS x10^3 (test code = 0.37 10*3/uL 0.06-0.53 711-2) BASO x10^3 (test code 0.03 10*3/uL 0.01-0.09 = 704-7) Lab Interpretation Abnormal (test code = 98428-0) [facility]. METABOLIC PANEL (30405)2021-04-27 16:20:53 Test Item Value Reference Range Interpretation Comments NA (test code = 138 mmol/L 135-145 7530074906) K (test code = 4.3 mmol/L 3.5-5.0 9924648087) CL (test code = 104 mmol/L 98-108 9539978486) CO2 TOTAL (test code 28 mmol/L 23-31 = 2253918809) AGAP (test code = 2-16 5782302273) BUN (test code = 10 mg/dL 7-23 0422218879) GLUCOSE (test code = 95 mg/dL 70-110 9303514291) CREATININE (test code 0.93 mg/dL 0.60-1.25 = 9829720594) TOTAL BILI (test code 1.1 mg/dL 0.1-1.1 = 7474817690) CALCIUM (test code = 9.2 mg/dL 8.6-10.6 8633438782) T PROTEIN (test code 7.3 g/dL 6.3-8.2 = 7087061540) ALBUMIN (test code = 4.2 g/dL 3.5-5.0 7757263030) ALK PHOS (test code = 55 U/L 34-122 6233196652) ALTv (test code = 21 U/L 5-50 1742-6) AST(SGOT) (test code 28 U/L 13-40 = 1974348764) eGFR (test code = mL/min/1.73m2 7889331079) ABA (test code = ABA) Association of [...] or urine or abnormalities in imaging tests). [facility] Test Item Value Reference Range Interpretation Comments LIPASE (test code = 0833003954) 58 U/L 0-220 Lab Interpretation (test code = Normal 27990-0) [facility]"
[2023-05-02] MEDS ORDERED: ONDANSETRON 4 MG (ODT) TAB ONE (06:21)
[2023-05-02] MEDS ORDERED: LORazepam 2 MG/ML VIAL ONE (06:21)
--- NOTE | 2023-05-02 06:22 | ER ---
Nurse's Notes [facility] Name: Juan Campos Age: 47 yrs Sex: Male : 1975 Arrival Date: 05/02/2023 Time: 05:44 Bed IW1 Private MD: Diagnosis: Anxiety disorder, unspecified;Acute panic attack Presentation: 05/02 05:58 Chief complaint: Chief complaint: Patient states: stated patient woke up freaking pf1 out shaking with vomiting x 3, onset 0520. 05:58 Coronavirus screen: Vaccine status: Patient reports receiving the 2nd dose of the covid pf1 vaccine. 4 doses Client denies travel out of the [place] in the last 14 days. At this time, the client does not indicate any symptoms associated with coronavirus-19. Ebola Screen: Patient negative for fever greater than or equal to 101.5 degrees Fahrenheit, and additional compatible Ebola Virus Disease symptoms. Initial Sepsis Screen: Does the patient meet any 2 criteria? No. Patient's initial sepsis screen is negative. Does the patient have a suspected source of infection? No. Patient's initial sepsis screen is negative. Risk Assessment: Do you want to hurt yourself or someone else? Patient reports no desire to harm self or others. 05:58 Method Of Arrival: Ambulatory pf1 05:58 Acuity: [place] 4 pf1 Triage Assessment: 06:16 General: Appears in no apparent distress. well groomed, well developed, Behavior is pf1 anxious. Pain: Denies pain. EENT: No deficits noted. No signs and/or symptoms were reported regarding the EENT system. Neuro: Level of Consciousness is awake, alert, obeys commands, Oriented to person, place, time, situation. Cardiovascular: No deficits noted. Capillary refill < 3 seconds Patient's skin is warm and dry. Respiratory: No deficits noted. Airway is patent Respiratory effort is even, unlabored, Respiratory pattern is regular, symmetrical. GI: Abdomen is flat, non-distended, Reports vomiting. : No deficits noted. No signs and/or symptoms were reported regarding the genitourinary system. Derm: No deficits noted. No signs and/or symptoms reported regarding the dermatologic system. Historical: - Allergies: 06:15 No Known Allergies; pf1 - PMHx: 06:15 Anxiety; pf1 - PSHx: 06:15 hernia repair; pf1 - Immunization history:: Adult Immunizations up to date, 4 doses Last tetanus immunization: > 10 years ago Flu vaccine is up to date. - Social history:: Smoking status: Patient denies any tobacco usage or history of. Patient/guardian denies using alcohol, street drugs. - Family history:: not pertinent. Screenin:18 [facility] ED Fall Risk Assessment (Adult) History of falling in the last 3 months, pf1 including since admission No falls in past 3 months (0 pts) Confusion or Disorientation No (0 pts) Intoxicated or Sedated No (0 pts) Impaired Gait No (0 pts) Mobility Assist Device Used No (0 pt) Altered Elimination No (0 pt) Score/Fall Risk Level 0 - 2 = Low Risk Oriented to surroundings, Maintained a safe environment, Educated pt \T\ family on fall prevention, incl call for assistance when getting out of bed, Assessed \T\ reinforced patient's understanding of fall precautions, Provided non-skid footwear, Hourly rounding (assess needs \T\ fall precautionary measures) done, Used ambulatory aids as needed (educated on \T\ assisted with), Used gait belt as appropriate. Abuse screen: Denies threats or abuse. Nutritional screening: No deficits noted. Tuberculosis screening: No symptoms or risk factors identified. Assessment: 06:17 General: see triage assessment. pf1 Vital Signs: 05:58 BP 129 / 89; Pulse 78; Resp 16; Temp 98.2; Pulse Ox 100% on R/A; Weight 88.45 kg; pf1 Height 5 ft. 11 in. ; Pain 0/10; 05:58 Body Mass Index 27.20 (88.45 kg, 180.34 cm) pf1 05:58 Pain Scale: Adult pf1 ED Course: 05:48 Patient arrived in ED. gm2 05:56 Zac Galvan MD is Attending Physician. sp4 06:15 Triage completed. pf1 06:18 Patient has correct armband on for positive identification. pf1 06:18 Arm band placed on left wrist. pf1 06:18 No provider procedures requiring assistance completed. pf1 06:30 Provided Education on: follow up. pf1 06:30 Patient did not have IV access during this emergency room visit. pf1 Administered Medications: 06:05 CANCELLED (Duplicate Order): zofran4 mg IM once pf1 06:10 Drug: LORazepam IM 2 mg IM once Route: IM; Site: right gluteus; pf1 06:29 Follow up: Response: No adverse reaction; Marked relief of symptoms pf1 06:10 Drug: Ondansetron PO 4 mg PO once Route: PO; pf1 06:29 Follow up: Response: No adverse reaction; Marked relief of symptoms pf1 Medication: 06:30 VIS not applicable for this client. pf1 Outcome: 06:22 Discharge ordered by MD. leos 06:29 Discharged to home ambulatory, with family, pf1 :29 Condition: improved :29 Discharge instructions given to patient, family, Instructed on discharge instructions, follow up and referral plans. Demonstrated understanding of instructions, follow-up care, :30 Patient left the ED. pf1 Signatures: Sayda Fernandes RN RN pf1 Zac Galvan MD MD sp4 Rosario Phillips gm2 Corrections: (The following items were deleted from the chart) 06:15 06:12 Chief complaint: pf1 pf1
--- NOTE | 2023-05-02 06:22 | EDPHYS ---
Physician Documentation [facility] Name: Juan Campos Age: 47 yrs Sex: Male : 1975 Arrival Date: 05/02/2023 Time: 05:44 Bed IW1 Private MD: ED Physician Zac Galvan HPI: 05/02 05:58 This 47 yrs old Male presents to ER via Unassigned with complaints of Altered sp4 Mental Status, Vomiting, shaking. 05:58 PMH Allergies: No Known Allergies Home Meds: valacyclovir 1 gram Oral tablet daily; sp4 PMHx: ADHD; Anxiety; Bipolar disorder; Herpes simplex PSHx: hernia; Vasectomy;. 06:22 This is a 39-year-old male presents with symptoms of acute anxiety and panic. Patient sp4 reported vomiting nervousness feeling insomnia and feeling upset. This started acutely this morning. Historical: - Allergies: 06:15 No Known Allergies; pf1 - PMHx: 06:15 Anxiety; pf1 - PSHx: 06:15 hernia repair; pf1 - Immunization history:: Adult Immunizations up to date, 4 doses Last tetanus immunization: > 10 years ago Flu vaccine is up to date. - Social history:: Smoking status: Patient denies any tobacco usage or history of. Patient/guardian denies using alcohol, street drugs. - Family history:: not pertinent. ROS: 06:22 Constitutional: Negative for fever, chills, and weight loss, positive anxiety positive sp4 vomiting 06:22 All other systems are negative, Exam: 06:22 Constitutional: This is a well developed, well nourished patient who is awake, alert, sp4 restless male, irritable, emotional upset Head/Face: Normocephalic, atraumatic. Eyes: Pupils equal round and reactive to light, extra-ocular motions intact. Lids and lashes normal. Conjunctiva and sclera are not injected. Cornea within normal limits. Periorbital areas with no swelling, redness, or edema. ENT: Nares patent. No nasal discharge, no septal abnormalities noted. Tympanic membranes are normal and external auditory canals are clear. Oropharynx with no redness, swelling, or masses, exudates, or evidence of obstruction, uvula midline. Mucous membranes moist. Neck: Trachea midline, no thyromegaly or masses palpated, and no cervical lymphadenopathy. Supple, full range of motion without nuchal rigidity, or vertebral point tenderness. Chest/axilla: Normal chest wall appearance and motion. Nontender with no deformity. No lesions are appreciated. Cardiovascular: Regular rate and rhythm with a normal S1 and S2. No gallops, murmurs, or rubs. Normal PMI, no JVD. No pulse deficits. Respiratory: Lungs have equal breath sounds bilaterally, clear to auscultation and percussion. No rales, rhonchi or wheezes noted. No increased work of breathing, no retractions or nasal flaring. Abdomen/GI: Soft, non-tender, with normal bowel sounds. No distension or tympany. No guarding or rebound. No evidence of tenderness throughout. Back: No spinal tenderness. No costovertebral tenderness. Skin: Warm, dry with normal turgor. Normal color with no rashes, no lesions, and no evidence of cellulitis. MS/ Extremity: Pulses equal, no cyanosis. Neurovascular intact. Full, normal range of motion. Neuro: Awake and alert, GCS 15, oriented to person, place, time, and situation. Cranial nerves II-XII grossly intact. Motor strength 5/5 in all extremities. Sensory grossly intact. Psych: Awake, alert, with orientation to person, place and time. Patient is restless and irritable Vital Signs: 05:58 BP 129 / 89; Pulse 78; Resp 16; Temp 98.2; Pulse Ox 100% on R/A; Weight 88.45 kg; pf1 Height 5 ft. 11 in. ; Pain 0/10; 05:58 Body Mass Index 27.20 (88.45 kg, 180.34 cm) pf1 05:58 Pain Scale: Adult pf1 MDM: 06:03 Patient medically screened. sp4 06:22 Differential Diagnosis: hypoglycemia, overdose, seizure, volume depletion. Data sp4 reviewed: vital signs, nurses notes. ED course: Patient has improved after lorazepam and also after ondansetron. Patient is stable for discharge home. Administered Medications: 06:05 CANCELLED (Duplicate Order): zofran4 mg IM once pf1 06:10 Drug: LORazepam IM 2 mg IM once Route: IM; Site: right gluteus; pf1 06:29 Follow up: Response: No adverse reaction; Marked relief of symptoms pf1 06:10 Drug: Ondansetron PO 4 mg PO once Route: PO; pf1 06:29 Follow up: Response: No adverse reaction; Marked relief of symptoms pf1 Disposition Summary: 05/02/23 06:22 Discharge Ordered Notes: Location: Home sp4 Problem: new sp4 Symptoms: have improved sp4 Condition: Stable sp4 Diagnosis - Anxiety disorder, unspecified sp4 - Acute panic attack sp4 Followup: sp4 - With: Private Physician - When: 7 - 10 days - Reason: Recheck today's complaints Discharge Instructions: - Discharge Summary Sheet sp4 - Managing Anxiety, Teen sp4 Forms: - Patient Portal Instructions sp4 Signatures: Sayda Fernandes RN RN pf1 Zac Galvan MD MD sp4 Corrections: (The following items were deleted from the chart) 06:05 06:02 Zofran IM 4 mg IM once ordered. sp4 pf1
[2023-05-02 06:38] VITALS: BP 129/89; TEMP 98.2; O2SAT 100
== END 2023-05-02 06:30 | disposition home or self-care (01) ==
LOC: ER 05:44
DX: F41.0 Panic disorder [episodic paroxysmal anxiety] (principal); F90.9 Attention-deficit hyperactivity disorder, unspecified type; F41.9 Anxiety disorder, unspecified; F31.9 Bipolar disorder, unspecified; B00.9 Herpesviral infection, unspecified
CPT/HCPCS: 96372; 99284; Q0162

== ENCOUNTER → 2023-07-19 | Emergency (ER) | payer OTHER ==
[~2023-07-19] MED LIST: CEFTRIAXONE 1000 MG/VIAL ONE; DICYCLOMINE HCL 10 MG CAP ONE; DIPHENHYDRAMINE 50 MG/ML VIAL ONE; DOXYCYCLINE 100 MG CAP PO ONE; FAMOTIDINE 20 MG/2 ML VIAL IV ONE; KETOROLAC 30 MG/ML INJ ONE; LIDOCAINE 1% MPF 2 ML AMPULE ONE; NA CHLORIDE 0.9% 1,000 ML ONE; ONDANSETRON 4 MG/2 ML VIAL ONE; metroNIDAZOLE 500 MG TABLET ONE
[2023-07-19 04:22] LABS: Absolute Lymphocytes (CBC) 2.3 K/uL (0.7-4.9); Hematocrit 42.6 % (39.6-49.0); Lymphocytes % 29.9 % (15.3-44.8); MCV 87.3 fL (80-100); MPV 8.7 fL (7.6-11.3); Platelets 140 thou/uL (152-406); RBC Red Blood Cell Count 4.88 M/uL (4.33-5.43)
[2023-07-19 04:39] LABS: Bilirubin Total 0.5 mg/dL (0.2-1.0); Potassium 3.6 mEq/L (3.5-5.1)
[2023-07-19 05:22] LABS: Specific Gravity 1.015 (1.005-1.030); Urine Bacteria None Seen /HPF (<20); Urine Bilirubin NEGATIVE (Negative); Urine Blood Negative (Negative); Urine Clarity Clear (Clear); Urine Color Light-Yellow (Yellow); Urine Glucose NEGATIVE (Negative); Urine Protein NEGATIVE (Negative); Urine RBC None Seen /HPF (None Seen); Urine Urobilinogen Normal (Normal); Urine pH 5.5 (5.0-7.0)
--- NOTE | 2023-07-19 06:26 | ER ---
Nurse's Notes [facility] Name: Juan Campos Age: 47 yrs Sex: Male : 1975 Arrival Date: 07/19/2023 Time: 03:02 Bed 7 Private MD: Diagnosis: Lower abdominal pain, unspecified;Penile discharge, bilateral lower abdominal pain Presentation: 07/19 03:40 Chief complaint: Patient states: ABD PAIN. STATES HE ATE SOME PROBIOTIC YOGURT AND IT jj7 STARTED TO HURT AFTER THAT TONIGHT. Coronavirus screen: At this time, the client does not indicate any symptoms associated with coronavirus-19. Ebola Screen: No symptoms or risks identified at this time. Initial Sepsis Screen: Does the patient meet any 2 criteria? No. Patient's initial sepsis screen is negative. Does the patient have a suspected source of infection? No. Patient's initial sepsis screen is negative. Risk Assessment: Do you want to hurt yourself or someone else? Patient reports no desire to harm self or others. Onset of symptoms was July 18, 2023. 03:40 Method Of Arrival: Ambulatory 7 03:40 Acuity: [place]AF[place] 3 jj7 Triage Assessment: 03:40 General: Appears in no apparent distress. comfortable, Behavior is calm, cooperative, jj7 appropriate for age. General: Appears. Pain: Complains of pain in abdomen. GI: Reports lower abdominal pain, upper abdominal pain. Historical: - Allergies: 04:01 No Known Allergies; jj7 - PMHx: 04:01 Anxiety; jj7 - PSHx: 04:01 hernia repair; jj7 - Immunization history:: Adult Immunizations up to date, Flu vaccine is not up to date. - Social history:: Smoking status: Patient denies any tobacco usage or history of. Patient/guardian denies using alcohol, street drugs. - Family history:: not pertinent. Screenin:40 [facility] ED Fall Risk Assessment (Adult) History of falling in the last 3 months, jj7 including since admission No falls in past 3 months (0 pts) Confusion or Disorientation No (0 pts) Intoxicated or Sedated No (0 pts) Impaired Gait Yes (1 pt) Mobility Assist Device Used No (0 pt) Altered Elimination No (0 pt) Score/Fall Risk Level 0 - 2 = Low Risk Oriented to surroundings, Maintained a safe environment, Educated pt \T\ family on fall prevention, incl call for assistance when getting out of bed. Abuse screen: Denies threats or abuse. Nutritional screening: No deficits noted. Tuberculosis screening: No symptoms or risk factors identified. Assessment: 03:40 Reassessment: SEE TRIAGE ASSESSMENT. [facility] 04:45 Reassessment: Patient appears in no apparent distress at this time. No changes from [facility] previously documented assessment. Patient and/or family updated on plan of care and expected duration. Pain level reassessed. Patient is alert, oriented x 3, equal unlabored respirations, skin warm/dry/pink. 04:45 GI: Abdomen is round non-distended, Bowel sounds present X 4 quads. Abd is soft and non jw7 tender X 4 quads. 05:45 Reassessment: Patient appears in no apparent distress at this time. No changes from [facility] previously documented assessment. Patient and/or family updated on plan of care and expected duration. Pain level reassessed. Patient is alert, oriented x 3, equal unlabored respirations, skin warm/dry/pink. 06:36 Reassessment: Patient appears in no apparent distress at this time. Patient and/or jw7 family updated on plan of care and expected duration. Pain level reassessed. Patient is alert, oriented x 3, equal unlabored respirations, skin warm/dry/pink. Vital Signs: 03:40 BP 125 / 86; Pulse 70; Resp 18; Temp 98.6; Pulse Ox 100% ; Weight 81.65 kg; Height 5 [facility] ft. 9 in. ; Pain 5/10; 04:00 BP 111 / 81; Pulse 65; Resp 18 S; Pulse Ox 100% on R/A; jw7 05:00 BP 128 / 93; Pulse 57; Resp 17 S; Pulse Ox 99% on R/A; jw7 06:00 BP 115 / 79; Pulse 55; Resp 18 S; Pulse Ox 99% on R/A; jw7 03:40 Body Mass Index 26.58 (81.65 kg, 175.26 cm) [facility] 03:40 Pain Scale: Adult [facility] ED Course: 03:08 Patient arrived in ED. gm2 03:16 Zac Galvan MD is Attending Physician. sp4 03:40 Arm band placed on right wrist. Patient placed in an exam room, on a stretcher. jj7 03:40 Patient has correct armband on for positive identification. Bed in low position. Call jj7 light in reach. 04:01 Triage completed. jj7 04:24 CMP Sent. jj7 04:24 Lipase Sent. jj7 04:24 Urinalysis w/ reflexes Sent. jj7 05:23 CT Abd/Pelvis - IV Contrast Only In Process Unspecified. EDMS 07:09 No provider procedures requiring assistance completed. IV discontinued, intact, jw7 bleeding controlled, No redness/swelling at site. Pressure dressing applied. Administered Medications: 04:23 Drug: Famotidine IVP 20 mg IVP once; dilute with 10 mL 0.9% NaCl; give over 2 minutes jj7 Route: IVP; Site: left antecubital; 07:08 Follow up: Response: No adverse reaction jw7 04:23 Drug: Dicyclomine PO 20 mg PO once Route: PO; jj7 07:08 Follow up: Response: No adverse reaction jw7 04:23 Drug: diphenhydrAMINE IVP 50 mg IVP once Route: IVP; Site: left antecubital; jj7 07:08 Follow up: Response: No adverse reaction jw7 04:24 Drug: NS 0.9% IV 1000 ml IV at 1 bolus Per protocol; 1000 mL bolus Route: IV; Rate: 1 jj7 bolus; Site: left antecubital; 07:08 Follow up: Response: No adverse reaction; IV Status: Completed infusion; IV Intake: jw7 1000ml 04:24 Drug: TORadol - Ketorolac IVP 15 mg IVP once Route: IVP; Site: left antecubital; jj7 07:09 Follow up: Response: No adverse reaction jw7 04:24 Drug: Ondansetron IVP 4 mg IVP once; over 2 minutes Route: IVP; Site: left antecubital; jj7 07:09 Follow up: Response: No adverse reaction jw7 07:04 Drug: Rocephin (cefTRIAXone) IM 1 grams IM once Route: IM; Site: left ventrogluteal; jw7 07:08 Follow up: Response: No adverse reaction jw7 07:04 Drug: Doxycycline PO 100 mg PO once Route: PO; jw7 07:08 Follow up: Response: No adverse reaction jw7 07:04 Drug: metroNIDAZOLE PO 500 mg PO once Route: PO; jw7 07:08 Follow up: Response: No adverse reaction jw7 Medication: 03:40 VIS not applicable for this client. jj7 Intake: 07:08 IV: 1000ml; Total: 1000ml. jw7 Outcome: 06:25 Discharge ordered by . deric 07:14 Discharged to home ambulatory, ld1 07:14 Condition: stable 07:14 Discharge instructions given to patient, Instructed on discharge instructions, follow up and referral plans. medication usage, Demonstrated understanding of instructions, follow-up care, medications, Prescriptions given X 2, 07:14 Patient left the ED. ld1 Signatures: Dispatcher [employer] EDMS Adelaida Alcala RN RN ld1 Janell Greenwood RN RN jw7 Fuad Fernandez RN RN jj7 Zac Galvan MD MD sp4 Rosario Phillips [facility]
--- NOTE | 2023-07-19 06:26 | EDPHYS ---
Physician Documentation [facility] Name: Juan Campos Age: 47 yrs Sex: Male : 1975 Arrival Date: 07/19/2023 Time: 03:02 Bed 7 Private MD: ED Physician Zac Galvan HPI: 07/19 03:16 This 47 yrs old Male presents to ER via Unassigned with complaints of sp4 Dizziness, Abdominal Pain. 06:21 Is a very pleasant 47-year-old male who presents with complaint of lower abdominal pain sp4 in the penile drip. Patient states he has had unprotected intercourse with another female and after this he has developed lower abdominal pain in the dribble of penis. Historical: - Allergies: 04:01 No Known Allergies; jj7 - PMHx: 04:01 Anxiety; jj7 - PSHx: 04:01 hernia repair; jj7 - Immunization history:: Adult Immunizations up to date, Flu vaccine is not up to date. - Social history:: Smoking status: Patient denies any tobacco usage or history of. Patient/guardian denies using alcohol, street drugs. - Family history:: not pertinent. ROS: 06:21 Constitutional: Negative for fever, chills, and weight loss, positive lower abdominal sp4 pain positive penile discharge 06:21 All other systems are negative, Exam: 06:21 Constitutional: This is a well developed, well nourished patient who is awake, alert, sp4 and in no acute distress. Head/Face: Normocephalic, atraumatic. Eyes: Pupils equal round and reactive to light, extra-ocular motions intact. Lids and lashes normal. Conjunctiva and sclera are not injected. Cornea within normal limits. Periorbital areas with no swelling, redness, or edema. ENT: Nares patent. No nasal discharge, no septal abnormalities noted. Tympanic membranes are normal and external auditory canals are clear. Oropharynx with no redness, swelling, or masses, exudates, or evidence of obstruction, uvula midline. Mucous membranes moist. Neck: Trachea midline, no thyromegaly or masses palpated, and no cervical lymphadenopathy. Supple, full range of motion without nuchal rigidity, or vertebral point tenderness. Chest/axilla: Normal chest wall appearance and motion. Nontender with no deformity. No lesions are appreciated. Cardiovascular: Regular rate and rhythm with a normal S1 and S2. No gallops, murmurs, or rubs. Normal PMI, no JVD. No pulse deficits. Respiratory: Lungs have equal breath sounds bilaterally, clear to auscultation and percussion. No rales, rhonchi or wheezes noted. No increased work of breathing, no retractions or nasal flaring. Abdomen/GI: Soft, non-tender, with normal bowel sounds. No distension or tympany. No guarding or rebound. No evidence of tenderness throughout. Back: No spinal tenderness. No costovertebral tenderness. Male : Normal genitalia with no discharge or lesions. No sign of penile discharge Skin: Warm, dry with normal turgor. Normal color with no rashes, no lesions, and no evidence of cellulitis. MS/ Extremity: Pulses equal, no cyanosis. Neurovascular intact. Full, normal range of motion. Neuro: Awake and alert, GCS 15, oriented to person, place, time, and situation. Cranial nerves II-XII grossly intact. Motor strength 5/5 in all extremities. Sensory grossly intact. Psych: Awake, alert, with orientation to person, place and time. Behavior, mood, and affect are within normal limits Vital Signs: 03:40 BP 125 / 86; Pulse 70; Resp 18; Temp 98.6; Pulse Ox 100% ; Weight 81.65 kg; Height 5 jj7 ft. 9 in. ; Pain 5/10; 04:00 BP 111 / 81; Pulse 65; Resp 18 S; Pulse Ox 100% on R/A; jw7 05:00 BP 128 / 93; Pulse 57; Resp 17 S; Pulse Ox 99% on R/A; jw7 06:00 BP 115 / 79; Pulse 55; Resp 18 S; Pulse Ox 99% on R/A; jw7 03:40 Body Mass Index 26.58 (81.65 kg, 175.26 cm) jj7 03:40 Pain Scale: Adult jj7 MDM: 03:23 Patient medically screened. sp4 06:12 ED course: CT - EXAM: CTAbdomen and Pelvis With Intravenous Contrast CLINICAL HISTORY: sp4 The patient is 47 years old and is Male; ABD PAIN TECHNIQUE: Axial computed tomography images of the abdomen and pelvis with intravenous contrast. Sagittal and coronal reformatted images were created and reviewed. This CT exam was performed using one or more of the following dose reduction techniques: automated exposure control, adjustment of the mA and/or kV according to patient size, and/or use of iterative reconstruction technique. COMPARISON: October 04, 2022. No splenomegaly. 2.0 cm splenic cyst. No follow-up imaging recommended. FINDINGS: Lung bases: Unremarkable. No mass. No consolidation. ABDOMEN: Liver: Hepatic cysts, largest measuring 2.5 cm. No follow-up imaging recommended. Gallbladder and bile ducts: Unremarkable. No calcified stones. No ductal dilation. Pancreas: No findings to suggest acute pancreatitis. No mass visualized. No ductal dilation. Spleen: Unremarkable. No splenomegaly. Adrenals: Unremarkable. No mass. Kidneys and ureters: Unremarkable. No solid mass. No hydronephrosis. Stomach and bowel: No bowel dilatation or obstruction. No bowel wall thickening. PELVIS: Appendix: The visualized appendix is normal. No pericecal inflammation to suggest acute appendicitis. Bladder: Bladder is full but otherwise unremarkable. Reproductive: Mild prostate gland enlargement. ABDOMEN and PELVIS: Intraperitoneal space: Unremarkable. No free air. No significant fluid collection. Bones/joints: Vertebral Schmorl's nodes. No acute fracture visualized. No dislocation. Soft tissues: Unremarkable. Vasculature: Unremarkable. No abdominal aortic aneurysm. Lymph nodes: No pathologically enlarged lymph nodes. IMPRESSION: No acute obstructive or inflammatory process identified. Normal appendix. . 06:21 Differential diagnosis: hyperventilation, hypovolemia, vertigo. Data reviewed: vital sp4 signs, nurses notes, old medical records, lab test result(s), radiologic studies, CT scan. ED course: There is no penile discharge however we will treat for STD just in case. 07/19 03:24 Order name: CBC with Diff; Complete Time: 05: sp4 07/19 03:24 Order name: CMP; Complete Time: sp4 07/19 03:24 Order name: Lipase; Complete Time: 4 07/19 03:24 Order name: Urinalysis w/ reflexes; Complete Time: 4 07/19 03:24 Order name: CT Abd/Pelvis - IV Contrast Only sp4 07/19 03:24 Order name: IV Saline Lock; Complete Time: 04:24 4 07/19 03:24 Order name: Labs collected and sent; Complete Time: 04:24 sp4 Administered Medications: 04:23 Drug: Famotidine IVP 20 mg IVP once; dilute with 10 mL 0.9% NaCl; give over 2 minutes jj7 Route: IVP; Site: left antecubital; 07:08 Follow up: Response: No adverse reaction jw7 04:23 Drug: Dicyclomine PO 20 mg PO once Route: PO; jj7 07:08 Follow up: Response: No adverse reaction jw7 04:23 Drug: diphenhydrAMINE IVP 50 mg IVP once Route: IVP; Site: left antecubital; jj7 07:08 Follow up: Response: No adverse reaction jw7 04:24 Drug: NS 0.9% IV 1000 ml IV at 1 bolus Per protocol; 1000 mL bolus Route: IV; Rate: 1 jj7 bolus; Site: left antecubital; 07:08 Follow up: Response: No adverse reaction; IV Status: Completed infusion; IV Intake: jw7 1000ml 04:24 Drug: TORadol - Ketorolac IVP 15 mg IVP once Route: IVP; Site: left antecubital; jj7 07:09 Follow up: Response: No adverse reaction jw7 04:24 Drug: Ondansetron IVP 4 mg IVP once; over 2 minutes Route: IVP; Site: left antecubital; jj7 07:09 Follow up: Response: No adverse reaction jw7 07:04 Drug: Rocephin (cefTRIAXone) IM 1 grams IM once Route: IM; Site: left ventrogluteal; jw7 07:08 Follow up: Response: No adverse reaction jw7 07:04 Drug: Doxycycline PO 100 mg PO once Route: PO; jw7 07:08 Follow up: Response: No adverse reaction jw7 07:04 Drug: metroNIDAZOLE PO 500 mg PO once Route: PO; jw7 07:08 Follow up: Response: No adverse reaction jw7 Disposition Summary: 07/19/23 06:25 Discharge Ordered Notes: Location: Home sp4 Problem: new sp4 Symptoms: have improved sp4 Condition: Stable sp4 Diagnosis - Lower abdominal pain, unspecified sp4 - Penile discharge, bilateral lower abdominal pain sp4 Followup: sp4 - With: Private Physician - When: 7 - 10 days - Reason: Recheck today's complaints Discharge Instructions: - Discharge Summary Sheet sp4 - Preventing Sexually Transmitted Infections, Adult sp4 Forms: - Patient Portal Instructions sp4 Prescriptions: - Flagyl 500 mg Oral tablet - take 1 tablet ORAL route every 8 hours for 3 days; 9 tablet; Refills: 0, sp4 Product Selection Permitted - Doxycycline Monohydrate 100 mg Oral Tablet - take 1 tablet ORAL route every 12 hours for 10 days; 20 tablet; Refills: 0, sp4 Product Selection Permitted Signatures: Dispatcher [employer] Janell Dupree RN RN jw7 Fuad Fernandez RN RN jj7 Zac Galvan MD MD sp4
[2023-07-19 07:24] VITALS: BP 115/79; TEMP 98.6; O2SAT 99
--- NOTE | 2023-07-19 10:29 | RAD REPORT ---
EXAM DESCRIPTION: CT Abdomen and Pelvis With Intravenous Contrast CLINICAL HISTORY: The patient is 47 years old and is Male; ABD PAIN TECHNIQUE: Axial computed tomography images of the abdomen and pelvis with intravenous contrast. S agittal and coronal reformatted images were created and reviewed. This CT exam was performed using one or more of the following dose reduction techniques: automated exposure control, adjustment of t he mA and/or kV according to patient size, and/or use of iterative reconstruction technique. COMPARISON: October 04, 2022. No splenomegaly. 2.0 cm splenic cyst. No follow-up imaging recommended. FINDINGS: Lung bases: Unremarkable. No mass. No consolidation. ABDOMEN: Liver: Hepatic cysts, largest measuring 2.5 cm. No follow-up imaging recommended. Gallbladder and bile ducts: Unremarkable. No calcified stones. No ductal dilation. Pancreas: No findings to suggest acute pancreatitis. No mass visualized. No ductal dilation. Spleen: Unremarkable. No splenomegaly. Adrenals: Unremarkable. No mass. Kidneys and ureters: Unremarkable. No solid mass. No hydronephrosis. Stomach and bowel: No bowel dilatation or obstruction. No bowel wall thickening. PELVIS: Appendix: The visualized appendix is normal. No pericecal inflammation to suggest acute appendici tis. Bladder: Bladder is full but otherwise unremarkable. Reproductive: Mild prostate gland enlargement. ABDOMEN and PELVIS: Intraperitoneal space: Unremarkable. No free air. No significant fluid collection. Bones/joints: Vertebral Schmorl's nodes. No acute fracture visualized. No dislocation. Soft tissues: Unremarkable. Vasculature: Unremarkable. No abdominal aortic aneurysm. Lymph nodes: No pathologically enlarged lymph nodes. IMPRESSION: No acute obstructive or inflammatory process identified. Normal appendix. Electronically signed by: Chasity Eli MD 07/19/2023 05:56 AM ENROLLMENT COUNSELOR Due to temporary technical issues with the PACS/Fluency reporting system, reports are being signed by the in house radiologist without review as a courtesy to ensure prompt reporting. The interpreting r adiologist is fully responsible for the content of the report.
== END ==
LOC: ER 03:02
DX: R10.32 Left lower quadrant pain (principal); R10.31 Right lower quadrant pain; R36.9 Urethral discharge, unspecified
CPT/HCPCS: 85025; 81001; 36415; 83690; 80053; 74177; Q9967; J1200; J2405; J7030; J0696

== ENCOUNTER → 2023-07-22 | Emergency (ER) | payer OTHER ==
[~2023-07-22] MED LIST changes: -CEFTRIAXONE 1000 MG/VIAL ONE; +CEFTRIAXONE 500 MG/VIAL ONE; -DIPHENHYDRAMINE 50 MG/ML VIAL ONE; -DOXYCYCLINE 100 MG CAP PO ONE; -FAMOTIDINE 20 MG/2 ML VIAL IV ONE; -LIDOCAINE 1% MPF 2 ML AMPULE ONE; -metroNIDAZOLE 500 MG TABLET ONE
[2023-07-22 03:49] LABS: Hematocrit 41.7 % (39.6-49.0); Lymphocytes % 37.5 % (15.3-44.8); MCV 85.9 fL (80-100); MPV 8.9 fL (7.6-11.3); Platelets 143 thou/uL (152-406); RBC Red Blood Cell Count 4.85 M/uL (4.33-5.43)
[2023-07-22 03:55] LABS: Specific Gravity 1.005 (1.005-1.030); Urine Bacteria None Seen /HPF (<20); Urine Bilirubin NEGATIVE (Negative); Urine Blood Negative (Negative); Urine Clarity Clear (Clear); Urine Color Colorless (Yellow); Urine Glucose NEGATIVE (Negative); Urine Protein NEGATIVE (Negative); Urine RBC <5 /HPF (None Seen); Urine Urobilinogen Normal (Normal)
[2023-07-22 04:09] LABS: Albumin 3.8 g/dL (3.4-5.0); Bilirubin Total 0.6 mg/dL (0.2-1.0); Potassium 3.5 mEq/L (3.5-5.1); Protein, Total 7.3 g/dL (6.4-8.2)
--- NOTE | 2023-07-22 04:27 | ER ---
Nurse's Notes [facility] Name: Juan Campos Age: 47 yrs Sex: Male : 1975 Arrival Date: 07/22/2023 Time: 03:02 Bed 4 Private MD: Diagnosis: Nausea with vomiting, unspecified;Diarrhea, unspecified Presentation: 07/22 03:10 Chief complaint: Patient states: continuous burning pain of the abdomen, since 0200, rv with vomiting and diarrhea(3x). denies fever. Coronavirus screen: At this time, the client does not indicate any symptoms associated with coronavirus-19. Ebola Screen: No symptoms or risks identified at this time. Initial Sepsis Screen: Does the patient meet any 2 criteria? No. Patient's initial sepsis screen is negative. Does the patient have a suspected source of infection? No. Patient's initial sepsis screen is negative. Risk Assessment: Do you want to hurt yourself or someone else? Patient reports no desire to harm self or others. Onset of symptoms was July 22, 2023. 03:10 Method Of Arrival: Ambulatory rv 03:10 Acuity: [place] 3 rv Triage Assessment: 03:12 General: Appears uncomfortable, Behavior is calm, cooperative. Pain: Complains of pain rv in abdomen. Neuro: Level of Consciousness is awake, alert, obeys commands, Oriented to person, place, time, situation. Cardiovascular: Capillary refill < 3 seconds Patient's skin is warm and dry. Respiratory: Airway is patent Respiratory effort is even, unlabored. GI: Abdomen is round non-distended, Reports diarrhea, nausea, vomiting, since 0200. : No signs and/or symptoms were reported regarding the genitourinary system. Derm: Skin is intact. Historical: - Allergies: 03:12 No Known Allergies; rv - Home Meds: 03:12 None [Active]; rv - PMHx: 03:12 Anxiety; rv - PSHx: 03:12 hernia repair; rv - Immunization history:: Adult Immunizations up to date. - Social history:: Smoking status: Patient denies any tobacco usage or history of. - Family history:: not pertinent. Screenin:[address] [facility] ED Fall Risk Assessment (Adult) History of falling in the last 3 months, rv including since admission No falls in past 3 months (0 pts) Score/Fall Risk Level 0 - 2 = Low Risk Oriented to surroundings, Maintained a safe environment, Educated pt \T\ family on fall prevention, incl call for assistance when getting out of bed, Assessed \T\ reinforced patient's understanding of fall precautions. Abuse screen: Denies threats or abuse. Denies injuries from another. Nutritional screening: No deficits noted. Tuberculosis screening: No symptoms or risk factors identified. Assessment: 03:57 General: Appears uncomfortable, Behavior is calm, cooperative. tm6 03:57 Pain: Complains of pain in abdomen Quality of pain is described as burning. Neuro: tm6 Level of Consciousness is awake, alert, obeys commands, Oriented to person, place, time, situation. Cardiovascular: Capillary refill < 3 seconds Patient's skin is warm and dry. Respiratory: Airway is patent Respiratory effort is even, unlabored, Respiratory pattern is regular, symmetrical. GI: Bowel sounds present X 4 quads. Abdomen is tender to palpation in right lower quadrant and left lower quadrant Reports lower abdominal pain, diarrhea, nausea, vomiting. : No signs and/or symptoms were reported regarding the genitourinary system. EENT: No signs and/or symptoms were reported regarding the EENT system. Derm: No signs and/or symptoms reported regarding the dermatologic system. Musculoskeletal: No signs and/or symptoms reported regarding the musculoskeletal system. 04:32 Reassessment: Patient appears in no apparent distress at this time. No changes from tm6 previously documented assessment. Vital Signs: 03:07 BP 142 / 73; Pulse 74; Resp 24 S; Temp 97.6(TE); Pulse Ox 100% on R/A; Weight 81.65 kg rv1 (R); Height 5 ft. 9 in. ; Pain 9/10; 04:31 BP 120 / 68; Pulse 66; Resp 19; Temp 97.5(TE); Pulse Ox 99% ; Pain 1/10; tm6 03:07 Body Mass Index 26.58 (81.65 kg, 175.26 cm) rv1 03:07 Pain Scale: Adult rv1 04:31 Pain Scale: Adult tm6 ED Course: 03:03 Patient arrived in ED. jj6 03:03 Caleb Shay MD is Attending Physician. rt 03:12 Triage completed. rv 03:12 Arm band placed on right wrist. rv 03:14 Patient has correct armband on for positive identification. Client placed on continuous rv cardiac and pulse oximetry monitoring. NIBP monitoring applied. 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 03:14 No provider procedures requiring assistance completed. rv 03:27 Urinalysis w/ reflexes Sent. tm6 03:30 Inserted saline lock: 20 gauge in left antecubital area, using aseptic technique. Blood rv collected. 03:57 Provided Education on: plan of care. Door closed. Noise minimized. Lights dimmed. tm6 04:54 IV discontinued, intact, bleeding controlled, No redness/swelling at site. Pressure tm6 dressing applied. Administered Medications: 03:27 Not Given (Duplicate Order): [id number] mg IM once rt 03:56 Drug: NS 0.9% IV 1000 ml IV at 1 bolus Per protocol; 1000 mL bolus Route: IV; Rate: 1 tm6 bolus; Site: left antecubital; 03:56 Drug: TORadol - Ketorolac IVP 15 mg IVP once Route: IVP; Site: left antecubital; tm6 03:56 Drug: Ondansetron IVP 4 mg IVP once; over 2 minutes Route: IVP; Site: left antecubital; tm6 03:56 Drug: Rocephin (cefTRIAXone) IM 500 mg IM once Route: IM; Site: right ventrogluteal; tm6 03:56 Drug: Dicyclomine PO 20 mg PO once Route: PO; tm6 Medication: 03:14 VIS not applicable for this client. rv Outcome: 04:26 Discharge ordered by MD. rt 04:54 Discharged to home ambulatory, tm6 04:54 Condition: stable 04:54 Discharge instructions given to patient, Instructed on discharge instructions, follow up and referral plans. medication usage, Demonstrated understanding of instructions, follow-up care, medications, 04:54 Patient left the ED. tm6 Signatures: José Antonio Yen RN RN rv Angelica Singh Ryan, MD MD rt Jackie Ge rvAlma Moore RN RN tm6
--- NOTE | 2023-07-22 04:27 | EDPHYS ---
Physician Documentation [facility] Name: Juan Campos Age: 47 yrs Sex: Male : 1975 Arrival Date: 07/22/2023 Time: 03:02 Bed 4 Private MD: ED Physician Caleb Shay HPI: 07/22 03:38 This 47 yrs old Male presents to ER via Ambulatory with complaints of Abdominal Pain, rt Nausea/Vomiting. 03:38 Patient presents to the ED with abdominal pain, nausea, vomiting, diarrhea starting rt about 2. The pain is burning in nature is in the suprapubic region. Reports having unprotected sex, is concerned that he has an STI. Reports of burning in his penis. Denies hematemesis, hematochezia. Denies other acute complaints, symptoms are moderate in severity, no other aggravating elevating factors. Of note, patient was seen in the ED a few days ago for the same symptoms, had a negative CT scan, negative workup will subsequently discharge.. Historical: - Allergies: 03:12 No Known Allergies; rv - Home Meds: 03:12 None [Active]; rv - PMHx: 03:12 Anxiety; rv - PSHx: 03:12 hernia repair; rv - Immunization history:: Adult Immunizations up to date. - Social history:: Smoking status: Patient denies any tobacco usage or history of. - Family history:: not pertinent. ROS: 03:38 Constitutional: \E\ Cardiovascular: Negative for chest pain, palpitations, and edema, rt Respiratory: Negative for shortness of breath, cough, wheezing, and pleuritic chest pain, MS/Extremity: Negative for injury and deformity, Skin: Negative for injury, rash, and discoloration, Neuro: Negative for headache, weakness, numbness, tingling, and seizure, 03:38 Abdomen/GI: Positive for abdominal pain, nausea, vomiting, and diarrhea, 03:38 : Positive for burning with urination, Negative for hematuria, Exam: 03:38 Constitutional: This is a well developed, well nourished patient who is awake, alert, rt and in no acute distress. Head/Face: Normocephalic, atraumatic. Chest/axilla: Normal chest wall appearance and motion. Nontender with no deformity. No lesions are appreciated. Cardiovascular: Regular rate and rhythm with a normal S1 and S2. No gallops, murmurs, or rubs. Normal PMI, no JVD. No pulse deficits. Respiratory: Lungs have equal breath sounds bilaterally, clear to auscultation and percussion. No rales, rhonchi or wheezes noted. No increased work of breathing, no retractions or nasal flaring. Skin: Warm, dry with normal turgor. Normal color with no rashes, no lesions, and no evidence of cellulitis. MS/ Extremity: Pulses equal, no cyanosis. Neurovascular intact. Full, normal range of motion. Neuro: Awake and alert, GCS 15, oriented to person, place, time, and situation. Cranial nerves II-XII grossly intact. Motor strength 5/5 in all extremities. Sensory grossly intact. Cerebellar exam normal. Normal gait. 03:38 Abdomen/GI: Mild tenderness to the suprapubic region, no guarding, rebound, distention, no focal right lower or right upper quadrant tenderness, Vital Signs: 03:07 BP 142 / 73; Pulse 74; Resp 24 S; Temp 97.6(TE); Pulse Ox 100% on R/A; Weight 81.65 kg rv1 (R); Height 5 ft. 9 in. ; Pain 9/10; 04:31 BP 120 / 68; Pulse 66; Resp 19; Temp 97.5(TE); Pulse Ox 99% ; Pain 1/10; tm6 03:07 Body Mass Index 26.58 (81.65 kg, 175.26 cm) rv1 03:07 Pain Scale: Adult rv1 04:31 Pain Scale: Adult tm6 MDM: 03:19 Patient medically screened. rt 04:41 Differential diagnosis: Medication side effect, urethritis, UTI. Data reviewed: vital rt signs, nurses notes, lab test result(s). Test considered but Not performed: CT: Patient is stable labs, negative CT scan just a few days ago. No focal right lower quadrant tenderness to suggest an appendicitis. Do not believe that radiation is warranted in this case and CT scan not had. Counseling: I had a detailed discussion with the patient and/or guardian regarding the historical points, exam findings, and any diagnostic results supporting the discharge/admit diagnosis, lab results, the need for outpatient follow up. 07/22 03:26 Order name: CBC with Diff; Complete Time: :54 rt 07/22 03:26 Order name: CMP; Complete Time: 04:18 rt 07/22 03:26 Order name: Lipase; Complete Time: 04:18 rt 07/22 03:26 Order name: Urinalysis w/ reflexes; Complete Time: 03:59 rt 07/22 04:25 Order name: GC (Raymundo/Chl) Probe URINE rt 07/22 03:26 Order name: IV Saline Lock; Complete Time: 03:29 rt 07/22 03:26 Order name: Labs collected and sent; Complete Time: 03:29 rt Administered Medications: 03:27 Not Given (Duplicate Order): mg IM once rt 03:56 Drug: NS 0.9% IV 1000 ml IV at 1 bolus Per protocol; 1000 mL bolus Route: IV; Rate: 1 tm6 bolus; Site: left antecubital; 03:56 Drug: TORadol - Ketorolac IVP 15 mg IVP once Route: IVP; Site: left antecubital; tm6 03:56 Drug: Ondansetron IVP 4 mg IVP once; over 2 minutes Route: IVP; Site: left antecubital; tm6 03:56 Drug: Rocephin (cefTRIAXone) IM 500 mg IM once Route: IM; Site: right ventrogluteal; tm6 03:56 Drug: Dicyclomine PO 20 mg PO once Route: PO; tm6 Disposition Summary: 07/22/23 04:26 Discharge Ordered Notes: Location: Home rt Problem: new rt Symptoms: have improved rt Condition: Stable rt Diagnosis - Nausea with vomiting, unspecified rt - Diarrhea, unspecified rt Followup: rt - With: Private Physician - When: 2 - 3 days - Reason: Discharge Instructions: - Discharge Summary Sheet rt - Diarrhea, Adult rt - Nausea and Vomiting, Adult rt Forms: - Medication Reconciliation Form rt - Thank You Letter rt - Antibiotic Education rt - Prescription Opioid Use rt - Patient Portal Instructions rt - Leadership Thank You Letter rt Prescriptions: - ondansetron 4 mg Oral Tablet,disintegrating - take 1 tablet ORAL route every 6 hours as needed for nausea and vomiting; 30 rt tablet; Refills: 0, Product Selection Permitted - dicyclomine 10 mg Oral capsule - take 1 capsule ORAL route 3 times per day; 18 capsule; Refills: 0, Product rt Selection Permitted Signatures: Dispatcher [employer] EDMS Farshad, José Antonio, RN RN rv Caleb Shay MD MD rt Alma Hernandez RN RN tm6
[2023-07-22 05:09] VITALS: BP 120/68; TEMP 97.5; O2SAT 99
== END ==
LOC: ER 03:02
DX: R11.2 Nausea with vomiting, unspecified (principal); R19.7 Diarrhea, unspecified; R30.0 Dysuria
CPT/HCPCS: 85025; 81001; 36415; 83690; 80053; 96375; 96372; 96374; 99285; J2405; J7030

== ENCOUNTER → 2023-07-26 | Emergency (ER) | payer OTHER ==
--- NOTE | 2023-07-26 03:50 | EDPHYS ---
Physician Documentation [facility] Name: Juan Campos Age: 47 yrs Sex: Male : 1975 Arrival Date: 07/26/2023 Time: 03:14 Bed 18 Private MD: ED Physician Zac Gavlan HPI: 07/26 03:22 This 47 yrs old Male presents to ER via Unassigned with complaints of sp4 Black/Tarry Stools. 05:26 Patient presents with complaint of black tarry stools x 3 episodes in the last 2 days. sp4 Historical: - Allergies: 03:36 No Known Allergies; vc1 - PMHx: 03:36 Anxiety; vc1 - PSHx: 03:36 hernia repair; vc1 - Immunization history:: Client reports receiving the 2nd dose of the Covid vaccine, Flu vaccine is not up to date. - Social history:: Smoking status: Patient denies any tobacco usage or history of. - Family history:: not pertinent. ROS: 05:26 Constitutional: Negative for fever, chills, and weight loss, sp4 05:26 Abdomen/GI: Positive for Positive for black tarry stools, 05:26 All other systems are negative, Exam: 05:26 Constitutional: This is a well developed, well nourished patient who is awake, alert, sp4 and in no acute distress. Head/Face: Normocephalic, atraumatic. Eyes: Pupils equal round and reactive to light, extra-ocular motions intact. Lids and lashes normal. Conjunctiva and sclera are not injected. Cornea within normal limits. Periorbital areas with no swelling, redness, or edema. ENT: Nares patent. No nasal discharge, no septal abnormalities noted. Tympanic membranes are normal and external auditory canals are clear. Oropharynx with no redness, swelling, or masses, exudates, or evidence of obstruction, uvula midline. Mucous membranes moist. Neck: Trachea midline, no thyromegaly or masses palpated, and no cervical lymphadenopathy. Supple, full range of motion without nuchal rigidity, or vertebral point tenderness. Chest/axilla: Normal chest wall appearance and motion. Nontender with no deformity. No lesions are appreciated. Cardiovascular: Regular rate and rhythm with a normal S1 and S2. No gallops, murmurs, or rubs. Normal PMI, no JVD. No pulse deficits. Respiratory: Lungs have equal breath sounds bilaterally, clear to auscultation and percussion. No rales, rhonchi or wheezes noted. No increased work of breathing, no retractions or nasal flaring. Abdomen/GI: Soft, with normal bowel sounds. No distension or tympany. No guarding or rebound. No evidence of tenderness throughout. Back: No spinal tenderness. No costovertebral tenderness. Skin: Warm, dry with normal turgor. Normal color with no rashes, no lesions, and no evidence of cellulitis. MS/ Extremity: Pulses equal, no cyanosis. Neurovascular intact. Full, normal range of motion. Neuro: Awake and alert, GCS 15, oriented to person, place, time, and situation. Cranial nerves II-XII grossly intact. Motor strength 5/5 in all extremities. Sensory grossly intact. Psych: Awake, alert, with orientation to person, place and time. Behavior, mood, and affect are within normal limits 05:26 Abdomen/GI: Digital rectal exam in the presence of male associate drafter -- no melena, no blood, no maroon stool, no mass, normal sphincter tone,, no abnormality on digital rectal exam., Vital Signs: 03:31 BP 137 / 92; Pulse 74; Resp 18; Temp 98; Pulse Ox 100% ; Weight 86.18 kg; Height 5 ft. vc1 9 in. ; Pain 10/10; 03:31 Body Mass Index 28.06 (86.18 kg, 175.26 cm) vc1 03:31 Pain Scale: Adult vc1 MDM: 03:41 Patient medically screened. sp4 05:26 Data reviewed: vital signs, nurses notes, old medical records, Recent full abdominal sp4 workup this month. 05:28 Differential Diagnosis altered mental status, sepsis, flu, GI bleeding . ED course: sp4 Patient is well-known to me from prior visits to the emergency department. Patient has history of multiple abdominal workups. . ED course: CT report from 07/19/2023 - IMPRESSION: No acute obstructive or inflammatory process identified. Normal appendix. Electronically signed by: Chasity Eli MD 07/19/2023 05:56 AM, at that time hemoglobin was 15.0, also repeat hemoglobin 07/22/2023 ER visit is 15.0 . 05:32 ED course: Since patient just had a CAT scan and full abdominal workup on 07/19/2023 sp4 further workup is unnecessary. Digital rectal exam reveals no sign of bleeding or melena. Patient was advised to see Dr. Resendiz with gastroenterology for further investigation of his symptoms. . Administered Medications: No medications were administered Disposition Summary: 07/26/23 03:49 Discharge Ordered Notes: we recommend visit with GI specialist Location: Home sp4 Problem: new sp4 Symptoms: are unchanged sp4 Condition: Stable sp4 Diagnosis - Encounter for general adult medical examination sp4 - Encounter for general adult medical examination without abnormal findings sp4 Followup: sp4 - With: Wilian Resendiz MD - When: 7 - 10 days - Reason: Recheck today's complaints Discharge Instructions: - Discharge Summary Sheet sp4 - Medical Screening Exam sp4 Forms: - Prescription Opioid Use sp4 Signatures: Karishma Balderas RN RN vc1 Zac Galvan MD MD sp4
--- NOTE | 2023-07-26 03:50 | ER ---
Nurse's Notes [facility] Name: Juan Campos Age: 47 yrs Sex: Male : 1975 Arrival Date: 07/26/2023 Time: 03:14 Bed 18 Private MD: Diagnosis: Encounter for general adult medical examination;Encounter for general adult medical examination without abnormal findings Presentation: 07/26 03:31 Chief complaint: Patient states: I have been constipated so I did an at home enema and vc1 now I have black tarry stools. Coronavirus screen: Vaccine status: Patient reports receiving the 2nd dose of the covid vaccine. Client denies travel out of the [place] in the last 14 days. At this time, the client does not indicate any symptoms associated with coronavirus-19. Ebola Screen: Patient negative for fever greater than or equal to 101.5 degrees Fahrenheit, and additional compatible Ebola Virus Disease symptoms Patient denies exposure to infectious person. Patient denies travel to an Ebola-affected area in the 21 days before illness onset. No symptoms or risks identified at this time. Initial Sepsis Screen: Does the patient meet any 2 criteria? No. Patient's initial sepsis screen is negative. Does the patient have a suspected source of infection? No. Patient's initial sepsis screen is negative. Risk Assessment: Do you want to hurt yourself or someone else? Patient reports no desire to harm self or others. Onset of symptoms. 03:31 Method Of Arrival: Ambulatory vc1 03:31 Acuity: [place] 3 vc1 Triage Assessment: 03:37 General: Appears in no apparent distress. uncomfortable, Behavior is calm, cooperative, vc1 appropriate for age. Pain: Complains of pain in anterior aspect of left lateral abdomen Pain does not radiate. Pain currently is 10 out of 10 on a pain scale. Quality of pain is described as crampy, sharp. EENT: No deficits noted. No signs and/or symptoms were reported regarding the EENT system. Neuro: Level of Consciousness is awake, alert, obeys commands, Oriented to person, place, time, situation, Appropriate for age. Cardiovascular: No deficits noted. Respiratory: Airway is patent Respiratory effort is even, unlabored, Respiratory pattern is regular, symmetrical. GI: Abdomen is flat, non-distended, Reports bloody stool. : No deficits noted. No signs and/or symptoms were reported regarding the genitourinary system. Derm: No deficits noted. No signs and/or symptoms reported regarding the dermatologic system. Musculoskeletal: No deficits noted. No signs and/or symptoms reported regarding the musculoskeletal system. 03:42 General: see primary assessment. pf1 Historical: - Allergies: 03:36 No Known Allergies; vc1 - PMHx: 03:36 Anxiety; vc1 - PSHx: 03:36 hernia repair; vc1 - Immunization history:: Client reports receiving the 2nd dose of the Covid vaccine, Flu vaccine is not up to date. - Social history:: Smoking status: Patient denies any tobacco usage or history of. - Family history:: not pertinent. Screenin:37 [facility] ED Fall Risk Assessment (Adult) History of falling in the last 3 months, vc1 including since admission No falls in past 3 months (0 pts) Confusion or Disorientation No (0 pts) Intoxicated or Sedated No (0 pts) Impaired Gait No (0 pts) Mobility Assist Device Used No (0 pt) Altered Elimination No (0 pt) Score/Fall Risk Level 0 - 2 = Low Risk Oriented to surroundings, Maintained a safe environment, Educated pt \T\ family on fall prevention, incl call for assistance when getting out of bed. Abuse screen: Denies threats or abuse. Nutritional screening: No deficits noted. Tuberculosis screening: No symptoms or risk factors identified. Assessment: 03:38 General: Appears in no apparent distress. uncomfortable, well groomed, well developed, pf1 Behavior is calm, cooperative, appropriate for age, quiet. Pain: Complains of pain in back and abdomen Pain currently is 8 out of 10 on a pain scale. Neuro: No deficits noted. Level of Consciousness is awake, alert, obeys commands, Oriented to person, place, time, situation. Cardiovascular: No deficits noted. Capillary refill < 3 seconds Patient's skin is warm and dry. Respiratory: No deficits noted. Airway is patent Respiratory effort is even, unlabored, Respiratory pattern is regular, symmetrical. GI: Abdomen is flat, non-distended, Reports lower abdominal pain, constipation, with black stool,onset tonight. Patient stated took Pepto 3 days ago. : No deficits noted. No signs and/or symptoms were reported regarding the genitourinary system. EENT: No deficits noted. No signs and/or symptoms were reported regarding the EENT system. 03:57 Reassessment: PT CURSING AND STATING THE DR WAS A PRICK AND RUDE. STATES DR INFORMED jj7 HIM THERE WAS NO BLOOD IN HIS STOOL AND HE NEEDED TO FOLLOW UP WITH A GI DR. PT STATES HE GAVE THE HOSPITAL A BAD RATING. THIS NURSE APOLOGIZED AND GAVE DISCHARGE INSTRUCTIONS. REITERATED MD DID NOT FIND ANY BLOOD IN HIS STOOL AND TO FOLLOW UP WITH GI DR. PT VERBALIZED UNDERSTANDING AND SIGNED DISCHARGE PAPERS. Vital Signs: 03:31 BP 137 / 92; Pulse 74; Resp 18; Temp 98; Pulse Ox 100% ; Weight 86.18 kg; Height 5 ft. vc1 9 in. ; Pain 10/10; 03:31 Body Mass Index 28.06 (86.18 kg, 175.26 cm) vc1 03:31 Pain Scale: Adult vc1 ED Course: 03:15 Patient arrived in ED. jj6 03:21 Zac Galvan MD is Attending Physician. sp4 03:36 Triage completed. vc1 03:36 Arm band placed on right wrist. vc1 03:42 No provider procedures requiring assistance completed. pf1 03:43 Patient has correct armband on for positive identification. Bed in low position. Call pf1 light in reach. 03:49 Wilian Resendiz MD is Referral Physician. sp4 03:57 Patient did not have IV access during this emergency room visit. jj7 Administered Medications: No medications were administered Medication: 03:57 VIS not applicable for this client. jj7 Outcome: 03:49 Discharge ordered by . sp4 03:57 Discharged to home ambulatory, jj7 03:57 Condition: good 03:57 Discharge instructions given to patient, Instructed on discharge instructions, follow up and referral plans. Demonstrated understanding of instructions, follow-up care, 04:01 Patient left the ED. jj7 Signatures: Angelica Singh jj6 Karishma Balderas, RN RN vc1 Fuad Fernandez RN RN jj7 Sayda Fernandes RN RN pf1 Zac Galvan MD MD sp4
[2023-07-26 04:24] VITALS: BP 137/92; TEMP 98; O2SAT 100
== END ==
LOC: ER 03:14
DX: Z71.1 Person with feared health complaint in whom no diagnosis is made (principal)

== ENCOUNTER → 2023-08-24 | Emergency (ER) | payer OTHER ==
[~2023-08-24] MED LIST changes: -CEFTRIAXONE 500 MG/VIAL ONE; -DICYCLOMINE HCL 10 MG CAP ONE; -NA CHLORIDE 0.9% 1,000 ML ONE; -ONDANSETRON 4 MG/2 ML VIAL ONE
--- NOTE | 2023-08-24 19:10 | RAD REPORT ---
EXAM DESCRIPTION: CT - Pelvis Wo Cont - 08/24/2023 6:41 pm CLINICAL HISTORY: Pelvic pain/perineal pain COMPARISON: July 2023 TECHNIQUE: Computed axial tomography from above the iliac crest to below the pubic symphysis obtaine d. Coronal and sagittal reconstruction performed All CT scans are performed using dose optimization technique as appropriate and may include automated exposure control or mA/KV adjustment according to patient size. FINDINGS: No evidence of diverticulitis. Normal appendix. An abscess not visualized. No subcutaneous emphysema. Fluid inferior right scrotum probably a small hydrocele Mild bladder distention IMPRESSION: Fluid inferior right scrotum probably a small hydrocele No abscess/subcutaneous emphysema
--- NOTE | 2023-08-24 19:18 | ER ---
Nurse's Notes [facility] Name: Juan Campos Age: 47 yrs Sex: Male : 1975 Arrival Date: 08/24/2023 Time: 17:34 Bed 9 Private MD: Diagnosis: Perineal Irritation Presentation: 08/23 17:40 Chief complaint: Patient states: Shaving laceration to groin area. Laceration was 1 ld1 week ago, extremely painful now. Coronavirus screen: At this time, the client does not indicate any symptoms associated with coronavirus-19. Ebola Screen: No symptoms or risks identified at this time. Initial Sepsis Screen: Does the patient meet any 2 criteria? No. Patient's initial sepsis screen is negative. Does the patient have a suspected source of infection? No. Patient's initial sepsis screen is negative. Risk Assessment: Do you want to hurt yourself or someone else? Patient reports no desire to harm self or others. Onset of symptoms was August 24, 2023. 17:40 Method Of Arrival: Ambulatory ld1 17:40 Acuity: [place] 4 ld1 Triage Assessment: 17:41 General: Appears in no apparent distress. comfortable, Behavior is calm, cooperative, ld1 appropriate for age. Pain: Complains of pain in pelvis Pain does not radiate. Pain currently is 8 out of 10 on a pain scale. Quality of pain is described as throbbing. EENT: No signs and/or symptoms were reported regarding the EENT system. Neuro: Level of Consciousness is awake, alert, obeys commands, Oriented to person, place, time, situation, Appropriate for age. Cardiovascular: Capillary refill < 3 seconds Patient's skin is warm and dry. Respiratory: Airway is patent Respiratory effort is even, unlabored. GI: Abdomen is flat, non-distended. : No signs and/or symptoms were reported regarding the genitourinary system. Derm: No signs and/or symptoms reported regarding the dermatologic system. Musculoskeletal: No signs and/or symptoms reported regarding the musculoskeletal system. Historical: - Allergies: 17:41 No Known Allergies; ld1 - PMHx: 17:41 Anxiety; ld1 - PSHx: 17:41 hernia repair; ld1 - Immunization history:: Adult Immunizations up to date. - Social history:: Smoking status: Patient denies any tobacco usage or history of. Patient/guardian denies using alcohol. Screenin:21 [facility] ED Fall Risk Assessment (Adult) History of falling in the last 3 months, mb9 including since admission No falls in past 3 months (0 pts) Confusion or Disorientation No (0 pts) Intoxicated or Sedated No (0 pts) Impaired Gait No (0 pts) Mobility Assist Device Used No (0 pt) Altered Elimination No (0 pt) Score/Fall Risk Level 0 - 2 = Low Risk Oriented to surroundings, Maintained a safe environment, Educated pt \T\ family on fall prevention, incl call for assistance when getting out of bed. Abuse screen: Denies threats or abuse. Nutritional screening: No deficits noted. Tuberculosis screening: No symptoms or risk factors identified. Assessment: 19:21 Reassessment: No changes from previously documented assessment. Patient and/or family mb9 updated on plan of care and expected duration. Pain level reassessed. Patient is alert, oriented x 3, equal unlabored respirations, skin warm/dry/pink. Vital Signs: 17:40 Pulse 77; Resp 18; Temp 97.6(TE); Pulse Ox 100% on R/A; Weight 86.18 kg; Height 5 ft. 9 ld1 in. ; Pain 0/10; 17:40 BP 132 / 87; ld1 17:40 Body Mass Index 28.06 (86.18 kg, 175.26 cm) ld1 17:40 Pain Scale: Adult ld1 ED Course: 17:38 Patient arrived in ED. mg5 17:41 Triage completed. ld1 17:41 Arm band placed on right wrist. ld1 17:45 Gama Silva MD is Attending Physician. ec2 17:55 Placed in gown. Bed in low position. Call light in reach. Side rails up X 1. Client mb9 placed on continuous cardiac and pulse oximetry monitoring. NIBP monitoring applied. 18:02 Emely Fowler, RN is Primary Nurse. kd3 18:43 CT Pelvis wo Cont In Process Unspecified. EDMS 19:22 No provider procedures requiring assistance completed. Patient did not have IV access mb9 during this emergency room visit. Administered Medications: 18:54 Drug: Ketorolac IM 30 mg IM once Route: IM; Site: right gluteus; kd3 Medication: 19:22 VIS not applicable for this client. mb9 Outcome: 19:18 Discharge ordered by . ec2 19:22 Discharged to home ambulatory, mb9 19:22 Condition: stable 19:22 Discharge instructions given to patient, Instructed on discharge instructions, follow up and referral plans. Demonstrated understanding of instructions, follow-up care, 19:25 Patient left the ED. mb9 Signatures: Dispatcher [employer] EDAdelaida Quiroz RN RN ld1 Emely Fowler RN RN kd3 Radha Shields RN RN mb9 Tonya Larose 5 Gama Silva MD MD ec2
--- NOTE | 2023-08-24 19:18 | EDPHYS ---
Physician Documentation [facility] Name: Juan Campos Age: 47 yrs Sex: Male : 1975 Arrival Date: 08/24/2023 Time: 17:34 Bed 9 Private MD: ED Physician Gama Silva HPI: 08/23 18:15 This 47 yrs old Male presents to ER via Ambulatory with complaints of Shaving ec2 Lac. 18:15 Patient arrives today for an injury to the groin region. Was shaving with a razor blade ec2 and subsequently nicked his perineum. Patient reports he is in persistent pain. No fevers or chills, no nausea or vomiting, no discharge in that area.. Historical: - Allergies: 17:41 No Known Allergies; ld1 - PMHx: 17:41 Anxiety; ld1 - PSHx: 17:41 hernia repair; ld1 - Immunization history:: Adult Immunizations up to date. - Social history:: Smoking status: Patient denies any tobacco usage or history of. Patient/guardian denies using alcohol. ROS: 18:15 Constitutional: as per hpi ec2 Exam: 18:15 Constitutional: GEN: NAD Head: atraumatic Eyes: EOMI Ears: External ears are ec2 normal. CV: regular rate LUNGS: no respiratory distress ABD: non-distended SKIN: Perineum without significant erythema or warmth or discharge appreciated, no fluctuance appreciated, TTP generally however no evidence of infection. MSK: no evidence of trauma NEURO: moves all extremities equally Vital Signs: 17:40 Pulse 77; Resp 18; Temp 97.6(TE); Pulse Ox 100% on R/A; Weight 86.18 kg; Height 5 ft. 9 ld1 in. ; Pain 0/10; 17:40 BP 132 / 87; ld1 17:40 Body Mass Index 28.06 (86.18 kg, 175.26 cm) ld1 17:40 Pain Scale: Adult ld1 MDM: 18:06 Patient medically screened. ec2 18:15 Data reviewed: vital signs. ED course: Patient arrives today for evaluation of a skin ec2 injury. Examination remarkable for well-appearing nontoxic dividual who is otherwise in no acute distress. Will obtain CT pelvis to evaluate for perineal injury. Suspect likely skin irritation from the patient's shaving. Doubt abscess, doubt Crissy's gangrene given patient's general appearance. Injury also happened 1 week ago.. 19:18 ED course: CT imaging shows no acute process, will discharge home, instructed on ec2 general skin care. . 08/23 18:14 Order name: CT Pelvis wo Cont; Complete Time: 19:17 ec2 Administered Medications: 18:54 Drug: Ketorolac IM 30 mg IM once Route: IM; Site: right gluteus; kd3 Disposition Summary: 08/24/23 19:18 Discharge Ordered Notes: Location: Home ec2 Problem: an ongoing problem ec2 Symptoms: are unchanged ec2 Condition: Stable ec2 Diagnosis - Perineal Irritation ec2 Followup: ec2 - With: Private Physician - When: - Reason: Re-evaluation by your physician Discharge Instructions: - Discharge Summary Sheet ec2 - Skin Tear, [id number] ec2 Forms: - Medication Reconciliation Form ec2 - Thank You Letter ec2 - Antibiotic Education ec2 - Prescription Opioid Use ec2 - Patient Portal Instructions ec2 - Leadership Thank You Letter ec2 Signatures: Dispatcher [employer] EDAdelaida Quiroz RN RN ld1 Emely Fowler RN RN kd3 Gama Silva MD MD ec2
[2023-08-24 19:58] VITALS: BP 132/87; TEMP 97.6; O2SAT 100
== END ==
LOC: ER 17:34
DX: R10.2 Pelvic and perineal pain (principal)
CPT/HCPCS: 72192

== ENCOUNTER → 2023-08-30 | Emergency (ER) | payer OTHER ==
[2023-08-30 03:45] LABS: Absolute Eosinophils 0.4 K/uL (0-0.5); Absolute Lymphocytes (CBC) 3.3 K/uL (0.7-4.9); Absolute Monocytes 0.4 K/uL (0.1-1.3); Basophils % 0.5 % (0-1.3); Eosinophils % 5.3 % (0-4.4); Hematocrit 41.4 % (39.6-49.0); Hemoglobin 14.5 g/dL (13.6-17.9); Lymphocytes % 40.5 % (15.3-44.8); MCH 30.5 pg (27.0-35.0); MCV 87.3 fL (80-100); MPV 8.7 fL (7.6-11.3); Monocytes % 5.2 % (3.3-12.3); Neutrophils % 48.5 % (41.7-73.7); Nucleated Red Blood Cells % 0.2 % (0-0); Platelets 144 thou/uL (152-406); RBC Red Blood Cell Count 4.74 M/uL (4.33-5.43); Red Cell Distribution Width 13.5 % (12.1-15.2)
[2023-08-30 03:47] LABS: PT Prothrombin Time 11.4 SECONDS (9.5-12.5); PTT, Activated Partial Thromb 31.7 SECONDS (24.3-36.9); Protime INR 1.04
[2023-08-30 04:07] LABS: ALT/SGPT 18 U/L (16-61); AST/SGOT 17 U/L (15-37); Albumin 3.7 g/dL (3.4-5.0); Albumin/Globulin Ratio 1.1 (1.1-1.8); Alkaline Phosphatase 66 U/L (45-117); Anion Gap 8.6 mEq/L (5.0-15.0); BUN Blood Urea Nitrogen 16 mg/dL (7-18); Bicarbonate 27 mEq/L (21-32); Bilirubin Direct 0.1 mg/dL (0-0.2); Bilirubin Indirect, Calculated 0.3 mg/dL (0.2-0.8); Bilirubin Total 0.4 mg/dL (0.2-1.0); Globulin 3.5 g/dL (2.3-3.5); Glomerular Filtration Rate 76 ml/min (=/>90); Glucose Level 106 mg/dL (74-106); Potassium 3.6 mEq/L (3.5-5.1); Protein, Total 7.2 g/dL (6.4-8.2); Sodium Level 139 mEq/L (136-145)
--- NOTE | 2023-08-30 04:42 | ER ---
Nurse's Notes [facility] Name: Juan Campos Age: 47 yrs Sex: Male : 1975 Arrival Date: 08/30/2023 Time: 03:11 Bed 2 Private MD: Diagnosis: Paranoia Presentation: 08/29 03:18 Initial Sepsis Screen: Does the patient meet any 2 criteria? No. Patient's initial bm8 sepsis screen is negative. Does the patient have a suspected source of infection? No. Patient's initial sepsis screen is negative. Risk Assessment: Do you want to hurt yourself or someone else? Patient reports no desire to harm self or others. Onset of symptoms was 2018. 03:18 Acuity: [place] 3 bm8 03:21 Chief complaint: Patient states: states that he thinks he is getting a warning from bm8 himself and he keeps hearing the bible verse luis m 3:16. Coronavirus screen: Vaccine status: Patient reports receiving the 2nd dose of the covid vaccine. Coronavirus screen: Client denies travel out of the [place] in the last 14 days. Ebola Screen: Patient negative for fever greater than or equal to 101.5 degrees Fahrenheit, and additional compatible Ebola Virus Disease symptoms Patient denies exposure to infectious person. Patient denies travel to an Ebola-affected area in the 21 days before illness onset. 03:21 Method Of Arrival: EMS: [facility] bm8 Triage Assessment: 03:24 General: Appears in no apparent distress. comfortable, well groomed, well developed, bm8 well nourished, Behavior is calm, cooperative. Pain: Denies pain. EENT: No deficits noted. No signs and/or symptoms were reported regarding the EENT system. Neuro: Rodriguez Agitation-Sedation Scale (RASS): 0 - Alert and Calm Level of Consciousness is awake, alert, obeys commands, Oriented to person, place, time, situation, Appropriate for age Bank Examiner are equal bilaterally Moves all extremities. Full function Gait is steady, Speech is normal, Facial symmetry appears normal, Pupils are PERRLA, Intact Reports pt reports a repetitive self voice for over five years, denies voice is encouraging self harm or other harm. states it feels like a warning because it just keeps repeating Luis M 3:16. pt admits that it is his own voice, not an unknown voice.. Cardiovascular: No deficits noted. Denies chest pain, lightheadedness, nausea, shortness of breath, Heart tones S1 S2 Capillary refill < 3 seconds Patient's skin is warm and dry. Pulses are all present. Rhythm is regular. Respiratory: No deficits noted. Airway is patent Respiratory effort is even, unlabored, Respiratory pattern is regular, Breath sounds are clear bilaterally. GI: No signs and/or symptoms were reported involving the gastrointestinal system. : No signs and/or symptoms were reported regarding the genitourinary system. Derm: No signs and/or symptoms reported regarding the dermatologic system. Musculoskeletal: No signs and/or symptoms reported regarding the musculoskeletal system. Historical: - Allergies: 03:24 No Known Allergies; bm8 - PMHx: 03:24 Bipolar disorder; bm8 03:24 Anxiety; bm8 - PSHx: 03:24 hernia repair; bm8 - Immunization history:: Adult Immunizations up to date. - Social history:: Smoking status: Patient denies any tobacco usage or history of. Patient/guardian denies using alcohol, street drugs, IV drugs. Screenin:31 [facility] ED Fall Risk Assessment (Adult) History of falling in the last 3 months, bm8 including since admission No falls in past 3 months (0 pts) Confusion or Disorientation No (0 pts) Intoxicated or Sedated No (0 pts) Impaired Gait No (0 pts) Mobility Assist Device Used No (0 pt) Altered Elimination No (0 pt) Score/Fall Risk Level 0 - 2 = Low Risk Oriented to surroundings, Maintained a safe environment, Educated pt \\T\\ family on fall prevention, incl call for assistance when getting out of bed. Abuse screen: Denies threats or abuse. Nutritional screening: No deficits noted. Tuberculosis screening: No symptoms or risk factors identified. Assessment: 03:31 Reassessment: see triage note. bm8 05:08 Reassessment: Patient appears in no apparent distress at this time. No changes from bm8 previously documented assessment. Patient and/or family updated on plan of care and expected duration. Pain level reassessed. Patient is alert, oriented x 3, equal unlabored respirations, skin warm/dry/pink. Patient denies pain at this time. Reassessment: [facility] contacted for psych eval. Neuro: Rodriguez Agitation-Sedation Scale (RASS): 0 - Alert and Calm Level of Consciousness is awake, alert, obeys commands, Oriented to person, place, time, situation, Bank Examiner are equal bilaterally Moves all extremities. Full function Gait is steady, Speech is normal. 06:07 Reassessment: Patient appears in no apparent distress at this time. No changes from [facility] previously documented assessment. Patient and/or family updated on plan of care and expected duration. Pain level reassessed. Patient is alert, oriented x 3, equal unlabored respirations, skin warm/dry/pink. Psych: 03:34 [place] Suicide Severity Screening: In the past month, have you wished you were bm8 or wished you could go to sleep and not wake up? Patient responds "No." "In the past month, have you actually had any thoughts of killing yourself?" Patient responds "no." "In your lifetime, have you ever done anything, started to do anything, or prepared to do anything to end your life?" Patient responds "no.". Subjective: Patient's mood is talkitive Delusions are mu-ism, Hallucinations are auditory, pt reports hearing his own voice over and over NOT another voice Having thoughts of pt denies SI/HI. Objective: Patient is cooperative, Speech is normal, Affect is appropriate. Interventions: Patient placed in hospital gown. Safety Checks: Door is open. Pt denies substance abuse. 05:10 Safety Checks: Door is open. 8 06:48 Commitment: no commitment needed, pt educated on out-patient psychiatry. 8 Vital Signs: 03:18 BP 140 / 90; Pulse 76; Resp 17; Temp 97.8; Pulse Ox 100% on R/A; Weight 86.18 kg; bm8 Height 5 ft. 9 in. ; Pain 0/10; 05:08 BP 121 / 84; Pulse 74; Resp 17; Temp 97.8; Pulse Ox 99% ; Pain 0/10; bm8 06:07 BP 124 / 90; Pulse 74; Resp 18; Temp 97.8; Pulse Ox 99% ; Pain 0/10; bm8 03:18 Body Mass Index 28.06 (86.18 kg, 175.26 cm) 8 03:18 Pain Scale: Adult bm8 05:08 Pain Scale: Adult bm8 06:07 Pain Scale: Adult bm8 Brennon Coma Score: 03:31 Eye Response: spontaneous(4). Motor Response: obeys commands(6). Verbal Response: bm8 oriented(5). Total: 15. ED Course: 03:18 Patient arrived in ED. bm8 03:18 Gama Silva MD is Attending Physician. ec2 03:20 Cheko Burkett, RN is Primary Nurse. bm8 03:24 Triage completed. bm8 03:24 Arm band placed on right wrist. Arm band placed on right wrist. bm8 03:31 Patient has correct armband on for positive identification. Placed in gown. Bed in low bm8 position. Call light in reach. Side rails up X 1. steel erecting pusher on. Pulse ox on. NIBP on. Door closed. Noise minimized. Visitors limited. Warm blanket given. Verbal reassurance given. 03:31 No provider procedures requiring assistance completed. Inserted saline lock: 20 gauge bm8 in left antecubital area, using aseptic technique. Patient maintains SpO2 saturation greater than 95% on room air. 03:33 Salicylate Sent. bm8 03:33 Ptt, Activated Sent. bm8 03:33 PT-INR Sent. bm8 03:33 Hepatic Function Sent. bm8 03:33 ETOH Level Sent. bm8 03:33 CBC with Diff Sent. bm8 03:33 Basic Metabolic Panel Sent. bm8 03:33 Acetaminophen Sent. bm8 03:36 Initial lab(s) drawn, by nv, sent to lab. EKG done, by ED staff, reviewed by Gama Silva MD. 05:18 initiated consult with [facility] spoke with jessie. vk 06:02 [facility] called asked to speak to patient for eval. vk 06:41 faxed documents to [facility]. vk 06:49 Provided Education on: pt educated on out patient psych . bm8 06:50 IV discontinued, intact, bleeding controlled, No redness/swelling at site. Pressure bm8 dressing applied. Administered Medications: No medications were administered Medication: 03:31 VIS not applicable for this client. bm8 Outcome: 04:41 ER care complete, transfer ordered by . ec2 06:37 Discharge ordered by . ec2 06:50 Discharged to home ambulatory, bm8 06:50 Condition: stable 06:50 Discharge instructions given to patient, Instructed on discharge instructions, follow up and referral plans. Demonstrated understanding of instructions, follow-up care, 06:51 Patient left the ED. bm8 Signatures: Gama Silva MD MD ec2 Marley Ny RN RN 8 Jenny Childers Brad, RN RN bm8 Corrections: (The following items were deleted from the chart) 05:26 05:18 initiated consult with [facility] rianna blanca
--- NOTE | 2023-08-30 04:42 | EDPHYS ---
Physician Documentation [facility] Name: Juan Campos Age: 47 yrs Sex: Male : 1975 Arrival Date: 08/30/2023 Time: 03:11 Bed 2 Private MD: ED Physician Gama Silva HPI: 08/29 03:24 This 47 yrs old Male presents to ER via EMS with complaints of Anxiety. ec2 03:24 Patient arrives today for evaluation of delusions. Patient is reportedly hearing ec2 voices, he keeps hearing [address]. Denies any thoughts of harm himself or harming others. Reports history of bipolar disease. Not on medications. . Historical: - Allergies: 03:24 No Known Allergies; bm8 - PMHx: 03:24 Bipolar disorder; bm8 03:24 Anxiety; bm8 - PSHx: 03:24 hernia repair; bm8 - Immunization history:: Adult Immunizations up to date. - Social history:: Smoking status: Patient denies any tobacco usage or history of. Patient/guardian denies using alcohol, street drugs, IV drugs. ROS: 03:24 Constitutional: as per hpi ec2 Exam: 03:24 Constitutional: GEN: NAD Head: atraumatic Eyes: EOMI Ears: External ears are ec2 normal. CV: regular rate LUNGS: no respiratory distress ABD: non-distended SKIN: no evidence of rashes MSK: no evidence of trauma NEURO: moves all extremities equally. Psych: Denies SI or HI, cooperative, calm. Endorses hearing voices. Vital Signs: 03:18 BP 140 / 90; Pulse 76; Resp 17; Temp 97.8; Pulse Ox 100% on R/A; Weight 86.18 kg; bm8 Height 5 ft. 9 in. ; Pain 0/10; 05:08 BP 121 / 84; Pulse 74; Resp 17; Temp 97.8; Pulse Ox 99% ; Pain 0/10; bm8 06:07 BP 124 / 90; Pulse 74; Resp 18; Temp 97.8; Pulse Ox 99% ; Pain 0/10; bm8 03:18 Body Mass Index 28.06 (86.18 kg, 175.26 cm) bm8 03:18 Pain Scale: Adult bm8 05:08 Pain Scale: Adult bm8 06:07 Pain Scale: Adult bm8 Normangee Coma Score: 03:31 Eye Response: spontaneous(4). Motor Response: obeys commands(6). Verbal Response: bm8 oriented(5). Total: 15. MDM: 03:18 Patient medically screened. ec2 03:24 Data reviewed: vital signs. ED course: Patient arrives today for evaluation of hearing ec2 voices. Examination remarkable for cooperative individual who does not seem internally preoccupied wants questions appropriately with no SI or HI. Will obtain a psychiatric evaluation.. 03:37 ED course: EKG independently reviewed and interpreted by me, shows normal sinus rhythm, ec2 rate of 69, no acute ST segment elevations, intervals nonconcerning.. 04:27 ED course: Tylenol level undetectable, reassuring metabolic profile, reassuring CBC, ec2 ethanol level undetectable, LFTs unremarkable. Coagulation profile remarkable. . 04:40 ED course: Salicylate level undetectable. Patient appropriate for psychiatric ec2 evaluation.. 06:38 ED course: Tamiko Edwards evaluated the patient, recommended outpatient management which I ec2 feel is reasonable given the patient has no active thoughts of harm himself or harm anyone else. I will discharge patient and have him follow-up outpatient expectantly with psychiatry.. 08/29 03:19 Order name: Acetaminophen; Complete Time: 04:27 ec2 08/29 03:19 Order name: Basic Metabolic Panel; Complete Time: 04:27 ec2 08/29 03:19 Order name: CBC with Diff; Complete Time: 04:27 ec2 08/29 03:19 Order name: ETOH Level; Complete Time: 04:27 ec2 08/29 03:19 Order name: Hepatic Function; Complete Time: 04:27 ec2 08/29 03:19 Order name: PT-INR; Complete Time: 04:27 ec2 08/29 03:19 Order name: Ptt, Activated; Complete Time: 04:27 ec2 08/29 03:19 Order name: Salicylate; Complete Time: 04:40 ec2 08/29 03:19 Order name: Urine Drug Screen; Complete Time: 05:30 ec2 08/29 03:19 Order name: EKG; Complete Time: 03:20 ec2 08/29 03:19 Order name: EKG - Nurse/Tech; Complete Time: 03:33 ec2 08/29 03:19 Order name: IV Saline Lock; Complete Time: 03: ec2 08/29 03:19 Order name: Labs collected and sent; Complete Time: : ec2 08/29 03:19 Order name: Suicide Screening ([place]); Complete Time: : ec2 Administered Medications: No medications were administered Disposition Summary: 08/30/23 06:37 Discharge Ordered Condition: Stable(08/30/23 06:37) ec2 Diagnosis - Paranoia ec2 Followup: ec2 - With: Private Physician - When: - Reason: Re-evaluation by your physician Discharge Instructions: - Discharge Summary Sheet ec2 Forms: - Medication Reconciliation Form ec2 - Thank You Letter ec2 - Antibiotic Education ec2 - Prescription Opioid Use ec2 - Patient Portal Instructions ec2 - Leadership Thank You Letter ec2 Signatures: Dispatcher [employer] Gama Aguilar MD MD ec2 Cheko Burkett RN RN bm8 Corrections: (The following items were deleted from the chart) 06:37 04:41 transferring doc ec2 ec2 06:37 04:41 Psych Facility ec2 ec2 06:37 04:41 Higher level of care ec2 ec2 06:37 04:41 Stable ec2 ec2 06:37 04:41 new ec2 ec2 06:37 04:41 are unchanged ec2 ec2 06:37 04:41 Paranoia ec2 ec2
[2023-08-30 05:30] LABS: Barbiturates NEGATIVE (NEGATIVE); Benzodiazepines NEGATIVE (NEGATIVE); Cocaine NEGATIVE (NEGATIVE); METHAMPHETAM NEGATIVE (NEGATIVE); Methadone NEGATIVE (NEGATIVE); Opiates NEGATIVE (NEGATIVE); Phencyclidine NEGATIVE (NEGATIVE); THC Cannibis NEGATIVE (NEGATIVE)
[2023-08-30 07:17] VITALS: BP 124/90; TEMP 97.8; O2SAT 99
--- NOTE | 2023-08-30 17:02 | EKG ---
Test Date: 2023-08-30 Test Time: 02:32:17 Iuss Analyst: DARIN MEASUREMENT RESULTS: Intervals: Rate: 69 KS: 144 QRSD: 98 QT: 388 QTc: 415 [place]: P: 50 KS: 144 QRS: 43 T: 24 INTERPRETIVE STATEMENTS: Normal sinus rhythm Normal ECG Compared to ECG 02/06/2023 22:14:31 No significant changes Electronically Signed On 08-30-23 16:59:57 CDT by Mickey Doan
== END ==
LOC: ER 03:11
DX: F22 Delusional disorders (principal)
CPT/HCPCS: 36415; 80048; 80076; 80143; 80179; 80307; 82077; 85025; 85610; 85730; 93005

== ENCOUNTER 2024-02-29 09:00 | Emergency (ER) | payer OTHER, SELFPAY ==
[2024-02-29] MEDS ORDERED: ONDANSETRON 4 MG/2 ML VIAL ONE (09:29)
[2024-02-29] MEDS ORDERED: NA CHLORIDE 0.9% 1,000 ML ONE (09:30)
[2024-02-29] MEDS ORDERED: KETOROLAC 30 MG/ML INJ ONE (09:30)
--- NOTE | 2024-02-29 09:41 | RAD REPORT ---
EXAMINATION: CT ABDOMEN AND PELVIS WITHOUT CONTRAST CLINICAL INDICATION: Abdominal pain TECHNIQUE: CT abdomen and pelvis was performed, as per department protocol. IV contrast and oral was not administered.Axial, sagittal and coronal reconstructions were obtained. One or more of the following dose reduction techniques were used: Automated exposure control, adjustment of the mA and/o r kV according to the patient size, and/or iterative reconstruction. Unless otherwise specified, incidental findings do not require dedicated imaging follow-up. [id number]. COMPARISON: July 2023 FINDINGS: The lack of intravenous and contrast limits the sensitivity of this exam for evaluation of solid visc eral organs, vascular structures, and bowel. 2.4 cm hepatic cyst without significant change. Additional tiny hepatic cyst. 1.8 cm splenic cyst slightly enlarged.. Pancreas, adrenals and kidneys appear grossly normal No evidence of diverticulitis Normal appendix. IMPRESSION: No acute abnormality displayed
[2024-02-29 10:02] LABS: Absolute Eosinophils 0.3 K/uL (0-0.5); Absolute Lymphocytes (CBC) 2.7 K/uL (0.7-4.9); Absolute Monocytes 0.3 K/uL (0.1-1.3); Absolute Neutrophil 2.9 K/uL (1.8-8.0); Basophils % 0.1 % (0-1.3); Eosinophils % 5.5 % (0-4.4); Hematocrit 41.9 % (39.6-49.0); Hemoglobin 14.6 g/dL (13.6-17.9); Lymphocytes % 42.5 % (15.3-44.8); MCH 30.3 pg (27.0-35.0); MCHC 34.9 g/dL (32.0-36.0); MCV 86.8 fL (80-100); MPV 8.5 fL (7.6-11.3); Monocytes % 5.4 % (3.3-12.3); Neutrophils % 46.5 % (41.7-73.7); Nucleated Red Blood Cells % 0.1 % (0-0); Platelets 141 thou/uL (152-406); RBC Red Blood Cell Count 4.82 M/uL (4.33-5.43); Red Cell Distribution Width 13.5 % (12.1-15.2)
[2024-02-29 10:16] LABS: Albumin 3.5 g/dL (3.4-5.0); Anion Gap 6.7 mEq/L (5.0-15.0); Bilirubin Total 0.6 mg/dL (0.2-1.0); Globulin 3.4 g/dL (2.3-3.5); Potassium 3.7 mEq/L (3.5-5.1); Protein, Total 6.9 g/dL (6.4-8.2)
[2024-02-29 10:40] LABS: Specific Gravity 1.014 (1.005-1.030); Urine Bilirubin NEGATIVE (Negative); Urine Blood Negative (Negative); Urine Clarity Clear (Clear); Urine Color Light-Yellow (Yellow); Urine Glucose NEGATIVE (Negative); Urine Ketones NEGATIVE (Negative); Urine Microscopic Reflex YN NO UMIC; Urine Nitrite NEGATIVE (Negative); Urine Protein NEGATIVE (Negative); Urine Urobilinogen Normal (Normal); Urine pH 6.5 (5.0-7.0)
--- NOTE | 2024-02-29 10:47 | ER ---
Nurse's Notes [facility] Name: Juan Campos Age: 48 yrs Sex: Male : 1975 Arrival Date: 02/29/2024 Time: 09:00 Bed 20 Private MD: Diagnosis: Dysuria Presentation: 02/28 09:10 Chief complaint: Patient states: TESTICULAR PAIN RADIATING INTO PENIS AND LOWER db ABDOMINAL PAIN AND NAUSEA STARTED LAST NIGHT ALSO COMPLAINS OF FLU AND CONGESTION SYMPTOMS. Coronavirus screen: Client denies travel out of the [place] in the last 14 days. At this time, the client does not indicate any symptoms associated with coronavirus-19. Ebola Screen: Patient negative for fever greater than or equal to 101.5 degrees Fahrenheit, and additional compatible Ebola Virus Disease symptoms Patient denies exposure to infectious person. Patient denies travel to an Ebola-affected area in the 21 days before illness onset. No symptoms or risks identified at this time. Initial Sepsis Screen: Does the patient meet any 2 criteria? No. Patient's initial sepsis screen is negative. Does the patient have a suspected source of infection? No. Patient's initial sepsis screen is negative. Risk Assessment: Do you want to hurt yourself or someone else? Patient reports no desire to harm self or others. Onset of symptoms was February 29, 2024. 09:10 Method Of Arrival: Ambulatory db 09:10 Acuity: [place] 3 db Triage Assessment: 09:22 General: Appears in no apparent distress. comfortable, Behavior is calm, cooperative, db appropriate for age. Pain: Complains of pain in abdomen and pelvis. Neuro: Level of Consciousness is awake, alert, obeys commands, Oriented to person, place, time, situation. Respiratory: Airway is patent Respiratory effort is even, unlabored, Respiratory pattern is regular, symmetrical. GI: Abdomen is flat, non-distended, Reports diarrhea, nausea. Historical: - Allergies: : No Known Allergies; db - PMHx: : Anxiety; Bipolar disorder; db - PSHx: : hernia repair; db - Immunization history:: Adult Immunizations unknown. - Infectious Disease History:: Denies. - Social history:: Smoking status: Patient denies any tobacco usage or history of. Screenin:40 [facility] ED Fall Risk Assessment (Adult) History of falling in the last 3 months, db including since admission No falls in past 3 months (0 pts) Confusion or Disorientation No (0 pts) Intoxicated or Sedated No (0 pts) Impaired Gait No (0 pts) Mobility Assist Device Used No (0 pt) Altered Elimination No (0 pt) Score/Fall Risk Level 0 - 2 = Low Risk Oriented to surroundings, Maintained a safe environment. Abuse screen: Denies threats or abuse. Denies injuries from another. Nutritional screening: No deficits noted. Tuberculosis screening: No symptoms or risk factors identified. Assessment: 09:23 Reassessment: SEE TRIAGE FOR INITIAL ASSESSMENT. db 09:51 Reassessment: Patient appears in no apparent distress at this time. Patient and/or db family updated on plan of care and expected duration. Pain level reassessed. Patient is alert, oriented x 3, equal unlabored respirations, skin warm/dry/pink. General: Appears in no apparent distress. comfortable, Behavior is calm, cooperative. 10:39 Neuro: Level of Consciousness is awake, alert, obeys commands, Oriented to person, db place, time, situation. : Reports burning with urination. 10:40 Reassessment: Patient appears in no apparent distress at this time. Patient and/or db family updated on plan of care and expected duration. Pain level reassessed. Patient is alert, oriented x 3, equal unlabored respirations, skin warm/dry/pink. 10:55 Reassessment: Patient appears in no apparent distress at this time. Patient states db feeling better. Patient states symptoms have improved. Vital Signs: 09:10 BP 128 / 91; Pulse 63; Resp 18; Temp 98; Pulse Ox 100% on R/A; Weight 79.38 kg; Height db 5 ft. 8 in. ; 09:30 BP 125 / 90; Pulse 57; Resp 16; Pulse Ox 100% on R/A; db 10:30 BP 116 / 76; Pulse 65; Resp 16; Pulse Ox 100% on R/A; db 09:10 Body Mass Index 26.61 (79.38 kg, 172.72 cm) db ED Course: 09:01 Patient arrived in ED. ec2 09:01 Gama Silva MD is Attending Physician. ec2 09:18 Ayla Salguero, DRAKE is Primary Nurse. db 09:22 Triage completed. db 09:23 Arm band placed on Patient placed in an exam room. db 09:[address] via wheelchair. bp 09:33 CT Abd/Pelvis - Without Contrast In Process Unspecified. EDMS 09:45 Initial lab(s) drawn, by me, sent to lab. Inserted saline lock: 20 gauge in left db antecubital area, using aseptic technique. Blood collected. Flushed with 10 mL NS. 10:38 Patient has correct armband on for positive identification. Bed in low position. Call db light in reach. Side rails up X 1. Pulse ox on. NIBP on. Warm blanket given. 10:39 Urine collected: clean catch specimen. db 10:55 Provided Education on: DISCHARGE. db 10:55 No provider procedures requiring assistance completed. IV discontinued, intact, db bleeding controlled, No redness/swelling at site. Administered Medications: 09:45 Drug: NS 0.9% IV 1000 ml IV at 1 bolus Per protocol; 1000 mL bolus Route: IV; Rate: 1 db bolus; Site: right antecubital; 10:56 Follow up: Response: No adverse reaction; IV Status: Completed infusion; IV Intake: db 1000ml 09:45 Drug: Ondansetron IVP 4 mg IVP once; over 2 minutes Route: IVP; Site: right antecubital;db 10:57 Follow up: Response: No adverse reaction db 09:45 Drug: Ketorolac IVP 15 mg IVP once Route: IVP; Site: right antecubital; db 10:57 Follow up: Response: No adverse reaction db Medication: 10:55 VIS not applicable for this client. db Intake: 10:56 IV: 1000ml; Total: 1000ml. db Outcome: 10:46 Discharge ordered by . ec2 10:55 Discharged to home ambulatory, with family, db 10:55 Condition: stable 10:55 Discharge instructions given to patient, Instructed on discharge instructions, follow up and referral plans. Prescriptions given X 2, 10:57 Patient left the ED. db Signatures: Dispatcher [employer] Ilan Josue, RN RN Ayla Hawkins RN RN Gama Potts MD MD ec2 Corrections: (The following items were deleted from the chart) 10:39 09:51 Reassessment: Patient appears in no apparent distress at this time. Patient db and/or family updated on plan of care and expected duration. Pain level reassessed. Patient is alert, oriented x 3, equal unlabored respirations, skin warm/dry/pink. db
--- NOTE | 2024-02-29 10:47 | EDPHYS ---
Physician Documentation [facility] Name: Juan Campos Age: 48 yrs Sex: Male : 1975 Arrival Date: 02/29/2024 Time: 09:00 Bed 20 Private MD: ED Physician Gama Silva HPI: 02/28 09:20 This 48 yrs old Male presents to ER via Unassigned with complaints of Urinary ec2 Problem, Abdominal Pain, Nausea/Vomiting. 09:20 Patient arrives today for evaluation of abdominal pain along with dysuria and penile ec2 discomfort. Reports no penile discharge. Patient reports no irritation or redness to the groin region. Patient reports some nausea. No vomiting. Patient reports general abdominal pain. History of hernia surgery otherwise no other significant abdominal surgeries. Historical: - Allergies: 09: No Known Allergies; db - PMHx: 09: Anxiety; Bipolar disorder; db - PSHx: 09:22 hernia repair; db - Immunization history:: Adult Immunizations unknown. - Infectious Disease History:: Denies. - Social history:: Smoking status: Patient denies any tobacco usage or history of. ROS: 09:20 Constitutional: as per hpi ec2 Exam: 09:20 Constitutional: GEN: NAD Head: atraumatic Eyes: EOMI Ears: External ears are ec2 normal. CV: regular rate LUNGS: no respiratory distress ABD: non-distended, soft, generally tender, not guarding, not rigid. : Penis and scrotum without erythema or crepitus or swelling appreciated. No discharge noted SKIN: no evidence of rashes MSK: no evidence of trauma Vital Signs: 09:10 BP 128 / 91; Pulse 63; Resp 18; Temp 98; Pulse Ox 100% on R/A; Weight 79.38 kg; Height db 5 ft. 8 in. ; 09:30 BP 125 / 90; Pulse 57; Resp 16; Pulse Ox 100% on R/A; db 10:30 BP 116 / 76; Pulse 65; Resp 16; Pulse Ox 100% on R/A; db 09:10 Body Mass Index 26.61 (79.38 kg, 172.72 cm) db MDM: 09:10 Patient medically screened. ec2 09:20 Data reviewed: vital signs. ED course: Patient arrives today for evaluation of pain ec2 as well as abdominal pain. Examination remarkable for abdominal and findings as noted above. Will obtain lab work, urine studies, CT imaging. Differential includes processes such as UTI, ureteral stone, lower suspicion for epididymitis/orchitis or torsion. . 09:52 ED course: CTAP shows no acute process. ec2 10:31 ED course: CBC, metabolic profile, lipase are nonactionable. Pending urine study. ec2 Additionally patient reports dysuria. Possible UTI. Possible STI however patient reports that he is not sexually active. . 10:46 ED course: Urine is noninfectious appearing. On reassessment patient is well-appearing ec2 in no acute distress. Will discharge home have patient follow-up with primary care doctor. Return precautions given.. 02/28 09:12 Order name: CBC with Diff; Complete Time: 10:31 ec2 02/28 09:12 Order name: CMP; Complete Time: 10:31 ec2 02/28 09:12 Order name: Lipase; Complete Time: 10:31 ec2 02/28 09:12 Order name: Urinalysis w/ reflexes; Complete Time: 10:46 ec2 02/28 10:29 Order name: GC (Raymundo/Chl) Probe CX/URE (Do not order if pt is under 13, order Culture ec2 instead) 02/28 09:20 Order name: CT Abd/Pelvis - Without Contrast; Complete Time: 09:52 ec2 02/28 09:12 Order name: IV Saline Lock; Complete Time: 09:49 ec2 02/28 09:12 Order name: Labs collected and sent; Complete Time: 09:49 ec2 Administered Medications: 09:45 Drug: NS 0.9% IV 1000 ml IV at 1 bolus Per protocol; 1000 mL bolus Route: IV; Rate: 1 db bolus; Site: right antecubital; 10:56 Follow up: Response: No adverse reaction; IV Status: Completed infusion; IV Intake: db 1000ml 09:45 Drug: Ondansetron IVP 4 mg IVP once; over 2 minutes Route: IVP; Site: right antecubital;db 10:57 Follow up: Response: No adverse reaction db 09:45 Drug: Ketorolac IVP 15 mg IVP once Route: IVP; Site: right antecubital; db 10:57 Follow up: Response: No adverse reaction db Disposition Summary: 02/29/24 10:46 Discharge Ordered Notes: Location: Home ec2 Condition: Stable ec2 Diagnosis - Dysuria ec2 Followup: ec2 - With: Private Physician - When: - Reason: Re-evaluation by your physician Discharge Instructions: - Discharge Summary Sheet ec2 - Dysuria ec2 Forms: - Medication Reconciliation Form ec2 - Antibiotic Education ec2 - Prescription Opioid Use ec2 - Patient Portal Instructions ec2 - Leadership Thank You Letter ec2 Prescriptions: - Pyridium 200 mg Oral Tablet - take 1 tablet ORAL route every 8 hours for 3 days; 9 tablet; Refills: 0, ec2 Product Selection Permitted - Zofran 4 mg Oral Tablet - take 1 tablet ORAL route every 12 hours As needed; 20 tablet; Refills: 0, ec2 Product Selection Permitted Signatures: Dispatcher [employer] Ayla Malhotra RN RN Gama Potts MD MD ec2 Corrections: (The following items were deleted from the chart) 09:12 09:12 CBC+H.LAB.BRZ ordered. EDMS EDMS 09:12 09:12 COMPREHENSIVE METABOLIC PANEL+C.LAB.BRZ ordered. EDMS EDMS 09:12 09:12 LIPASE+C.LAB.BRZ ordered. EDMS EDMS 09:12 09:12 Urinalysis+U.LAB.BRZ ordered. EDMS EDMS
[2024-02-29 11:11] VITALS: TEMP 98; O2SAT 100
[2024-02-29 11:14] VITALS: BP 116/76
[2024-03-03 06:09] LABS: C.trachomatis RNA,TMA Not Detected (Not Detected); N.gonorrhoeae RNA,TMA Not Detected (Not Detected)
== END 2024-02-29 10:57 | disposition home or self-care (01) ==
LOC: ER 09:00
DX: R30.0 Dysuria (principal); R10.84 Generalized abdominal pain
CPT/HCPCS: 36415; 74176; 80053; 81003; 83690; 85025; 87490; 87590; 96361; 96374; 96375; 99285; J2405; J7030

== ENCOUNTER 2024-04-28 03:49 | Emergency (ER) | payer OTHER ==
[2024-04-28 05:10] LABS: Absolute Eosinophils 0.3 K/uL (0-0.5); Absolute Lymphocytes (CBC) 2.2 K/uL (0.7-4.9); Absolute Monocytes 0.3 K/uL (0.1-1.3); Absolute Neutrophil 3.2 K/uL (1.8-8.0); Basophils % 0.1 % (0-1.3); Eosinophils % 5.3 % (0-4.4); Hematocrit 43.2 % (39.6-49.0); Hemoglobin 14.8 g/dL (13.6-17.9); Lymphocytes % 37.2 % (15.3-44.8); MCH 30.2 pg (27.0-35.0); MCHC 34.4 g/dL (32.0-36.0); MCV 87.8 fL (80-100); MPV 8.9 fL (7.6-11.3); Neutrophils % 52.4 % (41.7-73.7); Platelets 135 thou/uL (152-406); RBC Red Blood Cell Count 4.92 M/uL (4.33-5.43); Red Cell Distribution Width 13.5 % (12.1-15.2)
[2024-04-28 05:22] LABS: Specific Gravity 1.005 (1.005-1.030); Sqamous Epithelial None Seen /HPF (None Seen); Urine Bacteria None Seen /HPF (<20); Urine Bilirubin NEGATIVE (Negative); Urine Blood Negative (Negative); Urine Clarity Clear (Clear); Urine Color Colorless (Yellow); Urine Culture Reflex Order NOT NEEDED; Urine Glucose NEGATIVE (Negative); Urine Ketones NEGATIVE (Negative); Urine Micro Reflex YN NO BILL MICROSCOPIC; Urine Nitrite NEGATIVE (Negative); Urine Protein NEGATIVE (Negative); Urine RBC <5 /HPF (None Seen); Urine Urobilinogen Normal (Normal); Urine WBC <5 /HPF (<5)
[2024-04-28 05:37] LABS: SARS-CoV-2 Antigen CONTROL BLUE LINE VIS/BG OK; SARS-CoV-2 Antigen Rapid Res Negative (Negative)
[2024-04-28 05:37] LABS: Albumin 3.9 g/dL (3.4-5.0); Albumin/Globulin Ratio 1.1 (1.1-1.8); Anion Gap 6.6 mEq/L (5.0-15.0); Bilirubin Total 0.7 mg/dL (0.2-1.0); Globulin 3.6 g/dL (2.3-3.5); Potassium 3.6 mEq/L (3.5-5.1); Protein, Total 7.5 g/dL (6.4-8.2)
[2024-04-28 05:37] LABS: Barbiturates NEGATIVE (NEGATIVE); Benzodiazepines NEGATIVE (NEGATIVE); Cocaine NEGATIVE (NEGATIVE); METHAMPHETAM NEGATIVE (NEGATIVE); Methadone NEGATIVE (NEGATIVE); Opiates NEGATIVE (NEGATIVE); Phencyclidine NEGATIVE (NEGATIVE); THC Cannibis NEGATIVE (NEGATIVE)
--- NOTE | 2024-04-28 05:41 | ER ---
Nurse's Notes [facility] Name: Juan Campos Age: 48 yrs Sex: Male : 1975 Arrival Date: 04/28/2024 Time: 03:49 Bed 14 Private MD: Diagnosis: Dry mouth, anxiety Presentation: 04/28 04:08 Chief complaint: Patient states: flank pain, dry mouth, dry skin. Coronavirus screen: kj2 Client denies travel out of the [place] in the last 14 days. Ebola Screen: No symptoms or risks identified at this time. Initial Sepsis Screen: Does the patient meet any 2 criteria? No. Patient's initial sepsis screen is negative. Does the patient have a suspected source of infection? No. Patient's initial sepsis screen is negative. Risk Assessment: Do you want to hurt yourself or someone else? Patient reports no desire to harm self or others. Onset of symptoms was April 25, 2024. 04:08 Method Of Arrival: Ambulatory [facility] 04:08 Acuity: [place] 3 kj2 Triage Assessment: 04:11 General: Appears in no apparent distress. Behavior is calm, cooperative. Pain: kj2 Complains of pain in lower flank Pain currently is 8 out of 10 on a pain scale. Neuro: Level of Consciousness is awake, alert, obeys commands, Oriented to person, place, time, situation. Cardiovascular: Patient's skin is warm and dry. Respiratory: Airway is patent Respiratory effort is unlabored. GI: No signs and/or symptoms were reported involving the gastrointestinal system. : No signs and/or symptoms were reported regarding the genitourinary system. Historical: - Allergies: 04:11 No Known Allergies; kj2 - PMHx: 04:17 Anxiety; Bipolar disorder; kj2 - PSHx: 04:17 hernia repair; kj2 - Immunization history:: Adult Immunizations unknown. - Infectious Disease History:: Denies. - Social history:: Smoking status: Patient denies any tobacco usage or history of. Screenin:15 [facility] ED Fall Risk Assessment (Adult) History of falling in the last 3 months, kj2 including since admission No falls in past 3 months (0 pts) Confusion or Disorientation No (0 pts) Intoxicated or Sedated No (0 pts) Impaired Gait No (0 pts) Mobility Assist Device Used No (0 pt) Altered Elimination No (0 pt) Score/Fall Risk Level 0 - 2 = Low Risk Maintained a safe environment, Hourly rounding (assess needs \T\ fall precautionary measures) done. Abuse screen: Denies threats or abuse. Denies injuries from another. Nutritional screening: No deficits noted. Tuberculosis screening: No symptoms or risk factors identified. Assessment: 04:14 General: see triage assessment. kj2 05:04 Reassessment: Patient appears in no apparent distress at this time. Patient and/or kj2 family updated on plan of care and expected duration. Pain level reassessed. Patient is alert, oriented x 3, equal unlabored respirations, skin warm/dry/pink. 05:44 Reassessment: Patient appears in no apparent distress at this time. Patient and/or kj2 family updated on plan of care and expected duration. Pain level reassessed. Patient is alert, oriented x 3, equal unlabored respirations, skin warm/dry/pink. Vital Signs: 04:08 BP 121 / 84; Pulse 64; Resp 18; Temp 97.8; Pulse Ox 100% on R/A; Weight 90.72 kg; kj2 Height 5 ft. 9 in. ; Pain 8/10; 04:59 BP 110 / 83; Pulse 62; Resp 18; Pulse Ox 100% on R/A; kj2 05:44 BP 111 / 81; Pulse 64; Resp 20; Temp 97.9; Pulse Ox 100% on R/A; kj2 04:08 Body Mass Index 29.53 (90.72 kg, 175.26 cm) kj2 04:08 Pain Scale: Adult kj2 ED Course: 03:53 Patient arrived in ED. gm2 03:55 Alexandr Garcia MD is Attending Physician. sp3 04:08 Una Kenny, DRAKE is Primary Nurse. kj2 04:11 Triage completed. kj2 04:16 Patient has correct armband on for positive identification. Bed in low position. Call kj2 light in reach. Provided Education on: call light. 04:17 No provider procedures requiring assistance completed. kj2 04:20 Arm band placed on Patient placed in an exam room, on a stretcher. kj2 04:27 UAM Sent. kj2 04:58 UDS Sent. kj2 04:58 SARS RAPID Sent. kj2 04:58 Strep Sent. kj2 04:58 Flu Sent. kj2 04:58 CBC with Diff Sent. kj2 04:58 UAM Sent. kj2 04:59 Inserted saline lock: 20 gauge in left antecubital area, using aseptic technique. Blood kj2 collected. Flushed with 10 mL NS. 05:43 IV discontinued, intact, bleeding controlled, No redness/swelling at site. Pressure kj2 dressing applied. Administered Medications: No medications were administered Medication: 04:16 VIS not applicable for this client. kj2 Outcome: 05:40 Discharge ordered by . sp3 05:43 Discharged to home ambulatory, kj2 05:43 Condition: stable 05:43 Discharge instructions given to patient, Instructed on discharge instructions, follow up and referral plans. Demonstrated understanding of instructions, follow-up care, 05:56 Patient left the ED. kj2 Signatures: Alexandr Garcia MD MD sp3 Rosario Phillips gm2 Una Kenny, RN RN kj2
--- NOTE | 2024-04-28 05:41 | EDPHYS ---
Physician Documentation [facility] Name: Juan Campos Age: 48 yrs Sex: Male : 1975 Arrival Date: 04/28/2024 Time: 03:49 Bed 14 Private MD: ED Physician Alexandr Garcia HPI: 04/28 04:28 This 48 yrs old Male presents to ER via Ambulatory with complaints of Flank Pain, Dry sp3 mouth, Dry lips. 04:28 48-year-old male with history of anxiety, bipolar disease with multiple visits to the 3 ED and well-known to the emergency department now presents with vague symptoms of dry mouth, dry lips and "being dehydrated" with mild bilateral flank pain. He denies nausea, vomiting, diarrhea, headache, fever, intra-abdominal pain, rash, bleeding, chest pain, shortness of breath or any other signs or symptoms on ROS at this time. He denies drug or alcohol use.. Historical: - Allergies: 04:11 No Known Allergies; kj2 - PMHx: 04:17 Anxiety; Bipolar disorder; kj2 - PSHx: 04:17 hernia repair; kj2 - Immunization history:: Adult Immunizations unknown. - Infectious Disease History:: Denies. - Social history:: Smoking status: Patient denies any tobacco usage or history of. ROS: 04:28 Constitutional: Negative for fever, chills, and weight loss, Eyes: Negative for injury, sp3 pain, redness, and discharge, Neck: Negative for injury, pain, and swelling, Cardiovascular: Negative for chest pain, palpitations, and edema, Respiratory: Negative for shortness of breath, cough, wheezing, and pleuritic chest pain, Back: Negative for injury and pain, MS/Extremity: Negative for injury and deformity, Skin: Negative for injury, rash, and discoloration, Neuro: Negative for headache, weakness, numbness, tingling, and seizure, Psych: Negative for depression, anxiety, suicide ideation, homicidal ideation, and hallucinations, Allergy/Immunology: Negative for hives, rash, and allergies, Endocrine: Negative for neck swelling, polydipsia, polyuria, polyphagia, and marked weight changes, 04:28 All other systems are negative, Exam: 04:29 Constitutional: This is a well developed, well nourished patient who is awake, alert, sp3 and in no acute distress. Head/Face: Normocephalic, atraumatic. Eyes: Pupils equal round and reactive to light, extra-ocular motions intact. Lids and lashes normal. Conjunctiva and sclera are non-icteric and not injected. Cornea within normal limits. Periorbital areas with no swelling, redness, or edema. ENT: Nares patent. No nasal discharge, no septal abnormalities noted. External auditory canals are clear. Oropharynx with no redness, swelling, or masses, exudates, or evidence of obstruction, uvula midline. Mucous membranes moist. Neck: Trachea midline, no thyromegaly or masses palpated, and no cervical lymphadenopathy. Supple, full range of motion without nuchal rigidity, or vertebral point tenderness. No Meningismus. Chest/axilla: Normal chest wall appearance and motion. Nontender with no deformity. No lesions are appreciated. Cardiovascular: Regular rate and rhythm with a normal S1 and S2. No gallops, murmurs, or rubs. Normal PMI, no JVD. No pulse deficits. Respiratory: Lungs have equal breath sounds bilaterally, clear to auscultation and percussion. No rales, rhonchi or wheezes noted. No increased work of breathing, no retractions or nasal flaring. Abdomen/GI: Soft, non-tender, with normal bowel sounds. No distension or tympany. No guarding or rebound. No evidence of tenderness throughout. Back: No spinal tenderness. No costovertebral tenderness. Full range of motion. Skin: Warm, dry with normal turgor. Normal color with no rashes, no lesions, and no evidence of cellulitis. MS/ Extremity: Pulses equal, no cyanosis. Neurovascular intact. Full, normal range of motion. Neuro: Awake and alert, GCS 15, oriented to person, place, time, and situation. Cranial nerves II-XII grossly intact. Motor strength 5/5 in all extremities. Sensory grossly intact. Cerebellar exam normal. Normal gait. Psych: Awake, alert, with orientation to person, place and time. Behavior, mood, and affect are within normal limits. Vital Signs: 04:08 BP 121 / 84; Pulse 64; Resp 18; Temp 97.8; Pulse Ox 100% on R/A; Weight 90.72 kg; kj2 Height 5 ft. 9 in. ; Pain 8/10; 04:59 BP 110 / 83; Pulse 62; Resp 18; Pulse Ox 100% on R/A; kj2 05:44 BP 111 / 81; Pulse 64; Resp 20; Temp 97.9; Pulse Ox 100% on R/A; kj2 04:08 Body Mass Index 29.53 (90.72 kg, 175.26 cm) kj2 04:08 Pain Scale: Adult kj2 MDM: 03:56 Medical Screening Exam initiated sp3 04:29 Data reviewed: vital signs, nurses notes, old medical records, lab test result(s). ED sp3 course: 48-year-old male with vague symptoms of dehydration and dry mouth and flank pain. Will assess with UA, laboratory values and swabs. Patient also complains of mild sore throat. Differential diagnosis includes viral syndrome, dehydration, electrolyte abnormality, among others. I am not suspicious of a critical illness at this time. If workup is negative we will safely discharge patient home.. 05:40 ED course: Full workup negative and vital signs continue to be normal. Will safely sp3 discharge patient home at this time.. 04/28 04:17 Order name: UAM; Complete Time: 05:29 sp3 04/28 04:27 Order name: CBC with Diff; Complete Time: 05:21 sp3 04/28 04:27 Order name: CMP sp3 04/28 04:27 Order name: Lipase sp3 04/28 04:27 Order name: Flu; Complete Time: 05:29 sp3 04/28 04:27 Order name: Strep; Complete Time: 05:29 sp3 04/28 04:27 Order name: SARS RAPID sp3 04/28 04:30 Order name: UDS sp3 04/28 05:28 Order name: Throat Culture EDMS 04/28 04:27 Order name: IV Saline Lock; Complete Time: 04:58 sp3 04/28 04:27 Order name: Labs collected and sent; Complete Time: 04:58 sp3 Administered Medications: No medications were administered Disposition Summary: 04/28/24 05:40 Discharge Ordered Notes: Location: Home sp3 Condition: Stable sp3 Diagnosis - Dry mouth, anxiety sp3 Followup: sp3 - With: Private Physician - When: Upon discharge from the Emergency Department - Reason: Continuance of care Discharge Instructions: - Discharge Summary Sheet sp3 - Flank Pain, Adult sp3 Forms: - Medication Reconciliation Form sp3 - Antibiotic Education sp3 - Prescription Opioid Use sp3 - Patient Portal Instructions sp3 - Leadership Thank You Letter sp3 Signatures: Dispatcher [employer] EDAlexandr Verduzco MD MD sp3 Una Kenny RN RN kj2 Corrections: (The following items were deleted from the chart) 04:55 04:28 Urinalysis+U.LAB.BRZ ordered. EDMS EDMS
[2024-04-28 08:42] VITALS: O2SAT 100
[2024-04-28 08:53] VITALS: BP 111/81; TEMP 97.9
== END 2024-04-28 05:56 | disposition home or self-care (01) ==
LOC: ER 03:49
DX: R68.2 Dry mouth, unspecified (principal); F41.9 Anxiety disorder, unspecified; R10.9 Unspecified abdominal pain; Z11.52 Encounter for screening for COVID-19
CPT/HCPCS: 36415; 80053; 80307; 81001; 83690; 85025; 87070; 87081; 87804; 87811

== ENCOUNTER 2024-05-09 13:01 | Emergency (ER) | payer OTHER ==
[2024-05-09] MEDS ORDERED: LORazepam 2 MG/ML VIAL ONE (13:47)
[2024-05-09 13:56] LABS: Absolute Eosinophils 0.4 K/uL (0-0.5); Absolute Monocytes 0.4 K/uL (0.1-1.3); Absolute Neutrophil 3.8 K/uL (1.8-8.0); Basophils % 0.2 % (0-1.3); Hematocrit 41.5 % (39.6-49.0); Hemoglobin 14.2 g/dL (13.6-17.9); Lymphocytes % 39.7 % (15.3-44.8); MCH 30.4 pg (27.0-35.0); MCHC 34.2 g/dL (32.0-36.0); MCV 88.9 fL (80-100); Neutrophils % 50.1 % (41.7-73.7); Nucleated Red Blood Cells % 0.1 % (0-0); Platelets 146 thou/uL (152-406); RBC Red Blood Cell Count 4.66 M/uL (4.33-5.43); Red Cell Distribution Width 13.4 % (12.1-15.2)
[2024-05-09 13:58] LABS: Specific Gravity 1.007 (1.005-1.030); Sqamous Epithelial None Seen /HPF (None Seen); Urine Bacteria None Seen /HPF (<20); Urine Bilirubin NEGATIVE (Negative); Urine Blood Negative (Negative); Urine Clarity Clear (Clear); Urine Color Colorless (Yellow); Urine Culture Reflex Order NOT NEEDED; Urine Glucose NEGATIVE (Negative); Urine Ketones NEGATIVE (Negative); Urine Microscopic Reflex YN ORDER UMIC; Urine Mucus Slight /HPF (None Seen); Urine Nitrite NEGATIVE (Negative); Urine Protein NEGATIVE (Negative); Urine RBC None Seen /HPF (None Seen); Urine Urobilinogen Normal (Normal); Urine WBC <5 /HPF (<5); Urine pH 6.5 (5.0-7.0)
[2024-05-09 14:02] LABS: Barbiturates NEGATIVE (NEGATIVE); Benzodiazepines NEGATIVE (NEGATIVE); Cocaine NEGATIVE (NEGATIVE); METHAMPHETAM NEGATIVE (NEGATIVE); Methadone NEGATIVE (NEGATIVE); Opiates NEGATIVE (NEGATIVE); Phencyclidine NEGATIVE (NEGATIVE); THC Cannibis NEGATIVE (NEGATIVE)
--- NOTE | 2024-05-09 14:58 | RAD REPORT ---
EXAMINATION: CT ABDOMEN AND PELVIS WITH CONTRAST CLINICAL INDICATION: Abdominal pain TECHNIQUE: CT abdomen and pelvis was performed, after the administration of 100 cc Isovue-300.. Sagit macy and coronal reconstructions were obtained. One or more of the following dose reduction techniques were used: Automated exposure control, adjustment of the mA and kV according to patient si ze, and iterative reconstruction. Unless otherwise specified, incidental findings do not require dedicated imaging follow-up. [id number]. Oral contrast was not given which limits evaluation of bowel and appendix. COMPARISON: .February 2024 FINDINGS: Hepatic and splenic cyst without significant change. Pancreas, adrenals and kidneys appear grossly normal No evidence of diverticulitis Normal appendix. : IMPRESSION: No acute abnormality displayed
[2024-05-09 15:03] LABS: Anion Gap 8.6 mEq/L (5.0-15.0); Magnesium 1.9 mg/dL (1.6-2.4); Potassium 3.6 mEq/L (3.5-5.1); Thyroid Stimulating Hormone 1.09 uIU/mL (0.358-3.740)
--- NOTE | 2024-05-09 15:51 | ER ---
Nurse's Notes [facility] Name: Juan Campos Age: 48 yrs Sex: Male : 1975 Arrival Date: 05/09/2024 Time: 13:01 Bed 13 Private MD: Diagnosis: Dizziness and giddiness;Hyperventilation;Muscle weakness (generalized) Presentation: 05/09 13:16 Chief complaint: EMS states: EMS called for dizziness, pt thinks he is having a ph reaction to medication he received [facility] yesterday, states that he received an injection of an unknown medication and was px doxycycline, upon arrival to ED pt appeared anxious w/ tachypnea and complaints of numbness to hands, VSS for EMS, fluids and IV Zofran given. Coronavirus screen: Vaccine status: Patient reports receiving the 2nd dose of the covid vaccine. Ebola Screen: No symptoms or risks identified at this time. Initial Sepsis Screen: Does the patient meet any 2 criteria? No. Patient's initial sepsis screen is negative. Does the patient have a suspected source of infection? No. Patient's initial sepsis screen is negative. Risk Assessment: Do you want to hurt yourself or someone else? Patient reports no desire to harm self or others. Onset of symptoms was May 09, 2024. 13:16 Method Of Arrival: EMS: [facility] 13:16 Acuity: [place] 3 ph Triage Assessment: 13:21 General: Appears in no apparent distress. Behavior is anxious. Pain: Complains of pain ph in anterior aspect of left lateral abdomen, anterior aspect of right lateral abdomen and mouth. Neuro: Level of Consciousness is awake, alert, obeys commands, Oriented to person, place, time, situation. Neuro: Reports paresthesias in right hand, left hand and right arm. Cardiovascular: Capillary refill < 3 seconds in bilateral fingers Patient's skin is warm and dry. Respiratory: Airway is patent Respiratory pattern is tachypnea. Derm: Skin is pink, warm \T\ dry. Historical: - Allergies: 13:20 No Known Allergies; ph - PMHx: 13:20 Anxiety; Bipolar disorder; ph - PSHx: 13:20 hernia repair; ph - Immunization history:: Adult Immunizations unknown. - Infectious Disease History:: Denies. - Social history:: Smoking status: Patient denies any tobacco usage or history of. Patient/guardian denies using alcohol, street drugs. - Family history:: not pertinent. - Hospitalizations: : No recent hospitalization is reported. Screenin:22 [facility] ED Fall Risk Assessment (Adult) History of falling in the last 3 months, ph including since admission No falls in past 3 months (0 pts) Confusion or Disorientation No (0 pts) Intoxicated or Sedated No (0 pts) Impaired Gait No (0 pts) Mobility Assist Device Used No (0 pt) Altered Elimination No (0 pt) Score/Fall Risk Level 0 - 2 = Low Risk Oriented to surroundings, Maintained a safe environment, Hourly rounding (assess needs \T\ fall precautionary measures) done. Abuse screen: Denies threats or abuse. Denies injuries from another. Nutritional screening: No deficits noted. Tuberculosis screening: No symptoms or risk factors identified. Assessment: 14:07 General: SEE TRIAGE ASSESSMENT. ph 16:12 Reassessment: Patient appears in no apparent distress at this time. Patient and/or ph family updated on plan of care and expected duration. Pain level reassessed. Patient is alert, oriented x 3, equal unlabored respirations, skin warm/dry/pink. Vital Signs: 13:16 BP 128 / 103; Pulse 73; Resp 18; Temp 98(O); Pulse Ox 100% on R/A; Weight 85.28 kg; ph Height 5 ft. 10 in. ; 14:39 BP 110 / 80; Pulse 70; Resp 18; Pulse Ox 100% on R/A; ph 15:40 BP 118 / 78; Pulse 72; Resp 18; Temp 97.9; Pulse Ox 99% on R/A; ph 13:16 Body Mass Index 26.97 (85.28 kg, 177.8 cm) ED Course: 13:12 Patient arrived in ED. ph 13:12 Bhavesh Brown MD is Attending Physician. [facility] 13:16 Cindy Portillo, DRAKE is Primary Nurse. ph 13:19 Attending Physician role handed off by Bhavesh Brown MD rn 13:19 Jeferson Lund MD is Attending Physician. rn 13:20 Triage completed. ph 13:22 Arm band placed on Patient placed in an exam room, on a stretcher, on pulse oximetry. ph 13:22 Patient has correct armband on for positive identification. Bed in low position. Call ph light in reach. Side rails up X 1. Provided Education on: On use of call light and estimated time for test results. 14:05 CT Abd/Pelvis - IV Contrast Only In Process Unspecified. EDMS 14:07 Initial lab(s) drawn, by me, sent to lab. Urine collected: clean catch specimen, clear, ph EKG done, by ED staff, reviewed by Jeferson Lund MD. Maintain EMS IV. Dressing intact. Good blood return noted. Site clean \T\ dry. Gauge \T\ site: 20 LAC. Flushed with 10 mL NS. 14:39 No provider procedures requiring assistance completed. ph 14:39 Lab(s) recollected, by me, sent to lab. ph 16:13 IV discontinued, intact, bleeding controlled, No redness/swelling at site. Pressure ph dressing applied. Administered Medications: 14:06 Not Given (Received 1 liter NS per EMS): ns 0.9% 1000 ml IV at 1000 ml once; to be ph given as a bolus over 60 minutes 14:06 Drug: Ativan IVP 0.5 mg IVP once Route: IVP; Site: left antecubital; ph 14:38 Follow up: Response: No adverse reaction; Anxiety decreased ph Medication: 13:22 VIS not applicable for this client. ph Outcome: 15:51 Discharge ordered by . rn 16:13 Discharged to home ambulatory, ph 16:13 Condition: good 16:13 Discharge instructions given to patient, Instructed on discharge instructions, follow up and referral plans. Demonstrated understanding of instructions, follow-up care, 16:14 Patient left the ED. ph Signatures: Dispatcher [employer] EDKS Bhavesh Brown MD MD cha Nieto, Roman, MD MD rn Hall, Patricia, RN RN ph
--- NOTE | 2024-05-09 15:51 | EDPHYS ---
Physician Documentation [facility] Name: Juan Campos Age: 48 yrs Sex: Male : 1975 Arrival Date: 05/09/2024 Time: 13:01 Bed 13 Private MD: ED Physician Jeferson Lund HPI: 05/09 14:44 This 48 yrs old Male presents to ER via EMS with complaints of Dizziness. rn 14:44 The patient presents with dizziness, generalized weakness, lightheadedness. Onset: The rn symptoms/episode began/occurred 1 month(s) ago. Context: occurred at an unknown location. Modifying factors: The symptoms are alleviated by nothing, the symptoms are aggravated by nothing. Severity of symptoms: At their worst the symptoms were moderate in the emergency department the symptoms are unchanged. The patient has experienced similar episodes in the past. Patient reports multiple recent visits for same problems without clear diagnosis. Reports feeling lightheaded, malaise, anxious, numbness and tingling of extremities, dry mouth, abdominal pain. Reports seen here recently without clear diagnosis, seen by PCP, seen at an STD clinic. Still feels bad so came back for reevaluation.. Denies drug use. Historical: - Allergies: 13:20 No Known Allergies; ph - PMHx: 13:20 Anxiety; Bipolar disorder; ph - PSHx: 13:20 hernia repair; ph - Immunization history:: Adult Immunizations unknown. - Infectious Disease History:: Denies. - Social history:: Smoking status: Patient denies any tobacco usage or history of. Patient/guardian denies using alcohol, street drugs. - Family history:: not pertinent. - Hospitalizations: : No recent hospitalization is reported. ROS: 14:44 Constitutional: Negative for fever, chills, and weight loss, Cardiovascular: Negative rn for chest pain, palpitations, and edema, Respiratory: Negative for shortness of breath, cough, wheezing, and pleuritic chest pain, Abdomen/GI: Negative for vomiting, diarrhea, and constipation, Back: Negative for injury and pain, : Negative for injury, bleeding, discharge, and swelling, MS/Extremity: Negative for injury and deformity, Skin: Negative for injury, rash, and discoloration, Neuro: Negative for headache, and seizure, Exam: 14:44 Constitutional: This is a well developed, well nourished patient who is awake, alert, rn hyperventilating and appears anxious Head/Face: Normocephalic, atraumatic. ENT: dry MM Cardiovascular: Regular rate and rhythm . No pulse deficits. Respiratory: Hyperventilating, clear bilateral breath sounds Abdomen/GI: soft, + LLQ tenderness MS/ Extremity: Pulses equal, no cyanosis. Neuro: Awake and alert, GCS 15, oriented to person, place, time, and situation. Cranial nerves II-XII grossly intact. Motor strength 5/5 in all extremities. Sensory grossly intact. 15:54 ECG was reviewed by the Attending Physician. rn Vital Signs: 13:16 BP 128 / 103; Pulse 73; Resp 18; Temp 98(O); Pulse Ox 100% on R/A; Weight 85.28 kg; ph Height 5 ft. 10 in. ; 14:39 BP 110 / 80; Pulse 70; Resp 18; Pulse Ox 100% on R/A; ph 15:40 BP 118 / 78; Pulse 72; Resp 18; Temp 97.9; Pulse Ox 99% on R/A; ph 13:16 Body Mass Index 26.97 (85.28 kg, 177.8 cm) ph MDM: 13:13 Medical Screening Exam initiated diane 15:50 Differential diagnosis: cardiac arrhythmia, generalized weakness, hyperventilation, rn hypovolemia, idiopathic dizziness. Data reviewed: vital signs, nurses notes, lab test result(s), EKG, radiologic studies, CT scan, and as a result, I will discharge patient. Counseling: I had a detailed discussion with the patient and/or guardian regarding the historical points, exam findings, and any diagnostic results supporting the discharge/admit diagnosis, lab results, radiology results, the need for outpatient follow up, to return to the emergency department if symptoms worsen or persist or if there are any questions or concerns that arise at home. Special discussion: I discussed with the patient/guardian in detail that at this point there is no indication for admission to the hospital. It is understood, however, that if the symptoms persist or worsen the patient needs to return immediately for re-evaluation. Based on the history and exam findings, there is no indication for further emergent testing or inpatient evaluation. I discussed with the patient/guardian the need to see the primary care provider for further evaluation of the symptoms. ED course: I have personally reviewed all of the results, including but not limited to blood tests and imaging deemed necessary to safely discharge this patient at this time. All results given to and printed out for patient. I personally went over all the results with the patient and answered all questions. Patient will follow-up with PCP and or specialist as discussed. Return precautions given and understood.. 05/09 13:21 Order name: CBC with Diff; Complete Time: 15:06 rn 05/09 13:21 Order name: Basic Metabolic Panel; Complete Time: 15:06 rn 05/09 13:21 Order name: Urinalysis w/ reflexes; Complete Time: 15:06 rn 05/09 13:21 Order name: Magnesium; Complete Time: 15: rn 05/09 13:21 Order name: TSH; Complete Time: 15:06 rn 05/09 13:21 Order name: Urine Drug Screen; Complete Time: 15:06 rn 05/09 13:41 Order name: CT Abd/Pelvis - IV Contrast Only; Complete Time: 15:06 rn 05/09 13:21 Order name: IV Start; Complete Time: 15:08 rn 05/09 13:21 Order name: EKG - Nurse/Tech; Complete Time: 15:08 rn 05/09 13:21 Order name: Cardiac monitoring; Complete Time: 13:35 rn 05/09 13:21 Order name: O2 Sat Monitoring; Complete Time: 14:06 rn 05/09 13:58 Order name: Labs - recollect needed: recollect green top; Complete Time: 14:38 bd EC:54 Rate is 76 beats/min. Rhythm is regular. QRS [place] is Normal. [place] interval is normal. QRS rn interval is normal. QT interval is normal. No Q waves. T waves are Normal. No ST changes noted. Clinical impression: Normal ECG. Interpreted by me. Reviewed by me. Administered Medications: 14:06 Not Given (Received 1 liter NS per EMS): ns 0.9% 1000 ml IV at 1000 ml once; to be ph given as a bolus over 60 minutes 14:06 Drug: Ativan IVP 0.5 mg IVP once Route: IVP; Site: left antecubital; ph 14:38 Follow up: Response: No adverse reaction; Anxiety decreased ph Disposition Summary: 05/09/24 15:51 Discharge Ordered Notes: Location: Home rn Problem: new rn Symptoms: have improved rn Condition: Stable rn Diagnosis - Dizziness and giddiness rn - Hyperventilation rn - Muscle weakness (generalized) rn Followup: rn - With: Private Physician - When: As needed - Reason: Recheck today's complaints, Re-evaluation by your physician Discharge Instructions: - Discharge Summary Sheet rn - Dizziness rn - Hyperventilation rn - Weakness rn Forms: - Medication Reconciliation Form rn - 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 EDMS EDMS 13:21 13:21 BASIC METABOLIC PANEL+C.LAB.BRZ ordered. EDMS EDMS 13:21 13:21 Urinalysis+U.LAB.BRZ ordered. EDMS EDMS 13:21 13:21 MAGNESIUM+C.LAB.BRZ ordered. EDMS EDMS 13:21 13:21 THYROID STIMULAT HORMONE+C.LAB.BRZ ordered. EDMS EDMS 13:21 13:21 URINE DRUG SCREEN+UC.LAB.BRZ ordered. EDMS EDMS
[2024-05-09 21:21] VITALS: BP 118/78; TEMP 97.9; O2SAT 99
== END 2024-05-09 16:14 | disposition home or self-care (01) ==
LOC: ER 13:01
DX: R06.4 Hyperventilation (principal); M62.81 Muscle weakness (generalized)
CPT/HCPCS: 85025; 81001; 80048; 36415; 83735; 84443; 80307; 74177; 96374; 99284; Q9967

== ENCOUNTER 2024-10-02 03:38 | Emergency (ER) | payer MEDICAID ==
--- OUTSIDE RECORDS SUMMARY | 2024-10-02 03:46 | XMS REPORT | Continuity of Care Document ---
Author Name Unknown Address [address] [facility] [place] [address] [facility] [place] Address [address] 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 Name Role Phone Jhonny Mendoza Primary Care Physician Angela ALTAMIRANO L Attending Clinician Unavailable LISY CHANG Attending Clinician Unavailable DAVE MONDRAGON Attending Clinician Unavailable BIBIANA HERNANDEZ Attending Clinician Unava ilESA Limon Attending Clinician Unavail able ESA CABAN Attending Clinician Unavail Esa Limon MD Attending Clinician [phone] RAZIA ALONSO Attending Clinician Unavailable Razia Alonso MD Attending Clinician [phone] Doctor Unassigned, [place] Attending Clinician U ASHLEY Still Attending Clinician Unavailable Ashley Gayle MD Attending Clinician [phone] Lisy Chang MD Attending Clinician [phone] Gabrielle Forman RN Attending Clinician Unavailable Jluis Ferrell Attending Clinician [phone] JLUIS WHELAN Attending Clinician Unavailable Lab, Ang - Db Attending Clinician Unavailable BAKARI RED Attending Clinician Unavailable Bakari Red DO Attending Clinician [phone] LISY CHANG Admitting Clinician Unavailable RAZIA ALONSO Admitting Clinician Unavailable ASHLEY GAYLE Admitting Clinician Unavailable BAKARI RED Admitting Clinician Unavailable Payers Payer Name Policy Type Policy Number Effective Date Expirati on Date Source PHCS GENERIC [id number] 2022 00:00:00 [place] [id number] 2021 00:00:00 [facility] LEANN HAHue COPAY FOCUS 9 [id number] 2024 00:00:00 [facility] MEDICAID [id number] 2014 00:00:00 Problems Condition Name Condition Details Condition Category Status Onset Date Resolution Date Last Treatment Date Treating Clinician Comments Source Esophageal dysphagia Esophageal dysphagia Disease Active 08-11 00:00: 00 Overview: Formattin g of this note might be different from the original. Added automatic ally from request for surgery [id number] [facility] Abdominal pain, unspecifie d abdominal location Abdominal pain, unspecifie d abdominal location Disease Active 08-11 00:00: 00 Overview: Formattin g of this note might be different from the original. Added automatic ally from request for surgery [id number] [facility] Wellness examinatio n Wellness examinatio n Disease Active 07-19 00:00: 00 [facility] Need for hepatitis C screening test Need for hepatitis C screening test Disease Active 07-19 00:00: 00 [facility] Need for vaccinatio n Need for vaccinatio n Disease Active 07-19 00:00: 00 [facility] Paresthesi a (finding) Paresthesi a (finding) Active Problem 12/15/2018 [facility] Problem Active 2018-12-15 11:44:54 Memoria miguel angel Mccall Stomach ache (finding) Stomach ache (finding) Active Problem 12/15/2018 [facility] Problem Active 2018-12-15 11:44:54 Memoria miguel angel Mccall Bipolar disorder Bipolar disorder Disease Active Overview: Formattin g of this note might be different from the original. 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 [facility] Allergies, Adverse Reactions, Alerts Allergy Name Allergy Type Status Severity Reaction(s) Onset Date Inactive Date Treating Clinician Comments Source Cat Hair Std Allergen ic Ext Propensi ty to adverse reaction s Active Itching 11-19 00:00: 00 [facility] CAT HAIR STD ALLERGEN IC EXT DRUG Active ITCHING 11-19 00:00: 00 [facility] No Known Medicati on Allergie s No Known Medicati on Allergie s Active Zeeshanoria miguel angel Mccall Social History Social Habit Start Date Stop Date Quantity Comments Source Sexual orientation Negar fofana Breana - External Alcoholic beverage intake 2024-03-01 00:00:00 2024-03-01 00:00:00 Ex-drinker (finding) Maddi Toussaint - External History of Social function 2024-03-01 00:00:00 2024-03-01 00:00:00 Maddi Toussaint - External Sex 2023-11-07 10:13:53 2023-11-07 10:13:53 Male (finding) Maddi Toussaint - External Alcohol intake 2023-09-05 00:00:00 2023-09-05 00:00:00 Current non-drinker of alcohol (finding) [facility] Exposure to SARS-CoV-2 (event) 2022-09-05 00:00:00 2022-09-15 11:05:00 Not sure [facility] Tobacco use and exposure 2022-07-19 00:00:00 2022-07-19 00:00:00 Smokeless tobacco non-user [facility] Tobacco Comment 2022-07-19 00:00:00 2022-07-19 00:00:00 Second hand smoke [facility] Sex assigned at 1975 00:00:00 1975 00:00:00 Maddi Toussaint - External Smoking Status Start Date Stop Date Source Never smoked tobacco Maddi Toussaint - External Social History [facility] Medications Ordered Medication Name Filled Medication Name Start Date Stop Date Current Medication? Ordering Clinician Indication Dosage Frequency Signature (SIG) Comments Components Source nitrofurant oin monohydrate /macrocryst als 100 mg capsule 07-02 00:00: 00 Yes 1mg Andrew Vines Bromfed DM 2 mg-30 mg-10 mg/5 mL oral syrup 2024-1 2-30 00:00: 00 Yes 10mg/5 mL Andrew Vines nitrofurant oin monohydrate /macrocryst als 100 mg capsule 2023-06 016 00:00: 00 Yes 1mg Andrew Vines Ondansetron HCl 4 MG oral Tablet 03-01 00:00: 00 Yes [id number] 4mg [id number] 3D Take 1 tablet (4 mg total) by mouth every 8 hours as needed for nausea. Maddi Breana michelle Amoxicillin -Pot Clavulanate 875-125 MG oral Tablet 03-01 00:00: 00 Yes [id number] 1{tbl} Q.5D Take 1 tablet by mouth 2 times daily. Maddi michelle AMOXICILLIN 500 MG 10-05 00:00: 00 Yes Andrew Vines TAKE 1 TABLET EVERY 12 HOURS DAILY. 16 00:00: 00 10-10 00:00 :00 No 500 Andrew Vines maalox:diph enhydrAMINE :lidocaine 2 % viscous 1:1:1 (FIRST-MOUT HWASH BLM) oral suspension 15 mL 07-23 06:15: 00 07-23 06:19 :00 No 15mL 15 mL, Oral, ONCE, 1 dose, [facility] 07[facility]23[facility]23 [facility] 00[facility] 370-500 mL[facility] injection 85 mL 07-23 06:00: 00 07-23 06:00 :00 No [id number] 85mL 85 mL, Intravenou s, ONCE, 1 dose, On 07/23/23 at 0000, Routine [facility] ondansetron (ZOFRAN (PF)) injection 4 mg 07-23 04:30: 00 07-23 03:41 :00 No 4mg 4 mg, Slow IV Push, ONCE, 1 dose, On 07/22/23 at 2230, [facility] NaCl 0.9% (NS) bolus infusion 1,000 mL 07-23 04:30: 00 2024- 02-17 06:20 :00 No 1000mL at 999 mL/hr, 1,000 mL, IV Infusion, ONCE, 1 dose, On Tue07/22/23 at 2230, STAT [facility] famotidine 20 mg tablet 217 00:00: 00 Yes [id number] 20mg Take 1 tablet by mouth in the morning and 1 tablet in the evening. [facility] sucralfate 1 gram tablet 2 00:00: 00 Yes [id number] 1g Take 1 tablet by mouth before meals and at bedtime. [facility] metoclopram ruma HCl 10 mg tablet 2 00:00: 00 Yes [id number] 10mg Take 1 tablet by mouth every 6 (six) hours. [facility] METRONIDAZO LE 500 MG TABS 213 00:00: 00 Yes [facility] PANTOPRAZOL E 40MG DR 8 00:00: 00 Yes Andrew [facility]ines TAKE 1 TABLET DAILY. 11-23 00:00: 00 10-10 00:00 :00 No 750 Andrew Vines TAKE 1 TABLET DAILY. 18 00:00: 00 10-10 00:00 :00 No 750 Andrew Vines ketorolac (TORADOL) injection 30 mg 11-15 11:00: 00 11-15 09:55 :00 No 30mg 30 mg, Slow IV Push, ONCE, 1 dose, On Tue11/15/22 at 0600, Routine [facility] maalox:diph enhydrAMINE :lidocaine 2 % viscous 1:1:1 (FIRST-MOUT HWASH BLM) oral suspension 15 mL 11-15 10:00: 00 11-15 09:55 :00 No 15mL 15 mL, Oral, ONCE, 1 dose, On Tue11/15/22 at 0500, Routine [facility] DICYCLOMINE HYDROCHLORI DE 20 MG TABS 11-15 00:00: 00 Yes [facility] ONDANSETRON HYDROCHLORI DE 4 MG TABS 11-15 00:00: 00 Yes [facility] DIPHENOXYLA TE HYDROCHLORI DE/ATROPIN E SULFATE 2.5-0.025 MG TABS 11-15 00:00: 00 Yes [facility] dicyclomine 20 mg tablet 11-15 00:00: 00 Yes [id number] 20mg Take 1 tablet by mouth every 6 (six) hours as needed for Abdominal pain. [facility] ondansetron (ZOFRAN) 4 mg tablet 11-15 00:00: 00 Yes [id number] 4mg Take 1 tablet by mouth every 8 (eight) hours as needed for Nausea and Vomiting (N/V). [facility] diphenoxyla te-atropine 2.5-0.025 mg tablet 11-15 00:00: 00 Yes [id number] 1{tbl} Take 1 tablet by mouth every 6 (six) hours as needed (Diarrhea) . [facility] SODIUM SULFATE/POT ASSIUM SULFATE/MA GNESIUM SULFATE 17.5-3.13-1 .6 GM/177ML SOLN 10-27 00:00: 00 Yes [facility] sodium,pota ssium,mag sulfates 17.5-3.13-1 .6 gram 10-27 00:00: 00 10-28 04:59 :00 No 117mL Take 117 mL by mouth once now for 1 dose. [facility] TAKE 1 CAPSULE EVERY 6 HOURS NEEDED. 10-25 00:00: 00 10-10 00:00 :00 No 10 Andrew [facility]ines TAKE 1 TABLET DAILY. 10-12 00:00: 00 10-10 00:00 :00 No 1 [facility] ONDANSETRON ODT 8 MG TBDP 10-08 00:00: 00 Yes Andrew [facility]ines TAKE 1 TABLET DAILY. 10-06 00:00: 00 10-10 00:00 :00 No 1 [facility] RINSE MOUTH WITH 15ML (1 CAPFUL) FOR 30 SECONDS AM AND PM AFTER TOOTHBRUSHI NG. EXPECTORATE AFTER RINSING, DO NOT SWALLOW 10-06 00:00: 00 10-10 00:00 :00 No 12 [facility] PANTOPRAZOL E SODIUM 40 MG TBEC 5- 00:00: 00 Yes [facility] HYDROXYZINE HYDROCHLORI DE 25 MG TABS - 00:00: 00 Yes [facility] DOXYCYCLINE HYCLATE 100 MG - 00:00: 00 Yes [facility] CALCIUM CARBONATE (CALCIUM 500 ORAL) -12 11:03: 23 Yes Take by mouth. [facility] SUPREP BOWEL PREP KIT 17.5-3.13-1 .6 GM/177ML SOLN 08-10 00:00: 00 Yes [facility] sodium,pota ssium,mag sulfates 17.5-3.13-1 .6 gram - 00:00: 00 08-11 05:59 :00 No 117mL Take 117 mL by mouth once now for 1 dose. [facility] CALCIUM CARBONATE (CALCIUM 500 ORAL) 2-13 14:04: 49 Yes Take by mouth. [facility] TAKE 2 TABLETS BY MOUTH TODAY, THEN TAKE 1 TABLET DAILY FOR 4 DAYS 2021-06 00:00: 00 Yes Andrew Vines TAKE 1 TABLET BY MOUTH EVERY 12 HOURS FOR 21 DAYS 2021-06 00:00: 00 Yes [facility] iopamidol (ISOVUE 370-500 mL) injection 120 mL 2020-06 17:15: 00 04-27 16:04 :00 No [id number] 120mL 120 mL, Intravenou s, ONCE, 1 dose, On Tue04/27/21 at 1115, Routine [facility] ondansetron (ZOFRAN (PF)) injection 4 mg 2020-06 16:45: 00 04-27 15:45 :00 No 4mg 4 mg, Slow IV Push, ONCE, 1 dose, On Tue04/27/21 at 1045, Routine [facility] ondansetron 4 mg disintegrat ing tablet 2020-06 00:00: 00 Yes [id number] 4mg Take 1 tablet by mouth every 8 (eight) hours as needed for Nausea and Vomiting (N/V). [facility] dicyclomine (BENTYL) 10 mg capsule 2020-06 00:00: 00 Yes [id number] 10mg Take 1 capsule by mouth every 8 (eight) hours as needed for Abdominal pain. [facility] sucralfate 1 gram tablet 2020-06 00:00: 00 07-23 00:00 :00 No [id number] 1g Take 1 tablet by mouth before meals and at bedtime. [facility] omeprazole 20 mg capsule 2020-06 00:00: 00 05-28 05:59 :00 No [id number] 20mg Take 1 capsule by mouth daily for 30 days. [facility] nystatin 100,000 unit/mL suspension 06-30 00:00: 00 Yes [id number] 474424O Take 5 mL by mouth 4 (four) times daily. [facility] ondansetron 4 mg tablet 06-30 00:00: 00 Yes [id number] 4mg Take 1 tablet by mouth every 8 (eight) hours as needed for Nausea and Vomiting (N/V). [facility] Omeprazole 2017-06 15:33: 00 No 40 mg, PO, Daily, 0 Refill(s) Mempaula Mccall Metronidazo le 2017-06 15:33: 00 No 500 mg = 1 tab, PO, Q6H, 0 Refill(s) Mempaula Mccall Omeprazole 2017-06 15:33: 00 No 40 mg, PO, Daily, 0 Refill(s) Mempaula Mccall Dicyclomine 2017-06 15:33: 00 No 20 mg, PO, Q6H, 0 Refill(s) Mempaula Mccall ondansetron 4 mg oral tablet 2017-06 15:33: 00 No 4 mg = 1 tab, PO, Q12H, 0 Refill(s) Mempaula Mccall Famotidine 2017-06 15:33: 00 No 20 mg = 1 tab, PO, Q12H, 0 Refill(s) Mempaula Mccall Ciprofloxac in 2017-06 15:33: 00 No 500 mg, PO, Q12H, 0 Refill(s) Dilip Mccall hydrOXYzine hydrochlori de 2017-06 15:33: 00 No 25 mg, PO, Q6H, 0 Refill(s) Mempaula Mccall Dicyclomine 2017-06 15:33: 00 No 20 mg, PO, Q6H, 0 Refill(s) Mempaula Mccall Famotidine 2017-06 15:33: 00 No 20 mg = 1 tab, PO, Q12H, 0 Refill(s) Dilip Mccall Ciprofloxac in 2017-06 15:33: 00 No 500 mg, PO, Q12H, 0 Refill(s) Dilip Mccall hydrOXYzine hydrochlori de 2017-06 15:33: 00 No 25 mg, PO, Q6H, 0 Refill(s) Dilip Mccall Metronidazo le 2017-06 15:33: 00 No 500 mg = 1 tab, PO, Q6H, 0 Refill(s) Dilip Mccall omeprazole 40 mg capsule 2017-06 0 00:00: 00 04-27 00:00 :00 No [facility] hydrocortis one (ANUSOL-HC) 25 mg suppository 01-27 00:00: 00 Yes 25mg Insert 1 Suppositor y into rectum 2 (two) times daily. [facility] CALCIUM CARBONATE (CALCIUM 500 ORAL) 08-05 14:20: 36 Yes Take by mouth. [facility] Lidoderm 5 % (700 mg/patch) adhesive patch 01-22 00:00: 00 Yes 1%(700 mg/patc h) [facility] gabapentin 300 mg capsule 01-22 00:00: 00 Yes 1mg [facility] Immunizations Ordered Immunization Name Filled Immunization Name Date Status Comments Source TDAP 2022-07-19 00:00:00 Completed [facility] Influenza Virus Vaccine Quad IM, Preserv and ABX Free 6 MO-64 YRS 2022-07-19 00:00:00 Completed [facility] TDAP 2022-07-19 00:00:00 Completed [facility] Influenza Virus Vaccine Quad IM, Preserv and ABX Free 6 MO-64 YRS 2022-07-19 00:00:00 Completed [facility] TDAP 2022-07-19 00:00:00 Completed [facility] Influenza Virus Vaccine Quad IM, Preserv and ABX Free 6 MO-64 YRS 2022-07-19 00:00:00 Completed [facility] TDAP 2022-07-19 00:00:00 Completed [facility] Influenza Virus Vaccine Quad IM, Preserv and ABX Free 6 MO-64 YRS 2022-07-19 00:00:00 Completed [facility] TDAP 2022-07-19 00:00:00 Completed [facility] Influenza Virus Vaccine Quad IM, Preserv and ABX Free 6 MO-64 YRS 2022-07-19 00:00:00 Completed [facility] TDAP 2022-07-19 00:00:00 Completed [facility] Influenza Virus Vaccine Quad IM, Preserv and ABX Free 6 MO-64 YRS 2022-07-19 00:00:00 Completed [facility] TDAP 2022-07-19 00:00:00 Completed [facility] Influenza Virus Vaccine Quad IM, Preserv and ABX Free 6 MO-64 YRS 2022-07-19 00:00:00 Completed [facility] TDAP 2022-07-19 00:00:00 Completed [facility] Influenza Virus Vaccine Quad IM, Preserv and ABX Free 6 MO-64 YRS 2022-07-19 00:00:00 Completed [facility] TDAP 2022-07-19 00:00:00 Completed [facility] Influenza Virus Vaccine Quad IM, Preserv and ABX Free 6 MO-64 YRS 2022-07-19 00:00:00 Completed [facility] TDAP 2022-07-19 00:00:00 Completed [facility] Influenza Virus Vaccine Quad IM, Preserv and ABX Free 6 MO-64 YRS 2022-07-19 00:00:00 Completed [facility] Influenza, Injectable, Mdck, Preservative Free, Quadrivalent Unknown Completed Maddi Louold - External Tdap- (Boostrix, Adacel) Unknown Completed Maddi Toussaint - External TDAP Unknown Completed [facility] Influenza Virus Vaccine Quad IM, Preserv and ABX Free 6 MO-64 YRS (FLUCELVAX) Unknown Completed [facility] TDAP Unknown Completed [facility] Influenza Virus Vaccine Quad IM, Preserv and ABX Free 6 MO-64 YRS (FLUCELVAX) Unknown Completed [facility] TDAP Unknown Completed [facility] Influenza Virus Vaccine Quad IM, Preserv and ABX Free 6 MO-64 YRS (FLUCELVAX) Unknown Completed [facility] TDAP Unknown Completed [facility] Influenza Virus Vaccine Quad IM, Preserv and ABX Free 6 MO-64 YRS (FLUCELVAX) Unknown Completed [facility] TDAP Unknown Completed [facility] Influenza Virus Vaccine Quad IM, Preserv and ABX Free 6 MO-64 YRS (FLUCELVAX) Unknown Completed [facility] Vital Signs Vital Name Observation Time Observation Value Comments S ource Systolic blood pressure 2024-03-01 14:08:00 120 mm[Hg] Maddiabdirizak Louo ld - External Diastolic blood pressure 2024-03-01 14:08:00 90 mm[Hg] Maddiabdirizak Louo ld - External Heart rate 2024-03-01 14:08:00 62 /min Cristal y Breana - External Body temperature 2024-03-01 14:08:00 35.67 Carol Maddi ybold - External Respiratory rate 2024-03-01 14:08:00 15 /min Maddi Seybold - External Body height 2024-03-01 14:08:00 175.3 cm Maria Eugenia avitia ybold - External Body weight 2024-03-01 14:08:00 86.456 kg Maria Eugenia avitia Seybold - External BMI 2024-03-01 14:08:00 28.15 kg/m2 Maria Eugenia avitia Seybold - External Systolic blood pressure 2023-09-05 18:46:00 99 mm[Hg] [facility] Diastolic blood pressure 2023-09-05 18:46:00 68 mm[Hg] [facility] Heart rate 2023-09-05 18:46:00 73 /min [facility] Body height 2023-09-05 18:46:00 175.3 cm [facility] Body weight 2023-09-05 18:46:00 88.814 kg [facility] BMI 2023-09-05 18:46:00 28.91 kg/m2 [facility] Oxygen saturation in Arterial blood by Pulse oximetry 2023-09-05 18:46:00 99 /min [facility] Systolic blood pressure 2023-07-23 06:00:00 145 mm[Hg] [facility] Diastolic blood pressure 2023-07-23 06:00:00 93 mm[Hg] [facility] Heart rate 2023-07-23 06:00:00 73 /min [facility] Respiratory rate 2023-07-23 06:00:00 16 /min [facility] Oxygen saturation in Arterial blood by Pulse oximetry 2023-07-23 06:00:00 98 /min [facility] Body temperature 2023-07-23 02:38:00 37.11 Carol [facility] Systolic blood pressure 2022-11-15 11:00:00 128 mm[Hg] [facility] Diastolic blood pressure 2022-11-15 11:00:00 85 mm[Hg] [facility] Heart rate 2022-11-15 11:00:00 72 /min [facility] Respiratory rate 2022-11-15 11:00:00 17 /min [facility] Oxygen saturation in Arterial blood by Pulse oximetry 2022-11-15 11:00:00 96 /min [facility] Body temperature 2022-11-15 09:37:00 36.89 Carol [facility] Body height 2022-11-15 09:37:00 177.8 cm [facility] Body weight 2022-11-15 09:37:00 86.183 kg [facility] BMI 2022-11-15 09:37:00 27.26 kg/m2 [facility] Systolic blood pressure 2022-08-09 13:52:00 116 mm[Hg] [facility] Diastolic blood pressure 2022-08-09 13:52:00 76 mm[Hg] [facility] Heart rate 2022-08-09 13:52:00 62 /min [facility] Body temperature 2022-08-09 13:52:00 36.44 Carol [facility] Body height 2022-08-09 13:52:[address] [facility] Body weight 2022-08-09 13:52:[address] [facility] BMI 2022-08-09 13:52:00 27.62 kg/m2 [facility] Oxygen saturation in Arterial blood by Pulse oximetry 2022-08-09 13:52:00 98 /min [facility] Systolic blood pressure 2022-07-19 20:02:00 107 mm[Hg] [facility] Diastolic blood pressure 2022-07-19 20:02:00 67 mm[Hg] [facility] Heart rate 2022-07-19 20:02:00 75 /min [facility] Body temperature 2022-07-19 20:02:00 36.89 Carol [facility] Body height 2022-07-19 20:02:00 180.3 cm [facility] Body weight 2022-07-19 20:02:00 90.81 kg [facility] BMI 2022-07-19 20:02:00 27.92 kg/m2 [facility] Oxygen saturation in Arterial blood by Pulse oximetry 2022-07-19 20:02:00 100 /min [facility] Systolic blood pressure 2021-04-27 17:30:43 120 mm[Hg] [facility] Diastolic blood pressure 2021-04-27 17:30:43 75 mm[Hg] [facility] Heart rate 2021-04-27 17:30:43 70 /min [facility] Body temperature 2021-04-27 17:30:43 36.78 Carol [facility] Respiratory rate 2021-04-27 17:30:43 18 /min [facility] Oxygen saturation in Arterial blood by Pulse oximetry 2021-04-27 17:30:43 100 /min [facility] BP Systolic 2024-07-02 09:15:00 120 mm[Hg] Step hen F Mohinder BP Diastolic 2024-07-02 09:15:00 77 mm[Hg] Dmitry phen F Mohinder Weight Measured 2024-07-02 09:15:00 180.00 pounds Andrew F Mohinder Height Measured 2024-07-02 09:15:00 73.00 inches Andrew F Mohinder Body Temperature 2024-07-02 09:15:00 97.90 degrees Andrew F Mohinder Heart Rate 2024-07-02 09:15:00 67.00 /min Cherie en F Mohinder Respiratory Rate 2024-07-02 09:15:00 18.00 /min Andrew F Mohinder BP Systolic 2024-06-04 14:18:00 Step hen F Mohinder BP Diastolic 2024-06-04 14:18:00 Dmitry phen F Mohinder Weight Measured 2024-06-04 14:18:00 Andrew F Mohinder Height Measured 2024-06-04 14:18:00 Andrew F Mohinder Body Temperature 2024-06-04 14:18:00 Andrew F Mohinder Heart Rate 2024-06-04 14:18:00 Cherie en F Mohinder Respiratory Rate 2024-06-04 14:18:00 Andrew F Mohinder BP Systolic 2024-03-21 14:07:00 122 mm[Hg] Step hen F Mohinder BP Diastolic 2024-03-21 14:07:00 84 mm[Hg] Dimtry phen F Mohinder Weight Measured 2024-03-21 14:07:00 185.80 pounds Andrewalexei Vines Height Measured 2024-03-21 14:07:00 73.00 inches Andrew F Mohinder Body Temperature 2024-03-21 14:07:00 97.70 degrees Andrew F Mohinder Heart Rate 2024-03-21 14:07:00 72.00 /min Cherie en F Mohinder Respiratory Rate 2024-03-21 14:07:00 18.00 /min Andrew F Mohinder BP Systolic 2023-10-06 15:50:00 120 mm[Hg] Step hen F Mohinder BP Diastolic 2023-10-06 15:50:00 84 mm[Hg] Dmitry phen F Mohinder Weight Measured 2023-10-06 15:50:00 192.00 pounds Andrew F Mohinder Height Measured 2023-10-06 15:50:00 73.00 inches Andrew F Mohinder Body Temperature 2023-10-06 15:50:00 98.20 degrees Andrew F Mohinder Heart Rate 2023-10-06 15:50:00 73.00 /min Cherie en F Mohinder Respiratory Rate 2023-10-06 15:50:00 18.00 /min Andrew F Mohinder BP Systolic 2023-07-22 14:44:00 124 mm[Hg] Step hen F Mohinder BP Diastolic 2023-07-22 14:44:00 82 mm[Hg] Dmitry phen F Mohinder Weight Measured 2023-07-22 14:44:00 194.60 pounds Andrew F Mohinder Height Measured 2023-07-22 14:44:00 73.00 inches Andrew F Mohinder Body Temperature 2023-07-22 14:44:00 98.20 degrees Andrew F Mohinder Heart Rate 2023-07-22 14:44:00 72.00 /min Cherie en F Mohinder Respiratory Rate 2023-07-22 14:44:00 17.00 /min Andrew F Mohinder BP Systolic 2023-05-09 14:42:00 127 mm[Hg] Step hen F Mohinder BP Diastolic 2023-05-09 14:42:00 90 mm[Hg] Dmitry phen F Mohinder Weight Measured 2023-05-09 14:42:00 191.40 pounds Andrew F Mohinder Height Measured 2023-05-09 14:42:00 73.00 inches Andrew F Mohinder Body Temperature 2023-05-09 14:42:00 98.40 degrees Andrew F Mohinder Heart Rate 2023-05-09 14:42:00 80.00 /min Cherie en F Mohinder Respiratory Rate 2023-05-09 14:42:00 17.00 /min Andrew F Mohinder BP Systolic 2023-04-19 15:52:00 113 mm[Hg] Step hen F Mohinder BP Diastolic 2023-04-19 15:52:00 74 mm[Hg] Dmitry phen F Mohinder Weight Measured 2023-04-19 15:52:00 196.40 pounds Andrew F Mohinder Height Measured 2023-04-19 15:52:00 73.00 inches Andrew F Mohinder Body Temperature 2023-04-19 15:52:00 97.40 degrees Andrew F Mohinder Heart Rate 2023-04-19 15:52:00 72.00 /min Cherie en F Mohinder Respiratory Rate 2023-04-19 15:52:00 Andrew F Mohinder BP Systolic 2022-11-17 09:34:00 107 mm[Hg] Step hen F Mohinder BP Diastolic 2022-11-17 09:34:00 69 mm[Hg] Dmitry phen F Mohinder Weight Measured 2022-11-17 09:34:00 198.00 pounds Andrew F Mohinder Height Measured 2022-11-17 09:34:00 73.00 inches Andrew F Mohinder Body Temperature 2022-11-17 09:34:00 97.10 degrees Andrew F Mohinder Heart Rate 2022-11-17 09:34:00 72.00 /min Cherie en F Mohinder Respiratory Rate 2022-11-17 09:34:00 25.00 /min Andrew F Mohinder BP Systolic 2022-10-25 13:14:00 125 mm[Hg] Step hen F Mohinder BP Diastolic 2022-10-25 13:14:00 80 mm[Hg] Dmitry phen F Mohinder Weight Measured 2022-10-25 13:14:00 197.40 pounds Andrew F Mohinder Height Measured 2022-10-25 13:14:00 73.00 inches Andrew F Mohinder Body Temperature 2022-10-25 13:14:00 98.60 degrees Andrew F Mohinder Heart Rate 2022-10-25 13:14:00 73.00 /min Cherie en F Mohinder Respiratory Rate 2022-10-25 13:14:00 18.00 /min Andrew F Mohinder BP Systolic 2022-10-12 14:04:00 123 mm[Hg] Step hen F Mohinder BP Diastolic 2022-10-12 14:04:00 78 mm[Hg] Dmitry phen F Mohinder Weight Measured 2022-10-12 14:04:00 195.20 pounds Anderw F Mohinder Height Measured 2022-10-12 14:04:00 73.00 inches Andrew F Mohinder Body Temperature 2022-10-12 14:04:00 97.30 degrees Andrew F Mohinder Heart Rate 2022-10-12 14:04:00 75.00 /min Cherie en F Mohinder Respiratory Rate 2022-10-12 14:04:00 Andrew F Mohinder BP Systolic 2022-10-06 15:29:00 127 mm[Hg] Step hen F Mohinder BP Diastolic 2022-10-06 15:29:00 83 mm[Hg] Dmitry phen F Mohinder Weight Measured 2022-10-06 15:29:00 197.20 pounds Andrew F Mohinder Height Measured 2022-10-06 15:29:00 73.00 inches Andrew F Mohinder Body Temperature 2022-10-06 15:29:00 97.50 degrees Andrew F Mohinder Heart Rate 2022-10-06 15:29:00 63.00 /min Cherie en F Mohinder Respiratory Rate 2022-10-06 15:29:00 18.00 /min Andrew F Mohinder BP Systolic 2022-09-28 13:32:00 124 mm[Hg] Step hen F Mohinder BP Diastolic 2022-09-28 13:32:00 77 mm[Hg] Dmitry phen F Mohinder Weight Measured 2022-09-28 13:32:00 198.00 pounds Andrew F Mohinder Height Measured 2022-09-28 13:32:00 73.00 inches Andrew F Mohinder Body Temperature 2022-09-28 13:32:00 98.10 degrees Andrew F Mohinder Heart Rate 2022-09-28 13:32:00 78.00 /min Cherie en F Mohinder Respiratory Rate 2022-09-28 13:32:00 Andrew F Mohinder BP Systolic 2022-09-23 15:42:00 114 mm[Hg] Step hen F Mohinder BP Diastolic 2022-09-23 15:42:00 74 mm[Hg] Dmitry phen F Mohinder Weight Measured 2022-09-23 15:42:00 194.80 pounds Andrew F Mohinder Height Measured 2022-09-23 15:42:00 73.00 inches Andrew F Mohinder Body Temperature 2022-09-23 15:42:00 97.90 degrees Andrew F Mohinder Heart Rate 2022-09-23 15:42:00 84.00 /min Cherie en F Mohinder Respiratory Rate 2022-09-23 15:42:00 Andrew F Mohinder Heart Rate 2018-03-16 15:31:00 [facility] [place] Weight 2018-03-16 15:31:00 [facility] Height 2018-03-16 15:31:00 180.34 cm [facility] Cal BMI Calculated 2018-03-16 15:31:00 M gabi Cortésann Systolic (mm Hg) 2018-03-16 15:31:00 [facility] Diastolic (mm Hg) 2018-03-16 15:31:00 [facility] Procedures Procedure Date / Time Performed Performing Clinician Source CT ABDOMEN PELVIS W CONTRAST 2023-07-23 05:10:[facility]OASSAY[facility] - COMPREHENSIVE DRUG SCREEN 2023-07-23 04:17:00 [facility]23-07-23 04:15:00 [facility] LIPASE 2023-07-23 03:36:00 [facility] COMP. METABOLIC PANEL (61205) 2023-07-23 03:36:00 Gavin [facility] CBC WITH DIFF 2023-07-23 03:36:00 Gavin [facility] CONSENT/REFUSAL FOR DIAGNOSIS AND TREATMENT 2023-07-23 02:27:43 Doctor Unassigned, [place] [facility] NOTICE OF PRIVACY PRACTICES 2023-07-23 02:25:38 Doctor Unassigned, [place] [facility] EKG-12 LEAD 2022-11-15 11:49:31 Ashley Gayle [facility] XR CHEST 1 VW 2022-11-15 10:25:00 Ashley Gayle [facility] AC ABG + LACTIC ACID 2022-11-15 10:08:00 Kim Gayle i [facility] LIPASE 2022-11-15 09:53:00 Ashley Gayle [facility] TROPONIN I 2022-11-15 09:53:00 Ashley Gayle [facility] COMP. METABOLIC PANEL ([id number]) 2022-11-15 09:53:00 Ashley Gayle [facility] CBC WITH DIFF 2022-11-15 09:53:00 Ashley Gayle [facility] N-TERMINAL PRO-BNP 2022-11-15 09:53:00 Ashley Gayle [facility] NOTICE OF PRIVACY PRACTICES 2022-11-15 09:35:30 Doctor Unassigned, [place] [facility] CONSENT/REFUSAL FOR DIAGNOSIS AND TREATMENT 2022-11-15 09:31:42 Doctor Unassigned, [place] [facility] DISCLOSURE AND CONSENT, MEDICAL AND SURGICAL PROCEDURES 2022-08-10 06:01:00 Doctor Unassigned, [place] [facility] TDAP VACCINE, >11 YRS, IM 2022-07-19 20:16:53 Jluis Whelan [facility] FLU VACC (), 6 MO-64 YRS, .5ML, IM, QUAD (FLUCELVAX) 2022-07-19 20:16:53 Jluis Whelan [facility] ASSIGNMENT OF BENEFITS 2022-07-19 19:23:15 Docto r Unassigned, [place] [facility] CT ABDOMEN PELVIS W CONTRAST 2021-04-27 16:08:21 Bakari Red [facility] LIPASE 2021-04-27 15:45:00 [facility] COMP. METABOLIC PANEL ([id number]) 2021-04-27 15:45:00 Bakari Red [facility] CBC WITH DIFF 2021-04-27 15:45:00 Bakari Red [facility] URINALYSIS 2021-04-27 15:45:00 [facility] NOTICE OF PRIVACY PRACTICES 2021-04-27 14:21:16 Doctor Unassigned, [place] [facility] CONSENT/REFUSAL FOR DIAGNOSIS AND TREATMENT 2021-04-27 14:20:59 Doctor Unassigned, [place] [facility] Encounters Start Date/Time End Date/Time Encounter Type Admission Type Attending [facility] Care Facility Care Department Encounter ID Source 2024-02-28 15:06:00 [facility] [id number] [facility] 2022-11-12 10:45:07 Outpatient R LISY CHANG [facility] [place] [id number] [facility] 2022-09-13 15:45:30 Outpatient R LISY CHANG [facility] [place] [id number] [facility] 2024-07-02 09:04:16 2024-07-02 09:04:16 Outpatient SFA S[facility] [id number] Andrew Vines 2024-07-02 00:00:00 2024-07-02 00:00:00 Outpatient Visit SFA [id number] Andrew Vines 2024-06-04 14:17:07 2024-06-04 14:17:07 Outpatient SFA SFA [id number] Andrew Vines 2024-06-04 00:00:00 2024-06-04 00:00:00 Outpatient Visit SFA SFA [id number] Andrew Vines 2024-05-10 00:00:00 2024-05-10 00:00:00 Outpatient DAVE MONDRAGON [id number] Maddi Toussaint 2024-03-21 13:55:36 2024-03-21 13:55:36 Outpatient SFA SFA [id number] Andrew Vines 2024-03-21 00:00:00 2024-03-21 00:00:00 Outpatient Visit SFA [id number] Andrew Vines 2024-03-01 09:30:00 2024-03-01 09:30:00 Outpatient BIBIANA HERNANDEZ [id number] Maddi Toussaint 2023-10-06 15:49:49 2023-10-06 15:49:49 Outpatient SFA SFA [id number] Andrew Vines 2023-10-06 00:00:00 2023-10-06 00:00:00 Outpatient Visit SFA [id number] Andrew Vines 2023-09-15 00:00:00 2023-09-15 00:00:00 Outpatient ESA DUMONT HOWARD [facility] [id number] [facility] 2023-09-14 00:00:00 2023-09-14 00:00:00 [facility] 1.2.840.114 350.1.13.10 4.2.7.2.686 [id number] [facility] 2023-09-13 00:00:00 2023-09-13 00:00:00 Outpatient ESA DUMONT [facility] [id number] [facility] 2023-09-08 00:00:00 2023-09-08 00:00:00 Outpatient ESA DUMONT [facility] [id number] [facility] 2023-09-05 13:40:00 2023-09-05 14:37:30 Outpatient ESA DUMONT [facility] [id number] [facility] 2023-09-05 13:40:00 2023-09-05 14:37:30 Office Visit Esa Caban Ebenezer [facility] KELIN?SOLOMONMichi [facility] 1.2.840.114 350.1.13.10 4.2.7.2.686 [id number] [facility] 2023-08-24 14:53:01 2023-08-24 14:53:01 Outpatient SFA SFA [id number] Andrew Vines 2023-08-22 13:40:00 2023-08-22 13:40:00 Outpatient ESA DUMONT [facility]ARD [facility] [id number] [facility] 2023-08-20 13:47:23 2023-08-20 13:47:23 Outpatient SFA [facility] [id number] Andrew Vines 2023-08-09 13:00:00 2023-08-09 13:00:00 Outpatient SEA DUMONT [facility]ARD [facility] [id number] [facility] 2023-07-22 20:42:00 2023-07-23 00:23:00 Emergency X CLOVER [facility] ERT [id number] [facility] 2023-07-22 20:42:00 2023-07-23 00:23:00 Emergency Gavin Razia [facility] 1.2.840.114 350.1.13.10 4.2.7.2.686 [id number] [facility] 2023-07-22 14:29:58 2023-07-22 14:29:58 Outpatient [facility] [id number] Andrew Gill Mohinder 2023-07-22 00:00:00 2023-07-22 00:00:00 Orders Only Doctor Unassigned, [place] [facility] 1.2.840.114 350.1.13.10 4.2.7.2.686 [id number] [facility] 2023-05-09 14:33:53 2023-05-09 14:33:53 Outpatient [facility] [id number] Andrew Gill Mohinder 2023-04-19 15:44:09 2023-04-19 15:44:09 Outpatient [facility] [id number] Andrew Gill Mohinder 2022-11-23 17:12:36 2022-11-23 17:12:36 Outpatient SFA [facility] [id number] Andrew Gill Mohinder 2022-11-17 10:53:37 2022-11-17 10:53:37 Outpatient SFA [facility] [id number] Andrew Gill Mohinder 2022-11-15 04:39:00 2022-11-15 06:47:00 Emergency X ASHLEY GAYLE [facility] ERT [id number] [facility] 2022-11-15 04:39:00 2022-11-15 06:47:00 Emergency Ashley Gayle [facility] 1..840.114 350.1.13.10 4.2.7.2.686 [id number] [facility] 2022-10-27 00:00:00 2022-10-27 00:00:00 Telephone Lisy Chang [facility] 1.2.840.114 350.1.13.10 4.2.7.2.686 [id number] [facility] 2022-10-25 13:09:06 2022-10-25 13:09:06 Outpatient [facility] [id number] Andrew Vines 2022-10-12 13:56:07 2022-10-12 13:56:07 Outpatient [facility] [id number] Andrew Gill [place] 2022-10-06 15:19:09 2022-10-06 15:19:09 Outpatient [facility] [id number] Andrew Gill [place] 2022-09-28 13:29:12 2022-09-28 13:29:12 Outpatient [facility] [id number] Andrew Gill Mohinder 2022-09-27 00:00:00 2022-09-27 00:00:00 Telephone ChangLisy morin [facility] 1..840.114 350.1.13.10 4.2.7.2.686 [id number] [facility] 2022-09-17 00:00:00 2022-09-17 00:00:00 Telephone Lisy Chang [facility] 1..840.114 350.1.13.10 4.2.7.2.686 [id number] [facility] 2022-09-15 00:00:00 2022-09-15 00:00:00 Telephone Gabrielle Forman [facility] 1.840.114 350.1.13.10 4.2.7.2.686 [id number] [facility] 2022-09-13 00:00:00 2022-09-13 00:00:[address] [facility] 1.840.114 350.1.13.10 4.2.7.2.686 [id number] [facility] 2022-08-13 00:00:00 2022-08-13 00:00:00 Patient Secure Msg Doctor Unassigned, [place] [facility] 1.0.114 350.1.13.10 4.2.7.2.686 [id number] [facility] 2022-08-10 00:00:00 2022-08-10 00:00:00 Orders Only Doctor Unassigned, [place] [facility] 1.0.114 350.1.13.10 4.2.7.2.686 [id number] [facility] 2022-08-09 08:00:00 2022-08-09 10:23:38 Outpatient R LISY CHANG [facility] [id number] [facility] 2022-08-09 08:00:00 2022-08-09 10:23:38 Office Visit Lisy Chang [facility] 1.0.114 350.1.13.10 4.2.7.2.686 [id number] [facility] 2022-07-20 00:00:00 2022-07-20 00:00:00 Telephone Jluis Whelan [facility] KELIN?[facility] 1.2840.114 350.1.13.10 4.2.7.2.686 [id number] [facility] 2022-07-19 14:00:00 2022-07-19 17:27:03 Outpatient R JLUIS WHELAN [facility] [id number] [facility] 2022-07-19 15:00:00 2022-07-19 15:15:00 Regional Education Manager Visit Lab, Ang - Db Tip [facility]ACK [facility] 1.2.840.114 350.1.13.10 4.2.7.2.686 [id number] [facility] 2022-07-19 14:00:00 2022-07-19 14:30:00 Office Visit Tip Jluis [facility]?JACK [facility] 1.2.840.114 350.1.13.10 4.2.7.2.686 [id number] [facility] 2022-07-19 00:00:00 2022-07-19 00:00:00 Orders Only Doctor Unassigned, [place] [facility] 1.2.840.114 350.1.13.10 4.2.7.2.686 [id number] [facility] 2022-07-12 13:00:00 2022-07-12 13:00:00 Outpatient R JLUIS WHELAN [facility] [id number] [facility] 2021-04-27 08:27:00 2021-04-27 11:54:00 Emergency X BAKARI RED [facility] ERT [id number] [facility] 2021-04-27 08:27:00 2021-04-27 11:54:00 Emergency Bakari Red [facility] 1..840.114 350.1.13.10 4.2.7.2.686 [id number] [facility] 2018-05-26 16:20:00 2018-05-28 05:59:59 Outside Medical Records nullFlavo r [facility] [id number] Dilip Mccall 2018-04-21 17:15:00 2018-04-21 17:15:00 Ambulatory Pre-Reg nullFlavo r [facility] [id number] Dilip Mccall 2018-03-22 22:51:00 2018-03-24 04:59:59 Outside Medical Records nullFlavo r [facility] [id number] Dilip Mccall 2018-03-22 21:22:00 2018-03-24 04:59:59 Phone Message nullFlavo r [facility] [id number] Dilip Mccall 2018-03-16 16:00:00 2018-03-17 04:59:59 Outpatient nullFlavo r [facility] [id number] Dilip Mccall Results Test Description Test Time Test Comments Results Result Co mments Source CULTURE, URINE 2024-07-04 09:30:54 SPECIMEN NUMBER: [id number] CULTURE, URINE SPECIMEN NUMBER: [id number] SOURCE: URINE REPORT STATUS: FINAL FINAL REPORT: 07/04/2024 NO GROWTH HIV 1/2 4TH GEN, RFLX [id number] 05:03:41* Test Item Value Reference Range Interpretation Comme nts HIV 1/2 4TH GEN, RFLX CONF ( test code = 3514) NON-REACTIVE NON-REACTIVE HEPATITIS PANEL, [id number] 05:03:41* Test Item Value Reference Range Interpretation Comme nts HEPATITIS A IgM (test code = 94068) NON-REACTIVE NON-REACTIVE HEPATITIS B CORE IgM (test code = 4644) NON-REACTIVE NON-REACTIVE HEPATITIS B SURF AG (test code = 2739) NON-REACTIVE NON-REACTIVE HEPATITIS C ANTIBODY (test code = 4675) NON-REACTIVE NON-REACTIVE INTERPRETATION HEPATITIS A: (test code = 2552) (NOTE) Hepatitis A sero logy shows no evidence of acute hepatitis A. INTERPRETATION HEPATITIS B: (test code = 99507) (NOTE) Hepatitis B sero logy shows no evidence of acute hepatitis B andno indication of exposure to hepatitis B virus in the previous alex eight months. INTERPRETATION HEPATITIS C: (test code = 82912) (NOTE) Hepatitis C sero logy shows no evidence of exposure to hepatitisC virus at this time. It can take up to 12 months after exposure tothe hepatitis C virus for antibodies to become detectable in the blood in certain patients. UNLESS OTHERWISE INDICATED, ALL TESTING PERFORMED AT [facility] [address] [place] [id number] ERP ANALYST: SHIELA LANDERS M.D. [place] NUMBER [id number] [facility] [place]. [id number] 04:00:08* Test Item Value Reference Range Interpretation Comme nts RPR RESULT (test code = 3501) NON-REACTIVE NON-REACTIVE RPR TITER (test code = 3500) NOT INDIC. TITER NOT INDIC. CULTURE, [id number] 08:45:00SPECIMEN NUMBER: [id number] CULTURE, URINE SPECIMEN NUMBER: [id number] SOURCE: URINE REPORT STATUS: FINAL FINAL REPORT: 03/23/2024 NO GROWTHCULTURE, [id number] 00:00:00* Test Item Value Reference Range Interpretation Comme nts CULTURE, URINE (test code = 49769) SPECIMEN NUMBER: [id number] Andrew Gill AustinCULTURE, [id number] 00:00:00* Test Item Value Reference Range Interpretation Comme nts CULTURE, URINE (test code = 01066) SPECIMEN NUMBER: [id number] Andrew Gill AustinCT/NG, NAAT, [id number] 21:05:45* Test Item Value Reference Range Interpretation Comme nts CHLAMYDIA, NAAT, URINE (test code = 92399) NEGATIVE NEGATIVE Testing is perfo rmed with Serge VALERIO 6800/8800 systems usingreal-time polymerase chain reaction (PCR) method. A negative result does not exclude low level infection, specimensampling error, or collection error. GONORRHEA, NAAT, URINE (test code = 70179) NEGATIVE NEGATIVE Testing is perfo rmed with Serge VALERIO 6800/8800 systems usingreal-time polymerase chain reaction (PCR) method. A negative result does not exclude low level infection, specimensampling error, or collection error. TRICHOMONAS, NAAT, [id number] 18:56:36* Test Item Value Reference Range Interpretation Comme nts TRICHOMONAS, NAAT, URINE (test code = 03963) NEGATIVE NEGATIVE Testing is perfo rmed with Serge VALERIO 6800/8800 method usingreal-time polymerase chain reaction (PCR) method. A negative result does not exclude low level infection, specimensampling error, or collection error. A female-specific Trichomonas vaginalis NAAT order code was ordered shirley male patient. [facility] has validated and implemented testing forTrichomonas vaginalis by gender and by device or source according tothe wet process technician instructions for use. Regardless of order code, alltesting uses high sensitivity, high specificity nucleic acidamplification technology, but selection of incorrect order code for agender delays testing for order clarification. To assure timely testing and reporting, please contact [employer] or your financial reporting accountant for further assistance. HEPATITIS A [id number] 06:54:44* Test Item Value Reference Range Interpretation Comme nts HEPATITIS A IgM (test code = 2728) NON-REACTIVE NON-REACTIVE UNLESS OTHERW ISE INDICATED, ALL TESTING PERFORMED AT [facility] [address] [place] [address] ERP ANALYST: SHIELA LANDERS M.D. CLIA NUMBER [id number] [facility] [place]. [id number] HEPATITIS PANEL, [id number] 06:54:44* Test Item Value Reference Range Interpretation Comments HEPATITIS A TOTAL AB (test code = 2725) REACTIVE NON-REACTIVE A HEPATITIS B SURF AG (test code = 2739) NON-REACTIVE NON-REACTIVE HEP B CORE TOTAL AB (test code = 2729) NON-REACTIVE NON-REACTIVE HEPATITIS B SURFACE AB (test code = 2737) NON-REACTIVE NON-REACTIVE HEPATITIS C ANTIBODY (test code = 4675) NON-REACTIVE NON-REACTIVE INTERPRETATION HEPATITIS A: (test code = 2552) (NOTE) Hepatitis A sero logy consistent with past exposure or previousvaccination to hepatitis A virus. No evidence of current acutehepatitis A infection. INTERPRETATION HEPATITIS B: (test code = 18679) (NOTE) Hepatitis B sero logy shows no evidence of past exposure to orcurrent infection with hepatitis B virus. No evidence of hepatitis Bimmunization is identified. INTERPRETATION HEPATITIS C: (test code = 28375) (NOTE) Hepatitis C sero logy shows no evidence of exposure to hepatitisC virus at this time. It can take up to 12 months after exposure tothe hepatitis C virus for antibodies to become detectable in the blood in certain patients. HIV 1/2 4TH GEN, RFLX [id number] 06:54:44* Test Item Value Reference Range Interpretation Comme nts HIV 1/2 4TH GEN, RFLX CONF ( test code = 3514) NON-REACTIVE NON-REACTIVE LIPID [id number] 04:37:07* Test Item Value Reference Range Interpretation Comme nts CHOLESTEROL (test code = 2210) 175 MG/DL <200 TRIGLYCERIDES (test code = 2232) 83 MG/DL <150 HDL CHOLESTEROL (test code = 2220) 42 MG/DL >39 CALC LDL CHOL (test code = 2237) 115 MG/DL <100 H NOTE: CALCULATED LDL IS BASED ON VINI-AMADOR METHOD WHICHINCLUDES ADJUSTABLE TRIGLYCERIDE:VLDL CHOLESTEROL RATIO.THIS FACTOR VARIES BY MEASURED TRIGLYCERIDE AND NON-HDLCHOLESTEROL CONCENTRATIONS WITH INCREASED CALCULATED LDL SEENIN HIGHER TRIGLYCERIDE OR LOWER NON-HDL SPECIMENS. FOR MOREINFORMATION, SEE CLIENT ANNOUNCEMENT AT [email or web address] RISK RATIO LDL/HDL (test code = 2238) 2.74 RATIO <3.55 COMPREHENSIVE METABOLIC [id number] 04:37:07* Test Item Value Reference Range Interpretation Comme nts GLUCOSE (test code = 2217) 88 MG/DL 70-99 BUN (test code = 2208) 11 MG/DL 6-20 CREATININE (test code = 2214) 1.09 MG/DL 0.80-1.40 eGFR (2020 CKD-EPI) (test co de = 02771) 83 ML/MIN/1.73 >60 CALC BUN/CREAT (test code = 2235) 10 RATIO 6-28 SODIUM (test code = 223) 139 MEQ/L 133-146 POTASSIUM (test code = 2228) 3.9 MEQ/L 3.5-5.4 CHLORIDE (test code = 2215) 102 MEQ/L 95-107 CARBON DIOXIDE (test code = 2206) 24 MEQ/L 19-31 CALCIUM (test code = 2209) 9.6 MG/DL 8.5-10.5 PROTEIN, TOTAL (test code = 2229) 7.7 G/DL 6.1-8.3 ALBUMIN (test code = 2201) 4.5 G/DL 3.5-5.2 CALC GLOBULIN (test code = 2240) 3.2 G/DL 1.9-3.7 CALC A/G RATIO (test code = 2234) 1.4 RATIO 1.0-2.6 BILIRUBIN, TOTAL (test code = 2207) 1.1 MG/DL <=1.2 ALKALINE PHOSPHATASE (test code = 2204) 61 U/L 40-118 AST (test code = 2218) 19 U/L 9-50 ALT (test code = 2219) 12 U/L 5-50 [id number] 04:35:10* Test Item Value Reference Range Interpretation Comme nts RPR RESULT (test code = 3501) NON-REACTIVE NON-REACTIVE RPR TITER (test code = 3500) NOT INDIC. TITER NOT INDIC. HEMOGLOBIN [id number] 02:59:40* Test Item Value Reference Range Interpretation Comme nts HEMOGLOBIN A1c (test code = 17228) 5.3 % 4.2-5.6 CBC W/AUTO DIFF WITH [id number] 02:34:06* Test Item Value Reference Range Interpretation Comme nts WBC (test code = 1001) 6.3 K/UL 3.5-11.0 RBC (test code = 1002) 5.15 M/UL 4.50-6.10 HEMOGLOBIN (test code = 1003) 15.4 G/DL 13.5-17.0 HEMATOCRIT (test code = 1004) 45.0 % 40.0-51.0 MCV (test code = 1005) 87.4 fL 80.0-99.0 MCH (test code = 1006) 29.9 PG 25.0-33.0 MCHC (test code = 1007) 34.2 G/DL 31.0-36.0 RDW (test code = 1038) 13.0 % 11.5-15.0 NEUTROPHILS (test code = 1008) 48.5 % LYMPHOCYTES (test code = 1010) 39.0 % MONOCYTES (test code = 1011) 4.8 % EOSINOPHILS (test code = 1012) 7.0 % BASOPHILS (test code = 1013) 0.2 % IMMATURE GRANULOCYTES (test code = 1036) 0.5 % NUCLEATED RBCS (test code = 1065) 0.0 /100 WBC'S See_Comment [Automated messa ge] The system which generated this result transmitted reference range: 0.0. The reference range was not used to interpret this result as normal/abnormal. PLATELET COUNT (test code = 1015) 145 K/UL 130-400 ABSOLUTE NEUTROPHILS (test code = 1066) 3.07 K/UL 1.50-7.50 ABSOLUTE LYMPHOCYTES (test code = 1067) 2.46 K/UL 1.00-4.00 ABSOLUTE MONOCYTES (test code = 1068) 0.30 K/UL 0.20-1.00 ABSOLUTE EOSINOPHILS (test code = 1040) 0.44 K/UL 0.00-0.50 ABSOLUTE BASOPHILS (test code = 1069) 0.01 K/UL 0.00-0.20 ABS IMMATURE GRANULOCYTES (test code = 1020) 0.03 K/UL 0.00-0.10 ABS NUCLEATED RBCS (test code = 92247) 0.00 K/UL 0.00-0.11 CBC W/AUTO [id number] 00:00:00* Test Item Value Reference Range Interpretation Comme nts WBC (test code = 1001) 6.3 K/UL RBC (test code = 1002) 5.15 M/UL HEMOGLOBIN (test code = 1003) 15.4 G/DL HEMATOCRIT (test code = 1004) 45.0 % MCV (test code = 1005) 87.4 fL MCH (test code = 1006) 29.9 PG MCHC (test code = 1007) 34.2 G/DL RDW (test code = 1038) 13.0 % NEUTROPHILS (test code = 1008) 48.5 % LYMPHOCYTES (test code = 1010) 39.0 % MONOCYTES (test code = 1011) 4.8 % EOSINOPHILS (test code = 1012) 7.0 % BASOPHILS (test code = 1013) 0.2 % IMMATURE GRANULOCYTES (test code = 1036) 0.5 % NUCLEATED RBCS (test code = 1065) 0.0 /100WBC'S PLATELET COUNT (test code = 1015) 145 K/UL ABSOLUTE NEUTROPHILS (test c ode = 1066) 3.07 K/UL ABSOLUTE LYMPHOCYTES (test c ode = 1067) 2.46 K/UL ABSOLUTE MONOCYTES (test cod e = 1068) 0.30 K/UL ABSOLUTE EOSINOPHILS (test c ode = 1040) 0.44 K/UL ABSOLUTE BASOPHILS (test cod e = 1069) 0.01 K/UL ABS IMMATURE GRANULOCYTES (t est code = 1020) 0.03 K/UL ABS NUCLEATED RBCS (test cod e = 84052) 0.00 K/UL Andrew F AustinLIPID [id number] 00:00:00* Test Item Value Reference Range Interpretation Comme nts CHOLESTEROL (test code = 2210) 175 MG/DL TRIGLYCERIDES (test code = 2232) 83 MG/DL HDL CHOLESTEROL (test code = 2220) 42 MG/DL CALC LDL CHOL (test code = 2237) 115 MG/DL RISK RATIO LDL/HDL (test cod e = 2238) 2.74 RATIO Andrew VinesCOMPREHENSIVE METABOLIC [id number] 00:00:00* Test Item Value Reference Range Interpretation Comme nts GLUCOSE (test code = 2217) 88 MG/DL BUN (test code = 2208) 11 MG/DL CREATININE (test code = 2214) 1.09 MG/DL eGFR (2020 CKD-EPI) (test co de = 60206) 83 ML/MIN/1.73 CALC BUN/CREAT (test code = 2235) 10 RATIO SODIUM (test code = 2231) 139 MEQ/L POTASSIUM (test code = 2228) 3.9 MEQ/L CHLORIDE (test code = 2215) 102 MEQ/L CARBON DIOXIDE (test code = 2206) 24 MEQ/L CALCIUM (test code = 2209) 9.6 MG/DL PROTEIN, TOTAL (test code = 2229) 7.7 G/DL ALBUMIN (test code = 2201) 4.5 G/DL CALC GLOBULIN (test code = 2240) 3.2 G/DL CALC A/G RATIO (test code = 2234) 1.4 RATIO BILIRUBIN, TOTAL (test code = 2207) 1.1 MG/DL ALKALINE PHOSPHATASE (test code = 2204) 61 U/L AST (test code = 2218) 19 U/L ALT (test code = 2219) 12 U/L Andrew VinesHEMOGLOBIN [id number] 00:00:00* Test Item Value Reference Range Interpretation Comme nts HEMOGLOBIN A1c (test code = 16290) 5.3 % Andrew VinesHEPATITIS PROFILE (A,B,C)2024-03-22 00:00:00* Test Item Value Reference Range Interpretation Comme nts HEPATITIS A TOTAL AB (test c ode = 0229) REACTIVE HEPATITIS B SURF AG (test co de = 9816) NON-REACTIVE HEP B CORE TOTAL AB (test co de = 2729) NON-REACTIVE HEPATITIS B SURFACE AB (test code = 2737) NON-REACTIVE HEPATITIS C ANTIBODY (test c ode = 4675) NON-REACTIVE INTERPRETATION HEPATITIS A: (test code = 2552) (NOTE) INTERPRETATION HEPATITIS B: (test code = 02300) (NOTE) INTERPRETATION HEPATITIS C: (test code = 76214) (NOTE) Andrew VinesHIV 1/2 4TH GEN, RFLX [id number] 00:00:00* Test Item Value Reference Range Interpretation Comme nts HIV 1/2 4TH GEN, RFLX CONF ( test code = 3514) NON-REACTIVE Andrew [id number] 00:00:00* Test Item Value Reference Range Interpretation Comme nts RPR RESULT (test code = 3501) NON-REACTIVE RPR TITER (test code = 3500) NOT INDIC. TITER Andrew VinesCT/NG, NAAT, [id number] 00:00:00* Test Item Value Reference Range Interpretation Comme suman CHLAMYDIA, NAAT, URINE (test code = 76764) NEGATIVE GONORRHEA, NAAT, URINE (test code = 91949) NEGATIVE Andrew VinesTRICHOMONAS, URINE, [id number] 00:00:00* Test Item Value Reference Range Interpretation Comme suman TRICHOMONAS, NAAT, URINE (te st code = 31041) NEGATIVE Andrew VinesHEPATITIS A IgM [REFLEX]2024-03-22 00:00:00* Test Item Value Reference Range Interpretation Comme suman HEPATITIS A IgM (test code = 2728) NON-REACTIVE Andrew VinesCBC W/AUTO [id number] 00:00:00* Test Item Value Reference Range Interpretation Comme nts WBC (test code = 1001) 6.3 K/UL RBC (test code = 1002) 5.15 M/UL HEMOGLOBIN (test code = 1003) 15.4 G/DL HEMATOCRIT (test code = 1004) 45.0 % MCV (test code = 1005) 87.4 fL MCH (test code = 1006) 29.9 PG MCHC (test code = 1007) 34.2 G/DL RDW (test code = 1038) 13.0 % NEUTROPHILS (test code = 1008) 48.5 % LYMPHOCYTES (test code = 1010) 39.0 % MONOCYTES (test code = 1011) 4.8 % EOSINOPHILS (test code = 1012) 7.0 % BASOPHILS (test code = 1013) 0.2 % IMMATURE GRANULOCYTES (test code = 1036) 0.5 % NUCLEATED RBCS (test code = 1065) 0.0 /100WBC'S PLATELET COUNT (test code = 1015) 145 K/UL ABSOLUTE NEUTROPHILS (test c ode = 1066) 3.07 K/UL ABSOLUTE LYMPHOCYTES (test c ode = 1067) 2.46 K/UL ABSOLUTE MONOCYTES (test cod e = 1068) 0.30 K/UL ABSOLUTE EOSINOPHILS (test c ode = 1040) 0.44 K/UL ABSOLUTE BASOPHILS (test cod e = 1069) 0.01 K/UL ABS IMMATURE GRANULOCYTES (t est code = 1020) 0.03 K/UL ABS NUCLEATED RBCS (test cod e = 47771) 0.00 K/UL Andrew VinesLIPID [id number] 00:00:00* Test Item Value Reference Range Interpretation Comme nts CHOLESTEROL (test code = 2210) 175 MG/DL TRIGLYCERIDES (test code = 2232) 83 MG/DL HDL CHOLESTEROL (test code = 2220) 42 MG/DL CALC LDL CHOL (test code = 2237) 115 MG/DL RISK RATIO LDL/HDL (test cod e = 2238) 2.74 RATIO Andrew Gill MohinderCOMPREHENSIVE METABOLIC [id number] 00:00:00* Test Item Value Reference Range Interpretation Comme nts GLUCOSE (test code = 2217) 88 MG/DL BUN (test code = 2208) 11 MG/DL CREATININE (test code = 2214) 1.09 MG/DL eGFR (2020 CKD-EPI) (test co de = 33478) 83 ML/MIN/1.73 CALC BUN/CREAT (test code = 2235) 10 RATIO SODIUM (test code = 2231) 139 MEQ/L POTASSIUM (test code = 2228) 3.9 MEQ/L CHLORIDE (test code = 2215) 102 MEQ/L CARBON DIOXIDE (test code = 2206) 24 MEQ/L CALCIUM (test code = 2209) 9.6 MG/DL PROTEIN, TOTAL (test code = 2229) 7.7 G/DL ALBUMIN (test code = 2201) 4.5 G/DL CALC GLOBULIN (test code = 2240) 3.2 G/DL CALC A/G RATIO (test code = 2234) 1.4 RATIO BILIRUBIN, TOTAL (test code = 2207) 1.1 MG/DL ALKALINE PHOSPHATASE (test code = 2204) 61 U/L AST (test code = 2218) 19 U/L ALT (test code = 2219) 12 U/L Andrew VinesHEMOGLOBIN [id number] 00:00:00* Test Item Value Reference Range Interpretation Comme nts HEMOGLOBIN A1c (test code = 77696) 5.3 % Andrew VinesHEPATITIS PROFILE (A,B,C)2024-03-22 00:00:00* Test Item Value Reference Range Interpretation Comme nts HEPATITIS A TOTAL AB (test c ode = 2725) REACTIVE HEPATITIS B SURF AG (test co de = 2739) NON-REACTIVE HEP B CORE TOTAL AB (test co de = 2729) NON-REACTIVE HEPATITIS B SURFACE AB (test code = 2737) NON-REACTIVE HEPATITIS C ANTIBODY (test c ode = 4675) NON-REACTIVE INTERPRETATION HEPATITIS A: (test code = 2552) (NOTE) INTERPRETATION HEPATITIS B: (test code = 34656) (NOTE) INTERPRETATION HEPATITIS C: (test code = 86891) (NOTE) Andrew VinesHIV 1/2 4TH GEN, RFLX [id number] 00:00:00* Test Item Value Reference Range Interpretation Comme nts HIV 1/2 4TH GEN, RFLX CONF ( test code = 3514) NON-REACTIVE Andrew [id number] 00:00:00* Test Item Value Reference Range Interpretation Comme nts RPR RESULT (test code = 3501) NON-REACTIVE RPR TITER (test code = 3500) NOT INDIC. TITER Andrew VinesCT/NG, NAAT, [id number] 00:00:00* Test Item Value Reference Range Interpretation Comme nts CHLAMYDIA, NAAT, URINE (test code = 04463) NEGATIVE GONORRHEA, NAAT, URINE (test code = 80396) NEGATIVE Andrew VinesTRICHOMONAS, URINE, [id number] 00:00:00* Test Item Value Reference Range Interpretation Comme nts TRICHOMONAS, NAAT, URINE (te st code = 02126) NEGATIVE Andrew VinesHEPATITIS A IgM [REFLEX]2024-03-22 00:00:00* Test Item Value Reference Range Interpretation Comme nts HEPATITIS A IgM (test code = 2728) NON-REACTIVE Andrew Gill AustinHERPES SIMPLEX AB, [id number] 13:54:43* Test Item Value Reference Range Interpretation Comme nts HERPES SIMPLEX AB, IgM (test code = 06091) 0.56 INDEX SEE BELOW INTERPRETATION U NITS RANGE ----- ----- NEGATIVE INDEX <=0.89 EQUIVOCAL INDEX 0.90-1.09 POSITIVE INDEX >=1.10 CHLAMYDIA, NAAT, [id number] 12:36:35* Test Item Value Reference Range Interpretation Comme nts CHLAMYDIA, NAAT, URINE (test code = 66610) NEGATIVE NEGATIVE Testing is perfo rmed with Serge VALERIO 6800/8800 systems usingreal-time polymerase chain reaction (PCR) method. A negative result does not exclude low level infection, specimensampling error, or collection error. GONORRHEA, NAAT, [id number] 12:36:35* Test Item Value Reference Range Interpretation Comme nts GONORRHEA, NAAT, URINE (test code = 22595) NEGATIVE NEGATIVE Testing is perfo rmed with Serge VALERIO 6800/8800 systems usingreal-time polymerase chain reaction (PCR) method. A negative result does not exclude low level infection, specimensampling error, or collection error. LIPID [id number] 05:55:17* Test Item Value Reference Range Interpretation Comme nts CHOLESTEROL (test code = 2210) 154 MG/DL <200 TRIGLYCERIDES (test code = 2232) 79 MG/DL <150 HDL CHOLESTEROL (test code = 2220) 40 MG/DL >39 CALC LDL CHOL (test code = 2237) 97 MG/DL <100 NOTE: CALCULATED LDL IS BASED ON VINI-AMADOR METHOD WHICHINCLUDES ADJUSTABLE TRIGLYCERIDE:VLDL CHOLESTEROL RATIO.THIS FACTOR VARIES BY MEASURED TRIGLYCERIDE AND NON-HDLCHOLESTEROL CONCENTRATIONS WITH INCREASED CALCULATED LDL SEENIN HIGHER TRIGLYCERIDE OR LOWER NON-HDL SPECIMENS. FOR MOREINFORMATION, SEE CLIENT ANNOUNCEMENT AT [email or web address] RISK RATIO LDL/HDL (test code = 2238) 2.43 RATIO <3.55 COMPREHENSIVE METABOLIC [id number] 05:55:17* Test Item Value Reference Range Interpretation Comme nts GLUCOSE (test code = 2216) 90 MG/DL 70-99 BUN (test code = 2207) 12 MG/DL 6-20 CREATININE (test code = 221) 0.99 MG/DL 0.80-1.40 eGFR (2020 CKD-EPI) (test co de = 67178) 94 ML/MIN/1.73 >60 CALC BUN/CREAT (test code = 2235) 12 RATIO 6-28 SODIUM (test code = 223) 140 MEQ/L 133-146 POTASSIUM (test code = 2228) 4.3 MEQ/L 3.5-5.4 CHLORIDE (test code = 2214) 103 MEQ/L 95-107 CARBON DIOXIDE (test code = 6) 23 MEQ/L 19-31 CALCIUM (test code = 2209) 9.4 MG/DL 8.5-10.5 PROTEIN, TOTAL (test code = 222) 7.5 G/DL 6.1-8.3 ALBUMIN (test code = 2200) 4.8 G/DL 3.5-5.2 CALC GLOBULIN (test code = 2240) 2.7 G/DL 1.9-3.7 CALC A/G RATIO (test code = 2234) 1.8 RATIO 1.0-2.6 BILIRUBIN, TOTAL (test code = 2206) 0.5 MG/DL <=1.2 ALKALINE PHOSPHATASE (test code = 2204) 64 U/L 40-118 AST (test code = 2218) 18 U/L 9-50 ALT (test code = 2219) 12 U/L 5-50 HERPES SIMPLEX 1/2 AB, IgG [id number] 04:19:27* Test Item Value Reference Range Interpretation Comme nts HERPES SIMPLEX 1 AB, IgG (test code = 39662) 6.960 INDEX SEE BELOW H INTERPRETATION U NITS RANGE ----- ----- NON-REACTIVE INDEX <1.000 REACTIVE INDEX >=1.000 HERPES SIMPLEX 2 AB, IgG (test code = 53074) 0.073 INDEX SEE BELOW INTERPRETATION U NITS RANGE ----- ----- NON-REACTIVE INDEX <1.000 REACTIVE INDEX >=1.000 UNLESS OTHERWISE INDICATED, ALL TESTING PERFORMED AT [facility] [address] [place] [id number] ERP ANALYST: SHIELA LANDERS M.D. [place] NUMBER [id number] [facility] [place]. [id number] HIV 1/2 4TH GEN, RFLX [id number] 04:19:27* Test Item Value Reference Range Interpretation Comme nts HIV 1/2 4TH GEN, RFLX CONF ( test code = 3514) NON-REACTIVE NON-REACTIVE RPR REFLEX TO T. PALLIDUM - [id number] 03:49:31* Test Item Value Reference Range Interpretation Comme nts RPR (test code = 49580) NON-REACTIVE NON-REACTIVE RPR TITER (test code = 3500) NOT INDIC. TITER NOT INDIC. HEMOGLOBIN [id number] 03:10:53* Test Item Value Reference Range Interpretation Comme nts HEMOGLOBIN A1c (test code = 50682) 5.2 % 4.2-5.6 CBC W/AUTO DIFF WITH [id number] 02:37:37* Test Item Value Reference Range Interpretation Comme nts WBC (test code = 1001) 6.9 K/UL 3.5-11.0 RBC (test code = 1002) 5.07 M/UL 4.50-6.10 HEMOGLOBIN (test code = 1003) 15.4 G/DL 13.5-17.0 HEMATOCRIT (test code = 1004) 44.8 % 40.0-51.0 MCV (test code = 1005) 88.4 fL 80.0-99.0 MCH (test code = 1006) 30.4 PG 25.0-33.0 MCHC (test code = 1007) 34.4 G/DL 31.0-36.0 RDW (test code = 1038) 13.1 % 11.5-15.0 NEUTROPHILS (test code = 1008) 48.2 % LYMPHOCYTES (test code = 1010) 40.3 % MONOCYTES (test code = 1011) 5.1 % EOSINOPHILS (test code = 1012) 5.5 % BASOPHILS (test code = 1013) 0.6 % IMMATURE GRANULOCYTES (test code = 1036) 0.3 % NUCLEATED RBCS (test code = 1065) 0.0 /100 WBC'S See_Comment [Automated messa ge] The system which generated this result transmitted reference range: 0.0. The reference range was not used to interpret this result as normal/abnormal. PLATELET COUNT (test code = 1015) 141 K/UL 130-400 ABSOLUTE NEUTROPHILS (test code = 1066) 3.30 K/UL 1.50-7.50 ABSOLUTE LYMPHOCYTES (test code = 1067) 2.76 K/UL 1.00-4.00 ABSOLUTE MONOCYTES (test code = 1068) 0.35 K/UL 0.20-1.00 ABSOLUTE EOSINOPHILS (test code = 1040) 0.38 K/UL 0.00-0.50 ABSOLUTE BASOPHILS (test code = 1069) 0.04 K/UL 0.00-0.20 ABS IMMATURE GRANULOCYTES (test code = 1020) 0.02 K/UL 0.00-0.10 ABS NUCLEATED RBCS (test code = 67581) 0.00 K/UL 0.00-0.11 CHLAMYDIA, AMPLIFIED, [id number] 00:00:00* Test Item Value Reference Range Interpretation Comme nts CHLAMYDIA, NAAT, URINE (test code = 60000) NEGATIVE Andrew VinesGC, AMPLIFIED, [id number] 00:00:00* Test Item Value Reference Range Interpretation Comme nts GONORRHEA, NAAT, URINE (test code = 40153) NEGATIVE Andrew VinesCBC W/AUTO [id number] 00:00:00* Test Item Value Reference Range Interpretation Comme nts WBC (test code = 1001) 6.9 K/UL RBC (test code = 1002) 5.07 M/UL HEMOGLOBIN (test code = 1003) 15.4 G/DL HEMATOCRIT (test code = 1004) 44.8 % MCV (test code = 1005) 88.4 fL MCH (test code = 1006) 30.4 PG MCHC (test code = 1007) 34.4 G/DL RDW (test code = 1038) 13.1 % NEUTROPHILS (test code = 1008) 48.2 % LYMPHOCYTES (test code = 1010) 40.3 % MONOCYTES (test code = 1011) 5.1 % EOSINOPHILS (test code = 1012) 5.5 % BASOPHILS (test code = 1013) 0.6 % IMMATURE GRANULOCYTES (test code = 1036) 0.3 % NUCLEATED RBCS (test code = 1065) 0.0 /100WBC'S PLATELET COUNT (test code = 1015) 141 K/UL ABSOLUTE NEUTROPHILS (test c ode = 1066) 3.30 K/UL ABSOLUTE LYMPHOCYTES (test c ode = 1067) 2.76 K/UL ABSOLUTE MONOCYTES (test cod e = 1068) 0.35 K/UL ABSOLUTE EOSINOPHILS (test c ode = 1040) 0.38 K/UL ABSOLUTE BASOPHILS (test cod e = 1069) 0.04 K/UL ABS IMMATURE GRANULOCYTES (t est code = 1020) 0.02 K/UL ABS NUCLEATED RBCS (test cod e = 68075) 0.00 K/UL Andrew VinesHEMOGLOBIN [id number] 00:00:00* Test Item Value Reference Range Interpretation Comme nts HEMOGLOBIN A1c (test code = 17360) 5.2 % nAdrew VinesLIPID [id number] 00:00:00* Test Item Value Reference Range Interpretation Comme nts CHOLESTEROL (test code = 2210) 154 MG/DL TRIGLYCERIDES (test code = 2232) 79 MG/DL HDL CHOLESTEROL (test code = 2220) 40 MG/DL CALC LDL CHOL (test code = 2237) 97 MG/DL RISK RATIO LDL/HDL (test cod e = 2238) 2.43 RATIO Andrew VinesCOMPREHENSIVE METABOLIC [id number] 00:00:00* Test Item Value Reference Range Interpretation Comme nts GLUCOSE (test code = 2217) 90 MG/DL BUN (test code = 2208) 12 MG/DL CREATININE (test code = 2214) 0.99 MG/DL eGFR (2020 CKD-EPI) (test co de = 82144) 94 ML/MIN/1.73 CALC BUN/CREAT (test code = 2235) 12 RATIO SODIUM (test code = 2231) 140 MEQ/L POTASSIUM (test code = 2228) 4.3 MEQ/L CHLORIDE (test code = 2215) 103 MEQ/L CARBON DIOXIDE (test code = 2206) 23 MEQ/L CALCIUM (test code = 2209) 9.4 MG/DL PROTEIN, TOTAL (test code = 2229) 7.5 G/DL ALBUMIN (test code = 2201) 4.8 G/DL CALC GLOBULIN (test code = 2240) 2.7 G/DL CALC A/G RATIO (test code = 2234) 1.8 RATIO BILIRUBIN, TOTAL (test code = 2207) 0.5 MG/DL ALKALINE PHOSPHATASE (test code = 2204) 64 U/L AST (test code = 2218) 18 U/L ALT (test code = 2219) 12 U/L Andrew VinesHIV 1/2 4TH GEN, RFLX [id number] 00:00:00* Test Item Value Reference Range Interpretation Comme nts HIV 1/2 4TH GEN, RFLX CONF ( test code = 3514) NON-REACTIVE Andrew VinesRPR REFLEX TO T. PALLIDUM - [id number] 00:00:00* Test Item Value Reference Range Interpretation Comme nts RPR (test code = 51621) NON-REACTIVE RPR TITER (test code = 3500) NOT INDIC. TITER Andrew VinseHERPES SIMPLEX AB, [id number] 00:00:00* Test Item Value Reference Range Interpretation Comme nts HERPES SIMPLEX AB, IgM (test code = 88794) 0.56 INDEX Andrew VinesHERPES SIMPLEX 1/2 ANTIBODY, [id number] 00:00:00* Test Item Value Reference Range Interpretation Comme nts HERPES SIMPLEX 1 AB, IgG (te st code = 26848) 6.960 INDEX HERPES SIMPLEX 2 AB, IgG (te st code = 59936) 0.073 INDEX Andrew VinesCHLAMYDIA, AMPLIFIED, [id number] 00:00:00* Test Item Value Reference Range Interpretation Comme nts CHLAMYDIA, NAAT, URINE (test code = 72725) NEGATIVE Andrew VinesGC, AMPLIFIED, [id number] 00:00:00* Test Item Value Reference Range Interpretation Comme nts GONORRHEA, NAAT, URINE (test code = 26247) NEGATIVE Andrew VinesCBC W/AUTO [id number] 00:00:00* Test Item Value Reference Range Interpretation Comme nts WBC (test code = 1001) 6.9 K/UL RBC (test code = 1002) 5.07 M/UL HEMOGLOBIN (test code = 1003) 15.4 G/DL HEMATOCRIT (test code = 1004) 44.8 % MCV (test code = 1005) 88.4 fL MCH (test code = 1006) 30.4 PG MCHC (test code = 1007) 34.4 G/DL RDW (test code = 1038) 13.1 % NEUTROPHILS (test code = 1008) 48.2 % LYMPHOCYTES (test code = 1010) 40.3 % MONOCYTES (test code = 1011) 5.1 % EOSINOPHILS (test code = 1012) 5.5 % BASOPHILS (test code = 1013) 0.6 % IMMATURE GRANULOCYTES (test code = 1036) 0.3 % NUCLEATED RBCS (test code = 1065) 0.0 /100WBC'S PLATELET COUNT (test code = 1015) 141 K/UL ABSOLUTE NEUTROPHILS (test c ode = 1066) 3.30 K/UL ABSOLUTE LYMPHOCYTES (test c ode = 1067) 2.76 K/UL ABSOLUTE MONOCYTES (test cod e = 1068) 0.35 K/UL ABSOLUTE EOSINOPHILS (test c ode = 1040) 0.38 K/UL ABSOLUTE BASOPHILS (test cod e = 1069) 0.04 K/UL ABS IMMATURE GRANULOCYTES (t est code = 1020) 0.02 K/UL ABS NUCLEATED RBCS (test cod e = 28148) 0.00 K/UL Andrew VinesHEMOGLOBIN [id number] 00:00:00* Test Item Value Reference Range Interpretation Comme nts HEMOGLOBIN A1c (test code = 83194) 5.2 % Andrew VinesLIPID [id number] 00:00:00* Test Item Value Reference Range Interpretation Comme nts CHOLESTEROL (test code = 2210) 154 MG/DL TRIGLYCERIDES (test code = 2232) 79 MG/DL HDL CHOLESTEROL (test code = 2220) 40 MG/DL CALC LDL CHOL (test code = 2237) 97 MG/DL RISK RATIO LDL/HDL (test cod e = 2238) 2.43 RATIO Andrew VinesCOMPREHENSIVE METABOLIC [id number] 00:00:00* Test Item Value Reference Range Interpretation Comme nts GLUCOSE (test code = 2217) 90 MG/DL BUN (test code = 2208) 12 MG/DL CREATININE (test code = 2214) 0.99 MG/DL eGFR (2020 CKD-EPI) (test co de = 93817) 94 ML/MIN/1.73 CALC BUN/CREAT (test code = 2235) 12 RATIO SODIUM (test code = 2231) 140 MEQ/L POTASSIUM (test code = 2228) 4.3 MEQ/L CHLORIDE (test code = 2215) 103 MEQ/L CARBON DIOXIDE (test code = 2206) 23 MEQ/L CALCIUM (test code = 2209) 9.4 MG/DL PROTEIN, TOTAL (test code = 2229) 7.5 G/DL ALBUMIN (test code = 2201) 4.8 G/DL CALC GLOBULIN (test code = 2240) 2.7 G/DL CALC A/G RATIO (test code = 2234) 1.8 RATIO BILIRUBIN, TOTAL (test code = 2207) 0.5 MG/DL ALKALINE PHOSPHATASE (test code = 2204) 64 U/L AST (test code = 2218) 18 U/L ALT (test code = 2219) 12 U/L Andrew VinesHIV 1/2 4TH GEN, RFLX [id number] 00:00:00* Test Item Value Reference Range Interpretation Comme nts HIV 1/2 4TH GEN, RFLX CONF ( test code = 3514) NON-REACTIVE Andrew VinesRPR REFLEX TO T. PALLIDUM - [id number] 00:00:00* Test Item Value Reference Range Interpretation Comme nts RPR (test code = 07947) NON-REACTIVE RPR TITER (test code = 3500) NOT INDIC. TITER Andrew VinesHERPES SIMPLEX AB, [id number] 00:00:00* Test Item Value Reference Range Interpretation Comme nts HERPES SIMPLEX AB, IgM (test code = 64675) 0.56 INDEX Andrew VinesHERPES SIMPLEX 1/2 ANTIBODY, [id number] 00:00:00* Test Item Value Reference Range Interpretation Comme nts HERPES SIMPLEX 1 AB, IgG (te st code = 20983) 6.960 INDEX HERPES SIMPLEX 2 AB, IgG (te st code = 86803) 0.073 INDEX Andrew VinesCHLAMYDIA, AMPLIFIED, [id number] 00:00:00* Test Item Value Reference Range Interpretation Comme nts CHLAMYDIA, NAAT, URINE (test code = 49240) NEGATIVE Andrew VinesGC, AMPLIFIED, [id number] 00:00:00* Test Item Value Reference Range Interpretation Comme nts GONORRHEA, NAAT, URINE (test code = 32459) NEGATIVE Andrew VinesCBC W/AUTO [id number] 00:00:00* Test Item Value Reference Range Interpretation Comme nts WBC (test code = 1001) 6.9 K/UL RBC (test code = 1002) 5.07 M/UL HEMOGLOBIN (test code = 1003) 15.4 G/DL HEMATOCRIT (test code = 1004) 44.8 % MCV (test code = 1005) 88.4 fL MCH (test code = 1006) 30.4 PG MCHC (test code = 1007) 34.4 G/DL RDW (test code = 1038) 13.1 % NEUTROPHILS (test code = 1008) 48.2 % LYMPHOCYTES (test code = 1010) 40.3 % MONOCYTES (test code = 1011) 5.1 % EOSINOPHILS (test code = 1012) 5.5 % BASOPHILS (test code = 1013) 0.6 % IMMATURE GRANULOCYTES (test code = 1036) 0.3 % NUCLEATED RBCS (test code = 1065) 0.0 /100WBC'S PLATELET COUNT (test code = 1015) 141 K/UL ABSOLUTE NEUTROPHILS (test c ode = 1066) 3.30 K/UL ABSOLUTE LYMPHOCYTES (test c ode = 1067) 2.76 K/UL ABSOLUTE MONOCYTES (test cod e = 1068) 0.35 K/UL ABSOLUTE EOSINOPHILS (test c ode = 1040) 0.38 K/UL ABSOLUTE BASOPHILS (test cod e = 1069) 0.04 K/UL ABS IMMATURE GRANULOCYTES (t est code = 1020) 0.02 K/UL ABS NUCLEATED RBCS (test cod e = 60399) 0.00 K/UL Andrew VinesHEMOGLOBIN [id number] 00:00:00* Test Item Value Reference Range Interpretation Comme nts HEMOGLOBIN A1c (test code = 14359) 5.2 % Andrew VinesLIPID [id number] 00:00:00* Test Item Value Reference Range Interpretation Comme nts CHOLESTEROL (test code = 2210) 154 MG/DL TRIGLYCERIDES (test code = 2232) 79 MG/DL HDL CHOLESTEROL (test code = 2220) 40 MG/DL CALC LDL CHOL (test code = 2237) 97 MG/DL RISK RATIO LDL/HDL (test cod e = 2238) 2.43 RATIO Andrew VinesCOMPREHENSIVE METABOLIC [id number] 00:00:00* Test Item Value Reference Range Interpretation Comme nts GLUCOSE (test code = 2217) 90 MG/DL BUN (test code = 2208) 12 MG/DL CREATININE (test code = 2214) 0.99 MG/DL eGFR (2020 CKD-EPI) (test co de = 54547) 94 ML/MIN/1.73 CALC BUN/CREAT (test code = 2235) 12 RATIO SODIUM (test code = 2231) 140 MEQ/L POTASSIUM (test code = 2228) 4.3 MEQ/L CHLORIDE (test code = 2215) 103 MEQ/L CARBON DIOXIDE (test code = 2206) 23 MEQ/L CALCIUM (test code = 2209) 9.4 MG/DL PROTEIN, TOTAL (test code = 2229) 7.5 G/DL ALBUMIN (test code = 2201) 4.8 G/DL CALC GLOBULIN (test code = 2240) 2.7 G/DL CALC A/G RATIO (test code = 2234) 1.8 RATIO BILIRUBIN, TOTAL (test code = 2207) 0.5 MG/DL ALKALINE PHOSPHATASE (test code = 2204) 64 U/L AST (test code = 2218) 18 U/L ALT (test code = 2219) 12 U/L Andrew VinesHIV 1/2 4TH GEN, RFLX [id number] 00:00:00* Test Item Value Reference Range Interpretation Comme nts HIV 1/2 4TH GEN, RFLX CONF ( test code = 3514) NON-REACTIVE Andrew VinesRPR REFLEX TO T. PALLIDUM - [id number] 00:00:00* Test Item Value Reference Range Interpretation Comme nts RPR (test code = 60120) NON-REACTIVE RPR TITER (test code = 3500) NOT INDIC. TITER Andrew VinesHERPES SIMPLEX AB, [id number] 00:00:00* Test Item Value Reference Range Interpretation Comme nts HERPES SIMPLEX AB, IgM (test code = 06218) 0.56 INDEX Andrew VinesHERPES SIMPLEX 1/2 ANTIBODY, [id number] 00:00:00* Test Item Value Reference Range Interpretation Comme nts HERPES SIMPLEX 1 AB, IgG (te st code = 01518) 6.960 INDEX HERPES SIMPLEX 2 AB, IgG (te st code = 09970) 0.073 INDEX Andrew F AustinCT/NG, NAAT, [id number] 15:31:35* Test Item Value Reference Range Interpretation Comme nts CHLAMYDIA, NAAT, URINE (test code = 26503) NEGATIVE NEGATIVE Testing is perfo rmed with Serge VALERIO 6800/8800 systems usingreal-time polymerase chain reaction (PCR) method. A negative result does not exclude low level infection, specimensampling error, or collection error. GONORRHEA, NAAT, URINE (test code = 04964) NEGATIVE NEGATIVE Testing is perfo rmed with Serge VALERIO 6800/8800 systems usingreal-time polymerase chain reaction (PCR) method. A negative result does not exclude low level infection, specimensampling error, or collection error. CT/NG, TMA, [id number] 00:00:00* Test Item Value Reference Range Interpretation Comme nts CHLAMYDIA, NAAT, URINE (test code = 45886) NEGATIVE GONORRHEA, NAAT, URINE (test code = 69258) NEGATIVE Andrew F AustinCT/NG, TMA, [id number] 00:00:00* Test Item Value Reference Range Interpretation Comme nts CHLAMYDIA, NAAT, URINE (test code = 12608) NEGATIVE GONORRHEA, NAAT, URINE (test code = 48881) NEGATIVE Andrew F AustinCT/NG, TMA, [id number] 00:00:00* Test Item Value Reference Range Interpretation Comme nts CHLAMYDIA, NAAT, URINE (test code = 92095) NEGATIVE GONORRHEA, NAAT, URINE (test code = 53185) NEGATIVE Andrew F AustinCT/NG, TMA, [id number] 00:00:00* Test Item Value Reference Range Interpretation Comme nts CHLAMYDIA, NAAT, URINE (test code = 21714) NEGATIVE GONORRHEA, NAAT, URINE (test code = 32044) NEGATIVE Andrew F AustinCT ABDOMEN PELVIS W [id number] 05:53:20EXAM: CT ABDOMEN PELVIS W CONTRAST ORDERING CLINICIAN: ? ?RAZIA ?GAVIN HISTORY: Abdominal Pain. COMPARISON: 04/27/2021 TECHNIQUE: CT of the abdomen and pelvis with IV contrast. Coronal andsagittalreformatted images were obtained. CT performed according to ALARAprinciples. TECHNICAL QUALITY: Adequate CT OF THE ABDOMEN WITH IV CONTRAST:The lung bases are clear. Small hiatal hernia. Stable hepatic cysts. ?The gallbladder is normal. Hypodense lesion in themedial superior splenic body is unchanged, likely a cyst. The pancreas isnormal. The adrenals are normal. ?There is a 12 mm cyst in the posteriorlower pole cortex of the left kidney (Hounsfield units 7). Additional smallsubcentimeter hypodensities in the cortex of the left kidney is too smallto characterize, but probably also represents The intraabdominal large andsmall bowel are normal. The appendix is seen in the right lower quadrantand is normal. The intra-abdominal vasculature is unremarkable. Incidentalnote made of a retroaorticleft renal vein. There is no free fluid. ?Thereis no free air or pathologic lymphadenopathy. CT OF THE PELVIS WITH IV CONTRAST:The rectum and sigmoid are normal. The distal ureters and bladder arenormal. ?There is no free fluid or pathologic lymphadenopathy in thepelvis. Prostate is normal in size.Soft tissues are unremarkable. Small Schmorl's nodes noted in the lowerthoracic spine. Minimal endplate spurring in the lumbar spine. There islikely transitional anatomy with sacralization of the L5 segment.[facility] WITH [id number] 04:04:02* Test Item Value Reference Range Interpretation Comme nts WBC (test code = 6690-2) 6.57 4.20-10.70 RBC (test code = 789-8) 4.61 4.26-5.52 HGB (test code = 718-7) 14.1 g/dL 12.2-16.4 HCT (test code = 4544-3) 39.6 % 38.4-49.3 MCV (test code = 787-2) 85.9 fL 81.7-95.6 MCH (test code = 785-6) 30.6 pg 26.1-32.7 MCHC (test code = 786-4) 35.6 g/dL 31.2-35.0 H RDW-SD (test code = 40539-0) 38.6 fL 38.5-51.6 RDW-CV (test code = 788-0) 12.5 % 12.1-15.4 PLT (test code = 777-3) 132 150-328 L MPV (test code = 73055-9) 11.0 fL 9.8-13.0 IPF % (test code = 0082337304) 6.2 % 1.2-10.7 Platelet count measured by fluorescence method. NRBC/100 WBC (test code = 3096200071) 0.0 0.0-10.0 NRBC x10^3 (test code = 3316346068) See_Comment [Automated [employer] ge] The system which generated this result transmitted reference range: 10*3/?L. The reference range was not used to interpret this result as normal/abnormal. GRAN MAT (NEUT) % (test code = 770-8) 57.4 % IMM GRAN % (test code = 2490346726) 0.80 % LYMPH % (test code = 736-9) 30.7 % MONO % (test code = 5905-5) 5.3 % EOS % (test code = 713-8) 5.2 % BASO % (test code = 706-2) 0.6 % GRAN MAT x10^3(ANC) (test code = 2342177310) 3.77 10*3/uL 1.99-6.95 IMM GRAN x10^3 (test code = 4893162046) 0.05 10*3/uL 0.00-0.06 LYMPH x10^3 (test code = 731-0) 2.02 10*3/uL 1.09-3.23 MONO x10^3 (test code = 742-7) 0.35 10*3/uL 0.36-1.02 L EOS x10^3 (test code = 711-2) 0.34 10*3/uL 0.06-0.53 BASO x10^3 (test code = 704-7) 0.04 10*3/uL 0.01-0.09 Lab Interpretation (test code = 29758-1) [facility]normal [facility] (00751)2023-07-23 04:03:21* Test Item Value Reference Range Interpretation Comme nts NA (test code = 6795061087) 140 mmol/L 135-145 K (test code = 8458631477) 4.1 mmol/L 3.5-5.0 CL (test code = 1900237635) 111 mmol/L 98-108 H CO2 TOTAL (test code = 6851851870) 26 mmol/L 23-31 AGAP (test code = 0201386374) 3 2-16 BUN (test code = 1627645019) 12 mg/dL 7-23 GLUCOSE (test code = 1508809013) 95 mg/dL 70-110 CREATININE (test code = 2160-0) 1.00 mg/dL 0.60-1.25 TOTAL BILI (test code = 9621856160) 0.6 mg/dL 0.1-1.1 CALCIUM (test code = 1525137445) 9.2 mg/dL 8.6-10.6 T PROTEIN (test code = 2419701788) 7.0 g/dL 6.3-8.2 ALBUMIN (test code = 7592491355) 4.1 g/dL 3.5-5.0 ALK PHOS (test code = 3682071229) 54 U/L 34-122 ALTv (test code = 1742-6) 13 U/L 5-50 AST(SGOT) (test code = 6205342861) 23 U/L 13-40 eGFR (test code = 35867-5) 92.8 mL/min/1.73m2 CKD-EPI eGFR (2020). Assuming creatinine has been stable day-to-day for at least three months, the eGFR indicates Category G1 (>= 90 mL/min/1.73 m2) Lab Interpretation (test code = 26293-6) [facility]normal [id number] 04:03:16* Test Item Value Reference Range Interpretation Comme nts LIPASE (test code = 3096411586) 68 U/L 0-220 Lab Interpretation (test cod e = 08410-2) Normal [facility] Club[facility] REFLEX TO T. PALLIDUM - [id number] 04:01:52* Test Item Value Reference Range Interpretation Comme nts RPR (test code = 87433) NON-REACTIVE NON-REACTIVE RPR TITER (test code = 3500) NOT INDIC. TITER NOT INDIC. HIV 1/2 4TH GEN, RFLX [id number] 03:30:08* Test Item Value Reference Range Interpretation Comme nts HIV 1/2 4TH GEN, RFLX CONF ( test code = 3514) NON-REACTIVE NON-REACTIVE HEPATITIS PANEL, [id number] 03:30:08* Test Item Value Reference Range Interpretation Comme nts HEPATITIS A IgM (test code = 33669) NON-REACTIVE NON-REACTIVE HEPATITIS B CORE IgM (test code = 4644) NON-REACTIVE NON-REACTIVE HEPATITIS B SURF AG (test code = 2739) NON-REACTIVE NON-REACTIVE HEPATITIS C ANTIBODY (test code = 4675) NON-REACTIVE NON-REACTIVE INTERPRETATION HEPATITIS A: (test code = 2552) (NOTE) Hepatitis A sero logy shows no evidence of acute hepatitis A. INTERPRETATION HEPATITIS B: (test code = 23030) (NOTE) Hepatitis B sero logy shows no evidence of acute hepatitis B andno indication of exposure to hepatitis B virus in the previous alex eight months. INTERPRETATION HEPATITIS C: (test code = 72437) (NOTE) Hepatitis C sero logy shows no evidence of exposure to hepatitisC virus at this time. It can take up to 12 months after exposure tothe hepatitis C virus for antibodies to become detectable in the blood in certain patients. UNLESS OTHERWISE INDICATED, ALL TESTING PERFORMED AT [facility] [address] [place] [address] ERP ANALYST: SHEILA LANDERS M.D. [place] NUMBER [id number] [facility] [place]. [id number] ACUTE HEPATITIS [id number] 00:00:00* Test Item Value Reference Range Interpretation Comme nts HEPATITIS A IgM (test code = 63584) NON-REACTIVE HEPATITIS B CORE IgM (test c ode = 4644) NON-REACTIVE HEPATITIS B SURF AG (test co de = 2739) NON-REACTIVE HEPATITIS C ANTIBODY (test c ode = 4675) NON-REACTIVE INTERPRETATION HEPATITIS A: (test code = 2552) (NOTE) INTERPRETATION HEPATITIS B: (test code = 80265) (NOTE) INTERPRETATION HEPATITIS C: (test code = 35737) (NOTE) Andrew VinesRPMarcia REFLEX TO T. PALLIDUM - [id number] 00:00:00* Test Item Value Reference Range Interpretation Comme nts RPR (test code = 28450) NON-REACTIVE RPR TITER (test code = 3500) NOT INDIC. TITER Andrew VinesHIV 1/2 4TH GEN, RFLX [id number] 00:00:00* Test Item Value Reference Range Interpretation Comme nts HIV 1/2 4TH GEN, RFLX CONF ( test code = 3514) NON-REACTIVE Andrew Gill AustinACUTE HEPATITIS [id number] 00:00:00* Test Item Value Reference Range Interpretation Comme nts HEPATITIS A IgM (test code = 91559) NON-REACTIVE HEPATITIS B CORE IgM (test c ode = 4644) NON-REACTIVE HEPATITIS B SURF AG (test co de = 2739) NON-REACTIVE HEPATITIS C ANTIBODY (test c ode = 4675) NON-REACTIVE INTERPRETATION HEPATITIS A: (test code = 2552) (NOTE) INTERPRETATION HEPATITIS B: (test code = 42402) (NOTE) INTERPRETATION HEPATITIS C: (test code = 92802) (NOTE) Andrew Gill AustinRPR REFLEX TO T. PALLIDUM - [id number] 00:00:00* Test Item Value Reference Range Interpretation Comme nts RPR (test code = 11518) NON-REACTIVE RPR TITER (test code = 3500) NOT INDIC. TITER Andrew VinesHIV 1/2 4TH GEN, RFLX [id number] 00:00:00* Test Item Value Reference Range Interpretation Comme nts HIV 1/2 4TH GEN, RFLX CONF ( test code = 3514) NON-REACTIVE Andrew VinesACUTE HEPATITIS [id number] 00:00:00* Test Item Value Reference Range Interpretation Comme nts HEPATITIS A IgM (test code = 66923) NON-REACTIVE HEPATITIS B CORE IgM (test c ode = 4644) NON-REACTIVE HEPATITIS B SURF AG (test co de = 2739) NON-REACTIVE HEPATITIS C ANTIBODY (test c ode = 4675) NON-REACTIVE INTERPRETATION HEPATITIS A: (test code = 2552) (NOTE) INTERPRETATION HEPATITIS B: (test code = 74152) (NOTE) INTERPRETATION HEPATITIS C: (test code = 61351) (NOTE) Andrew Gill AustinRPR REFLEX TO T. PALLIDUM - [id number] 00:00:00* Test Item Value Reference Range Interpretation Comme nts RPR (test code = 56751) NON-REACTIVE RPR TITER (test code = 3500) NOT INDIC. TITER Andrew VinesHIV 1/2 4TH GEN, RFLX [id number] 00:00:00* Test Item Value Reference Range Interpretation Comme nts HIV 1/2 4TH GEN, RFLX CONF ( test code = 3514) NON-REACTIVE Andrew VinesACUTE HEPATITIS [id number] 00:00:00* Test Item Value Reference Range Interpretation Comme nts HEPATITIS A IgM (test code = 81309) NON-REACTIVE HEPATITIS B CORE IgM (test c ode = 4644) NON-REACTIVE HEPATITIS B SURF AG (test co de = 2739) NON-REACTIVE HEPATITIS C ANTIBODY (test c ode = 4675) NON-REACTIVE INTERPRETATION HEPATITIS A: (test code = 2552) (NOTE) INTERPRETATION HEPATITIS B: (test code = 37860) (NOTE) INTERPRETATION HEPATITIS C: (test code = 47002) (NOTE) Andrew VinesRPR REFLEX TO T. PALLIDUM - [id number] 00:00:00* Test Item Value Reference Range Interpretation Comme nts RPR (test code = 44874) NON-REACTIVE RPR TITER (test code = 3500) NOT INDIC. TITER Andrew VinesHIV 1/2 4TH GEN, RFLX [id number] 00:00:00* Test Item Value Reference Range Interpretation Comme nts HIV 1/2 4TH GEN, RFLX CONF ( test code = 3514) NON-REACTIVE Andrew VinesCULTURE, [id number] 17:10:00SPECIMEN NUMBER: [id number] CULTURE, URINE SPECIMEN NUMBER: [id number] SPECIMEN COMMENT: URINE SOURCE: URINE REPORT STATUS: FINAL ISOLATE NUMBER 1: ORGANISM: 11/19/2022 10-50,000 CFU/ML ENTEROCOCCUS SPECIES (GROUP D) IDENTIFICATION: 11/20/2022 ENTEROCOCCUS SPECIES (GROUP D) ENTEROCOCCUS SP. AMPICILLIN SENSITIVE <=2CIPROFLOXACIN SENSITIVE <=1LEVOFLOXACIN SENSITIVE 1NITROFURANTOIN SENSITIVE <=32TETRACYCLINE RESISTANT >8VANCOMYCIN SENSITIVE 2 NOTE: NUMBERS DISPLAYED REPRESENT MINIMUM INHIBITORY CONCENTRATION (GONZALES) WHICH IS EXPRESSED IN MCG/ML. CULTURE, [id number] 00:00:00* Test Item Value Reference Range Interpretation Comme nts CULTURE, URINE (test code = 07939) SPECIMEN NUMBER: [id number] nAdrew VinesCULTURE, [id number] 00:00:00* Test Item Value Reference Range Interpretation Comme nts CULTURE, URINE (test code = 89081) SPECIMEN NUMBER: [id number] Andrew VinesCULTURE, [id number] 00:00:00* Test Item Value Reference Range Interpretation Comme nts CULTURE, URINE (test code = 95709) SPECIMEN NUMBER: [id number] Andrwe VinesCULTURE, [id number] 00:00:00* Test Item Value Reference Range Interpretation Comme nts CULTURE, URINE (test code = 01747) SPECIMEN NUMBER: [id number] Andrew VinesCT/NG, NAAT, [id number] 20:49:48* Test Item Value Reference Range Interpretation Comme nts CHLAMYDIA, NAAT, URINE (test code = 14474) NEGATIVE NEGATIVE Testing is perfo rmed with TIM GroupAS 6800/8800 systems usingreal-time polymerase chain reaction (PCR) method. A negative result does not exclude low level infection, specimensampling error, or collection error. GONORRHEA, NAAT, URINE (test code = 29353) NEGATIVE NEGATIVE Testing is perfo rmed with Serge VALERIO 6800/8800 systems usingreal-time polymerase chain reaction (PCR) method. A negative result does not exclude low level infection, specimensampling error, or collection error. TRICHOMONAS, NAAT, MALE UR/[id number] 19:00:11* Test Item Value Reference Range Interpretation Comme nts TRICHOMONAS, NAAT (test code = 30255) NEGATIVE NEGATIVE The performance of this assay has not been specifically approved bythe FDA for the ASSIA PCR media swab collection device from maleurethral sources. The performance characteristics for these deviceshave been validated by [facility] CPL isauthorized under the Clinical Laboratory Improvement Amendments ji0605 (CLIA) as qualified to perform high complexity testing. Testing is performed with the [employer]0/8800 systems usingreal-time Polymerase Chain Reaction (PCR) method The performance of this assay has not been specifically approved bythe FDA for the Serge valerio PCR media swab collection device from maleurethral sources. The performance characteristics for these deviceshave been validated by [facility] CPL isauthorized under the Clinical Laboratory Improvement Amendments sy4965 (CLIA) as qualified to perform high complexity testing. Testing is performed with the Serge Valerio 6800/8800 systems usingreal-time Polymerase Chain Reaction (PCR) method A negative result does not exclude low level infection, specimensampling error, or collection error. SOURCE (test code = 63702) urine HERPES SIMPLEX AB, [id number] 13:59:27* Test Item Value Reference Range Interpretation Comme nts HERPES SIMPLEX AB, IgM (test code = 72603) 0.58 INDEX SEE BELOW INTERPRETATION U NITS RANGE ----- ----- NEGATIVE INDEX <=0.89 EQUIVOCAL INDEX 0.90-1.09 POSITIVE INDEX >=1.10 HERPES SIMPLEX 1/2 AB, IgG [id number] 05:12:09* Test Item Value Reference Range Interpretation Comme nts HERPES SIMPLEX 1 AB, IgG (test code = 39454) 6.510 INDEX SEE BELOW H INTERPRETATION U NITS RANGE ----- ----- NON-REACTIVE INDEX <1.000 REACTIVE INDEX >=1.000 HERPES SIMPLEX 2 AB, IgG (test code = 36722) 0.076 INDEX SEE BELOW INTERPRETATION U NITS RANGE ----- ----- NON-REACTIVE INDEX <1.000 REACTIVE INDEX >=1.000 HIV 1/2 4TH GEN, RFLX [id number] 05:12:09* Test Item Value Reference Range Interpretation Comme nts HIV 1/2 4TH GEN, RFLX CONF ( test code = 3514) NON-REACTIVE NON-REACTIVE HEPATITIS PANEL, [id number] 05:12:09* Test Item Value Reference Range Interpretation Comme nts HEPATITIS A IgM (test code = 24834) NON-REACTIVE NON-REACTIVE HEPATITIS B CORE IgM (test code = 4644) NON-REACTIVE NON-REACTIVE HEPATITIS B SURF AG (test code = 2739) NON-REACTIVE NON-REACTIVE HEPATITIS C ANTIBODY (test code = 4675) NON-REACTIVE NON-REACTIVE INTERPRETATION HEPATITIS A: (test code = 2552) (NOTE) Hepatitis A serology shows no evidence of acute hepatitis A. INTERPRETATION HEPATITIS B: (test code = 06933) (NOTE) Hepatitis B serology shows no evidence of acute hepatitis B andno indication of exposure to hepatitis B virus in the previous alex eight months. INTERPRETATION HEPATITIS C: (test code = 89258) (NOTE) Hepatitis C serology shows no evidence of exposure to hepatitisC virus at this time. It can take up to 12 months after exposure tothe hepatitis C virus for antibodies to become detectable in the blood in certain patients. [id number] 03:47:09* Test Item Value Reference Range Interpretation Comme nts RPR RESULT (test code = 3501) NON-REACTIVE NON-REACTIVE RPR TITER (test code = 3500) NOT INDIC. TITER NOT INDIC. UNLESS OTHERWISE INDICATED, ALL TESTING PERFORMED AT [facility] [address] [place] [address] ERP ANALYST: SHIELA LANDERS M.D. [place] NUMBER [id number] [facility] [place]. [id number] HIV 1/2 4TH GEN, RFLX [id number] 00:00:00* Test Item Value Reference Range Interpretation Comme nts HIV 1/2 4TH GEN, RFLX CONF ( test code = 3514) NON-REACTIVE Andrew Jairo MohinderACUTE HEPATITIS [id number] 00:00:00* Test Item Value Reference Range Interpretation Comme nts HEPATITIS A IgM (test code = 71994) NON-REACTIVE HEPATITIS B CORE IgM (test c ode = 4644) NON-REACTIVE HEPATITIS B SURF AG (test co de = 2739) NON-REACTIVE HEPATITIS C ANTIBODY (test c ode = 4675) NON-REACTIVE INTERPRETATION HEPATITIS A: (test code = 2552) (NOTE) INTERPRETATION HEPATITIS B: (test code = 52591) (NOTE) INTERPRETATION HEPATITIS C: (test code = 15966) (NOTE) Andrew VinesCT/NG, TMA, [id number] 00:00:00* Test Item Value Reference Range Interpretation Comme nts CHLAMYDIA, NAAT, URINE (test code = 94544) NEGATIVE GONORRHEA, NAAT, URINE (test code = 92718) NEGATIVE Andrew [id number] 00:00:00* Test Item Value Reference Range Interpretation Comme nts RPR RESULT (test code = 3501) NON-REACTIVE RPR TITER (test code = 3500) NOT INDIC. TITER Andrew BustamantePES SIMPLEX [id number] 00:00:00* Test Item Value Reference Range Interpretation Comme nts HERPES SIMPLEX AB, IgM (test code = 30523) 0.58 INDEX Andrew VinesHERPES SIMPLEX 1/2 [id number] 00:00:00* Test Item Value Reference Range Interpretation Comme nts HERPES SIMPLEX 1 AB, IgG (te st code = 90666) 6.510 INDEX HERPES SIMPLEX 2 AB, IgG (te st code = 15160) 0.076 INDEX Andrew VinesTRICHOMONAS, [id number] 00:00:00* Test Item Value Reference Range Interpretation Comme nts TRICHOMONAS, NAAT (test code = 66177) NEGATIVE SOURCE (test code = 64911) urine Andrew VinesHIV 1/2 4TH GEN, RFLX [id number] 00:00:00* Test Item Value Reference Range Interpretation Comme nts HIV 1/2 4TH GEN, RFLX CONF ( test code = 3514) NON-REACTIVE Andrwe VinesACUTE HEPATITIS [id number] 00:00:00* Test Item Value Reference Range Interpretation Comme nts HEPATITIS A IgM (test code = 43737) NON-REACTIVE HEPATITIS B CORE IgM (test c ode = 4644) NON-REACTIVE HEPATITIS B SURF AG (test co de = 2739) NON-REACTIVE HEPATITIS C ANTIBODY (test c ode = 4675) NON-REACTIVE INTERPRETATION HEPATITIS A: (test code = 2552) (NOTE) INTERPRETATION HEPATITIS B: (test code = 51085) (NOTE) INTERPRETATION HEPATITIS C: (test code = 74817) (NOTE) Andrew VinesCT/NG, TMA, [id number] 00:00:00* Test Item Value Reference Range Interpretation Comme nts CHLAMYDIA, NAAT, URINE (test code = 12894) NEGATIVE GONORRHEA, NAAT, URINE (test code = 75216) NEGATIVE Andrew [id number] 00:00:00* Test Item Value Reference Range Interpretation Comme nts RPR RESULT (test code = 3501) NON-REACTIVE RPR TITER (test code = 3500) NOT INDIC. TITER Andrew Montaño SIMPLEX [id number] 00:00:00* Test Item Value Reference Range Interpretation Comme nts HERPES SIMPLEX AB, IgM (test code = 32068) 0.58 INDEX Andrew BustamantePES SIMPLEX 1/2 [id number] 00:00:00* Test Item Value Reference Range Interpretation Comme nts HERPES SIMPLEX 1 AB, IgG (te st code = 63452) 6.510 INDEX HERPES SIMPLEX 2 AB, IgG (te st code = 75972) 0.076 INDEX Andrew VinesTRICHOMONAS, [id number] 00:00:00* Test Item Value Reference Range Interpretation Comme nts TRICHOMONAS, NAAT (test code = 04502) NEGATIVE SOURCE (test code = 27023) urine Andrew VinesHIV 1/2 4TH GEN, RFLX [id number] 00:00:00* Test Item Value Reference Range Interpretation Comme nts HIV 1/2 4TH GEN, RFLX CONF ( test code = 3514) NON-REACTIVE Andrew VinesACUTE HEPATITIS [id number] 00:00:00* Test Item Value Reference Range Interpretation Comme nts HEPATITIS A IgM (test code = 65939) NON-REACTIVE HEPATITIS B CORE IgM (test c ode = 4644) NON-REACTIVE HEPATITIS B SURF AG (test co de = 2739) NON-REACTIVE HEPATITIS C ANTIBODY (test c ode = 4675) NON-REACTIVE INTERPRETATION HEPATITIS A: (test code = 2552) (NOTE) INTERPRETATION HEPATITIS B: (test code = 49549) (NOTE) INTERPRETATION HEPATITIS C: (test code = 97436) (NOTE) Andrew VinesCT/NG, TMA, [id number] 00:00:00* Test Item Value Reference Range Interpretation Comme nts CHLAMYDIA, NAAT, URINE (test code = 08678) NEGATIVE GONORRHEA, NAAT, URINE (test code = 79547) NEGATIVE Andrew [id number] 00:00:00* Test Item Value Reference Range Interpretation Comme nts RPR RESULT (test code = 3501) NON-REACTIVE RPR TITER (test code = 3500) NOT INDIC. TITER Andrew Montaño SIMPLEX [id number] 00:00:00* Test Item Value Reference Range Interpretation Comme nts HERPES SIMPLEX AB, IgM (test code = 28608) 0.58 INDEX Andrew VinesHERPES SIMPLEX 1/2 [id number] 00:00:00* Test Item Value Reference Range Interpretation Comme nts HERPES SIMPLEX 1 AB, IgG (te st code = 33400) 6.510 INDEX HERPES SIMPLEX 2 AB, IgG (te st code = 54812) 0.076 INDEX Andrew VinesTRICHOMONAS, [id number] 00:00:00* Test Item Value Reference Range Interpretation Comme nts TRICHOMONAS, NAAT (test code = 36808) NEGATIVE SOURCE (test code = 67676) urine Andrew VinesHIV 1/2 4TH GEN, RFLX [id number] 00:00:00* Test Item Value Reference Range Interpretation Comme nts HIV 1/2 4TH GEN, RFLX CONF ( test code = 3514) NON-REACTIVE Andrew VinesACUTE HEPATITIS [id number] 00:00:00* Test Item Value Reference Range Interpretation Comme nts HEPATITIS A IgM (test code = 02474) NON-REACTIVE HEPATITIS B CORE IgM (test c ode = 4644) NON-REACTIVE HEPATITIS B SURF AG (test co de = 2739) NON-REACTIVE HEPATITIS C ANTIBODY (test c ode = 4675) NON-REACTIVE INTERPRETATION HEPATITIS A: (test code = 2552) (NOTE) INTERPRETATION HEPATITIS B: (test code = 55143) (NOTE) INTERPRETATION HEPATITIS C: (test code = 11529) (NOTE) Andrew VinesCT/NG, TMA, [id number] 00:00:00* Test Item Value Reference Range Interpretation Comme nts CHLAMYDIA, NAAT, URINE (test code = 65094) NEGATIVE GONORRHEA, NAAT, URINE (test code = 43454) NEGATIVE Andrew [id number] 00:00:00* Test Item Value Reference Range Interpretation Comme nts RPR RESULT (test code = 3501) NON-REACTIVE RPR TITER (test code = 3500) NOT INDIC. TITER Andrew BustamantePES SIMPLEX [id number] 00:00:00* Test Item Value Reference Range Interpretation Comme nts HERPES SIMPLEX AB, IgM (test code = 35719) 0.58 INDEX Andrew VinesHERPES SIMPLEX 1/2 [id number] 00:00:00* Test Item Value Reference Range Interpretation Comme nts HERPES SIMPLEX 1 AB, IgG (te st code = 83546) 6.510 INDEX HERPES SIMPLEX 2 AB, IgG (te st code = 56270) 0.076 INDEX Andrew VinesTRICHOMONAS, [id number] 00:00:00* Test Item Value Reference Range Interpretation Comme nts TRICHOMONAS, NAAT (test code = 93319) NEGATIVE SOURCE (test code = 22592) urine Andrew Gill AustinOCCULT BLD,FECAL,IMMUNOASSAY [id number] 10:54:19* Test Item Value Reference Range Interpretation Comme nts OCCULT BLD, FECAL (test code = 80982) NEGATIVE NEGATIVE UNLESS OTHER MULTANI INDICATED, ALL TESTING PERFORMED AT [facility] [address] [place] [address] ERP ANALYST: SHIELA LANDERS M.D. CLIA NUMBER [id number] [facility] [place] [place]. [id number] OCCULT BLD,FECAL,IMMUNOASSAY [facility] [id number] 00:00:00* Test Item Value Reference Range Interpretation Comme nts OCCULT BLD, FECAL (test code = 21343) NEGATIVE Andrew Gill AustinOCCULT BLD,FECAL,IMMUNOASSAY [id number] 00:00:00* Test Item Value Reference Range Interpretation Comme nts OCCULT BLD, FECAL (test code = 07787) NEGATIVE Andrew Gill AustinOCCULT BLD,FECAL,IMMUNOASSAY [id number] 00:00:00* Test Item Value Reference Range Interpretation Comme nts OCCULT BLD, FECAL (test code = 24045) NEGATIVE Andrew Gill AustinOCCULT BLD,FECAL,IMMUNOASSAY [id number] 00:00:00* Test Item Value Reference Range Interpretation Comme nts OCCULT BLD, FECAL (test code = 90056) NEGATIVE Andrew [id number] 03:27:48* Test Item Value Reference Range Interpretation Comme nts LIPASE (test code = 2058) 26 U/L 13-60 [id number] 03:27:48* Test Item Value Reference Range Interpretation Comme nts AMYLASE (test code = 2205) 35 U/L 28-100 UNLESS OTHERWISE INDICATED, ALL TESTING PERFORMED AT [facility] [address] [place] [id number] ERP ANALYST: SHIELA LANDERS M.D. CLIA NUMBER [id number] [facility] [place] [id number] 00:00:00* Test Item Value Reference Range Interpretation Comme nts LIPASE (test code = 2058) 26 U/L Andrew F [id number] 00:00:00* Test Item Value Reference Range Interpretation Comme nts AMYLASE (test code = 2205) 35 U/L Andrew F [id number] 00:00:00* Test Item Value Reference Range Interpretation Comme nts LIPASE (test code = 2058) 26 U/L Andrew F [id number] 00:00:00* Test Item Value Reference Range Interpretation Comme nts AMYLASE (test code = 2205) 35 U/L Andrew F [id number] 00:00:00* Test Item Value Reference Range Interpretation Comme nts LIPASE (test code = 2058) 26 U/L Andrew F [id number] 00:00:00* Test Item Value Reference Range Interpretation Comme nts AMYLASE (test code = 2205) 35 U/L Andrew F [id number] 00:00:00* Test Item Value Reference Range Interpretation Comme nts LIPASE (test code = 2058) 26 U/L Andrew F [id number] 00:00:00* Test Item Value Reference Range Interpretation Comme nts AMYLASE (test code = 2205) 35 U/L Andrew F AustinCHLAMYDIA, NAAT, [id number] 18:32:30* Test Item Value Reference Range Interpretation Comme nts CHLAMYDIA, NAAT, URINE (test code = 44408) NEGATIVE NEGATIVE Testing is perfo rmed with [employer] 6800/8800 systems usingreal-time polymerase chain reaction (PCR) method. A negative result does not exclude low level infection, specimensampling error, or collection error. GONORRHEA, NAAT, [id number] 18:32:30* Test Item Value Reference Range Interpretation Comme nts GONORRHEA, NAAT, URINE (test code = 76016) NEGATIVE NEGATIVE Testing is perfo rmed with Serge VALERIO 6800/8800 systems usingreal-time polymerase chain reaction (PCR) method. A negative result does not exclude low level infection, specimensampling error, or collection error. HERPES SIMPLEX AB, [id number] 13:53:23* Test Item Value Reference Range Interpretation Comme [facility] HERPES SIMPLEX AB, IgM (test code = 24482) 0.54 INDEX SEE BELOW INTERPRETATION UNITS RANGE ----- ----- NEGATIVE INDEX <=0.89 EQUIVOCAL INDEX 0.90-1.09 POSITIVE INDEX >=1.10 HIV 1/2 4TH GEN, RFLX [id number] 07:01:13* Test Item Value Reference Range Interpretation Comme [facility] HIV 1/2 4TH GEN, RFLX CONF ( test code = 3514) NON-REACTIVE NON-REACTIVE HEPATITIS PANEL, [id number] 07:01:13* Test Item Value Reference Range Interpretation Comme nts HEPATITIS A IgM (test code = 22426) NON-REACTIVE NON-REACTIVE HEPATITIS B CORE IgM (test code = 4644) NON-REACTIVE NON-REACTIVE HEPATITIS B SURF AG (test code = 2739) NON-REACTIVE NON-REACTIVE HEPATITIS C ANTIBODY (test code = 4675) NON-REACTIVE NON-REACTIVE INTERPRETATION HEPATITIS A: (test code = 2552) (NOTE) Hepatitis A serology shows no evidence of acute hepatitis A. INTERPRETATION HEPATITIS B: (test code = 90798) (NOTE) Hepatitis B serology shows no evidence of acute hepatitis B andno indication of exposure to hepatitis B virus in the previous alex eight months. INTERPRETATION HEPATITIS C: (test code = 12354) (NOTE) Hepatitis C serology shows no evidence of exposure to hepatitisC virus at this time. It can take up to 12 months after exposure tothe hepatitis C virus for antibodies to become detectable in the blood in certain patients. HERPES SIMPLEX 1/2 AB, IgG [id number] 07:01:13* Test Item Value Reference Range Interpretation Comme [facility] HERPES SIMPLEX 1 AB, IgG (test code = 32599) 7.520 INDEX SEE BELOW H INTERPRETATION U NITS RANGE ----- ----- NON-REACTIVE INDEX <1.000 REACTIVE INDEX >=1.000 HERPES SIMPLEX 2 AB, IgG (test code = 99451) 0.076 INDEX SEE BELOW INTERPRETATION U NITS RANGE ----- ----- NON-REACTIVE INDEX <1.000 REACTIVE INDEX >=1.000 [facility] has important pathology staff changes effective 08/04/2022. New pathology staff will provide uninterrupted, excellent patient care and clinical consultation. See URL: [email or web address]. UNLESS OTHERWISE INDICATED, ALL TESTING PERFORMED AT [facility] [address] [place] [id number] ERP ANALYST: SHIELA LANDERS M.D. [place] NUMBER [id number] [facility] [place]. [id number] RPR REFLEX TO T. PALLIDUM - [id number] 04:35:14* Test Item Value Reference Range Interpretation Comme nts RPR (test code = 17808) NON-REACTIVE NON-REACTIVE RPR TITER (test code = 3500) NOT INDIC. TITER NOT INDIC. CHLAMYDIA, AMPLIFIED, [id number] 00:00:00* Test Item Value Reference Range Interpretation Comme nts CHLAMYDIA, NAAT, URINE (test code = 09249) NEGATIVE Andrew VinesGC, AMPLIFIED, [id number] 00:00:00* Test Item Value Reference Range Interpretation Comme nts GONORRHEA, NAAT, URINE (test code = 45308) NEGATIVE Andrew VinesHERPES SIMPLEX [id number] 00:00:00* Test Item Value Reference Range Interpretation Comme nts HERPES SIMPLEX AB, IgM (test code = 67004) 0.54 INDEX Andrew VinesHERPES SIMPLEX 1/2 [id number] 00:00:00* Test Item Value Reference Range Interpretation Comme nts HERPES SIMPLEX 1 AB, IgG (te st code = 02672) 7.520 INDEX HERPES SIMPLEX 2 AB, IgG (te st code = 97074) 0.076 INDEX Andrew VinesHIV 1/2 4TH GEN, RFLX [id number] 00:00:00* Test Item Value Reference Range Interpretation Comme nts HIV 1/2 4TH GEN, RFLX CONF ( test code = 3514) NON-REACTIVE Andrew VinesRPR REFLEX TO T. PALLIDUM - [id number] 00:00:00* Test Item Value Reference Range Interpretation Comme nts RPR (test code = 54171) NON-REACTIVE RPR TITER (test code = 3500) NOT INDIC. TITER Andrew VinesACUTE HEPATITIS [id number] 00:00:00* Test Item Value Reference Range Interpretation Comme nts HEPATITIS A IgM (test code = 88499) NON-REACTIVE HEPATITIS B CORE IgM (test c ode = 4644) NON-REACTIVE HEPATITIS B SURF AG (test co de = 2739) NON-REACTIVE HEPATITIS C ANTIBODY (test c ode = 4675) NON-REACTIVE INTERPRETATION HEPATITIS A: (test code = 2552) (NOTE) INTERPRETATION HEPATITIS B: (test code = 00954) (NOTE) INTERPRETATION HEPATITIS C: (test code = 74485) (NOTE) Andrew VinesCHLAMYDIA, AMPLIFIED, [id number] 00:00:00* Test Item Value Reference Range Interpretation Comme nts CHLAMYDIA, NAAT, URINE (test code = 80323) NEGATIVE Andrew VinesGC, AMPLIFIED, [id number] 00:00:00* Test Item Value Reference Range Interpretation Comme nts GONORRHEA, NAAT, URINE (test code = 54075) NEGATIVE Andrew VinesHERPES SIMPLEX [id number] 00:00:00* Test Item Value Reference Range Interpretation Comme nts HERPES SIMPLEX AB, IgM (test code = 85224) 0.54 INDEX Andrew VinesHERPES SIMPLEX 1/2 [id number] 00:00:00* Test Item Value Reference Range Interpretation Comme nts HERPES SIMPLEX 1 AB, IgG (te st code = 09494) 7.520 INDEX HERPES SIMPLEX 2 AB, IgG (te st code = 37848) 0.076 INDEX Andrew VinesHIV 1/2 4TH GEN, RFLX [id number] 00:00:00* Test Item Value Reference Range Interpretation Comme nts HIV 1/2 4TH GEN, RFLX CONF ( test code = 3514) NON-REACTIVE Andrew VinesRPR REFLEX TO T. PALLIDUM - [id number] 00:00:00* Test Item Value Reference Range Interpretation Comme nts RPR (test code = 71066) NON-REACTIVE RPR TITER (test code = 3500) NOT INDIC. TITER Andrew VinesACUTE HEPATITIS [id number] 00:00:00* Test Item Value Reference Range Interpretation Comme nts HEPATITIS A IgM (test code = 74428) NON-REACTIVE HEPATITIS B CORE IgM (test c ode = 4644) NON-REACTIVE HEPATITIS B SURF AG (test co de = 2739) NON-REACTIVE HEPATITIS C ANTIBODY (test c ode = 4675) NON-REACTIVE INTERPRETATION HEPATITIS A: (test code = 2552) (NOTE) INTERPRETATION HEPATITIS B: (test code = 21027) (NOTE) INTERPRETATION HEPATITIS C: (test code = 18788) (NOTE) Andrew VinesCHLAMYDIA, AMPLIFIED, [id number] 00:00:00* Test Item Value Reference Range Interpretation Comme nts CHLAMYDIA, NAAT, URINE (test code = 87406) NEGATIVE Andrew VinesGC, AMPLIFIED, [id number] 00:00:00* Test Item Value Reference Range Interpretation Comme nts GONORRHEA, NAAT, URINE (test code = 38200) NEGATIVE Andrew VinesHERPES SIMPLEX [id number] 00:00:00* Test Item Value Reference Range Interpretation Comme nts HERPES SIMPLEX AB, IgM (test code = 46772) 0.54 INDEX Andrew VinesHERPES SIMPLEX 1/2 [id number] 00:00:00* Test Item Value Reference Range Interpretation Comme nts HERPES SIMPLEX 1 AB, IgG (te st code = 21033) 7.520 INDEX HERPES SIMPLEX 2 AB, IgG (te st code = 48644) 0.076 INDEX Andrew VinesHIV 1/2 4TH GEN, RFLX [id number] 00:00:00* Test Item Value Reference Range Interpretation Comme nts HIV 1/2 4TH GEN, RFLX CONF ( test code = 3514) NON-REACTIVE Andrew VinesRPR REFLEX TO T. PALLIDUM - [id number] 00:00:00* Test Item Value Reference Range Interpretation Comme nts RPR (test code = 72315) NON-REACTIVE RPR TITER (test code = 3500) NOT INDIC. TITER Andrew VinesACUTE HEPATITIS [id number] 00:00:00* Test Item Value Reference Range Interpretation Comme nts HEPATITIS A IgM (test code = 52217) NON-REACTIVE HEPATITIS B CORE IgM (test c ode = 4644) NON-REACTIVE HEPATITIS B SURF AG (test co de = 2739) NON-REACTIVE HEPATITIS C ANTIBODY (test c ode = 4675) NON-REACTIVE INTERPRETATION HEPATITIS A: (test code = 2552) (NOTE) INTERPRETATION HEPATITIS B: (test code = 00255) (NOTE) INTERPRETATION HEPATITIS C: (test code = 54954) (NOTE) Andrew VinesCHLAMYDIA, AMPLIFIED, [id number] 00:00:00* Test Item Value Reference Range Interpretation Comme nts CHLAMYDIA, NAAT, URINE (test code = 84838) NEGATIVE Andrew VinesGC, AMPLIFIED, [id number] 00:00:00* Test Item Value Reference Range Interpretation Comme nts GONORRHEA, NAAT, URINE (test code = 89462) NEGATIVE Andrew VinesHERPES SIMPLEX [id number] 00:00:00* Test Item Value Reference Range Interpretation Comme nts HERPES SIMPLEX AB, IgM (test code = 93881) 0.54 INDEX Andrew VinesHERPES SIMPLEX 1/2 [id number] 00:00:00* Test Item Value Reference Range Interpretation Comme nts HERPES SIMPLEX 1 AB, IgG (te st code = 05646) 7.520 INDEX HERPES SIMPLEX 2 AB, IgG (te st code = 44041) 0.076 INDEX Andrew VinesHIV 1/2 4TH GEN, RFLX [id number] 00:00:00* Test Item Value Reference Range Interpretation Comme nts HIV 1/2 4TH GEN, RFLX CONF ( test code = 3514) NON-REACTIVE Andrew VinesRPR REFLEX TO T. PALLIDUM - [id number] 00:00:00* Test Item Value Reference Range Interpretation Comme nts RPR (test code = 23615) NON-REACTIVE RPR TITER (test code = 3500) NOT INDIC. TITER Andrew VinesACUTE HEPATITIS [id number] 00:00:00* Test Item Value Reference Range Interpretation Comme nts HEPATITIS A IgM (test code = 47924) NON-REACTIVE HEPATITIS B CORE IgM (test c ode = 4644) NON-REACTIVE HEPATITIS B SURF AG (test co de = 2739) NON-REACTIVE HEPATITIS C ANTIBODY (test c ode = 4675) NON-REACTIVE INTERPRETATION HEPATITIS A: (test code = 2552) (NOTE) INTERPRETATION HEPATITIS B: (test code = 91429) (NOTE) INTERPRETATION HEPATITIS C: (test code = 20918) (NOTE) Andrew Gill [facility] WITH [id number] 16:21:34* Test Item Value Reference Range Interpretation Comme nts WBC (test code = 6690-2) See_Comment [Automated [employer]] The system which generated this result transmitted reference range: 4.20 - 10.70 10*3/?L. The reference range was not used to interpret this result as normal/abnormal. RBC (test code = 789-8) See_Comment [Automated [employer]] The system which generated this result transmitted reference range: 4.26 - 5.52 10*6/?L. The reference range was not used to interpret this result as normal/abnormal. HGB (test code = 718-7) 14.8 g/dL 12.2-16.4 HCT (test code = 4544-3) 42.9 % 38.4-49.3 MCV (test code = 787-2) 87.2 fL 81.7-95.6 MCH (test code = 785-6) 30.1 pg 26.1-32.7 MCHC (test code = 786-4) 34.5 g/dL 31.2-35.0 RDW-SD (test code = 84695-4) 39.9 fL 38.5-51.6 RDW-CV (test code = 788-0) 12.4 % 12.1-15.4 PLT (test code = 777-3) See_Comment L [Automated [employer]] The system which generated this result transmitted reference range: 150 - 328 10*3/?L. The reference range was not used to interpret this result as normal/abnormal. MPV (test code = 20690-6) 10.6 fL 9.8-13.0 IPF % (test code = 6735074233) 3.9 % 1.2-10.7 Platelet count measured by fluorescence method. NRBC/100 WBC (test code = 1469416637) See_Comment [Automated [employer] ssage] The system which generated this result transmitted reference range: 0.0 - 10.0 /100 WBCs. The reference range was not used to interpret this result as normal/abnormal. NRBC x10^3 (test code = 9194474405) <0.01 See_Comment [Automated messa ge] The system which generated this result transmitted reference range: 10*3/?L. The reference range was not used to interpret this result as normal/abnormal. GRAN MAT (NEUT) % (test code = 770-8) 45.9 % IMM GRAN % (test code = 5880765905) 0.20 % LYMPH % (test code = 736-9) 41.6 % MONO % (test code = 5905-5) 5.3 % EOS % (test code = 713-8) 6.5 % BASO % (test code = 706-2) 0.5 % GRAN MAT x10^3(ANC) (test code = 2939099770) 2.59 10*3/uL 1.99-6.95 IMM GRAN x10^3 (test code = 3731100642) <0.03 0.00-0.06 LYMPH x10^3 (test code = 731-0) 2.35 10*3/uL 1.09-3.23 MONO x10^3 (test code = 742-7) 0.30 10*3/uL 0.36-1.02 L EOS x10^3 (test code = 711-2) 0.37 10*3/uL 0.06-0.53 BASO x10^3 (test code = 704-7) 0.03 10*3/uL 0.01-0.09 Lab Interpretation (test code = 84491-4) [facility]normal [facility] (72416)2021-04-27 16:20:53* Test Item Value Reference Range Interpretation Comme nts NA (test code = 5265532782) 138 mmol/L 135-145 K (test code = 3321568579) 4.3 mmol/L 3.5-5.0 CL (test code = 4033862870) 104 mmol/L 98-108 CO2 TOTAL (test code = 0911275168) 28 mmol/L 23-31 AGAP (test code = 9857681262) 2-16 BUN (test code = 3074559823) 10 mg/dL 7-23 GLUCOSE (test code = 7616805196) 95 mg/dL 70-110 CREATININE (test code = 6044955999) 0.93 mg/dL 0.60-1.25 TOTAL BILI (test code = 2277341794) 1.1 mg/dL 0.1-1.1 CALCIUM (test code = 0463117933) 9.2 mg/dL 8.6-10.6 T PROTEIN (test code = 2809069903) 7.3 g/dL 6.3-8.2 ALBUMIN (test code = 9175590362) 4.2 g/dL 3.5-5.0 ALK PHOS (test code = 8578582051) 55 U/L 34-122 ALTv (test code = 1742-6) 21 U/L 5-50 AST(SGOT) (test code = 1109181988) 28 U/L 13-40 eGFR (test code = 9095800818) mL/min/1.73m2 ABA (test code = ABA) Association of [...] in imaging tests). [facility]21[facility] 16:20:33* Test Item Value Reference Range Interpretation Comme [facility] LIPASE (test code = 6057236578) 58 U/L 0-220 Lab Interpretation (test cod e = 12511-5) Normal [facility] [id number] 00:00:00* Test Item Value Reference Range Interpretation Comme [facility] HEMOGLOBIN A1c (test code = 70046) 5.0 % Andrew F MohinderTHYROID II PROFILE (T3U, T4, T7, TSH)2015-02-06 00:00:00* Test Item Value Reference Range Interpretation Comme [facility] T3 UPTAKE (test code = 2817) 27.9 % T4 (THYROXINE) (test code = 2819) 7.3 UG/DL CALCULATED T7 (FTI) (test co de = 2820) 2.04 TSH (test code = 2821) 0.7 UIU/ML Andrew VinesCOMPREHENSIVE METABOLIC [id number] 00:00:00* Test Item Value Reference Range Interpretation Comme nts GLUCOSE (test code = 2217) 77 MG/DL BUN (test code = 2208) 13 MG/DL CREATININE (test code = 2214) 1.1 MG/DL eGFR AMER. (test cod e = 94535) 90 ML/MIN/1.73 eGFR NON- AMER. (test code = 60838) 74 ML/MIN/1.73 CALCULATED BUN/CREAT (test code = 2235) 12 RATIO SODIUM (test code = 2231) 141 MEQ/L POTASSIUM (test code = 2228) 3.8 MEQ/L CHLORIDE (test code = 2215) 104 MEQ/L CARBON DIOXIDE (test code = 2206) 24 MEQ/L CALCIUM (test code = 2209) 9.7 MG/DL PROTEIN, TOTAL (test code = 2229) 7.2 G/DL ALBUMIN (test code = 2201) 4.7 G/DL CALCULATED GLOBULIN (test co de = 2240) 2.5 G/DL CALCULATED A/G RATIO (test code = 2234) 1.9 RATIO BILIRUBIN, TOTAL (test code = 2207) 0.5 MG/DL ALKALINE PHOSPHATASE (test code = 2204) 48 U/L SGOT (AST) (test code = 2218) 15 U/L SGPT (ALT) (test code = 2219) 10 U/L Andrew VinesLIPID [id number] 00:00:00* Test Item Value Reference Range Interpretation Comme nts CHOLESTEROL (test code = 2210) 152 MG/DL TRIGLYCERIDES (test code = 2232) 102 MG/DL HDL CHOLESTEROL (test code = 2220) 38 MG/DL CALCULATED LDL CHOL (test co de = 2237) 94 MG/DL RISK RATIO LDL/HDL (test cod e = 2238) 2.46 RATIO Andrew VinesCBC W/AUTO [id number] 00:00:00* Test Item Value Reference Range Interpretation Comme nts WBC (test code = 1001) 7.3 K/UL RBC (test code = 1002) 4.98 M/UL HEMOGLOBIN (test code = 1003) 14.6 G/DL HEMATOCRIT (test code = 1004) 44.2 % MCV (test code = 1005) 88.8 fL MCH (test code = 1006) 29.3 PG MCHC (test code = 1007) 33.0 G/DL RDW (test code = 1038) 14.6 % NEUTROPHILS (test code = 1008) 49 % LYMPHOCYTES (test code = 1010) 39 % MONOCYTES (test code = 1011) 5 % EOSINOPHILS (test code = 1012) 6 % PLATELET COUNT (test code = 1015) 147 K/UL Andrew VinesHEMOGLOBIN [id number] 00:00:00* Test Item Value Reference Range Interpretation Comme [facility] HEMOGLOBIN A1c (test code = 84989) 5.0 % Andrew VinesTHYROID II PROFILE (T3U, T4, T7, TSH)2015-02-06 00:00:00* Test Item Value Reference Range Interpretation Comme nts T3 UPTAKE (test code = 2817) 27.9 % T4 (THYROXINE) (test code = 2819) 7.3 UG/DL CALCULATED T7 (FTI) (test co de = 2820) 2.04 TSH (test code = 2821) 0.7 UIU/ML Andrew VinesCOMPREHENSIVE METABOLIC [id number] 00:00:00* Test Item Value Reference Range Interpretation Comme nts GLUCOSE (test code = 2217) 77 MG/DL BUN (test code = 2208) 13 MG/DL CREATININE (test code = 2214) 1.1 MG/DL eGFR AMER. (test cod e = 17456) 90 ML/MIN/1.73 eGFR NON- AMER. (test code = 14702) 74 ML/MIN/1.73 CALCULATED BUN/CREAT (test code = 2235) 12 RATIO SODIUM (test code = 2231) 141 MEQ/L POTASSIUM (test code = 2228) 3.8 MEQ/L CHLORIDE (test code = 2215) 104 MEQ/L CARBON DIOXIDE (test code = 2206) 24 MEQ/L CALCIUM (test code = 2209) 9.7 MG/DL PROTEIN, TOTAL (test code = 2229) 7.2 G/DL ALBUMIN (test code = 2201) 4.7 G/DL CALCULATED GLOBULIN (test co de = 2240) 2.5 G/DL CALCULATED A/G RATIO (test code = 2234) 1.9 RATIO BILIRUBIN, TOTAL (test code = 2207) 0.5 MG/DL ALKALINE PHOSPHATASE (test code = 2204) 48 U/L SGOT (AST) (test code = 2218) 15 U/L SGPT (ALT) (test code = 2219) 10 U/L Andrew VinesLIPID [id number] 00:00:00* Test Item Value Reference Range Interpretation Comme nts CHOLESTEROL (test code = 2210) 152 MG/DL TRIGLYCERIDES (test code = 2232) 102 MG/DL HDL CHOLESTEROL (test code = 2220) 38 MG/DL CALCULATED LDL CHOL (test co de = 223) 94 MG/DL RISK RATIO LDL/HDL (test cod e = 2238) 2.46 RATIO Andrew VinesCBC W/AUTO [id number] 00:00:00* Test Item Value Reference Range Interpretation Comme nts WBC (test code = 1001) 7.3 K/UL RBC (test code = 1002) 4.98 M/UL HEMOGLOBIN (test code = 1003) 14.6 G/DL HEMATOCRIT (test code = 1004) 44.2 % MCV (test code = 1005) 88.8 fL MCH (test code = 1006) 29.3 PG MCHC (test code = 1007) 33.0 G/DL RDW (test code = 1038) 14.6 % NEUTROPHILS (test code = 1008) 49 % LYMPHOCYTES (test code = 1010) 39 % MONOCYTES (test code = 1011) 5 % EOSINOPHILS (test code = 1012) 6 % PLATELET COUNT (test code = 1015) 147 K/UL Andrew VinesHEMOGLOBIN [id number] 00:00:00* Test Item Value Reference Range Interpretation Comme nts HEMOGLOBIN A1c (test code = 76839) 5.0 % Andrew VinesTHYROID II PROFILE (T3U, T4, T7, TSH)2015-02-06 00:00:00* Test Item Value Reference Range Interpretation Comme nts T3 UPTAKE (test code = 2817) 27.9 % T4 (THYROXINE) (test code = 2819) 7.3 UG/DL CALCULATED T7 (FTI) (test co de = 2820) 2.04 TSH (test code = 2821) 0.7 UIU/ML Andrew VinesCOMPREHENSIVE METABOLIC [id number] 00:00:00* Test Item Value Reference Range Interpretation Comme nts GLUCOSE (test code = 2217) 77 MG/DL BUN (test code = 2208) 13 MG/DL CREATININE (test code = 2214) 1.1 MG/DL eGFR AMER. (test cod e = 10731) 90 ML/MIN/1.73 eGFR NON- AMER. (test code = 63665) 74 ML/MIN/1.73 CALCULATED BUN/CREAT (test code = 2235) 12 RATIO SODIUM (test code = 2231) 141 MEQ/L POTASSIUM (test code = 2228) 3.8 MEQ/L CHLORIDE (test code = 2215) 104 MEQ/L CARBON DIOXIDE (test code = 2206) 24 MEQ/L CALCIUM (test code = 2209) 9.7 MG/DL PROTEIN, TOTAL (test code = 2229) 7.2 G/DL ALBUMIN (test code = 2201) 4.7 G/DL CALCULATED GLOBULIN (test co de = 2240) 2.5 G/DL CALCULATED A/G RATIO (test code = 2234) 1.9 RATIO BILIRUBIN, TOTAL (test code = 2207) 0.5 MG/DL ALKALINE PHOSPHATASE (test code = 2204) 48 U/L SGOT (AST) (test code = 2218) 15 U/L SGPT (ALT) (test code = 2219) 10 U/L Andrew VinesLIPID [id number] 00:00:00* Test Item Value Reference Range Interpretation Comme nts CHOLESTEROL (test code = 2210) 152 MG/DL TRIGLYCERIDES (test code = 2232) 102 MG/DL HDL CHOLESTEROL (test code = 2220) 38 MG/DL CALCULATED LDL CHOL (test co de = 2237) 94 MG/DL RISK RATIO LDL/HDL (test cod e = 2238) 2.46 RATIO Andrew VinesCBC W/AUTO [id number] 00:00:00* Test Item Value Reference Range Interpretation Comme nts WBC (test code = 1001) 7.3 K/UL RBC (test code = 1002) 4.98 M/UL HEMOGLOBIN (test code = 1003) 14.6 G/DL HEMATOCRIT (test code = 1004) 44.2 % MCV (test code = 1005) 88.8 fL MCH (test code = 1006) 29.3 PG MCHC (test code = 1007) 33.0 G/DL RDW (test code = 1038) 14.6 % NEUTROPHILS (test code = 1008) 49 % LYMPHOCYTES (test code = 1010) 39 % MONOCYTES (test code = 1011) 5 % EOSINOPHILS (test code = 1012) 6 % PLATELET COUNT (test code = 1015) 147 K/UL Andrew VinesHEMOGLOBIN [id number] 00:00:00* Test Item Value Reference Range Interpretation Comme suman HEMOGLOBIN A1c (test code = 78020) 5.0 % Andrew VinesTHYROID II PROFILE (T3U, T4, T7, TSH)2015-02-06 00:00:00* Test Item Value Reference Range Interpretation Comme nts T3 UPTAKE (test code = 2817) 27.9 % T4 (THYROXINE) (test code = 2819) 7.3 UG/DL CALCULATED T7 (FTI) (test co de = 2820) 2.04 TSH (test code = 2821) 0.7 UIU/ML Andrew VinesCOMPREHENSIVE METABOLIC [id number] 00:00:00* Test Item Value Reference Range Interpretation Comme nts GLUCOSE (test code = 2217) 77 MG/DL BUN (test code = 2208) 13 MG/DL CREATININE (test code = 2214) 1.1 MG/DL eGFR AMER. (test cod e = 87133) 90 ML/MIN/1.73 eGFR NON- AMER. (test code = 15727) 74 ML/MIN/1.73 CALCULATED BUN/CREAT (test code = 2235) 12 RATIO SODIUM (test code = 2231) 141 MEQ/L POTASSIUM (test code = 2228) 3.8 MEQ/L CHLORIDE (test code = 2215) 104 MEQ/L CARBON DIOXIDE (test code = 2206) 24 MEQ/L CALCIUM (test code = 2209) 9.7 MG/DL PROTEIN, TOTAL (test code = 222) 7.2 G/DL ALBUMIN (test code = 220) 4.7 G/DL CALCULATED GLOBULIN (test co de = 2240) 2.5 G/DL CALCULATED A/G RATIO (test code = 2234) 1.9 RATIO BILIRUBIN, TOTAL (test code = 2207) 0.5 MG/DL ALKALINE PHOSPHATASE (test code = 220) 48 U/L SGOT (AST) (test code = 221) 15 U/L SGPT (ALT) (test code = 2219) 10 U/L Andrew VinesLIPID [id number] 00:00:00* Test Item Value Reference Range Interpretation Comme nts CHOLESTEROL (test code = 2210) 152 MG/DL TRIGLYCERIDES (test code = 2232) 102 MG/DL HDL CHOLESTEROL (test code = 2220) 38 MG/DL CALCULATED LDL CHOL (test co de = 223) 94 MG/DL RISK RATIO LDL/HDL (test cod e = 223) 2.46 RATIO Andrew VinesCBC W/AUTO [id number] 00:00:00* Test Item Value Reference Range Interpretation Comme nts WBC (test code = 1001) 7.3 K/UL RBC (test code = 1002) 4.98 M/UL HEMOGLOBIN (test code = 1003) 14.6 G/DL HEMATOCRIT (test code = 1004) 44.2 % MCV (test code = 1005) 88.8 fL MCH (test code = 1006) 29.3 PG MCHC (test code = 1007) 33.0 G/DL RDW (test code = 1038) 14.6 % NEUTROPHILS (test code = 1008) 49 % LYMPHOCYTES (test code = 1010) 39 % MONOCYTES (test code = 1011) 5 % EOSINOPHILS (test code = 1012) 6 % PLATELET COUNT (test code = 1015) 147 K/UL Andrew Vines Notes | Date/Time Note Provider Source Andrew Vines [facility]2024-12-30 00:00:00 Andrew Vines [facility]2024-10-16 00:00:00 Andrew Vines [facility]2024-09-26 09:14:12 Chief Complaint Patient presents with Establish Care Abdominal Pain Low abdominal pain. Patten when he urinates. Nausea. He went to [facility] ER yesterday. No findings on labs. Negative CT ABD. Valeria Miles MA II [facility]2024-05-02 00:00:00 Andrew Vines [facility]2024-04-10 13:25:10 Called pt and apologized for delay in getting authorization from pt insurance company for the CT. Pt stated he has decided to cancel CT at this time, he is starting to get feeling back in his feet and started taking Zzzquil at night so he has been able to get some sleep and his mind isn't racing. Let pt know if needed orders will still be active in his chart if he decided to have CT completed. Advised pt to schedule f/u appt later if needed. Pt verbalized understanding to all. Helga Mcconnell Count includes the [facility]2024-04-10 12:59:31 Pt states he was called today for the second time to reschedule the CT scans he was set for tomorrow. Wants to know if he doesn't still need to have them performed or why they've been postponed again. [facility] D/C home. GCS15, VS stable. Given D/C paperwork. Pt ambulatory at time of discharge. Pt educated on med usage, follow up care, s/s worsening condition, need for hydration. Pt verbalized understanding. Pt ambulated from ED with family in NAD [employer] Kori Yuen [place] [id number] 22:07:08 Safety Note Bed low/locked, side rails up x2, call light within reach, patient verbalized understanding of how/when to use. Family members present. Mine Arteaga RN [employer] Mine Arteaga [place] [id number] 20:36:56 Numbness to the legs for 2-3 days, generalized body aches. Pt states that he was seen at [facility] yesterday, and seen at the [facility] today, pt states that he was given zofran and bentyl but he can afford the meds [employer] Layla Guerra [facility]"
[2024-10-02] MEDS ORDERED: ONDANSETRON 4 MG/2 ML VIAL ONE (04:22)
[2024-10-02] MEDS ORDERED: KETOROLAC 30 MG/ML INJ ONE ×2 (04:23→04:30)
[2024-10-02] MEDS ORDERED: NA CHLORIDE 0.9% 50 ML ONE (04:23)
[2024-10-02] MEDS ORDERED: HALOPERIDOL LACT 5 MG/ML INJ ONE (04:23)
[2024-10-02] MEDS ORDERED: NA CHLORIDE 0.9% 1,000 ML ONE (04:23)
[2024-10-02 04:38] LABS: Absolute Eosinophils 0.7 K/uL (0-0.5); Absolute Lymphocytes (CBC) 3.6 K/uL (0.7-4.9); Absolute Monocytes 0.5 K/uL (0.1-1.3); Absolute Neutrophil 4.6 K/uL (1.8-8.0); Basophils % 0.1 % (0-1.3); Eosinophils % 7.1 % (0-4.4); Hemoglobin 15.3 g/dL (13.6-17.9); Lymphocytes % 38.5 % (15.3-44.8); MCH 30.8 pg (27.0-35.0); MCHC 35.7 g/dL (32.0-36.0); MCV 86.4 fL (80-100); MPV 9.1 fL (7.6-11.3); Monocytes % 5.1 % (3.3-12.3); Neutrophils % 49.2 % (41.7-73.7); Nucleated Red Blood Cells % 0.1 % (0-0); Platelets 146 thou/uL (152-406); RBC Red Blood Cell Count 4.97 M/uL (4.33-5.43); Red Cell Distribution Width 13.6 % (12.1-15.2)
[2024-10-02 05:00] LABS: Albumin 4.1 g/dL (3.4-5.0); Albumin/Globulin Ratio 1.1 (1.1-1.8); Anion Gap 7.6 mEq/L (5.0-15.0); Bilirubin Total 0.6 mg/dL (0.2-1.0); Globulin 3.8 g/dL (2.3-3.5); Potassium 3.6 mEq/L (3.5-5.1); Protein, Total 7.9 g/dL (6.4-8.2)
[2024-10-02 05:35] LABS: Specific Gravity 1.014 (1.005-1.030); Urine Bilirubin NEGATIVE (Negative); Urine Blood Negative (Negative); Urine Clarity Clear (Clear); Urine Color Light-Yellow (Yellow); Urine Glucose NEGATIVE (Negative); Urine Ketones NEGATIVE (Negative); Urine Microscopic Reflex YN NO UMIC; Urine Nitrite NEGATIVE (Negative); Urine Protein NEGATIVE (Negative); Urine Urobilinogen Normal (Normal)
--- NOTE | 2024-10-02 05:49 | RAD REPORT ---
EXAM DESCRIPTION: Abdomen Pelvis W Contrast RadLex: CT ABDOMEN PELVIS WITH IV CONTRAST CLINICAL HISTORY: 48 years Male; ABD PAIN; IV ONLY TECHNIQUE: CT of the abdomen and pelvis [with] intravenous contrast. All CT scans at this facility use dose modulation, iterative reconstruction, and/or weight based dosi ng when appropriate to reduce radiation dose to as low as reasonably achievable. COMPARISON: CT abdomen pelvis 05/09/2024. FINDINGS: Lower thorax: Lung bases are clear Abdomen: Stomach: Small hiatal hernia. Liver: Multiple scattered rounded hypodensities, likely cysts. No intrahepatic ductal distention. Gallbladder: Nondistended Pancreas: Within normal limits Spleen: 2.3 cm rounded hypodensity, likely cyst. Right kidney: No hydronephrosis. No focal lesion. Left kidney: No hydronephrosis. 1.3 cm inferior pole hypodensity, likely cyst. Adrenal glands: Within normal limits Vascular structures: Within normal limits Nodes: No lymphadenopathy by size criteria Pelvis: Small bowel: No significant distention. Appendix: Within normal limits Colon: No distention or acute pericolonic edema. Mild wall thickening of the descending and sigmoid c olon, could be secondary to underdistention. Peritoneum: No free intraperitoneal fluid or air. Bones: No acute bone findings. Bladder: . Mild diffuse wall thickening. Reproductive organs: No acute findings. IMPRESSION: 1. Mild wall thickening of the descending and sigmoid colon, could be secondary to underdistention. Correlate with clinical presentation for colitis. 2. Mild diffuse bladder wall thickening, can be seen in setting of cystitis. Correlate with urinaly sis. Electronically signed by: Suni Castro MD 10/02/2024 05:45 AM [facility] Due to temporary technical issues with the [employer] reporting system, reports are being pavel d by the in-house radiologist without review as a courtesy to ensure prompt reporting the interpreting radiologist is fully responsible for the content of the report. Transcribed Date/Time: 10/02/2024 5:49 AM
[2024-10-02] MEDS ORDERED: DICYCLOMINE HCL 10 MG CAP ONE (06:08)
[2024-10-02] MEDS ORDERED: METOCLOPRAMIDE 5 MG TAB ONE (06:09)
--- NOTE | 2024-10-02 06:09 | ER ---
Nurse's Notes [facility] Name: Juan Campos Age: 48 yrs Sex: Male : 1975 Arrival Date: 10/02/2024 Time: 03:38 Bed 4 Private MD: Diagnosis: Acute Abdominal Pain , Acute Nausea Presentation: 10/02 04:01 Chief complaint: Patient states: abdominal pain, burning in the mouth. I want to check vc1 for STDs. Coronavirus screen: Client denies travel out of the [place] in the last 14 days. At this time, the client does not indicate any symptoms associated with coronavirus-19. Ebola Screen: Patient negative for fever greater than or equal to 101.5 degrees Fahrenheit, and additional compatible Ebola Virus Disease symptoms Patient denies exposure to infectious person. Patient denies travel to an Ebola-affected area in the 21 days before illness onset. No symptoms or risks identified at this time. Initial Sepsis Screen: Does the patient meet any 2 criteria? No. Patient's initial sepsis screen is negative. Does the patient have a suspected source of infection? No. Patient's initial sepsis screen is negative. Risk Assessment: Do you want to hurt yourself or someone else? Patient reports no desire to harm self or others. Onset of symptoms is unknown. 04:01 Method Of Arrival: Ambulatory vc1 04:01 Acuity: [place] 3 vc1 Triage Assessment: 04:23 General: Appears in no apparent distress. uncomfortable, Behavior is anxious, vc1 uncooperative. Pain: Complains of pain in abdomen. EENT: No deficits noted. No signs and/or symptoms were reported regarding the EENT system. EENT: Reports teeth sensitivity. Neuro: Level of Consciousness is awake, alert, obeys commands, Oriented to person, place, time, situation, Appropriate for age. Cardiovascular: Capillary refill < 3 seconds Patient's skin is warm and dry. Respiratory: Airway is patent Respiratory effort is even, unlabored, Respiratory pattern is regular, symmetrical. GI: Abdomen is flat, non-distended, Reports lower abdominal pain, upper abdominal pain. : No deficits noted. No signs and/or symptoms were reported regarding the genitourinary system. Derm: Skin is intact, is healthy with good turgor, Skin is dry, Skin is normal, Skin temperature is warm. Musculoskeletal: Circulation, motion, and sensation intact. Range of motion: intact in all extremities. Historical: - Allergies: 04:29 Zofran; bm8 - Home Meds: 04:04 unknown medication [Active]; vc1 - PMHx: 04:04 Anxiety; Bipolar disorder; vc1 - PSHx: 04:04 hernia repair; vc1 - Immunization history:: Adult Immunizations unknown. - Infectious Disease History:: Denies. - Social history:: Smoking status: Patient denies any tobacco usage or history of. - Family history:: not pertinent. Screenin:38 [facility] ED Fall Risk Assessment (Adult) History of falling in the last 3 months, bm8 including since admission No falls in past 3 months (0 pts) Confusion or Disorientation No (0 pts) Intoxicated or Sedated No (0 pts) Impaired Gait No (0 pts) Mobility Assist Device Used No (0 pt) Altered Elimination No (0 pt) Score/Fall Risk Level 0 - 2 = Low Risk Oriented to surroundings, Maintained a safe environment, Educated pt \T\ family on fall prevention, incl call for assistance when getting out of bed, Assessed \T\ reinforced patient's understanding of fall precautions, Hourly rounding (assess needs \T\ fall precautionary measures) done, Used ambulatory aids as needed (educated on \T\ assisted with), Used gait belt as appropriate. Abuse screen: Denies threats or abuse. Nutritional screening: No deficits noted. Tuberculosis screening: No symptoms or risk factors identified. Assessment: 05:56 Reassessment: Patient appears in no apparent distress at this time. Patient and/or bm8 family updated on plan of care and expected duration. Pain level reassessed. Patient is alert, oriented x 3, equal unlabored respirations, skin warm/dry/pink. Patient denies pain at this time. Patient states feeling better. Patient states symptoms have improved. 06:13 GI: Bowel sounds present X 4 quads. Abd is soft and non tender. bm8 Vital Signs: 04:05 BP 131 / 96; Pulse 76; Resp 16; Temp 98.8; Pulse Ox 100% ; Weight 81.65 kg; Height 5 vc1 ft. 9 in. ; 05:56 BP 138 / 85; Pulse 93; Resp 18; Temp 98.8; Pulse Ox 100% ; Pain 0/10; bm8 04:05 Body Mass Index 26.58 (81.65 kg, 175.26 cm) vc1 05:56 Pain Scale: Adult bm8 Bryan Coma Score: 04:38 Eye Response: spontaneous(4). Motor Response: obeys commands(6). Verbal Response: bm8 oriented(5). Total: 15. 05:56 Eye Response: spontaneous(4). Motor Response: obeys commands(6). Verbal Response: bm8 oriented(5). Total: 15. 10/03 01:09 Eye Response: spontaneous(4). Motor Response: obeys commands(6). Verbal Response: sp4 oriented(5). Total: 15. ED Course: 10/02 03:39 Patient arrived in ED. jj6 03:51 Zac Galvan MD is Attending Physician. sp4 04:03 Triage completed. vc1 04:05 Arm band placed on right wrist. vc1 04:28 Cheko Burkett, RN is Primary Nurse. bm8 04:34 Radiology exam delayed due to IV insertion attempt and/or patient not having vm2 appropriate IV at this time. 04:38 Patient has correct armband on for positive identification. Bed in low position. Call bm8 light in reach. Side rails up X 1. Client placed on continuous cardiac and pulse oximetry monitoring. NIBP monitoring applied. laboratory monitor on. Pulse ox on. NIBP on. Door closed. Noise minimized. Warm blanket given. Pillow given. Verbal reassurance given. Head of bed elevated. 04:38 No provider procedures requiring assistance completed. Initial lab(s) drawn, by oh, bmDaphne sent to lab. Urine collected: clean catch specimen, clear. Inserted saline lock: 20 gauge in left antecubital area, using aseptic technique. Blood collected. Flushed with 10 mL NS. Patient maintains SpO2 saturation greater than 95% on room air. 05:24 CT Abd/Pelvis - IV Contrast Only In Process Unspecified. EDMS 06:08 Wilian Resendiz MD is Referral Physician. sp4 06:12 Provided Education on: post er care. bm8 06:12 IV discontinued, intact, bleeding controlled, No redness/swelling at site. Pressure bm8 dressing applied. Administered Medications: 04:37 Drug: Haloperidol IVP 2.5 mg/50 mL 2.5 mg IVP once; Place patient on a laboratory monitor bm8 Route: IVP; Site: left antecubital; 05:58 Follow up: Response: No adverse reaction bm8 04:37 Drug: NS 0.9% IV 1000 ml IV at 1 bolus Per protocol; to be given as a bolus over 60 bm8 minutes Route: IV; Rate: 1 bolus; Site: left antecubital; 05:58 Follow up: Response: No adverse reaction; IV Status: Completed infusion bm8 04:37 Drug: Ketorolac IVP 30 mg IVP once Route: IVP; Site: left antecubital; bm8 05:58 Follow up: Response: No adverse reaction bm8 04:38 Not Given (pt stated he was allergic, recorded info in HX): ondansetron 4 mg IVP once; bm8 over 2 minutes 06:12 Drug: Dicyclomine PO 20 mg PO once Route: PO; bm8 06:12 Follow up: Response: No adverse reaction bm8 06:12 Drug: MetoCLOPramide PO 10 mg PO once Route: PO; bm8 06:12 Follow up: Response: No adverse reaction bm8 Medication: 04:38 VIS not applicable for this client. bm8 Outcome: 06:09 Discharge ordered by . sp4 06:12 Discharged to home ambulatory, bm8 06:12 Condition: stable 06:12 Discharge instructions given to patient, Instructed on discharge instructions, follow up and referral plans. Demonstrated understanding of instructions, follow-up care, Prescriptions given X 2, 06:14 Patient left the ED. bm8 Signatures: Dispatcher [employer] EDMS Augusta Aguirre 2 Angelica Singhj6 Karishma Balderas, RN RN vc1 Zac Galvan MD MD sp4 Cheko Burkett RN RN bm8
--- NOTE | 2024-10-02 06:09 | EDPHYS ---
Physician Documentation [facility] Name: Juan Campos Age: 48 yrs Sex: Male : 1975 Arrival Date: 10/02/2024 Time: 03:38 Bed 4 Private MD: ED Physician Zac Galvan HPI: 10/02 03:51 This 48 yrs old Other Race Male presents to ER via Unassigned with complaints of Mouth sp4 Problem, STD Exposure, Abdominal Pain, PT states that he feels like his tongue is on fire. 10/03 01:09 48-year-old male presents with complaint of abdominal pain. Patient reports many other sp4 complaints but after some discussion he agreed that he primary complaint today is abdominal pain. . Historical: - Allergies: 10/02 04:29 Zofran; bm8 - Home Meds: 04:04 unknown medication [Active]; vc1 - PMHx: 04:04 Anxiety; Bipolar disorder; vc1 - PSHx: 04:04 hernia repair; vc1 - Immunization history:: Adult Immunizations unknown. - Infectious Disease History:: Denies. - Social history:: Smoking status: Patient denies any tobacco usage or history of. - Family history:: not pertinent. ROS: 10/03 01:09 Constitutional: Negative for fever, chills, and weight loss, positive for diffuse sp4 abdominal pain All other systems are negative, Exam: 01:09 Constitutional: This is a well developed, well nourished patient who is awake, alert, sp4 and in no acute distress. Head/Face: Normocephalic, atraumatic. Eyes: Pupils equal round and reactive to light, extra-ocular motions intact. Lids and lashes normal. Conjunctiva and sclera are not injected. Cornea within normal limits. Periorbital areas with no swelling, redness, or edema. ENT: Nares patent. No nasal discharge, no septal abnormalities noted. Tympanic membranes are normal and external auditory canals are clear. Oropharynx with no redness, swelling, or masses, exudates, or evidence of obstruction, uvula midline. Mucous membranes moist. Neck: Trachea midline, no thyromegaly or masses palpated, and no cervical lymphadenopathy. Supple, full range of motion without nuchal rigidity, or vertebral point tenderness. Chest/axilla: Normal chest wall appearance and motion. Nontender with no deformity. No lesions are appreciated. Cardiovascular: Regular rate and rhythm with a normal S1 and S2. No gallops, murmurs, or rubs. Normal PMI, no JVD. No pulse deficits. Respiratory: Lungs have equal breath sounds bilaterally, clear to auscultation and percussion. No rales, rhonchi or wheezes noted. No increased work of breathing, no retractions or nasal flaring. Abdomen/GI: Soft, with normal bowel sounds. No distension or tympany. No guarding or rebound. No evidence of tenderness throughout. Back: No spinal tenderness. No costovertebral tenderness. Skin: Warm, dry with normal turgor. Normal color with no rashes, no lesions, and no evidence of cellulitis. MS/ Extremity: Pulses equal, no cyanosis. Neurovascular intact. Full, normal range of motion. Neuro: Awake and alert, GCS 15, oriented to person, place, time, and situation. Cranial nerves II-XII grossly intact. Motor strength 5/5 in all extremities. Sensory grossly intact. Psych: Awake, alert, with orientation to person, place and time. Behavior, mood, and affect are within normal limits Vital Signs: 10/02 04:05 BP 131 / 96; Pulse 76; Resp 16; Temp 98.8; Pulse Ox 100% ; Weight 81.65 kg; Height 5 vc1 ft. 9 in. ; 05:56 BP 138 / 85; Pulse 93; Resp 18; Temp 98.8; Pulse Ox 100% ; Pain 0/10; bm8 04:05 Body Mass Index 26.58 (81.65 kg, 175.26 cm) vc1 05:56 Pain Scale: Adult bm8 Brennon Coma Score: 04:38 Eye Response: spontaneous(4). Motor Response: obeys commands(6). Verbal Response: bm8 oriented(5). Total: 15. 05:56 Eye Response: spontaneous(4). Motor Response: obeys commands(6). Verbal Response: bm8 oriented(5). Total: 15. 10/03 01:09 Eye Response: spontaneous(4). Motor Response: obeys commands(6). Verbal Response: sp4 oriented(5). Total: 15. MDM: 10/02 04:02 Medical Screening Exam initiated sp4 06:07 ED course: TECHNIQUE: CT of the abdomen and pelvis [with] intravenous contrast. All CT sp4 scans at this facility use dose modulation, iterative reconstruction, and/or weight based dosing when appropriate to reduce radiation dose to as low as reasonably achievable. COMPARISON: CT abdomen pelvis 05/09/2024. FINDINGS: Lower thorax: Lung bases are clear Abdomen: Stomach: Small hiatal hernia. Liver:Multiple scattered rounded hypodensities, likely cysts. No intrahepatic ductal distention. Gallbladder:Nondistended Pancreas:Within normal limits Spleen:2.3 cm rounded hypodensity, likely cyst. Right kidney:No hydronephrosis. No focal lesion. Left kidney:No hydronephrosis. 1.3 cm inferior pole hypodensity, likely cyst. Adrenal glands:Within normal limits Vascular structures:Within normal limits Nodes:No lymphadenopathy by size criteria Pelvis: Small bowel:No significant distention. Appendix:Within normal limits Colon:No distention or acute pericolonic edema. Mild wall thickening of the descending and sigmoid colon, could be secondary to underdistention. Peritoneum: No free intraperitoneal fluid or air. Bones: No acute bone findings. Bladder: . Mild diffuse wall thickening. Reproductive organs: No acute findings. IMPRESSION: 1. Mild wall thickening of the descending and sigmoid colon, could be secondary to under distention. Correlate with clinical presentation for colitis. 2. Mild diffuse bladder wall thickening, can be seen in setting of cystitis. Correlate with urinalysis. . 10/03 01:09 Differential diagnosis: dental caries, gingivitis, dental abscess, aphthous ulcers, sp4 acute necrotizing ulcerative gingivitis, gingivostomatitis. Data reviewed: vital signs, nurses notes, lab test result(s), radiologic studies, CT scan. Consideration of Admission/Observation Escalation of care including admission/observation considered. ED course: Workup today is unremarkable. Patient stable for discharge home. 10/02 04:02 Order name: CBC with Diff; Complete Time: 05:58 sp4 10/02 04:02 Order name: CMP; Complete Time: 05:58 sp4 10/02 04:02 Order name: Lipase; Complete Time: 05:58 sp4 10/02 04:02 Order name: Urinalysis w/ reflexes; Complete Time: 05:58 sp4 10/02 04:02 Order name: CT Abd/Pelvis - IV Contrast Only sp4 10/02 04:02 Order name: IV Saline Lock; Complete Time: 04:43 sp4 10/02 04:02 Order name: Labs collected and sent; Complete Time: :43 sp4 Administered Medications: 10/02 04:37 Drug: Haloperidol IVP 2.5 mg/50 mL 2.5 mg IVP once; Place patient on a secured entrance monitor bm8 Route: IVP; Site: left antecubital; 05:58 Follow up: Response: No adverse reaction bm8 04:37 Drug: NS 0.9% IV 1000 ml IV at 1 bolus Per protocol; to be given as a bolus over 60 bm8 minutes Route: IV; Rate: 1 bolus; Site: left antecubital; 05:58 Follow up: Response: No adverse reaction; IV Status: Completed infusion bm8 04:37 Drug: Ketorolac IVP 30 mg IVP once Route: IVP; Site: left antecubital; bm8 05:58 Follow up: Response: No adverse reaction bm8 04:38 Not Given (pt stated he was allergic, recorded info in HX): ondansetron 4 mg IVP once; bm8 over 2 minutes 06:12 Drug: Dicyclomine PO 20 mg PO once Route: PO; bm8 06:12 Follow up: Response: No adverse reaction bm8 06:12 Drug: MetoCLOPramide PO 10 mg PO once Route: PO; bm8 06:12 Follow up: Response: No adverse reaction bm8 Disposition Summary: 10/02/24 06:09 Discharge Ordered Notes: Location: Home sp4 Problem: new sp4 Symptoms: have improved sp4 Condition: Stable sp4 Diagnosis - Acute Abdominal Pain , Acute Nausea sp4 Followup: sp4 - With: Wilian Resendiz MD - When: 7 - 10 days - Reason: Recheck today's complaints Discharge Instructions: - Discharge Summary Sheet sp4 - Abdominal Pain, Adult, [id number] sp4 Forms: - Patient Portal Instructions sp4 Prescriptions: - dicyclomine 10 mg Oral capsule - take 1 capsule ORAL route 4 times per day PRN abdominal pain; 30 capsule; sp4 Refills: 0, Product Selection Permitted - Reglan 10 mg Oral tablet - take 1 tablet ORAL route every 8 hours PRN nausea; 30 tablet; Refills: 0, sp4 Product Selection Permitted Signatures: Dispatcher [employer] EDMS Karishma Balderas RN RN vc1 Zac Galvan MD MD sp4 Cheko Burkett RN RN bm8 Corrections: (The following items were deleted from the chart) 04:02 04:02 CBC+H.LAB.BRZ ordered. EDMS EDMS 04:02 04:02 COMPREHENSIVE METABOLIC PANEL+C.LAB.BRZ ordered. EDMS EDMS 04:02 04:02 LIPASE+C.LAB.BRZ ordered. EDMS EDMS 04:02 04:02 Urinalysis+U.LAB.BRZ ordered. EDMS EDMS 04:02 04:02 Abdomen Pelvis W Con+CT.RAD.BRZ ordered. EDMS EDMS
[2024-10-03 02:00] VITALS: TEMP 98.8; O2SAT 100
[2024-10-03 02:01] VITALS: BP 138/85
== END 2024-10-02 06:14 | disposition home or self-care (01) ==
LOC: ER 03:38
DX: R10.9 Unspecified abdominal pain (principal); R11.0 Nausea
CPT/HCPCS: 85025; 36415; 81003; 83690; 80053; 74177; Q9967; J1630; J7030; J2405